=== PATIENT | male | born 1965 | race Caucasian/White ===

== ENCOUNTER 2018-11-14 08:55 | Day surgery (SDC) | payer BC ==
[~2018-11-14 08:55] MED LIST: BUPIVACAINE 0.5% PF 10 ML VIAL ONE
[2018-11-14] MEDS ORDERED: CEFAZOLIN/SWI 1gm 1 GM/10 ML SYR ONE (08:56)
[2018-11-14] MEDS ORDERED: Ringers Lactate 1,000 ML IV ONE (08:56)
[2018-11-14] MEDS ORDERED: PROPOFOL 200 MG/20 ML VIAL IV ONE (09:27)
[2018-11-14] MEDS ORDERED: MIDAZOLAM HCL 2 MG/2 ML INJ ONE (09:28)
[2018-11-14] MEDS ORDERED: LIDOCAINE 2% MPF 5 ML VIAL ONE (09:28)
[2018-11-14] MEDS ORDERED: ROCURONIUM 50 MG/5 ML VIAL IV ONE (09:28)
[2018-11-14] MEDS ORDERED: FENTANYL CITR 100 MCG/2 ML ONE (09:28)
[2018-11-14] MEDS ORDERED: ONDANSETRON 4 MG/2 ML VIAL ONE (09:29)
[2018-11-14] MEDS ORDERED: KETOROLAC 30 MG/ML INJ ONE (11:05)
[2018-11-14] MEDS: HYDROMORPHONE HCL 1 MG/ML INJ ONE ×4 (11:33→11:55)
[2018-11-14] MEDS ORDERED: HYDROCODONE/APAP 7.5/325 MG TAB PO ONE (12:50)
[2018-11-14] MEDS ORDERED: HYDROCODONE/APAP 7.5/325 MG TAB ONE (13:03)
--- NOTE | 2018-11-14 13:11 | OP ---
Date of Procedure: 11/14/2018 Surgeon: Marvin Tejeda MD Forensic Investigator: OLI Junior. Preoperative Diagnosis: Incarcerated umbilical hernia. Postoperative Diagnosis: Incarcerated umbilical hernia. Procedures: Laparoscopic repair of incarcerated umbilical hernia. Partial omentectomy. Estimated Blood Loss: Minimal. Specimen: Hernia sac and omentum. Findings: Above. Complications: None. Anesthesia: General. Disposition: The patient tolerated the procedure in stable condition, taken to Recovery in good gene ral condition. Procedure In Detail: The patient was brought to the OR and placed in supine position. General anest hesia was begun. The patient was prepped and draped in usual sterile fashion. Marcaine 0.5% was inf iltrated locally. A 15-blade was used to make a 1 cm left upper quadrant incision. Subcutaneous tis sues divided. The fascia was identified and divided. A #1 Vicryl stay suture was placed. Peritonea l cavity was entered with sharp and blunt dissection. A 12 mm trocar was placed into the peritoneal cavity under direct vision. Pneumoperitoneum was established. A 5 mm trocar placed in the left lowe r quadrant. Laparoscopy revealed a large incarcerated omental hernia in the umbilicus. The neck was small; however, the hernia itself was very big and protruding. LigaSure was used to divide the omen schuyler at the level of the peritoneal surface and then a 6 cm incision made over the incision where the patient had excess skin, which was excised as well and then the hernia sac and omental contents were identified. Partial omentectomy was done and specimen consisting of sac and omentum was sent to Path ology. Good fascial edges were obtained. Approximately 4 cm defect remained, and then #1 PDS runnin g suture used to close the fascial defect. Pneumoperitoneum was established and then a 10 x [address] Marlex mesh placed in the peritoneal cavity. Balloon system utilized in the standard way and then AbsorbaTack was used to secure the mesh to the peritoneal surface, complete coverage with good borde rs of at least [address] around the hernia defect was accomplished, and then there was no evid ence of bleeding or bowel injury appreciated. Subsequently, all trocars were removed under direct vi nish. Stay sutures were tied to each other to approximate the fascia. Subcutaneous wounds were irri gated. Bleeding controlled with cautery. A 3-0 chromic used to reapproximate subcutaneous tissue. Poornima used to closed skin. Sterile dressing was applied. The patient was awakened and taken to Re covery in good general condition. JORGITO/KACIE Voice ID: [id number] Report ID: [id number]
--- NOTE | 2018-11-14 13:11 | DS ---
The patient will go to Day Surgery and home when stable. Disposition: Home. Condition: Stable. Discharge Instructions: Resume home medications and diet. Activity as tolerated. No heavy lifting. Remove outer dressing in 2 days. Shower. Keep wound clean and dry. Keep abdominal binder as inst ructed. Tylenol No. 3 one table p.o. q.4 p.r.n. pain. Follow up in my office in 10 days. Call for a ppointment. JORGITO/KACIE Voice ID: [id number] Report ID: [id number]
== END 2018-11-14 13:55 | disposition home or self-care (01) ==
LOC: OR 08:55
PROVIDERS: ATTEND Surgery
PROC: 0WUF4JZ Supplement Abdominal Wall with Synthetic Substitute, Percutaneous Endoscopic Approach (ICD-10-PCS; principal; 2018-11-14 10:15)
DX: K42.0 Umbilical hernia with obstruction, without gangrene (principal); E11.9 Type 2 diabetes mellitus without complications; I10 Essential (primary) hypertension
CPT/HCPCS: 88302; J0690; J1170; J2250; J2405; J2704; J3010

== ENCOUNTER 2023-10-21 12:27 | Emergency (ER) | payer SELFPAY ==
--- OUTSIDE RECORDS SUMMARY | 2023-10-21 12:51 | XMS REPORT | Continuity of Care Document ---
Author Name Unknown Address [address] [facility] [address] [place] [address] [facility] Address [address] [facility] [address] [place] [address] Care Team Providers Care Side Hemmer Name Role Phone NONE, NONE Primary Care Physician Unavailab CARSON Olmedo Attending Clinician Unavai ULICES Antonio Attending Clinician Unavailable DAYNA ADRIAN Attending Clinician Unava ilable SYSTEM, PROVIDER NOT IN Attending Clinician Unav ailGERRY Zapata Attending Clinician Unavail able GERRY PATEL Attending Clinician Unavail able [facility]ending Clinician U Frandy Rodriguez MD Attending Clinician [phone] FRANDY UMANA Attending Clinician Unavailable 1, [facility] Attending Clinician Unavailable Carson Garcia MD Attending Clinician [phone] Pob, [facility] Main Attending Clinician Unavailabl e Doctor Unassigned, [place] Attending Clinician U Jim Ellis Attending Clinician [phone] Alfredo Jaffe DO Attending Clinician [phone] Carson Goddard MD Attending Clinician + [phone] Linda Mai LVN Attending Clinician [phone] Lea CHAPPELL, Pedro Becerra Attending Clinician Dennys CHAPPELL, Mohsen Attending Clinician [phone] ERUM MERAZ Attending Clinician Unavailable Nitza CHAPPELL, Libseth Attending Clinician LISBETH High Attending Clinician Unavailjael swain 6, [facility] Infusion Chair Attending Clinician Del Woodward MD, Shira Ramos Attending Clinician [phone] SHIRA WOODWARD RP Attending Clinician Unavailable [facility] Attending Clinician Unavailable Jamil SOTO, Gertrude Magdaleno Attending Clinician Unavail able 5, [facility] Infusion Chair Attending Clinician Del Adrian MD, Dayna Rand Attending Clinician [phone] ALIZE CARABALLO Attending Clinician Unavailable Ilya VELASCO, Alize Attending Clinician [phone] Only, [facility] Test Attending Clinician Unavailable Kaela CHAPPELL, Og Thompson Attending Clinician [phone] OG SHERWOOD Attending Clinician Unavailjosh Peace MD, Carson Barlow Attending Clinician [phone] Yaneli Diaz DO Attending Clinici an CARSON GARCIA Attending Clinician UnavailSalazar Brooks DO Attending Clinician [phone] Erum Thompson Attending Clinician [phone], [facility] Infusion Chair Attending Clinician Dayna Henriquez MD Attending Clinician [phone] Ki CHAPPELL, Manasa Patino Attending Clinician 2, [facility] Infusion Chair Attending Clinician Del talavera 3, [facility] Infusion Chair Attending Clinician Del Alvarez MD, Ulices Kenny Attending Clinician [phone] Robert De Leon MD Attending Clinician [phone] PHILLY DUMONT Attending Clinician Unavailable Philly Marshall Attending Clinician [phone] Michelle Abraham Attending Clinician Unavaila brynn Sheldon MD, Eliud Attending Clinician [phone] Roshan Madrid MD Attending Clinician [phone] Kenny CHAPPELL, Luis Attending Clinician + Sai Painter MD Attending Clinician [phone] Elham Wells MD Attending Clinician Unavailab Matt Key DO Attending Clinician [phone] Doni Coelho MD Attending Clinician [phone] DONI COELHO Attending Clinician Unavailable ALFREDO JAFFE Admitting Clinician Unavailable ULICES ALVAREZ Admitting Clinician Unavailable DAYNA ADRIAN Admitting Clinician Unava GERRY Conroy Admitting Clinician Unavail able Alfredo Jaffe DO Admitting Clinician [phone] PEDRO MANRIQUEZ Admitting Clinician Unavail able Pedro Manriquez MD Admitting Clinician LISBETH GODDARD Admitting Clinician Unavaila Lisbeth Vizcaino MD Admitting Clinician FRANDY UMANA Admitting Clinician Unavailable Dayna Adrian MD Admitting Clinician [phone] CARSNO GODDARD Admitting Clinician Carson Ribeiro MD Admitting Clinician + [phone] Ulices Alvarez MD Admitting Clinician [phone] Doni Coelho MD Admitting Clinician [phone] DONI COELHO Admitting Clinician Unavailable Payers Payer Name Policy Type Policy Number Effective Date Expirati on Date Source [facility] [id number] 2022 00:00:00 2022 00:00:00 [id number] 1959 00:00:00 Problems Condition Name Condition Details Condition Category Status Onset Date Resolution Date Last Treatment Date Treating Clinician Comments Source Wound cellulitis Wound cellulitis Disease Active 12-27 00:00: 00 [facility] Subacute frontal sinusitis Subacute frontal sinusitis Disease Active 2023-0 7-03 00:00: 00 [facility] Neutropeni c fever Neutropeni c fever Disease Active 0 6- 00:00: 00 [facility] Pancytopen ia due to antineopla stic chemothera py Pancytopen ia due to antineopla stic chemothera py Disease Active 0 6 00:00: 00 [facility] Immunocomp romised status associated with infection Immunocomp romised status associated with infection Disease Active 12-19 00:00: 00 [facility] Chronic hepatitis C Chronic hepatitis C Disease Active 0 6 00:00: 00 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 Burkitt's lymphoma of lymph nodes of multiple sites Burkitt's lymphoma of lymph nodes of multiple sites Disease Active 2021-06 1-23 00:00: 00 [facility] Burkitt's lymphoma Burkitt's lymphoma Disease Active 2021-06 0-25 00:00: 00 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 Burkitt lymphoma Burkitt lymphoma Disease Active 2021-06 0-13 00:00: 00 [facility] Neoplasm/c ancer Neoplasm/c ancer Disease Active 9-13 00:00: 00 [facility] Bilateral leg edema Bilateral leg edema Disease Active 9-13 00:00: 00 [facility] Hypophosph atemia Hypophosph atemia Disease Active - 00:00: 00 [facility] Hypercalce jacqueline Hypercalce jacqueline Disease Active 02-27 00:00: 00 [facility] Obesity (BMI 30-39.9) Obesity (BMI 30-39.9) Disease Active 02-27 00:00: 00 [facility] Cirrhosis of liver Cirrhosis of liver (Problem) Problem Active 2023-10-19 18:02:[address] [facility] (LUF/LI V/SA) Malignant lymphoma (clinical) Malignant lymphoma (clinical) (Problem) Problem Active 2023-10-19 18:02:[address] [facility] (LUF/LI V/SA) History of hepatitis C History of hepatitis C (Problem) Problem Active 2023-10-19 18:02:[address] [facility] (LUF/LI V/SA) Repair of ventral hernia Repair of ventral hernia (Problem) Problem Active 2023-10-19 18:29:[address] [facility] (LUF/LI V/SA) Allergies, Adverse Reactions, Alerts Allergy Name Allergy Type Status Severity Reaction(s) Onset Date Inactive Date Treating Clinician Comments Source NO KNOWN ALLERGIE S Drug Class Active [facility] No Known Drug Allergie s DA Active [facility] (LUF/LI V/SA) Social History Social Habit Start Date Stop Date Quantity Comments Source History of tobacco use Cigarette Smoker [facility] History SDOH Social Connections Get Together [facility] History SDOH Social Connections [facility] History SDOH Social Connections Membership [facility] History SDOH Social Connections Meetings [facility] Gender identity [facility] of Social function 2023-01-23 00:00:00 2023-01-23 00:00:00 [facility] History SDOH Food Worry 2022-12-28 00:00:00 2022-12-28 00:00:00 1 [facility] History SDOH Food Scarcity 2022-12-28 00:00:00 2022-12-28 00:00:00 1 [facility] History SDOH Transport Med 2022-12-28 00:00:00 2022-12-28 00:00:00 2 [facility] History SDOH Transport Non-Med 2022-12-28 00:00:00 2022-12-28 00:00:00 2 [facility] History SDOH Alcohol Frequency 2022-12-28 00:00:00 2022-12-28 00:00:00 1 [facility] History SDOH Social Connections Phone 2022-12-28 00:00:00 2022-12-28 00:00:00 5 [facility] History SDOH Social Connections Living 2022-12-28 00:00:00 2022-12-28 00:00:00 5 [facility] History SDOH Financial 2022-12-28 00:00:00 2022-12-28 00:00:00 4 [facility] History SDOH Physical Activity DPW 2022-12-28 00:00:00 2022-12-28 00:00:00 0 [facility] History SDOH Physical Activity MPS 2022-12-28 00:00:00 2022-12-28 00:00:00 0 [facility] History SDOH Housing Unable to Pay 2022-12-28 00:00:00 2022-12-28 00:00:00 2 [facility] History SDOH Housing Places Lived 2022-12-28 00:00:00 2022-12-28 00:00:00 1 [facility] History SDOH Housing Homeless Last Year 2022-12-28 00:00:00 2022-12-28 00:00:00 2 [facility] Tobacco Comment 2022-12-20 00:00:00 2022-12-20 00:00:00 Does not smoke anymore [facility] Exposure to SARS-CoV-2 (event) 2022-11-10 00:00:00 2022-11-20 10:14:00 Not sure [facility] History SDOH Alcohol Std Drinks 2022-07-17 00:00:00 2022-07-17 00:00:00 1 [facility] History SDOH Alcohol Binge 2022-07-17 00:00:00 2022-07-17 00:00:00 1 [facility] Education 2022-05-25 00:00:00 2022-05-25 00:00:00 12 [facility] Alcohol intake 2022-03-06 00:00:00 2022-03-06 00:00:00 Current drinker of alcohol (finding) [facility] Tobacco use and exposure 2022-02-27 00:00:00 2022-02-27 00:00:00 Smokeless tobacco non-user [facility] Sex Assigned At 1965 00:00:00 1965 00:00:00 [facility] Smoking Status Start Date Stop Date Source [facility]SA) Ex-smoker 2022-12-20 00:00:00 2022-12-20 [facility]00[facility] Medications Ordered Medication Name Filled Medication Name Start Date Stop Date Current Medication? Ordering Clinician Indication Dosage Frequency Signature (SIG) Comments Components Source furosemide 40 MG Oral Tablet furosemide 40 MG Oral Tablet 10-18 21:00: 15 No 40mg orally every morning [facility] (LUF/LI V/SA) spironolact one 100 MG Oral Tablet spironolact one 100 MG Oral Tablet 10-18 21:00: 14 No 100mg 1xD orally daily [facility] (LUF/LI V/SA) fludeoxyglu cose F-18 (FDG) injection 10 millicurie 02-26 15:25: 00 02-26 15:28 :00 No [id number] 10mCi 10 millicurie , Intravenou s, ONCE, 1 dose, On Sat02/26/23 at 1030, Routine [facility] levoFLOXaci n (LEVAQUIN) tablet 500 mg 12-28 14:00: 00 Yes 500mg 500 mg, Oral, Q24H ABX, First dose on Sat12/28/22 at 0900, Until Discontinu ed, JOSEFINA
Re ason for Anti-Infec tive: Empiric Therapy for Suspected Infection< br>Empiric Therapy Site: Blood
D uration of therapy: [address] [facility] sulfamethox azole-trime thoprim (BACTRIM DS) 800-160 mg per tablet 1 tablet 12-28 14:00: 00 Yes 1{tbl} 1 tablet, Oral, QM// SAT, First dose on Sat12/28/22 at 0900, Until Discontinu ed, JOSEFINA
Re ason for Anti-Infec tive: Empiric Therapy for Suspected Infection< br>Empiric Therapy Site: Blood
D uration of therapy: [address] [facility] omeprazole (PRILOSEC) capsule 20 mg 12-28 14:00: 00 Yes 20mg 20 mg, Oral, DAILY, First dose on Sat12/28/22 at 0900, Until Discontinu ed [facility] foLIC acid (FOLATE) tablet 1 mg 12-28 14:00: 00 Yes 1mg 1 mg, Oral, DAILY, First dose on Sat12/28/22 at 0900, Until Discontinu ed, Routine [facility] febuxostat (ULORIC) tablet 40 mg 12-28 14:00: 00 Yes 40mg 40 mg, Oral, DAILY, First dose on Sat12/28/22 at 0900, Until Discontinu ed, Routine [facility] cholecalcif andrzej (vitamin D3) tablet 1,000 Units 12-28 14:00: 00 Yes 1000U 1,000 Units, Oral, DAILY, First dose on Sat12/28/22 at 0900, Until Discontinu ed, Routine [facility] chlorhexidi ne (PERIDEX) 0.12 % mouthwash 15 mL 12-28 13:00: 00 Yes 15mL 15 mL, Oral (Swish And Spit Out), BID, First dose on Sat12/28/22 at 0800, Until Discontinu ed, Routine [facility] calcium carbonate (OSCAL-500) tablet 500 mg 12-28 13:00: 00 Yes 500mg 500 mg, Oral, BID MEALS, First dose on Sat12/28/22 at 0800, Until Discontinu ed, Routine [facility] acyclovir (ZOVIRAX) tablet 400 mg 12-28 13:00: 00 Yes 400mg 400 mg, Oral, BID, First dose on Sat12/28/22 at 0800, Until Discontinu ed, JOSEFINA [facility] KCL (KLOR-CON M20) tablet 40 mEq 12-28 11:30: 00 12-28 11:00 :00 No 40meq 40 mEq, Oral, ONCE, 1 dose, On Sat12/28/22 at 0630, Routine [facility] posaconazol e (NOXAFIL) tablet DR 300 mg 12-28 05:15: 00 Yes 300mg 300 mg, Oral, Q24H, First dose on Sat12/28/22 at 0015, Until Discontinu ed, Routine
Reason for Anti-Infec tive: Empiric Therapy for Suspected Infection< br>Empiric Therapy Site: Blood
D uration of therapy: 5 days
Re stricted use approved by: Heme/Onc faculty [facility] vancomycin (VANCOCIN) 1,500 mg in NaCl 0.9% (NS) 500 mL VIAL-MATE IV piggyback 12-28 04:15: 00 01-04 04:14 :00 No 15mg/kg 1,500 mg (rounded from 1,456.5 mg = 15 mg/kg ?97.1 kg), IV Piggyback, Q12H ABX, 14 doses, First dose on Sat12/27/22 at 2315, Last dose on Sat01/03/23 at 1115, Administer over 90 Minutes, 500 mL
R toña for Anti-Infec tive: Documented Infection< br>Documen elias Infection Site: Skin / Soft Tissue
Duration of Therapy: [address] [facility] acetaminoph en (TYLENOL) tablet 650 mg 12-28 04:10: 28 Yes 650mg 650 mg, Oral, Q6HPRN, Starting on Sat12/27/22 at 2310, Until Discontinu ed, Routine, Pain (scale 1-3) [facility] sulfamethox azole-trime thoprim 800-160 mg per tablet 12-28 00:00: 00 Yes [id number] 1{tbl} Take 1 tablet by mouth every Saturday, Saturday and Saturday. [facility] posaconazol e [address] 12-28 00:00: 00 Yes [id number] 300mg Take 3 tablets by mouth every 24 (twenty-fo ur) hours. [facility] amoxicillin 500 mg tablet 12-28 00:00: 00 01-08 04:59 :00 No [id number] 500mg Take 1 tablet by mouth in the morning and 1 tablet at noon and 1 tablet in the evening. Do all this for [address] [facility] doxycycline hyclate 100 mg capsule 12-28 00:00: 00 01-08 04:59 :00 No [id number] 100mg Take 1 capsule by mouth every 12 (twelve) hours for [address] [facility] posaconazol e [address] 12-27 00:00: 00 12-28 00:00 :00 No [id number] 300mg Take 3 tablets by mouth every 24 (twenty-fo ur) hours. [facility] KCL (KLOR-CON M20) tablet 20 mEq 12-26 13:00: 00 12-26 13:34 :00 No 20meq 20 mEq, Oral, ONCE, 1 dose, On Sat12/26/22 at 0800, Routine [facility] levoFLOXaci n 500 mg tablet 12-26 00:00: 00 Yes [id number] 500mg Take 1 tablet by mouth in the morning. Start on Day 8 and take [address] [facility] acyclovir 400 mg tablet 12-26 00:00: 00 Yes [id number] 400mg Take 1 tablet by mouth in the morning and 1 tablet in the evening. [facility] febuxostat 40 mg tablet 12-26 00:00: 00 Yes [id number] 40mg Take 1 tablet by mouth in the morning. [facility] ceFEPIme (MAXIPIME) 2,000 mg in NaCl 0.9% (NS) 100 mL MINI-BAG 12-25 09:45: 00 12-28 01:44 :00 No 2000mg 2,000 mg, IV Piggyback, Q8H ABX, 8 doses, First dose (after last modificati on) on Sat12/25/22 at 0445, Last dose on Sat12/27/22 at 1245, Administer over 4 Hours, 100 mL
Reas on for Anti-Infec tive: Empiric Non-Surgic al Prophylaxi s
Durat ion of therapy: 5 days [facility] ceFEPIme (MAXIPIME) 2,000 mg in NaCl 0.9% (NS) 100 mL MINI-BAG 12-22 22:45: 00 12-25 05:48 :52 No 2000mg 2,000 mg, IV Piggyback, Q8H ABX, 15 doses, First dose (after last modificati on) on Sat12/22/22 at 1745, Last dose on Sat12/27/22 at 0945, Administer over 4 Hours, 100 mL
Reas on for Anti-Infec tive: Empiric Non-Surgic al Prophylaxi s
Durat ion of therapy: [address] [facility] ceFEPIme (MAXIPIME) 1,000 mg in NaCl 0.9% (NS) 100 mL MINI-BAG 12-22 15:00: 00 12-22 15:07 :00 No 1000mg 1,000 mg, IV Piggyback, ONCE, 1 dose, On Sat12/22/22 at 1000, Administer over 30 Minutes, 100 mL
Reas on for Anti-Infec tive: Empiric Non-Surgic al Prophylaxi s
Durat ion of therapy: [address] [facility] filgrastim- sndz (ZARXIO) 480 mcg/0.8 mL injection syringe 480 mcg 12-22 14:00: 00 12-26 13:35 :00 No 480ug 480 mcg, Subcutaneo us, DAILY, 5 doses, First dose (after last modificati on) on Sat12/22/22 at 0900, Last dose on Sat12/26/22 at 0900, Routine
sales team member approving Restricted medication : [place] [facility] levoFLOXaci n (LEVAQUIN) tablet 750 mg 12-21 22:00: 00 12-22 14:13 :52 No 750mg 750 mg, Oral, QPM, 7 doses, First dose on Sat12/21/22 at 1700, Last dose on Sat12/27/22 at 1700, JOSEFINA
Re ason for Anti-Infec tive: Empiric Non-Surgic al Prophylaxi s
Durat ion of therapy: [address] [facility] filgrastim- sndz (ZARXIO) 480 mcg/0.8 mL injection syringe 480 mcg 12-19 14:00: 00 12-22 13:47 :08 No 480ug 480 mcg, Subcutaneo us, DAILY, 5 doses, First dose on Sat12/19/22 at 0900, Last dose on Sat12/23/22 at 0900, Routine
sales team member approving Restricted medication : [place] [facility] posaconazol e (NOXAFIL) tablet DR 300 mg 12-18 15:15: 00 Yes 300mg 300 mg, Oral, Q24H ABX, First dose on Sat12/18/22 at 1015, Until Discontinu ed, Routine
Reason for Anti-Infec tive: Empiric Non-Surgic al Prophylaxi s
Durat ion of therapy: 72 hours
R estricted use approved by: Heme/Onc faculty [facility] melatonin (MELATIN) tablet 6 mg 12-18 00:34: 07 Yes 6mg 6 mg, Oral, QHSPRN, Starting on Sat12/17/22 at 1934, Until Discontinu ed, Routine, Insomnia [facility] melatonin (MELATIN) tablet 6 mg 12-17 01:30: 00 12-17 01:06 :00 No 6mg 6 mg, Oral, ONCE, 1 dose, On 12/16/22 at 2030, Routine [facility] posaconazol e (NOXAFIL) 300 mg in NaCl 0.9% (NS) piggyback 12-16 21:45: 00 12-18 14:08 :47 No 300mg 300 mg, IV Piggyback, Q24H ABX, First dose on 12/16/22 at 1645, Until Discontinu ed, Administer over 90 Minutes, 150 mL
Reas on for Anti-Infec tive: Empiric Therapy for Suspected Infection& lt;br>Empi carmen Therapy Site: Blood
D uration of therapy: [address] [facility] fluconazole (DIFLUCAN) tablet 400 mg 12-16 14:00: 00 12-16 20:33 :38 No 400mg 400 mg, Oral, DAILY, 5 doses, First dose on 12/16/22 at 0900, Last dose on Aditi 12/20/22 at 0900, JOSEFINA
Re ason for Anti-Infec tive: Empiric Non-Surgic al Prophylaxi s
Durat ion of therapy: [address] [facility] KCL (KLOR-CON M20) tablet 40 mEq 12-16 13:00: 00 12-16 13:28 :00 No 40meq 40 mEq, Oral, Q2H, 1 dose, First dose on 12/16/22 at 0800, Routine [facility] iopamidol (ISOVUE 370-500 mL) injection 80 mL 12-16 05:46: 00 12-16 05:35 :00 No [id number] 80mL 80 mL, Intravenou s, ONCE, 1 dose, On 12/16/22 at 0100, Routine [facility] melatonin (MELATIN) tablet 6 mg 12-16 02:45: 00 12-16 04:41 :00 No 6mg 6 mg, Oral, ONCE, 1 dose, On 12/15/22 at 2145, Routine [facility] ceFEPIme (MAXIPIME) 2,000 mg in NaCl 0.9% (NS) 100 mL MINI-BAG 12-14 22:45: 00 12-21 00:23 :00 No 2000mg 2,000 mg, IV Piggyback, Q8H ABX, 18 doses, First dose (after last modificati on) on Sat12/14/22 at 1745, Last dose on Sat12/20/22 at 0945, Administer over 4 Hours, 100 mL
Reas on for Anti-Infec tive: Empiric Therapy for Suspected Infection< br>Empiric Therapy Site: Blood
D uration of therapy: [address] [facility] vancomycin (VANCOCIN) 2,000 mg in NaCl 0.9% (NS) 500 mL piggyback 12-13 14:30: 00 12-16 01:38 :45 No 2000mg 2,000 mg, IV Piggyback, Q12H ABX, 6 doses, First dose (after last modificati on) on Sat12/13/22 at 0930, Last dose on Sat12/15/22 at 2130, Administer over 120 Minutes, 500 mL
Reas on for Anti-Infec tive: Empiric Therapy for Suspected Infection< br>Empiric Therapy Site: Blood
D uration of therapy: [address] [facility] psyllium husk (METAMUCIL (SUGAR FREE)) 3.4 gram oral powder packet 1 Packet 12-13 14:00: 00 Yes 1{packe t} 1 Packet, Oral, DAILY, First dose on Sat12/13/22 at 0900, Until Discontinu ed, Routine [facility] filgrastim- sndz (ZARXIO) 480 mcg/0.8 mL injection syringe 480 mcg 12-12 17:00: 00 12-18 14:04 :00 No 480ug 480 mcg, Subcutaneo us, DAILY, 7 doses, First dose on Sat12/12/22 at 1200, Last dose on Sat12/18/22 at 0900, Routine
sales team member approving Restricted medication : SAMANTHA HURTADO [facility] iopamidol (ISOVUE 370-500 mL) injection 80 mL 12-12 14:29: 00 12-12 14:31 :00 No [id number] 80mL 80 mL, Intravenou s, ONCE, 1 dose, On Sat12/12/22 at 0945, Routine [facility] sulfamethox azole-trime thoprim (BACTRIM DS) 800-160 mg per tablet 1 tablet 12-12 14:00: 00 Yes 1{tbl} 1 tablet, Oral, QMON// SAT, First dose on Sat12/12/22 at 0900, Until Discontinu ed, JOSEFINA
Re ason for Anti-Infec tive: Empiric Non-Surgic al Prophylaxi s
Durat ion of therapy: 5 days [facility] ceFEPIme (MAXIPIME) 1,000 mg in NaCl 0.9% (NS) 100 mL MINI-BAG 12-11 22:45: 00 12-14 18:34 :22 No 1000mg 1,000 mg, IV Piggyback, Q8H ABX, 15 doses, First dose on Sat12/11/22 at 1745, Last dose on Sat12/16/22 at 0945, Administer over 4 Hours, 100 mL
Reas on for Anti-Infec tive: Empiric Therapy for Suspected Infection< br>Empiric Therapy Site: Blood
D uration of therapy: 5 days [facility] acetaminoph en (TYLENOL) tablet 650 mg 12-11 18:40: 55 Yes 650mg 650 mg, Oral, Q6HPRN, Starting on Sat12/11/22 at 1340, Until Discontinu ed, Routine, Pain (scale 1-3), Temp > 38 C [facility] ceFEPIme (MAXIPIME) 1,000 mg in NaCl 0.9% (NS) 100 mL MINI-BAG 12-11 15:00: 00 12-11 18:34 :00 No 1000mg 1,000 mg, IV Piggyback, ONCE, 1 dose, On Sat12/11/22 at 1000, Administer over 30 Minutes, 100 mL
Reas on for Anti-Infec tive: Empiric Therapy for Suspected Infection< br>Empiric Therapy Site: Blood
D uration of therapy: [address] [facility] vancomycin (VANCOCIN) 1,500 mg in NaCl 0.9% (NS) 500 mL VIAL-MATE IV piggyback 12-11 14:30: 00 12-13 11:19 :53 No 15mg/kg 1,500 mg (rounded from 1,597.5 mg = 15 mg/kg ?106.5 kg), IV Piggyback, Q12H ABX, 10 doses, First dose on Sat12/11/22 at 0930, Last dose on Sat12/15/22 at 2130, Administer over 90 Minutes, 500 mL
Reas on for Anti-Infec tive: Empiric Therapy for Suspected Infection< br>Empiric Therapy Site: Blood
D uration of therapy: [address] [facility] KCL (KLOR-CON M20) tablet 20 mEq 12-11 12:15: 00 12-11 13:27 :00 No 20meq 20 mEq, Oral, ONCE, 1 dose, On Sat12/11/22 at 0715, Routine [facility] acetaminoph en ADULT (OFIRMEV) injection 1,000 mg 12-11 08:15: 00 12-11 08:20 :00 No 1000mg 1,000 mg, IV Infusion, at 400 mL/hr Administer over 15 Minutes, ONCE, 1 dose, On Sat12/11/22 at 0315, Routine
Indicatio n: Non-periop erative Patient
Approved by: Per Policy (NPO Status) [facility] cytarabine (PF) 5,376 mg in NaCl 0.9% (NS) 500 mL infusion 12-11 01:00: 00 12-11 18:45 :00 No [id number] 2400mg/ m2 5,376 mg (2,400 mg/m2 ?2.24 m2 Treatment Plan BSA from Recorded weight), IV Infusion, Q12H CHEMO, Administer over 2 Hours, First dose on Sat12/10/22 at 2000, For 2 doses
D o not refrigerat e.
[facility] ondansetron (ZOFRAN (PF)) injection 8 mg 12-11 00:30: 00 12-11 15:14 :00 No [id number] 8mg 8 mg, Slow IV Push, Q12H CHEMO, First dose on Sat12/10/22 at 1930, For 2 doses
A dminister 30 minutes prior to each dose of cyclophosp hamide. Dose s of ondansetro n 16 mg and above need to be administer ed via IV piggyback. For Dose >=24mg ECG monitoring is advisable.
[facility] leucovorin 15 mg in D5W 50 mL infusion 12-10 22:00: 00 12-11 20:38 :28 No [id number] 15mg 15 mg, IV Piggyback, Q6H ABX, First dose on Sat12/10/22 at 1700, Until Discontinu ed, Administer over 15 Minutes, 50 mL [facility] cytarabine (PF) 5,376 mg in NaCl 0.9% (NS) 500 mL infusion 12-09 23:30: 00 12-10 15:28 :00 No [id number] 2400mg/ m2 5,376 mg (2,400 mg/m2 ?2.24 m2 Treatment Plan BSA from Recorded weight), IV Infusion, Q12H CHEMO, Administer over 2 Hours, First dose on Sat12/09/22 at 1830, For 2 doses
D o not refrigerat e.
[facility] ondansetron (ZOFRAN (PF)) injection 8 mg 12-09 23:00: 00 12-10 12:51 :00 No [id number] 8mg 8 mg, Slow IV Push, Q12H CHEMO, First dose on Sat12/09/22 at 1800, For 2 doses
A dminister 30 minutes prior to each dose of cyclophosp hamide. Dose s of ondansetro n 16 mg and above need to be administer ed via IV piggyback. For Dose >=24mg ECG monitoring is advisable.
[facility] methylPREDN ISolone sodium succinate (SOLU-MEDRO L) 50 mg in NaCl 0.9% (NS) piggyback 12-09 23:00: 00 12-10 13:09 :00 No [id number] 50mg 50 mg, IV Piggyback, Q12H, 2 doses, First dose on 12/09/22 at 1800, Last dose on 12/09/22 at 2000, Administer over 15 Minutes, [address] [facility] methotrexat e (PF) 1,433.6 mg in NaCl 0.9% (NS) 1,000 mL infusion 12-08 22:00: 00 12-09 22:30 :00 No [id number] 640mg/m 2 1,433.6 mg (640 mg/m2 ?2.24 m2 Treatment Plan BSA from Recorded weight), IV Infusion, ONCE, Administer over 22 Hours, On 12/08/22 at 1700, For [address] after the completion of methotrexa te bolus.
[facility] ondansetron (ZOFRAN (PF)) injection 8 mg 12-08 21:00: 00 12-09 20:59 :00 No [id number] 8mg 8 mg, Slow IV Push, Q12H CHEMO, First dose on 12/08/22 at 1600, For 2 doses
D oses of ondansetro n 16 mg and above need to be administer ed via IV piggyback. For Dose >=24mg ECG monitoring is advisable. Admi nister first dose 30 minutes prior to chemothera py.
[facility] methotrexat e (PF) 358.4 mg in NaCl 0.9% (NS) 500 mL infusion 12-08 20:00: 00 12-08 22:48 :00 No [id number] 160mg/m 2 358.4 mg (160 mg/m2 ?2.24 m2 Treatment Plan BSA from Recorded weight), IV Infusion, ONCE, Administer over 120 Minutes, On Sat12/08/22 at 1500, For [address] [facility] methylPREDN ISolone sodium succinate (SOLU-MEDRO L) 50 mg in NaCl 0.9% (NS) piggyback 12-08 19:00: 00 12-09 12:59 :00 No [id number] 50mg 50 mg, IV Piggyback, Q12H, 2 doses, First dose on Sat12/08/22 at 1400, Last dose on Sat12/08/22 at 2000, Administer over 15 Minutes, [address] [facility] prednisoLON E acetate (PRED-FORTE ) 1 % ophthalmic suspension drops 1 Drop 12-08 17:00: 00 12-15 16:59 :00 No [id number] 1[drp] 1 Drop, Both Eyes, QID, 28 doses, First dose on Sat12/08/22 at 1200, Last dose on Sat12/15/22 at 0800, Routine [facility] KCL (KLOR-CON M20) tablet 40 mEq 12-08 13:00: 00 12-08 13:10 :00 No 40meq 40 mEq, Oral, Q2H, 1 dose, First dose on Sat12/08/22 at 0800, Routine [facility] sodium bicarbonate 8.4 % (1 mEq/mL) injection 50 mEq 12-08 12:45: 00 12-08 13:10 :00 No 50meq 50 mEq, Slow IV Push, ONCE, 1 dose, On Sat12/08/22 at 0745, Routine [facility] sodium bicarbonate 8.4 % (1 mEq/mL) injection 50 mEq 12-07 19:15: 00 12-07 19:57 :00 No 50meq 50 mEq, Slow IV Push, ONCE, 1 dose, On Sat12/07/22 at 1415, Routine [facility] sodium bicarbonate 150 mEq in D5W 1,000 mL IV infusion 12-07 19:00: 00 12-11 20:38 :28 No 150meq IV Infusion, at 125 mL/hr, 150 mEq, CONTINUOUS , Starting on Sat12/07/22 at 1400, Until Sat12/11/22 at 1538, [facility]ine [facility] foLIC acid (FOLATE) tablet 1 mg 12-07 14:00: 00 Yes 1mg 1 mg, Oral, DAILY, First dose on Sat12/07/22 at 0900, Until Discontinu ed, Routine [facility] febuxostat (ULORIC) tablet 40 mg 12-07 14:00: 00 Yes 40mg 40 mg, Oral, DAILY, First dose on Sat12/07/22 at 0900, Until Discontinu ed, Routine [facility] cholecalcif andrzej (vitamin D3) tablet 1,000 Units 12-07 14:00: 00 Yes 1000U 1,000 Units, Oral, DAILY, First dose on Sat12/07/22 at 0900, Until Discontinu ed, Routine [facility] sodium bicarbonate 150 mEq in D5W 1,000 mL IV infusion 12-07 13:17: 00 12-07 18:46 :58 No 150meq IV Infusion, at 75 mL/hr, 150 mEq, CONTINUOUS , Starting on Sat12/07/22 at 0830, Until Sat12/07/22 at 1346, Routine [facility] sodium bicarbonate 150 mEq in D5W 1,000 mL IV infusion 12-07 02:30: 00 12-07 12:54 :00 No 150meq IV Infusion, at 75 mL/hr, 150 mEq, ONCE, 1 dose, On Sat12/06/22 at 2130, Routine [facility] chlorhexidi ne (PERIDEX) 0.12 % mouthwash 15 mL 12-07 01:00: 00 Yes 15mL 15 mL, Oral (Swish And Spit Out), BID, First dose on Sat12/06/22 at 2000, Until Discontinu ed, Routine [facility] acyclovir (ZOVIRAX) tablet 400 mg 12-07 01:00: 00 Yes 400mg 400 mg, Oral, BID, First dose on Sat12/06/22 at 2000, Until Discontinu ed, JOSEFINA [facility] sennosides (SENOKOT) tablet 8.6 mg 12-07 01:00: 00 12-12 14:18 :42 No 8.6mg 8.6 mg, Oral, BID, First dose (after last modificati on) on Sat12/06/22 at 1999, Until Discontinu ed, Routine [facility] polyethylen e glycol 3350 powder 17 g 12-07 01:00: 00 12-12 14:18 :42 No 17g 17 g, Oral, BID, First dose on Sat12/06/22 at 2000, Until Discontinu ed, Routine [facility] magnesium hydroxide (MILK OF MAGNESIA) 400 mg/5 mL suspension 30 mL 12-06 22:30: 00 12-15 20:11 :10 No 30mL 30 mL, Oral, BID, First dose on Sat12/06/22 at 1730, Until Discontinu ed, Routine [facility] simethicone (GAS RELIEF (SIMETHICON E)) chewable tablet 80 mg 12-06 22:00: 00 Yes 80mg 80 mg, Oral, PC+HS, First dose on Sat12/06/22 at 1700, Until Discontinu ed, Routine [facility] calcium carbonate (OSCAL-500) tablet 500 mg 12-06 22:00: 00 Yes 500mg 500 mg, Oral, BID MEALS, First dose on Sat12/06/22 at 1700, Until Discontinu ed, Routine [facility] enoxaparin (LOVENOX) injection 40 mg 12-06 22:00: 00 12-12 12:11 :23 No 40mg 40 mg, Subcutaneo us, DAILY, First dose on Sat12/06/22 at 1700, Until Discontinu ed, Routine [facility] riTUXimab (RITUXAN) 840 mg in NaCl 0.9% (NS) 840 mL infusion 12-06 22:00: 00 12-07 01:30 :00 No [id number] 375mg/m 2 840 mg (375 mg/m2 ?2.24 m2 Treatment Plan BSA from Recorded weight), IV Infusion, ONCE, Administer over 90 Minutes, On Aditi 12/06/22 at 1700, For 1 dose
In itial infusion: start rate at 50 mg/hr. If there is no reaction, increase rate by 50 mg/hr increments every 30 minutes to a maximum of 400 mg/hr.&nbs p;Subseque nt infusions: initiate rate at 100 mg/hr. If infusion is well-laura ated, rate may be escalated in 100 mg/hr increments at 30 minute intervals to a maximum of 400 mg/hr.&nbs p;For NHL, from Cycle 2 onward, may give over 90 minutes.&n bsp; Diluted solution may be refrigerat ed for 24 hours.&nbs p; Co mplete administra tion within 8 hours from removal from refrigerat ion. Infu nish-Relat ed Reactions (IRR):&nbs p;Rituxima b products can cause severe, including fatal, infusion-r elated reactions. Severe reactions typically occurred during the first infusion with time to onset of 30-120 minutes.&n bsp; Rituximab product-in duced infusion-r elated reactions and sequelae include urticaria, hypotensio n, angioedema , hypoxia, bronchospa sm, pulmonary infiltrate s, acute respirator y distress syndrome, myocardial infarction , ventricula r fibrillati on, cardiogeni c shock, anaphylact oid events, or .&nbs p; Pr emedicate patients with an antihistam ine and acetaminop hen prior to dosing. For patients with Granulomat osis with Polyangiit is (GPA) (Peter's Granulomat osis) and Microscopi c Polyangiit is (MPA), methylpred nisolone 100 mg intravenou sly or its equivalent is recommende d 30 minutes prior to each infusion. [place] medical management (e.g., glucocorti coids, epinephrin e, bronchodil ators, or oxygen) for infusion-r elated reactions as needed. Depending on the severity of the infusion-r elated reaction and the required interventi ons, temporaril y or permanentl y discontinu e RUXIENCE. Resume infusion at a minimum 50% reduction in rate after symptoms have resolved.& nbsp;Close ly monitor the following patients: those with preexistin g cardiac or pulmonary conditions , those who experience d prior cardiopulm onary adverse reactions, and those with high numbers of circulatin g malignant cells (greater than or equal to 25,000/mm3 ). &n bsp;BOXED WARNINGS:& nbsp;THIAGO NG: FATAL INFUSION-R ELATED REACTIONS, SEVERE MUCOCUTANE OUS REACTIONS, HEPATITIS B VIRUS REACTIVATI ON and PROGRESSIV E MULTIFOCAL LEUKOENCEP HALOPATHY& nbsp;Infus ion-relate d reactions: Rituximab administra tion can result in serious, including fatal infusion-r elated reactions. Deaths within 24 hours of Rituximab infusion have occurred. Approximat patricia 80% of fatal infusion-r elated reactions occurred in associatio n with the first infusion. Monitor patients closely. Discontinu e Rituximab infusion for severe reactions and provide medical treatment for Grade 3 or 4 infusion-r elated reactions. &nbs p;Severe Mucocutane ous Reactions: Severe, including fatal, mucocutane ous reactions can occur in patients receiving Rituximab. &nbs p;Hepatiti s B Virus (HBV) Reactivati on: HBV reactivati on can occur in patients treated with Rituximab, in some cases resulting in fulminant hepatitis, hepatic failure, and . Screen all patients for HBV infection before treatment initiation , and monitor patients during and after treatment with Rituximab. Discontinu e Rituximab and concomitan t medication s in the event of HBV reactivati on. & nbsp;Progr essive Multifocal Leukoencep halopathy (PML), including fatal PML, can occur in patients receiving Rituximab. &nbs p;
[facility] methylpredn isolone sod succ (SOLU-MEDRO L) 50 mg piggyback 12-06 21:00: 00 12-07 09:33 :00 No [id number] 50mg 50 mg, Intravenou s, Q12H, 2 doses, First dose on Aditi 12/06/22 at 1600, Last dose on Sat12/06/22 at 2000, Administer over 3 Minutes [facility] acetaminoph en (TYLENOL) tablet 650 mg 12-06 21:00: 00 12-06 20:57 :00 No [id number] 650mg 650 mg, Oral, ONCE, 1 dose, On Sat12/06/22 at 1600, Routine [facility] lactated ringers IV infusion 1,000 mL 12-06 19:00: 00 12-07 18:59 :00 No 1000mL at 100 mL/hr, 1,000 mL, IV Infusion, CONTINUOUS , Starting on Sat12/06/22 at 1400, Until Sat12/07/22 at 1359, Routine [facility] diphenhydrA MINE (BENADRYL) injection 25 mg 12-06 17:45: 00 12-06 20:57 :00 No [id number] 25mg 25 mg, Slow IV Push, ONCE, 1 dose, On Sat12/06/22 at 1245, Routine [facility] proCHLORper azine (COMPAZINE) tablet 10 mg 12-06 17:37: 14 Yes [id number] 10mg 10 mg, Oral, Q6HPRN, Starting on Sat12/06/22 at 1237, Until Discontinu ed, Routine, Nausea and Vomiting (N/V) [facility] heparin lock flush (HEPARIN LOCKFLUSH(P ORCINE)(PF) ) 100 unit/mL injection 500 Units 12-06 17:37: 14 Yes [id number] 500U 500 Units, IV Push, PRN, Starting on Sat12/06/22 at 1237, Until Discontinu ed, Routine [facility] acetaminoph en (TYLENOL) tablet 650 mg 12-06 14:48: 08 12-11 18:41 :11 No 650mg 650 mg, Oral, Q6HPRN, Starting on Sat12/06/22 at 0948, Until Sat12/11/22 at 1341, Routine, Pain (scale 1-3) [facility] riTUXimab (RITUXAN) 800 mg in NaCl 0.9% (NS) 800 mL infusion 11-26 18:00: 00 11-26 19:25 :00 No [id number] 375mg/m 2 800 mg (rounded from 813.75 mg = 375 mg/m2 ?2.17 m2 Treatment Plan BSA from Recorded weight), IV Infusion, ONCE, Administer over 90 Minutes, On Sat11/26/22 at 1300, For 1 dose
In itial infusion: start rate at 50 mg/hr. If there is no reaction, increase rate by 50 mg/hr increments every 30 minutes to a maximum of 400 mg/hr.&nbs p;Subseque nt infusions: initiate rate at 100 mg/hr. If infusion is well-laura ated, rate may be escalated in 100 mg/hr increments at 30 minute intervals to a maximum of 400 mg/hr.&nbs p;For NHL, from Cycle 2 onward, may give over 90 minutes.&n bsp;Dilute d solution may be refrigerat ed for 24 hours.&nbs p;Complete administra tion within 8 hours from removal from refrigerat ion.
[facility] vinCRIStine (ONCOVIN) 2 mg in NaCl 0.9% (NS) 50 mL infusion 11-26 17:45: 00 11-26 17:50 :00 No [id number] 2mg 2 mg, IV Infusion, ONCE, Administer over 15 Minutes, On Sat11/26/22 at 1245, For 1 dose
Av oid extravasat ion.
[facility] diphenhydrA MINE (BENADRYL) tablet 25 mg 11-26 17:15: 00 11-26 17:14 :00 No [id number] 25mg 25 mg, Oral, ONCE, 1 dose, On Sat11/26/22 at 1215, Routine [facility] acetaminoph en (TYLENOL) tablet 650 mg 11-26 17:15: 00 11-26 17:13 :00 No [id number] 650mg 650 mg, Oral, ONCE, 1 dose, On Sat11/26/22 at 1215, Routine [facility] heparin lock flush (HEPARIN LOCKFLUSH(P ORCINE)(PF) ) 100 unit/mL injection 500 Units 11-26 17:09: 34 11-27 17:08 :34 No [id number] 500U 500 Units, IV Push, PRN, Starting on Sat11/26/22 at 1209, Until Sat11/27/22 at 1208, Routine [facility] pegfilgrast im-bmez (ZIEXTENZO) syringe 6 mg 11-20 19:00: 00 11-20 18:49 :00 No [id number] 6mg 6 mg, Subcutaneo us, ONCE, 1 dose, On Sat11/20/22 at 1400, Routine
sales team member approving Restricted medication : SHIRA WOODWARD RP [facility] sulfamethox azole-trime thoprim 800-160 mg per tablet 11-19 00:00: 00 12-04 04:59 :00 No [id number] 1{tbl} Take 1 tablet by mouth every Saturday, Saturday and Saturday for [address] [facility] ondansetron 4 mg disintegrat ing tablet 11-18 00:00: 00 12-28 00:00 :00 No [id number] 4mg Take 1 tablet by mouth every 8 (eight) hours as needed for Nausea and Vomiting (N/V). [facility] dexAMETHaso ne 4 mg tablet 11-18 00:00: 00 12-26 00:00 :00 No [id number] 40mg Take 10 tablets by mouth in the morning. Take on Days -14. [facility] fluconazole 100 mg tablet 11-18 00:00: 00 12-26 00:00 :00 No [id number] 400mg Take 4 tablets by mouth in the morning. [facility] levoFLOXaci n 500 mg tablet 11-18 00:00: 00 12-26 00:00 :00 No [id number] 500mg Take 1 tablet by mouth in the morning. Start on Day 8 and take [address] [facility] DOXOrubicin (ADRIAMYCIN ) 65.1 mg in Total Volume 32.55 mL injection 11-17 17:45: 00 11-17 20:23 :00 No [id number] 30mg/m2 65.1 mg (30 mg/m2 ?2.17 m2 Treatment Plan BSA from Recorded weight), IV Piggyback, ONCE, Administer over 15 Minutes, On 11/17/22 at 1245, For [address] [facility] vinCRIStine (ONCOVIN) 2 mg in NaCl 0.9% (NS) 50 mL infusion 11-17 17:30: 00 11-17 19:33 :00 No [id number] 2mg 2 mg, IV Infusion, ONCE, Administer over 15 Minutes, On 11/17/22 at 1230, For 1 dose
Av oid extravasat ion.
[facility] ondansetron (ZOFRAN (PF)) injection 8 mg 11-17 17:00: 00 11-18 12:59 :00 No [id number] 8mg 8 mg, Slow IV Push, Q12H, First dose on 11/17/22 at 1200, For 2 doses
A dminister 30 minutes prior to each dose of cyclophosp hamide. Dose s of ondansetro n 16 mg and above need to be administer ed via IV piggyback. For Dose >=24mg ECG monitoring is advisable.
[facility] proCHLORper azine 10 mg tablet 11-17 00:00: 00 Yes [id number] 10mg Take 1 tablet by mouth every 6 (six) hours as needed for Nausea and Vomiting (N/V). [facility] acyclovir 400 mg tablet 11-17 00:00: 00 12-26 00:00 :00 No [id number] 400mg Take 1 tablet by mouth in the morning and 1 tablet in the evening. [facility] ondansetron 4 mg disintegrat ing tablet 11-17 00:00: 00 11-18 00:00 :00 No [id number] 4mg Take 1 tablet by mouth every 8 (eight) hours as needed for Nausea and Vomiting (N/V). [facility] levoFLOXaci n 500 mg tablet 11-17 00:00: 00 11-18 00:00 :00 No [id number] 500mg Take 1 tablet by mouth in the morning. Start on Day 8 and take [address] [facility] fluconazole 100 mg tablet 11-17 00:00: 00 11-18 00:00 :00 No [id number] 400mg Take 4 tablets by mouth in the morning. [facility] dexAMETHaso ne 4 mg tablet 11-17 00:00: 11-18 00:00 :00 No [id number] 40mg Take 10 tablets by mouth in the morning. Take on Days 11-14. [facility] cycloPHOSph amide 390 mg in NaCl 0.9% (NS) 100 mL IV infusion 11-16 19:45: 00 11-17 09:59 :00 No [id number] 180mg/m 2 390 mg (rounded from 390.6 mg = 180 mg/m2 ?2.17 m2 Treatment Plan BSA from Recorded weight), IV Infusion, Q12H CHEMO, Administer over 180 Minutes, First dose on Sat11/16/22 at 1445, For [address] [facility] mesna (MESNEX) 1,302 mg in NaCl 0.9% (NS) 1,000 mL infusion 11-16 19:15: 00 11-17 18:46 :00 No [id number] 600mg/m 2 1,302 mg (600 mg/m2 ?2.17 m2 Treatment Plan BSA from Recorded weight), IV Infusion, ONCE, Administer over 24 Hours, On Sat11/16/22 at 1415, For [address] [facility] with cyclophosp hamide[address]
[facility] ondansetron (ZOFRAN (PF)) injection 8 mg 11-16 18:45: 00 11-17 06:59 :00 No [id number] 8mg 8 mg, Slow IV Push, Q12H CHEMO, First dose on Sat11/16/22 at 1345, For 2 doses
A dminister 30 minutes prior to each dose of cyclophosp hamide. Dose s of ondansetro n 16 mg and above need to be administer ed via IV piggyback. For Dose >=24mg ECG monitoring is advisable.
[facility] dexamethaso ne (DECADRON) 40 mg in NaCl 0.9% (NS) 50 mL piggyback 11-16 18:45: 00 11-16 18:34 :00 No [id number] 40mg 40 mg, IV Piggyback, ONCE, 1 dose, On Sat11/16/22 at 1345, Administer over 20 Minutes, [address] [facility] traZODone (DESYREL) tablet 50 mg 11-16 02:00: 00 Yes 50mg 50 mg, Oral, QHS, First dose (after last reorder) on Sat11/15/22 at 2100, Until Discontinu ed, Routine [facility] cycloPHOSph amide 390 mg in NaCl 0.9% (NS) 100 mL IV infusion 11-15 20:00: 00 11-16 10:29 :00 No [id number] 180mg/m 2 390 mg (rounded from 390.6 mg = 180 mg/m2 ?2.17 m2 Treatment Plan BSA from Recorded weight), IV Infusion, Q12H CHEMO, Administer over 180 Minutes, First dose on Sat11/15/22 at 1500, For [address] [facility] mesna (MESNEX) 1,302 mg in NaCl 0.9% (NS) 1,000 mL infusion 11-15 19:30: 00 11-16 22:33 :00 No [id number] 600mg/m 2 1,302 mg (600 mg/m2 ?2.17 m2 Treatment Plan BSA from Recorded weight), IV Infusion, ONCE, Administer over 24 Hours, On Sat11/15/22 at 1430, For [address] [facility] with cyclophosp hamide[address]
[facility] ondansetron (ZOFRAN (PF)) injection 8 mg 11-15 19:00: 00 11-16 07:28 :00 No [id number] 8mg 8 mg, Slow IV Push, Q12H CHEMO, First dose on Sat11/15/22 at 1400, For 2 doses
A dminister 30 minutes prior to each dose of cyclophosp hamide. Dose s of ondansetro n 16 mg and above need to be administer ed via IV piggyback. For Dose >=24mg ECG monitoring is advisable.
[facility] dexamethaso ne (DECADRON) 40 mg in NaCl 0.9% (NS) 50 mL piggyback 11-15 19:00: 00 11-15 19:54 :00 No [id number] 40mg 40 mg, IV Piggyback, ONCE, 1 dose, On Sat11/15/22 at 1400, Administer over 20 Minutes, [address] [facility] traZODone (DESYREL) tablet 50 mg 11-15 04:26: 00 11-15 04:50 :00 No 50mg 50 mg, Oral, ONCE, 1 dose, On Sat11/14/22 at 2330, Routine [facility] ramelteon (ROZEREM) tablet 8 mg 11-15 03:06: 00 11-15 03:18 :00 No 8mg 8 mg, Oral, ONCE, 1 dose, On Sat11/14/22 at 2215, Routine [facility] melatonin (MELATIN) tablet 3 mg 11-15 02:00: 00 Yes 3mg 3 mg, Oral, QHS, First dose on Sat11/14/22 at 2100, Until Discontinu ed, Routine [facility] cycloPHOSph amide 390 mg in NaCl 0.9% (NS) 100 mL IV infusion 11-14 20:00: 00 11-15 10:34 :00 No [id number] 180mg/m 2 390 mg (rounded from 390.6 mg = 180 mg/m2 ?2.17 m2 Treatment Plan BSA from Recorded weight), IV Infusion, Q12H CHEMO, Administer over 180 Minutes, First dose on Sat11/14/22 at 1500, For [address] [facility] mesna (MESNEX) 1,302 mg in NaCl 0.9% (NS) 1,000 mL infusion 11-14 19:30: 00 11-15 22:32 :00 No [id number] 600mg/m 2 1,302 mg (600 mg/m2 ?2.17 m2 Treatment Plan BSA from Recorded weight), IV Infusion, ONCE, Administer over 24 Hours, On Sat11/14/22 at 1430, For [address] [facility] with cyclophosp hamide[address]
[facility] ondansetron (ZOFRAN (PF)) injection 8 mg 11-14 19:00: 00 11-15 07:32 :00 No [id number] 8mg 8 mg, Slow IV Push, Q12H CHEMO, First dose on Sat11/14/22 at 1400, For 2 doses
A dminister 30 minutes prior to each dose of cyclophosp hamide. Dose s of ondansetro n 16 mg and above need to be administer ed via IV piggyback. For Dose >=24mg ECG monitoring is advisable.
[facility] dexamethaso ne (DECADRON) 40 mg in NaCl 0.9% (NS) 50 mL piggyback 11-14 19:00: 00 11-14 18:51 :21 No [id number] 40mg 40 mg, IV Piggyback, ONCE, 1 dose, On Sat11/14/22 at 1400, Administer over 20 Minutes, [address] [facility] fosaprepita nt (EMEND (FOSAPREPIT ANT)) 150 mg in NaCl 0.9% (NS) 150 mL IV piggyback 11-14 19:00: 00 11-14 19:37 :00 No [id number] 150mg 150 mg, IV Piggyback, ONCE, 1 dose, On Sat11/14/22 at 1400, Administer over 30 Minutes, 150 mL
Use has been approved by a hematology /oncology service line provider: Yes
Res tricted use approved by: FRANDY UMANA, HEM/ONC FACULTY [facility] sulfamethox azole-trime thoprim (BACTRIM DS) 800-160 mg per tablet 1 tablet 11-14 14:00: 00 Yes 1{tbl} 1 tablet, Oral, QMON// SAT, First dose (after last modificati on) on Sat11/14/22 at 0900, Until Discontinu ed, JOSEFINA
Re ason for Anti-Infec tive: Empiric Non-Surgic al Prophylaxi s
Durat ion of therapy: [address] [facility] rituximab-p vvr (RUXIENCE) 800 mg in NaCl 0.9% (NS) 800 mL infusion 11-13 21:00: 00 11-14 00:30 :00 No [id number] 375mg/m 2 800 mg (rounded from 813.75 mg = 375 mg/m2 ?2.17 m2 Treatment Plan BSA from Recorded weight), IV Infusion, ONCE, Administer over 90 Minutes, On Sat11/13/22 at 1600, For 1 dose
In itial infusion: start rate at 50 mg/hr. If there is no reaction, increase rate by 50 mg/hr increments every 30 minutes to a maximum of 400 mg/hr.&nbs p;Subseque nt infusions: initiate rate at 100 mg/hr. If infusion is well-laura ated, rate may be escalated in 100 mg/hr increments at 30 minute intervals to a maximum of 400 mg/hr.&nbs p;For NHL, from Cycle 2 onward, may give over 90 minutes.&n bsp;Dilute d solution may be refrigerat ed for 24 hours.&nbs p;Complete administra tion within 8 hours from removal from refrigerat ion.
[facility] dexamethaso ne (DECADRON) 40 mg in NaCl 0.9% (NS) 50 mL piggyback 11-13 20:30: 00 11-13 19:24 :00 No [id number] 40mg 40 mg, IV Piggyback, ONCE, 1 dose, On Sat11/13/22 at 1530, Administer over 20 Minutes, [address] [facility] acetaminoph en (TYLENOL) tablet 650 mg 11-13 20:00: 00 11-13 18:59 :00 No [id number] 650mg 650 mg, Oral, ONCE, 1 dose, On Sat11/13/22 at 1500, Routine [facility] pantoprazol e (PROTONIX) EC tablet 20 mg 11-13 14:00: 00 Yes 20mg 20 mg, Oral, DAILY, First dose on Sat11/13/22 at 0900, Until Discontinu ed [facility] foLIC acid (FOLATE) tablet 1 mg 11-13 14:00: 00 Yes 1mg 1 mg, Oral, DAILY, First dose on Sat11/13/22 at 0900, Until Discontinu ed, Routine [facility] febuxostat (ULORIC) tablet 40 mg 11-13 14:00: 00 Yes 40mg 40 mg, Oral, DAILY, First dose on Sat11/13/22 at 0900, Until Discontinu ed, Routine [facility] fluconazole (DIFLUCAN) tablet 200 mg 11-13 14:00: 00 11-14 17:35 :57 No [id number] 200mg 200 mg, Oral, DAILY, 7 doses, First dose on Sat11/13/22 at 0900, Last dose on Sat11/19/22 at 0900, JOSEFINA
Re ason for Anti-Infec tive: Empiric Non-Surgic al Prophylaxi s
Durat ion of therapy: [address] [facility] levoFLOXaci n (LEVAQUIN) tablet 500 mg 11-13 14:00: 00 11-14 17:35 :57 No [id number] 500mg 500 mg, Oral, DAILY, 14 doses, First dose on Sat11/13/22 at 0900, Last dose on Sat11/26/22 at 0900, JOSEFINA
Re ason for Anti-Infec tive: Empiric Non-Surgic al Prophylaxi s
Durat ion of therapy: [address] [facility] acyclovir (ZOVIRAX) tablet 400 mg 11-13 13:00: 00 Yes [id number] 400mg 400 mg, Oral, BID, First dose on Sat11/13/22 at 0800, Until Discontinu ed, JOSEFINA [facility] atropine injection 0.25 mg 11-13 12:35: 38 Yes [id number] .25mg 0.25 mg, IV Push, PRN, Starting on Sat11/13/22 at 0735, Until Discontinu ed, Routine, Stomach cramping, acute flushing. [facility] albuterol (PROVENTIL) 2.5 mg /3 mL (0.083 %) nebulizer solution 2.5 mg 11-13 12:35: 38 Yes [id number] 2.5mg 2.5 mg, Inhalation , PRN - SEE INSTRUCTIO NS, Starting on Sat11/13/22 at 0735, Until Discontinu ed, Routine, Shortness of Breath, Wheezing, As needed for chemothera py reactions [facility] methylpredn isolone sod succ (SOLU-MEDRO L) injection 125 mg 11-13 12:35: 38 Yes [id number] 125mg 125 mg, Slow IV Push, Administer over 3 Minutes, PRN - SEE INSTRUCTIO NS, Starting on Sat11/13/22 at 0735, Until Discontinu ed, Routine, As needed for chemothera py reactions [facility] EPINEPHrine (EPIPEN AUTO-INJECT OR) 0.3 mg/0.3 mL injection 0.3 mg 11-13 12:35: 38 Yes [id number] .3mg 0.3 mg, Intramuscu lar, PRN - SEE INSTRUCTIO NS, Starting on Sat11/13/22 at 0735, Until Discontinu ed, Routine, As needed for chemothera py reactions [facility] diphenhydrA MINE (BENADRYL) injection 50 mg 11-13 12:35: 38 Yes [id number] 50mg 50 mg, Slow IV Push, Administer over 2 Minutes, PRN - SEE INSTRUCTIO NS, Starting on Sat11/13/22 at 0735, Until Discontinu ed, Routine, As needed for chemothera py reactions< br>INDICAT ION: ANAPHYLAXI S [facility] heparin lock flush (HEPARIN LOCKFLUSH(P ORCINE)(PF) ) 100 unit/mL injection 500 Units 11-13 12:35: 37 Yes [id number] 500U 500 Units, IV Push, PRN, Starting on Sat11/13/22 at 0735, Until Discontinu ed, Routine [facility] iopamidol (ISOVUE 370-500 mL) injection 80 mL 11-13 04:00: 00 11-13 04:00 :00 No [id number] 80mL 80 mL, Intravenou s, ONCE, 1 dose, On Sat11/12/22 at 2300, Routine [facility] chlorhexidi ne (PERIDEX) 0.12 % mouthwash 15 mL 11-13 01:00: 00 Yes 15mL 15 mL, Oral (Swish And Spit Out), BID, First dose on Sat11/12/22 at 1999, Until Discontinu ed, Routine [facility] sulfamethox azole-trime thoprim (BACTRIM DS) 800-160 mg per tablet 1 tablet 11-13 01:00: 00 11-14 11:54 :37 No 1{tbl} 1 tablet, Oral, BID, First dose on Sat11/12/22 at 1999, Until Discontinu ed, JOSEFINA
Re ason for Anti-Infec tive: Empiric Non-Surgic al Prophylaxi s
Durat ion of therapy: 72 hours [facility] acyclovir (ZOVIRAX) tablet 400 mg 11-13 01:00: 00 11-13 12:57 :30 No 400mg 400 mg, Oral, BID, First dose on Sat11/12/22 at 1999, Until Discontinu ed, JOSEFINA [facility] enoxaparin (LOVENOX) injection 40 mg 11-12 22:00: 00 Yes 40mg 40 mg, Subcutaneo us, DAILY, First dose on Sat11/12/22 at 2000, Until Discontinu ed, Routine [facility] calcium carbonate (OSCAL-500) tablet 500 mg 11-12 22:00: 00 11-13 14:34 :23 No 500mg 500 mg, Oral, BID MEALS, First dose on Sat11/12/22 at 1700, Until Discontinu ed, Routine [facility] ondansetron (ZOFRAN (PF)) injection 4 mg 11-12 21:25: 51 Yes 4mg 4 mg, Slow IV Push, Q6HPRN, Starting on Sat11/12/22 at 1625, Until Discontinu ed, Routine, Nausea and Vomiting (N/V) [facility] HYDROcodone -acetaminop hen (NORCO) 10-325 mg tablet 1 tablet 11-12 21:25: 41 Yes 1{tbl} 1 tablet, Oral, Q6HPRN, Starting on Sat11/12/22 at 1625, Until Discontinu ed, Routine, Pain (scale 7-10) [facility] proCHLORper azine (COMPAZINE) tablet 10 mg 11-12 21:21: 06 Yes 10mg 10 mg, Oral, Q6HPRN, Starting on Sat11/12/22 at 1621, Until Discontinu ed, Routine, N/V unresponsi ve to Ondansetro n [facility] erythromyci n (ILOTYCIN) 5 mg/gram (0.5 %) ophthalmic ointment 0.5 Inch 10-12 02:13: 00 10-12 02:19 :00 No .5[in_u s] 0.5 Inch, Right Eye, ONCE, 1 dose, On Sat10/11/22 at 2115, JOSEFINA [facility] clindamycin (CLEOCIN HCL) capsule 300 mg 10-12 02:12: 00 10-12 02:19 :00 No 300mg 300 mg, Oral, ONCE, 1 dose, On Sat10/11/22 at 2115, JOSEFINA
Re ason for Anti-Infec tive: Documented Infection< br>Documen elias Infection Site: HEENT
D uration of Therapy: Other (see Comments)< br>Restric elias use approved by: ED PROVIDER [facility] moxifloxaci n 0.5 % ophthalmic drops 10-11 00:00: 00 10-19 04:59 :00 No [id number] 9102 1[drp] Place 1 Drop in each eye in the morning and 1 Drop in the evening. Do all this for [address] [facility] erythromyci n 5 mg/gram (0.5 %) ophthalmic ointment 10-11 00:00: 00 10-19 04:59 :00 No [id number] 9102 .5[in_u s] Place 0.5 Inches in right eye 4 (four) times daily for 7 days. Continue until you follow up with eye doctor. [facility] clindamycin 300 mg capsule 10-11 00:00: 00 10-18 00:00 :00 No [id number] 9102 300mg Take 1 capsule by mouth in the morning and 1 capsule at noon and 1 capsule in the evening. Do all this for [address] [facility] febuxostat 40 mg tablet 08-02 00:00: 00 12-26 00:00 :00 No [id number] 40mg Take 1 tablet by mouth in the morning. [facility] cyclophosph amide 488 mg in NaCl 0.9% (NS) 100 mL IV infusion 07-17 22:00: 00 07-18 21:59 :00 No [id number] 225mg/m 2 488 mg (rounded from 488.25 mg = 225 mg/m2 ?2.17 m2 Treatment Plan BSA from Recorded weight), IV Infusion, Q12H CHEMO, Administer over 180 Minutes, First dose on Sat07/17/22 at 1600, For [address] [facility] ondansetron (ZOFRAN (PF)) injection 8 mg 07-17 21:00: 00 07-18 20:59 :00 No [id number] 8mg 8 mg, Slow IV Push, Q12H CHEMO, First dose on Sat07/17/22 at 1500, For 2 doses
A dminister 30 minutes prior to each dose of cyclophosp hamide. Dose s of ondansetro n 16 mg and above need to be administer ed via IV piggyback. For Dose >=24mg ECG monitoring is advisable.
[facility] methotrexat e (PF) 6 mg in NaCl 0.9% (NS) 5 mL injection 07-17 17:00: 00 07-17 17:30 :00 No [id number] 6mg 6 mg, Intratheca l, ONCE, On Sat07/17/22 at 1100, For 1 dose
To be given via [facility]. Preservati ve-free methotrexa te and preservati ve-free NS.
[facility] ondansetron (ZOFRAN) tablet 8 mg 07-17 15:33: 12 Yes [id number] 8mg 8 mg, Oral, Q6HPRN, 1 dose, Starting on Sat07/17/22 at 0933, Until Discontinu ed, Routine, Nausea and Vomiting (N/V) [facility] atropine injection 0.25 mg 07-17 15:33: 12 07-18 15:32 :12 No [id number] .25mg 0.25 mg, IV Push, PRN, Starting on Sat07/17/22 at 0933, Until Sat07/18/22 at 0932, Routine, Stomach cramping, acute flushing. [facility] albuterol (PROVENTIL) 2.5 mg /3 mL (0.083 %) nebulizer solution 2.5 mg 07-17 15:33: 12 07-18 15:32 :12 No [id number] 2.5mg 2.5 mg, Inhalation , PRN - SEE INSTRUCTIO NS, Starting on Sat07/17/22 at 0933, Until Sat07/18/22 at 0932, Routine, Shortness of Breath, Wheezing, As needed for chemothera py reactions [facility] methylpredn isolone sod succ (SOLU-MEDRO L) injection 125 mg 07-17 15:33: 12 07-18 15:32 :12 No [id number] 125mg 125 mg, Slow IV Push, Administer over 3 Minutes, PRN - SEE INSTRUCTIO NS, Starting on Sat07/17/22 at 0933, Until Sat07/18/22 at 0932, Routine, As needed for chemothera py reactions [facility] EPINEPHrine (EPIPEN AUTO-INJECT OR) 0.3 mg/0.3 mL injection 0.3 mg 07-17 15:33: 12 07-18 15:32 :12 No [id number] .3mg 0.3 mg, Intramuscu lar, PRN - SEE INSTRUCTIO NS, Starting on Sat07/17/22 at 0933, Until Sat07/18/22 at 0932, Routine, As needed for chemothera py reactions [facility] diphenhydrA MINE (BENADRYL) injection 50 mg 07-17 15:33: 12 07-18 15:32 :12 No [id number] 50mg 50 mg, Slow IV Push, Administer over 2 Minutes, PRN - SEE INSTRUCTIO NS, Starting on Sat07/17/22 at 0933, Until Sat07/18/22 at 0932, Routine, As needed for chemothera py reactions< br>INDICAT ION: ANAPHYLAXI S [facility] pantoprazol e (PROTONIX) EC tablet 20 mg 07-17 15:00: 00 Yes 20mg 20 mg, Oral, DAILY, First dose on Sat07/17/22 at 0900, Until Discontinu ed [facility] foLIC acid (FOLATE) tablet 1 mg 07-17 15:00: 00 Yes 1mg 1 mg, Oral, DAILY, First dose on Sat07/17/22 at 0900, Until Discontinu ed, Routine [facility] febuxostat (ULORIC) tablet 40 mg 07-17 15:00: 00 Yes 40mg 40 mg, Oral, DAILY, First dose on Sat07/17/22 at 0900, Until Discontinu ed, Routine [facility] cholecalcif andrzej (vitamin D3) tablet 1,000 Units 07-17 15:00: 00 Yes 1000U 1,000 Units, Oral, DAILY, First dose on Sat07/17/22 at 0900, Until Discontinu ed, Routine [facility] levoFLOXaci n (LEVAQUIN) tablet 500 mg 07-17 15:00: 00 07-31 14:59 :00 No [id number] 500mg 500 mg, Oral, DAILY, 14 doses, First dose on Sat07/17/22 at 0900, Last dose on Sat07/30/22 at 0900, JOSEFINA
Re ason for Anti-Infec tive: Empiric Non-Surgic al Prophylaxi s
Durat ion of therapy: [address] [facility] fluconazole (DIFLUCAN) tablet 200 mg 07-17 15:00: 00 07-24 14:59 :00 No [id number] 200mg 200 mg, Oral, DAILY, 7 doses, First dose (after last modificati on) on Sat07/17/22 at 0900, Last dose on Sat07/23/22 at 0900, JOSEFINA
Re ason for Anti-Infec tive: Empiric Non-Surgic al Prophylaxi s
Durat ion of therapy: [address] [facility] KCL (KLOR-CON M20) tablet 20 mEq 07-17 05:15: 00 07-17 08:24 :00 No 20meq 20 mEq, Oral, ONCE, 1 dose, On Sat07/16/22 at 2315, Routine [facility] chlorhexidi ne (PERIDEX) 0.12 % mouthwash 15 mL 07-17 02:00: 00 Yes 15mL 15 mL, Oral (Swish And Spit Out), BID, First dose on Sat07/16/22 at 2000, Until Discontinu ed, Routine [facility] acyclovir (ZOVIRAX) tablet 400 mg 07-17 02:00: 00 Yes 400mg 400 mg, Oral, BID, First dose on Sat07/16/22 at 2000, Until Discontinu ed, JOSEFINA [facility] ondansetron 8 mg tablet 07-17 00:00: 00 Yes [id number] 4mg Take 0.5 tablets by mouth every 6 (six) hours as needed for Nausea and Vomiting (N/V). [facility] sulfamethox azole-trime thoprim (BACTRIM DS) 800-160 mg per tablet 1 tablet 07-16 23:45: 00 Yes 1{tbl} 1 tablet, Oral, QMON// SAT, First dose on Sat07/16/22 at 1745, Until Discontinu ed, JOSEFINA
Re ason for Anti-Infec tive: Empiric Non-Surgic al Prophylaxi s
Durat ion of therapy: [address] [facility] riTUXimab (RITUXAN) 800 mg in NaCl 0.9% (NS) 800 mL infusion 07-16 23:30: 00 07-17 03:30 :00 No [id number] 375mg/m 2 800 mg (rounded from 813.75 mg = 375 mg/m2 ?2.17 m2 Treatment Plan BSA from Recorded weight), IV Infusion, ONCE, Administer over 90 Minutes, On Sat07/16/22 at 1730, For 1 dose
In itial infusion: start rate at 50 mg/hr. If there is no reaction, increase rate by 50 mg/hr increments every 30 minutes to a maximum of 400 mg/hr.&nbs p;Subseque nt infusions: initiate rate at 100 mg/hr. If infusion is well-laura ated, rate may be escalated in 100 mg/hr increments at 30 minute intervals to a maximum of 400 mg/hr.&nbs p;For NHL, from Cycle 2 onward, may give over 90 minutes.&n bsp;Dilute d solution may be refrigerat ed for 24 hours.&nbs p;Complete administra tion within 8 hours from removal from refrigerat ion.
[facility] calcium carbonate (OSCAL-500) tablet 500 mg 07-16 23:00: 00 Yes 500mg 500 mg, Oral, BID MEALS, First dose on Sat07/16/22 at 1700, Until Discontinu ed, Routine [facility] dexamethaso ne (DECADRON) 40 mg in NaCl 0.9% (NS) 50 mL piggyback 07-16 23:00: 00 07-17 00:14 :00 No [id number] 40mg 40 mg, IV Piggyback, ONCE, 1 dose, On Sat07/16/22 at 1700, Administer over 20 Minutes, [address] [facility] acetaminoph en (TYLENOL) tablet 650 mg 07-16 22:30: 00 07-16 23:44 :00 No [id number] 650mg 650 mg, Oral, ONCE, 1 dose, On Sat07/16/22 at 1630, Routine [facility] diphenhydrA MINE (BENADRYL) injection 25 mg 07-16 20:30: 00 07-16 23:44 :00 No [id number] 25mg 25 mg, Slow IV Push, ONCE, 1 dose, On Sat07/16/22 at 1430, Routine [facility] atropine injection 0.25 mg 07-16 20:26: 50 Yes [id number] .25mg 0.25 mg, IV Push, PRN, Starting on Sat07/16/22 at 1426, Until Discontinu ed, Routine, Stomach cramping, acute flushing. [facility] albuterol (PROVENTIL) 2.5 mg /3 mL (0.083 %) nebulizer solution 2.5 mg 07-16 20:26: 50 Yes [id number] 2.5mg 2.5 mg, Inhalation , PRN - SEE INSTRUCTIO NS, Starting on Sat07/16/22 at 1426, Until Discontinu ed, Routine, Shortness of Breath, Wheezing, As needed for chemothera py reactions [facility] EPINEPHrine (EPIPEN AUTO-INJECT OR) 0.3 mg/0.3 mL injection 0.3 mg 07-16 20:26: 50 Yes [id number] .3mg 0.3 mg, Intramuscu lar, PRN - SEE INSTRUCTIO NS, Starting on Sat07/16/22 at 1426, Until Discontinu ed, Routine, As needed for chemothera py reactions [facility] diphenhydrA MINE (BENADRYL) injection 50 mg 07-16 20:26: 50 Yes [id number] 50mg 50 mg, Slow IV Push, Administer over 2 Minutes, PRN - SEE INSTRUCTIO NS, Starting on Sat07/16/22 at 1426, Until Discontinu ed, Routine, As needed for chemothera py reactions< br>INDICAT ION: ANAPHYLAXI S [facility] proCHLORper azine (COMPAZINE) tablet 10 mg 07-16 20:26: 49 Yes [id number] 10mg 10 mg, Oral, Q6HPRN, Starting on Sat07/16/22 at 1426, Until Discontinu ed, Routine, Nausea and Vomiting (N/V) [facility] heparin lock flush (HEPARIN LOCKFLUSH(P ORCINE)(PF) ) 100 unit/mL injection 500 Units 07-16 20:26: 49 Yes [id number] 500U 500 Units, IV Push, PRN, Starting on Sat07/16/22 at 1426, Until Discontinu ed, Routine [facility] heparin (porcine) injection 5,000 Units 07-16 20:00: 00 Yes 5000U 5,000 Units, Subcutaneo us, Q8H, First dose on Sat07/16/22 at 1400, Until Discontinu ed, Routine [facility] acetaminoph en (TYLENOL) tablet 650 mg 07-16 17:07: 34 Yes 650mg 650 mg, Oral, Q6HPRN, Starting on Sat07/16/22 at 1107, Until Discontinu ed, Routine, Pain (scale 1-3) [facility] fluconazole 200 mg tablet 07-03 00:00: 00 07-14 05:59 :00 No [id number] 200mg Take 1 tablet by mouth in the morning for [address] [facility] levoFLOXaci n 500 mg tablet 07-03 00:00: 00 07-14 05:59 :00 No [id number] 500mg Take 1 tablet by mouth every 24 (twenty-fo ur) hours for [address] [facility] fluconazole (DIFLUCAN) tablet 200 mg 07-02 15:00: 00 07-10 14:59 :00 No 200mg 200 mg, Oral, DAILY, 8 doses, First dose (after last modificati on) on Sat07/02/22 at 0900, Last dose on Sat07/09/22 at 0900, JOSEFINA
Re ason for Anti-Infec tive: Empiric Non-Surgic al Prophylaxi s
Du ration of therapy: 5 days
Sp ecific indication : neutropeni a [facility] filgrastim- sndz (ZARXIO) 480 mcg/0.8 mL injection syringe 480 mcg 07-02 15:00: 00 07-02 16:22 :00 No 480ug 480 mcg, Subcutaneo us, DAILY, 1 dose, First dose (after last reorder) on Sat07/02/22 at 0900, Routine
sales team member approving Restricted medication : FRANDY UMANA [facility] guaiFENesin 100 mg/5 mL solution 200 mg 07-02 14:00: 00 07-03 13:59 :00 No 200mg 200 mg, Oral, Q4H, 6 doses, First dose on Sat07/02/22 at 0800, Last dose on Sat07/03/22 at 0400, Routine [facility] acyclovir 400 mg tablet 07-02 00:00: 00 08-20 00:00 :00 No [id number] 400mg Take 1 tablet by mouth in the morning and 1 tablet in the evening. [facility] sulfamethox azole-trime thoprim 800-160 mg per tablet 07-02 00:00: 00 07-15 05:59 :00 No [id number] 1{tbl} Take 1 tablet by mouth every Saturday, and Saturday in the evening for [address] [facility] levoFLOXaci n (LEVAQUIN) tablet 500 mg 07-01 16:45: 00 07-06 16:44 :00 No 500mg 500 mg, Oral, Q24H ABX, 5 doses, First dose on Sat07/01/22 at 1045, Last dose on Aditi 07/05/22 at 1045, JOSEFINA
Re ason for Anti-Infec tive: Empiric Non-Surgic al Prophylaxi s
Durat ion of therapy: 5 days [facility] magnesium sulfate in water 2 gram/50 mL (4 %) infusion 2 g 07-01 14:00: 00 07-01 17:35 :00 No 2g 2 g, IV Piggyback, Administer over 60 Minutes, ONCE, 1 dose, On Sat07/01/22 at 0800, Routine [facility] Mi's magic mouthwash ((UTMB COMPOUND)) suspension 15 mL 06-30 17:39: 30 Yes 15mL 15 mL, Oral, Q6HPRN, Starting on 06/30/22 at 1139, Until Discontinu ed, Routine, mouth sores [facility] magnesium sulfate in water 2 gram/50 mL (4 %) infusion 2 g 06-29 13:00: 00 06-30 00:03 :00 No 2g 2 g, IV Piggyback, Administer over 60 Minutes, ONCE, 1 dose, On Sat06/29/22 at 0700, Routine [facility] riTUXimab (RITUXAN) 800 mg in NaCl 0.9% (NS) 800 mL infusion 06-27 18:30: 00 06-27 22:13 :00 No [id number] 375mg/m 2 800 mg (rounded from 813.75 mg = 375 mg/m2 ?2.17 m2 Treatment Plan BSA from Recorded weight), IV Infusion, ONCE, Administer over 90 Minutes, On Sat06/27/22 at 1230, For 1 dose
In itial infusion: start rate at 50 mg/hr. If there is no reaction, increase rate by 50 mg/hr increments every 30 minutes to a maximum of 400 mg/hr.&nbs p;Subseque nt infusions: initiate rate at 100 mg/hr. If infusion is well-laura ated, rate may be escalated in 100 mg/hr increments at 30 minute intervals to a maximum of 400 mg/hr.&nbs p;For NHL, from Cycle 2 onward, may give over 90 minutes.&n bsp;Dilute d solution may be refrigerat ed for 24 hours.&nbs p;Complete administra tion within 8 hours from removal from refrigerat ion.
[facility] acetaminoph en (TYLENOL) tablet 650 mg 06-27 16:15: 00 06-27 19:13 :00 No [id number] 650mg 650 mg, Oral, ONCE, 1 dose, On Sat06/27/22 at 1015, Routine [facility] diphenhydrA MINE (BENADRYL) tablet 25 mg 06-27 16:15: 00 06-27 19:13 :00 No [id number] 25mg 25 mg, Oral, ONCE, 1 dose, On Sat06/27/22 at 1015, Routine [facility] filgrastim- sndz (ZARXIO) 480 mcg/0.8 mL injection syringe 480 mcg 06-27 15:00: 00 07-01 14:04 :00 No 480ug 480 mcg, Subcutaneo us, DAILY, 5 doses, First dose (after last reorder) on Sat06/27/22 at 0900, Last dose on Sat07/01/22 at 0900, Routine
sales team member approving Restricted medication : FRANDY UMANA [facility] ceFEPIme (MAXIPIME) 2,000 mg in NaCl 0.9% (NS) 50 mL MINI-BAG 06-26 19:00: 00 07-01 15:42 :36 No 2000mg 2,000 mg, IV Piggyback, Q8H ABX, 15 doses, First dose (after last reorder) on Sat06/26/22 at 1300, Last dose on Sat07/01/22 at 0500, Administer over 4 Hours, 50 mL
Reas on for Anti-Infec tive: Empiric Therapy for Suspected Infection< br>Empiric Therapy Site: Blood
D uration of therapy: [address] [facility] vancomycin (VANCOCIN) 1,500 mg in NaCl 0.9% (NS) 500 mL VIAL-MATE IV piggyback 06-26 19:00: 00 06-29 00:29 :48 No 1500mg 1,500 mg, IV Piggyback, Q8H ABX, 15 doses, First dose on Sat06/26/22 at 1300, Last dose on Sat07/01/22 at 0500, Administer over 90 Minutes, 500 mL
Reas on for Anti-Infec tive: Empiric Therapy for Suspected Infection< br>Empiric Therapy Site: Other
O ther site: febrile neutropeni a, unknown source
Duration of therapy: [address] [facility] fluconazole (DIFLUCAN) tablet 200 mg 06-26 15:00: 00 07-01 15:38 :55 No 200mg 200 mg, Oral, DAILY, 14 doses, First dose on Sat06/26/22 at 0900, Last dose on Sat07/09/22 at 0900, JOSEFINA
Re ason for Anti-Infec tive: Empiric Non-Surgic al Prophylaxi s
Durat ion of therapy: 5 days
Sp ecific indication : neutropeni a [facility] levoFLOXaci n (LEVAQUIN) tablet 500 mg 06-26 12:18: 00 06-26 17:56 :22 No 500mg 500 mg, Oral, Q24H ABX, 14 doses, First dose on Sat06/26/22 at 0630, Last dose on Sat07/09/22 at 0630, JOSEFINA
Re ason for Anti-Infec tive: Empiric Non-Surgic al Prophylaxi s
Durat ion of therapy: 72 hours
S pecific indication : neutropeni a [facility] KCL (KLOR-CON M20) tablet 40 mEq 06-25 14:15: 00 06-25 14:08 :00 No 40meq 40 mEq, Oral, ONCE, 1 dose, On Sat06/25/22 at 0815, Routine [facility] potassium chloride in water (KCL) 20 mEq/100 mL RTU IVPB 20 mEq 06-25 14:00: 00 06-26 02:30 :00 No 20meq 20 mEq, IV Piggyback, ONCE, 1 dose, On Sat06/25/22 at 0800, [address] [facility] vancomycin (VANCOCIN) 1,500 mg in NaCl 0.9% (NS) 500 mL VIAL-MATE IV piggyback 06-24 00:07: 00 06-24 22:30 :00 No 15mg/kg 1,500 mg (rounded from 1,584 mg = 15 mg/kg ?105.6 kg), IV Piggyback, Q8H ABX, 3 doses, First dose (after last modificati on) on 06/23/22 at 1815, Last dose on Sat06/24/22 at 1015, Administer over 90 Minutes, 500 mL
Reas on for Anti-Infec tive: Empiric Therapy for Suspected Infection< br>Empiric Therapy Site: Blood
D uration of therapy: [address] [facility] sulfamethox azole-trime thoprim (BACTRIM DS) 800-160 mg per tablet 1 tablet 2021-06 23:00: 00 Yes 1{tbl} 1 tablet, Oral, QMON// SAT AT 1700, First dose on Sat06/22/22 at 1700, Until Discontinu ed, JOSEFINA
Re ason for Anti-Infec tive: Empiric Non-Surgic al Prophylaxi s
Durat ion of therapy: 5 days
Sp ecific indication : neutropeni a, chemothera py [facility] filgrastim- sndz (ZARXIO) 480 mcg/0.8 mL injection syringe 480 mcg 2021-06 15:00: 00 06-26 14:01 :00 No 480ug 480 mcg, Subcutaneo us, DAILY, 5 doses, First dose on Sat06/22/22 at 0900, Last dose on Sat06/26/22 at 0900, Routine
sales team member approving Restricted medication : FRANDY UMANA [facility] levoFLOXaci n 500 mg tablet 2021-06 00:00: 00 07-02 00:00 :00 No [id number] 500mg Take 1 tablet by mouth every 24 (twenty-fo ur) hours for [address] [facility] fluconazole 200 mg tablet 2021-06 00:00: 00 07-02 00:00 :00 No [id number] 200mg Take 1 tablet by mouth in the morning for [address] [facility] filgrastim- sndz 480 mcg/0.8 mL injection syringe 2021-06 00:00: 00 06-22 00:00 :00 No [id number] 480ug inject 0.8 mL under the skin in the morning for [address] [facility] codeine tablet 30 mg 2021-06 07:15: 00 Yes 30mg 30 mg, Oral, Q4HPRN, Starting on Sat06/21/22 at 0115, Until Discontinu ed, Routine, Pain (scale 7-10) [facility] ceFEPIme (MAXIPIME) 2,000 mg in NaCl 0.9% (NS) 50 mL MINI-BAG 2021-06 07:15: 00 06-26 07:14 :00 No 2000mg 2,000 mg, IV Piggyback, Q8H ABX, 15 doses, First dose on Sat06/21/22 at 0115, Last dose on Sat06/25/22 at 1715, Administer over 4 Hours, 50 mL
Reas on for Anti-Infec tive: Empiric Therapy for Suspected Infection< br>Empiric Therapy Site: Blood
D uration of therapy: [address] [facility] vancomycin (VANCOCIN) 1,500 mg in NaCl 0.9% (NS) 500 mL VIAL-MATE IV piggyback 2021-06 22:45: 00 06-24 00:08 :16 No 15mg/kg 1,500 mg (rounded from 1,584 mg = 15 mg/kg ?105.6 kg), IV Piggyback, Q12H ABX, 10 doses, First dose on Sat06/20/22 at 1645, Last dose on Sat06/25/22 at 0445, Administer over 90 Minutes, 500 mL
R toña for Anti-Infec tive: Empiric Therapy for Suspected Infection< br>Empiric Therapy Site: Blood
D uration of therapy: [address] [facility] ceFEPIme (MAXIPIME) 2,000 mg in NaCl 0.9% (NS) 50 mL MINI-BAG 2021-06 22:43: 00 06-20 23:43 :00 No 2000mg 2,000 mg, IV Piggyback, ONCE, 1 dose, On Sat06/20/22 at 1645, Administer over 30 Minutes, 50 mL
Reas on for Anti-Infec tive: Empiric Therapy for Suspected Infection< br>Empiric Therapy Site: Blood
D uration of therapy: [address] [facility] codeine tablet 30 mg 2021-06 22:31: 50 06-21 07:15 :11 No 30mg 30 mg, Oral, Q6HPRN, Starting on Sat06/20/22 at 1631, Until Aditi 06/21/22 at 0115, Routine, Pain (scale 7-10) [facility] cytarabine (PF) 50 mg in NaCl 0.9% (NS) 5 mL injection 2021-06 18:00: 00 06-20 21:00 :00 No [id number] 50mg 50 mg, Intratheca l, ONCE, On Sat06/20/22 at 1200, For 1 dose
Fo r Intratheca l Administra tion Only.
[facility] ondansetron (ZOFRAN) tablet 8 mg 2021-06 17:04: 46 Yes [id number] 8mg 8 mg, Oral, Q6HPRN, 1 dose, Starting on Sat06/20/22 at 1104, Until Discontinu ed, Routine, Nausea and Vomiting (N/V) [facility] KCL (KLOR-CON M20) tablet 40 mEq 2021-06 14:45: 00 06-20 14:56 :00 No 40meq 40 mEq, Oral, ONCE, 1 dose, On Sat06/20/22 at 0845, Routine [facility] cytarabine (PF) 5,208 mg in NaCl 0.9% (NS) 500 mL infusion 2021-06 23:30: 00 06-20 13:40 :00 No [id number] 2400mg/ m2 5,208 mg (2,400 mg/m2 ?2.17 m2 Treatment Plan BSA from Recorded weight), IV Infusion, Q12H CHEMO, Administer over 2 Hours, First dose on Sat06/19/22 at 1730, For 2 doses
D o not refrigerat e.
[facility] ondansetron (ZOFRAN (PF)) injection 8 mg 2021-06 23:00: 00 06-20 10:48 :00 No [id number] 8mg 8 mg, Slow IV Push, Q12H CHEMO, First dose on Sat06/19/22 at 1700, For 2 doses
A dminister 30 minutes prior to each dose of cyclophosp hamide. Dose s of ondansetro n 16 mg and above need to be administer ed via IV piggyback. For Dose >=24mg ECG monitoring is advisable.
[facility] methotrexat e (PF) 6 mg in NaCl 0.9% (NS) 5 mL injection 2021-06 20:00: 00 06-19 23:04 :00 No [id number] 6mg 6 mg, Intratheca l, ONCE, On Sat06/19/22 at 1400, For 1 dose
To be given via Ommaya Royal. Preservati ve-free methotrexa te and preservati ve-free NS.
[facility] ondansetron (ZOFRAN) tablet 8 mg 2021-06 19:41: 37 Yes [id number] 8mg 8 mg, Oral, Q6HPRN, 1 dose, Starting on Sat06/19/22 at 1341, Until Discontinu ed, Routine, Nausea and Vomiting (N/V) [facility] benzocaine- menthoL (CEPACOL SORE THROAT (DANIEL-MEN)) lozenge 1 Lozenge 2021-06 14:25: 16 Yes 1{lozen ge} 1 Lozenge, Oral, Q4HPRN, Starting on Sat06/19/22 at 0825, Until Discontinu ed, Routine, Sore throat [facility] sodium bicarbonate 150 mEq in D5W 0.45% NaCl (1/2NS) 1,000 mL IV infusion 2021-06 19:00: 00 06-21 05:19 :10 No 150meq IV Infusion, at 150 mL/hr, 150 mEq, CONTINUOUS , Starting on Sat06/18/22 at 1300, Until Sat06/20/22 at 2319, Routine [facility] cytarabine (PF) 5,208 mg in NaCl 0.9% (NS) 500 mL infusion 2021-06 16:30: 00 06-19 16:16 :00 No [id number] 2400mg/ m2 5,208 mg (2,400 mg/m2 ?2.17 m2 Treatment Plan BSA from Recorded weight), IV Infusion, Q12H CHEMO, Administer over 2 Hours, First dose on Sat06/18/22 at 1030, For 2 doses
D o not refrigerat e.
[facility] leucovorin 15 mg in D5W 50 mL infusion 2021-06 16:00: 00 06-21 05:19 :10 No [id number] 15mg 15 mg, IV Piggyback, Q6H, First dose on Sat06/18/22 at 1000, Until Discontinu ed, Administer over 15 Minutes, [address] [facility] methylPREDN ISolone sodium succinate (SOLU-MEDRO L) 50 mg in NaCl 0.9% (NS) piggyback 2021-06 16:00: 00 06-19 12:46 :00 No [id number] 50mg 50 mg, IV Piggyback, Q12H, 2 doses, First dose on Sat06/18/22 at 1000, Last dose on Sat06/18/22 at 1999, Administer over 15 Minutes, [address] [facility] ondansetron (ZOFRAN (PF)) injection 8 mg 2021-06 16:00: 00 06-19 12:27 :00 No [id number] 8mg 8 mg, Slow IV Push, Q12H CHEMO, First dose on Sat06/18/22 at 1000, For 2 doses
A dminister 30 minutes prior to each dose of cyclophosp hamide. Dose s of ondansetro n 16 mg and above need to be administer ed via IV piggyback. For Dose >=24mg ECG monitoring is advisable.
[facility] famotidine (PEPCID AC) tablet 20 mg 2021-06 02:00: 00 Yes 20mg 20 mg, Oral, BID, First dose on Sat06/17/22 at 2000, Until Discontinu ed, Routine [facility] methotrexat e (PF) 1,736 mg in NaCl 0.9% (NS) 1,000 mL infusion 2021-06 00:00: 00 06-18 01:00 :00 No [id number] 800mg/m 2 1,736 mg (800 mg/m2 ?2.17 m2 Treatment Plan BSA from Recorded weight), IV Infusion, ONCE, Administer over 22 Hours, On 06/16/22 at 1800, For [address] after the completion of methotrexa te bolus.
[facility] ondansetron (ZOFRAN (PF)) injection 8 mg 2021-06 23:00: 00 06-17 08:28 :00 No [id number] 8mg 8 mg, Slow IV Push, Q12H CHEMO, First dose on 06/16/22 at 1700, For 2 doses
D oses of ondansetro n 16 mg and above need to be administer ed via IV piggyback. For Dose >=24mg ECG monitoring is advisable. Admi nister first dose 30 minutes prior to chemothera py.
[facility] prednisoLON E acetate (PRED-FORTE ) 1 % ophthalmic suspension drops 1 Drop 2021-06 22:00: 00 06-23 21:59 :00 No [id number] 1[drp] 1 Drop, Both Eyes, QID, 28 doses, First dose on 06/16/22 at 1600, Last dose on 06/23/22 at 1200, Routine [facility] methotrexat e (PF) 434 mg in NaCl 0.9% (NS) 500 mL infusion 2021-06 22:00: 00 06-17 02:45 :00 No [id number] 200mg/m 2 434 mg (200 mg/m2 ?2.17 m2 Treatment Plan BSA from Recorded weight), IV Infusion, ONCE, Administer over 120 Minutes, On 06/16/22 at 1600, For [address] [facility] methylPREDN ISolone sodium succinate (SOLU-MEDRO L) 50 mg in NaCl 0.9% (NS) piggyback 2021-06 21:00: 00 06-17 08:43 :00 No [id number] 50mg 50 mg, IV Piggyback, Q12H, 2 doses, First dose on 06/16/22 at 1500, Last dose on 06/16/22 at 2000, Administer over 15 Minutes, [address] [facility] sodium bicarbonate 100 mEq in D5W 1,000 mL IV Solution 2021-06 19:30: 00 06-18 18:46 :18 No [id number] IV Infusion, CONTINUOUS , Starting on 06/16/22 at 1330, Until 06/18/22 at 1246, 1,000 mL, at 75 mL/hr [facility] sodium bicarbonate 8.4 % (1 mEq/mL) injection 50 mEq 2021-06 19:23: 06 06-21 12:53 :26 No [id number] 50meq 50 mEq, Slow IV Push, Q4HPRN, Starting on 06/16/22 at 1323, Until Aditi 06/21/22 at 0653, Routine, urine pH less than 7 [facility] iopamidol (ISOVUE 370-500 mL) injection 80 mL 2021-06 19:01: 00 06-16 18:55 :00 No [id number] 80mL 80 mL, Intravenou s, ONCE, 1 dose, On 06/16/22 at 1315, Routine [facility] foLIC acid (FOLATE) tablet 1 mg 2021-06 15:00: 00 Yes 1mg 1 mg, Oral, DAILY, First dose on 06/16/22 at 0900, Until Discontinu ed, Routine [facility] cholecalcif andrzej (vitamin D3) tablet 1,000 Units 2021-06 15:00: 00 Yes 1000U 1,000 Units, Oral, DAILY, First dose on 06/16/22 at 0900, Until Discontinu ed, Routine [facility] fluconazole (DIFLUCAN) tablet 100 mg 2021-06 15:00: 00 06-22 16:07 :00 No [id number] 100mg 100 mg, Oral, DAILY, 7 doses, First dose on Sat06/16/22 at 0900, Last dose on Sat06/22/22 at 0900, JOSEFINA
Re ason for Anti-Infec tive: Empiric Non-Surgic al Prophylaxi s
Durat ion of therapy: [address] [facility] levoFLOXaci n (LEVAQUIN) tablet 500 mg 2021-06 15:00: 00 06-20 22:53 :20 No [id number] 500mg 500 mg, Oral, DAILY, 14 doses, First dose on Sat06/16/22 at 0900, Last dose on Sat06/29/22 at 0900, JOSEFINA
Re ason for Anti-Infec tive: Empiric Non-Surgic al Prophylaxi s
Durat ion of therapy: [address] [facility] acyclovir (ZOVIRAX) tablet 400 mg 2021-06 14:00: 00 Yes 400mg 400 mg, Oral, BID, First dose on 06/16/22 at 0800, Until Discontinu ed, Routine [facility] acyclovir (ZOVIRAX) tablet 400 mg 2021-06 02:00: 00 06-16 19:04 :39 No [id number] 400mg 400 mg, Oral, BID, First dose on Sat06/15/22 at 2000, Until Discontinu ed, JOSEFINA [facility] sodium bicarbonate 100 mEq in D5W 0.45% NaCl (1/2NS) 1,000 mL IV infusion 2021-06 01:45: 00 06-18 18:46 :18 No 100meq IV Infusion, at 75 mL/hr, 100 mEq, CONTINUOUS , Starting on Sat06/15/22 at 1945, Until Sat06/18/22 at 1246, Routine [facility] calcium carbonate (OSCAL-500) tablet 500 mg 2021-06 23:00: 00 Yes 500mg 500 mg, Oral, BID MEALS, First dose on Sat06/15/22 at 1700, Until Discontinu ed, Routine [facility] enoxaparin (LOVENOX) injection 40 mg 2021-06 23:00: 00 06-26 17:19 :20 No 40mg 40 mg, Subcutaneo us, DAILY, First dose on Sat06/15/22 at 1700, Until Discontinu ed, Routine [facility] rituximab-p vvr (RUXIENCE) 800 mg in NaCl 0.9% (NS) 800 mL infusion 2021-06 21:00: 00 06-15 23:44 :00 No [id number] 375mg/m 2 800 mg (rounded from 813.75 mg = 375 mg/m2 ?2.17 m2 Treatment Plan BSA from Recorded weight), IV Infusion, ONCE, Administer over 90 Minutes, On Sat06/15/22 at 1500, For 1 dose
In itial infusion: start rate at 50 mg/hr. If there is no reaction, increase rate by 50 mg/hr increments every 30 minutes to a maximum of 400 mg/hr.&nbs p;Subseque nt infusions: initiate rate at 100 mg/hr. If infusion is well-laura ated, rate may be escalated in 100 mg/hr increments at 30 minute intervals to a maximum of 400 mg/hr.&nbs p;For NHL, from Cycle 2 onward, may give over 90 minutes.&n bsp;Dilute d solution may be refrigerat ed for 24 hours.&nbs p;Complete administra tion within 8 hours from removal from refrigerat ion.
[facility] methylPREDN ISolone sodium succinate (SOLU-MEDRO L) 50 mg in NaCl 0.9% (NS) piggyback 2021-06 19:45: 00 06-16 10:24 :00 No [id number] 50mg 50 mg, IV Piggyback, Q12H, 2 doses, First dose on Sat06/15/22 at 1345, Last dose on Sat06/15/22 at 2000, Administer over 15 Minutes, [address] [facility] acetaminoph en (TYLENOL) tablet 650 mg 2021-06 19:45: 00 06-15 21:44 :00 No [id number] 650mg 650 mg, Oral, ONCE, 1 dose, On Sat06/15/22 at 1345, Routine [facility] diphenhydrA MINE (BENADRYL) injection 25 mg 2021-06 19:45: 00 06-15 21:43 :00 No [id number] 25mg 25 mg, Slow IV Push, ONCE, 1 dose, On Sat06/15/22 at 1345, Routine [facility] methylpredn isolone sod succ (SOLU-MEDRO L) injection 125 mg 2021-06 19:37: 45 Yes [id number] 125mg 125 mg, Slow IV Push, Administer over 3 Minutes, PRN - SEE INSTRUCTIO NS, Starting on Sat06/15/22 at 1337, Until Discontinu ed, Routine, As needed for chemothera py reactions [facility] EPINEPHrine (EPIPEN AUTO-INJECT OR) 0.3 mg/0.3 mL injection 0.3 mg 2021-06 19:37: 45 Yes [id number] .3mg 0.3 mg, Intramuscu lar, PRN - SEE INSTRUCTIO NS, Starting on Sat06/15/22 at 1337, Until Discontinu ed, Routine, As needed for chemothera py reactions [facility] diphenhydrA MINE (BENADRYL) injection 50 mg 2021-06 19:37: 45 Yes [id number] 50mg 50 mg, Slow IV Push, Administer over 2 Minutes, PRN - SEE INSTRUCTIO NS, Starting on Sat06/15/22 at 1337, Until Discontinu ed, Routine, As needed for chemothera py reactions< br>INDICAT ION: ANAPHYLAXI S [facility] proCHLORper azine (COMPAZINE) tablet 10 mg 2021-06 19:37: 45 Yes [id number] 10mg 10 mg, Oral, Q6HPRN, Starting on Sat06/15/22 at 1337, Until Discontinu ed, Routine, Nausea and Vomiting (N/V) [facility] heparin lock flush (HEPARIN LOCKFLUSH(P ORCINE)(PF) ) 100 unit/mL injection 500 Units 2021-06 19:37: 45 Yes [id number] 500U 500 Units, IV Push, PRN, Starting on Sat06/15/22 at 1337, Until Discontinu ed, Routine [facility] pantoprazol e (PROTONIX) EC tablet 20 mg 2021-06 15:45: 00 06-16 19:04 :39 No 20mg 20 mg, Oral, DAILY, First dose on Sat06/15/22 at 0945, Until Discontinu ed [facility] acetaminoph en (TYLENOL) tablet 650 mg 2021-06 15:36: 12 06-20 17:57 :04 No 650mg 650 mg, Oral, Q6HPRN, Starting on Sat06/15/22 at 0936, Until Sat06/20/22 at 1157, Routine, Pain (scale 1-3) [facility] omeprazole (PRILOSEC OTC) 20 mg tablet 2021-06 00:00: 00 Yes [id number] 20mg Take 1 tablet by mouth in the morning. [facility] riTUXimab (RITUXAN) 800 mg in NaCl 0.9% (NS) 800 mL infusion 2021-06 16:00: 00 06-05 17:45 :00 No [id number] 375mg/m 2 800 mg (rounded from 813.75 mg = 375 mg/m2 ?2.17 m2 Treatment Plan BSA from Recorded weight), IV Infusion, ONCE, Administer over 90 Minutes, On Sat06/05/22 at 1000, For 1 dose
In itial infusion: start rate at 50 mg/hr. If there is no reaction, increase rate by 50 mg/hr increments every 30 minutes to a maximum of 400 mg/hr.&nbs p;Subseque nt infusions: initiate rate at 100 mg/hr. If infusion is well-laura ated, rate may be escalated in 100 mg/hr increments at 30 minute intervals to a maximum of 400 mg/hr.&nbs p;For NHL, from Cycle 2 onward, may give over 90 minutes.&n bsp;Dilute d solution may be refrigerat ed for 24 hours.&nbs p;Complete administra tion within 8 hours from removal from refrigerat ion.
[facility] vinCRIStine (ONCOVIN) 2 mg in NaCl 0.9% (NS) 50 mL infusion 2021-06 15:30: 00 06-05 16:02 :00 No [id number] 2mg 2 mg, IV Infusion, ONCE, Administer over 15 Minutes, On Sat06/05/22 at 0930, For 1 dose
Av oid extravasat ion.
[facility] diphenhydrA MINE (BENADRYL) tablet 25 mg 2021-06 15:30: 00 06-05 15:45 :00 No [id number] 25mg 25 mg, Oral, ONCE, 1 dose, On Sat06/05/22 at 0930, Routine [facility] acetaminoph en (TYLENOL) tablet 650 mg 2021-06 15:30: 00 06-05 15:45 :00 No [id number] 650mg 650 mg, Oral, ONCE, 1 dose, On Sat06/05/22 at 0930, Routine [facility] heparin lock flush (HEPARIN LOCKFLUSH(P ORCINE)(PF) ) 100 unit/mL injection 500 Units 2021-06 15:27: 29 06-06 15:26 :29 No [id number] 500U 500 Units, IV Push, PRN, Starting on Sat06/05/22 at 0927, Until Sat06/06/22 at 0926, Routine [facility] dexAMETHaso ne 4 mg tablet 2021-06 00:00: 00 06-09 05:59 :00 No [id number] 40mg Take 10 tablets by mouth in the morning for [address] [facility] dexAMETHaso ne 20 mg Tab 2021-06 00:00: 00 05-31 00:00 :00 No [id number] 40mg Take 40 mg by mouth daily for [address] [facility] pegfilgrast im-bmez (ZIEXTENZO) syringe 6 mg 2021-06 21:45: 00 05-30 21:31 :00 No [id number] 6mg 6 mg, Subcutaneo us, ONCE, 1 dose, On Sat05/30/22 at 1545, Routine
sales team member approving Restricted medication : SHIRA WOODWARD RP [facility] levoFLOXaci n 500 mg tablet 2021-06 00:00: 00 06-14 05:59 :00 No [id number] 500mg Take 1 tablet by mouth in the morning for [address] [facility] sulfamethox azole-trime thoprim 800-160 mg per tablet 2021-06 00:00: 00 06-14 05:59 :00 No [id number] 1{tbl} Take 1 tablet by mouth every Saturday, Saturday and Saturday for [address] [facility] dexamethaso ne (DECADRON) 40 mg in NaCl 0.9% (NS) 50 mL piggyback 2021-06 19:15: 00 05-29 19:07 :00 No 40mg 40 mg, Intravenou s, ONCE, 1 dose, On Sat05/29/22 at 1315, Administer over 20 Minutes, [address] [facility] DOXOrubicin (ADRIAMYCIN ) 108.5 mg in Total Volume 54.25 mL injection 2021-06 17:30: 00 05-29 20:13 :00 No [id number] 50mg/m2 108.5 mg (50 mg/m2 ?2.17 m2 Treatment Plan BSA from Recorded weight), IV Piggyback, ONCE, Administer over 15 Minutes, On Sat05/29/22 at 1130, For [address] [facility] ondansetron (ZOFRAN (PF)) injection 8 mg 2021-06 17:00: 00 05-30 16:59 :00 No [id number] 8mg 8 mg, Slow IV Push, Q12H CHEMO, First dose on Sat05/29/22 at 1100, For 2 doses
A dminister 30 minutes prior to each dose of cyclophosp hamide. Dose s of ondansetro n 16 mg and above need to be administer ed via IV piggyback. For Dose >=24mg ECG monitoring is advisable.
[facility] vinCRIStine (ONCOVIN) 2 mg in NaCl 0.9% (NS) 50 mL infusion 2021-06 17:00: 00 05-29 19:54 :00 No [id number] 2mg 2 mg, IV Infusion, ONCE, Administer over 15 Minutes, On Sat05/29/22 at 1100, For 1 dose
Av oid extravasat ion.
[facility] ondansetron (ZOFRAN) tablet 8 mg 2021-06 13:30: 28 Yes [id number] 8mg 8 mg, Oral, Q6HPRN, 1 dose, Starting on Sat05/29/22 at 0730, Until Discontinu ed, Routine, Nausea and Vomiting (N/V) [facility] atropine injection 0.25 mg 2021-06 13:30: 28 05-30 13:29 :28 No [id number] .25mg 0.25 mg, IV Push, PRN, Starting on Sat05/29/22 at 0730, Until Sat05/30/22 at 0729, Routine, Stomach cramping, acute flushing. [facility] albuterol (PROVENTIL) 2.5 mg /3 mL (0.083 %) nebulizer solution 2.5 mg 2021-06 13:30: 28 05-30 13:29 :28 No [id number] 2.5mg 2.5 mg, Inhalation , PRN - SEE INSTRUCTIO NS, Starting on Sat05/29/22 at 0730, Until Sat05/30/22 at 07, Routine, Shortness of Breath, Wheezing, As needed for chemothera py reactions [facility] methylpredn isolone sod succ (SOLU-MEDRO L) injection 125 mg 2021-06 13:30: 28 05-30 13:29 :28 No [id number] 125mg 125 mg, Slow IV Push, Administer over 3 Minutes, PRN - SEE INSTRUCTIO NS, Starting on Sat05/29/22 at 0730, Until Sat05/30/22 at 07, Routine, As needed for chemothera py reactions [facility] EPINEPHrine (EPIPEN AUTO-INJECT OR) 0.3 mg/0.3 mL injection 0.3 mg 2021-06 13:30: 28 05-30 13:29 :28 No [id number] .3mg 0.3 mg, Intramuscu lar, PRN - SEE INSTRUCTIO NS, Starting on Sat05/29/22 at 0730, Until Sat05/30/22 at 0729, Routine, As needed for chemothera py reactions [facility] diphenhydrA MINE (BENADRYL) injection 50 mg 2021-06 13:30: 28 05-30 13:29 :28 No [id number] 50mg 50 mg, Slow IV Push, Administer over 2 Minutes, PRN - SEE INSTRUCTIO NS, Starting on Sat05/29/22 at 0730, Until Sat05/30/22 at 0729, Routine, As needed for chemothera py reactions< br>INDICAT ION: ANAPHYLAXI S [facility] calcium carbonate 500 mg calcium (1,250 mg) tablet 2021-06 00:00: 00 Yes [id number] 500mg Take 1 tablet by mouth in the morning and 1 tablet in the evening. Take with meals. [facility] cholecalcif andrzej, vitamin D3, 25 mcg (1,000 unit) tablet 2021-06 00:00: 00 Yes [id number] 1000U Take 1 tablet by mouth in the morning. [facility] foLIC acid 1 mg tablet 2021-06 00:00: 00 Yes [id number] 1mg Take 1 tablet by mouth in the morning. [facility] proCHLORper azine (COMPAZINE) 10 mg tablet 2021-06 00:00: 00 12-26 00:00 :00 No [id number] 10mg Take 1 tablet by mouth every 6 (six) hours as needed for N/V unresponsi ve to Ondansetro n. [facility] ondansetron 8 mg tablet 2021-06 00:00: 00 07-17 00:00 :00 No [id number] 8mg Take 1 tablet by mouth every 6 (six) hours as needed for Nausea and Vomiting (N/V). [facility] acyclovir 400 mg tablet 2021-06 00:00: 00 07-02 00:00 :00 No [id number] 400mg Take 1 tablet by mouth in the morning and 1 tablet in the evening. [facility] fluconazole 100 mg tablet 2021-06 00:00: 00 06-13 05:59 :00 No [id number] 100mg Take 1 tablet by mouth in the morning for [address] [facility] cyclophosph amide 652 mg in NaCl 0.9% (NS) 100 mL IV infusion 2021-06 21:00: 00 05-29 11:25 :00 No [id number] 300mg/m 2 652 mg (rounded from 651 mg = 300 mg/m2 ?2.17 m2 Treatment Plan BSA from Recorded weight), IV Infusion, Q12H CHEMO, Administer over 180 Minutes, First dose on Sat05/28/22 at 1500, For [address] [facility] mesna (MESNEX) 1,302 mg in NaCl 0.9% (NS) 1,000 mL infusion 2021-06 20:30: 00 05-29 19:53 :00 No [id number] 600mg/m 2 1,302 mg (600 mg/m2 ?2.17 m2 Treatment Plan BSA from Recorded weight), IV Infusion, ONCE, Administer over 24 Hours, On Sat05/28/22 at 1430, For [address] [facility] with cyclophosp hamide.
[facility] ondansetron (ZOFRAN (PF)) injection 8 mg 2021-06 20:00: 00 05-29 07:59 :00 No [id number] 8mg 8 mg, Slow IV Push, Q12H CHEMO, First dose on Sat05/28/22 at 1400, For 2 doses
A dminister 30 minutes prior to each dose of cyclophosp hamide. Dose s of ondansetro n 16 mg and above need to be administer ed via IV piggyback. For Dose >=24mg ECG monitoring is advisable.
[facility] dexamethaso ne (DECADRON) 40 mg in NaCl 0.9% (NS) 50 mL piggyback 2021-06 20:00: 00 05-28 21:15 :00 No [id number] 40mg 40 mg, IV Piggyback, ONCE, 1 dose, On Sat05/28/22 at 1400, Administer over 20 Minutes, 50 mL [facility] methotrexat e (PF) 6 mg in NaCl 0.9% (NS) 5 mL injection 2021-06 19:30: 00 05-28 19:30 :00 No [id number] 6mg 6 mg, Intratheca l, ONCE, On Sat05/28/22 at 1330, For 1 dose
To be given via Ommaya Royal. Preservati ve-free methotrexa te and preservati ve-free NS.
[facility] ondansetron (ZOFRAN) tablet 8 mg 2021-06 18:28: 37 Yes [id number] 8mg 8 mg, Oral, Q6HPRN, 1 dose, Starting on Sat05/28/22 at 1228, Until Discontinu ed, Routine, Nausea and Vomiting (N/V) [facility] sulfamethox azole-trime thoprim (BACTRIM DS) 800-160 mg per tablet 1 tablet 2021-06 15:00: 00 Yes 1{tbl} 1 tablet, Oral, QMON// SAT, First dose on Sat05/28/22 at 0900, Until Discontinu ed, JOSEFINA
Re ason for Anti-Infec tive: Empiric Therapy for Suspected Infection< br>Empiric Therapy Site: Blood
D uration of therapy: [address] [facility] cyclophosph amide 652 mg in NaCl 0.9% (NS) 100 mL IV infusion 2021-06 21:00: 00 05-28 11:31 :00 No [id number] 300mg/m 2 652 mg (rounded from 651 mg = 300 mg/m2 ?2.17 m2 Treatment Plan BSA from Recorded weight), IV Infusion, Q12H CHEMO, Administer over 180 Minutes, First dose on Sat05/27/22 at 1500, For [address] [facility] mesna (MESNEX) 1,302 mg in NaCl 0.9% (NS) 1,000 mL infusion 2021-06 20:30: 00 05-28 20:51 :00 No [id number] 600mg/m 2 1,302 mg (600 mg/m2 ?2.17 m2 Treatment Plan BSA from Recorded weight), IV Infusion, ONCE, Administer over 24 Hours, On 05/27/22 at 1430, For [address] [facility] with cyclophosp hamide[address]
[facility] ondansetron (ZOFRAN (PF)) injection 8 mg 2021-06 20:00: 00 05-28 08:00 :00 No [id number] 8mg 8 mg, Slow IV Push, Q12H CHEMO, First dose on Sat05/27/22 at 1400, For 2 doses
A dminister 30 minutes prior to each dose of cyclophosp hamide. Dose s of ondansetro n 16 mg and above need to be administer ed via IV piggyback. For Dose >=24mg ECG monitoring is advisable.
[facility] dexamethaso ne (DECADRON) 40 mg in NaCl 0.9% (NS) 50 mL piggyback 2021-06 20:00: 00 05-27 21:12 :00 No [id number] 40mg 40 mg, IV Piggyback, ONCE, 1 dose, On 05/27/22 at 1400, Administer over 20 Minutes, [address] [facility] phosphorus (K PHOS NEUTRAL) tablet 1 tablet 2021-06 19:15: 00 05-27 18:50 :00 No 250mg 1 tablet (250 mg), Oral, ONCE NOW, 1 dose, On Sat05/27/22 at 1315, Routine [facility] Sliding Scale Insulin - Lispro (HumaLOG) + Fsbg Testing 2021-06 18:00: 00 Yes Subcutaneo us, TID MEALS+HS, First dose on 05/27/22 at 1200, Until Discontinu ed, Routine [facility] dextrose 10% (D10W) bolus infusion 250 mL 2021-06 14:37: 25 Yes 250mL 250 mL, IV Infusion, PRN - SEE INSTRUCTIO NS, Administer over 60 Minutes, Other, If blood glucose is < or = 70 mg/dL and patient is unable to swallow or has mental status changes, Starting on 05/27/22 at 0837
If blood glucose is < or = 70 mg/dL and patient is unable to swallow or has mental status changes (Give glucagon order if patient needs fluid restrictio n): IF IV access available: Dextrose 10%. 1. 125 mL (? bag) of D10W IV infusion - equivalent to 12.5 g dextrose 2. Blood glucose - draw blood glucose 15 minutes after D10W Administra tion. 3. If blood glucose is < 80 mg/dL, repeat.
[facility] glucagon (GLUCAGEN DIAGNOSTIC KIT) injection 1 mg 2021-06 14:37: 21 Yes 1mg 1 mg, Intramuscu lar, PRN, Starting on 05/27/22 at 0837, Until Discontinu ed, JOSEFINA, Blood Glucose < or = 70 mg/dL and patient is unable to swallow or has mental changes. [facility] cyclophosph amide 652 mg in NaCl 0.9% (NS) 100 mL IV infusion 2021-06 18:00: 00 05-27 12:31 :00 No [id number] 300mg/m 2 652 mg (rounded from 651 mg = 300 mg/m2 ?2.17 m2 Treatment Plan BSA from Recorded weight), IV Infusion, Q12H CHEMO, Administer over 180 Minutes, First dose on 05/26/22 at 1200, For [address] [facility] mesna (MESNEX) 1,302 mg in NaCl 0.9% (NS) 1,000 mL infusion 2021-06 17:30: 00 05-27 20:50 :00 No [id number] 600mg/m 2 1,302 mg (600 mg/m2 ?2.17 m2 Treatment Plan BSA from Recorded weight), IV Infusion, ONCE, Administer over 24 Hours, On 05/26/22 at 1130, For [address] with cyclophosp hamide[address]
[facility] ondansetron (ZOFRAN (PF)) injection 8 mg 2021-06 17:00: 00 05-27 09:01 :00 No [id number] 8mg 8 mg, Slow IV Push, Q12H CHEMO, First dose on 05/26/22 at 1100, For 2 doses
A dminister 30 minutes prior to each dose of cyclophosp hamide. Dose s of ondansetro n 16 mg and above need to be administer ed via IV piggyback. For Dose >=24mg ECG monitoring is advisable.
[facility] dexamethaso ne (DECADRON) 40 mg in NaCl 0.9% (NS) 50 mL piggyback 2021-06 17:00: 00 05-26 22:13 :00 No [id number] 40mg 40 mg, IV Piggyback, ONCE, 1 dose, On Sat05/26/22 at 1100, Administer over 20 Minutes, [address] [facility] foLIC acid (FOLATE) tablet 1 mg 2021-06 15:00: 00 Yes 1mg 1 mg, Oral, DAILY, First dose on Sat05/26/22 at 0900, Until Discontinu ed, Routine [facility] cholecalcif andrzej (vitamin D3) tablet 1,000 Units 2021-06 15:00: 00 Yes 1000U 1,000 Units, Oral, DAILY, First dose on Sat05/26/22 at 0900, Until Discontinu ed, Routine [facility] levoFLOXaci n (LEVAQUIN) tablet 500 mg 2021-06 15:00: 00 06-09 14:59 :00 No [id number] 500mg 500 mg, Oral, DAILY, 14 doses, First dose on Sat05/26/22 at 0900, Last dose on Sat06/08/22 at 0900, JOSEFINA
Re ason for Anti-Infec tive: Empiric Non-Surgic al Prophylaxi s
Durat ion of therapy: [address] [facility] fluconazole (DIFLUCAN) tablet 100 mg 2021-06 15:00: 00 06-02 14:59 :00 No [id number] 100mg 100 mg, Oral, DAILY, 7 doses, First dose on Sat05/26/22 at 0900, Last dose on Sat06/01/22 at 0900, JOSEFINA
Re ason for Anti-Infec tive: Empiric Non-Surgic al Prophylaxi s
Durat ion of therapy: [address] [facility] melatonin (MELATIN) tablet 3 mg 2021-06 03:00: 00 Yes 3mg 3 mg, Oral, QHS, First dose on Sat05/25/22 at 2100, Until Discontinu ed, Routine [facility] acyclovir (ZOVIRAX) tablet 400 mg 2021-06 02:00: 00 Yes [id number] 400mg 400 mg, Oral, BID, First dose on Sat05/25/22 at 2000, Until Discontinu ed, JOSEFINA [facility] calcium carbonate (OSCAL-500) tablet 500 mg 2021-06 23:00: 00 Yes 500mg 500 mg, Oral, BID MEALS, First dose on Sat05/25/22 at 1700, Until Discontinu ed, Routine [facility] riTUXimab (RITUXAN) 800 mg in NaCl 0.9% (NS) 800 mL infusion 2021-06 23:00: 00 05-26 05:00 :00 No [id number] 375mg/m 2 800 mg (rounded from 813.75 mg = 375 mg/m2 ?2.17 m2 Treatment Plan BSA from Recorded weight), IV Infusion, ONCE, Administer over 90 Minutes, On Sat05/25/22 at 1700, For 1 dose
In itial infusion: start rate at 50 mg/hr. If there is no reaction, increase rate by 50 mg/hr increments every 30 minutes to a maximum of 400 mg/hr.&nbs p;Subseque nt infusions: initiate rate at 100 mg/hr. If infusion is well-laura ated, rate may be escalated in 100 mg/hr increments at 30 minute intervals to a maximum of 400 mg/hr.&nbs p;For NHL, from Cycle 2 onward, may give over 90 minutes.&n bsp;Dilute d solution may be refrigerat ed for 24 hours.&nbs p;Complete administra tion within 8 hours from removal from refrigerat ion.
[facility] dexamethaso ne (DECADRON) 40 mg in NaCl 0.9% (NS) 50 mL piggyback 2021-06 22:30: 00 05-26 01:32 :00 No [id number] 40mg 40 mg, IV Piggyback, ONCE, 1 dose, On Sat05/25/22 at 1630, Administer over 20 Minutes, [address] [facility] acetaminoph en (TYLENOL) tablet 650 mg 2021-06 22:00: 00 05-26 00:51 :00 No [id number] 650mg 650 mg, Oral, ONCE, 1 dose, On Sat05/25/22 at 1600, Routine [facility] diphenhydrA MINE (BENADRYL) injection 25 mg 2021-06 20:15: 00 05-26 00:51 :00 No [id number] 25mg 25 mg, Slow IV Push, ONCE, 1 dose, On Sat05/25/22 at 1415, Routine [facility] atropine injection 0.25 mg 2021-06 20:10: 39 Yes [id number] .25mg 0.25 mg, IV Push, PRN, Starting on Sat05/25/22 at 1410, Until Discontinu ed, Routine, Stomach cramping, acute flushing. [facility] albuterol (PROVENTIL) 2.5 mg /3 mL (0.083 %) nebulizer solution 2.5 mg 2021-06 20:10: 39 Yes [id number] 2.5mg 2.5 mg, Inhalation , PRN - SEE INSTRUCTIO NS, Starting on Sat05/25/22 at 1410, Until Discontinu ed, Routine, Shortness of Breath, Wheezing, As needed for chemothera py reactions [facility] methylpredn isolone sod succ (SOLU-MEDRO L) injection 125 mg 2021-06 20:10: 39 Yes [id number] 125mg 125 mg, Slow IV Push, Administer over 3 Minutes, PRN - SEE INSTRUCTIO NS, Starting on Sat05/25/22 at 1410, Until Discontinu ed, Routine, As needed for chemothera py reactions [facility] EPINEPHrine (EPIPEN AUTO-INJECT OR) 0.3 mg/0.3 mL injection 0.3 mg 2021-06 20:10: 39 Yes [id number] .3mg 0.3 mg, Intramuscu lar, PRN - SEE INSTRUCTIO NS, Starting on Sat05/25/22 at 1410, Until Discontinu ed, Routine, As needed for chemothera py reactions [facility] diphenhydrA MINE (BENADRYL) injection 50 mg 2021-06 20:10: 39 Yes [id number] 50mg 50 mg, Slow IV Push, Administer over 2 Minutes, PRN - SEE INSTRUCTIO NS, Starting on Sat05/25/22 at 1410, Until Discontinu ed, Routine, As needed for chemothera py reactions< br>INDICAT ION: ANAPHYLAXI S [facility] heparin lock flush (HEPARIN LOCKFLUSH(P ORCINE)(PF) ) 100 unit/mL injection 500 Units 2021-06 20:10: 38 Yes [id number] 500U 500 Units, IV Push, PRN, Starting on Sat05/25/22 at 1410, Until Discontinu ed, Routine [facility] proCHLORper azine (COMPAZINE) tablet 10 mg 2021-06 17:13: 18 Yes 10mg 10 mg, Oral, Q6HPRN, Starting on Sat05/25/22 at 1113, Until Discontinu ed, Routine, N/V unresponsi ve to Ondansetro n [facility] acetaminoph en (TYLENOL) tablet 650 mg 2021-06 16:40: 16 Yes 650mg 650 mg, Oral, Q6HPRN, Starting on Sat05/25/22 at 1040, Until Discontinu ed, Routine, Pain (scale 1-3) [facility] rituximab-p vvr (RUXIENCE) 800 mg in NaCl 0.9% (NS) 800 mL infusion 2021-06 17:15: 00 05-11 19:25 :00 No [id number] 375mg/m 2 800 mg (rounded from 813.75 mg = 375 mg/m2 ?2.17 m2 Treatment Plan BSA from Recorded weight), IV Infusion, ONCE, Administer over 90 Minutes, On Sat05/11/22 at 1115, For 1 dose
In itial infusion: start rate at 50 mg/hr. If there is no reaction, increase rate by 50 mg/hr increments every 30 minutes to a maximum of 400 mg/hr.&nbs p;Subseque nt infusions: initiate rate at 100 mg/hr. If infusion is well-laura ated, rate may be escalated in 100 mg/hr increments at 30 minute intervals to a maximum of 400 mg/hr.&nbs p;For NHL, from Cycle 2 onward, may give over 90 minutes.&n bsp;Dilute d solution may be refrigerat ed for 24 hours.&nbs p;Complete administra tion within 8 hours from removal from refrigerat ion.
[facility] diphenhydrA MINE (BENADRYL) tablet 25 mg 2021-06 16:45: 00 05-11 16:37 :00 No [id number] 25mg 25 mg, Oral, ONCE, 1 dose, On Sat05/11/22 at 1045, Routine [facility] acetaminoph en (TYLENOL) tablet 650 mg 2021-06 16:45: 00 05-11 16:37 :00 No [id number] 650mg 650 mg, Oral, ONCE, 1 dose, On Sat05/11/22 at 1045, Routine [facility] atropine injection 0.25 mg 2021-06 16:34: 06 05-12 16:33 :06 No [id number] .25mg 0.25 mg, IV Push, PRN, Starting on Sat05/11/22 at 1034, Until 05/12/22 at 1033, Routine, Stomach cramping, acute flushing. [facility] albuterol (PROVENTIL) 2.5 mg /3 mL (0.083 %) nebulizer solution 2.5 mg 2021-06 16:34: 06 05-12 16:33 :06 No [id number] 2.5mg 2.5 mg, Inhalation , PRN - SEE INSTRUCTIO NS, Starting on Sat05/11/22 at 1034, Until 05/12/22 at 1033, Routine, Shortness of Breath, Wheezing, As needed for chemothera py reactions [facility] methylpredn isolone sod succ (SOLU-MEDRO L) injection 125 mg 2021-06 16:34: 06 05-12 16:33 :06 No [id number] 125mg 125 mg, Slow IV Push, Administer over 3 Minutes, PRN - SEE INSTRUCTIO NS, Starting on Sat05/11/22 at 1034, Until 05/12/22 at 1033, Routine, As needed for chemothera py reactions [facility] EPINEPHrine (EPIPEN AUTO-INJECT OR) 0.3 mg/0.3 mL injection 0.3 mg 2021-06 16:34: 06 05-12 16:33 :06 No [id number] .3mg 0.3 mg, Intramuscu lar, PRN - SEE INSTRUCTIO NS, Starting on Sat05/11/22 at 1034, Until 05/12/22 at 1033, Routine, As needed for chemothera py reactions [facility] diphenhydrA MINE (BENADRYL) injection 50 mg 2021-06 16:34: 06 05-12 16:33 :06 No [id number] 50mg 50 mg, Slow IV Push, Administer over 2 Minutes, PRN - SEE INSTRUCTIO NS, Starting on Sat05/11/22 at 1034, Until 05/12/22 at 1033, Routine, As needed for chemothera py reactions< br>INDICAT ION: ANAPHYLAXI S [facility] heparin lock flush (HEPARIN LOCKFLUSH(P ORCINE)(PF) ) 100 unit/mL injection 500 Units 2021-06 16:34: 06 05-12 00:09 :21 No [id number] 500U 500 Units, IV Push, PRN, Starting on Sat05/11/22 at 1034, Until Sat05/11/22 at 1809, Routine [facility] pegfilgrast im-bmez (ZIEXTENZO) syringe 6 mg 2021-06 22:00: 00 05-09 21:14 :00 No [id number] 6mg 6 mg, Subcutaneo us, ONCE, 1 dose, On Sat05/09/22 at 1600, Routine
sales team member approving Restricted medication : MANASA EMERSON [facility] foLIC acid 1 mg tablet 2021-06 00:00: 00 05-29 00:00 :00 No [id number] 1mg Take 1 tablet by mouth in the morning for [address] [facility] cholecalcif andrzej, vitamin D3, 25 mcg (1,000 unit) tablet 2021-06 00:00: 00 05-29 00:00 :00 No [id number] 1000U Take 1 tablet by mouth in the morning for [address] [facility] sulfamethox azole-trime thoprim 800-160 mg per tablet 2021-06 00:00: 00 05-24 05:59 :00 No [id number] 1{tbl} Take 1 tablet by mouth every Saturday, and Saturday in the evening for [address] [facility] ondansetron (ZOFRAN) tablet 8 mg 2021-06 14:57: 12 Yes [id number] 8mg 8 mg, Oral, Q6HPRN, 1 dose, Starting on Sat05/08/22 at 0857, Until Discontinu ed, Routine, Nausea and Vomiting (N/V) [facility] atropine injection 0.25 mg 2021-06 14:57: 12 05-09 14:56 :12 No [id number] .25mg 0.25 mg, IV Push, PRN, Starting on Sat05/08/22 at 0857, Until Sat05/09/22 at 0856, Routine, Stomach cramping, acute flushing. [facility] albuterol (PROVENTIL) 2.5 mg /3 mL (0.083 %) nebulizer solution 2.5 mg 2021-06 14:57: 12 05-09 14:56 :12 No [id number] 2.5mg 2.5 mg, Inhalation , PRN - SEE INSTRUCTIO NS, Starting on Sat05/08/22 at 0857, Until Sat05/09/22 at 0856, Routine, Shortness of Breath, Wheezing, As needed for chemothera py reactions [facility] methylpredn isolone sod succ (SOLU-MEDRO L) injection 125 mg 2021-06 14:57: 12 05-09 14:56 :12 No [id number] 125mg 125 mg, Slow IV Push, Administer over 3 Minutes, PRN - SEE INSTRUCTIO NS, Starting on Sat05/08/22 at 0857, Until Sat05/09/22 at 0856, Routine, As needed for chemothera py reactions [facility] EPINEPHrine (EPIPEN AUTO-INJECT OR) 0.3 mg/0.3 mL injection 0.3 mg 2021-06 14:57: 12 05-09 14:56 :12 No [id number] .3mg 0.3 mg, Intramuscu lar, PRN - SEE INSTRUCTIO NS, Starting on Sat05/08/22 at 0857, Until Sat05/09/22 at 0856, Routine, As needed for chemothera py reactions [facility] diphenhydrA MINE (BENADRYL) injection 50 mg 2021-06 14:57: 12 05-09 14:56 :12 No [id number] 50mg 50 mg, Slow IV Push, Administer over 2 Minutes, PRN - SEE INSTRUCTIO NS, Starting on Sat05/08/22 at 0857, Until Sat05/09/22 at 0856, Routine, As needed for chemothera py reactions< br>INDICAT ION: ANAPHYLAXI S [facility] acyclovir 400 mg tablet 2021-06 00:00: 00 05-29 00:00 :00 No [id number] 400mg Take 1 tablet by mouth in the morning and 1 tablet in the evening. [facility] calcium carbonate 500 mg calcium (1,250 mg) tablet 2021-06 00:00: 00 05-29 00:00 :00 No [id number] 500mg Take 1 tablet by mouth in the morning and 1 tablet in the evening. Take with meals. Do all this for [address] [facility] levoFLOXaci n 500 mg tablet 2021-06 00:00: 00 05-29 00:00 :00 No [id number] 500mg Take 1 tablet by mouth every 24 (twenty-fo ur) hours. [facility] fluconazole 200 mg tablet 2021-06 00:00: 00 05-29 00:00 :00 No [id number] 200mg Take 1 tablet by mouth in the morning. [facility] prednisoLON E acetate 1 % ophthalmic suspension drops 2021-06 00:00: 00 05-23 05:59 :00 No [id number] 1[drp] Place 1 Drop in both eyes 4 (four) times daily for [address] [facility] sulfamethox azole-trime thoprim (BACTRIM DS) 800-160 mg per tablet 1 tablet 2021-06 23:00: 00 Yes 1{tbl} 1 tablet, Oral, QMON// SAT AT 1700, First dose on Sat05/07/22 at 1700, Until Discontinu ed, JOSEFINA
Re ason for Anti-Infec tive: Empiric Non-Surgic al Prophylaxi s
Durat ion of therapy: 5 days
Sp ecific indication : chemothera py [facility] sodium bicarbonate 50 mEq in D5W 1,000 mL IV Solution 2021-06 20:45: 00 05-09 20:44 :00 No IV Infusion, CONTINUOUS , Starting on Sat05/07/22 at 1445, Until Sat05/09/22 at 1444, 1,000 mL, at 150 mL/hr [facility] KCL 20 mEq/15 mL solution 40 mEq 2021-06 15:15: 00 05-07 16:23 :00 No 40meq 40 mEq, Oral, ONCE, 1 dose, On Sat05/07/22 at 0915, Routine [facility] calcium carbonate (OSCAL-500) tablet 500 mg 2021-06 23:00: 00 Yes 500mg 500 mg, Oral, BID MEALS, First dose (after last modificati on) on Sat05/06/22 at 1700, Until Discontinu ed, Routine [facility] leucovorin 15 mg in D5W 50 mL infusion 2021-06 21:45: 00 Yes [id number] 15mg 15 mg, IV Piggyback, Q6H ABX, First dose (after last modificati on) on Sat05/06/22 at 1545, Until Discontinu ed, Administer over 15 Minutes, [address] [facility] cytarabine (PF) 5,208 mg in NaCl 0.9% (NS) 500 mL infusion 2021-06 21:30: 00 05-07 10:22 :00 No [id number] 2400mg/ m2 5,208 mg (2,400 mg/m2 ?2.17 m2 Treatment Plan BSA from Recorded weight), IV Infusion, Q12H CHEMO, Administer over 2 Hours, First dose on Sat05/06/22 at 1530, For 2 doses
D o not refrigerat e.
[facility] ondansetron (ZOFRAN (PF)) injection 8 mg 2021-06 21:00: 00 05-07 08:07 :00 No [id number] 8mg 8 mg, Slow IV Push, Q12H CHEMO, First dose on 05/06/22 at 1500, For 2 doses
A dminister 30 minutes prior to each dose of cyclophosp hamide. Dose s of ondansetro n 16 mg and above need to be administer ed via IV piggyback. For Dose >=24mg ECG monitoring is advisable.
[facility] calcium gluconate 2 g in NaCl 100 mL (ISO-OSM) RTU IV infusion 2 g 2021-06 20:30: 00 05-07 01:56 :00 No 2g 2 g, IV Infusion, at 200 mL/hr Administer over 30 Minutes, ONCE, 1 dose, On Sat05/06/22 at 1430, Routine [facility] potassium, sodium phosphates (PHOS-NAK) 280-160-250 mg packet 1 Packet 2021-06 20:00: 00 05-07 13:51 :00 No 1{packe t} 1 Packet, Oral, TID, 3 doses, First dose on 05/06/22 at 1400, Last dose on Sat05/07/22 at 0800, Routine [facility] cholecalcif andrzej (vitamin D3) tablet 1,000 Units 2021-06 15:00: 00 Yes 1000U 1,000 Units, Oral, DAILY, First dose on 05/06/22 at 0900, Until Discontinu ed, Routine [facility] calcium carbonate (OSCAL-500) tablet 500 mg 2021-06 15:00: 00 05-06 18:52 :22 No 500mg 500 mg, Oral, DAILY, First dose on 05/06/22 at 0900, Until Discontinu ed, Routine [facility] cytarabine (PF) 5,208 mg in NaCl 0.9% (NS) 500 mL infusion 2021-06 22:30: 00 05-06 11:43 :00 No [id number] 2400mg/ m2 5,208 mg (2,400 mg/m2 ?2.17 m2 Treatment Plan BSA from Recorded weight), IV Infusion, Q12H CHEMO, Administer over 2 Hours, First dose on 05/05/22 at 1630, For 2 doses
D o not refrigerat e.
[facility] methylPREDN ISolone sodium succinate (SOLU-MEDRO L) 50 mg in NaCl 0.9% (NS) piggyback 2021-06 22:00: 00 05-06 09:30 :00 No [id number] 50mg 50 mg, IV Piggyback, Q12H, 2 doses, First dose on 05/05/22 at 1600, Last dose on 05/05/22 at 2000, Administer over 15 Minutes, [address] [facility] ondansetron (ZOFRAN (PF)) injection 8 mg 2021-06 22:00: 00 05-06 09:16 :00 No [id number] 8mg 8 mg, Slow IV Push, Q12H CHEMO, First dose on 05/05/22 at 1600, For 2 doses
A dminister 30 minutes prior to each dose of cyclophosp hamide. Dose s of ondansetro n 16 mg and above need to be administer ed via IV piggyback. For Dose >=24mg ECG monitoring is advisable.
[facility] methotrexat e (PF) 1,736 mg in NaCl 0.9% (NS) 1,000 mL infusion 2021-06 00:30: 00 05-05 21:42 :00 No [id number] 800mg/m 2 1,736 mg (800 mg/m2 ?2.17 m2 Treatment Plan BSA from Recorded weight), IV Infusion, ONCE, Administer over 22 Hours, On Sat05/04/22 at 1830, For [address] after the completion of methotrexa te bolus.
[facility] ondansetron (ZOFRAN (PF)) injection 8 mg 2021-06 23:30: 00 05-05 09:21 :00 No [id number] 8mg 8 mg, Slow IV Push, Q12H CHEMO, First dose on Sat05/04/22 at 1730, For 2 doses
D oses of ondansetro n 16 mg and above need to be administer ed via IV piggyback. For Dose >=24mg ECG monitoring is advisable. Admi nister first dose 30 minutes prior to chemothera py.
[facility] methotrexat e (PF) 434 mg in NaCl 0.9% (NS) 500 mL infusion 2021-06 22:30: 00 05-04 23:35 :00 No [id number] 200mg/m 2 434 mg (200 mg/m2 ?2.17 m2 Treatment Plan BSA from Recorded weight), IV Infusion, ONCE, Administer over 120 Minutes, On Sat05/04/22 at 1630, For [address] [facility] prednisoLON E acetate (PRED-FORTE ) 1 % ophthalmic suspension drops 1 Drop 2021-06 22:00: 00 05-11 21:59 :00 No [id number] 1[drp] 1 Drop, Both Eyes, QID, 28 doses, First dose on Sat05/04/22 at 1600, Last dose on Sat05/11/22 at 1200, Routine [facility] methylPREDN ISolone sodium succinate (SOLU-MEDRO L) 50 mg in NaCl 0.9% (NS) piggyback 2021-06 21:30: 00 05-05 02:33 :00 No [id number] 50mg 50 mg, IV Piggyback, Q12H, 2 doses, First dose on Sat05/04/22 at 1530, Last dose on Sat05/04/22 at 2000, Administer over 15 Minutes, [address] [facility] sodium bicarbonate 150 mEq in D5W 1,000 mL IV Solution 2021-06 19:30: 00 05-07 19:36 :32 No [id number] IV Infusion, CONTINUOUS , Starting on Sat05/04/22 at 1330, Until Sat05/07/22 at 1336, 1,000 mL, at 150 mL/hr [facility] sodium bicarbonate 8.4 % (1 mEq/mL) injection 50 mEq 2021-06 19:25: 48 Yes [id number] 50meq 50 mEq, Slow IV Push, Q4HPRN, Starting on Sat05/04/22 at 1325, Until Discontinu ed, Routine, urine pH less than 7 [facility] sodium bicarbonate 150 mEq in D5W 1,000 mL IV Solution 2021-06 15:30: 00 05-07 19:36 :32 No [id number] IV Infusion, CONTINUOUS , Starting on Sat05/04/22 at 0930, Until Sat05/07/22 at 1336, 1,000 mL, at 150 mL/hr [facility] sodium bicarbonate 150 mEq in D5W 1,000 mL IV Solution 2021-06 18:30: 00 05-04 15:15 :42 No [id number] IV Infusion, CONTINUOUS , Starting on Sat05/03/22 at 1230, Until Sat05/04/22 at 0915, 1,000 mL, at 100 mL/hr [facility] prednisoLON E acetate (PRED-FORTE ) 1 % ophthalmic suspension drops 1 Drop 2021-06 18:00: 00 05-10 17:59 :00 No [id number] 1[drp] 1 Drop, Both Eyes, QID, 28 doses, First dose on Sat05/03/22 at 1200, Last dose on Sat05/10/22 at 0800, Routine [facility] methotrexat e (PF) 6 mg in NaCl 0.9% (NS) 5 mL injection 2021-06 16:30: 00 05-03 18:00 :00 No [id number] 6mg 6 mg, Intratheca l, ONCE, On Sat05/03/22 at 1030, For 1 dose
To be given via [facility]. Preservati ve-free methotrexa te and preservati ve-free NS.
[facility] sodium bicarbonate 8.4 % (1 mEq/mL) injection 50 mEq 2021-06 14:52: 38 Yes [id number] 50meq 50 mEq, Slow IV Push, Q4HPRN, Starting on Sat05/03/22 at 0852, Until Discontinu ed, Routine, urine pH less than 7 [facility] sodium bicarbonate 100 mEq in D5W 1,000 mL IV Solution 2021-06 14:00: 00 05-03 18:25 :10 No [id number] IV Infusion, CONTINUOUS , Starting on Sat05/03/22 at 0800, Until Sat05/03/22 at 1225, 1,000 mL, at 75 mL/hr [facility] rituximab-p vvr (RUXIENCE) 800 mg in NaCl 0.9% (NS) 800 mL infusion 2021-06 19:00: 00 05-02 20:59 :00 No [id number] 375mg/m 2 800 mg (rounded from 813.75 mg = 375 mg/m2 ?2.17 m2 Treatment Plan BSA from Recorded weight), IV Infusion, ONCE, Administer over 90 Minutes, On Sat05/02/22 at 1300, For 1 dose
In itial infusion: start rate at 50 mg/hr. If there is no reaction, increase rate by 50 mg/hr increments every 30 minutes to a maximum of 400 mg/hr.&nbs p;Subseque nt infusions: initiate rate at 100 mg/hr. If infusion is well-laura ated, rate may be escalated in 100 mg/hr increments at 30 minute intervals to a maximum of 400 mg/hr.&nbs p;For NHL, from Cycle 2 onward, may give over 90 minutes.&n bsp;Dilute d solution may be refrigerat ed for 24 hours.&nbs p;Complete administra tion within 8 hours from removal from refrigerat ion.
[facility] methylPREDN ISolone sodium succinate (SOLU-MEDRO L) 50 mg in NaCl 0.9% (NS) piggyback 2021-06 18:00: 00 05-03 06:01 :00 No [id number] 50mg 50 mg, IV Piggyback, Q12H, 2 doses, First dose on Sat05/02/22 at 1200, Last dose on Sat05/02/22 at 2000, Administer over 15 Minutes, [address] [facility] acetaminoph en (TYLENOL) tablet 650 mg 2021-06 18:00: 00 05-02 18:41 :00 No [id number] 650mg 650 mg, Oral, ONCE, 1 dose, On Sat05/02/22 at 1200, Routine [facility] fluconazole (DIFLUCAN) tablet 100 mg 2021-06 15:00: 00 05-02 15:29 :16 No [id number] 100mg 100 mg, Oral, DAILY, 7 doses, First dose on Sat05/02/22 at 0900, Last dose on Sat05/08/22 at 0900, JOSEFINA
Re ason for Anti-Infec tive: Empiric Non-Surgic al Prophylaxi s
Durat ion of therapy: [address] [facility] acyclovir (ZOVIRAX) tablet 400 mg 2021-06 14:00: 00 Yes [id number] 400mg 400 mg, Oral, BID, First dose on Sat05/02/22 at 0800, Until Discontinu ed, JOSEFINA [facility] diphenhydrA MINE (BENADRYL) injection 25 mg 2021-06 13:30: 00 05-02 18:51 :00 No [id number] 25mg 25 mg, Slow IV Push, ONCE, 1 dose, On Sat05/02/22 at 0730, Routine [facility] proCHLORper azine (COMPAZINE) tablet 10 mg 2021-06 13:16: 18 Yes [id number] 10mg 10 mg, Oral, Q6HPRN, Starting on Sat05/02/22 at 0716, Until Discontinu ed, Routine, Nausea and Vomiting (N/V) [facility] heparin lock flush (HEPARIN LOCKFLUSH(P ORCINE)(PF) ) 100 unit/mL injection 500 Units 2021-06 13:16: 18 Yes [id number] 500U 500 Units, IV Push, PRN, Starting on Sat05/02/22 at 0716, Until Discontinu ed, Routine [facility] foLIC acid (FOLATE) tablet 1 mg 2021-06 15:00: 00 Yes 1mg 1 mg, Oral, DAILY, First dose on Sat05/01/22 at 0900, Until Discontinu ed, Routine [facility] iopamidol (ISOVUE 370-500 mL) injection 70 mL 2021-06 03:59: 00 05-01 04:15 :00 No [id number] 70mL 70 mL, Intravenou s, ONCE, 1 dose, On Sat04/30/22 at 2215, Routine [facility] sulfamethox azole-trime thoprim (BACTRIM DS) 800-160 mg per tablet 1 tablet 2021-06 23:00: 00 05-03 18:25 :30 No 1{tbl} 1 tablet, Oral, QMON/SATS/ SAT AT 1700, First dose on Sat04/30/22 at 1700, Until Discontinu ed, JOSEFINA
Re ason for Anti-Infec tive: Empiric Non-Surgic al Prophylaxi s
Durat ion of therapy: 5 days [facility] ampicillin- sulbactam (UNASYN) 3 g in NaCl 0.9% (NS) 100 mL MINI-BAG 2021-06 19:30: 00 05-01 20:05 :49 No 3g 3 g, IV Piggyback, Q6H ABX, 32 doses, First dose on Sat04/30/22 at 1330, Last dose on Sat05/08/22 at 0730, Administer over 30 Minutes, 100 mL
Reas on for Anti-Infec tive: Documented Infection& lt;br>Docu mented Infection Site: HEENT
D uration of Therapy: [address] [facility] lactated ringers IV infusion 1,000 mL 2021-06 17:45: 00 04-30 17:04 :29 No 1000mL at 50 mL/hr, 1,000 mL, IV Infusion, ONCE, 1 dose, On Sat04/30/22 at 1145, Routine [facility] levoFLOXaci n (LEVAQUIN) tablet 500 mg 2021-06 16:00: 00 Yes 500mg 500 mg, Oral, Q24H, First dose on Sat04/30/22 at 1000, Until Discontinu ed, JOSEFINA
Re ason for Anti-Infec tive: Empiric Non-Surgic al Prophylaxi s
Durat ion of therapy: [address] [facility] febuxostat (ULORIC) tablet 40 mg 2021-06 15:00: 00 Yes 40mg 40 mg, Oral, DAILY, First dose on Sat04/30/22 at 0900, Until Discontinu ed, Routine [facility] fluconazole (DIFLUCAN) tablet 200 mg 2021-06 15:00: 00 Yes 200mg 200 mg, Oral, DAILY, First dose on Sat04/30/22 at 0900, Until Discontinu ed, JOSEFINA
Re ason for Anti-Infec tive: Empiric Non-Surgic al Prophylaxi s
Durat ion of therapy: [address] [facility] heparin (porcine) injection 5,000 Units 2021-06 14:00: 00 Yes 5000U 5,000 Units, Subcutaneo us, Q12H, First dose on Sat04/30/22 at 0800, Until Discontinu ed, Routine [facility] chlorhexidi ne (PERIDEX) 0.12 % mouthwash 15 mL 2021-06 14:00: 00 Yes 15mL 15 mL, Oral (Swish And Spit Out), BID, First dose on Sat04/30/22 at 0800, Until Discontinu ed, Routine [facility] acyclovir (ZOVIRAX) tablet 400 mg 2021-06 14:00: 00 05-02 15:27 :54 No 400mg 400 mg, Oral, BID, First dose on 04/30/22 at 0800, Until Discontinu ed, JOSEFINA [facility] melatonin (MELATIN) tablet 3 mg 2021-06 03:00: 00 Yes 3mg 3 mg, Oral, QHS, First dose on 04/29/22 at 2100, Until Discontinu ed, Routine [facility] diphenhydrA MINE (BENADRYL) tablet 25 mg 2021-06 02:13: 17 Yes 25mg 25 mg, Oral, BIDPRN, Starting on 04/29/22 at 2013, Until Discontinu ed, Routine, Sleep, Itching, Mild Rash [facility] ondansetron (ZOFRAN (PF)) injection 4 mg 2021-06 02:06: 41 Yes 4mg 4 mg, Slow IV Push, Q6HPRN, Nausea and Vomiting (N/V), Starting on 04/29/22 at 2005
Do ses of ondansetro n 16 mg and above need to be administer ed via IV piggyback. For Dose >=24mg ECG monitoring is advisable.
[facility] acetaminoph en (TYLENOL) tablet 650 mg 2021-06 02:05: 35 Yes 650mg 650 mg, Oral, Q6HPRN, Starting on 04/29/22 at 2004, Until Discontinu ed, Routine, Pain (scale 1-3) [facility] chlorhexidi ne 0.12 % mouthwash 2021-06 00:00: 00 Yes [id number] 15mL Swish and spit out 15 mL in the morning and 15 mL in the evening. [facility] clindamycin 150 mg capsule 2021-06 00:00: 00 05-09 05:59 :00 No [id number] 450mg Take 3 capsules by mouth in the morning and 3 capsules at noon and 3 capsules in the evening. Do all this for [address] [facility] NaCl 0.9% (NS) bolus infusion 1,000 mL 2021-06 20:30: 00 04-20 20:40 :00 No [id number] 1000mL at 999 mL/hr, 1,000 mL, IV Piggyback, ONCE, 1 dose, On Sat04/20/22 at 1530, STAT [facility] vinCRIStine (ONCOVIN) 2 mg in NaCl 0.9% (NS) 50 mL infusion 2021-06 18:15: 00 04-20 19:00 :00 No [id number] 2mg 2 mg, IV Infusion, ONCE, Administer over 15 Minutes, On Sat04/20/22 at 1315, For 1 dose
Av oid extravasat ion.
[facility] diphenhydrA MINE (BENADRYL) tablet 25 mg 2021-06 18:15: 00 04-20 18:16 :00 No [id number] 25mg 25 mg, Oral, ONCE, 1 dose, On Sat04/20/22 at 1315, Routine [facility] acetaminoph en (TYLENOL) tablet 650 mg 2021-06 18:15: 00 04-20 18:16 :00 No [id number] 650mg 650 mg, Oral, ONCE, 1 dose, On Sat04/20/22 at 1315, Routine [facility] atropine injection 0.25 mg 2021-06 18:11: 44 04-21 18:10 :44 No [id number] .25mg 0.25 mg, IV Push, PRN, Starting on Sat04/20/22 at 1311, Until 04/21/22 at 1310, Routine, Stomach cramping, acute flushing. [facility] albuterol (PROVENTIL) 2.5 mg /3 mL (0.083 %) nebulizer solution 2.5 mg 2021-06 18:11: 44 04-21 18:10 :44 No [id number] 2.5mg 2.5 mg, Inhalation , PRN - SEE INSTRUCTIO NS, Starting on Sat04/20/22 at 1311, Until 04/21/22 at 1310, Routine, Shortness of Breath, Wheezing, As needed for chemothera py reactions [facility] methylpredn isolone sod succ (SOLU-MEDRO L) injection 125 mg 2021-06 18:11: 44 04-21 18:10 :44 No [id number] 125mg 125 mg, Slow IV Push, Administer over 3 Minutes, PRN - SEE INSTRUCTIO NS, Starting on Sat04/20/22 at 1311, Until 04/21/22 at 1310, Routine, As needed for chemothera py reactions [facility] EPINEPHrine (EPIPEN AUTO-INJECT OR) 0.3 mg/0.3 mL injection 0.3 mg 2021-06 18:11: 44 04-21 18:10 :44 No [id number] .3mg 0.3 mg, Intramuscu lar, PRN - SEE INSTRUCTIO NS, Starting on Sat04/20/22 at 1311, Until 04/21/22 at 1310, Routine, As needed for chemothera py reactions [facility] diphenhydrA MINE (BENADRYL) injection 50 mg 2021-06 18:11: 44 04-21 18:10 :44 No [id number] 50mg 50 mg, Slow IV Push, Administer over 2 Minutes, PRN - SEE INSTRUCTIO NS, Starting on Sat04/20/22 at 1311, Until 04/21/22 at 1310, Routine, As needed for chemothera py reactions< br>INDICAT ION: ANAPHYLAXI S [facility] heparin lock flush (HEPARIN LOCKFLUSH(P ORCINE)(PF) ) 100 unit/mL injection 500 Units 2021-06 18:02: 21 04-21 18:01 :21 No [id number] 500U 500 Units, IV Push, PRN, Starting on Sat04/20/22 at 1302, Until 04/21/22 at 1301, Routine [facility] ondansetron 8 mg disintegrat ing tablet 2021-06 00:00: 00 Yes [id number] 8mg Take 1 tablet by mouth every 8 (eight) hours as needed for Nausea and Vomiting (N/V). [facility] febuxostat 40 mg tablet 2021-06 00:00: 00 08-02 00:00 :00 No [id number] 40mg Take 1 tablet by mouth in the morning. [facility] proCHLORper azine (COMPAZINE) 10 mg tablet 2021-06 00:00: 00 05-29 00:00 :00 No [id number] 10mg Take 1 tablet by mouth every 6 (six) hours as needed for N/V unresponsi ve to Ondansetro n. [facility] sulfamethox azole-trime thoprim 800-160 mg per tablet 2021-06 00:00: 00 05-08 00:00 :00 No [id number] 1{tbl} Take 1 tablet by mouth every Saturday, and Saturday in the evening for [address] [facility] proMETHazin e (PHENERGAN) tablet 12.5 mg 2021-06 18:30: 00 04-15 17:43 :00 No 12.5mg 12.5 mg, Oral, ONCE, 1 dose, On 04/15/22 at 1330, JOSEFINA [facility] furosemide (LASIX) injection 20 mg 2021-06 17:30: 00 04-15 17:21 :00 No 20mg 20 mg, Slow IV Push, ONCE, 1 dose, On 04/15/22 at 1230, Routine [facility] magnesium sulfate in water 4 gram/50 mL (8 %) IV Piggyback 4 g 2021-06 12:30: 00 04-15 15:27 :00 No 4g 4 g, Intravenou s, at 25 mL/hr Administer over 120 Minutes, ONCE, 1 dose, On 04/15/22 at 0730, Routine [facility] melatonin 3 mg tablet 2021-06 00:00: 00 05-29 00:00 :00 No [id number] 3mg Take 1 tablet by mouth at bedtime. [facility] diphenhydrA MINE 25 mg tablet 2021-06 00:00: 00 05-29 00:00 :00 No [id number] 25mg Take 1 tablet by mouth as needed for Allergies. [facility] acyclovir 400 mg tablet 2021-06 00:00: 00 05-08 00:00 :00 No [id number] 400mg Take 1 tablet by mouth in the morning and 1 tablet in the evening. Do all this for [address] [facility] levoFLOXaci n 500 mg tablet 2021-06 00:00: 00 05-08 00:00 :00 No [id number] 500mg Take 1 tablet by mouth every 24 (twenty-fo ur) hours. [facility] fluconazole 200 mg tablet 2021-06 00:00: 00 05-08 00:00 :00 No [id number] 200mg Take 1 tablet by mouth in the morning. [facility] furosemide 20 mg tablet 2021-06 00:00: 00 04-16 04:59 :00 No [id number] 20mg Take 1 tablet by mouth once now for [address] [facility] filgrastim- sndz (ZARXIO) 480 mcg/0.8 mL injection syringe 480 mcg 2021-06 14:00: 00 04-19 13:59 :00 No 480ug 480 mcg, Subcutaneo us, DAILY, 5 doses, First dose on 04/14/22 at 0900, Last dose on Sat04/18/22 at 0900, Routine
sales team member approving Restricted medication : FRANDY UMANA [facility] cytarabine (PF) 50 mg in NaCl 0.9% (NS) 5 mL injection 2021-06 14:00: 00 04-14 18:19 :00 No [id number] 50mg 50 mg, Intratheca l, ONCE, On 04/14/22 at 0900, For 1 dose
Fo r Intratheca l Administra tion Only.
[facility] ondansetron (ZOFRAN) tablet 8 mg 2021-06 13:32: 24 Yes [id number] 8mg 8 mg, Oral, Q6HPRN, 1 dose, Starting on 04/14/22 at 0832, Until Discontinu ed, Routine, Nausea and Vomiting (N/V) [facility] methotrexat e (PF) 6 mg in NaCl 0.9% (NS) 5 mL injection 2021-06 17:15: 00 04-13 17:48 :00 No [id number] 6mg 6 mg, Intratheca l, ONCE, On Sat04/13/22 at 1215, For 1 dose
To be given via Omm[facility] Royal. Preservati ve-free methotrexa te and preservati ve-free NS.
[facility] ondansetron (ZOFRAN) tablet 8 mg 2021-06 17:03: 02 Yes [id number] 8mg 8 mg, Oral, Q6HPRN, 1 dose, Starting on Sat04/13/22 at 1203, Until Discontinu ed, Routine, Nausea and Vomiting (N/V) [facility] atropine injection 0.25 mg 2021-06 17:03: 02 04-14 17:02 :02 No [id number] .25mg 0.25 mg, IV Push, PRN, Starting on Sat04/13/22 at 1203, Until 04/14/22 at 1202, Routine, Stomach cramping, acute flushing. [facility] albuterol (PROVENTIL) 2.5 mg /3 mL (0.083 %) nebulizer solution 2.5 mg 2021-06 17:03: 02 04-14 17:02 :02 No [id number] 2.5mg 2.5 mg, Inhalation , PRN - SEE INSTRUCTIO NS, Starting on Sat04/13/22 at 1203, Until 04/14/22 at 1202, Routine, Shortness of Breath, Wheezing, As needed for chemothera py reactions [facility] methylpredn isolone sod succ (SOLU-MEDRO L) injection 125 mg 2021-06 17:03: 02 04-14 17:02 :02 No [id number] 125mg 125 mg, Slow IV Push, Administer over 3 Minutes, PRN - SEE INSTRUCTIO NS, Starting on Sat04/13/22 at 1203, Until 04/14/22 at 1202, Routine, As needed for chemothera py reactions [facility] EPINEPHrine (EPIPEN AUTO-INJECT OR) 0.3 mg/0.3 mL injection 0.3 mg 2021-06 17:03: 02 04-14 17:02 :02 No [id number] .3mg 0.3 mg, Intramuscu lar, PRN - SEE INSTRUCTIO NS, Starting on Sat04/13/22 at 1203, Until 04/14/22 at 1202, Routine, As needed for chemothera py reactions [facility] diphenhydrA MINE (BENADRYL) injection 50 mg 2021-06 17:03: 02 04-14 17:02 :02 No [id number] 50mg 50 mg, Slow IV Push, Administer over 2 Minutes, PRN - SEE INSTRUCTIO NS, Starting on Sat04/13/22 at 1203, Until 04/14/22 at 1202, Routine, As needed for chemothera py reactions< br>INDICAT ION: ANAPHYLAXI S [facility] benzocaine- menthoL (CEPACOL SORE THROAT (DANIEL-MEN)) lozenge 1 Lozenge 2021-06 03:39: 45 Yes 1{lozen ge} 1 Lozenge, Oral, Q4HPRN, Starting on Sat04/12/22 at 2239, Until Discontinu ed, Routine, Sore throat [facility] HYDROcodone -acetaminop hen (NORCO 5) 5-325 mg tablet 1 tablet 2021-06 23:56: 15 Yes 1{tbl} 1 tablet, Oral, Q4HPRN, Starting on Sat04/12/22 at 1856, Until Discontinu ed, Routine, Pain (scale 7-10) [facility] ceFAZolin (ANCEF) injection 1,000 mg 2021-06 23:30: 00 04-13 22:40 :00 No 1000mg 1,000 mg, Intravenou s, Q8H ABX, 3 doses, First dose (after last modificati on) on Sat04/12/22 at 1830, Last dose on Sat04/13/22 at 1030
Re ason for Anti-Infec tive: Surgical Prophylaxi s
Herrera rgical Prophylaxi s: Neurosurge ry
Dura tion of therapy: within [address] [facility] HYDROmorpho ne (DILAUDID) injection 0.2 mg 2021-06 22:43: 51 Yes .2mg 0.2 mg, Slow IV Push, Q5MIN PRN, 10 doses, Starting on Sat04/12/22 at 1743, Until Discontinu ed, Routine, Pain (scale 7-10), PACU
Us e approved by (Faculty): PACU USE -ANESTHESI A SERVICE-HY DROMORPHON E INJECTIONS [facility] FENTanyl PF (SUBLIMAZE (PF)) injection 25 mcg 2021-06 22:43: 51 Yes 25ug 25 mcg, Slow IV Push, Q5MIN PRN, 4 doses, Starting on Sat04/12/22 at 1743, Until Discontinu ed, Routine, Pain (scale 4-6), PACU [facility] ondansetron (ZOFRAN (PF)) injection 4 mg 2021-06 22:43: 51 Yes 4mg 4 mg, Slow IV Push, PRN, 1 dose, Starting on Sat04/12/22 at 1743, Until Discontinu ed, Routine, Nausea and Vomiting (N/V), PACU [facility] febuxostat (ULORIC) tablet 40 mg 2021-06 22:00: 00 Yes 40mg 40 mg, Oral, QTUE/THURS /SAT/SUN AT 1700, First dose (after last modificati on) on Sat04/12/22 at 1700, Until Discontinu ed, Routine [facility] DOXOrubicin (ADRIAMYCIN ) 108.5 mg in Total Volume 54.25 mL injection 2021-06 21:30: 00 04-13 02:27 :00 No [id number] 50mg/m2 108.5 mg (50 mg/m2 ?2.17 m2 Treatment Plan BSA from Recorded weight), IV Piggyback, ONCE, Administer over 15 Minutes, On Aditi 04/12/22 at 1630, For [address] [facility] lidocaine-e pinephrine (XYLOCAINE WITH EPINEPHRINE ) 2 %-1:100,000 injection 2021-06 21:18: 00 04-12 22:40 :15 No PRN, Starting on Aditi 04/12/22 at 1618, Until Aditi 04/12/22 at 1740, Routine, Intra-op [facility] ondansetron (ZOFRAN (PF)) injection 8 mg 2021-06 21:00: 00 04-13 13:48 :00 No [id number] 8mg 8 mg, Slow IV Push, Q12H CHEMO, First dose on Aditi 04/12/22 at 1600, For 2 doses
A dminister 30 minutes prior to each dose of cyclophosp hamide. Dose s of ondansetro n 16 mg and above need to be administer ed via IV piggyback. For Dose >=24mg ECG monitoring is advisable.
[facility] vinCRIStine (ONCOVIN) 2 mg in NaCl 0.9% (NS) 50 mL infusion 2021-06 21:00: 00 04-13 02:04 :00 No [id number] 2mg 2 mg, IV Infusion, ONCE, Administer over 15 Minutes, On Aditi 04/12/22 at 1600, For 1 dose
Av oid extravasat ion.
[facility] vancomycin (VANCOCIN) 1,000 mg in NaCl 0.9% (NS) 1,000 mL OR irrigation 2021-06 20:58: 00 04-12 22:40 :15 No PRN, Starting on Aditi 04/12/22 at 1558, Intra-op [facility] thrombin topical solution 2021-06 20:57: 00 04-12 22:40 :15 No PRN, Starting on Sat04/12/22 at 1557, Until Sat04/12/22 at 1740, Routine, Intra-op [facility] metoprolol tartrate (LOPRESSOR) tablet 25 mg 2021-06 13:00: 00 04-14 17:12 :19 No 25mg 25 mg, Oral, BID, First dose on Sat04/12/22 at 0800, Until Discontinu ed, Routine [facility] filgrastim- aafi (NIVESTYM) 480 mcg/1.6 mL injection 2021-06 00:00: 00 05-08 00:00 :00 No [id number] 480ug inject 1.6 mL under the skin in the morning. [facility] cyclophosph amide 652 mg in NaCl 0.9% (NS) 100 mL IV infusion 2021-06 22:00: 00 04-12 14:15 :00 No [id number] 300mg/m 2 652 mg (rounded from 651 mg = 300 mg/m2 ?2.17 m2 Treatment Plan BSA from Recorded weight), IV Infusion, Q12H CHEMO, Administer over 180 Minutes, First dose on Sat04/11/22 at 1700, For [address] [facility] mesna (MESNEX) 1,302 mg in NaCl 0.9% (NS) 1,000 mL infusion 2021-06 21:30: 00 04-13 01:51 :00 No [id number] 600mg/m 2 1,302 mg (600 mg/m2 ?2.17 m2 Treatment Plan BSA from Recorded weight), IV Infusion, ONCE, Administer over 24 Hours, On Sat04/11/22 at 1630, For [address] with cyclophosp hamide[address]
[facility] ondansetron (ZOFRAN (PF)) injection 8 mg 2021-06 21:00: 00 04-12 10:26 :00 No [id number] 8mg 8 mg, Slow IV Push, Q12H CHEMO, First dose on Sat04/11/22 at 1600, For 2 doses
A dminister 30 minutes prior to each dose of cyclophosp hamide. Dose s of ondansetro n 16 mg and above need to be administer ed via IV piggyback. For Dose >=24mg ECG monitoring is advisable.
[facility] dexamethaso ne (DECADRON) 40 mg in NaCl 0.9% (NS) 50 mL piggyback 2021-06 21:00: 00 04-11 22:40 :00 No [id number] 40mg 40 mg, IV Piggyback, ONCE, 1 dose, On Sat04/11/22 at 1600, Administer over 20 Minutes, [address] [facility] FENTanyl PF (SUBLIMAZE (PF)) injection 2021-06 20:59: 00 04-11 20:59 :00 No Slow IV Push, PRN, Starting on Sat04/11/22 at 1559, Until Sat04/11/22 at 1559, Routine [facility] midazolam (VERSED) injection 2021-06 20:59: 00 04-11 20:59 :00 No IV Push, PRN, Starting on Sat04/11/22 at 1559, Until Sat04/11/22 at 1559, Routine [facility] ceFAZolin (ANCEF) injection 2021-06 20:50: 00 04-11 20:50 :00 No Slow IV Push, PRN, Starting on Sat04/11/22 at 1550, Until Sat04/11/22 at 1550, JOSEFINA [facility] cyclophosph amide 652 mg in NaCl 0.9% (NS) 100 mL IV infusion 2021-06 21:00: 00 04-11 13:49 :00 No [id number] 300mg/m 2 652 mg (rounded from 651 mg = 300 mg/m2 ?2.17 m2 Treatment Plan BSA from Recorded weight), IV Infusion, Q12H CHEMO, Administer over 180 Minutes, First dose on Sat04/10/22 at 1600, For [address] [facility] mesna (MESNEX) 1,302 mg in NaCl 0.9% (NS) 1,000 mL infusion 2021-06 20:30: 00 04-12 00:30 :00 No [id number] 600mg/m 2 1,302 mg (600 mg/m2 ?2.17 m2 Treatment Plan BSA from Recorded weight), IV Infusion, ONCE, Administer over 24 Hours, On Sat04/10/22 at 1530, For [address] [facility] with cyclophosp hamide.
[facility] ondansetron (ZOFRAN (PF)) injection 8 mg 2021-06 20:00: 00 04-11 10:35 :00 No [id number] 8mg 8 mg, Slow IV Push, Q12H CHEMO, First dose on Sat04/10/22 at 1500, For 2 doses
A dminister 30 minutes prior to each dose of cyclophosp hamide. Dose s of ondansetro n 16 mg and above need to be administer ed via IV piggyback. For Dose >=24mg ECG monitoring is advisable.
[facility] dexamethaso ne (DECADRON) 40 mg in NaCl 0.9% (NS) 50 mL piggyback 2021-06 20:00: 00 04-10 21:32 :00 No [id number] 40mg 40 mg, IV Piggyback, ONCE, 1 dose, On Sat04/10/22 at 1500, Administer over 20 Minutes, [address] [facility] magnesium sulfate in water 4 gram/50 mL (8 %) IV Piggyback 4 g 2021-06 12:45: 00 04-10 15:27 :00 No 4g 4 g, IV Piggyback, at 25 mL/hr Administer over 120 Minutes, ONCE, 1 dose, On Sat04/10/22 at 0745, Routine [facility] methylPREDN ISolone sodium succinate (SOLU-MEDRO L) 1,000 mg in D5W 250 mL VIAL-MATE IV piggyback 2021-06 22:09: 40 Yes 1000mg 1,000 mg, Intravenou s, PRN, Starting on Sat04/09/22 at 1709, Until Discontinu ed, Administer over 60 Minutes, [address] [facility] sulfamethox azole-trime thoprim (BACTRIM DS) 800-160 mg per tablet 1 tablet 2021-06 22:00: 00 Yes 1{tbl} 1 tablet, Oral, QMON/SATS/ FRI AT 1700, First dose on Sat04/09/22 at 1700, Until Discontinu ed, JOSEFINA
Re ason for Anti-Infec tive: Empiric Non-Surgic al Prophylaxi s
Durat ion of therapy: [address] [facility] EPINEPHrine (EPIPEN AUTO-INJECT OR) 0.3 mg/0.3 mL injection 0.3 mg 2021-06 21:52: 39 Yes 1{syrin ge} 0.3 mg (1 Syringe), Intramuscu lar, PRN, Starting on Sat04/09/22 at 1652, Until Discontinu ed, Routine, chemo [facility] diphenhydrA MINE (BENADRYL) injection 25 mg 2021-06 21:50: 14 Yes 25mg 25 mg, Intravenou s, Q6HPRN, Starting on Sat04/09/22 at 1650, Until Discontinu ed, Routine, chemo [facility] cyclophosph amide 652 mg in NaCl 0.9% (NS) 100 mL IV infusion 2021-06 21:00: 00 04-10 13:50 :00 No [id number] 300mg/m 2 652 mg (rounded from 651 mg = 300 mg/m2 ?2.17 m2 Treatment Plan BSA from Recorded weight), IV Infusion, Q12H CHEMO, Administer over 180 Minutes, First dose on Sat04/09/22 at 1600, For [address] [facility] mesna (MESNEX) 1,302 mg in NaCl 0.9% (NS) 1,000 mL infusion 2021-06 20:30: 00 04-10 23:05 :00 No [id number] 600mg/m 2 1,302 mg (600 mg/m2 ?2.17 m2 Treatment Plan BSA from Recorded weight), IV Infusion, ONCE, Administer over 24 Hours, On Sat04/09/22 at 1530, For [address] [facility] with cyclophosp hamide.
[facility] ondansetron (ZOFRAN (PF)) injection 8 mg 2021-06 20:00: 00 04-10 10:46 :00 No [id number] 8mg 8 mg, Slow IV Push, Q12H CHEMO, First dose on Sat04/09/22 at 1500, For 2 doses
A dminister 30 minutes prior to each dose of cyclophosp hamide. Dose s of ondansetro n 16 mg and above need to be administer ed via IV piggyback. For Dose >=24mg ECG monitoring is advisable.
[facility] dexamethaso ne (DECADRON) 40 mg in NaCl 0.9% (NS) 50 mL piggyback 2021-06 20:00: 00 04-09 22:42 :00 No [id number] 40mg 40 mg, IV Piggyback, ONCE, 1 dose, On Sat04/09/22 at 1500, Administer over 20 Minutes, [address] [facility] FENTanyl PF (SUBLIMAZE (PF)) injection 12.5 mcg 2021-06 14:14: 09 Yes 12.5ug 12.5 mcg, Slow IV Push, Q6HPRN, Starting on Sat04/09/22 at 0914, Until Discontinu ed, Routine, Pain (scale 7-10) [facility] magnesium sulfate in water 4 gram/50 mL (8 %) IV Piggyback 4 g 2021-06 12:30: 00 04-09 15:31 :00 No 4g 4 g, IV Piggyback, at 25 mL/hr Administer over 120 Minutes, ONCE, 1 dose, On Sat04/09/22 at 0730, Routine [facility] traMADoL (ULTRAM) tablet 50 mg 2021-06 08:07: 00 04-09 09:58 :00 No 50mg 50 mg, Oral, ONCE, 1 dose, On 04/09/22 at 0315, Routine [facility] acyclovir (ZOVIRAX) tablet 400 mg 2021-06 0-17 01:00: 00 Yes 400mg 400 mg, Oral, BID, First dose on 04/08/22 at 2000, Until Discontinu ed, JOSEFINA [facility] fluconazole (DIFLUCAN) Piggyback 200 mg 2021-06 17:30: 00 04-14 16:56 :37 No 200mg at 100 mL/hr, IV Piggyback, Q24H ABX, 7 doses, First dose on 04/08/22 at 1230, Last dose on 04/14/22 at 1230, JOSEFINA
Do Not Refrigerat e.
[facility] levoFLOXaci n (LEVAQUIN) tablet 500 mg 2021-06-16 17:30: 00 04-14 16:57 :00 No 500mg 500 mg, Oral, Q24H ABX, 7 doses, First dose on 04/08/22 at 1230, Last dose on 04/14/22 at 1230, JOSEFINA
Re ason for Anti-Infec tive: Empiric Non-Surgic al Prophylaxi s
Durat ion of therapy: 5 days [facility] magnesium sulfate in water 4 gram/50 mL (8 %) IV Piggyback 4 g 2021-06 0-16 12:30: 00 04-08 14:05 :00 No 4g 4 g, IV Piggyback, at 25 mL/hr Administer over 120 Minutes, ONCE, 1 dose, On 04/08/22 at 0730, Routine [facility] sennosides- docusate sodium (SENOKOT-S) 8.6-50 mg per tablet 2 tablet 2021-06 015 15:30: 00 Yes 2{tbl} 2 tablet, Oral, DAILY, First dose on 04/07/22 at 1030, Until Discontinu ed, Routine [facility] calcitONIN (salmon) (CALCIMAR) injection 400 Units 2021-06 0-14 23:00: 00 04-07 13:41 :00 No 4U/kg 400 Units (rounded from 399.2 Units = 4 Units/kg ?99.8 kg), Intramuscu lar, Q12H ABX, 2 doses, First dose on Sat04/06/22 at 1800, Last dose on Sat04/07/22 at 0600, Routine [facility] rasburicase (ELITEK) 6 mg in NaCl 0.9% (NS) infusion 2021-06 21:00: 00 04-06 23:31 :00 No 6mg 6 mg, IV Piggyback, 50 mL [facility] lidocaine 1% (PF) (XYLOCAINE) injection 5 mL 2021-06 19:00: 00 04-06 21:30 :00 No 5mL 5 mL, Subcutaneo us, ONCE, 1 dose, On Sat04/06/22 at 1400, Routine [facility] NaCl 0.9% (NS) injection 10 mL 2021-06 18:47: 40 Yes 10mL 10 mL, Slow IV Push, PRN, Starting on Sat04/06/22 at 1347, Until Discontinu ed, Routine, line maintenanc e [facility] HYDROcodone -acetaminop hen (NORCO 5) 5-325 mg tablet 1 tablet 2021-06 17:00: 00 Yes 1{tbl} 1 tablet, Oral, Q6H, First dose on Sat04/06/22 at 1200, Until Discontinu ed, Routine [facility] pamidronate (AREDIA) 60 mg in NaCl 0.9% (NS) infusion 2021-06 15:00: 00 04-06 21:34 :00 No 60mg 60 mg, IV Piggyback, ONCE, 1 dose, On Sat04/06/22 at 1000, Administer over 2 Hours, 250 mL [facility] polyethylen e glycol 3350 powder 17 g 2021-06 14:00: 00 Yes 17g 17 g, Oral, DAILY, First dose on Sat04/06/22 at 0900, Until Discontinu ed, Routine [facility] magnesium sulfate in water 4 gram/50 mL (8 %) IV Piggyback 4 g 2021-06 13:00: 00 04-06 20:18 :00 No 4g 4 g, IV Piggyback, at 25 mL/hr Administer over 120 Minutes, ONCE, 1 dose, On Sat04/06/22 at 0800, Routine [facility] calcitONIN (salmon) (CALCIMAR) injection 400 Units 2021-06 11:00: 00 04-06 11:07 :00 No 4U/kg 400 Units (rounded from 399.2 Units = 4 Units/kg ?99.8 kg), Subcutaneo us, ONCE, 1 dose, On Sat04/06/22 at 0600, Routine [facility] gadobenate dimeglumine (MULTIHANCE -20 mL) injection 19.96 mL 2021-06 09:30: 00 04-06 09:00 :00 No [id number] .2mL/kg 19.96 mL (0.2 mL/kg ?99.8 kg), Intravenou s, ONCE, 1 dose, On Sat04/06/22 at 0430, Routine [facility] ondansetron (ZOFRAN (PF)) injection 4 mg 2021-06 02:03: 50 Yes 4mg 4 mg, Slow IV Push, Q6HPRN, Nausea and Vomiting (N/V), Starting on Sat04/05/22 at 2103
Do ses of ondansetro n 16 mg and above need to be administer ed via IV piggyback. For Dose >=24mg ECG monitoring is advisable.
[facility] melatonin (MELATIN) tablet 3 mg 2021-06 02:00: 00 Yes 3mg 3 mg, Oral, QHS, First dose on Sat04/05/22 at 2100, Until Discontinu ed, Routine [facility] heparin (porcine) injection 5,000 Units 2021-06 01:00: 00 Yes 5000U 5,000 Units, Subcutaneo us, Q12H, First dose on Aditi 10/13/22 at 2000, Until Discontinu ed, Routine [facility] NaCl 0.9% (NS) IV infusion 1,000 mL 2021-06 23:45: 00 04-14 18:07 :14 No 1000mL at 125 mL/hr, IV Infusion, CONTINUOUS , Starting on Aditi 04/05/22 at 1845, Until 04/14/22 at 1307, Routine [facility] furosemide (LASIX) injection 40 mg 2021-06 23:45: 00 04-05 23:58 :00 No 40mg 40 mg, Slow IV Push, ONCE, 1 dose, On Aditi 04/05/22 at 1845, Routine [facility] febuxostat (ULORIC) tablet 40 mg 2021-06 23:30: 00 04-11 12:11 :15 No 40mg 40 mg, Oral, DAILY, First dose on Aditi 04/05/22 at 1830, Until Discontinu ed, Routine [facility] calcitONIN (salmon) (CALCIMAR) injection 400 Units 2021-06 23:30: 00 04-06 00:41 :00 No 4U/kg 400 Units (rounded from 399.2 Units = 4 Units/kg ?99.8 kg), Subcutaneo us, ONCE, 1 dose, On Aditi 04/05/22 at 1830, Routine [facility] carvediloL (COREG) tablet 6.25 mg 2021-06 22:00: 00 04-12 02:31 :05 No 6.25mg 6.25 mg, Oral, BID MEALS, First dose on Aditi 04/05/22 at 1700, Until Discontinu ed, Routine [facility] traMADoL (ULTRAM) tablet 50 mg 2021-06 21:42: 28 04-07 21:41 :28 No 50mg 50 mg, Oral, Q8HPRN, Starting on Aditi 04/05/22 at 1642, Until 04/07/22 at 1641, Routine, Pain (scale 4-6) [facility] acetaminoph en (TYLENOL) tablet 500 mg 2021-06 21:42: 15 04-11 20:40 :25 No 500mg 500 mg, Oral, BIDPRN, Starting on Sat04/05/22 at 1642, Until Sat04/11/22 at 1540, Routine, Pain (scale 1-3) [facility] carvediloL 6.25 mg tablet 2021-06 00:00: 00 04-15 00:00 :00 No [id number] 6.25mg Take 1 tablet by mouth in the morning and 1 tablet in the evening. Take with meals. [facility] amLODIPine 10 mg tablet 2021-06 00:00: 00 04-05 00:00 :00 No [id number] 10mg Take 1 tablet by mouth in the morning. [facility] amLODIPine 10 mg tablet 03-03 00:00: 00 03-30 00:00 :00 No [id number] 10mg Take 1 tablet by mouth in the morning. [facility] furosemide 20 mg tablet 03-02 00:00: 00 04-05 00:00 :00 No [id number] 20mg Take 1 tablet by mouth every morning and evening. [facility] KCL 20 mEq tablet 03-02 00:00: 00 04-05 00:00 :00 No [id number] 20meq Take 1 tablet by mouth in the morning. [facility] lactulose 10 gram/15 mL solution 03-02 00:00: 00 04-05 00:00 :00 No [id number] 15mL Take 15 mL by mouth 3 (three) times daily as needed for Constipati on. [facility] benzonatate 100 mg capsule 03-02 00:00: 00 04-05 00:00 :00 No [id number] 100mg Take 1 capsule by mouth every 8 (eight) hours as needed for Cough. [facility] carvediloL 6.25 mg tablet 03-02 00:00: 00 03-30 00:00 :00 No [id number] 6.25mg Take 1 tablet by mouth in the morning and 1 tablet in the evening. Take with meals. [facility] TAKE 1 -2 TABLET BY MOUTH 1 -2 HOURS BEFORE AT BEDTIME NEEDED IF IT DOES NOT EFFECT YOU MAY INCREASE TO 2 TABLET 02-15 00:00: 00 No 75 cyclobenzap rine 7.5 mg tablet 03-03 00:00: 00 No 12mg indomethaci n 50 mg capsule 03-03 00:00: 00 No 1mg hydrochloro thiazide 12.5 mg capsule 10-06 00:00: 00 No 1mg ProAir HFA 90 mcg/actuati on aerosol inhaler 09-30 00:00: 00 No 12mcg/a ctuatio n benazepril 10 mg tablet 09-30 00:00: 00 No 1mg amoxicillin 875 mg-potassiu m clavulanate 125 mg tablet 09-30 00:00: 00 No 1mg Vital Signs Vital Name Observation Time Observation Value Comments S ource Height 2023-10-19 17:30:00 172.72 CM Weight 2023-10-19 17:30:00 118.63 KG Systolic blood pressure 2023-03-06 19:14:00 140 mm[Hg] [facility] Diastolic blood pressure 2023-03-06 19:14:00 84 mm[Hg] [facility] Heart rate 2023-03-06 19:14:00 77 /min [facility] Body temperature 2023-03-06 19:14:00 36.67 Belinda [facility] Respiratory rate 2023-03-06 19:14:00 16 /min [facility] Body height 2023-03-06 19:14:00 170.2 cm [facility] Body weight 2023-03-06 19:14:00 105.597 kg [facility] BMI 2023-03-06 19:14:00 36.46 kg/m2 [facility] Oxygen saturation in Arterial blood by Pulse oximetry 2023-03-06 19:14:00 100 /min [facility] Systolic blood pressure 2023-01-23 20:55:00 133 mm[Hg] [facility] Diastolic blood pressure 2023-01-23 20:55:00 80 mm[Hg] [facility] Heart rate 2023-01-23 20:55:00 64 /min [facility] Body temperature 2023-01-23 20:55:00 35.67 Belinda [facility] Respiratory rate 2023-01-23 20:55:00 16 /min [facility] Body height 2023-01-23 20:55:00 170.2 cm [facility] Body weight 2023-01-23 20:55:00 100.699 kg [facility] BMI 2023-01-23 20:55:00 34.77 kg/m2 [facility] Oxygen saturation in Arterial blood by Pulse oximetry 2023-01-23 20:55:00 100 /min [facility] Systolic blood pressure 2022-12-28 16:50:00 117 mm[Hg] [facility] Diastolic blood pressure 2022-12-28 16:50:00 66 mm[Hg] [facility] Heart rate 2022-12-28 16:50:00 60 /min [facility] Body temperature 2022-12-28 16:50:00 36.89 Belinda [facility] Respiratory rate 2022-12-28 16:50:00 20 /min [facility] Oxygen saturation in Arterial blood by Pulse oximetry 2022-12-28 16:50:00 97 /min [facility] Body height 2022-12-28 03:08:00 170.2 cm [facility] Body weight 2022-12-28 03:08:00 97.07 kg [facility] BMI 2022-12-28 03:08:00 33.52 kg/m2 [facility] Systolic blood pressure 2022-12-26 16:38:00 122 mm[Hg] [facility] Diastolic blood pressure 2022-12-26 16:38:00 63 mm[Hg] [facility] Heart rate 2022-12-26 16:38:00 65 /min [facility] Body temperature 2022-12-26 16:38:00 37.11 Belinda [facility] Respiratory rate 2022-12-26 16:38:00 20 /min [facility] Oxygen saturation in Arterial blood by Pulse oximetry 2022-12-26 16:38:00 97 /min [facility] Body weight 2022-12-20 20:00:00 96.48 kg [facility] BMI 2022-12-20 20:00:00 33.31 kg/m2 [facility] Body height 2022-12-06 14:54:00 170.2 cm [facility] Systolic blood pressure 2022-11-26 17:09:00 128 mm[Hg] [facility] Diastolic blood pressure 2022-11-26 17:09:00 74 mm[Hg] [facility] Heart rate 2022-11-26 17:09:00 71 /min [facility] Body temperature 2022-11-26 17:09:00 36.78 Belinda [facility] Respiratory rate 2022-11-26 17:09:00 18 /min [facility] Body weight 2022-11-26 17:09:00 102.513 kg [facility] BMI 2022-11-26 17:09:00 35.40 kg/m2 [facility] Oxygen saturation in Arterial blood by Pulse oximetry 2022-11-26 17:09:00 96 /min [facility] Systolic blood pressure 2022-11-22 20:47:00 114 mm[Hg] [facility] Diastolic blood pressure 2022-11-22 20:47:00 68 mm[Hg] [facility] Heart rate 2022-11-22 20:47:00 68 /min [facility] Body temperature 2022-11-22 20:47:00 36.17 Belinda [facility] Respiratory rate 2022-11-22 20:47:00 16 /min [facility] Body height 2022-11-22 20:47:00 170.2 cm [facility] Body weight 2022-11-22 20:47:00 98.975 kg [facility] BMI 2022-11-22 20:47:00 34.17 kg/m2 [facility] Oxygen saturation in Arterial blood by Pulse oximetry 2022-11-22 20:47:00 98 /min [facility] Systolic blood pressure 2022-11-20 18:39:00 137 mm[Hg] [facility] Diastolic blood pressure 2022-11-20 18:39:00 85 mm[Hg] [facility] Heart rate 2022-11-20 18:39:00 84 /min [facility] Body temperature 2022-11-20 18:39:00 36.94 Belinda [facility] Respiratory rate 2022-11-20 18:39:00 18 /min [facility] Body weight 2022-11-20 18:39:00 102 kg [facility] BMI 2022-11-20 18:39:00 35.22 kg/m2 [facility] Oxygen saturation in Arterial blood by Pulse oximetry 2022-11-20 18:39:00 98 /min [facility] Systolic blood pressure 2022-11-18 21:00:00 137 mm[Hg] [facility] Diastolic blood pressure 2022-11-18 21:00:00 73 mm[Hg] [facility] Heart rate 2022-11-18 21:00:00 71 /min [facility] Body temperature 2022-11-18 21:00:00 37.11 Belinda [facility] Respiratory rate 2022-11-18 21:00:00 20 /min [facility] Oxygen saturation in Arterial blood by Pulse oximetry 2022-11-18 21:00:00 95 /min [facility] Body weight 2022-11-18 15:00:00 106.9 kg [facility] BMI 2022-11-18 15:00:00 36.91 kg/m2 [facility] Body height 2022-11-13 00:21:00 170.2 cm [facility] Systolic blood pressure 2022-10-18 19:50:00 98 mm[Hg] [facility] Diastolic blood pressure 2022-10-18 19:50:00 61 mm[Hg] [facility] Heart rate 2022-10-18 19:50:00 77 /min [facility] Body temperature 2022-10-18 19:50:00 36.17 Belinda [facility] Respiratory rate 2022-10-18 19:50:00 17 /min [facility] Body height 2022-10-18 19:50:00 170.2 cm [facility] Body weight 2022-10-18 19:50:00 100.472 kg [facility] BMI 2022-10-18 19:50:00 34.69 kg/m2 [facility] Oxygen saturation in Arterial blood by Pulse oximetry 2022-10-18 19:50:00 97 /min [facility] Systolic blood pressure 2022-10-12 01:15:00 135 mm[Hg] [facility] Diastolic blood pressure 2022-10-12 01:15:00 95 mm[Hg] [facility] Heart rate 2022-10-12 01:15:00 89 /min [facility] Body temperature 2022-10-12 01:15:00 37.22 Belinda [facility] Respiratory rate 2022-10-12 01:15:00 16 /min [facility] Body height 2022-10-12 01:15:00 170.2 cm [facility] Body weight 2022-10-12 01:15:00 98.884 kg [facility] BMI 2022-10-12 01:15:00 34.14 kg/m2 [facility] Oxygen saturation in Arterial blood by Pulse oximetry 2022-10-12 01:15:00 98 /min [facility] Systolic blood pressure 2022-09-12 14:27:00 126 mm[Hg] [facility] Diastolic blood pressure 2022-09-12 14:27:00 74 mm[Hg] [facility] Heart rate 2022-09-12 14:27:00 64 /min [facility] Body temperature 2022-09-12 14:27:00 36.28 Belinda [facility] Respiratory rate 2022-09-12 14:27:00 16 /min [facility] Body height 2022-09-12 14:27:00 170.2 cm [facility] Body weight 2022-09-12 14:27:00 99.565 kg [facility] BMI 2022-09-12 14:27:00 34.38 kg/m2 [facility] Oxygen saturation in Arterial blood by Pulse oximetry 2022-09-12 14:27:00 99 /min [facility] Systolic blood pressure 2022-08-20 21:47:00 137 mm[Hg] [facility] Diastolic blood pressure 2022-08-20 21:47:00 77 mm[Hg] [facility] Heart rate 2022-08-20 21:46:00 73 /min [facility] Body temperature 2022-08-20 21:46:00 37 Belinda [facility] Respiratory rate 2022-08-20 21:46:00 17 /min [facility] Body height 2022-08-20 21:46:00 170.2 cm [facility] Body weight 2022-08-20 21:46:00 104.237 kg [facility] BMI 2022-08-20 21:46:00 35.99 kg/m2 [facility] Systolic blood pressure 2022-07-17 22:17:00 146 mm[Hg] [facility] Diastolic blood pressure 2022-07-17 22:17:00 92 mm[Hg] [facility] Heart rate 2022-07-17 22:17:00 97 /min [facility] Body temperature 2022-07-17 22:17:00 36.33 Belinda [facility] Respiratory rate 2022-07-17 22:17:00 16 /min [facility] Oxygen saturation in Arterial blood by Pulse oximetry 2022-07-17 22:17:00 97 /min [facility] Body weight 2022-07-17 11:00:00 98.431 kg [facility] BMI 2022-07-17 11:00:00 33.99 kg/m2 [facility] Body height 2022-07-16 16:38:00 170.2 cm [facility] Systolic blood pressure 2022-07-12 20:06:00 126 mm[Hg] [facility] Diastolic blood pressure 2022-07-12 20:06:00 87 mm[Hg] [facility] Heart rate 2022-07-12 20:06:00 72 /min [facility] Body temperature 2022-07-12 20:06:00 36.17 Belinda [facility] Respiratory rate 2022-07-12 20:06:00 16 /min [facility] Body height 2022-07-12 20:06:00 170.2 cm [facility] Body weight 2022-07-12 20:06:00 98.431 kg [facility] BMI 2022-07-12 20:06:00 33.99 kg/m2 [facility] Oxygen saturation in Arterial blood by Pulse oximetry 2022-07-12 20:06:00 99 /min [facility] Systolic blood pressure 2022-07-02 18:26:00 126 mm[Hg] [facility] Diastolic blood pressure 2022-07-02 18:26:00 74 mm[Hg] [facility] Heart rate 2022-07-02 18:26:00 67 /min [facility] Body temperature 2022-07-02 18:26:00 36.56 Belinda [facility] Respiratory rate 2022-07-02 18:26:00 15 /min [facility] Oxygen saturation in Arterial blood by Pulse oximetry 2022-07-02 18:26:00 96 /min [facility] Body height 2022-07-02 11:00:00 170.2 cm [facility] Body weight 2022-07-02 11:00:00 95.936 kg [facility] BMI 2022-07-02 11:00:00 33.13 kg/m2 [facility] Systolic blood pressure 2022-06-12 16:25:00 133 mm[Hg] [facility] Diastolic blood pressure 2022-06-12 16:25:00 70 mm[Hg] [facility] Heart rate 2022-06-12 16:25:00 79 /min [facility] Body height 2022-06-12 16:25:00 170.2 cm [facility] Body weight 2022-06-12 16:25:00 101.334 kg [facility] BMI 2022-06-12 16:25:00 34.99 kg/m2 [facility] Oxygen saturation in Arterial blood by Pulse oximetry 2022-06-12 16:25:00 98 /min [facility] Systolic blood pressure 2022-06-06 16:55:00 115 mm[Hg] [facility] Diastolic blood pressure 2022-06-06 16:55:00 61 mm[Hg] [facility] Heart rate 2022-06-06 16:55:00 69 /min [facility] Body temperature 2022-06-06 16:55:00 36.56 Belinda [facility] Respiratory rate 2022-06-06 16:55:00 17 /min [facility] Body height 2022-06-06 16:55:00 170.2 cm [facility] Body weight 2022-06-06 16:55:00 101.969 kg [facility] BMI 2022-06-06 16:55:00 35.21 kg/m2 [facility] Oxygen saturation in Arterial blood by Pulse oximetry 2022-06-06 16:55:00 100 /min [facility] Systolic blood pressure 2022-06-05 15:16:00 118 mm[Hg] [facility] Diastolic blood pressure 2022-06-05 15:16:00 72 mm[Hg] [facility] Heart rate 2022-06-05 15:16:00 86 /min [facility] Body temperature 2022-06-05 15:16:00 36.22 Belinda [facility] Respiratory rate 2022-06-05 15:16:00 20 /min [facility] Body weight 2022-06-05 15:16:00 101.6 kg [facility] BMI 2022-06-05 15:16:00 35.08 kg/m2 [facility] Oxygen saturation in Arterial blood by Pulse oximetry 2022-06-05 15:16:00 98 /min [facility] Systolic blood pressure 2022-05-30 21:34:00 131 mm[Hg] [facility] Diastolic blood pressure 2022-05-30 21:34:00 78 mm[Hg] [facility] Heart rate 2022-05-30 21:34:00 99 /min [facility] Body temperature 2022-05-30 21:34:00 36.44 Belinda [facility] Respiratory rate 2022-05-30 21:34:00 18 /min [facility] Body weight 2022-05-30 21:34:00 99.7 kg [facility] BMI 2022-05-30 21:34:00 34.43 kg/m2 [facility] Oxygen saturation in Arterial blood by Pulse oximetry 2022-05-30 21:34:00 98 /min [facility] Systolic blood pressure 2022-05-29 19:20:00 124 mm[Hg] [facility] Diastolic blood pressure 2022-05-29 19:20:00 70 mm[Hg] [facility] Heart rate 2022-05-29 19:20:00 65 /min [facility] Body temperature 2022-05-29 19:20:00 36.44 Belinda [facility] Respiratory rate 2022-05-29 19:20:00 18 /min [facility] Oxygen saturation in Arterial blood by Pulse oximetry 2022-05-29 19:20:00 97 /min [facility] Body weight 2022-05-29 10:42:00 99.746 kg [facility] BMI 2022-05-29 10:42:00 34.44 kg/m2 [facility] Body height 2022-05-25 16:30:00 170.2 cm [facility] Systolic blood pressure 2022-05-14 20:25:00 118 mm[Hg] [facility] Diastolic blood pressure 2022-05-14 20:25:00 69 mm[Hg] [facility] Heart rate 2022-05-14 20:25:00 81 /min [facility] Body temperature 2022-05-14 20:25:00 36.5 Belinda [facility] Respiratory rate 2022-05-14 20:25:00 18 /min [facility] Body weight 2022-05-14 20:25:00 98.93 kg [facility] BMI 2022-05-14 20:25:00 34.16 kg/m2 [facility] Oxygen saturation in Arterial blood by Pulse oximetry 2022-05-14 20:25:00 94 /min [facility] Systolic blood pressure 2022-05-11 16:20:00 125 mm[Hg] [facility] Diastolic blood pressure 2022-05-11 16:20:00 79 mm[Hg] [facility] Heart rate 2022-05-11 16:20:00 63 /min [facility] Body temperature 2022-05-11 16:20:00 36.17 Belinda [facility] Respiratory rate 2022-05-11 16:20:00 18 /min [facility] Body weight 2022-05-11 16:20:00 96 kg [facility] BMI 2022-05-11 16:20:00 33.15 kg/m2 [facility] Oxygen saturation in Arterial blood by Pulse oximetry 2022-05-11 16:20:00 98 /min [facility] Systolic blood pressure 2022-05-09 21:04:00 141 mm[Hg] [facility] Diastolic blood pressure 2022-05-09 21:04:00 83 mm[Hg] [facility] Heart rate 2022-05-09 21:04:00 72 /min [facility] Body temperature 2022-05-09 21:04:00 36.5 Belinda [facility] Respiratory rate 2022-05-09 21:04:00 18 /min [facility] Body weight 2022-05-09 21:04:00 99.1 kg [facility] BMI 2022-05-09 21:04:00 34.22 kg/m2 [facility] Oxygen saturation in Arterial blood by Pulse oximetry 2022-05-09 21:04:00 98 /min [facility] Systolic blood pressure 2022-05-08 17:31:00 119 mm[Hg] [facility] Diastolic blood pressure 2022-05-08 17:31:00 76 mm[Hg] [facility] Heart rate 2022-05-08 17:31:00 74 /min [facility] Body temperature 2022-05-08 17:31:00 36.5 Belinda [facility] Respiratory rate 2022-05-08 17:31:00 19 /min [facility] Oxygen saturation in Arterial blood by Pulse oximetry 2022-05-08 17:31:00 99 /min [facility] Body weight 2022-05-05 12:00:00 101.696 kg [facility] BMI 2022-05-05 12:00:00 35.11 kg/m2 [facility] Body height 2022-04-30 02:04:00 170.2 cm [facility] Systolic blood pressure 2022-04-28 13:32:50 141 mm[Hg] [facility] Diastolic blood pressure 2022-04-28 13:32:50 75 mm[Hg] [facility] Heart rate 2022-04-28 13:32:50 89 /min [facility] Body temperature 2022-04-28 13:32:50 36.89 Belinda [facility] Respiratory rate 2022-04-28 13:32:50 16 /min [facility] Oxygen saturation in Arterial blood by Pulse oximetry 2022-04-28 13:30:00 98 /min [facility] Body height 2022-04-28 13:28:00 172.7 cm [facility] Body weight 2022-04-28 13:28:00 95.255 kg [facility] BMI 2022-04-28 13:28:00 31.93 kg/m2 [facility] Systolic blood pressure 2022-04-25 15:50:00 120 mm[Hg] [facility] Diastolic blood pressure 2022-04-25 15:50:00 71 mm[Hg] [facility] Heart rate 2022-04-25 15:50:00 72 /min [facility] Body temperature 2022-04-25 15:50:00 36.06 Belinda [facility] Respiratory rate 2022-04-25 15:50:00 16 /min [facility] Body height 2022-04-25 15:50:00 171.5 cm [facility] Body weight 2022-04-25 15:50:00 95.845 kg [facility] BMI 2022-04-25 15:50:00 32.61 kg/m2 [facility] Oxygen saturation in Arterial blood by Pulse oximetry 2022-04-25 15:50:00 99 /min [facility] Systolic blood pressure 2022-04-20 16:41:00 126 mm[Hg] [facility] Diastolic blood pressure 2022-04-20 16:41:00 64 mm[Hg] [facility] Heart rate 2022-04-20 16:41:00 87 /min [facility] Body temperature 2022-04-20 16:41:00 37.06 Belinda [facility] Respiratory rate 2022-04-20 16:41:00 18 /min [facility] Body weight 2022-04-20 16:41:00 93.2 kg [facility] BMI 2022-04-20 16:41:00 32.18 kg/m2 [facility] Oxygen saturation in Arterial blood by Pulse oximetry 2022-04-20 16:41:00 98 /min [facility] Systolic blood pressure 2022-04-15 20:30:00 107 mm[Hg] [facility] Diastolic blood pressure 2022-04-15 20:30:00 67 mm[Hg] [facility] Heart rate 2022-04-15 20:30:00 86 /min [facility] Body temperature 2022-04-15 20:30:00 36.89 Belinda [facility] Respiratory rate 2022-04-15 20:30:00 18 /min [facility] Oxygen saturation in Arterial blood by Pulse oximetry 2022-04-15 20:30:00 96 /min [facility] Body weight 2022-04-15 01:08:00 101.651 kg [facility] BMI 2022-04-15 01:08:00 35.10 kg/m2 [facility] Body height 2022-04-11 19:54:00 170.2 cm [facility] Systolic blood pressure 2022-04-12 22:30:00 122 mm[Hg] [facility] Diastolic blood pressure 2022-04-12 22:30:00 84 mm[Hg] [facility] Heart rate 2022-04-12 22:30:00 83 /min [facility] Body temperature 2022-04-12 22:30:00 36.22 Belinda [facility] Respiratory rate 2022-04-12 22:30:00 14 /min [facility] Oxygen saturation in Arterial blood by Pulse oximetry 2022-04-12 22:30:00 98 /min [facility] Body weight 2022-04-12 14:00:00 101 kg [facility] BMI 2022-04-12 14:00:00 35.22 kg/m2 [facility] Body height 2022-04-11 19:54:00 170.2 cm [facility] Systolic blood pressure 2022-04-05 18:01:00 120 mm[Hg] [facility] Diastolic blood pressure 2022-04-05 18:01:00 68 mm[Hg] [facility] Heart rate 2022-04-05 18:01:00 72 /min [facility] Body temperature 2022-04-05 18:01:00 36.11 Belinda [facility] Respiratory rate 2022-04-05 18:01:00 16 /min [facility] Body height 2022-04-05 18:01:00 171.2 cm [facility] Body weight 2022-04-05 18:01:00 99.927 kg Ht & wt verified by Emmett RN & LAURA Yoon [facility] BMI 2022-04-05 18:01:00 34.09 kg/m2 [facility] Oxygen saturation in Arterial blood by Pulse oximetry 2022-04-05 18:01:00 97 /min [facility] Systolic blood pressure 2022-03-30 16:21:00 124 mm[Hg] [facility] Diastolic blood pressure 2022-03-30 16:21:00 71 mm[Hg] [facility] Heart rate 2022-03-30 16:21:00 70 /min [facility] Body height 2022-03-30 16:21:00 170.2 cm [facility] Body weight 2022-03-30 16:21:00 100.562 kg [facility] BMI 2022-03-30 16:21:00 34.72 kg/m2 [facility] Oxygen saturation in Arterial blood by Pulse oximetry 2022-03-30 16:21:00 97 /min [facility] Systolic blood pressure 2022-03-06 15:04:00 127 mm[Hg] [facility] Diastolic blood pressure 2022-03-06 15:04:00 76 mm[Hg] [facility] Heart rate 2022-03-06 15:04:00 68 /min [facility] Body height 2022-03-06 15:04:00 170.2 cm [facility] Body weight 2022-03-06 15:04:00 101.878 kg [facility] BMI 2022-03-06 15:04:00 35.18 kg/m2 [facility] Oxygen saturation in Arterial blood by Pulse oximetry 2022-03-06 15:04:00 98 /min [facility] Heart Rate 2023-10-19 21:01:00 96 /min [facility] ([facility]) Respiratory Rate 2023-10-19 21:01:00 16 /min [facility] ([facility]) BP Systolic 2023-10-19 21:01:00 147 mm[Hg] [facility] ([facility]) BP Diastolic 2023-10-19 21:01:00 103 mm[Hg] [facility] ([facility]) Pulse Rate 2023-10-19 20:02:00 101 /min [facility] ([facility]) O2% BldC Oximetry 2023-10-19 20:02:00 97 % [facility] ([facility]) Body Temperature 2023-10-19 17:30:00 98.5 [degF] [facility] ([facility]) Height 2023-10-19 17:30:00 68 [in_i] [facility] ([facility]) Weight 2023-10-19 17:30:00 118.63 kg [facility] ([facility]) BMI (Body Mass Index) 2023-10-19 17:30:00 40 kg/m2 [facility] ([facility]) Systolic blood pressure 2022-04-13 13:42:00 137 mm[Hg] [facility] Diastolic blood pressure 2022-04-13 13:42:00 72 mm[Hg] [facility] Heart rate 2022-04-13 13:42:00 76 /min [facility] Body temperature 2022-04-13 13:42:00 36.72 Belinda [facility] Respiratory rate 2022-04-13 13:42:00 16 /min [facility] Oxygen saturation in Arterial blood by Pulse oximetry 2022-04-13 13:42:00 98 /min [facility] Body weight 2022-04-13 00:40:00 102.014 kg [facility] BMI 2022-04-13 00:40:00 35.22 kg/m2 [facility] Body height 2022-04-11 19:54:00 170.2 cm [facility] Systolic blood pressure 2022-04-08 16:57:00 122 mm[Hg] [facility] Diastolic blood pressure 2022-04-08 16:57:00 72 mm[Hg] [facility] Heart rate 2022-04-08 16:57:00 72 /min [facility] Body temperature 2022-04-08 16:57:00 37 Belinda [facility] Respiratory rate 2022-04-08 16:57:00 16 /min [facility] Oxygen saturation in Arterial blood by Pulse oximetry 2022-04-08 16:57:00 98 /min [facility] Body weight 2022-04-08 00:51:00 99.247 kg [facility] BMI 2022-04-08 00:51:00 33.86 kg/m2 [facility] Body height 2022-04-05 23:01:00 171.2 cm [facility] BP Systolic 2022-02-15 17:15:00 162 mm[Hg] BP Diastolic 2022-02-15 17:15:00 90 mm[Hg] Weight Measured 2022-02-15 17:15:00 241.80 pounds Height Measured 2022-02-15 17:15:00 67.00 inches Body Temperature 2022-02-15 17:15:00 98.20 degrees Heart Rate 2022-02-15 17:15:00 88.00 /min Respiratory Rate 2022-02-15 17:15:00 16.00 /min BP Systolic 2022-02-15 16:38:00 162 mm[Hg] BP Diastolic 2022-02-15 16:38:00 90 mm[Hg] Weight Measured 2022-02-15 16:38:00 241.80 pounds Height Measured 2022-02-15 16:38:00 67.00 inches Body Temperature 2022-02-15 16:38:00 98.20 degrees Heart Rate 2022-02-15 16:38:00 88.00 /min Respiratory Rate 2022-02-15 16:38:00 16.00 /min BP Systolic 2021-05-29 13:20:00 BP Diastolic 2021-05-29 13:20:00 Weight Measured 2021-05-29 13:20:00 235.00 pounds Height Measured 2021-05-29 13:20:00 67.00 inches Body Temperature 2021-05-29 13:20:00 Heart Rate 2021-05-29 13:20:00 Respiratory Rate 2021-05-29 13:20:00 BP Systolic 2021-03-10 14:18:00 115 mm[Hg] BP Diastolic 2021-03-10 14:18:00 68 mm[Hg] Weight Measured 2021-03-10 14:18:00 236.60 pounds Height Measured 2021-03-10 14:18:00 67.00 inches Body Temperature 2021-03-10 14:18:00 98.60 degrees Heart Rate 2021-03-10 14:18:00 68.00 /min Respiratory Rate 2021-03-10 14:18:00 BP Systolic 2021-03-03 15:45:00 138 mm[Hg] BP Diastolic 2021-03-03 15:45:00 77 mm[Hg] Weight Measured 2021-03-03 15:45:00 234.80 pounds Height Measured 2021-03-03 15:45:00 67.00 inches Body Temperature 2021-03-03 15:45:00 99.40 degrees Heart Rate 2021-03-03 15:45:00 Respiratory Rate 2021-03-03 15:45:00 BP Systolic 2020-10-06 17:37:00 154 mm[Hg] BP Diastolic 2020-10-06 17:37:00 96 mm[Hg] Weight Measured 2020-10-06 17:37:00 231.20 pounds Height Measured 2020-10-06 17:37:00 67.00 inches Body Temperature 2020-10-06 17:37:00 99.10 degrees Heart Rate 2020-10-06 17:37:00 99.00 /min Respiratory Rate 2020-10-06 17:37:00 17.00 /min BP Diastolic 2020-09-30 15:47:00 88 mm[Hg] Weight Measured 2020-09-30 15:47:00 234.40 pounds Height Measured 2020-09-30 15:47:00 67.00 inches Body Temperature 2020-09-30 15:47:00 98.90 degrees Heart Rate 2020-09-30 15:47:00 90.00 /min Respiratory Rate 2020-09-30 15:47:00 16.00 /min BP Systolic 2020-09-30 15:47:00 151 mm[Hg] Procedures Procedure Date / Time Performed Performing Clinician Source POCT GLUCOSE (AUTOMATED) 2023-02-26 15:05:00 Frandy Umana [facility] COMP. METABOLIC PANEL ([id number]) 2023-01-24 15:14[facility] 2023-01-24 15:14:00 Dennys [facility] LACTATE DEHYDROGENASE 2022-12-28 05:32:00 Tye [facility] URIC ACID 2022-12-28 05:32:00 Tye [facility] MAGNESIUM 2022-12-28 05:32:00 Tye [facility] HEPATIC FUNCTION PANEL ([id number]) (ALB,T.PRO,BILI T,BU/BC,ALT,AST,ALK PHOS) 2022-12-28 05:32:00 Tye [facility] BASIC METABOLIC PANEL (NA, K , CL, CO2, GLUCOSE, BUN, CREATININE, CA) 2022-12-28 05:32:00 Tye [facility] CBC WITH DIFF 2022-12-28 05:32:00 Tye [facility] MRSA / MSSA SCREEN BY KIESHA VALENCIA 2022-12-28 05:32:00 Tye [facility] BLOOD CULTURE SCREEN 2022-12-28 00:52:00 Jim Sawyer [facility] ASSIGNMENT OF BENEFITS 2022-12-27 23:15:36 Doctor Unassigned, [place] [facility] CONSENT/REFUSAL FOR DIAGNOSI S AND TREATMENT 2022-12-27 23:15:08 Doctor Unassigned, [place] [facility] COMP. METABOLIC PANEL ([id number]) 2022-12-27 22:36:00 Jim Sawyer [facility] CBC WITH DIFF 2022-12-27 22:36:00 Jim Sawyer [facility] CONSENT/REFUSAL FOR DIAGNOSI S AND TREATMENT 2022-12-27 20:54:14 Doctor Unassigned, [place] [facility] PHOSPHORUS 2022-12-26 11:10:00 Long, Dasha [facility] URIC ACID 2022-12-26 11:10:00 Long, Dasha [facility] MAGNESIUM 2022-12-26 11:10:00 Long, Dasha [facility] COMP. METABOLIC PANEL ([id number]) 2022-12-26 11:10:00 Long, Dasha [facility] CBC WITH DIFF 2022-12-26 11:07:00 Long, Dasha [facility] PREPARE PLATELETS 2022-12-25 16:58:24 Long, Dasha [facility] PREPARE PACKED RBC 2022-12-25 13:44:51 Long, Dasha [facility] PHOSPHORUS 2022-12-25 09:47:00 Long, Dasha [facility] LACTATE DEHYDROGENASE 2022-12-25 09:47:00 Long, Dasha [facility] URIC ACID 2022-12-25 09:47:00 Long, Dasha [facility] MAGNESIUM 2022-12-25 09:47:00 Long, Dasha [facility] COMP. METABOLIC PANEL ([id number]) 2022-12-25 09:47:00 Long, Dasha [facility] CBC WITH DIFF 2022-12-25 09:47:00 Long, Dasha [facility] CBC WITH DIFF 2022-12-24 16:53:00 Long, Dasha [facility] HB HLA CLASS I AB HIGH DEFIN QUAL 2022-12-24 16:53:00 Long, Dasha [facility] PREPARE PLATELETS 2022-12-24 14:54:39 Long, Dasha [facility] PHOSPHORUS 2022-12-24 10:55:00 Long, [facility] LACTATE DEHYDROGENASE 2022-12-24 10:55:00 [facility]22-12-24 10:55:00 [facility] 2022-12-24 10:55:00 [facility] COMP. METABOLIC PANEL ([id number]) 2022-12-24 10:55:00 Long, [facility] CBC WITH DIFF 2022-12-24 10:55:00 Long, [facility] CBC WITH DIFF 2022-12-23 21:56[facility]00 [facility] 2022-12-23 20:39:55 Raquel Cadetarsha [facility] PHOSPHORUS 2022-12-23 11:21:00 [facility]GE[facility]SE 2022-12-23 11:21:00 Long, [facility] URIC ACID 2022-12-23 11:21:00 Long, Dasha [facility] MAGNESIUM 2022-12-23 11:21:00 Long, Dasha [facility] COMP. METABOLIC PANEL ([id number]) 2022-12-23 11:21:00 Long, [facility] CBC WITH DIFF 2022-12-23 11:21:00 Marek, [facility] TRANSFUSE PACKED RBC 2022-12-23 05:08:00 Tye [facility] PREPARE PACKED RBC 2022-12-23 04:55:42 Tye [facility] TRANSFUSE PLATELETS 2022-12-23 03:20:00 [facility] 2022-12-23 03:08:50 Cookie Gamble [facility] CBC WITH DIFF 2022-12-23 00:15:00 Dasha Jara [facility] TRANSFUSE PLATELETS 2022-12-22 22:47:00 LongDasha [facility] PREPARE PLATELETS 2022-12-22 22:35:34 [facility] 2022-12-22 20:20:00 Evon Brennan [facility] CT SINUS WO CONTRAST 2022-12-22 19:29:47 Dasha Jara [facility] TRANSFUSE PLATELETS 2022-12-22 17:35:00 Marek [facility] BLOOD CULTURE SCREEN 2022-12-22 17:01:00 [facility] 2022-12-22 16:54:00 LongDasha [facility] HB ABO GROUPING 2022-12-22 14:18:00 [facility]ACT[facility] DEHYDROGENASE 2022-12-22 11:21:00 Raquel Cade [facility] URIC ACID 2022-12-22 11:21[facility]-12-22 11:21[facility]00 [facility] COMP. METABOLIC PANEL ([id number]) 2022-12-22 11:21:00 [facility] CBC WITH DIFF 2022-12-22 11:21:00 [facility] TRANSFUSE PLATELETS 2022-12-21 15:10:00 Evon Brennan [facility] PREPARE PLATELETS 2022-12-21 14:54:05 Evon Brennan [facility] PHOSPHORUS 2022-12-21 10:55:00 [facility] LACTATE DEHYDROGENASE 2022-12-21 10:55:00 Long, Dasha [facility] URIC ACID 2022-12-21 10:55:00 Long, [facility] MAGNESIUM 2022-12-21 10:55:00 Long, Dasha [facility] COMP. METABOLIC PANEL ([id number]) 2022-12-21 10:55:00 Long, Dasha [facility] CBC WITH DIFF 2022-12-21 10:55:00 Long, Dasha [facility] TRANSFUSE PLATELETS 2022-12-20 17:32:00 Long, Dasha [facility] PREPARE PLATELETS 2022-12-20 17:00:39 Long, Dasha [facility] PHOSPHORUS 2022-12-20 11:29:00 Long, Dasha [facility] LACTATE DEHYDROGENASE 2022-12-20 11:29:00 Long, Dasha [facility] URIC ACID 2022-12-20 11:29:00 Long, Dasha [facility] MAGNESIUM 2022-12-20 11:29:00 Long, Dasha [facility] COMP. METABOLIC PANEL ([id number]) 2022-12-20 11:29:00 Long, Dasha [facility] CBC WITH DIFF 2022-12-20 11:29:00 Long, Dasha [facility] TRANSFUSE PLATELETS 2022-12-19 18:35:00 Long, Dasha [facility] PREPARE PLATELETS 2022-12-19 18:23:40 Long, Dasha [facility] PHOSPHORUS 2022-12-19 11:21:00 Long, Dasha [facility] LACTATE DEHYDROGENASE 2022-12-19 11:21:00 Long, Dasha [facility] URIC ACID 2022-12-19 11:21:00 Long, Dasha [facility] MAGNESIUM 2022-12-19 11:21:00 Long, Dasha [facility] COMP. METABOLIC PANEL ([id number]) 2022-12-19 11:21:00 MarekDasha Nicolest. m[facility] hospitaljuan pablo [facility] CBC WITH DIFF 2022-12-19 11:21:00 [facility]arekDasha [facility] TRANSFUSE PLATELETS 2022-12-18 19:06:00 Dasha Jara [facility] PREPARE PLATELETS 2022-12-18 18:47:50 Marek [facility] MAGNESIUM 2022-12-18 11:02:00 Rubén Bonner [facility] BASIC METABOLIC PANEL (NA, K , CL, CO2, GLUCOSE, BUN, CREATININE, CA) 2022-12-18 11:02:00 Rubén Bonner [facility] CBC WITH DIFF 2022-12-18 11:02:00 Rubén Bonner [facility] PREPARE PLATELETS 2022-12-17 15:21:50 Rubén Bonner [facility] PHOSPHORUS 2022-12-17 10:54:00 Rubén Bonner [facility] LACTATE DEHYDROGENASE 2022-12-17 10:54:00 Rubén Bonner [facility] URIC ACID 2022-12-17 10:54:00 Rubén Bonner [facility] MAGNESIUM 2022-12-17 10:54:00 Rubén Bonner [facility] COMP. METABOLIC PANEL ([id number]) 2022-12-17 10:54:00 Rubén Bonner [facility] CBC WITH DIFF 2022-12-17 10:54:00 Rubén Bonner [facility] HSV 1&2, VZV NAAT 2022-12-16 16:19:00 ObRubén victor. [facility] CBC WITHOUT DIFF 2022-12-16 16:16:00 Rubén Bonner [facility] TRANSFUSE PLATELETS 2022-12-16 15:00:00 Rubén Bonner [facility] PREPARE PLATELETS 2022-12-16 14:35:53 Rubén Bonner [facility] HB ECG ROUTINE & RHYTHM STRIP 2022-12-16 13:21:47 Rubén Bonner [facility] FUNGUS (BLOOD) CULTURE 2022-12-16 11:42:00 [facility] CMV BY QUANTITATIVE NAAT 2022-12-16 11:42:00 Torie Martinez [facility] MAGNESIUM 2022-12-16 09:26:00 [facility] HEPATIC FUNCTION PANEL ([id number]) (ALB,T.PRO,BILI T,BU/BC,ALT,AST,ALK PHOS) 2022-12-16 09:26:00 [facility] BASIC METABOLIC PANEL (NA, K , CL, CO2, GLUCOSE, BUN, CREATININE, CA) 2022-12-16 09:26:00 [facility] CBC WITH DIFF 2022-12-16 09:26:[address] [facility] [address] THORAX W CONTRAST 2022-12-16 05:46:03 [facility] CBC WITHOUT DIFF 2022-12-15 23:24:00 Gurinder Brennan [facility] TRANSFUSE PLATELETS 2022-12-15 18:35:00 [facility] PREPARE PLATELETS 2022-12-15 18:22:32 [facility] CBC WITH DIFF 2022-12-15 11:25:00 [facility] QUANTIFERON-TB ASSAY 2022-12-15 11:25:00 Gurinder Brennan [facility] QFT TB2 MINUS NIL 2022-12-15 11:25:00 Gurinder Brennan [facility] MAGNESIUM 2022-12-15 11:24:00 [facility] BASIC METABOLIC PANEL (NA, K , CL, CO2, GLUCOSE, BUN, CREATININE, CA) 2022-12-15 11:24:00 [facility] BLOOD CULTURE SCREEN 2022-12-14 21:50:00 Gurinder Brennan [facility] BLOOD CULTURE SCREEN 2022-12-14 21:41:00 Gurinder Brennan [facility] MISCELLANEOUS SEND OUT TEST 2022-12-14 21:41:00 Gurinder Brennan [facility] TRANSFUSE PLATELETS 2022-12-14 20:37:00 Rubén Bonner [facility] PREPARE PLATELETS 2022-12-14 20:16:47 [facility] HB ABO GROUPING 2022-12-14 17:47:00 [facility] PHOSPHORUS 2022-12-14 11:15:00 [facility] LACTATE DEHYDROGENASE 2022-12-14 11:15:00 [facility] URIC ACID 2022-12-14 11:15:00 [facility] MAGNESIUM 2022-12-14 11:15:00 Rubén Bonner [facility] BASIC METABOLIC PANEL (NA, K , CL, CO2, GLUCOSE, BUN, CREATININE, CA) 2022-12-14 11:15:00 Rubén Bonner [facility] CBC WITH DIFF 2022-12-14 11:15:00 Rubén Bonner [facility] CLOSTRIDIUM DIFFICILE TOXIN 2022-12-13 19:27:00 Rubén Bonner [facility] HAPTOGLOBIN, SERUM 2022-12-13 19:20:00 Rubén Bonner [facility] PHOSPHORUS 2022-12-13 10:47:00 Rubén Bonner [facility] LACTATE DEHYDROGENASE 2022-12-13 10:47:00 Rubén Bonner [facility] URIC ACID 2022-12-13 10:47:00 Rubén Bonner [facility] MAGNESIUM 2022-12-13 10:47:00 Rubén Bonner [facility] HEPATIC FUNCTION PANEL ([id number]) (ALB,T.PRO,BILI T,BU/BC,ALT,AST,ALK PHOS) 2022-12-13 10:47:00 Rubén Bonner [facility] BASIC METABOLIC PANEL (NA, K , CL, CO2, GLUCOSE, BUN, CREATININE, CA) 2022-12-13 10:47:00 Rubén Bonner [facility] CBC WITH DIFF 2022-12-13 10:47:00 Rubén Bonner [facility] VANCOMYCIN TROUGH 2022-12-13 00:53:00 Rubén Bonner [facility] GALV ONLY - INFLUENZA A B RS V PCR 2022-12-12 20:20:00 Rubén Bonner [facility] COVID-19 (ID NOW RAPID TESTING) 2022-12-12 20:20:00 Rubén Bonner [facility] LAB ONLY COVID INTERPRETATION 2022-12-12 20:20:00 Rubén Bonner [facility] CT ABDOMEN PELVIS W CONTRAST 2022-12-12 14:34:18 Rubén Bonner [facility] PHOSPHORUS 2022-12-12 11:24:00 Rubén Bonner [facility] LACTATE DEHYDROGENASE 2022-12-12 11:24:00 Rubén Bonner [facility] URIC ACID 2022-12-12 11:24:00 Rubén Bonner [facility] MAGNESIUM 2022-12-12 11:24:00 Rubén Bonner [facility] C-REACTIVE PROTEIN 2022-12-12 11:24:00 Rubén Bonner [facility] HEPATIC FUNCTION PANEL ([id number]) (ALB,T.PRO,BILI T,BU/BC,ALT,AST,ALK PHOS) 2022-12-12 11:24:00 Rubén Bonner [facility] COMP. METABOLIC PANEL ([id number]) 2022-12-12 11:24:00 Rubén Bonner [facility] SEDIMENTATION RATE 2022-12-12 11:24:00 Rubén Bonner [facility] CBC WITH DIFF 2022-12-12 11:24:00 Rubén Bonner [facility] URINALYSIS 2022-12-11 16:08:00 [facility] BLOOD CULTURE SCREEN 2022-12-11 15:59:00 Rubén Bonner [facility] METHOTREXATE 2022-12-11 15:59:00 Frandy Umana [facility] URINE CULTURE 2022-12-11 15:59:00 Rubén Bonner [facility] PHOSPHORUS 2022-12-11 10:10:00 [facility] LACTATE DEHYDROGENASE 2022-12-11 10:10:00 [facility] URIC ACID 2022-12-11 10:10:00 [facility] MAGNESIUM 2022-12-11 10:10:00 [facility] BASIC METABOLIC PANEL (NA, K , CL, CO2, GLUCOSE, BUN, CREATININE, CA) 2022-12-11 10:10:00 [facility] CBC WITH DIFF 2022-12-11 10:10:00 [facility] XR CHEST 1 VW 2022-12-11 02:18:00 [facility] BLOOD CULTURE SCREEN 2022-12-11 02:16:00 Torie Martinez [facility] URINALYSIS 2022-12-11 02:16:00 [facility] METHOTREXATE 2022-12-10 21:48:00 Frandy Umana [facility] PHOSPHORUS 2022-12-10 10:50:00 Kj [facility] LACTATE DEHYDROGENASE 2022-12-10 10:50:00 [facility] URIC ACID 2022-12-10 10:50:00 [facility] MAGNESIUM 2022-12-10 10:50:00 [facility] BASIC METABOLIC PANEL (NA, K , CL, CO2, GLUCOSE, BUN, CREATININE, CA) 2022-12-10 10:50:00 [facility] CBC WITH DIFF 2022-12-10 10:50:00 [facility] URINALYSIS 2022-12-10 00:37:00 Rubén Bonner [facility] PHOSPHORUS 2022-12-09 10:10:00 [facility] LACTATE DEHYDROGENASE 2022-12-09 10:10:00 [facility] URIC ACID 2022-12-09 10:10:00 Kj [facility] MAGNESIUM 2022-12-09 10:10:00 [facility] HEPATIC FUNCTION PANEL ([id number]) (ALB,T.PRO,BILI T,BU/BC,ALT,AST,ALK PHOS) 2022-12-09 10:10:00 [facility] BASIC METABOLIC PANEL (NA, K , CL, CO2, GLUCOSE, BUN, CREATININE, CA) 2022-12-09 10:10:00 Kj [facility] CBC WITH DIFF 2022-12-09 10:10:00 Kj [facility] PROTHROMBIN TIME / INR 2022-12-09 10:10:00 [facility] URINALYSIS 2022-12-09 10:00:00 Frandy Umana [facility] PH URINE 2022-12-08 15:55:00 [facility] URINALYSIS 2022-12-08 15:55:00 [facility] URINALYSIS 2022-12-08 09:13:00 Rubén Bonner [facility] PHOSPHORUS 2022-12-08 09:09:00 Rubén Bonner [facility] LACTATE DEHYDROGENASE 2022-12-08 09:09:00 Rubén Bonner [facility] URIC ACID 2022-12-08 09:09:00 Rubén Bonner [facility] MAGNESIUM 2022-12-08 09:09:00 Rubén Bonner [facility] COMP. METABOLIC PANEL ([id number]) 2022-12-08 09:09:00 Rubén Bonner [facility] CBC WITH DIFF 2022-12-08 09:09:00 Rubén Bonner [facility] PH URINE 2022-12-08 00:36:00 Manasa Emerson [facility] URINALYSIS 2022-12-07 16:52:00 Rubén Bonner [facility] HB ECG ROUTINE & RHYTHM STRIP 2022-12-07 13:22:06 Rubén Bonner [facility] PH URINE 2022-12-07 11:10:00 Martinez Vogt [facility] URINALYSIS 2022-12-07 11:10:00 Rubén Bonner [facility] PHOSPHORUS 2022-12-07 09:32:00 [facility] LACTATE DEHYDROGENASE 2022-12-07 09:32:00 [facility] 2022-12-07 09:32:00 [facility] MAGNESIUM 2022-12-07 09:32:00 [facility] BASIC METABOLIC PANEL (NA, K , CL, CO2, GLUCOSE, BUN, CREATININE, CA) 2022-12-07 09:32:00 [facility] CBC WITH DIFF 2022-12-07 09:32:00 [facility] XR KUB 2022-12-07 01:21:00 [facility] MAGNESIUM 2022-12-06 16:43:00 [facility] HEPATIC FUNCTION PANEL ([id number]) (ALB,T.PRO,BILI T,BU/BC,ALT,AST,ALK PHOS) 2022-12-06 16:43:00 [facility] BASIC METABOLIC PANEL (NA, K , CL, CO2, GLUCOSE, BUN, CREATININE, CA) 2022-12-06 16:43:00 [facility] CBC WITH DIFF 2022-12-06 16:43:00 [facility] MRSA / MSSA SCREEN BY PCRKIESHA 2022-12-06 16:43:00 [facility] PHOSPHORUS 2022-11-18 10:19:00 Kwaku isak [facility] LACTATE DEHYDROGENASE 2022-11-18 10:19:00 Kwaku isak [facility] URIC ACID 2022-11-18 10:19:00 Shanae Ames [facility] MAGNESIUM 2022-11-18 10:19:00 Shanae Ames [facility] BASIC METABOLIC PANEL (NA, K , CL, CO2, GLUCOSE, BUN, CREATININE, CA) 2022-11-18 10:19:00 Kwaku isak [facility] CBC WITH DIFF 2022-11-18 10:19:00 Kwaku isak [facility] PHOSPHORUS 2022-11-17 10:24:00 Kwaku [facility] LACTATE DEHYDROGENASE 2022-11-17 10:24:00 Butt, [facility] URIC ACID 2022-11-17 10:24:00 Butt, [facility] MAGNESIUM 2022-11-17 10:24:00 Butt, [facility] BASIC METABOLIC PANEL (NA, K , CL, CO2, GLUCOSE, BUN, CREATININE, CA) 2022-11-17 10:24:00 Butt, [facility] CBC WITH DIFF 2022-11-17 10:24:00 Butt, [facility] PHOSPHORUS 2022-11-16 10:37:00 Butt, [facility] LACTATE DEHYDROGENASE 2022-11-16 10:37:00 Butt, [facility] URIC ACID 2022-11-16 10:37:00 Butt, [facility] MAGNESIUM 2022-11-16 10:37:00 [facility], [facility] BASIC METABOLIC PANEL (NA, K , CL, CO2, GLUCOSE, BUN, CREATININE, CA) 2022-11-16 10:37:00 Butt, [facility] CBC WITH DIFF 2022-11-16 10:37:00 Butt, [facility] PHOSPHORUS 2022-11-15 10:50:00 Butt, [facility] LACTATE DEHYDROGENASE 2022-11-15 10:50:00 Butt, [facility] URIC ACID 2022-11-15 10:50:00 Butt, [facility] MAGNESIUM 2022-11-15 10:50:00 Butt, [facility] BASIC METABOLIC PANEL (NA, K , CL, CO2, GLUCOSE, BUN, CREATININE, CA) 2022-11-15 10:50:00 Butt, [facility] CBC WITH DIFF 2022-11-15 10:50:00 [facility], [facility] TRANSTHORACIC ECHO (TTE) COMPLETE 2022-11-14 15:51:00 Kwaku, [facility] PHOSPHORUS 2022-11-14 09:41:00 Butt, [facility] LACTATE DEHYDROGENASE 2022-11-14 09:41:00 Butt, [facility] URIC ACID 2022-11-14 09:41:00 [facility], [facility] MAGNESIUM 2022-11-14 09:41:00 [facility], [facility] BASIC METABOLIC PANEL (NA, K , CL, CO2, GLUCOSE, BUN, CREATININE, CA) 2022-11-14 09:41:00 [facility], [facility] CBC WITH DIFF 2022-11-14 09:41:00 [facility], [facility] PHOSPHORUS 2022-11-13 09:38:00 [facility], [facility] LACTATE DEHYDROGENASE 2022-11-13 09:38:00 [facility], [facility] URIC ACID 2022-11-13 09:38:00 [facility], [facility] MAGNESIUM 2022-11-13 09:38:00 [facility], [facility] BASIC METABOLIC PANEL (NA, K , CL, CO2, GLUCOSE, BUN, CREATININE, CA) 2022-11-13 09:38:00 [facility], [facility] CBC WITH DIFF 2022-11-13 09:38:00 [facility], [facility] CT ABDOMEN PELVIS W CONTRAST 2022-11-13 03:13:16 [facility], [facility] CT THORAX W CONTRAST 2022-11-13 03:13:16 [facility], [facility] PHOSPHORUS 2022-11-12 22:44:00 [facility], [facility] LACTATE DEHYDROGENASE 2022-11-12 22:44:00 [facility], [facility] URIC ACID 2022-11-12 22:44:00 [facility], [facility] HEPATIC FUNCTION PANEL ([id number]) (ALB,T.PRO,BILI T,BU/BC,ALT,AST,ALK PHOS) 2022-11-12 22:44:00 [facility], [facility] BASIC METABOLIC PANEL (NA, K , CL, CO2, GLUCOSE, BUN, CREATININE, CA) 2022-11-12 22:44:00 Shanae Ames [facility] CBC WITH DIFF 2022-11-12 22:44:00 Shanae Ames [facility] PROTHROMBIN TIME / INR 2022-11-12 22:44:00 Shanae Ames [facility] ACTIVATED PARTIAL THRMPLAS ROSALIND 2022-11-12 22:44:00 Shanae Ames [facility] MRSA / MSSA SCREEN BY KIESHA VALENCIA 2022-11-12 22:44:00 Shanae Ames [facility] HB ECG ROUTINE & RHYTHM STRIP 2022-11-12 22:41:24 Shanae Ames [facility] NOTICE OF PRIVACY PRACTICES 2022-10-12 01:11:30 Doctor Unassigned, [place] [facility] ASSIGNMENT OF BENEFITS 2022-10-10 14:46:44 Doctor Unassigned, [place] [facility] CONSENT/REFUSAL FOR DIAGNOSI S AND TREATMENT 2022-09-28 13:51:25 Doctor Unassigned, [place] [facility] ASSIGNMENT OF BENEFITS 2022-09-19 15:10:35 Doctor Unassigned, [place] [facility] US ABDOMEN LIMITED 2022-08-24 20:16:59 Frandy Umana [facility] ASSIGNMENT OF BENEFITS 2022-07-24 15:31:41 Doctor Unassigned, [place] [facility] PHOSPHORUS 2022-07-17 11:51:00 Tayo Grossman [facility] LACTATE DEHYDROGENASE 2022-07-17 11:51:00 Rayo [facility] URIC ACID 2022-07-17 11:51:00 Chintan Cade [facility] MAGNESIUM 2022-07-17 11:51:00 Tayo Grossman [facility] HEPATIC FUNCTION PANEL ([id number]) (ALB,T.PRO,BILI T,BU/BC,ALT,AST,ALK PHOS) 2022-07-17 11:51:00 Rayo [facility] BASIC METABOLIC PANEL (NA, K , CL, CO2, GLUCOSE, BUN, CREATININE, CA) 2022-07-17 11:51:00 Tayo Grossman [facility] IRON PANEL 2022-07-17 11:51:00 Chintan Cade [facility] CBC WITH DIFF 2022-07-17 11:51:00 Tayo Grossman [facility] PHOSPHORUS 2022-07-16 18:19:00 MikaEvon Adrian [facility] LACTATE DEHYDROGENASE 2022-07-16 18:19:00 MikaEvon Adrian [facility] URIC ACID 2022-07-16 18:19:00 MikaEvon [facility] MAGNESIUM 2022-07-16 18:19:00 MikaEvon [facility] FERRITIN SERUM 2022-07-16 18:19:00 [facility] 2022-07-16 18:19:00 Rayo [facility] FOLATE 2022-07-16 18:19:00 Rayo [facility] HEPATIC FUNCTION PANEL ([id number]) (ALB,T.PRO,BILI T,BU/BC,ALT,AST,ALK PHOS) 2022-07-16 18:19:00 Mika Evon [facility] BASIC METABOLIC PANEL (NA, K , CL, CO2, GLUCOSE, BUN, CREATININE, CA) 2022-07-16 18:19:00 Mika Evon [facility] CBC WITH DIFF 2022-07-16 18:19:00 Mika Evon [facility] PROTHROMBIN TIME / INR 2022-07-16 18:19:00 Mika Evon [facility] ACTIVATED PARTIAL THRMPLAS ROSALIND 2022-07-16 18:19:00 Mika Evon [facility] MRSA / MSSA SCREEN BY PCR, KIESHA 2022-07-16 18:19:00 Mika Evon [facility] PHOSPHORUS 2022-07-12 21:07:00 Frandy Umana [facility] GAMMA GLUTAMYLTRANSFERASE 2022-07-12 21:07:00 Frandy Umana [facility] LACTATE DEHYDROGENASE 2022-07-12 21:07:00 Frandy Umana [facility] URIC ACID 2022-07-12 21:07:00 Frandy Umana [facility] MAGNESIUM 2022-07-12 21:07:00 Frandy Umana [facility] HEPATIC FUNCTION PANEL ([id number]) (ALB,T.PRO,BILI T,BU/BC,ALT,AST,ALK PHOS) 2022-07-12 21:07:00 Frandy Umana [facility] BASIC METABOLIC PANEL (NA, K , CL, CO2, GLUCOSE, BUN, CREATININE, CA) 2022-07-12 21:07:00 Frandy Umana [facility] CBC WITH DIFF 2022-07-12 21:07:00 Frandy Umana [facility] CONSENT/REFUSAL FOR DIAGNOSI S AND TREATMENT 2022-07-05 15:43:29 Doctor Unassigned, [place] [facility] LACTATE DEHYDROGENASE 2022-07-02 10:33:00 [facility] URIC ACID 2022-07-02 10:33:00 Ros[facility] MAGNESIUM 2022-07-02 10:33:00 [facility] COMP. METABOLIC PANEL ([id number]) 2022-07-02 10:33:00 [facility] CBC WITH DIFF 2022-07-02 10:33:00 [facility] HB ABO GROUPING 2022-07-01 22:00:00 [facility] TRANSFUSE PLATELETS 2022-07-01 16:00:00 [facility] PREPARE PLATELETS 2022-07-01 15:49:14 [facility] PHOSPHORUS 2022-07-01 11:38:00 [facility] LACTATE DEHYDROGENASE 2022-07-01 11:38:00 [facility] URIC ACID 2022-07-01 11:38:00 [facility] MAGNESIUM 2022-07-01 11:38:00 [facility] COMP. METABOLIC PANEL ([id number]) 2022-07-01 11:38:00 [facility] CBC WITH DIFF 2022-07-01 11:38:00 [facility] TRANSFUSE PLATELETS 2022-06-30 16:42:00 [facility] PREPARE PLATELETS 2022-06-30 16:22:00 [facility] LACTATE DEHYDROGENASE 2022-06-30 11:15:00 [facility] URIC ACID 2022-06-30 11:15:00 [facility] MAGNESIUM 2022-06-30 11:15:00 [facility] COMP. METABOLIC PANEL ([id number]) 2022-06-30 11:15:00 [facility] CBC WITH DIFF 2022-06-30 11:15:00 [facility] TRANSFUSE PACKED RBC 2022-06-29 16:05:00 [facility] PREPARE PACKED RBC 2022-06-29 15:49:44 [facility] TRANSFUSE PLATELETS 2022-06-29 15:07:00 [facility] PREPARE PLATELETS 2022-06-29 14:27:59 [facility] LACTATE DEHYDROGENASE 2022-06-29 11:09:00 [facility] URIC ACID 2022-06-29 11:09:00 [facility] MAGNESIUM 2022-06-29 11:09:00 [facility] COMP. METABOLIC PANEL ([id number]) 2022-06-29 11:09:00 [facility] CBC WITH DIFF 2022-06-29 11:09:00 [facility] TRANSFUSE PLATELETS 2022-06-28 16:50:00 [facility] PREPARE PLATELETS 2022-06-28 16:29:10 [facility] LACTATE DEHYDROGENASE 2022-06-28 10:04:00 [facility] URIC ACID 2022-06-28 10:04:00 [facility] MAGNESIUM 2022-06-28 10:04:00 [facility] COMP. METABOLIC PANEL ([id number]) 2022-06-28 10:04:00 [facility] CBC WITH DIFF 2022-06-28 10:04:00 [facility] TRANSFUSE PACKED RBC 2022-06-27 16:57:00 [facility] PREPARE PACKED RBC 2022-06-27 16:39:54 [facility] TRANSFUSE PLATELETS 2022-06-27 15:30:00 [facility] PREPARE PLATELETS 2022-06-27 15:14:12 [facility] HB ABO GROUPING 2022-06-27 13:10:00 [facility] LACTATE DEHYDROGENASE 2022-06-27 10:54:00 [facility] URIC ACID 2022-06-27 10:54:00 [facility] MAGNESIUM 2022-06-27 10:54:00 [facility] COMP. METABOLIC PANEL ([id number]) 2022-06-27 10:54:00 [facility] CBC WITH DIFF 2022-06-27 10:54:00 [facility] URINALYSIS 2022-06-26 19:29:00 Be Malhotra [facility] URINE CULTURE 2022-06-26 19:29:00 Be Malhotra [facility] XR CHEST 1 VW 2022-06-26 18:15:00 Be Malhotra [facility] BLOOD CULTURE SCREEN 2022-06-26 17:52:00 [facility] URIC ACID 2022-06-26 11:49:00 Tayo Grossman [facility] MAGNESIUM 2022-06-26 11:49:00 Tayo Grossman [facility] BASIC METABOLIC PANEL (NA, K , CL, CO2, GLUCOSE, BUN, CREATININE, CA) 2022-06-26 11:49:00 Tayo Grossman [facility] CBC WITH DIFF 2022-06-26 11:49:00 Tayo Grossman [facility] HB ECG ROUTINE & RHYTHM STRIP 2022-06-26 03:01:46 Yrn Morrow [facility] TRANSFUSE PLATELETS 2022-06-25 21:45:00 Tayo Grossman [facility] PREPARE PLATELETS 2022-06-25 21:18:47 Tayo Grossman [facility] TRANSFUSE PACKED RBC 2022-06-25 16:00:00 Tayo Grossman [facility] PREPARE PACKED RBC 2022-06-25 15:34:46 Tayo Grossman [facility] LACTATE DEHYDROGENASE 2022-06-25 11:54:00 [facility]ID 2022-06-25 11:54:00 [facility] MAGNESIUM 2022-06-25 11:54:00 Roscoe [facility] COMP. METABOLIC PANEL ([id number]) 2022-06-25 11:54:00 Roscoe [facility] CBC WITH DIFF 2022-06-25 11:54:00 Roscoe [facility] URIC ACID 2022-06-24 12:16:00 Zern, [facility] COMP. METABOLIC PANEL ([id number]) 2022-06-24 12:16:00 Zern, [facility] CBC WITH DIFF 2022-06-24 12:14:00 Zern, [facility] VANCOMYCIN TROUGH 2022-06-23 22:38:00 Zern, [facility] CBC WITHOUT DIFF 2022-06-23 22:38:00 Zern, [facility] TRANSFUSE PACKED RBC 2022-06-23 16:42:00 Zern, [facility] PREPARE PACKED RBC 2022-06-23 16:14:44 Zern, [facility] HB ABO GROUPING 2022-06-23 14:45:00 Zern, [facility] PHOSPHORUS 2022-06-23 11:57:00 Zern, [facility] URIC ACID 2022-06-23 11:57:00 Be Malhotra [facility] COMP. METABOLIC PANEL ([id number]) 2022-06-23 11:57:00 Be Malhotra [facility] CBC WITH DIFF 2022-06-23 11:57:00 Roscoe [facility] LACTATE DEHYDROGENASE 2022-06-22 10:53:00 Juann [facility] URIC ACID 2022-06-22 10:53:00 Lane, [facility] COMP. METABOLIC PANEL ([id number]) 2022-06-22 10:53:00 Zern, [facility] CBC WITH DIFF 2022-06-22 10:53:00 Lane [facility] URINALYSIS 2022-06-21 18:04:00 Lionel Norton [facility] METHOTREXATE 2022-06-21 17:35:00 Lionel Norton [facility] THROAT CULTURE 2022-06-21 17:31:00 Lane [facility] RAPID STREP SCREEN FOR GROUP A 2022-06-21 17:31:00 Lane [facility] URIC ACID 2022-06-21 11:55:00 Lane [facility] COMP. METABOLIC PANEL ([id number]) 2022-06-21 11:55:00 Lane [facility] CBC WITH DIFF 2022-06-21 11:55:00 Donna Terrazas [facility] METHOTREXATE 2022-06-21 02:25:00 Lionel Norton [facility] CYTO SPINAL FLUID 2022-06-20 21:21:00 Donna Terrazas [facility] THROAT CULTURE 2022-06-20 19:34:00 Lane [facility] GALV ONLY - INFLUENZA A B RS V PCR 2022-06-20 19:34:00 Lane [facility] URINE CULTURE 2022-06-20 17:31:00 Lane [facility] COVID-19 (ID NOW RAPID TESTING) 2022-06-20 17:31:00 Lane [facility] LAB ONLY COVID INTERPRETATION 2022-06-20 17:31:00 Lane [facility] BLOOD CULTURE SCREEN 2022-06-20 17:08:00 Lane [facility] XR CHEST 1 VW 2022-06-20 15:36:00 Lane [facility] URINALYSIS 2022-06-20 14:48:00 Lionel Norton [facility] PHOSPHORUS 2022-06-20 10:54:00 Flomot [facility] LACTATE DEHYDROGENASE 2022-06-20 10:54:00 [facility] URIC ACID 2022-06-20 10:54:00 [facility] MAGNESIUM 2022-06-20 10:54:00 [facility] COMP. METABOLIC PANEL ([id number]) 2022-06-20 10:54:00 [facility] CBC WITH DIFF 2022-06-20 10:54:00 [facility] METHOTREXATE 2022-06-20 03:04:00 Lionel Norton [facility] URINALYSIS 2022-06-20 01:34:00 Lionel Norton [facility] CYTO SPINAL FLUID 2022-06-19 21:07:00 Donna Terrazas [facility] URINALYSIS 2022-06-19 12:33:00 [facility] PHOSPHORUS 2022-06-19 10:17:00 [facility] LACTATE DEHYDROGENASE 2022-06-19 10:17:00 [facility] URIC ACID 2022-06-19 10:17:00 [facility] MAGNESIUM 2022-06-19 10:17:00 [facility] COMP. METABOLIC PANEL ([id number]) 2022-06-19 10:17:00 [facility] CBC WITH DIFF 2022-06-19 10:17:00 [facility] HEPATITIS C VIRUS GENOTYPE 2022-06-19 10:17:00 Aaorn [facility] URINALYSIS 2022-06-19 01:50:00 [facility] METHOTREXATE 2022-06-19 01:26:00 Cierra [facility] MISCELLANEOUS SEND OUT TEST 2022-06-18 23:26:00 [facility] URINALYSIS 2022-06-18 16:23:00 Lionel Norton [facility] URINALYSIS 2022-06-18 10:14:00 [facility] PHOSPHORUS 2022-06-18 10:13:00 [facility] LACTATE DEHYDROGENASE 2022-06-18 10:13:00 [facility] URIC ACID 2022-06-18 10:13:00 [facility] MAGNESIUM 2022-06-18 10:13:00 [facility] COMP. METABOLIC PANEL (33302) 2022-06-18 10:13:00 [facility] CBC WITH DIFF 2022-06-18 10:13:00 [facility] [facility] HEPATITIS B CORE ANTIBODY IGM 2022-06-18 10:13:00 [facility] URINALYSIS 2022-06-18 05:22:00 [facility] METHOTREXATE 2022-06-18 02:15:00 Og Sherwood [facility] ALPHA FETOPROTEIN 2022-06-18 01:17:00 [facility] EXTRA TUBE RED 2022-06-18 01:17:00 Og Sherwood [facility] URINALYSIS 2022-06-17 23:47:00 [facility] URINALYSIS 2022-06-17 14:57:00 Cierra Lionel [facility] LACTATE DEHYDROGENASE 2022-06-17 10:39:00 [facility] URIC ACID 2022-06-17 10:39:00 [facility] COMP. METABOLIC PANEL ([id number]) 2022-06-17 10:39:00 [facility] CBC WITH DIFF 2022-06-17 10:39:00 [facility] URINALYSIS 2022-06-17 04:06:00 Lionel Norton [facility] CBC WITHOUT DIFF 2022-06-17 04:05:00 [facility] TRANSFUSE PACKED RBC 2022-06-16 23:20:00 [facility] PREPARE PACKED RBC 2022-06-16 22:59:44 [facility] HB ABO GROUPING 2022-06-16 20:32:00 [facility] CT ABDOMEN PELVIS W CONTRAST 2022-06-16 19:00:37 [facility] CT THORAX W CONTRAST 2022-06-16 19:00:37 [facility] URINALYSIS 2022-06-16 16:42:00 Carson Maurer [facility] PHOSPHORUS 2022-06-16 10:09:00 [facility] URIC ACID 2022-06-16 10:09:00 [facility] MAGNESIUM 2022-06-16 10:09:00 [facility] COMP. METABOLIC PANEL ([id number]) 2022-06-16 10:09:00 [facility] CBC WITH DIFF 2022-06-16 10:09:00 [facility] URINALYSIS 2022-06-16 10:09:00 Erasto [facility] HEPATITIS C VIRUS (HCV) BY QUANTITATIVE NAAT 2022-06-16 10:09:00 Lionel Norton [facility] HB ECG ROUTINE & RHYTHM STRIP 2022-06-15 20:17:37 [facility] PHOSPHORUS 2022-06-15 16:50:00 [facility] LACTATE DEHYDROGENASE 2022-06-15 16:50:00 [facility] URIC ACID 2022-06-15 16:50:00 [facility] MAGNESIUM 2022-06-15 16:50[facility] ([id number]) (ALB,T.PRO,BILI T,BU/BC,ALT,AST,ALK PHOS) 2022-06-15 16:50:00 [facility] BASIC METABOLIC PANEL (NA, K , CL, CO2, GLUCOSE, BUN, CREATININE, CA) 2022-06-15 16:50:00 [facility] CBC WITH DIFF 2022-06-15 [facility] S[facility] BY KIESHA VALENCIA 2022-06-15 16:50:00 [facility] BODY FLUID DIRECT COUNT 2022-05-29 21:30:00 Manasa Emerson [facility] POCT GLUCOSE (AUTOMATED) 2022-05-29 14:03:00 Carson Goddard [facility] PHOSPHORUS 2022-05-29 10:24:00 Hortencia [facility] LACTATE DEHYDROGENASE 2022-05-29 10:24:00 Hortencia [facility] URIC ACID 2022-05-29 10:24:00 Hortencia [facility] MAGNESIUM 2022-05-29 10:24:00 Hortencia [facility] COMP. METABOLIC PANEL ([id number]) 2022-05-29 10:24:00 Hortencia [facility] CBC WITH DIFF 2022-05-29 10:24:00 Hortencia [facility] POCT GLUCOSE (AUTOMATED) 2022-05-29 01:35:00 [facility] 2022-05-28 22:08:00 [facility] FL[facility] DIRECT COUNT 2022-05-28 19:15:00 Manasa Emerson [facility] CYTO SPINAL FLUID 2022-05-28 19:15:00 Manasa Emerson [facility] POCT GLUCOSE (AUTOMATED) 2022-05-28 18:14:00 [facility]SE (AUTOMATED) 2022-05-28 14:24:00 Carson Goddard [facility] PHOSPHORUS 2022-05-28 10:39:00 Sushma Mota [facility] LACTATE DEHYDROGENASE 2022-05-28 10:39:00 Hortencia [facility] URIC ACID 2022-05-28 10:39:00 Hortencia [facility] COMP. METABOLIC PANEL ([id number]) 2022-05-28 10:39:00 Hortencia [facility] CBC WITH DIFF 2022-05-28 10:39:00 Hortencia [facility] POCT GLUCOSE (AUTOMATED) 2022-05-28 02:18:00 [facility]UCOSE (AUTOMATED) 2022-05-27 23:22:00 NitzaCarson [facility] POCT GLUCOSE (AUTOMATED) 2022-05-27 18:33:00 Carson Goddard [facility] PHOSPHORUS 2022-05-27 09:44:00 [facility] 2022-05-27 09:44:00 Hortencia [facility] URIC ACID 2022-05-27 09:44:00 Hortencia [facility] COMP. METABOLIC PANEL ([id number]) 2022-05-27 09:44:00 Hortencia [facility] CBC WITH DIFF 2022-05-27 09:44:00 Hortencia [facility] PHOSPHORUS 2022-05-26 11:09:00 Mota, [facility] LACTATE DEHYDROGENASE 2022-05-26 11:09:00 Mota, [facility] URIC ACID 2022-05-26 11:09:00 Mota, [facility] MAGNESIUM 2022-05-26 11:09:00 Mota, [facility] HEPATIC FUNCTION PANEL ([id number]) (ALB,T.PRO,BILI T,BU/BC,ALT,AST,ALK PHOS) 2022-05-26 11:09:00 Mota, [facility] BASIC METABOLIC PANEL (NA, K , CL, CO2, GLUCOSE, BUN, CREATININE, CA) 2022-05-26 11:09:00 Mota, [facility] CBC WITH DIFF 2022-05-26 11:09:00 Mota, [facility] HB ABO GROUPING 2022-05-25 19:05:00 Mota, [facility] PHOSPHORUS 2022-05-25 18:02:00 Mota, [facility] LACTATE DEHYDROGENASE 2022-05-25 18:02:00 Mota, [facility] URIC ACID 2022-05-25 18:02:00 Mota, [facility] MAGNESIUM 2022-05-25 18:02:00 Mota, [facility] HEPATIC FUNCTION PANEL ([id number]) (ALB,T.PRO,BILI T,BU/BC,ALT,AST,ALK PHOS) 2022-05-25 18:02:00 [facility], [facility] BASIC METABOLIC PANEL (NA, K , CL, CO2, GLUCOSE, BUN, CREATININE, CA) 2022-05-25 18:02:00 [facility], [facility] CBC WITH DIFF 2022-05-25 18:02:00 [facility], [facility] MRSA / MSSA SCREEN BY PCR, KIESHA 2022-05-25 18:02:00 [facility], [facility] HOSPITAL ADMISSION 2022-05-25 06:01:00 Doctor Unassigned, Aquadale [facility] URINALYSIS 2022-05-08 11:33:00 Frandy Umana [facility] PHOSPHORUS 2022-05-08 11:28:00 Rocio Liang [facility] LACTATE DEHYDROGENASE 2022-05-08 11:28:00 [facility] 2022-05-08 11:28:00 Rocio Liang [facility] MAGNESIUM 2022-05-08 11:28:00 [facility] COMP. METABOLIC PANEL ([id number]) 2022-05-08 11:28:00 Rocio Liang [facility] METHOTREXATE 2022-05-08 11:28:00 Frandy Umana [facility] CBC WITH DIFF 2022-05-08 11:28:00 Rocio Liang [facility] URINALYSIS 2022-05-07 13:51:00 Frandy Umana [facility] METHOTREXATE 2022-05-07 13:37:00 Frandy Umana [facility] EXTRA TUBE RED 2022-05-07 13:37:00 Og Sherwood [facility] PHOSPHORUS 2022-05-07 10:58:00 Rocio Liang [facility] LACTATE DEHYDROGENASE 2022-05-07 10:58:00 Gorman-Shahid, [facility] 2022-05-07 10:58:00 [facility] MAGN[facility]UM 2022-05-07 10:58:00 Garth [facility] COMP. METABOLIC PANEL ([id number]) 2022-05-07 10:58:00 [facility] CBC WITH DIFF 2022-05-07 10:58:00 [facility] URIN[facility]IS 2022-05-06 14:38:00 Frandy Umana [facility] METHOTREXATE 2022-05-06 14:37:00 Frandy Umana [facility] BLOOD UREA NITROGEN 2022-05-06 12:15:00 Bran Hill [facility] CREATININE 2022-05-06 12:15:00 Bran [facility] POTASSIUM SERUM 2022-05-06 12:15:00 Bran Hill [facility] CALCIUM 2022-05-06 12:15:00 Bran Hill [facility] PHOSPHORUS 2022-05-06 12:15:00 Bran [facility] LACTATE DEHYDROGENASE 2022-05-06 12:15:00 [facility] URIC ACID 2022-05-06 12:15:00 [facility] CBC WITH DIFF 2022-05-06 12:15:00 Bran Hill [facility] HEPATIC FUNCTION PANEL ([id number]) (ALB,T.PRO,BILI T,BU/BC,ALT,AST,ALK PHOS) 2022-05-05 14:40:00 Donna Terrazas [facility] URINALYSIS 2022-05-05 14:40:00 Frandy Umana [facility] BLOOD UREA NITROGEN 2022-05-05 09:15:00 Hill Sotomayor [facility] CREATININE 2022-05-05 09:15:00 [facility] POTASSIUM SERUM 2022-05-05 09:15:00 Hill Sotomayor [facility] CALCIUM 2022-05-05 09:15:00 Hill Sotomayor [facility] PHOSPHORUS 2022-05-05 09:15:00 Hill Sotomayor [facility] LACTATE DEHYDROGENASE 2022-05-05 09:15:00 Bran Hill [facility] URIC ACID 2022-05-05 09:15:00 Bran Hill [facility] CBC WITH DIFF 2022-05-05 09:15:00 Bran Hill [facility] URINE 2022-05-05 09:08:00 Mota [facility] URINE 2022-05-05 04:15:00 Svetlana [facility] POCT GLUCOSE (AUTOMATED) 2022-05-05 01:43:00 Ulices Alvarez [facility] URINE 2022-05-05 00:15:00 Mota, [facility] URINALYSIS 2022-05-04 17:38:00 Frandy Umana [facility] VITAMIN D, 25-OH 2022-05-04 17:38:00 Bran Hill [facility] URINE 2022-05-04 10:53:00 Svetlana [facility] BLOOD UREA NITROGEN 2022-05-04 10:52:00 [facility] CREATININE 2022-05-04 10:52:00 [facility] POTASSIUM SERUM 2022-05-04 10:52:00 [facility] CALCIUM 2022-05-04 10:52:00 [facility] PHOSPHORUS 2022-05-04 10:52:00 [facility] LACTATE DEHYDROGENASE 2022-05-04 10:52:00 [facility] URIC ACID 2022-05-04 10:52:00 [facility] CBC WITH DIFF 2022-05-04 10:52:00 [facility] PH URINE 2022-05-04 04:17:00 [facility] PH URINE 2022-05-03 20:12:00 [facility] CYTO SPINAL FLUID 2022-05-03 18:58:00 [facility] URINALYSIS 2022-05-03 15:08:00 Frandy Umana [facility] BLOOD UREA NITROGEN 2022-05-03 11:12:00 Hill Sotomayor [facility] CREATININE 2022-05-03 11:12:00 [facility] POTASSIUM SERUM 2022-05-03 11:12:00 Bran Hill [facility] CALCIUM 2022-05-03 11:12:00 Bran Hill [facility] PHOSPHORUS 2022-05-03 11:12:00 [facility] LACTATE DEHYDROGENASE 2022-05-03 11:12:00 [facility] URIC ACID 2022-05-03 11:12:00 Bran Hill [facility] CBC WITH DIFF 2022-05-03 11:12:00 [facility] PHOSPHORUS 2022-05-02 11:01:00 Rocio Liang [facility] MAGNESIUM 2022-05-02 11:01:00 [facility] HEPATIC FUNCTION PANEL ([id number]) (ALB,T.PRO,BILI T,BU/BC,ALT,AST,ALK PHOS) 2022-05-02 11:01:00 Hill Sotomayor [facility] BASIC METABOLIC PANEL (NA, K , CL, CO2, GLUCOSE, BUN, CREATININE, CA) 2022-05-02 11:01:00 Rocio Liang [facility] CBC WITH DIFF 2022-05-02 11:01:00 Rocio Liang [facility] HB ECG ROUTINE & RHYTHM STRIP 2022-05-01 13:37:43 [facility] 2022-05-01 10:55:00 Dasha Jara [facility] MAGNESIUM 2022-05-01 10:55:00 [facility] COMP. METABOLIC PANEL ([id number]) 2022-05-01 10:55:00 [facility] CBC WITH DIFF 2022-05-01 10:55:[facility]ACIAL/MANDIBLE W CONTRAST 2022-05-01 04:04:06 [facility] WITHOUT DIFF 2022-04-30 19:43:00 [facility] CLOSTRIDIUM DIFFICILE TOXIN 2022-04-30 14:57:00 [facility] FECAL PATHOGENS BY PCR 2022-04-30 14:57:00 [facility] BLOOD CULTURE SCREEN 2022-04-30 14:55:00 [facility] PHOSPHORUS 2022-04-30 11:44:00 [facility] LACTATE DEHYDROGENASE 2022-04-30 11:44:00 [facility] URIC ACID 2022-04-30 11:44:00 [facility] MAGNESIUM 2022-04-30 11:44:00 [facility] COMP. METABOLIC PANEL ([id number]) 2022-04-30 11:44:00 [facility] DIFF CONSULT INTERPRETATION 2022-04-30 11:44:00 [facility] WITH DIFF 2022-04-30 11:44:00 [facility] HEPATIC FUNCTION PANEL ([id number]) (ALB,T.PRO,BILI T,BU/BC,ALT,AST,ALK PHOS) 2022-04-30 03:48:00 [facility] BASIC METABOLIC PANEL (NA, K , CL, CO2, GLUCOSE, BUN, CREATININE, CA) 2022-04-30 03:48:00 [facility] CBC WITH DIFF 2022-04-30 03:48:00 [facility] PROTHROMBIN TIME / INR 2022-04-30 03:48:00 [facility] ACTIVATED PARTIAL THRMPLAS ROSALIND 2022-04-30 03:48:00 [facility] HB ECG ROUTINE & RHYTHM STRIP 2022-04-30 03:04:18 [facility] MRSA / MSSA SCREEN BY PCR, NARES 2022-04-30 02:57:00 Torsten Walker [facility] COVID-19 (ID NOW RAPID TESTING) 2022-04-30 02:57:00 Torsten Walker [facility] LAB ONLY COVID INTERPRETATION 2022-04-30 02:57:00 Torsten Walker [facility] HOSPITAL ADMISSION 2022-04-29 05:01:00 Doctor Unassigned, Aquadale [facility] CONSENT/REFUSAL FOR DIAGNOSI S AND TREATMENT 2022-04-28 13:24:14 Doctor Unassigned, [place] [facility] PHOSPHORUS 2022-04-25 17:00:00 Frandy Umana [facility] GAMMA GLUTAMYLTRANSFERASE 2022-04-25 17:00:00 Frandy Umana [facility] LACTATE DEHYDROGENASE 2022-04-25 17:00:00 Farndy Umana [facility] URIC ACID 2022-04-25 17:00:00 Frandy Umana [facility] MAGNESIUM 2022-04-25 17:00:00 Frandy Umana [facility] HEPATIC FUNCTION PANEL ([id number]) (ALB,T.PRO,BILI T,BU/BC,ALT,AST,ALK PHOS) 2022-04-25 17:00:00 Frandy Umana [facility] BASIC METABOLIC PANEL (NA, K , CL, CO2, GLUCOSE, BUN, CREATININE, CA) 2022-04-25 17:00:00 Frandy Umana [facility] CBC WITH DIFF 2022-04-25 17:00:00 Frandy Umana [facility] LACTATE DEHYDROGENASE 2022-04-20 17:38:00 Salazar Alvarez [facility] URIC ACID 2022-04-20 17:38:00 [facility] COMP. METABOLIC PANEL ([id number]) 2022-04-20 17:38:00 [facility]FF 2022-04-20 17:38:00 [facility] PHOSPHORUS 2022-04-15 10:51:00 Hill Sotomayor [facility] LACTATE DEHYDROGENASE 2022-04-15 10:51:00 Hill Sotomayor [facility] URIC ACID 2022-04-15 10:51:00 [facility] MAGNESIUM 2022-04-15 10:51:00 [facility] IONIZED CALCIUM 2022-04-15 10:51:00 [facility] BASIC METABOLIC PANEL (NA, K , CL, CO2, GLUCOSE, BUN, CREATININE, CA) 2022-04-15 10:51:00 [facility] CBC WITH DIFF 2022-04-15 10:51:00 [facility] DUPLEX VENOUS LEG RIGHT - BY VASCULAR LAB 2022-04-14 20:06:43 Rocio Liang [facility] LACTATE DEHYDROGENASE 2022-04-14 09:44:00 Felix [facility] URIC ACID 2022-04-14 09:44:00 Felix [facility] IONIZED CALCIUM 2022-04-14 09:44:00 Felix [facility] BASIC METABOLIC PANEL (NA, K , CL, CO2, GLUCOSE, BUN, CREATININE, CA) 2022-04-14 09:44:00 Felix [facility] CBC WITHOUT DIFF 2022-04-14 09:44:00 Felix [facility] CBC WITH DIFF 2022-04-14 09:44:00 Monalisa [facility] CYTO SPINAL FLUID 2022-04-13 17:30:00 Monalisa [facility] PROTHROMBIN TIME / INR 2022-04-13 15:57:00 Felix [facility] PROTHROMBIN TIME / INR 2022-04-13 15:57:00 Felix [facility] PROTHROMBIN TIME / INR 2022-04-13 15:57:00 Felix [facility] PHOSPHORUS 2022-04-13 10:42:00 Noy Isaac [facility] LACTATE DEHYDROGENASE 2022-04-13 10:42:00 Samai, [facility] URIC ACID 2022-04-13 10:42:00 Noy Isaac [facility] MAGNESIUM 2022-04-13 10:42:00 [facility] IONIZED CALCIUM 2022-04-13 10:42:00 Marlin karissa [facility] HEPATIC FUNCTION PANEL ([id number]) (ALB,T.PRO,BILI T,BU/BC,ALT,AST,ALK PHOS) 2022-04-13 10:42:00 Noy Isaac [facility] BASIC METABOLIC PANEL (NA, K , CL, CO2, GLUCOSE, BUN, CREATININE, CA) 2022-04-13 10:42:00 Marlin [facility] CBC WITH DIFF 2022-04-13 10:42:00 Marlin [facility] MAGNESIUM 2022-04-13 10:42:00 Marlin karissa [facility] BASIC METABOLIC PANEL (NA, K , CL, CO2, GLUCOSE, BUN, CREATININE, CA) 2022-04-13 10:42:00 [facility] WITH DIFF 2022-04-13 10:42:00 Marlin [facility] PHOSPHORUS 2022-04-13 10:42:00 Marlin [facility] IONIZED CALCIUM 2022-04-13 10:42:00 Marlin [facility] LACTATE DEHYDROGENASE 2022-04-13 10:42:00 [facility] URIC ACID 2022-04-13 10:42:00 Marlin [facility] HEPATIC FUNCTION PANEL ([id number]) (ALB,T.PRO,BILI T,BU/BC,ALT,AST,ALK PHOS) 2022-04-13 10:42:00 Marlin [facility] PHOSPHORUS 2022-04-13 10:42:00 Marlin [facility] LACTATE DEHYDROGENASE 2022-04-13 10:42:00 Noy Isaac [facility] URIC ACID 2022-04-13 10:42:00 Noy Isaac [facility] MAGNESIUM 2022-04-13 10:42:00 Noy Isaac [facility] IONIZED CALCIUM 2022-04-13 10:42:00 Marlin karissa [facility] HEPATIC FUNCTION PANEL ([id number]) (ALB,T.PRO,BILI T,BU/BC,ALT,AST,ALK PHOS) 2022-04-13 10:42:00 Noy Isaac [facility] BASIC METABOLIC PANEL (NA, K , CL, CO2, GLUCOSE, BUN, CREATININE, CA) 2022-04-13 10:42:00 Noy Isaac [facility] CBC WITH DIFF 2022-04-13 10:42:00 [facility] HEAD WO CONTRAST 2022-04-12 23:47:00 Alfredo Christian [facility] CT HEAD WO CONTRAST 2022-04-12 23:47:00 Alfredo Christian [facility] CT HEAD WO CONTRAST 2022-04-12 23:47:00 Alfredo Christian [facility] INTUBATION 2022-04-12 21:13:00 Clinton Valle [facility] OMAYA RESEVOIR INSERTION/PLACEMENT 2022-04-12 20:06:00 Roshan Madrid [facility] OMAYA RESEVOIR INSERTION/PLACEMENT 2022-04-12 20:06:00 Roshan Madrid [facility] OMAYA RESEVOIR INSERTION/PLACEMENT 2022-04-12 20:06:00 Roshan Madrid [facility] ABORH CONFIRMATION (LAB ONLY) 2022-04-12 10:55:00 Micheal [facility] ABORH CONFIRMATION (LAB ONLY) 2022-04-12 10:55:00 Micheal Luc [facility] ABORH CONFIRMATION (LAB ONLY) 2022-04-12 10:55:00 Luc Burton [facility] LACTATE DEHYDROGENASE 2022-04-12 10:36:00 Noy Isaac [facility] URIC ACID 2022-04-12 10:36:00 Noy Isaac [facility] MAGNESIUM 2022-04-12 10:36:00 Marlin karissa [facility] HEPATIC FUNCTION PANEL ([id number]) (ALB,T.PRO,BILI T,BU/BC,ALT,AST,ALK PHOS) 2022-04-12 10:36:00 Noy Isaac [facility] BASIC METABOLIC PANEL (NA, K , CL, CO2, GLUCOSE, BUN, CREATININE, CA) 2022-04-12 10:36:00 GloryOmar [facility] CBC WITH DIFF 2022-04-12 10:36:00 GloryOmar [facility] PROTHROMBIN TIME / INR 2022-04-12 10:36:00 GloryOmar [facility] ACTIVATED PARTIAL THRMPLAS ROSALIND 2022-04-12 10:36:00 GloryOmar [facility] CBC WITH DIFF 2022-04-12 10:36:00 GloryOmar [facility] BASIC METABOLIC PANEL (NA, K , CL, CO2, GLUCOSE, BUN, CREATININE, CA) 2022-04-12 10:36:00 GloryOmar [facility] PROTHROMBIN TIME / INR 2022-04-12 10:36:00 GloryOmar [facility] ACTIVATED PARTIAL THRMPLAS ROSALIND 2022-04-12 10:36:00 Micheal [facility] MAGNESIUM 2022-04-12 10:36:00 Noy Isaac [facility] HEPATIC FUNCTION PANEL ([id number]) (ALB,T.PRO,BILI T,BU/BC,ALT,AST,ALK PHOS) 2022-04-12 10:36:00 Marlin karissa [facility] LACTATE DEHYDROGENASE 2022-04-12 10:36:00 Noy Isaac [facility] URIC ACID 2022-04-12 10:36:00 Marlin karissa [facility] LACTATE DEHYDROGENASE 2022-04-12 10:36:00 Noy Isaac [facility] URIC ACID 2022-04-12 10:36:00 Noy Isaac [facility] MAGNESIUM 2022-04-12 10:36:00 [facility] HEPATIC FUNCTION PANEL ([id number]) (ALB,T.PRO,BILI T,BU/BC,ALT,AST,ALK PHOS) 2022-04-12 10:36:00 Noy Isaac [facility] BASIC METABOLIC PANEL (NA, K , CL, CO2, GLUCOSE, BUN, CREATININE, CA) 2022-04-12 10:36:00 Micheal [facility] CBC WITH DIFF 2022-04-12 10:36:00 Micheal [facility] PROTHROMBIN TIME / INR 2022-04-12 10:36:00 Micheal [facility] ACTIVATED PARTIAL THRMPLAS ROSALIND 2022-04-12 10:36:00 Micheal [facility] HB ABO GROUPING 2022-04-12 10:30:00 Micheal [facility] HB ABO GROUPING 2022-04-12 10:30:00 Micheal [facility] HB ABO GROUPING 2022-04-12 10:30:00 Micheal [facility] HB ECG ROUTINE & RHYTHM STRIP 2022-04-11 15:56:56 Micheal [facility] XR CHEST 1 VW 2022-04-11 14:09:00 Micheal [facility] XR CHEST 1 2022-04-11 14:09:00 Micheal [facility] XR CHEST 1 2022-04-11 14:09:00 Micheal [facility] LACTATE DEHYDROGENASE 2022-04-11 10:44:00 Tye [facility] URIC ACID 2022-04-11 10:44:00 Tye [facility] MAGNESIUM 2022-04-11 10:44:00 Tye [facility] HEPATIC FUNCTION PANEL ([id number]) (ALB,T.PRO,BILI T,BU/BC,ALT,AST,ALK PHOS) 2022-04-11 10:44:00 Tye [facility] BASIC METABOLIC PANEL (NA, K , CL, CO2, GLUCOSE, BUN, CREATININE, CA) 2022-04-11 10:44:00 Tye [facility] CBC WITH DIFF 2022-04-11 10:44:00 Tye [facility] CBC WITH DIFF 2022-04-11 10:44:00 Tye [facility] BASIC METABOLIC PANEL (NA, K , CL, CO2, GLUCOSE, BUN, CREATININE, CA) 2022-04-11 10:44:00 Tye [facility] MAGNESIUM 2022-04-11 10:44:00 Tye [facility] URIC ACID 2022-04-11 10:44:00 Tye [facility] LACTATE DEHYDROGENASE 2022-04-11 10:44:00 Tye [facility] HEPATIC FUNCTION PANEL ([id number]) (ALB,T.PRO,BILI T,BU/BC,ALT,AST,ALK PHOS) 2022-04-11 10:44:00 Tye [facility] LACTATE DEHYDROGENASE 2022-04-11 10:44:00 Tye [facility] URIC ACID 2022-04-11 10:44:00 Tye [facility] MAGNESIUM 2022-04-11 10:44:00 Tye [facility] HEPATIC FUNCTION PANEL ([id number]) (ALB,T.PRO,BILI T,BU/BC,ALT,AST,ALK PHOS) 2022-04-11 10:44:00 Tye [facility] BASIC METABOLIC PANEL (NA, K , CL, CO2, GLUCOSE, BUN, CREATININE, CA) 2022-04-11 10:44:00 Tye [facility] CBC WITH DIFF 2022-04-11 10:44:00 Tye, [facility] PROTHROMBIN TIME / INR 2022-04-10 22:23:00 Tye, [facility] PROTHROMBIN TIME / INR 2022-04-10 22:23:00 Tye, [facility] PROTHROMBIN TIME / INR 2022-04-10 22:23:00 Tye, [facility] LACTATE DEHYDROGENASE 2022-04-10 10:39:00 Tye, [facility] URIC ACID 2022-04-10 10:39:00 Tye, [facility] MAGNESIUM 2022-04-10 10:39:00 Tye, [facility] HEPATIC FUNCTION PANEL ([id number]) (ALB,T.PRO,BILI T,BU/BC,ALT,AST,ALK PHOS) 2022-04-10 10:39:00 Tye, [facility] BASIC METABOLIC PANEL (NA, K , CL, CO2, GLUCOSE, BUN, CREATININE, CA) 2022-04-10 10:39:00 Tye, [facility] CBC WITH DIFF 2022-04-10 10:39:00 Tye, [facility] LACTATE DEHYDROGENASE 2022-04-10 10:39:00 Tye, [facility] CBC WITH DIFF 2022-04-10 10:39:00 Tye, [facility] BASIC METABOLIC PANEL (NA, K , CL, CO2, GLUCOSE, BUN, CREATININE, CA) 2022-04-10 10:39:00 Tye, [facility] MAGNESIUM 2022-04-10 10:39:00 Tye, [facility] HEPATIC FUNCTION PANEL ([id number]) (ALB,T.PRO,BILI T,BU/BC,ALT,AST,ALK PHOS) 2022-04-10 10:39:00 Tye, [facility] URIC ACID 2022-04-10 10:39:00 Tye, [facility] LACTATE DEHYDROGENASE 2022-04-10 10:39:00 Tye, [facility] URIC ACID 2022-04-10 10:39:00 Tye [facility] MAGNESIUM 2022-04-10 10:39:00 Tye [facility] HEPATIC FUNCTION PANEL ([id number]) (ALB,T.PRO,BILI T,BU/BC,ALT,AST,ALK PHOS) 2022-04-10 10:39:00 Tye [facility] BASIC METABOLIC PANEL (NA, K , CL, CO2, GLUCOSE, BUN, CREATININE, CA) 2022-04-10 10:39:00 Tye [facility] CBC WITH DIFF 2022-04-10 10:39:00 Tye [facility] PHOSPHORUS 2022-04-09 10:27:00 Hill Sotomayor [facility] LACTATE DEHYDROGENASE 2022-04-09 10:27:00 Tye [facility] URIC ACID 2022-04-09 10:27:00 Carson Peace [facility] MAGNESIUM 2022-04-09 10:27:00 Carson Peace [facility] IONIZED CALCIUM 2022-04-09 10:27:00 Carson Peace [facility] HEPATIC FUNCTION PANEL ([id number]) (ALB,T.PRO,BILI T,BU/BC,ALT,AST,ALK PHOS) 2022-04-09 10:27:00 Carson Peace [facility] BASIC METABOLIC PANEL (NA, K , CL, CO2, GLUCOSE, BUN, CREATININE, CA) 2022-04-09 10:27:00 Carson Peace [facility] CBC WITH DIFF 2022-04-09 10:27:00 Carson Peace [facility] EXTRA TUBE LT. GREEN 2022-04-09 10:27:00 Ulices Alvarez [facility] LACTATE DEHYDROGENASE 2022-04-09 10:27:00 Tye [facility] CBC WITH DIFF 2022-04-09 10:27:00 Carson Peace [facility] BASIC METABOLIC PANEL (NA, K , CL, CO2, GLUCOSE, BUN, CREATININE, CA) 2022-04-09 10:27:00 Carson Peace [facility] MAGNESIUM 2022-04-09 10:27:00 Carson Peace [facility] HEPATIC FUNCTION PANEL ([id number]) (ALB,T.PRO,BILI T,BU/BC,ALT,AST,ALK PHOS) 2022-04-09 10:27:00 Carson Peace [facility] IONIZED CALCIUM 2022-04-09 10:27:00 Carson Peace [facility] URIC ACID 2022-04-09 10:27:00 Carson Peace [facility] PHOSPHORUS 2022-04-09 10:27:00 Hill Sotomayor [facility] EXTRA TUBE LT. GREEN 2022-04-09 10:27:00 Ulices Alvarez [facility] PHOSPHORUS 2022-04-09 10:27:00 Hill Sotomayor [facility] LACTATE DEHYDROGENASE 2022-04-09 10:27:00 Cookie Gamble [facility] URIC ACID 2022-04-09 10:27:00 Carson Peace [facility] MAGNESIUM 2022-04-09 10:27:00 Carson Peace [facility] IONIZED CALCIUM 2022-04-09 10:27:00 Carson Peace [facility] HEPATIC FUNCTION PANEL ([id number]) (ALB,T.PRO,BILI T,BU/BC,ALT,AST,ALK PHOS) 2022-04-09 10:27:00 Carson Peace [facility] BASIC METABOLIC PANEL (NA, K , CL, CO2, GLUCOSE, BUN, CREATININE, CA) 2022-04-09 10:27:00 Carson Peace [facility] CBC WITH DIFF 2022-04-09 10:27:00 Carson Peace [facility] EXTRA TUBE LT. GREEN 2022-04-09 10:27:00 Ulices Alvarez [facility] HB ECG ROUTINE & RHYTHM STRIP 2022-04-08 19:26:33 Carson Peace [facility] HB ECG ROUTINE & RHYTHM STRIP 2022-04-08 19:26:33 Carson Peace [facility] HB ECG ROUTINE & RHYTHM STRIP 2022-04-08 19:26:33 Carson Peace [facility] LACTATE DEHYDROGENASE 2022-04-08 09:49:00 Tye [facility] URIC ACID 2022-04-08 09:49:00 Tye [facility] MAGNESIUM 2022-04-08 09:49:00 Tye [facility] BASIC METABOLIC PANEL (NA, K , CL, CO2, GLUCOSE, BUN, CREATININE, CA) 2022-04-08 09:49:00 Tye [facility] CBC WITH DIFF 2022-04-08 09:49:00 Tye [facility] CBC WITH DIFF 2022-04-08 09:49:00 Tye [facility] BASIC METABOLIC PANEL (NA, K , CL, CO2, GLUCOSE, BUN, CREATININE, CA) 2022-04-08 09:49:00 Tye [facility] MAGNESIUM 2022-04-08 09:49:00 Tye [facility] LACTATE DEHYDROGENASE 2022-04-08 09:49:00 Tye [facility] URIC ACID 2022-04-08 09:49:00 Tye [facility] LACTATE DEHYDROGENASE 2022-04-08 09:49:00 Tye [facility] URIC ACID 2022-04-08 09:49:00 Tye [facility] MAGNESIUM 2022-04-08 09:49:00 Tye [facility] BASIC METABOLIC PANEL (NA, K , CL, CO2, GLUCOSE, BUN, CREATININE, CA) 2022-04-08 09:49:00 Tye [facility] CBC WITH DIFF 2022-04-08 09:49:00 Tye [facility] LACTATE DEHYDROGENASE 2022-04-07 09:30:00 Tye [facility] URIC ACID 2022-04-07 09:30:00 Tye [facility] MAGNESIUM 2022-04-07 09:30:00 Tye, [facility] IONIZED CALCIUM 2022-04-07 09:30:00 Tye, [facility] HEPATIC FUNCTION PANEL ([id number]) (ALB,T.PRO,BILI T,BU/BC,ALT,AST,ALK PHOS) 2022-04-07 09:30:00 Tye [facility] BASIC METABOLIC PANEL (NA, K , CL, CO2, GLUCOSE, BUN, CREATININE, CA) 2022-04-07 09:30:00 Tye [facility] CBC WITH DIFF 2022-04-07 09:30:00 Tye [facility] HAV ANTIBODY (IGG AND IGM) 2022-04-07 09:30:00 Billy [facility] CBC WITH DIFF 2022-04-07 09:30:00 Tye [facility] BASIC METABOLIC PANEL (NA, K , CL, CO2, GLUCOSE, BUN, CREATININE, CA) 2022-04-07 09:30:00 Tye [facility] MAGNESIUM 2022-04-07 09:30:00 Tye [facility] URIC ACID 2022-04-07 09:30:00 Tye [facility] LACTATE DEHYDROGENASE 2022-04-07 09:30:00 Tye [facility] HEPATIC FUNCTION PANEL ([id number]) (ALB,T.PRO,BILI T,BU/BC,ALT,AST,ALK PHOS) 2022-04-07 09:30:00 Tye [facility] IONIZED CALCIUM 2022-04-07 09:30:00 Tye [facility] HAV ANTIBODY (IGG AND IGM) 2022-04-07 09:30:00 Billy [facility] LACTATE DEHYDROGENASE 2022-04-07 09:30:00 Tye [facility] URIC ACID 2022-04-07 09:30:00 Tye, [facility] MAGNESIUM 2022-04-07 09:30:00 Tye [facility] IONIZED CALCIUM 2022-04-07 09:30:00 Tye [facility] HEPATIC FUNCTION PANEL ([id number]) (ALB,T.PRO,BILI T,BU/BC,ALT,AST,ALK PHOS) 2022-04-07 09:30:00 Tye [facility] BASIC METABOLIC PANEL (NA, K , CL, CO2, GLUCOSE, BUN, CREATININE, CA) 2022-04-07 09:30:00 Tye [facility] CBC WITH DIFF 2022-04-07 09:30:00 Tye [facility] HAV ANTIBODY (IGG AND IGM) 2022-04-07 09:30:00 Alfredo Jaffe [facility] RETROPERITONEAL LIMITED 2022-04-07 09:16:23 Tye [facility] RETROPERITONEAL LIMITED 2022-04-07 09:16:23 Tye [facility] RETROPERITONEAL LIMITED 2022-04-07 09:16:23 Tye [facility] URIC ACID 2022-04-07 01:57:00 Tye [facility] IONIZED CALCIUM 2022-04-07 01:57:00 Tye [facility] BASIC METABOLIC PANEL (NA, K , CL, CO2, GLUCOSE, BUN, CREATININE, CA) 2022-04-07 01:57:00 Tye [facility] URIC ACID 2022-04-07 01:57:00 Tye [facility] IONIZED CALCIUM 2022-04-07 01:57:00 Tye [facility] BASIC METABOLIC PANEL (NA, K , CL, CO2, GLUCOSE, BUN, CREATININE, CA) 2022-04-07 01:57:00 Tye [facility] URIC ACID 2022-04-07 01:57:00 Tye [facility] IONIZED CALCIUM 2022-04-07 01:57:00 Tye [facility] BASIC METABOLIC PANEL (NA, K , CL, CO2, GLUCOSE, BUN, CREATININE, CA) 2022-04-07 01:57:00 Tye [facility] URIC ACID 2022-04-07 01:46:00 Tye [facility] BASIC METABOLIC PANEL (NA, K , CL, CO2, GLUCOSE, BUN, CREATININE, CA) 2022-04-07 01:46:00 Tye [facility] BASIC METABOLIC PANEL (NA, K , CL, CO2, GLUCOSE, BUN, CREATININE, CA) 2022-04-07 01:46:00 Tye [facility] URIC ACID 2022-04-07 01:46:00 Tye [facility] URIC ACID 2022-04-07 01:46:00 Tye [facility] BASIC METABOLIC PANEL (NA, K , CL, CO2, GLUCOSE, BUN, CREATININE, CA) 2022-04-07 01:46:00 Tye [facility] XR CHEST 1 VW 2022-04-06 21:40:57 Carson Peace [facility] XR CHEST 1 VW 2022-04-06 21:40:57 Carson Peace [facility] XR CHEST 1 VW 2022-04-06 21:40:57 Carson Peace [facility] URIC ACID 2022-04-06 19:31:00 Tye [facility] IONIZED CALCIUM 2022-04-06 19:31:00 Tye [facility] BASIC METABOLIC PANEL (NA, K , CL, CO2, GLUCOSE, BUN, CREATININE, CA) 2022-04-06 19:31:00 Tye [facility] HEPATITIS C VIRUS (HCV) BY QUANTITATIVE NAAT 2022-04-06 19:31:00 Tye [facility] BASIC METABOLIC PANEL (NA, K , CL, CO2, GLUCOSE, BUN, CREATININE, CA) 2022-04-06 19:31:00 Tye [facility] URIC ACID 2022-04-06 19:31:00 Tye, [facility] IONIZED CALCIUM 2022-04-06 19:31:00 Tye [facility] HEPATITIS C VIRUS (HCV) BY QUANTITATIVE NAAT 2022-04-06 19:31:00 Tye [facility] URIC ACID 2022-04-06 19:31:00 Tye [facility] IONIZED CALCIUM 2022-04-06 19:31:00 Tye [facility] BASIC METABOLIC PANEL (NA, K , CL, CO2, GLUCOSE, BUN, CREATININE, CA) 2022-04-06 19:31:00 Tye [facility] HEPATITIS C VIRUS (HCV) BY QUANTITATIVE NAAT 2022-04-06 19:31:00 Tye [facility] TRANSTHORACIC ECHO (TTE) COMPLETE 2022-04-06 14:56:40 Yuridia [facility] TRANSTHORACIC ECHO (TTE) COMPLETE 2022-04-06 14:56:40 Yuridia [facility] TRANSTHORACIC ECHO (TTE) COMPLETE 2022-04-06 14:56:40 Yuridia [facility] CT HEAD WO CONTRAST 2022-04-06 14:11:33 Octavio Peng [facility] CT HEAD WO CONTRAST 2022-04-06 14:11:33 Octavio Peng [facility] CT HEAD WO CONTRAST 2022-04-06 14:11:33 Octavio Peng [facility] LACTATE DEHYDROGENASE 2022-04-06 11:07:00 Yuridia [facility] URIC ACID 2022-04-06 11:07:00 Yuridia [facility] MAGNESIUM 2022-04-06 11:07:00 Yuridia [facility] IONIZED CALCIUM 2022-04-06 11:07:00 Tye [facility] HEPATIC FUNCTION PANEL ([id number]) (ALB,T.PRO,BILI T,BU/BC,ALT,AST,ALK PHOS) 2022-04-06 11:07:00 Tye [facility] BASIC METABOLIC PANEL (NA, K , CL, CO2, GLUCOSE, BUN, CREATININE, CA) 2022-04-06 11:07:00 Yuridia, [facility] CBC WITH DIFF 2022-04-06 11:07:00 Stackmakenna, [facility] CBC WITH DIFF 2022-04-06 11:07:00 Yuridia, [facility] BASIC METABOLIC PANEL (NA, K , CL, CO2, GLUCOSE, BUN, CREATININE, CA) 2022-04-06 11:07:00 Yuridia, [facility] MAGNESIUM 2022-04-06 11:07:00 Stackmakenna, [facility] URIC ACID 2022-04-06 11:07:00 Yuridia, [facility] LACTATE DEHYDROGENASE 2022-04-06 11:07:00 Yuridia, [facility] HEPATIC FUNCTION PANEL ([id number]) (ALB,T.PRO,BILI T,BU/BC,ALT,AST,ALK PHOS) 2022-04-06 11:07:00 Tye [facility] IONIZED CALCIUM 2022-04-06 11:07:00 Tye [facility] LACTATE DEHYDROGENASE 2022-04-06 11:07:00 Yuridai [facility] URIC ACID 2022-04-06 11:07:00 Yuridia, [facility] MAGNESIUM 2022-04-06 11:07:00 Yuridia, [facility] IONIZED CALCIUM 2022-04-06 11:07:00 Tye [facility] HEPATIC FUNCTION PANEL ([id number]) (ALB,T.PRO,BILI T,BU/BC,ALT,AST,ALK PHOS) 2022-04-06 11:07:00 Tye [facility] BASIC METABOLIC PANEL (NA, K , CL, CO2, GLUCOSE, BUN, CREATININE, CA) 2022-04-06 11:07:00 Yuridia [facility] CBC WITH DIFF 2022-04-06 11:07:00 Yuridia [facility] MR ABDOMEN W WO CONTRAST 2022-04-06 09:10:00 Tye [facility] MR ABDOMEN W WO CONTRAST 2022-04-06 09:10:00 Tye, [facility] MR ABDOMEN W WO CONTRAST 2022-04-06 09:10:00 Tye [facility] BASIC METABOLIC PANEL (NA, K , CL, CO2, GLUCOSE, BUN, CREATININE, CA) 2022-04-06 04:55:00 Tye [facility] BASIC METABOLIC PANEL (NA, K , CL, CO2, GLUCOSE, BUN, CREATININE, CA) 2022-04-06 04:55:00 Tye [facility] BASIC METABOLIC PANEL (NA, K , CL, CO2, GLUCOSE, BUN, CREATININE, CA) 2022-04-06 04:55:00 Tye [facility] URINALYSIS 2022-04-05 23:28:00 Yuridia [facility] URINE CULTURE 2022-04-05 23:28:00 Tye [facility] URINALYSIS 2022-04-05 23:28:00 Yuridia [facility] URINE CULTURE 2022-04-05 23:28:00 Tye [facility] URINALYSIS 2022-04-05 23:28:00 Yuridia [facility] URINE CULTURE 2022-04-05 23:28:00 Tye [facility] BLOOD CULTURE SCREEN 2022-04-05 23:18:00 Tye [facility] BLOOD CULTURE SCREEN 2022-04-05 23:18:00 Tye [facility] BLOOD CULTURE SCREEN 2022-04-05 23:18:00 Tye [facility] BLOOD CULTURE SCREEN 2022-04-05 23:07:00 Tye [facility] G6PD SCREENING TEST 2022-04-05 23:07:00 Donna Terrazas [facility] PROTHROMBIN TIME / INR 2022-04-05 23:07:00 Tye [facility] MRSA / MSSA SCREEN BY PCR, [facility] 2022-04-05 23:07:00 Yuridia [facility] MRSA / MSSA SCREEN BY PCR [facility] 2022-04-05 23:07:00 Yuridia [facility] G6PD SCREENING TEST 2022-04-05 23:07:00 Donna Terrazas [facility] BLOOD CULTURE SCREEN 2022-04-05 23:07:00 Tye [facility] PROTHROMBIN TIME / INR 2022-04-05 23:07:00 Tye [facility] BLOOD CULTURE SCREEN 2022-04-05 23:07:00 Tye [facility] G6PD SCREENING TEST 2022-04-05 23:07:00 Donna Terrazas [facility] PROTHROMBIN TIME / INR 2022-04-05 23:07:00 Tye [facility] MRSA / MSSA SCREEN BY PCR [facility] 2022-04-05 23:07:00 Yuridia [facility] HB ECG ROUTINE & RHYTHM STRIP 2022-04-05 22:42:23 Yuridia [facility] HB ECG ROUTINE & RHYTHM STRIP 2022-04-05 22:42:23 Yuridia [facility] HB ECG ROUTINE & RHYTHM STRIP 2022-04-05 22:42:23 Yuridia [facility] ALPHA FETOPROTEIN 2022-04-05 19:46:00 [facility] 2022-04-05 19:46:00 Frandy Umana [facility] GAMMA GLUTAMYLTRANSFERASE 2022-04-05 19:46:00 Frandy Umana [facility] URIC ACID 2022-04-05 19:46:00 Frandy Umana [facility] MAGNESIUM 2022-04-05 19:46:00 Frandy Umana [facility] HEPATIC FUNCTION PANEL ([id number]) (ALB,T.PRO,BILI T,BU/BC,ALT,AST,ALK PHOS) 2022-04-05 19:46:00 Frandy Umana [facility] BASIC METABOLIC PANEL (NA, K , CL, CO2, GLUCOSE, BUN, CREATININE, CA) 2022-04-05 19:46:00 Frandy Umana [facility] CBC WITH DIFF 2022-04-05 19:46:00 Frandy Umana [facility] BASIC METABOLIC PANEL (NA, K , CL, CO2, GLUCOSE, BUN, CREATININE, CA) 2022-04-05 19:46:00 Frandy Umana [facility] CBC WITH DIFF 2022-04-05 19:46:00 Frandy Umana [facility] GAMMA GLUTAMYLTRANSFERASE 2022-04-05 19:46:00 Frandy Umana [facility] HEPATIC FUNCTION PANEL ([id number]) (ALB,T.PRO,BILI T,BU/BC,ALT,AST,ALK PHOS) 2022-04-05 19:46:00 Frandy Umana [facility] URIC ACID 2022-04-05 19:46:00 Frandy Umana [facility] PHOSPHORUS 2022-04-05 19:46:00 Frandy Umana [facility] MAGNESIUM 2022-04-05 19:46:00 Frandy Umana [facility] LACTATE DEHYDROGENASE 2022-04-05 19:46:00 Frandy Umana [facility] HIV 1/2 AG-AB WITH REFLEX 2022-04-05 19:46:00 Frandy Umana [facility] ALPHA FETOPROTEIN 2022-04-05 19:46:00 Cookie Gamble [facility] [id number], SERUM 2022-04-05 19:46:00 Frandy Umana [facility] ALPHA FETOPROTEIN 2022-04-05 19:46:00 Cookie Gamble [facility] ASSIGNMENT OF BENEFITS 2022-03-30 16:16:44 Doctor Unassigned, [place] [facility] CONSENT/REFUSAL FOR DIAGNOSI S AND TREATMENT 2022-03-30 16:16:12 Doctor Unassigned, [place] [facility] CONSENT/REFUSAL FOR DIAGNOSI S AND TREATMENT 2022-03-30 16:16:12 Doctor Unassigned, [place] [facility] AUTHORIZATION FOR RELEASE OF PHI 2022-03-20 05:01:00 Doctor Unassigned, [place] [facility] PATIENT FINANCIAL POLICY 2022-03-06 14:13:56 Doctor Unassigned, [place] [facility] CONSENT/REFUSAL FOR DIAGNOSI S AND TREATMENT 2022-03-06 14:12:32 Doctor Unassigned, [place] [facility] N-TERMINAL PRO-BNP 2022-03-02 09:47:00 Daren Collazo [facility] CBC WITH DIFF 2022-03-02 09:47:00 Daren Collazo [facility] COMP. METABOLIC PANEL (59970) 2022-03-02 09:47:00 Daren Collazo [facility] MAGNESIUM 2022-03-02 09:47:00 Daren Collazo [facility] PHOSPHORUS 2022-03-02 09:47:00 Daren Collazo [facility] IR BIOPSY MUSCLE PERCUTANEOU S WITH ULTRASOUND 2022-03-01 22:01:11 Daren Collazo [facility] PROTHROMBIN TIME / INR 2022-03-01 21:45:00 Daren Collazo [facility] ACTIVATED PARTIAL THRMPLAS ROSALIND 2022-03-01 21:45:00 Daren Collazo [facility] SURGICAL PATHOLOGY EXAM 2022-03-01 21:14:00 Mike Smith [facility] MISCELLANEOUS SEND OUT TEST 2022-03-01 21:14:00 Elham Wells [facility] PROTEIN CREAT RATIO URINE RANDOM 2022-03-01 12:18:00 Barron Bales [facility] ANCA SCREEN 2022-03-01 09:36:00 Barron Bales [facility] ANTI-DOUBLE STRANDED DNA 2022-03-01 09:36:00 Barron Bales [facility] ANTI-NEUTROPHIL ANTIBODY 2022-03-01 09:36:00 Barron Bales [facility] ANTI-NUCLEAR ANTIBODY SCREEN 2022-03-01 09:36:00 Barron Bales [facility] RHEUMATOID FACTOR 2022-03-01 09:36:00 Barron Bales [facility] ANTI-NUCLEAR ANTIBODY TITER 2022-03-01 09:36:00 Barron Bales [facility] ANTI-NUCLEAR ANTIBODY-PATHOLOGIST INTERPRETATION 2022-03-01 09:36:00 Barron Bales [facility] COMP. METABOLIC PANEL (55465) 2022-03-01 09:35:00 [facility]-03-01 09:35:00 Laquita [facility] PHOSPHORUS 2022-03-01 09:35:00 Laquita [facility] CREATINE KINASE 2022-03-01 09:35:00 Daren Collazo [facility] BASIC METABOLIC PANEL (NA, K , CL, CO2, GLUCOSE, BUN, CREATININE, CA) 2022-03-01 01:09:00 Laquita [facility] BLOOD CULTURE SCREEN 2022-02-28 08:53:00 Minal Damon [facility] CBC WITH DIFF 2022-02-28 08:15:00 Laquita [facility] BASIC METABOLIC PANEL (NA, K , CL, CO2, GLUCOSE, BUN, CREATININE, CA) 2022-02-28 08:15:00 Laquita [facility] PHOSPHORUS 2022-02-28 08:15:00 Laquita [facility] HEPATIC FUNCTION PANEL (44036) (ALB,T.PRO,BILI T,BU/BC,ALT,AST,ALK PHOS) 2022-02-28 08:15:00 Laquita [facility] BASIC METABOLIC PANEL (NA, K , CL, CO2, GLUCOSE, BUN, CREATININE, CA) 2022-02-28 01:06:00 Laquita [facility] ALPHA FETOPROTEIN 2022-02-27 19:24:00 Laquita [facility] HEPATITIS B SURFACE ANTIGEN 2022-02-27 19:24:00 Laquita [facility] HEPATITIS B SURFACE ANTIBODY 2022-02-27 19:24:00 Laquita [facility] HCV ANTIBODY 2022-02-27 19:24:00 Laquita [facility] HBC ANTIBODY (IGM & IGG) 2022-02-27 19:24:00 Laquita [facility] HEPATITIS C VIRUS (HCV) BY QUANTITATIVE NAAT 2022-02-27 19:24:00 Laquita [facility] ELECTROPHORESIS, SERUM 2022-02-27 19:13:00 Laquita [facility] KAPPA-LAMBDA QUANT. FLC WITH RATIO 2022-02-27 19:13:00 Laquita [facility] IMMUNOFIXATION, SERUM 2022-02-27 19:13:00 Laquita [facility] URINALYSIS 2022-02-27 19:13:00 Laquita [facility] VITAMIN D, 25-OH 2022-02-27 19:13:00 Laquita [facility] INTACT PTH CALCIUM GROUP 2022-02-27 19:13:00 Laquita [facility] PARATHYROID HORMONE-RELATED PEPTIDE 2022-02-27 19:13:00 Laquita [facility] IMMUNOFIXATION, URINE FOR PANEL 2022-02-27 19:13:[address] Laqu[address] [facility] CT THORAX W CONTRAST 2022-02-27 14:55:[address] [facility] [address] ABDOMEN PELVIS W CONTRAST 2022-02-27 14:55:34 [facility] COVID-19 (ID NOW RAPID TESTING) 2022-02-27 13:59:00 [facility] LAB ONLY COVID INTERPRETATION 2022-02-27 13:59:00 [facility] CBC WITH DIFF 2022-02-27 13:17:00 [facility] COMP. METABOLIC PANEL (06397) 2022-02-27 13:17:00 [facility] GLYCOSYLATED HEMOGLOBIN (A1C) 2022-02-27 13:17:00 [facility] PHOSPHORUS 2022-02-27 13:17:00 Doni Coelho [facility] NOTICE OF PRIVACY PRACTICES 2022-02-27 12:57:52 Doctor Unassigned, [place] [facility] CONSENT/REFUSAL FOR DIAGNOSI S AND TREATMENT 2022-02-27 12:54:01 Doctor Unassigned, [place] [facility] HOSPITAL ADMISSION 2022-02-27 05:01:00 Doctor Unassigned, [place] [facility] Plan of Care Planned Activity Planned Date Details Comments Source Goal Plan of Care Note [code = 48462-8] Goal Plan of Care Note [code = 28422-1] Goal Plan of Care Note [code = 49785-0] Goal Plan of Care Note [code = 15265-6] Goal Plan of Care Note [code = 71682-3] Goal Plan of Care Note [code = 33728-8] Goal Plan of Care Note [code = 67850-9] Goal Plan of Care Note [code = 40489-8] Goal Plan of Care Note [code = 36089-3] Goal Plan of Care Note [code = 74465-2] Goal Plan of Care Note [code = 19146-1] Encounters Start Date/Time End Date/Time Encounter Type Admission Type Attending Clinicians Care Facility Care Department Encounter ID Source 2022-12-27 19:26:10 In[facility] [id number] [facility] 2022-11-23 14:17:01 Inpatient R [facility] [id number] [facility] 2022-10-23 08:28:08 Inpatient R [facility] [id number] [facility] 2022-07-12 17:24:44 Inpatient R DAYNA [facility] [id number] [facility] 2022-05-16 11:55:02 Inpatient R [facility] [id number] [facility] 2022-03-20 12:04:39 Outpatient SYSTEM, PROVIDER CHRISTAL SIEGEL [id number] MD Ming sher 2023-10-19 17:06:00 2023-10-19 21:17:00 Inpatient 1 GERRY PATEL TIMOTHY [facility] N, [address] [place] [address] [address], [facility] [place] [address] [facility] [id number] [facility] (LUF/LI V/SA) 2023-10-19 00:00:00 2023-10-19 00:00:00 Inpatient [facility] FOSTER Sher, [facility] [address] [place] [place] [address] [facility] [id number] [facility] (LUF/LI V/SA) 2023-03-07 00:00:00 2023-03-07 00:00:00 Patient Outreach Lizzeth Maloney [facility] 1..840.114 350.1.13.10 4.2.7.2.[id number] [facility] 2023-03-06 14:00:00 2023-03-06 14:20:00 Office Visit Frandy Umana [facility] 1..840.114 350.1.13.10 4.2.7.2.[id number] [facility] 2023-03-06 14:00:00 2023-03-06 14:00:00 Outpatient FRANDY GUTIERREZ [facility] [id number] [facility] 2023-03-01 10:00:00 2023-03-01 10:15:00 Customer Engagement Representative Visit 1, Adc Lab Carson Garcia Avi B [facility] 1..840.114 350.1.13.10 4.2.7.2.[id number] [facility] 2023-03-01 10:00:00 2023-03-01 10:00:00 Outpatient FRANDY GUTIERREZ [facility] [id number] [facility] 2023-02-26 09:39:15 2023-02-26 23:59:00 Hospital Encounter Frandy Umana [facility] 1.840.114 350.1.13.10 4.2.7.2.[id number] [facility] 2023-02-26 09:38:54 2023-02-26 09:38:54 Outpatient R FRANDY UMANA [facility] [id number] [facility] 2023-02-26 09:38:54 2023-02-26 09:38:54 Hospital Encounter Frandy Umana [facility] 1.840.114 350.1.13.10 4.2.7.2.[id number] [facility] 2023-01-24 10:00:00 2023-01-24 10:15:00 Customer Engagement Representative Visit Pob, Adc Lab Main Carson Garcia Avi B [facility] 1.0.114 350.1.13.10 4.2.7.2.[id number] [facility] 2023-01-24 10:00:00 2023-01-24 10:00:00 Outpatient R FRANDY UMANA [facility] [id number] [facility] 2023-01-23 15:40:00 2023-01-23 17:02:37 Outpatient R FRANDY UMANA [facility] [id number] [facility] 2023-01-23 15:40:00 2023-01-23 17:02:37 Office Visit Frandy Umana [facility] 1.0.114 350.1.13.10 4.2.7.2.[id number] [facility] 2023-01-21 00:00:00 2023-01-21 00:00:00 Patient Secure Msg Doctor Unassigned, [place] [facility] 1.2840.114 350.1.13.10 4.2.7.2.[id number] [facility] 2023-01-18 00:00:00 2023-01-18 00:00:00 Patient Secure Msg Doctor Unassigned, [place] [facility] 1.2840.114 350.1.13.10 4.2.7.2.[id number] [facility] 2022-12-27 16:15:00 2022-12-28 14:05:00 Inpatient X NITZA [facility] [id number] [facility] 2022-12-27 16:15:00 2022-12-28 14:05:00 Hospital Encounter Jim Sawyer Joseph Nguyen, [facility] 1.0.114 350.1.13.10 4.2.7.2.[id number] [facility] 2022-12-27 00:00:00 2022-12-27 00:00:00 Transition of Care Linda Mai [facility] 1.0.114 350.1.13.10 4.2.7.2.[id number] [facility] 2022-12-06 09:36:00 2022-12-26 15:10:00 Inpatient R CARSON GODDARD [facility] [id number] [facility] 2022-12-06 09:36:00 2022-12-26 15:10:00 Hospital Encounter Pedro Manriquez [facility] 1.0.114 350.1.13.10 4.2.7.2.[id number] [facility] 2022-12-26 00:00:00 2022-12-26 00:00:00 Case Management Mohsen Noyola [facility] 1.840.114 350.1.13.10 4.2.7.2.[id number] [facility] 2022-12-19 10:30:00 2022-12-19 10:30:00 Outpatient FRANDY GUTIERREZ [facility] [id number] [facility] 2022-12-17 10:30:00 2022-12-17 10:30:00 Outpatient R ERUM MERAZ [facility] [id number] [facility] 2022-12-14 08:00:00 2022-12-14 08:00:00 Outpatient FRANDY GUTIERREZ [facility] [id number] [facility] 2022-12-06 00:00:00 2022-12-06 00:00:00 Case Management Frandy Umana [facility] 1.2.840.114 350.1.13.10 4.2.7.2.[id number] [facility] 2022-12-05 08:00:00 2022-12-05 08:15:00 Customer Engagement Representative Visit Pob, Adc Lab Main Lisbeth Goddard [facility] 1..840.114 350.1.13.10 4.2.7.2.[id number] [facility] 2022-12-05 08:00:00 2022-12-05 08:00:00 Outpatient Sussy LISBETH GODDARD [facility] [id number] [facility] 2022-11-26 11:00:00 2022-11-27 08:04:40 Nurse Visit 6, [facility] Infusion Chair Shira Woodward [facility] 1..840.114 350.1.13.10 4.2.7.2.[id number] [facility] 2022-11-26 11:00:00 2022-11-26 11:00:00 Outpatient SHIRA STANFORD [facility] [id number] [facility] 2022-11-26 08:45:00 2022-11-26 09:00:00 Customer Engagement Representative Visit [facility]-Lab Frandy Umana [facility] 1.2.840.114 350.1.13.10 4.2.7.2.[id number] [facility] 2022-11-22 16:00:00 2022-11-22 16:58:01 Outpatient R FRANDY UMANA [facility] [id number] [facility] 2022-11-22 16:00:00 2022-11-22 16:58:01 [facility] [address] [facility] 1.2840.114 350.1.13.10 4.2.7.2.[id number] [facility] 2022-11-22 16:00:00 2022-11-22 16:00:00 Outpatient FRANDY GUTIERREZ [facility] [id number] [facility] 2022-11-22 00:00:00 2022-11-22 00:00:00 Transition of Care Gertrude Negron [facility] 1.2840.114 350.1.13.10 4.2.7.2.[id number] [facility] 2022-11-20 14:30:00 2022-11-20 14:30:00 Outpatient FRANDY GUTIERREZ [facility] [id number] [facility] 2022-11-20 14:30:00 2022-11-20 14:30:00 Nurse Visit 5, [facility] Infusion Chair Frandy Umana [facility] 1.2840.114 350.1.13.10 4.2.7.2.[id number] [facility] 2022-11-20 11:00:00 2022-11-20 11:15:00 Customer Engagement Representative Visit [facility] Frandy Umana [facility] 1.2.840.114 350.1.13.10 4.2.7.2.[id number] [facility] 2022-11-20 11:00:00 2022-11-20 11:00:00 Outpatient FRANDY GUTIERREZ [facility] [id number] [facility] 2022-11-12 16:00:00 2022-11-18 17:05:00 Inpatient R DAYNA ADRIAN [facility] [id number] [facility] 2022-11-12 16:00:00 2022-11-18 17:05:00 Hospital Encounter GoddardLisbeth [facility] 1.2.840.114 350.1.13.10 4.2.7.2.[id number] [facility] 2022-11-07 00:00:00 2022-11-07 00:00:00 Telephone Fradny Umana [facility] 1.2.840.114 350.1.13.10 4.2.7.2.[id number] [facility] 2022-11-06 00:00:00 2022-11-06 00:00:00 Telephone Frandy Umana [facility] 1.2.840.114 350.1.13.10 4.2.7.2.[id number] [facility] 2022-11-06 00:00:00 2022-11-06 00:00:00 Telephone Frandy Umana [facility] 1.2.840.114 350.1.13.10 4.2.7.2.[id number] [facility] 2022-11-01 00:00:00 2022-11-01 00:00:00 Telephone Frandy Umana [facility] 1.2.840.114 350.1.13.10 4.2.7.2.[id number] [facility] 2022-10-25 00:00:00 2022-10-25 00:00:00 Telephone TazFrandy riggs RICK Vera [facility] 1.2.840.114 350.1.13.10 4.2.7.2.[id number] [facility] 2022-10-22 00:00:00 2022-10-22 00:00:00 Telephone Frandy Umana RICK Vera [facility] 1.2.840.114 350.1.13.10 4.2.7.2.[id number] [facility] 2022-10-19 00:00:00 2022-10-19 00:00:00 Case Management Frandy Umana RICK Vera [facility] 1.2.840.114 350.1.13.10 4.2.7.2.[id number] [facility] 2022-10-18 15:00:00 2022-10-18 15:22:46 Outpatient R FRANDY UMANA [facility] [id number] [facility] 2022-10-18 15:00:00 2022-10-18 15:22:46 Office Visit Frandy UmanaAYAH Vera [facility] 1.2.840.114 350.1.13.10 4.2.7.2.[id number] [facility] 2022-10-16 10:00:00 2022-10-16 10:15:00 Customer Engagement Representative Visit 1, Adc Lab Frandy Umana [facility] 1.2.840.114 350.1.13.10 4.2.7.2.[id number] [facility] 2022-10-16 10:00:00 2022-10-16 10:00:00 Outpatient R FRANDY UMANA [facility] [id number] [facility] 2022-10-11 20:19:00 2022-10-11 21:34:00 Emergency X ALIZE CARABALLO [facility] [id number] [facility] 2022-10-11 20:19:00 2022-10-11 21:34:00 [facility] 1.2.840.114 350.1.13.10 4.2.7.2.[id number] [facility] 2022-10-10 10:00:00 2022-10-10 10:15:00 Customer Engagement Representative Visit 1, [facility] Frandy Powell [facility] 1.2.840.114 350.1.13.10 4.2.7.2.[id number] [facility] 2022-10-10 10:00:00 2022-10-10 10:00:00 Outpatient FRANDY GUTIERREZ [facility] [id number] [facility] 2022-10-10 00:00:00 2022-10-10 00:00:00 Orders Only Doctor Unassigned, [place] [facility] 1.2.840.114 350.1.13.10 4.2.7.2.[id number] [facility] 2022-10-03 10:15:00 2022-10-03 10:15:00 Outpatient FRANDY GUTIERREZ [facility] [id number] [facility] 2022-09-28 09:00:00 2022-09-28 09:15:00 Customer Engagement Representative Visit 1, [facility] Lab Frandy Umana [facility] 1.2.840.114 350.1.13.10 4.2.7.2.[id number] [facility] 2022-09-28 09:00:00 2022-09-28 09:00:00 Outpatient FRANDY GUTIERREZ [facility] [id number] [facility] 2022-09-28 00:00:00 2022-09-28 00:00:00 Orders Only Doctor Unassigned, [place] [facility] 1.2840.114 350.1.13.10 4.2.7.2.[id number] [facility] 2022-09-27 13:30:00 2022-09-27 13:30:00 Outpatient Sussy ERUM MERAZ [facility] [id number] [facility] 2022-09-19 10:00:00 2022-09-19 10:15:00 Customer Engagement Representative Visit Pob, Adc Lab Main Frandy Umana [facility] 1.840.114 350.1.13.10 4.2.7.2.[id number] [facility] 2022-09-19 10:00:00 2022-09-19 10:00:00 Outpatient FRANDY GUTIERREZ [facility] [id number] [facility] 2022-09-19 00:00:00 2022-09-19 00:00:00 Orders Only Doctor Unassigned, [place] [facility] 1.840.114 350.1.13.10 4.2.7.2.[id number] [facility] 2022-09-12 11:00:00 2022-09-12 11:15:00 Customer Engagement Representative Visit Only, [facility] Test Frandy Umana [facility] 1..114 350.1.13.10 4.2.7.2.[id number] [facility] 2022-09-12 11:00:00 2022-09-12 11:00:00 Outpatient FRANDY GUTIERREZ [facility] [id number] [facility] 2022-09-12 09:30:00 2022-09-12 10:00:00 Office Visit Frandy Umana [facility] 1.840.114 350.1.13.10 4.2.7.2.[id number] [facility] 2022-09-10 10:15:00 2022-09-10 10:30:00 Customer Engagement Representative Visit 1, Adc Lab Frandy Umana [facility] 1.2.840.114 350.1.13.10 4.2.7.2.[id number] [facility] 2022-09-10 10:15:00 2022-09-10 10:15:00 Outpatient R FRANDY UMANA [facility] [id number] [facility] 2022-08-29 00:00:00 2022-08-29 00:00:00 Patient Secure Msg Frandy Umana [facility] 1.2.840.114 350.1.13.10 4.2.7.2.[id number] [facility] 2022-08-24 13:45:14 2022-08-24 23:59:00 Outpatient R FRANDY UMANA [facility] [id number] [facility] 2022-08-24 13:45:14 2022-08-24 23:59:00 Hospital Encounter Frandy Umana [facility] 1.2.840.114 350.1.13.10 4.2.7.2.[id number] [facility] 2022-08-20 15:30:00 2022-08-20 16:46:18 Outpatient R FRANDY UMANA [facility] [id number] [facility] 2022-08-20 15:30:00 2022-08-20 16:46:18 Office Visit Frandy Umana [facility] 1.2.840.114 350.1.13.10 4.2.7.2.[id number] [facility] 2022-08-17 00:00:00 2022-08-17 00:00:00 Telephone Frandy Umana [facility] 1.2.840.114 350.1.13.10 4.2.7.2.[id number] [facility] 2022-08-16 10:00:00 2022-08-16 10:15:00 Customer Engagement Representative Visit [facility] Og Sherwood [facility] 1.2.840.114 350.1.13.10 4.2.7.2.[id number] [facility] 2022-08-16 10:00:00 2022-08-16 10:00:00 Outpatient OG SAUCEDO [facility] [id number] [facility] 2022-08-07 00:00:00 2022-08-07 00:00:00 Carson [facility]oz [facility] 1.2.840.114 350.1.13.10 4.2.7.2.[id number] [facility] 2022-08-01 00:00:00 2022-08-01 00:00:00 Frandy Robins [facility] 1.2.840.114 350.1.13.10 4.2.7.2.[id number] [facility] 2022-07-26 00:00:00 2022-07-26 00:00:00 Case Management Frandy Umana [facility] 1.2.840.114 350.1.13.10 4.2.7.2.[id number] [facility] 2022-07-24 09:30:00 2022-07-24 09:45:00 Customer Engagement Representative Visit 1, [facility] Frandy Powell [facility] 1.2.840.114 350.1.13.10 4.2.7.2.[id number] [facility] 2022-07-24 09:30:00 2022-07-24 09:30:00 Outpatient FRANDY GUTIERREZ [facility] [id number] [facility] 2022-07-24 00:00:00 2022-07-24 00:00:00 Orders Only Doctor Unassigned, [place] [facility] 1.2.840.114 350.1.13.10 4.2.7.2.[id number] [facility] 2022-07-18 00:00:00 2022-07-18 00:00:00 Transition of Care Mai Linda FEREddie [facility]OR[facility]MA ANDREWS 1.2.840.114 350.1.13.10 4.2.7.2.[id number] [facility] 2022-07-16 10:56:00 2022-07-17 18:16:00 Outpatient R NGUYỄN [facility] [id number] [facility] 2022-07-16 10:56:00 2022-07-17 18:16:00 Hospital Encounter Adrian Dayna [facility] 1.2.840.114 350.1.13.10 4.2.7.2.[id number] [facility] 2022-07-17 00:00:00 2022-07-17 00:00:00 Case Management Frandy Umana [facility] 1.2.840.114 350.1.13.10 4.2.7.2.[id number] [facility] 2022-07-17 00:00:00 2022-07-17 00:00:00 Case Management Yaneli James [facility] 1.2.840.114 350.1.13.10 4.2.7.2.[id number] [facility] 2022-07-13 00:00:00 2022-07-13 00:00:00 Case Management Frandy Umana [facility] 1.2.840.114 350.1.13.10 4.2.7.2.[id number] [facility] 2022-07-12 15:15:00 2022-07-12 15:30:00 Customer Engagement Representative Visit [facility] Frandy Umana [facility] 1.2.840.114 350.1.13.10 4.2.7.2.[id number] [facility] 2022-07-12 14:00:00 2022-07-12 14:52:22 Outpatient R FRANDY UMANA [facility] [id number] [facility] 2022-07-12 14:00:00 2022-07-12 14:52:22 Office Visit Frandy Umana [facility] 1.2.840.114 350.1.13.10 4.2.7.2.[id number] [facility] 2022-07-05 09:45:00 2022-07-05 10:00:00 Customer Engagement Representative Visit 1, [facility] Carson Garcia [facility] 1.2.840.114 350.1.13.10 4.2.7.2.[id number] [facility] 2022-07-05 09:45:00 2022-07-05 09:45:00 Outpatient R CARSON GARCIA [facility] [id number] [facility] 2022-07-05 00:00:00 2022-07-05 00:00:00 Orders Only Doctor Unassigned, [place] [facility] 1.2.840.114 350.1.13.10 4.2.7.2.[id number] [facility] 2022-07-04 00:00:00 2022-07-04 00:00:00 Patient Secure Msg Doctor Unassigned, [place] [facility] 1.2.840.114 350.1.13.10 4.2.7.2.[id number] [facility] 2022-07-03 00:00:00 2022-07-03 00:00:00 Transition of Care Linda Mai 1.2.840.114 350.1.13.10 4.2.7.2.[id number] [facility] 2022-06-15 09:20:00 2022-07-02 14:16:00 Inpatient R CARSON [facility] [id number] [facility] 2022-06-15 09:20:00 2022-07-02 14:16:00 Hospital Encounter Carson Goddard [facility] Og [facility] 1.2.840.114 350.1.13.10 4.2.7.2.[id number] [facility] 2022-06-29 00:00:00 2022-06-29 00:00:00 [facility] 1.2.840.114 350.1.13.10 4.2.7.2.[id number] [facility] 2022-06-28 00:00:00 2022-06-28 00:00:00 Telephone Frandy Umana [facility] 1.2.840.114 350.1.13.10 4.2.7.2.[id number] [facility] 2022-06-26 00:00:00 2022-06-26 00:00:00 Case Management Frandy Umana [facility] 1.2.840.114 350.1.13.10 4.2.7.2.[id number] [facility] 2022-06-19 00:00:00 2022-06-19 00:00:00 Case Management Frandy Umana [facility] 1..114 350.1.13.10 4.2.7.2.[id number] [facility] 2022-06-12 10:30:00 2022-06-12 12:52:49 [id number] 2022-06-12 10:30:00 2022-06-12 12:52:49 [facility] 1.84.114 350.1.13.10 4.2.7.2.[id number] [facility] 2022-06-12 10:30:00 2022-06-12 10:30:00 [id number] 2022-06-06 10:30:00 2022-06-06 11:28:38 Outpatient R FRANDY UMANA [facility] [id number] [facility] 2022-06-06 10:30:00 2022-06-06 11:28:38 Office Visit Frandy Umana [facility] 1.84.114 350.1.13.10 4.2.7.2.[id number] [facility] 2022-06-05 09:00:00 2022-06-05 11:51:39 Outpatient R SHIRA WOODWARD [facility] [id number] [facility] 2022-06-05 09:00:00 2022-06-05 11:51:39 Nurse Visit 8, [facility] Infusion Chair Shira Woodward [facility] 1..114 350.1.13.10 4.2.7.2.[id number] [facility] 2022-05-30 15:00:00 2022-05-30 15:30:00 Nurse Visit 6, [facility] Infusion Chair Taz, Frandy [facility] 1.84.114 350.1.13.10 4.2.7.2.[id number] [facility] 2022-05-30 15:00:00 2022-05-30 15:00:00 Outpatient FRANDY GUTIERREZ [facility] [id number] [facility] 2022-05-30 00:00:00 2022-05-30 00:00:00 Transition of Care Mai Linda ANDREWS 1.840.114 350.1.13.10 4.2.7.2.[id number] [facility] 2022-05-30 00:00:00 2022-05-30 00:00:[address] [facility] 1.84.114 350.1.13.10 4.2.7.2.[id number] [facility] 2022-05-25 10:24:00 2022-05-29 16:15:00 Inpatient R CARSON GODDARD [facility] [id number] [facility] 2022-05-25 10:24:00 2022-05-29 16:15:00 Hospital Encounter Carson Goddard [facility] 1.84.114 350.1.13.10 4.2.7.2.[id number] [facility] 2022-05-29 09:30:00 2022-05-29 09:30:00 [id number] 2022-05-28 10:00:00 2022-05-28 10:00:00 Outpatient SHIRA STANFORD [facility] [id number] [facility] 2022-05-28 00:00:00 2022-05-28 00:00:00 Case Management Manasa Emerson [facility] 1..114 350.1.13.10 4.2.7.2.[id number] [facility] 2022-05-28 00:00:00 2022-05-28 00:00:00 Case Management Shira Woodward [facility] 1..114 350.1.13.10 4.2.7.2.[id number] [facility] 2022-05-25 00:00:00 2022-05-25 00:00:00 Orders Only Doctor Unassigned, [place] [facility] 1..114 350.1.13.10 4.2.7.2.[id number] [facility] 2022-05-14 14:30:00 2022-05-14 15:36:08 Outpatient R FRANDY UMANA [facility] [id number] [facility] 2022-05-14 14:30:00 2022-05-14 15:36:08 Office Visit Frandy Umana [facility] 1..114 350.1.13.10 4.2.7.2.[id number] [facility] 2022-05-11 10:00:00 2022-05-11 13:39:44 Outpatient SHIRA STANFORD [facility] [id number] [facility] 2022-05-11 10:00:00 2022-05-11 13:39:44 Nurse Visit 2, [facility] Infusion Chair Shira Woodward [facility] 1..114 350.1.13.10 4.2.7.2.[id number] [facility] 2022-05-10 09:00:00 2022-05-10 09:15:00 Customer Engagement Representative Visit 1, [facility] Shira Woodward [facility] 1.2.840.114 350.1.13.10 4.2.7.2.[id number] [facility] 2022-05-10 09:00:00 2022-05-10 09:00:00 Outpatient Sussy SHIRA WOODWARD [facility] [id number] [facility] 2022-05-09 14:30:00 2022-05-09 15:00:00 Nurse Visit 3, [facility] Infusion Chair Frandy Umana [facility] 1.0.114 350.1.13.10 4.2.7.2.[id number] [facility] 2022-05-09 14:30:00 2022-05-09 14:30:00 Outpatient FRANDY GUTIERREZ [facility] [id number] [facility] 2022-05-09 00:00:00 2022-05-09 00:00:00 Transition of Care Linda Mai [facility] 1.0.114 350.1.13.10 4.2.7.2.[id number] [facility] 2022-05-09 00:00:00 2022-05-09 00:00:00 Case Management Manasa Emerson [facility] 1.0.114 350.1.13.10 4.2.7.2.[id number] [facility] 2022-04-29 19:17:00 2022-05-08 17:30:00 [facility] [id number] [facility] 2022-04-29 19:17:00 2022-05-08 17:30:00 Hospital Encounter Ulices Alvarez [place], Paul [facility] 1.840.114 350.1.13.10 4.2.7.2.[id number] [facility] 2022-05-04 00:00:00 2022-05-04 00:00:00 Outpatient FRANDY GUTIERREZ [facility] [id number] [facility] 2022-05-03 00:00:00 2022-05-03 00:00:00 Case Management Frandy Umana [facility] 1.2.840.114 350.1.13.10 4.2.7.2.[id number] [facility] 2022-05-03 00:00:00 2022-05-03 00:00:00 Case Management Taz [facility] 1.2.840.114 350.1.13.10 4.2.7.2.[id number] [facility] 2022-04-29 00:00:00 2022-04-29 00:00:00 Orders Only Doctor Unassigned, [place] [facility] 1.2.840.114 350.1.13.10 4.2.7.2.[id number] [facility] 2022-04-28 08:35:00 2022-04-28 09:07:00 Emergency X [facility] [id number] [facility] 2022-04-28 08:35:00 2022-04-28 09:07:00 Emergency Philly Dumont [facility] 1.2.840.114 350.1.13.10 4.2.7.2.[id number] [facility] 2022-04-25 12:15:00 2022-04-25 12:30:00 Customer Engagement Representative Visit [facility] Frandy Umana [facility] 1.2840.114 350.1.13.10 4.2.7.2.[id number] [facility] 2022-04-25 11:00:00 2022-04-25 11:39:28 Outpatient FRANDY GUTIERREZ [facility] [id number] [facility] 2022-04-25 11:00:00 2022-04-25 11:39:28 Office Visit Frandy Umana [facility] 1.20.114 350.1.13.10 4.2.7.2.[id number] [facility] 2022-04-25 00:00:00 2022-04-25 00:00:00 Telephone Michelle Abraham 1.20.114 350.1.13.10 4.2.7.2.[id number] [facility] 2022-04-20 11:00:00 2022-04-20 13:17:39 Outpatient R SHIRA WOODWARD [facility] [id number] [facility] 2022-04-20 11:00:00 2022-04-20 13:17:39 Nurse Visit 5, [facility] Infusion Chair BushraShira elder [facility] 1..114 350.1.13.10 4.2.7.2.[id number] [facility] 2022-04-20 00:00:00 2022-04-20 00:00:00 Case Management Salazar Alvarez [facility] 1..114 350.1.13.10 4.2.7.2.[id number] [facility] 2022-04-17 00:00:00 2022-04-17 00:00:00 Transition of Care Linda Mai 1.2840.114 350.1.13.10 4.2.7.2.[id number] [facility] 2022-04-17 00:00:00 2022-04-17 00:00:00 Case Management Eliud Sheldon [facility] 1.2.840.114 350.1.13.10 4.2.7.2.[id number] [facility] 2022-04-17 00:00:00 2022-04-17 00:00:00 Telephone Taz Frandy Zambrano RICK [facility] 1.2.840.114 350.1.13.10 4.2.7.2.[id number] [facility] 2022-04-05 16:24:00 2022-04-15 17:43:00 Inpatient U ULICES ALVAREZ [facility] [id number] [facility] 2022-04-05 16:24:00 2022-04-15 17:43:00 [facility] 1.2.840.114 350.1.13.10 4.2.7.2.[id number] [facility] 2022-04-12 15:25:00 2022-04-12 17:39:00 Surgery Roshan Madrid [facility] 1.2.840.114 350.1.13.10 4.2.7.2.[id number] [facility] 2022-04-12 15:27:00 2022-04-12 17:33:00 Anesthesia Event Dk-Luis Polk Lorenzo 1.2.840.1 02882.1.1 3.104.2.7 .3.085425 .[id number] [facility] 2022-04-12 00:00:00 2022-04-12 00:00:00 Case Management Salazar Alvarez 1.2.840.1 53675.1.1 3.104.2.7 .3.591037 .[id number] [facility] 2022-04-11 00:00:00 2022-04-11 00:00:00 Case Management Frandy Umana 1.2.840.1 44730.1.1 3.104.2.7 .3.759703 .[id number] [facility] 2022-04-05 13:00:00 2022-04-05 15:41:04 Office Visit Frandy Umana 1.2.840.1 89534.1.1 3.104.2.7 .3.789673 .[id number] [facility] 2022-04-05 15:00:00 2022-04-05 15:15:00 Customer Engagement Representative Visit Frandy Umana [facility] 1.2.840.1 66337.1.1 3.104.2.7 .3.744112 .[id number] [facility] 2022-04-05 00:00:00 2022-04-05 00:00:00 Travel 1.2.840.1 22933.1.1 3.104.2.7 .3.381444 .8 1.2.840.114 350.1.13.10 4.2.7.3[id number] [facility] 2022-04-02 00:00:00 2022-04-02 00:00:00 Case Management Michelle Abraham 1.2.840.1 44989.1.1 3.104.2.7 .3.668489 .[id number] [facility] 2022-03-30 11:30:00 2022-03-30 12:22:20 Outpatient R ERUM MERAZ [facility] [id number] [facility] 2022-03-30 11:30:00 2022-03-30 12:22:20 Office Visit Erum Meraz 1.2.840.1 09601.1.1 3.104.2.7 .3.022702 .[id number] [facility] 2022-03-30 00:00:00 2022-03-30 00:00:00 Orders Only Doctor Unassigned, [place] 1.2.840.1 88612.1.1 3.104.2.7 .3.825828 .[id number] [facility] 2022-03-30 00:00:00 2022-03-30 00:00:00 Travel 1.2.840.1 10129.1.1 3.104.2.7 .3.441627 .8 1.2.840.114 350.1.13.10 [id number] [facility] 2022-03-29 00:00:00 2022-03-29 00:00:00 Telephone Erum Meraz 1.2.840.1 77271.1.1 3.104.2.7 .3.163801 .[id number] [facility] 2022-03-26 00:00:00 2022-03-26 00:00:00 Telephone Erum Meraz 1.2.840.1 71041.1.1 3.104.2.7 .3.935236 .[id number] [facility] 2022-03-21 00:00:00 2022-03-21 00:00:00 Telephone Erum Meraz 1.2.840.1 63186.1.1 3.104.2.7 .3.574549 .[id number] [facility] 2022-03-20 00:00:00 2022-03-20 00:00:00 Orders Only Doctor Unassigned, [place] 1.2.840.1 87349.1.1 3.104.2.7 .3.685439 .[id number] [facility] 2022-03-15 00:00:00 2022-03-15 00:00:00 Patient Secure Msg Doctor Unassigned, [place] [facility] 1.2.840.114 350.1.13.10 4.2.7.2.[id number] [facility] 2022-03-09 00:00:00 2022-03-09 00:00:00 Lab Judittanner Elham Prado 1.2.840.1 34539.1.1 3.104.2.7 .3.475316 .[id number] [facility] 2022-03-06 10:00:00 2022-03-06 11:08:19 Outpatient R ERUM MERAZ [facility] [id number] [facility] 2022-03-06 10:00:00 2022-03-06 11:08:19 Office Visit Erum Meraz 1.2.840.1 42574.1.1 3.104.2.7 .3.098796 .[id number] [facility] 2022-03-06 00:00:00 2022-03-06 00:00:00 Travel 1.2.840.1 61723.1.1 3.104.2.7 .3.962065 .8 1.2.840.114 350.1.13.10 [id number] [facility] 2022-03-05 00:00:00 2022-03-05 00:00:00 Transition of Care Linda Mai 1.2.840.1 48655.1.1 3.104.2.7 .3.666943 .[id number] [facility] 2022-03-05 00:00:00 2022-03-05 00:00:00 Travel 1.2.840.1 90926.1.1 3.104.2.7 .3.035087 .8 1.2.840.114 350.1.13.10 [address].2[address]7.3[id number] [facility] 2022-02-27 08:03:00 2022-03-02 13:16:00 Hospital Encounter Matt Carlson Jelani 1.2.840.1 71280.1.1 3.104.2.7 .3.023721 .[id number] [facility] 2022-02-27 08:03:00 2022-03-02 13:16:00 Inpatient X DONI COELHO [facility] [id number] [facility] 2022-02-27 08:03:00 2022-03-02 13:16:00 Inpatient X DONI COELHO [facility] [id number] [facility] 2022-02-27 00:00:00 2022-02-27 00:00:00 Travel 1.2.840.1 69875.1.1 3.104.2.7 .3.411990 .8 1.2.840.114 350.1.13.10 [address]7.3[id number] [facility] 2022-02-15 00:00:00 2022-02-15 00:00:00 Outpatient Visit [id number] Results Test Description Test Time Test Comments Results Resul t Comments Source CT ABDOMEN/PELVIS W/CONTRAST 2023-09-24 7 19:13:47 [facility])Name: PIYUSH MENA : 1965 Sex: M Procedures: CT ABDOMEN/PELVIS W/CONTRASTExam Date: 10/19/2023 5:33 PMOrdering Physician: GERRY CARDOSOlinical Indication: [id number]: Lower abdominal painComparison: None available.TECHNIQUE: Spiral multislice scanning was obtained from the lung bases throughthe bony pelvis with intravenous contrast only. 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 No intrahepatic masses or lesions.Gallbladder: Limited evaluation is without gross abnormality.Pancreas: Normal.Spleen: Splenomegaly. Splenic calcifications are present.Adrenals: Normal.URINARY:Kidneys: Normal symmetric cortical enhancement. No hydronephrosis ornephrolithiasis.Ureters: The ureters are of normal course and caliber.Urinary bladder: No significant abnormality of the urinary bladder.REPRODUCTIVE:Organs : No significant abnormality of the prostate.Free fluid: Diffuse ascites.Incidental pelvic phleboliths are noted.GASTROINTESTINAL:Larg e bowel: No significant abnormality.Appendix: The appendix is within normal limits.Small bowel: Normal.Stomach: No significant abnormalities of the stomach.Mesentery: Normal.RETROPERITONEUM:Aort a: Limited evaluation is without gross abnormality.Lymphadenopathy : Subcentimeter retroperitoneal lymph nodes, likely reactive.Masses: None.OSSEOUS: Degenerative changes of the spine; otherwise, no significant osseouslesions.OTHER: Bilateral fat-containing inguinal hernia. Abdominal wall varicositiesare noted. No significant abnormality of the remaining soft tissues.IMPRESSION:1. No significant CT abnormalities are demonstrated to explain the patient'bijal complaint.2. Cirrhotic morphology of liver with splenomegaly, sequelae of portal venoushypertension, ascites, and abdominal wall varices.3. Chronic findings, as above.This final report was electronically signed by Dr Mahi Garduno MD10/19/2023 7:08 PMDictated By: MAHI LEDate: 10/19/2023 19:08 STLML STLMLCBC WITH AUTO [id number] 18:24:00* Test Item Value Reference Range Interpretation Comme nts WBC (test code = WBC) 3.89 10\\S\\3/ul 4.80-10.80 L RBC (test code = RBC) 3.59 10\\S\\6/ul 4.70-6.10 L Hemoglobin (test code = HGB) 12.4 gm/dl 14.0-18.0 L Hematocrit (test code = HCT) 36.6 % 42.0-50.0 L MCV (test code = MCV) 101.9 fL 80.0-94.0 H MCH (test code = MCH) 34.5 pg 27.0-31.0 H MCHC (test code = MCHC) 33.9 gm/dl 33.0-37.0 RDW (test code = RDWVC) 15.9 % 11.5-14.5 H Platelet (test code = PLT) 51 10\\S\\3/ul 130-400 L MPV (test code = MPV) 11.2 fL 7.4-10.4 A "NOT MEASURED" RESULTS ARE DISPLAYED WHEN THE INSTRUMENT HAS A SUPPRESSED OR UNREPORTABLE RESULT. THIS WILL MOST OFTEN HAPPEN WITH THE MPV WHEN THERE IS AN ABNORMAL PLATELET DISTRIBUTION DUE TO A CRITICAL LOW VALUE OR PLATELET CLUMPING. THE RDW MAY BE SUPPRESSED IF THERE ARE MULTIPLE PEAKS PRESENT ON THE RBC HISTOGRAM. IN THIS CASE, A MANUAL REVIEW OF THE SLIDE WILL BE PERFORMED, AND RBC MORPHOLOGY WILL BE NOTED ON THE REPORT. NE% (test code = NE) 62.5 % 42.0-75.0 LY% (test code = LY) 23.1 % 13.0-42.0 MO% (test code = MO) 10.8 % 4.0-14.0 EO% (test code = EO) 2.3 % 1.0-5.0 BA% (test code = BA) 0.8 % 0.0-3.0 IG% (test code = IG%) 0.5 % 0.0-0.4 H [id number] 18:20:00* Test Item Value Reference Range Interpretation Comme nts Glucose (test code = GLU) 105 mg/dl 74-106 BUN (test code = BUN) 12.0 mg/dl 7.0-18.0 Creatinine (test code = CREA) 0.8 mg/dl 0.5-1.3 Sodium (test code = NA) 144 mmol/l 137-145 Anion Gap (test code = GAP) 5 mmol/l 5-15 Potassium (test code = K) 3.6 mmol/l 3.5-5.1 Chloride (test code = CL) 110 mmol/l 98-107 H CO2 (test code = CO2) 29 mmol/l 21-32 Calcium (test code = CALC) 8.1 mg/dl 8.5-10.1 L T Protein (test code = TP) 6.4 gm/dl 6.4-8.2 Albumin (test code = ALB) 2.7 gm/dl 3.4-5.0 L A/G Ratio (test code = AGRAT) 0.7 % 1.1-2.2 L AST (SGOT) (test code = AST) 236 U/L 15-37 H ALT (SGPT) (test code = ALT) 149 U/L 13-61 H Alkaline Phos (test code = ALKP) 199 U/L 45-117 H Bilirubin, Total (test code = TBIL) 4.7 mg/dl 0.2-1.0 H Globulin (test code = GLOBU) 3.7 gm/dl 2.3-3.5 H Calcium, Corrected (test code = CALCCORR) 9.1 mg/dl 8.4-10.2 Various formulas exist for corrected serum calcium results, each yielding different values. This corrected result was based on the formula: Corrected Calcium = SerumCalcium + [0.8 * ( 4 - SerumAlbumin)] Estimated Glomerular Filtration Rate (eGFR) (test code = EGFR) >60 As of 08/29/2022, reported eGFR is based on the CKD-EPI 2020 equation that does not use a race coefficient. STLMLHIGH SENSITIVITY [id number] 18:16:00* Test Item Value Reference Range Interpretation Comme nts HIGH SENSITIVITY TROPONIN (test code = TNIH) 13.6 ng/L 0.0-53.0 CHANGE IN TEST M ETHOD A change in the test method for Troponin has gone into effect. We now test for High Sensitivity Troponin. The new units of measure are ng/L, and the new 99th percentile cutoff of 34 ng/L for FEMALE and 53 ng/L for MALE. New critical values will be called for any troponin greater than or equal to 500 ng/L. STLMLPRO-BNP(B-Type Natriuretic Peptide)2023-10-19 18:16:00* Test Item Value Reference Range Interpretation Comme nts Pro-BNP(B-Peptide) (test cod e = PROBNP) 53 pg/ml 0-125 STLMLPOCT GLUCOSE (AUTOMATED)2023-02-26 15:06:28* Test Item Value Reference Range Interpretation Comme nts POCT GLU (test code = 0414949955) 97 mg/dL 70-110 Lab Interpretation (test cod e = 76425-4) Normal [facility] WITH [id number] 17:01:38* Test Item Value Reference Range Interpretation Comme nts WBC (test code = 6690-2) 2.55 See_Comment L [Automated messa ge] The system which generated this result transmitted reference range: 4.20 - 10.70 10*3/?L. The reference range was not used to interpret this result as normal/abnormal. RBC (test code = 789-8) 3.62 See_Comment L [Automated messa ge] The system which generated this result transmitted reference range: 4.26 - 5.52 10*6/?L. The reference range was not used to interpret this result as normal/abnormal. HGB (test code = 718-7) 12.3 g/dL 12.2-16.4 HCT (test code = 4544-3) 35.7 % 38.4-49.3 L MCV (test code = 787-2) 98.6 fL 81.7-95.6 H MCH (test code = 785-6) 34.0 pg 26.1-32.7 H MCHC (test code = 786-4) 34.5 g/dL 31.2-35.0 RDW-SD (test code = 85742-2) 65.8 fL 38.5-51.6 H RDW-CV (test code = 788-0) 18.5 % 12.1-15.4 H PLT (test code = 777-3) 53 See_Comment L [Automated messa ge] The system which generated this result transmitted reference range: 150 - 328 10*3/?L. The reference range was not used to interpret this result as normal/abnormal. MPV (test code = 36871-6) 12.1 fL 9.8-13.0 IPF % (test code = 3111710171) 3.8 % 1.2-10.7 Platelet count measured by fluorescence method. NRBC/100 WBC (test code = 0054542292) 0.0 See_Comment [Automated ASP64 ssage] The system which generated this result transmitted reference range: 0.0 - 10.0 /100 WBCs. The reference range was not used to interpret this result as normal/abnormal. NRBC x10^3 (test code = 7165901243) See_Comment [Automated DineGasma ge] The system which generated this result transmitted reference range: 10*3/?L. The reference range was not used to interpret this result as normal/abnormal. GRAN MAT (NEUT) % (test code = 770-8) 66.2 % IMM GRAN % (test code = 2878096036) 0.80 % LYMPH % (test code = 736-9) 15.3 % MONO % (test code = 5905-5) 11.4 % EOS % (test code = 713-8) 5.1 % BASO % (test code = 706-2) 1.2 % GRAN MAT x10^3(ANC) (test code = 0849598783) 1.69 10*3/uL 1.99-6.95 L IMM GRAN x10^3 (test code = 7262922250) 0.00-0.06 LYMPH x10^3 (test code = 731-0) 0.39 10*3/uL 1.09-3.23 L MONO x10^3 (test code = 742-7) 0.29 10*3/uL 0.36-1.02 L EOS x10^3 (test code = 711-2) 0.13 10*3/uL 0.06-0.53 BASO x10^3 (test code = 704-7) 0.03 10*3/uL 0.01-0.09 ELLIPTO/OVAL (test code = 81950-2) 2+ See_Comment A [Automated DineGasma ge] The system which generated this result transmitted reference range: (none). The reference range was not used to interpret this result as normal/abnormal. SCHISTOCYTES (test code = 800-3) 1+ A TEARDROP CELLS (test code = 7791-7) 2+ See_Comment A [Automated DineGasma ge] The system which generated this result transmitted reference range: (none). The reference range was not used to interpret this result as normal/abnormal. LG GRAN LYMPHS (test code = 0464802870) Rare Rare GIANT PLATELETS (test code = 5908-9) Present See_Comment A [Automated DineGasma ge] The system which generated this result transmitted reference range: (none). The reference range was not used to interpret this result as normal/abnormal. Lab Interpretation (test code = 31159-1) Abnormal [facility]. METABOLIC PANEL (23182)2023-01-24 16:16:19* Test Item Value Reference Range Interpretation Comme nts NA (test code = 8111167464) 143 mmol/L 135-145 K (test code = 9826890186) 3.9 mmol/L 3.5-5.0 CL (test code = 2012049785) 108 mmol/L 98-108 CO2 TOTAL (test code = 3808123370) 30 mmol/L 23-31 AGAP (test code = 0894521713) 5 2-16 BUN (test code = 3557367827) 12 mg/dL 7-23 GLUCOSE (test code = 6993639939) 114 mg/dL 70-110 H CREATININE (test code = 0680052708) 0.69 mg/dL 0.60-1.25 TOTAL BILI (test code = 7956672555) 1.4 mg/dL 0.1-1.1 H CALCIUM (test code = 6684488819) 8.8 mg/dL 8.6-10.6 T PROTEIN (test code = 8162372398) 6.5 g/dL 6.3-8.2 ALBUMIN (test code = 4790777231) 3.7 g/dL 3.5-5.0 ALK PHOS (test code = 0860833404) 119 U/L 34-122 ALTv (test code = 1742-6) 182 U/L 5-50 H AST(SGOT) (test code = 6912481783) 306 U/L 13-40 H eGFR (test code = 9850600534) 118.6 mL/min/1.73m2 MONTSERRAT (test code = MONTSERRAT) Association of Glomerular Filtration Rate (GFR) and Staging of Kidney Disease* + --+ --+ ------+| GFR (mL/min/1.73 m2) ?| With Kidney Damage ?| ?Without Kidney Damage+ --------+ --------+ +| ?>90 ?| ?Stage one ?| ? Normal ?+ ---+ ---+ -------+| ?60-89 ?| ?Stage two ?| ? Decreased GFR ? + --+ --+ ------+| ?30-59 ?| ?Stage three ?| ? Stage three ? + --+ --+ ------+| ?15-29 ?| ?Stage four ? | ? Stage four ?+ ---+ ---+ -------+| ?<15 (or dialysis) ? ?| ?Stage five ? | ? Stage five ?+ ---+ ---+ -------+ *Each stage assumes the associated GFR level has been in effect for at least three months. ?Stages 1 to 5, with or without kidney disease, indicate chronic kidney disease. Notes: Determination of stages one and two (with eGFR >59mL/min/1.73 m2) requires estimation of kidney damage for at least three months as defined by structural or functional abnormalities of the kidney, manifested by either:Pathological abnormalities or Markers of kidney damage (including abnormalities in the composition of the blood or urine or abnormalities in imaging tests). Lab Interpretation (test code = 30288-3) Abnormal [facility] WITH [id number] 06:41:46* Test Item Value Reference Range Interpretation Comme nts WBC (test code = 6690-2) 3.22 See_Comment L [Automated [employer]] The system which generated this result transmitted reference range: 4.20 - 10.70 10*3/?L. The reference range was not used to interpret this result as normal/abnormal. RBC (test code = 789-8) 2.99 See_Comment L [Automated [employer]] The system which generated this result transmitted reference range: 4.26 - 5.52 10*6/?L. The reference range was not used to interpret this result as normal/abnormal. HGB (test code = 718-7) 9.3 g/dL 12.2-16.4 L HCT (test code = 4544-3) 26.3 % 38.4-49.3 L MCV (test code = 787-2) 88.0 fL 81.7-95.6 MCH (test code = 785-6) 31.1 pg 26.1-32.7 MCHC (test code = 786-4) 35.4 g/dL 31.2-35.0 H RDW-SD (test code = 95918-5) 52.6 fL 38.5-51.6 H RDW-CV (test code = 788-0) 16.4 % 12.1-15.4 H PLT (test code = 777-3) 13 See_Comment LL [Automated [employer]] The system which generated this result transmitted reference range: 150 - 328 10*3/?L. The reference range was not used to interpret this result as normal/abnormal. MPV (test code = 30118-6) Not Measured IPF % (test code = 1869229338) 6.9 % 1.2-10.7 Platelet count measured by fluorescence method. NRBC/100 WBC (test code = 2167397203) 0.0 See_Comment [Automated ASP64 ssage] The system which generated this result transmitted reference range: 0.0 - 10.0 /100 WBCs. The reference range was not used to interpret this result as normal/abnormal. NRBC x10^3 (test code = 8327280276) See_Comment [Automated [employer] ge] The system which generated this result transmitted reference range: 10*3/?L. The reference range was not used to interpret this result as normal/abnormal. GRAN MAT (NEUT) % (test code = 770-8) 59.0 % IMM GRAN % (test code = 3369650284) 9.60 % LYMPH % (test code = 736-9) 4.7 % MONO % (test code = 5905-5) 26.4 % EOS % (test code = 713-8) 0.0 % BASO % (test code = 706-2) 0.3 % GRAN MAT x10^3(ANC) (test code = 9125252491) 1.90 10*3/uL 1.99-6.95 L IMM GRAN x10^3 (test code = 7449169327) 0.31 10*3/uL 0.00-0.06 H LYMPH x10^3 (test code = 731-0) 0.15 10*3/uL 1.09-3.23 L MONO x10^3 (test code = 742-7) 0.85 10*3/uL 0.36-1.02 EOS x10^3 (test code = 711-2) 0.06-0.53 L BASO x10^3 (test code = 704-7) 0.01-0.09 DOHLE BODIES (test code = 7792-5) Present A TOXIC CHANGES (test code = 803-7) Present A Lab Interpretation (test code = 66599-1) [facility] [id number] 06:18:55* Test Item Value Reference Range Interpretation Comme nts LDH (test code = 8384365351) 308 U/L 120-246 H Lab Interpretation (test cod e = 00507-8) Abnormal [facility] METABOLIC PANEL (NA, K, CL, CO2, GLUCOSE, BUN, CREATININE, CA)2022-12-28 06:06:36* Test Item Value Reference Range Interpretation Comme nts NA (test code = 5486950001) 141 mmol/L 135-145 K (test code = 6759982772) 3.4 mmol/L 3.5-5.0 L CL (test code = 6432753241) 103 mmol/L 98-108 CO2 TOTAL (test code = 9716806336) 31 mmol/L 23-31 AGAP (test code = 7108826697) 7 2-16 BUN (test code = 3772649957) 14 mg/dL 7-23 GLUCOSE (test code = 9991001834) 119 mg/dL 70-110 H CREATININE (test code = 1664825885) 0.59 mg/dL 0.60-1.25 L CALCIUM (test code = 7498618524) 8.4 mg/dL 8.6-10.6 L eGFR (test code = 3840939520) 142.6 mL/min/1.73m2 MONTSERRAT (test code = MONTSERRAT) Association of Glomerular Filtration Rate (GFR) and Staging of Kidney Disease* + --+ --+ ------+| GFR (mL/min/1.73 m2) ?| With Kidney Damage ?| ?Without Kidney Damage+ --------+ --------+ +| ?>90 ?| ?Stage one ?| ? Normal ?+ ---+ ---+ -------+| ?60-89 ?| ?Stage two ?| ? Decreased GFR ? + --+ --+ ------+| ?30-59 ?| ?Stage three ?| ? Stage three ? + --+ --+ ------+| ?15-29 ?| ?Stage four ? | ? Stage four ?+ ---+ ---+ -------+| ?<15 (or dialysis) ? ?| ?Stage five ? | ? Stage five ?+ ---+ ---+ -------+ *Each stage assumes the associated GFR level has been in effect for at least three months. ?Stages 1 to 5, with or without kidney disease, indicate chronic kidney disease. Notes: Determination of stages one and two (with eGFR >59mL/min/1.73 m2) requires estimation of kidney damage for at least three months as defined by structural or functional abnormalities of the kidney, manifested by either:Pathological abnormalities or Markers of kidney damage (including abnormalities in the composition of the blood or urine or abnormalities in imaging tests). Lab Interpretation (test code = 94690-1) [facility] 06:06:36* Test Item Value Reference Range Interpretation Comme nts MAGNESIUM (test code = 6181038371) 1.8 mg/dL 1.7-2.4 Lab Interpretation (test cod e = 20222-5) Normal [facility] (29288) (ALB,T.PRO,BILI T,BU/BC,ALT,AST,ALK PHOS)2022-12-28 06:06:36* Test Item Value Reference Range Interpretation Comme nts TOTAL BILI (test code = 5140874855) 0.9 mg/dL 0.1-1.1 BILI UNCON (test code = 0184458149) 0.5 mg/dL 0.1-1.1 BILI CONJ (test code = 4962940957) 0.0 mg/dL 0.0-0.3 T PROTEIN (test code = 4033240786) 5.5 g/dL 6.3-8.2 L ALBUMIN (test code = 3744851252) 2.9 g/dL 3.5-5.0 L ALK PHOS (test code = 0590079742) 174 U/L 34-122 H ALTv (test code = 1742-6) 119 U/L 5-50 H AST(SGOT) (test code = 2056787386) 177 U/L 13-40 H Lab Interpretation (test cod e = 67035-9) [facility] [id number] 06:06:36* Test Item Value Reference Range Interpretation Comme nts URIC ACID (test code = 3165884993) 3.1 mg/dL 3.6-8.0 L Lab Interpretation (test cod e = 99036-7) [facility]normal [facility] WITH [id number] 23:54:11* Test Item Value Reference Range Interpretation Comme nts WBC (test code = 6690-2) 6.15 See_Comment [Automated messa ge] The system which generated this result transmitted reference range: 4.20 - 10.70 10*3/?L. The reference range was not used to interpret this result as normal/abnormal. RBC (test code = 789-8) 2.70 See_Comment L [Automated messa ge] The system which generated this result transmitted reference range: 4.26 - 5.52 10*6/?L. The reference range was not used to interpret this result as normal/abnormal. HGB (test code = 718-7) 8.5 g/dL 12.2-16.4 L HCT (test code = 4544-3) 24.8 % 38.4-49.3 L MCV (test code = 787-2) 91.9 fL 81.7-95.6 MCH (test code = 785-6) 31.5 pg 26.1-32.7 MCHC (test code = 786-4) 34.3 g/dL 31.2-35.0 RDW-SD (test code = 91511-4) 54.8 fL 38.5-51.6 H RDW-CV (test code = 788-0) 16.4 % 12.1-15.4 H PLT (test code = 777-3) 19 See_Comment LL [Automated [employer] ge] The system which generated this result transmitted reference range: 150 - 328 10*3/?L. The reference range was not used to interpret this result as normal/abnormal. MPV (test code = 06681-6) Not Measured IPF % (test code = 2596162482) 7.7 % 1.2-10.7 Platelet count measured by fluorescence method. NRBC/100 WBC (test code = 5859679232) 0.3 See_Comment [Automated ASP64 ssage] The system which generated this result transmitted reference range: 0.0 - 10.0 /100 WBCs. The reference range was not used to interpret this result as normal/abnormal. NRBC x10^3 (test code = 0199770186) 0.02 See_Comment [Automated [employer] ge] The system which generated this result transmitted reference range: 10*3/?L. The reference range was not used to interpret this result as normal/abnormal. GRAN MAT (NEUT) % (test code = 770-8) 59.1 % IMM GRAN % (test code = 1733144700) 10.60 % LYMPH % (test code = 736-9) 3.6 % MONO % (test code = 5905-5) 26.2 % EOS % (test code = 713-8) 0.0 % BASO % (test code = 706-2) 0.5 % GRAN MAT x10^3(ANC) (test code = 6094066049) 3.64 10*3/uL 1.99-6.95 IMM GRAN x10^3 (test code = 6229933076) 0.65 10*3/uL 0.00-0.06 H LYMPH x10^3 (test code = 731-0) 0.22 10*3/uL 1.09-3.23 L MONO x10^3 (test code = 742-7) 1.61 10*3/uL 0.36-1.02 H EOS x10^3 (test code = 711-2) 0.06-0.53 L BASO x10^3 (test code = 704-7) 0.03 10*3/uL 0.01-0.09 BANDS (test code = 4299068678) Increased A DOHLE BODIES (test code = 7792-5) Present A TOXIC CHANGES (test code = 803-7) Present A Lab Interpretation (test code = 85254-3) Abnormal [facility]. METABOLIC PANEL (89261)2022-12-27 23:39:51* Test Item Value Reference Range Interpretation Comme nts NA (test code = 7497200214) 141 mmol/L 135-145 K (test code = 1901780363) 4.1 mmol/L 3.5-5.0 CL (test code = 0206008166) 103 mmol/L 98-108 CO2 TOTAL (test code = 9181651627) 28 mmol/L 23-31 AGAP (test code = 3048087613) 10 2-16 BUN (test code = 1402037482) 12 mg/dL 7-23 GLUCOSE (test code = 3307393150) 110 mg/dL 70-110 CREATININE (test code = 8000694655) 0.62 mg/dL 0.60-1.25 TOTAL BILI (test code = 7668363621) 1.0 mg/dL 0.1-1.1 CALCIUM (test code = 2608041171) 8.6 mg/dL 8.6-10.6 T PROTEIN (test code = 5556599225) 6.2 g/dL 6.3-8.2 L ALBUMIN (test code = 3958794495) 3.4 g/dL 3.5-5.0 L ALK PHOS (test code = 1364660746) 224 U/L 34-122 H ALTv (test code = 1742-6) 134 U/L 5-50 H AST(SGOT) (test code = 7848674785) 187 U/L 13-40 H eGFR (test code = 4098456909) 134.7 mL/min/1.73m2 MONTSERRAT (test code = MONTSERRAT) Association of Glomerular Filtration Rate (GFR) and Staging of Kidney Disease* + --+ --+ ------+| GFR (mL/min/1.73 m2) ?| With Kidney Damage ?| ?Without Kidney Damage+ --------+ --------+ +| ?>90 ?| ?Stage one ?| ? Normal ?+ ---+ ---+ -------+| ?60-89 ?| ?Stage two ?| ? Decreased GFR ? + --+ --+ ------+| ?30-59 ?| ?Stage three ?| ? Stage three ? + --+ --+ ------+| ?15-29 ?| ?Stage four ? | ? Stage four ?+ ---+ ---+ -------+| ?<15 (or dialysis) ? ?| ?Stage five ? | ? Stage five ?+ ---+ ---+ -------+ *Each stage assumes the associated GFR level has been in effect for at least three months. ?Stages 1 to 5, with or without kidney disease, indicate chronic kidney disease. Notes: Determination of stages one and two (with eGFR >59mL/min/1.73 m2) requires estimation of kidney damage for at least three months as defined by structural or functional abnormalities of the kidney, manifested by either:Pathological abnormalities or Markers of kidney damage (including abnormalities in the composition of the blood or urine or abnormalities in imaging tests). Lab Interpretation (test code = 80836-1) [facility]normal [facility] [id number] 12:33:57* Test Item Value Reference Range Interpretation Comme nts URIC ACID (test code = 0861520346) 2.0 mg/dL 3.6-8.0 L Lab Interpretation (test cod e = 64081-2) Abnormal [facility] WITH [id number] 12:07:58* Test Item Value Reference Range Interpretation Comme nts WBC (test code = 6690-2) 2.75 See_Comment L [Automated [employer]] The system which generated this result transmitted reference range: 4.20 - 10.70 10*3/?L. The reference range was not used to interpret this result as normal/abnormal. RBC (test code = 789-8) 2.41 See_Comment L [Automated [employer]] The system which generated this result transmitted reference range: 4.26 - 5.52 10*6/?L. The reference range was not used to interpret this result as normal/abnormal. HGB (test code = 718-7) 7.6 g/dL 12.2-16.4 L HCT (test code = 4544-3) 21.9 % 38.4-49.3 L MCV (test code = 787-2) 90.9 fL 81.7-95.6 MCH (test code = 785-6) 31.5 pg 26.1-32.7 MCHC (test code = 786-4) 34.7 g/dL 31.2-35.0 RDW-SD (test code = 70418-5) 55.0 fL 38.5-51.6 H RDW-CV (test code = 788-0) 16.2 % 12.1-15.4 H PLT (test code = 777-3) 19 See_Comment LL [Automated [employer] ge] The system which generated this result transmitted reference range: 150 - 328 10*3/?L. The reference range was not used to interpret this result as normal/abnormal. MPV (test code = 76651-9) 11.9 fL 9.8-13.0 IPF % (test code = 9395862986) 3.7 % 1.2-10.7 Platelet count measured by fluorescence method. NRBC/100 WBC (test code = 9138568220) 0.0 See_Comment [Automated ASP64 ssage] The system which generated this result transmitted reference range: 0.0 - 10.0 /100 WBCs. The reference range was not used to interpret this result as normal/abnormal. NRBC x10^3 (test code = 4184388177) See_Comment [Automated [employer] EyeSpot] The system which generated this result transmitted reference range: 10*3/?L. The reference range was not used to interpret this result as normal/abnormal. GRAN MAT (NEUT) % (test code = 770-8) 50.9 % IMM GRAN % (test code = 2309731301) 12.70 % LYMPH % (test code = 736-9) 6.9 % MONO % (test code = 5905-5) 29.1 % EOS % (test code = 713-8) 0.0 % BASO % (test code = 706-2) 0.4 % GRAN MAT x10^3(ANC) (test code = 7957817897) 1.40 10*3/uL 1.99-6.95 L IMM GRAN x10^3 (test code = 5167510338) 0.35 10*3/uL 0.00-0.06 H LYMPH x10^3 (test code = 731-0) 0.19 10*3/uL 1.09-3.23 L MONO x10^3 (test code = 742-7) 0.80 10*3/uL 0.36-1.02 EOS x10^3 (test code = 711-2) 0.06-0.53 L BASO x10^3 (test code = 704-7) 0.01-0.09 DOHLE BODIES (test code = 7792-5) Present A Lab Interpretation (test code = 64805-1) Abnormal [facility]. METABOLIC PANEL (55336)2022-12-26 12:00:59* Test Item Value Reference Range Interpretation Comme nts NA (test code = 6950579039) 140 mmol/L 135-145 K (test code = 1073021940) 3.4 mmol/L 3.5-5.0 L CL (test code = 2636775100) 104 mmol/L 98-108 CO2 TOTAL (test code = 3628795178) 28 mmol/L 23-31 AGAP (test code = 1264062069) 8 2-16 BUN (test code = 8127430520) 8 mg/dL 7-23 GLUCOSE (test code = 9596898370) 107 mg/dL 70-110 CREATININE (test code = 1787670240) 0.56 mg/dL 0.60-1.25 L TOTAL BILI (test code = 5904907712) 1.0 mg/dL 0.1-1.1 CALCIUM (test code = 4566512899) 8.4 mg/dL 8.6-10.6 L T PROTEIN (test code = 1917411757) 5.6 g/dL 6.3-8.2 L ALBUMIN (test code = 7916977313) 2.8 g/dL 3.5-5.0 L ALK PHOS (test code = 5842815225) 156 U/L 34-122 H ALTv (test code = 1742-6) 106 U/L 5-50 H AST(SGOT) (test code = 5391851248) 121 U/L 13-40 H eGFR (test code = 6449677876) 151.5 mL/min/1.73m2 MONTSERRAT (test code = MONTSERRAT) Association of Glomerular Filtration Rate (GFR) and Staging of Kidney Disease* + --+ --+ ------+| GFR (mL/min/1.73 m2) ?| With Kidney Damage ?| ?Without Kidney Damage+ --------+ --------+ +| ?>90 ?| ?Stage one ?| ? Normal ?+ ---+ ---+ -------+| ?60-89 ?| ?Stage two ?| ? Decreased GFR ? + --+ --+ ------+| ?30-59 ?| ?Stage three ?| ? Stage three ? + --+ --+ ------+| ?15-29 ?| ?Stage four ? | ? Stage four ?+ ---+ ---+ -------+| ?<15 (or dialysis) ? ?| ?Stage five ? | ? Stage five ?+ ---+ ---+ -------+ *Each stage assumes the associated GFR level has been in effect for at least three months. ?Stages 1 to 5, with or without kidney disease, indicate chronic kidney disease. Notes: Determination of stages one and two (with eGFR >59mL/min/1.73 m2) requires estimation of kidney damage for at least three months as defined by structural or functional abnormalities of the kidney, manifested by either:Pathological abnormalities or Markers of kidney damage (including abnormalities in the composition of the blood or urine or abnormalities in imaging tests). Lab Interpretation (test code = 81992-6) [facility] 12:00:59* Test Item Value Reference Range Interpretation Comme nts PHOSPHORUS (test code = 6400233819) 4.1 mg/dL 2.5-5.0 Lab Interpretation (test cod e = 90425-1) Normal [facility] 12:00:59* Test Item Value Reference Range Interpretation Comme nts MAGNESIUM (test code = 9434432988) 1.7 mg/dL 1.7-2.4 Lab Interpretation (test cod e = 35789-3) [facility] Irving[facility] Platelets (in units): 1 Units~Indication: 1) Platelets < 10,000 for bleeding prophylaxis; Special Requirements: Otnbrofbwsxk0586-49-94 16:58:24* Test Item Value Reference Range Interpretation Comme nts Unit Blood Type (test code = 4410) O Pos ISBT Blood Type Code (test code = 161603) 5100 Unit Number (test code = 4411) [id number] Blood Expiration Date & Time (test code = 618866) 680439855631 Status Information (test code = 4412) Issued Product Identification (test code = 4413) Platelets Product Code (test code = 4414) [id number] Performed at [address] Free: [phone] No. [id number] [facility] Packed RBC (in units), 1 Units 2022-12-25 13:44:51* Test Item Value Reference Range Interpretation Comme [facility] Cross Match Result (test code = 4409) Compatible ISBT Blood Type Code (test code = 656050) 5100 Unit Blood Type (test code = 4410) O Pos Unit Number (test code = 4411) [id number] Blood Expiration Date & Time (test code = 641794) 997178542058 Status Information (test code = 4412) Issued Product Identification (test code = 4413) Red Blood Cells Product Code (test code = 4414) [id number] Performed at [address] Free: [phone] No. [id number] [facility] Platelets (in units): 1 Units~Indication: 1) Platelets < 10,000 for bleeding prophylaxis; Special Requirements: Kbrrxwavzjjl0449-15-87 14:54:39* Test Item Value Reference Range Interpretation Comme nts Unit Blood Type (test code = 4410) O Pos ISBT Blood Type Code (test code = 424409) 5100 Unit Number (test code = 4411) [id number] Blood Expiration Date & Time (test code = 135845) 285823934993 Status Information (test code = 4412) Issued Product Identification (test code = 4413) Platelets Product Code (test code = 4414) [id number] Performed at [place] [address]oll Free: [phone] No. [id number] [facility] WITH [id number] 12:11:03* Test Item Value Reference Range Interpretation Comme nts WBC (test code = 6690-2) 0.49 See_Comment LL [Automated messa ge] The system which generated this result transmitted reference range: 4.20 - 10.70 10*3/?L. The reference range was not used to interpret this result as normal/abnormal. RBC (test code = 789-8) 2.17 See_Comment L [Automated messa ge] The system which generated this result transmitted reference range: 4.26 - 5.52 10*6/?L. The reference range was not used to interpret this result as normal/abnormal. HGB (test code = 718-7) 7.0 g/dL 12.2-16.4 L HCT (test code = 4544-3) 20.5 % 38.4-49.3 L MCV (test code = 787-2) 94.5 fL 81.7-95.6 MCH (test code = 785-6) 32.3 pg 26.1-32.7 MCHC (test code = 786-4) 34.1 g/dL 31.2-35.0 RDW-SD (test code = 73100-6) 53.5 fL 38.5-51.6 H RDW-CV (test code = 788-0) 15.5 % 12.1-15.4 H PLT (test code = 777-3) 10 See_Comment LL [Automated messa ge] The system which generated this result transmitted reference range: 150 - 328 10*3/?L. The reference range was not used to interpret this result as normal/abnormal. MPV (test code = 69663-5) 10.9 fL 9.8-13.0 IPF % (test code = 7373452711) 2.2 % 1.2-10.7 Platelet count measured by fluorescence method. NRBC/100 WBC (test code = 5733216679) 0.0 See_Comment [Automated ASP64 ssage] The system which generated this result transmitted reference range: 0.0 - 10.0 /100 WBCs. The reference range was not used to interpret this result as normal/abnormal. NRBC x10^3 (test code = 4724023764) See_Comment [Automated messa ge] The system which generated this result transmitted reference range: 10*3/?L. The reference range was not used to interpret this result as normal/abnormal. SEG % (test code = 71666-8) 30 % 33-76 L BAND % (test code = 65780-9) 8 % 0-1 H LYMPH % (test code = 18428-8) 23 % 14-54 REACT LYMPH % (test code = 9727359833) 1 % MONO % (test code = 23542-3) 38 % 0-4 H ANC (test code = 753-4) 0.19 10*3/uL 1.99-6.95 L DOHLE BODIES (test code = 7792-5) Present A Lab Interpretation (test code = 47596-8) [facility]normal [facility] [id number] 11:46:34* Test Item Value Reference Range Interpretation Comme nts URIC ACID (test code = 7301331405) 1.9 mg/dL 3.6-8.0 L Lab Interpretation (test cod e = 54076-0) [facility]normal [facility] OJQDCSAECAMSQ6784-23-97 11:46:34* Test Item Value Reference Range Interpretation Comme nts LDH (test code = 2266057625) 176 U/L 120-246 Lab Interpretation (test cod e = 42157-5) [facility]23[facility] 11:46:34* Test Item Value Reference Range Interpretation Comme nts PHOSPHORUS (test code = 8170569875) 3.7 mg/dL 2.5-5.0 Lab Interpretation (test cod e = 32965-8) Normal [facility] 11:46:34* Test Item Value Reference Range Interpretation Comme nts MAGNESIUM (test code = 0009328666) 1.7 mg/dL 1.7-2.4 Lab Interpretation (test cod e = 21640-3) [facility] METABOLIC PANEL (38860)2022-12-24 11:46:33* Test Item Value Reference Range Interpretation Comme nts NA (test code = 5851190581) 141 mmol/L 135-145 K (test code = 9104174776) 3.6 mmol/L 3.5-5.0 CL (test code = 9930088194) 105 mmol/L 98-108 CO2 TOTAL (test code = 8627502615) 28 mmol/L 23-31 AGAP (test code = 7634168202) 8 2-16 BUN (test code = 6849941288) 11 mg/dL 7-23 GLUCOSE (test code = 9986880293) 105 mg/dL 70-110 CREATININE (test code = 5487035567) 0.57 mg/dL 0.60-1.25 L TOTAL BILI (test code = 2847053774) 1.1 mg/dL 0.1-1.1 CALCIUM (test code = 9539025284) 8.3 mg/dL 8.6-10.6 L T PROTEIN (test code = 8365084866) 5.5 g/dL 6.3-8.2 L ALBUMIN (test code = 3163547536) 2.9 g/dL 3.5-5.0 L ALK PHOS (test code = 2626046251) 109 U/L 34-122 ALTv (test code = 1742-6) 103 U/L 5-50 H AST(SGOT) (test code = 0135798111) 158 U/L 13-40 H eGFR (test code = 5812910806) 148.4 mL/min/1.73m2 MONTSERRAT (test code = MONTSERRAT) Association of Glomerular Filtration Rate (GFR) and Staging of Kidney Disease* + --+ --+ ------+| GFR (mL/min/1.73 m2) ?| With Kidney Damage ?| ?Without Kidney Damage+ --------+ --------+ +| ?>90 ?| ?Stage one ?| ? Normal ?+ ---+ ---+ -------+| ?60-89 ?| ?Stage two ?| ? Decreased GFR ? + --+ --+ ------+| ?30-59 ?| ?Stage three ?| ? Stage three ? + --+ --+ ------+| ?15-29 ?| ?Stage four ? | ? Stage four ?+ ---+ ---+ -------+| ?<15 (or dialysis) ? ?| ?Stage five ? | ? Stage five ?+ ---+ ---+ -------+ *Each stage assumes the associated GFR level has been in effect for at least three months. ?Stages 1 to 5, with or without kidney disease, indicate chronic kidney disease. Notes: Determination of stages one and two (with eGFR >59mL/min/1.73 m2) requires estimation of kidney damage for at least three months as defined by structural or functional abnormalities of the kidney, manifested by either:Pathological abnormalities or Markers of kidney damage (including abnormalities in the composition of the blood or urine or abnormalities in imaging tests). Lab Interpretation (test code = 03873-4) Abnormal [facility] WITH [id number] 22:55:09* Test Item Value Reference Range Interpretation Comme nts WBC (test code = 6690-2) 0.35 See_Comment LL [Automated [employer]] The system which generated this result transmitted reference range: 4.20 - 10.70 10*3/?L. The reference range was not used to interpret this result as normal/abnormal. RBC (test code = 789-8) 2.15 See_Comment L [Automated [employer]a [employer]] The system which generated this result transmitted reference range: 4.26 - 5.52 10*6/?L. The reference range was not used to interpret this result as normal/abnormal. HGB (test code = 718-7) 7.1 g/dL 12.2-16.4 L HCT (test code = 4544-3) 20.1 % 38.4-49.3 L MCV (test code = 787-2) 93.5 fL 81.7-95.6 MCH (test code = 785-6) 33.0 pg 26.1-32.7 H MCHC (test code = 786-4) 35.3 g/dL 31.2-35.0 H RDW-SD (test code = 82880-2) 54.0 fL 38.5-51.6 H RDW-CV (test code = 788-0) 15.7 % 12.1-15.4 H PLT (test code = 777-3) 14 See_Comment LL [Automated [employer]] The system which generated this result transmitted reference range: 150 - 328 10*3/?L. The reference range was not used to interpret this result as normal/abnormal. MPV (test code = 67044-6) 9.5 fL 9.8-13.0 L IPF % (test code = 7095453825) 2.0 % 1.2-10.7 Platelet count measured by fluorescence method. NRBC/100 WBC (test code = 1363826152) 0.0 See_Comment [Automated me ssage] The system which generated this result transmitted reference range: 0.0 - 10.0 /100 WBCs. The reference range was not used to interpret this result as normal/abnormal. NRBC x10^3 (test code = 0496648622) See_Comment [Automated messa ge] The system which generated this result transmitted reference range: 10*3/?L. The reference range was not used to interpret this result as normal/abnormal. SEG % (test code = 30061-1) 19 % 33-76 L BAND % (test code = 70430-8) 13 % 0-1 H LYMPH % (test code = 73996-0) 65 % 14-54 H MONO % (test code = 25506-1) 3 % 0-4 ANC (test code = 753-4) 0.12 10*3/uL 1.99-6.95 L Lab Interpretation (test code = 94328-6) Abnormal [facility] Platelets (in units): 1 Units~Indication: 1) Platelets < 10,000 for bleeding prophylaxis; Special Requirements: [id number] 20:39:55* Test Item Value Reference Range Interpretation Comme nts Unit Blood Type (test code = 4410) A Pos ISBT Blood Type Code (test code = 384260 6202 Unit Number (test code = 4411) [id number] Blood Expiration Date & Time (test code = 867887) [id number] Status Information (test code = 4412) Issued Product Identification (test code = 4413) Platelets Product Code (test code = 4414) [id number] Performed at [facility] B Laboratory Services - [facility] Blood [id number] [place] [id number] Free: [phone] No. [id number] [facility] Packed RBC (in units), 1 Units 2022-12-23 04:55:42* Test Item Value Reference Range Interpretation Comme [facility] Cross Match Result (test code = 4409) Compatible ISBT Blood Type Code (test code = 599936) 5100 Unit Blood Type (test code = 4410) O Pos Unit Number (test code = 4411) [id number] Blood Expiration Date & Time (test code = 515276) 823075030207 Status Information (test code = 4412) Issued Product Identification (test code = 4413) Red Blood Cells Product Code (test code = 4414) [id number] Performed at [address] [address]Njgt Free: [phone] No. [id number] [facility] Platelets (in units): 1 Units~Indication: 1) Platelets < 10,000 for bleeding pephigfnyxu1777-70-37 03:08:50* Test Item Value Reference Range Interpretation Comme [facility] Unit Blood Type (test code = 4410) O Pos ISBT Blood Type Code (test code = 253150) 5100 Unit Number (test code = 4411) [id number] Blood Expiration Date & Time (test code = 589280) 329896445941 Status Information (test code = 4412) Issued Product Identification (test code = 4413) Platelets Product Code (test code = 4414) [id number] Performed at [address] [address]Fgut Free: [phone] No. [id number] [facility] Platelets (in units): 2 Units~Indication: 1) Platelets < 10,000 for bleeding prophylaxis; Special Requirements: Yhuehsioxgpa3251-27-23 22:35:34* Test Item Value Reference Range Interpretation Comme [facility] Unit Blood Type (test code = 4410) B Pos ISBT Blood Type Code (test code = 271099) 7300 Unit Number (test code = 4411) [id number] Blood Expiration Date & Time (test code = 959665) 644729769166 Status Information (test code = 4412) Issued Product Identification (test code = 4413) Platelets Product Code (test code = 4414) [id number] Performed at [facility] Laboratory Services - [facility] Blood [address] [address]Mych Free: [phone] No. [id number] [facility] WITH PUUP9831-15-61 12:16:10* Test Item Value Reference Range Interpretation Comme nts WBC (test code = 6690-2) 0.10 See_Comment LL [Automated messa ge] The system which generated this result transmitted reference range: 4.20 - 10.70 10*3/?L. The reference range was not used to interpret this result as normal/abnormal. RBC (test code = 789-8) 2.18 See_Comment L [Automated messa ge] The system which generated this result transmitted reference range: 4.26 - 5.52 10*6/?L. The reference range was not used to interpret this result as normal/abnormal. HGB (test code = 718-7) 7.3 g/dL 12.2-16.4 L HCT (test code = 4544-3) 20.8 % 38.4-49.3 L MCV (test code = 787-2) 95.4 fL 81.7-95.6 MCH (test code = 785-6) 33.5 pg 26.1-32.7 H MCHC (test code = 786-4) 35.1 g/dL 31.2-35.0 H RDW-SD (test code = 85458-5) 54.4 fL 38.5-51.6 H RDW-CV (test code = 788-0) 15.5 % 12.1-15.4 H PLT (test code = 777-3) 3 See_Comment LL [Automated messa ge] The system which generated this result transmitted reference range: 150 - 328 10*3/?L. The reference range was not used to interpret this result as normal/abnormal. MPV (test code = 67094-6) Not Measured IPF % (test code = 8654712010) 0.9 % 1.2-10.7 L The IPF value ma y not be reliable when the patient's platelet count is less than 10 x 10*3/uL due to the higher imprecision of the IPF at low counts. Platelet count measured by fluorescence method. NRBC/100 WBC (test code = 9710612325) 0.0 See_Comment [Automated me ssage] The system which generated this result transmitted reference range: 0.0 - 10.0 /100 WBCs. The reference range was not used to interpret this result as normal/abnormal. NRBC x10^3 (test code = 3471578758) See_Comment [Automated messa ge] The system which generated this result transmitted reference range: 10*3/?L. The reference range was not used to interpret this result as normal/abnormal. GRAN MAT (NEUT) % (test code = 770-8) 10.0 % IMM GRAN % (test code = 3195441029) 0.00 % LYMPH % (test code = 736-9) 70.0 % MONO % (test code = 5905-5) 20.0 % EOS % (test code = 713-8) 0.0 % BASO % (test code = 706-2) 0.0 % GRAN MAT x10^3(ANC) (test code = 9581137867) 1.99-6.95 L IMM GRAN x10^3 (test code = 2147126641) 0.00-0.06 LYMPH x10^3 (test code = 731-0) 0.07 10*3/uL 1.09-3.23 L MONO x10^3 (test code = 742-7) 0.36-1.02 L EOS x10^3 (test code = 711-2) 0.06-0.53 L BASO x10^3 (test code = 704-7) 0.01-0.09 Lab Interpretation (test code = 00570-4) [facility] 12:06:20* Test Item Value Reference Range Interpretation Comme nts MAGNESIUM (test code = 4387131357) 1.7 mg/dL 1.7-2.4 Lab Interpretation (test cod e = 24733-3) Normal [facility] EVWDHAJGEANSR2515-38-82 12:06:20* Test Item Value Reference Range Interpretation Comme nts LDH (test code = 2960258507) 135 U/L 120-246 Lab Interpretation (test cod e = 23265-9) Normal [facility] (72981)2022-12-22 12:06:20* Test Item Value Reference Range Interpretation Comme nts NA (test code = 1052044612) 137 mmol/L 135-145 K (test code = 2860534320) 3.6 mmol/L 3.5-5.0 CL (test code = 5125022285) 101 mmol/L 98-108 CO2 TOTAL (test code = 7855285071) 28 mmol/L 23-31 AGAP (test code = 3546580287) 8 2-16 BUN (test code = 6879528141) 12 mg/dL 7-23 GLUCOSE (test code = 5493891454) 120 mg/dL 70-110 H CREATININE (test code = 9208020120) 0.58 mg/dL 0.60-1.25 L TOTAL BILI (test code = 4648301740) 1.6 mg/dL 0.1-1.1 H CALCIUM (test code = 5306810004) 8.1 mg/dL 8.6-10.6 L T PROTEIN (test code = 8817293432) 5.9 g/dL 6.3-8.2 L ALBUMIN (test code = 5882927715) 3.1 g/dL 3.5-5.0 L ALK PHOS (test code = 0802816025) 105 U/L 34-122 ALTv (test code = 1742-6) 107 U/L 5-50 H AST(SGOT) (test code = 5545468998) 93 U/L 13-40 H eGFR (test code = 0153133994) 145.5 mL/min/1.73m2 MONTSERRAT (test code = MONTSERRAT) Association of Glomerular Filtration Rate (GFR) and Staging of Kidney Disease* + --+ --+ ------+| GFR (mL/min/1.73 m2) ?| With Kidney Damage ?| ?Without Kidney Damage+ --------+ --------+ +| ?>90 ?| ?Stage one ?| ? Normal ?+ ---+ ---+ -------+| ?60-89 ?| ?Stage two ?| ? Decreased GFR ? + --+ --+ ------+| ?30-59 ?| ?Stage three ?| ? Stage three ? + --+ --+ ------+| ?15-29 ?| ?Stage four ? | ? Stage four ?+ ---+ ---+ -------+| ?<15 (or dialysis) ? ?| ?Stage five ? | ? Stage five ?+ ---+ ---+ -------+ *Each stage assumes the associated GFR level has been in effect for at least three months. ?Stages 1 to 5, with or without kidney disease, indicate chronic kidney disease. Notes: Determination of stages one and two (with eGFR >59mL/min/1.73 m2) requires estimation of kidney damage for at least three months as defined by structural or functional abnormalities of the kidney, manifested by either:Pathological abnormalities or Markers of kidney damage (including abnormalities in the composition of the blood or urine or abnormalities in imaging tests). Lab Interpretation (test code = 35452-8) [facility]normal [facility] ETQG6180-34-94 12:06:20* Test Item Value Reference Range Interpretation Comme nts URIC ACID (test code = 3361499172) 1.5 mg/dL 3.6-8.0 L Lab Interpretation (test cod e = 41088-0) [facility]normal [facility] Plate[facility] (in units): 1 Units~Indication: 1) Platelets < 10,000 for bleeding ipgvivujnla3997-05-78 14:54:05* Test Item Value Reference Range Interpretation Comme nts Unit Blood Type (test code = 4410) O Pos ISBT Blood Type Code (test code = 749731) 5100 Unit Number (test code = 4411) [id number] Blood Expiration Date & Time (test code = 190344) 114805685135 Status Information (test code = 4412) Issued Product Identification (test code = 4413) Platelets Product Code (test code = 4414) [id number] Performed at [facility] B Laboratory Services - [facility] Blood [address] [place] [address]Aqos Free: [phone] No. [id number] [facility] WITH [id number] 12:19:20* Test Item Value Reference Range Interpretation Comme nts WBC (test code = 6690-2) 0.06 See_Comment LL [Automated messa ge] The system which generated this result transmitted reference range: 4.20 - 10.70 10*3/?L. The reference range was not used to interpret this result as normal/abnormal. RBC (test code = 789-8) 2.27 See_Comment L [Automated DineGasma ge] The system which generated this result transmitted reference range: 4.26 - 5.52 10*6/?L. The reference range was not used to interpret this result as normal/abnormal. HGB (test code = 718-7) 7.5 g/dL 12.2-16.4 L HCT (test code = 4544-3) 21.3 % 38.4-49.3 L MCV (test code = 787-2) 93.8 fL 81.7-95.6 MCH (test code = 785-6) 33.0 pg 26.1-32.7 H MCHC (test code = 786-4) 35.2 g/dL 31.2-35.0 H RDW-SD (test code = 54217-7) 54.0 fL 38.5-51.6 H RDW-CV (test code = 788-0) 15.7 % 12.1-15.4 H PLT (test code = 777-3) 4 See_Comment LL [Automated DineGasma ge] The system which generated this result transmitted reference range: 150 - 328 10*3/?L. The reference range was not used to interpret this result as normal/abnormal. MPV (test code = 71917-7) Not Measured IPF % (test code = 7212490017) 1.3 % 1.2-10.7 The IPF value ma y not be reliable when the patient's platelet count is less than 10 x 10*3/uL due to the higher imprecision of the IPF at low counts. Platelet count measured by fluorescence method. NRBC/100 WBC (test code = 2494735205) 0.0 See_Comment [Automated ASP64 ssage] The system which generated this result transmitted reference range: 0.0 - 10.0 /100 WBCs. The reference range was not used to interpret this result as normal/abnormal. NRBC x10^3 (test code = 1819599804) See_Comment [Automated DineGasma ge] The system which generated this result transmitted reference range: 10*3/?L. The reference range was not used to interpret this result as normal/abnormal. GRAN MAT (NEUT) % (test code = 770-8) 0.0 % IMM GRAN % (test code = 8058368973) 0.00 % LYMPH % (test code = 736-9) 100.0 % MONO % (test code = 5905-5) 0.0 % EOS % (test code = 713-8) 0.0 % BASO % (test code = 706-2) 0.0 % GRAN MAT x10^3(ANC) (test code = 6687452676) 1.99-6.95 L IMM GRAN x10^3 (test code = 1989017936) 0.00-0.06 LYMPH x10^3 (test code = 731-0) 0.06 10*3/uL 1.09-3.23 L MONO x10^3 (test code = 742-7) 0.36-1.02 L EOS x10^3 (test code = 711-2) 0.06-0.53 L BASO x10^3 (test code = 704-7) 0.01-0.09 Lab Interpretation (test code = 45081-5) Abnormal [facility] [id number] 11:48:04* Test Item Value Reference Range Interpretation Comme nts URIC ACID (test code = 1014598858) 1.8 mg/dL 3.6-8.0 L Lab Interpretation (test cod e = 21519-1) Abnormal [facility] AMQCRPMEVHFCF0018-62-95 11:48:04* Test Item Value Reference Range Interpretation Comme nts LDH (test code = 2158319216) 165 U/L 120-246 Lab Interpretation (test cod e = 77056-9) Normal [facility] MET[facility]OLIC PANEL (38892)2022-12-21 11:48:04* Test Item Value Reference Range Interpretation Comme nts NA (test code = 0081391126) 136 mmol/L 135-145 K (test code = 1204581399) 3.5 mmol/L 3.5-5.0 CL (test code = 8047575562) 103 mmol/L 98-108 CO2 TOTAL (test code = 5051206257) 28 mmol/L 23-31 AGAP (test code = 3091491369) 5 2-16 BUN (test code = 4922913002) 12 mg/dL 7-23 GLUCOSE (test code = 6703365821) 128 mg/dL 70-110 H CREATININE (test code = 3490298219) 0.50 mg/dL 0.60-1.25 L TOTAL BILI (test code = 3187106655) 2.0 mg/dL 0.1-1.1 H CALCIUM (test code = 8671902766) 8.2 mg/dL 8.6-10.6 L T PROTEIN (test code = 3138570718) 5.8 g/dL 6.3-8.2 L ALBUMIN (test code = 6535496946) 3.0 g/dL 3.5-5.0 L ALK PHOS (test code = 8390886158) 102 U/L 34-122 ALTv (test code = 1742-6) 127 U/L 5-50 H AST(SGOT) (test code = 2178943107) 146 U/L 13-40 H eGFR (test code = 7755395425) 172.6 mL/min/1.73m2 MONTSERRAT (test code = MONTSERRAT) Association of Glomerular Filtration Rate (GFR) and Staging of Kidney Disease* + --+ --+ ------+| GFR (mL/min/1.73 m2) ?| With Kidney Damage ?| ?Without Kidney Damage+ --------+ --------+ +| ?>90 ?| ?Stage one ?| ? Normal ?+ ---+ ---+ -------+| ?60-89 ?| ?Stage two ?| ? Decreased GFR ? + --+ --+ ------+| ?30-59 ?| ?Stage three ?| ? Stage three ? + --+ --+ ------+| ?15-29 ?| ?Stage four ? | ? Stage four ?+ ---+ ---+ -------+| ?<15 (or dialysis) ? ?| ?Stage five ? | ? Stage five ?+ ---+ ---+ -------+ *Each stage assumes the associated GFR level has been in effect for at least three months. ?Stages 1 to 5, with or without kidney disease, indicate chronic kidney disease. Notes: Determination of stages one and two (with eGFR >59mL/min/1.73 m2) requires estimation of kidney damage for at least three months as defined by structural or functional abnormalities of the kidney, manifested by either:Pathological abnormalities or Markers of kidney damage (including abnormalities in the composition of the blood or urine or abnormalities in imaging tests). Lab Interpretation (test code = 92680-4) [facility]normal [facility]2023-06-30 11:48:04* Test Item Value Reference Range Interpretation Comme nts PHOSPHORUS (test code = 1056830169) 2.9 mg/dL 2.5-5.0 Lab Interpretation (test cod e = 38378-8) Normal [facility]2023-06-30 11:48:04* Test Item Value Reference Range Interpretation Comme nts MAGNESIUM (test code = 4546349400) 1.7 mg/dL 1.7-2.4 Lab Interpretation (test cod e = 25807-9) [facility] Platelets (in units): 1 Units~Indication: 1) Platelets < 10,000 for bleeding prophylaxis; Special Requirements: Mzcmfmzwwmmu1146-53-34 17:00:39* Test Item Value Reference Range Interpretation Comme nts Unit Blood Type (test code = 4410) B Pos ISBT Blood Type Code (test code = 798442) 7300 Unit Number (test code = 4411) [id number] Blood Expiration Date & Time (test code = 273085) [id number] Status Information (test code = 4412) Issued Product Identification (test code = 4413) Platelets Product Code (test code = 4414) [id number] Performed at [facility] B Laboratory Services - [facility] Blood [address] [place] [address]Mdxn Free: [phone] No. [id number] [facility] Irving[facility] WITH UQPW3757-06-76 12:27:26* Test Item Value Reference Range Interpretation Comme nts WBC (test code = 6690-2) 0.06 See_Comment LL [Automated messa ge] The system which generated this result transmitted reference range: 4.20 - 10.70 10*3/?L. The reference range was not used to interpret this result as normal/abnormal. RBC (test code = 789-8) 2.31 See_Comment L [Automated DineGasma ge] The system which generated this result transmitted reference range: 4.26 - 5.52 10*6/?L. The reference range was not used to interpret this result as normal/abnormal. HGB (test code = 718-7) 7.6 g/dL 12.2-16.4 L HCT (test code = 4544-3) 21.9 % 38.4-49.3 L MCV (test code = 787-2) 94.8 fL 81.7-95.6 MCH (test code = 785-6) 32.9 pg 26.1-32.7 H MCHC (test code = 786-4) 34.7 g/dL 31.2-35.0 RDW-SD (test code = 28994-7) 54.8 fL 38.5-51.6 H RDW-CV (test code = 788-0) 15.9 % 12.1-15.4 H PLT (test code = 777-3) 5 See_Comment LL [Automated DineGasma ge] The system which generated this result transmitted reference range: 150 - 328 10*3/?L. The reference range was not used to interpret this result as normal/abnormal. MPV (test code = 02456-5) 9.4 fL 9.8-13.0 L IPF % (test code = 7076343079) 1.3 % 1.2-10.7 The IPF value ma y not be reliable when the patient's platelet count is less than 10 x 10*3/uL due to the higher imprecision of the IPF at low counts. Platelet count measured by fluorescence method. NRBC/100 WBC (test code = 5756559395) 0.0 See_Comment [Automated ASP64 ssage] The system which generated this result transmitted reference range: 0.0 - 10.0 /100 WBCs. The reference range was not used to interpret this result as normal/abnormal. NRBC x10^3 (test code = 0208586157) See_Comment [Automated DineGasma ge] The system which generated this result transmitted reference range: 10*3/?L. The reference range was not used to interpret this result as normal/abnormal. GRAN MAT (NEUT) % (test code = 770-8) 16.7 % IMM GRAN % (test code = 6138173107) 0.00 % LYMPH % (test code = 736-9) 83.3 % MONO % (test code = 5905-5) 0.0 % EOS % (test code = 713-8) 0.0 % BASO % (test code = 706-2) 0.0 % GRAN MAT x10^3(ANC) (test code = 3324064534) 1.99-6.95 L IMM GRAN x10^3 (test code = 7934162309) 0.00-0.06 LYMPH x10^3 (test code = 731-0) 0.05 10*3/uL 1.09-3.23 L MONO x10^3 (test code = 742-7) 0.36-1.02 L EOS x10^3 (test code = 711-2) 0.06-0.53 L BASO x10^3 (test code = 704-7) 0.01-0.09 Lab Interpretation (test code = 22440-6) Abnormal [facility] MBAX2107-74-46 12:06:04* Test Item Value Reference Range Interpretation Comme nts URIC ACID (test code = 1176774873) 1.7 mg/dL 3.6-8.0 L Lab Interpretation (test cod e = 63431-7) Abnormal [facility] IDPAFVCDKYWXZ3368-03-60 12:06:04* Test Item Value Reference Range Interpretation Comme nts LDH (test code = 0170488108) 158 U/L 120-246 Lab Interpretation (test cod e = 87534-5) Normal [facility]2023-06-29 12:06:04* Test Item Value Reference Range Interpretation Comme nts PHOSPHORUS (test code = 3088500980) 3.1 mg/dL 2.5-5.0 Lab Interpretation (test cod e = 22571-9) Normal [facility]2023-06-29 12:06:04* Test Item Value Reference Range Interpretation Comme nts MAGNESIUM (test code = 0493704873) 1.8 mg/dL 1.7-2.4 Lab Interpretation (test cod e = 32510-9) Normal [facility] METABOLIC PANEL (67794)2022-12-20 12:06:03* Test Item Value Reference Range Interpretation Comme nts NA (test code = 3124344866) 138 mmol/L 135-145 K (test code = 1509591605) 4.0 mmol/L 3.5-5.0 CL (test code = 0257368545) 105 mmol/L 98-108 CO2 TOTAL (test code = 2393164763) 27 mmol/L 23-31 AGAP (test code = 2076584081) 6 2-16 BUN (test code = 4474638445) 12 mg/dL 7-23 GLUCOSE (test code = 3550815900) 98 mg/dL 70-110 CREATININE (test code = 5577897295) 0.52 mg/dL 0.60-1.25 L TOTAL BILI (test code = 6927090916) 1.7 mg/dL 0.1-1.1 H CALCIUM (test code = 4567694394) 8.1 mg/dL 8.6-10.6 L T PROTEIN (test code = 4027553666) 5.9 g/dL 6.3-8.2 L ALBUMIN (test code = 9193289252) 3.0 g/dL 3.5-5.0 L ALK PHOS (test code = 8939918324) 110 U/L 34-122 ALTv (test code = 1742-6) 123 U/L 5-50 H AST(SGOT) (test code = 1699103360) 105 U/L 13-40 H eGFR (test code = 9923360275) 165.0 mL/min/1.73m2 MONTSERRAT (test code = MONTSERRAT) Association of Glomerular Filtration Rate (GFR) and Staging of Kidney Disease* + --+ --+ ------+| GFR (mL/min/1.73 m2) ?| With Kidney Damage ?| ?Without Kidney Damage+ --------+ --------+ +| ?>90 ?| ?Stage one ?| ? Normal ?+ ---+ ---+ -------+| ?60-89 ?| ?Stage two ?| ? Decreased GFR ? + --+ --+ ------+| ?30-59 ?| ?Stage three ?| ? Stage three ? + --+ --+ ------+| ?15-29 ?| ?Stage four ? | ? Stage four ?+ ---+ ---+ -------+| ?<15 (or dialysis) ? ?| ?Stage five ? | ? Stage five ?+ ---+ ---+ -------+ *Each stage assumes the associated GFR level has been in effect for at least three months. ?Stages 1 to 5, with or without kidney disease, indicate chronic kidney disease. Notes: Determination of stages one and two (with eGFR >59mL/min/1.73 m2) requires estimation of kidney damage for at least three months as defined by structural or functional abnormalities of the kidney, manifested by either:Pathological abnormalities or Markers of kidney damage (including abnormalities in the composition of the blood or urine or abnormalities in imaging tests). Lab Interpretation (test code = 46498-8) [facility]normal [facility] Platelets (in units): 1 Units~Indication: 1) Platelets < 10,000 for bleeding prophylaxis; Special Requirements: Alyuztjpislt0246-30-00 18:23:40* Test Item Value Reference Range Interpretation Comme nts Unit Blood Type (test code = 4410) A Pos ISBT Blood Type Code (test code = 790269) 6200 Unit Number (test code = 4411) [id number] Blood Expiration Date & Time (test code = 502622) [id number] Status Information (test code = 4412) Issued Product Identification (test code = 4413) Platelets Product Code (test code = 4414) [id number] Performed at [facility] Laboratory Services [facility] Blood [address] [address]Fmgu Free: [phone] No. [id number] [facility] WITH LWXM2380-02-44 13:11:40* Test Item Value Reference Range Interpretation Comme nts WBC (test code = 6690-2) 0.05 See_Comment LL [Automated messa ge] The system which generated this result transmitted reference range: 4.20 - 10.70 10*3/?L. The reference range was not used to interpret this result as normal/abnormal. RBC (test code = 789-8) 2.44 See_Comment L [Automated messa ge] The system which generated this result transmitted reference range: 4.26 - 5.52 10*6/?L. The reference range was not used to interpret this result as normal/abnormal. HGB (test code = 718-7) 8.1 g/dL 12.2-16.4 L HCT (test code = 4544-3) 23.0 % 38.4-49.3 L MCV (test code = 787-2) 94.3 fL 81.7-95.6 MCH (test code = 785-6) 33.2 pg 26.1-32.7 H MCHC (test code = 786-4) 35.2 g/dL 31.2-35.0 H RDW-SD (test code = 15101-3) 56.0 fL 38.5-51.6 H RDW-CV (test code = 788-0) 16.3 % 12.1-15.4 H PLT (test code = 777-3) 9 See_Comment LL [Automated DineGasma ge] The system which generated this result transmitted reference range: 150 - 328 10*3/?L. The reference range was not used to interpret this result as normal/abnormal. MPV (test code = 65868-0) 10.6 fL 9.8-13.0 IPF % (test code = 3579697343) 1.8 % 1.2-10.7 The IPF value ma y not be reliable when the patient's platelet count is less than 10 x 10*3/uL due to the higher imprecision of the IPF at low counts. Platelet count measured by fluorescence method. NRBC/100 WBC (test code = 0627282051) 0.0 See_Comment [Automated ASP64 ssage] The system which generated this result transmitted reference range: 0.0 - 10.0 /100 WBCs. The reference range was not used to interpret this result as normal/abnormal. NRBC x10^3 (test code = 4180457825) See_Comment [Automated DineGasma ge] The system which generated this result transmitted reference range: 10*3/?L. The reference range was not used to interpret this result as normal/abnormal. GRAN MAT (NEUT) % (test code = 770-8) 0.0 % IMM GRAN % (test code = 5980553312) 0.00 % LYMPH % (test code = 736-9) 80.0 % MONO % (test code = 5905-5) 20.0 % EOS % (test code = 713-8) 0.0 % BASO % (test code = 706-2) 0.0 % GRAN MAT x10^3(ANC) (test code = 9442586255) 1.99-6.95 L IMM GRAN x10^3 (test code = 9245730401) 0.00-0.06 LYMPH x10^3 (test code = 731-0) 0.04 10*3/uL 1.09-3.23 L MONO x10^3 (test code = 742-7) 0.36-1.02 L EOS x10^3 (test code = 711-2) 0.06-0.53 L BASO x10^3 (test code = 704-7) 0.01-0.09 Lab Interpretation (test code = 56723-4) [facility] OEQQ6172-39-51 12:02:21* Test Item Value Reference Range Interpretation Comme nts URIC ACID (test code = 7062509378) 1.7 mg/dL 3.6-8.0 L Lab Interpretation (test cod e = 64136-5) Abnormal [facility] ICGQNYDABLKUT2551-52-59 12:02:21* Test Item Value Reference Range Interpretation Comme nts LDH (test code = 6843427395) 183 U/L 120-246 Lab Interpretation (test cod e = 59700-7) [facility] METABOLIC PANEL ([id number])2022-12-19 12:02:21* Test Item Value Reference Range Interpretation Comme nts NA (test code = 4542893857) 138 mmol/L 135-145 K (test code = 4407194196) 3.9 mmol/L 3.5-5.0 CL (test code = 1125029722) 102 mmol/L 98-108 CO2 TOTAL (test code = 9147898098) 29 mmol/L 23-31 AGAP (test code = 6266346269) 7 2-16 BUN (test code = 6931745855) 13 mg/dL 7-23 GLUCOSE (test code = 9333384051) 100 mg/dL 70-110 CREATININE (test code = 3905796388) 0.51 mg/dL 0.60-1.25 L TOTAL BILI (test code = 5687343156) 2.0 mg/dL 0.1-1.1 H CALCIUM (test code = 2808553990) 8.0 mg/dL 8.6-10.6 L T PROTEIN (test code = 5070775842) 5.9 g/dL 6.3-8.2 L ALBUMIN (test code = 5659115147) 3.1 g/dL 3.5-5.0 L ALK PHOS (test code = 8422701055) 106 U/L 34-122 ALTv (test code = 1742-6) 145 U/L 5-50 H AST(SGOT) (test code = 5832174830) 131 U/L 13-40 H eGFR (test code = 9539510191) 168.7 mL/min/1.73m2 MONTSERRAT (test code = MONTSERRAT) Association of Glomerular Filtration Rate (GFR) and Staging of Kidney Disease* + --+ --+ ------+| GFR (mL/min/1.73 m2) ?| With Kidney Damage ?| ?Without Kidney Damage+ --------+ --------+ +| ?>90 ?| ?Stage one ?| ? Normal ?+ ---+ ---+ -------+| ?60-89 ?| ?Stage two ?| ? Decreased GFR ? + --+ --+ ------+| ?30-59 ?| ?Stage three ?| ? Stage three ? + --+ --+ ------+| ?15-29 ?| ?Stage four ? | ? Stage four ?+ ---+ ---+ -------+| ?<15 (or dialysis) ? ?| ?Stage five ? | ? Stage five ?+ ---+ ---+ -------+ *Each stage assumes the associated GFR level has been in effect for at least three months. ?Stages 1 to 5, with or without kidney disease, indicate chronic kidney disease. Notes: Determination of stages one and two (with eGFR >59mL/min/1.73 m2) requires estimation of kidney damage for at least three months as defined by structural or functional abnormalities of the kidney, manifested by either:Pathological abnormalities or Markers of kidney damage (including abnormalities in the composition of the blood or urine or abnormalities in imaging tests). Lab Interpretation (test code = 28466-4) [facility] 12:02:21* Test Item Value Reference Range Interpretation Comme nts PHOSPHORUS (test code = 7755965901) 3.5 mg/dL 2.5-5.0 Lab Interpretation (test cod e = 19594-0) [facility] 12:02:21* Test Item Value Reference Range Interpretation Comme nts MAGNESIUM (test code = 2077320023) 1.7 mg/dL 1.7-2.4 Lab Interpretation (test cod e = 41508-6) [facility] TB ASSAY FIPAAZTJZAEPQG1885-24-07 21:26:53* Test Item Value Reference Range Interpretation Comme nts QFT Gold Plus Result (test code = 38250-6) Negative Negative MONTSERRAT (test code = MONTSERRAT) The QuantiFERON? T B Gold Plus (in Tube) assay is intended for use as an aid in diagnosis of TB infection. A qualitative result (i.e., Negative, Positive, or Indeterminate) is based on interpretation of the four values, Nil, TB1 minus Nil, TB2 minus Nil, and Mitogen minus Nil. ?The Nil value represents nonspecific reactivity produced by the patient specimen. ?The TB1 minus Nil value indicates the interferon-gamma response of CD4+ T lymphocytes, specifically stimulated by the TB1 antigens. ?The TB2 minus Nil value indicates interferon-gamma response of both CD4+ and CD8+ T lymphocytes, stimulated by TB2 antigens. ?The Mitogen minus Nil value serves as the positive control, demonstrating the successful responsiveness of the T lymphocytes in patient specimen. A negative result suggests that M. tuberculosis infection is unlikely. ?However, in patients with high suspicion of exposure, a negative test should be repeated on a new sample. A positive result indicates an interferon-gamma response to M. tuberculosis antigens, suggesting infection with M. tuberculosis. Positive results in patients at low-risk for tuberculosis should be interpreted with caution and repeat testing on a new sample is advised. ?If repeat testing is positive, treatment may be indicated. ?Consult Infectious Disease Services for further recommendations. False positive results may occur in patients with prior infection with M. marinum, M. szulgai, or M. kansasii. For an indeterminate result, the likelihood of determining infection with M. tuberculosis cannot be determined. ?If clinically indicated, repeat testing on a new sample is advised. For further information, refer to http://www.cdc.gov/mmw r/pdf/rr/gk9248.pdf and https://doi.org/10.109 3/kush/yix306. Lab Interpretation (test code = 02636-5) [facility] Platelets (in units): 1 Units~Indication: 1) Platelets < 10,000 for bleeding prophylaxis; Special Requirements: Upyczxingoaf9318-58-86 18:47:50* Test Item Value Reference Range Interpretation Comme nts Unit Blood Type (test code = 4410) O Pos ISBT Blood Type Code (test code = 221347) 5100 Unit Number (test code = 4411) [id number] Blood Expiration Date & Time (test code = 668748) [id number] Status Information (test code = 4412) Issued Product Identification (test code = 4413) Platelets Product Code (test code = 4414) [id number] Performed at [facility] Laboratory Services [facility] Blood [address] [address]Lolh Free: [phone] No. [id number] [facility] WITH [id number] 12:07:35* Test Item Value Reference Range Interpretation Comme nts WBC (test code = 6690-2) 0.04 See_Comment LL [Automated messa ge] The system which generated this result transmitted reference range: 4.20 - 10.70 10*3/?L. The reference range was not used to interpret this result as normal/abnormal. RBC (test code = 789-8) 2.35 See_Comment L [Automated messa ge] The system which generated this result transmitted reference range: 4.26 - 5.52 10*6/?L. The reference range was not used to interpret this result as normal/abnormal. HGB (test code = 718-7) 7.6 g/dL 12.2-16.4 L HCT (test code = 4544-3) 22.6 % 38.4-49.3 L MCV (test code = 787-2) 96.2 fL 81.7-95.6 H MCH (test code = 785-6) 32.3 pg 26.1-32.7 MCHC (test code = 786-4) 33.6 g/dL 31.2-35.0 RDW-SD (test code = 77295-4) 58.2 fL 38.5-51.6 H RDW-CV (test code = 788-0) 16.6 % 12.1-15.4 H PLT (test code = 777-3) 8 See_Comment LL [Automated DineGasma ge] The system which generated this result transmitted reference range: 150 - 328 10*3/?L. The reference range was not used to interpret this result as normal/abnormal. MPV (test code = 88361-8) 9.7 fL 9.8-13.0 L IPF % (test code = 7532727080) 1.4 % 1.2-10.7 The IPF value ma y not be reliable when the patient's platelet count is less than 10 x 10*3/uL due to the higher imprecision of the IPF at low counts. Platelet count measured by fluorescence method. NRBC/100 WBC (test code = 5437986295) 0.0 See_Comment [Automated ASP64 ssage] The system which generated this result transmitted reference range: 0.0 - 10.0 /100 WBCs. The reference range was not used to interpret this result as normal/abnormal. NRBC x10^3 (test code = 3250298117) See_Comment [Automated DineGasma ge] The system which generated this result transmitted reference range: 10*3/?L. The reference range was not used to interpret this result as normal/abnormal. LYMPH % (test code = 41992-8) 100 % 14-54 H ANC (test code = 753-4) 0.00 10*3/uL 1.99-6.95 L Lab Interpretation (test code = 99810-1) [facility] 12:00:41* Test Item Value Reference Range Interpretation Comme nts MAGNESIUM (test code = 9965912743) 1.8 mg/dL 1.7-2.4 Lab Interpretation (test cod e = 52493-0) Normal [facility] METABOLIC PANEL (NA, K, CL, CO2, GLUCOSE, BUN, CREATININE, CA)2022-12-18 11:46:39* Test Item Value Reference Range Interpretation Comme nts NA (test code = 4643909561) 134 mmol/L 135-145 L K (test code = 2428971176) 3.5 mmol/L 3.5-5.0 CL (test code = 0036643349) 104 mmol/L 98-108 CO2 TOTAL (test code = 7897671999) 26 mmol/L 23-31 AGAP (test code = 8693077003) 4 2-16 BUN (test code = 4350893948) 12 mg/dL 7-23 GLUCOSE (test code = 8295988088) 102 mg/dL 70-110 CREATININE (test code = 1338908440) 0.57 mg/dL 0.60-1.25 L CALCIUM (test code = 0179881687) 8.2 mg/dL 8.6-10.6 L eGFR (test code = 5318704699) 148.4 mL/min/1.73m2 MONTSERRAT (test code = MONTSERRAT) Association of Glomerular Filtration Rate (GFR) and Staging of Kidney Disease* + --+ --+ ------+| GFR (mL/min/1.73 m2) ?| With Kidney Damage ?| ?Without Kidney Damage+ --------+ --------+ +| ?>90 ?| ?Stage one ?| ? Normal ?+ ---+ ---+ -------+| ?60-89 ?| ?Stage two ?| ? Decreased GFR ? + --+ --+ ------+| ?30-59 ?| ?Stage three ?| ? Stage three ? + --+ --+ ------+| ?15-29 ?| ?Stage four ? | ? Stage four ?+ ---+ ---+ -------+| ?<15 (or dialysis) ? ?| ?Stage five ? | ? Stage five ?+ ---+ ---+ -------+ *Each stage assumes the associated GFR level has been in effect for at least three months. ?Stages 1 to 5, with or without kidney disease, indicate chronic kidney disease. Notes: Determination of stages one and two (with eGFR >59mL/min/1.73 m2) requires estimation of kidney damage for at least three months as defined by structural or functional abnormalities of the kidney, manifested by either:Pathological abnormalities or Markers of kidney damage (including abnormalities in the composition of the blood or urine or abnormalities in imaging tests). Lab Interpretation (test code = 33506-2) [facility] Platelets (in units): 1 Units~Indication: 1) Platelets < 10,000 for bleeding xevzczvdgvz3681-84-16 15:21:50* Test Item Value Reference Range Interpretation Comme nts Unit Blood Type (test code = 4410) O Pos ISBT Blood Type Code (test code = 514564) 5100 Unit Number (test code = 4411) [id number] Blood Expiration Date & Time (test code = 590264) [id number] Status Information (test code = 4412) Issued Product Identification (test code = 4413) Platelets Product Code (test code = 4414) [id number] Performed at [facility] Laboratory Services [facility] Blood [address] [address]Dcld Free: [phone] No. [id number] [facility] WITH [id number] 11:57:54* Test Item Value Reference Range Interpretation Comme nts WBC (test code = 6690-2) 0.03 See_Comment LL [Automated DineGasma ge] The system which generated this result transmitted reference range: 4.20 - 10.70 10*3/?L. The reference range was not used to interpret this result as normal/abnormal. RBC (test code = 789-8) 2.22 See_Comment L [Automated DineGasma ge] The system which generated this result transmitted reference range: 4.26 - 5.52 10*6/?L. The reference range was not used to interpret this result as normal/abnormal. HGB (test code = 718-7) 7.3 g/dL 12.2-16.4 L HCT (test code = 4544-3) 21.3 % 38.4-49.3 L MCV (test code = 787-2) 95.9 fL 81.7-95.6 H MCH (test code = 785-6) 32.9 pg 26.1-32.7 H MCHC (test code = 786-4) 34.3 g/dL 31.2-35.0 RDW-SD (test code = 91299-5) 60.5 fL 38.5-51.6 H RDW-CV (test code = 788-0) 17.2 % 12.1-15.4 H PLT (test code = 777-3) 6 See_Comment LL [Automated DineGasma ge] The system which generated this result transmitted reference range: 150 - 328 10*3/?L. The reference range was not used to interpret this result as normal/abnormal. MPV (test code = 13037-9) Not Measured IPF % (test code = 3528306583) 0.6 % 1.2-10.7 L The IPF value ma y not be reliable when the patient's platelet count is less than 10 x 10*3/uL due to the higher imprecision of the IPF at low counts. Platelet count measured by fluorescence method. NRBC/100 WBC (test code = 2788297446) 0.0 See_Comment [Automated ASP64 ssage] The system which generated this result transmitted reference range: 0.0 - 10.0 /100 WBCs. The reference range was not used to interpret this result as normal/abnormal. NRBC x10^3 (test code = 8116488875) See_Comment [Automated DineGasma ge] The system which generated this result transmitted reference range: 10*3/?L. The reference range was not used to interpret this result as normal/abnormal. GRAN MAT (NEUT) % (test code = 770-8) 0.0 % IMM GRAN % (test code = 7945798045) 0.00 % LYMPH % (test code = 736-9) 100.0 % MONO % (test code = 5905-5) 0.0 % EOS % (test code = 713-8) 0.0 % BASO % (test code = 706-2) 0.0 % GRAN MAT x10^3(ANC) (test code = 1390063073) 1.99-6.95 L IMM GRAN x10^3 (test code = 7121139740) 0.00-0.06 LYMPH x10^3 (test code = 731-0) 0.03 10*3/uL 1.09-3.23 L MONO x10^3 (test code = 742-7) 0.36-1.02 L EOS x10^3 (test code = 711-2) 0.06-0.53 L BASO x10^3 (test code = 704-7) 0.01-0.09 Lab Interpretation (test code = 70616-1) [facility] [id number] 11:34:51* Test Item Value Reference Range Interpretation Comme nts URIC ACID (test code = 9168616562) 1.8 mg/dL 3.6-8.0 L Lab Interpretation (test cod e = 81353-6) [facility]normal [facility] IrvingLACTATE GCEKBNEHBKOVO8090-33-15 11:34:51* Test Item Value Reference Range Interpretation Comme nts LDH (test code = 7260337245) 221 U/L 120-246 Lab Interpretation (test cod e = 81096-1) [facility] Irving[facility] METABOLIC PANEL (39875)2022-12-17 11:34:51* Test Item Value Reference Range Interpretation Comme nts NA (test code = 9005991472) 138 mmol/L 135-145 K (test code = 3235733325) 3.6 mmol/L 3.5-5.0 CL (test code = 3991570888) 108 mmol/L 98-108 CO2 TOTAL (test code = 8353690062) 24 mmol/L 23-31 AGAP (test code = 9690778852) 6 2-16 BUN (test code = 4200115290) 14 mg/dL 7-23 GLUCOSE (test code = 2904359265) 108 mg/dL 70-110 CREATININE (test code = 8447273305) 0.56 mg/dL 0.60-1.25 L TOTAL BILI (test code = 4993130601) 1.6 mg/dL 0.1-1.1 H CALCIUM (test code = 9419958975) 7.3 mg/dL 8.6-10.6 L T PROTEIN (test code = 2446355661) 5.1 g/dL 6.3-8.2 L ALBUMIN (test code = 7476106706) 2.6 g/dL 3.5-5.0 L ALK PHOS (test code = 7928695153) 100 U/L 34-122 ALTv (test code = 1742-6) 132 U/L 5-50 H AST(SGOT) (test code = 2605952643) 152 U/L 13-40 H eGFR (test code = 2814185554) 151.5 mL/min/1.73m2 MONTSERRAT (test code = MONTSERRAT) Association of Glomerular Filtration Rate (GFR) and Staging of Kidney Disease* + --+ --+ ------+| GFR (mL/min/1.73 m2) ?| With Kidney Damage ?| ?Without Kidney Damage+ --------+ --------+ +| ?>90 ?| ?Stage one ?| ? Normal ?+ ---+ ---+ -------+| ?60-89 ?| ?Stage two ?| ? Decreased GFR ? + --+ --+ ------+| ?30-59 ?| ?Stage three ?| ? Stage three ? + --+ --+ ------+| ?15-29 ?| ?Stage four ? | ? Stage four ?+ ---+ ---+ -------+| ?<15 (or dialysis) ? ?| ?Stage five ? | ? Stage five ?+ ---+ ---+ -------+ *Each stage assumes the associated GFR level has been in effect for at least three months. ?Stages 1 to 5, with or without kidney disease, indicate chronic kidney disease. Notes: Determination of stages one and two (with eGFR >59mL/min/1.73 m2) requires estimation of kidney damage for at least three months as defined by structural or functional abnormalities of the kidney, manifested by either:Pathological abnormalities or Markers of kidney damage (including abnormalities in the composition of the blood or urine or abnormalities in imaging tests). Lab Interpretation (test code = 12345-4) [facility] 11:34:51* Test Item Value Reference Range Interpretation Comme nts PHOSPHORUS (test code = 1613320429) 3.1 mg/dL 2.5-5.0 Lab Interpretation (test cod e = 48745-8) Normal [facility]26 11:34:51* Test Item Value Reference Range Interpretation Comme nts MAGNESIUM (test code = 2840779225) 1.8 mg/dL 1.7-2.4 Lab Interpretation (test cod e = 28344-0) Normal [facility] C[facility] [id number] 17:01:49* Test Item Value Reference Range Interpretation Comme nts Blood Culture-Aerobic (test code = 91735-4) No organisms isolated No growth Previous preliminary verified result was Culture In Progress on 12/11/2022 at 1501 CDTPrevious preliminary verified result was No growth at 24 hours on 12/12/2022 at 1201 CDTPrevious preliminary verified result was No growth at 48 hours on 12/13/2022 at 1201 CDTPrevious preliminary verified result was No growth at 72 hours on 12/14/2022 at 1201 CDT Blood Culture-Anaerobic (test code = 99447-7) No organisms isolated No growth Previous preliminary verified result was Culture In Progress on 12/11/2022 at 1501 CDTPrevious preliminary verified result was No growth at 24 hours on 12/12/2022 at 1201 CDTPrevious preliminary verified result was No growth at 48 hours on 12/13/2022 at 1201 CDTPrevious preliminary verified result was No growth at 72 hours on 12/14/2022 at 1201 CDT Lab Interpretation (test code = 83134-2) [facility] / Hemogram - 30 minutes after transfusion of each dose of tlpphsnb7402-25-87 16:45:02* Test Item Value Reference Range Interpretation Comme nts WBC (test code = 6690-2) 0.03 See_Comment LL [Automated messa ge] The system which generated this result transmitted reference range: 4.20 - 10.70 10*3/?L. The reference range was not used to interpret this result as normal/abnormal. RBC (test code = 789-8) 2.53 See_Comment L [Automated message] The system which generated this result transmitted reference range: 4.26 - 5.52 10*6/?L. The reference range was not used to interpret this result as normal/abnormal. HGB (test code = 718-7) 8.2 g/dL 12.2-16.4 L HCT (test code = 4544-3) 24.3 % 38.4-49.3 L MCH (test code = 785-6) 32.4 pg 26.1-32.7 MCV (test code = 787-2) 96.0 fL 81.7-95.6 H MCHC (test code = 786-4) 33.7 g/dL 31.2-35.0 PLT (test code = 777-3) 12 See_Comment LL [Automated message] The system which generated this result transmitted reference range: 150 - 328 10*3/?L. The reference range was not used to interpret this result as normal/abnormal. MPV (test code = 36757-3) 11.1 fL 9.8-13.0 RDW-CV (test code = 788-0) 17.3 % 12.1-15.4 H RDW-SD (test code = 31819-2) 62.0 fL 38.5-51.6 H NRBC x10^3 (test code = 3439228549) See_Comment [Automated messa ge] The system which generated this result transmitted reference range: 10*3/?L. The reference range was not used to interpret this result as normal/abnormal. NRBC/100 WBC (test code = 7689901019) 0.0 See_Comment [Automated DineGasma ge] The system which generated this result transmitted reference range: 0.0 - 10.0 /100 WBCs. The reference range was not used to interpret this result as normal/abnormal. IPF % (test code = 2929520826) 3.1 % 1.2-10.7 Platelet count measured by fluorescence method. Lab Interpretation (test code = 52007-0) Abnormal [facility] Platelets (in units): 1 Units~Indication: 1) Platelets < 10,000 for bleeding prophylaxis; Special Requirements: Leukoreduced, Peibtsgath9332-49-95 14:35:53* Test Item Value Reference Range Interpretation Comme nts Unit Blood Type (test code = 4410) A Pos ISBT Blood Type Code (test code = 455888) 6209 Unit Number (test code = 4411) [id number] Blood Expiration Date & Time (test code = 429813) [id number] Status Information (test code = 4412) Issued Product Identification (test code = 4413) Platelets Product Code (test code = 4414) [id number] Performed at [facility] Laboratory Services - [facility] Blood [address] [place], [place] [address]Toll Free: [phone] No. [id number] [facility] CULTURE ZJTUVN9513-60-51 05:01:48* Test Item Value Reference Range Interpretation Comme nts Blood Culture-Aerobic (test code = 25332-1) No organisms isolated No growth Previous preliminary verified result was Culture In Progress on 12/11/2022 at 0301 CDTPrevious preliminary verified result was No growth at 24 hours on 12/12/2022 at 0001 CDTPrevious preliminary verified result was No growth at 48 hours on 12/13/2022 at 0001 CDTPrevious preliminary verified result was No growth at 72 hours on 12/14/2022 at 0001 CDT Blood Culture-Anaerobic (test code = 60693-7) No organisms isolated No growth Previous preliminary verified result was Culture In Progress on 12/11/2022 at 0301 CDTPrevious preliminary verified result was No growth at 24 hours on 12/12/2022 at 0001 CDTPrevious preliminary verified result was No growth at 48 hours on 12/13/2022 at 0001 CDTPrevious preliminary verified result was No growth at 72 hours on 12/14/2022 at 0001 CDT Lab Interpretation (test code = 25932-1) Normal [facility] CULTURE [id number] 05:01:48* Test Item Value Reference Range Interpretation Comme nts Blood Culture-Aerobic (test code = 62861-5) No organisms isolated No growth Previous preliminary verified result was Culture In Progress on 12/11/2022 at 0301 CDTPrevious preliminary verified result was No growth at 24 hours on 12/12/2022 at 0001 CDTPrevious preliminary verified result was No growth at 48 hours on 12/13/2022 at 0001 CDTPrevious preliminary verified result was No growth at 72 hours on 12/14/2022 at 0001 CDT Blood Culture-Anaerobic (test code = 09238-6) No organisms isolated No growth Previous preliminary verified result was Culture In Progress on 12/11/2022 at 0301 CDTPrevious preliminary verified result was No growth at 24 hours on 12/12/2022 at 0001 CDTPrevious preliminary verified result was No growth at 48 hours on 12/13/2022 at 0001 CDTPrevious preliminary verified result was No growth at 72 hours on 12/14/2022 at 0001 CDT Lab Interpretation (test code = 37971-4) [facility] Irving[facility] Platelets (in units): 1 Units~Indication: 1) Platelets < 10,000 for bleeding dhmuaaxstum9608-36-31 18:22:32* Test Item Value Reference Range Interpretation Comme nts Unit Blood Type (test code = 4410) O Pos ISBT Blood Type Code (test code = 844068) 5100 Unit Number (test code = 4411) [id number] Blood Expiration Date & Time (test code = 839064) 043406655281 Status Information (test code = 4412) Issued Product Identification (test code = 4413) Platelets Product Code (test code = 4414) [id number] Performed at [facility] Laboratory Services [facility] Blood [address] [address]Tzhm Free: [phone] No. [id number] [facility] IrvingQUANTIFERON-TB TBWVY4288-58-73 14:17:15* Test Item Value Reference Range Interpretation Comme nts Extra Tube (test code = 6561122678) Received in Lab [facility] Irving[facility] WITH [id number] 12:18:22* Test Item Value Reference Range Interpretation Comme nts WBC (test code = 6690-2) 0.12 See_Comment LL [Automated messa ge] The system which generated this result transmitted reference range: 4.20 - 10.70 10*3/?L. The reference range was not used to interpret this result as normal/abnormal. RBC (test code = 789-8) 2.45 See_Comment L [Automated messa ge] The system which generated this result transmitted reference range: 4.26 - 5.52 10*6/?L. The reference range was not used to interpret this result as normal/abnormal. HGB (test code = 718-7) 8.1 g/dL 12.2-16.4 L HCT (test code = 4544-3) 23.2 % 38.4-49.3 L MCV (test code = 787-2) 94.7 fL 81.7-95.6 MCH (test code = 785-6) 33.1 pg 26.1-32.7 H MCHC (test code = 786-4) 34.9 g/dL 31.2-35.0 RDW-SD (test code = 15547-0) 60.4 fL 38.5-51.6 H RDW-CV (test code = 788-0) 17.9 % 12.1-15.4 H PLT (test code = 777-3) 7 See_Comment LL [Automated DineGasma EyeSpot] The system which generated this result transmitted reference range: 150 - 328 10*3/?L. The reference range was not used to interpret this result as normal/abnormal. MPV (test code = 16210-3) Not Measured IPF % (test code = 9583368561) 2.9 % 1.2-10.7 The IPF value ma y not be reliable when the patient's platelet count is less than 10 x 10*3/uL due to the higher imprecision of the IPF at low counts. Platelet count measured by fluorescence method. NRBC/100 WBC (test code = 3081325957) 0.0 See_Comment [Automated ASP64 ssage] The system which generated this result transmitted reference range: 0.0 - 10.0 /100 WBCs. The reference range was not used to interpret this result as normal/abnormal. NRBC x10^3 (test code = 2591337117) See_Comment [Automated DineGasma EyeSpot] The system which generated this result transmitted reference range: 10*3/?L. The reference range was not used to interpret this result as normal/abnormal. GRAN MAT (NEUT) % (test code = 770-8) 75.0 % IMM GRAN % (test code = 1592138039) 8.30 % LYMPH % (test code = 736-9) 16.7 % MONO % (test code = 5905-5) 0.0 % EOS % (test code = 713-8) 0.0 % BASO % (test code = 706-2) 0.0 % GRAN MAT x10^3(ANC) (test code = 9942669997) 0.09 10*3/uL 1.99-6.95 L IMM GRAN x10^3 (test code = 0103052851) 0.00-0.06 LYMPH x10^3 (test code = 731-0) 1.09-3.23 L MONO x10^3 (test code = 742-7) 0.36-1.02 L EOS x10^3 (test code = 711-2) 0.06-0.53 L BASO x10^3 (test code = 704-7) 0.01-0.09 Lab Interpretation (test code = 70189-9) Abnormal [facility] METABOLIC PANEL (NA, K, CL, CO2, GLUCOSE, BUN, CREATININE, CA)2022-12-15 11:54:05* Test Item Value Reference Range Interpretation Comme nts NA (test code = 9653153860) 134 mmol/L 135-145 L K (test code = 1936996095) 3.3 mmol/L 3.5-5.0 L CL (test code = 1896547324) 107 mmol/L 98-108 CO2 TOTAL (test code = 7393081576) 24 mmol/L 23-31 AGAP (test code = 9871443657) 3 2-16 BUN (test code = 7450169993) 13 mg/dL 7-23 GLUCOSE (test code = 0369455196) 98 mg/dL 70-110 CREATININE (test code = 9161196874) 0.47 mg/dL 0.60-1.25 L CALCIUM (test code = 6819166520) 7.2 mg/dL 8.6-10.6 L eGFR (test code = 7335382395) 185.4 mL/min/1.73m2 MONTSERRAT (test code = MONTSERRAT) Association of Glomerular Filtration Rate (GFR) and Staging of Kidney Disease* + --+ --+ ------+| GFR (mL/min/1.73 m2) ?| With Kidney Damage ?| ?Without Kidney Damage+ --------+ --------+ +| ?>90 ?| ?Stage one ?| ? Normal ?+ ---+ ---+ -------+| ?60-89 ?| ?Stage two ?| ? Decreased GFR ? + --+ --+ ------+| ?30-59 ?| ?Stage three ?| ? Stage three ? + --+ --+ ------+| ?15-29 ?| ?Stage four ? | ? Stage four ?+ ---+ ---+ -------+| ?<15 (or dialysis) ? ?| ?Stage five ? | ? Stage five ?+ ---+ ---+ -------+ *Each stage assumes the associated GFR level has been in effect for at least three months. ?Stages 1 to 5, with or without kidney disease, indicate chronic kidney disease. Notes: Determination of stages one and two (with eGFR >59mL/min/1.73 m2) requires estimation of kidney damage for at least three months as defined by structural or functional abnormalities of the kidney, manifested by either:Pathological abnormalities or Markers of kidney damage (including abnormalities in the composition of the blood or urine or abnormalities in imaging tests). Lab Interpretation (test code = 72712-6) [facility] 11:54:05* Test Item Value Reference Range Interpretation Comme nts MAGNESIUM (test code = 2008952560) 1.9 mg/dL 1.7-2.4 Lab Interpretation (test cod e = 07845-2) Normal [facility] IrvingPrepare Platelets (in units): 1 Units~Indication: 1) Platelets < 10,000 for bleeding sksvhwisnya4648-06-50 20:16:47* Test Item Value Reference Range Interpretation Comme nts Unit Blood Type (test code = 4410) B Pos ISBT Blood Type Code (test code = 495672) 7300 Unit Number (test code = 4411) [id number] Blood Expiration Date & Time (test code = 006691) [id number] Status Information (test code = 4412) Issued Product Identification (test code = 4413) Platelets Product Code (test code = 4414) [id number] Performed at [facility] B Laboratory Services - [facility] Blood [address] [place] [address] 47877Ndex Free: [phone] No. [id number] [facility] IrvingHAPTOGLOBIN, [id number] 15:00:12* Test Item Value Reference Range Interpretation Comme nts HAPTOGLOB (test code = 5921412135) 100 mg/dL 16-200 Lab Interpretation (test cod e = 50285-5) Normal [facility] IrvingCBC WITH [id number] 12:11:10* Test Item Value Reference Range Interpretation Comme nts WBC (test code = 6690-2) 0.87 See_Comment LL [Automated DineGasma ge] The system which generated this result transmitted reference range: 4.20 - 10.70 10*3/?L. The reference range was not used to interpret this result as normal/abnormal. RBC (test code = 789-8) 2.75 See_Comment L [Automated messa ge] The system which generated this result transmitted reference range: 4.26 - 5.52 10*6/?L. The reference range was not used to interpret this result as normal/abnormal. HGB (test code = 718-7) 9.1 g/dL 12.2-16.4 L HCT (test code = 4544-3) 26.3 % 38.4-49.3 L MCV (test code = 787-2) 95.6 fL 81.7-95.6 MCH (test code = 785-6) 33.1 pg 26.1-32.7 H MCHC (test code = 786-4) 34.6 g/dL 31.2-35.0 RDW-SD (test code = 08184-4) 62.2 fL 38.5-51.6 H RDW-CV (test code = 788-0) 18.2 % 12.1-15.4 H PLT (test code = 777-3) 9 See_Comment LL [Automated DineGasma ge] The system which generated this result transmitted reference range: 150 - 328 10*3/?L. The reference range was not used to interpret this result as normal/abnormal. MPV (test code = 22753-9) 14.1 fL 9.8-13.0 H IPF % (test code = 1527609329) 4.1 % 1.2-10.7 The IPF value ma y not be reliable when the patient's platelet count is less than 10 x 10*3/uL due to the higher imprecision of the IPF at low counts. Platelet count measured by fluorescence method. NRBC/100 WBC (test code = 1461316287) 0.0 See_Comment [Automated ASP64 ssage] The system which generated this result transmitted reference range: 0.0 - 10.0 /100 WBCs. The reference range was not used to interpret this result as normal/abnormal. NRBC x10^3 (test code = 8247145361) See_Comment [Automated DineGasma ge] The system which generated this result transmitted reference range: 10*3/?L. The reference range was not used to interpret this result as normal/abnormal. GRAN MAT (NEUT) % (test code = 770-8) 78.3 % IMM GRAN % (test code = 2983982670) 17.20 % LYMPH % (test code = 736-9) 2.3 % MONO % (test code = 5905-5) 0.0 % EOS % (test code = 713-8) 1.1 % BASO % (test code = 706-2) 1.1 % GRAN MAT x10^3(ANC) (test code = 6085122163) 0.68 10*3/uL 1.99-6.95 L IMM GRAN x10^3 (test code = 7624968750) 0.15 10*3/uL 0.00-0.06 H LYMPH x10^3 (test code = 731-0) 1.09-3.23 L MONO x10^3 (test code = 742-7) 0.36-1.02 L EOS x10^3 (test code = 711-2) 0.06-0.53 L BASO x10^3 (test code = 704-7) 0.01-0.09 HYPERSEG NEUTS (test code = 765-8) Present See_Comment A [Automated DineGasma ge] The system which generated this result transmitted reference range: (none). The reference range was not used to interpret this result as normal/abnormal. Lab Interpretation (test code = 68708-6) Abnormal [facility] METABOLIC PANEL (NA, K, CL, CO2, GLUCOSE, BUN, CREATININE, CA)2022-12-14 11:54:50* Test Item Value Reference Range Interpretation Comme nts NA (test code = 7912855652) 135 mmol/L 135-145 K (test code = 2046973562) 3.6 mmol/L 3.5-5.0 CL (test code = 1856391184) 106 mmol/L 98-108 CO2 TOTAL (test code = 3132443983) 24 mmol/L 23-31 AGAP (test code = 4296234569) 5 2-16 BUN (test code = 1534114167) 14 mg/dL 7-23 GLUCOSE (test code = 1016084492) 91 mg/dL 70-110 CREATININE (test code = 6784112178) 0.48 mg/dL 0.60-1.25 L CALCIUM (test code = 7909263098) 7.2 mg/dL 8.6-10.6 L eGFR (test code = 9263232080) 181.0 mL/min/1.73m2 MONTSERRAT (test code = MONTSERRAT) Association of Glomerular Filtration Rate (GFR) and Staging of Kidney Disease* + --+ --+ ------+| GFR (mL/min/1.73 m2) ?| With Kidney Damage ?| ?Without Kidney Damage+ --------+ --------+ +| ?>90 ?| ?Stage one ?| ? Normal ?+ ---+ ---+ -------+| ?60-89 ?| ?Stage two ?| ? Decreased GFR ? + --+ --+ ------+| ?30-59 ?| ?Stage three ?| ? Stage three ? + --+ --+ ------+| ?15-29 ?| ?Stage four ? | ? Stage four ?+ ---+ ---+ -------+| ?<15 (or dialysis) ? ?| ?Stage five ? | ? Stage five ?+ ---+ ---+ -------+ *Each stage assumes the associated GFR level has been in effect for at least three months. ?Stages 1 to 5, with or without kidney disease, indicate chronic kidney disease. Notes: Determination of stages one and two (with eGFR >59mL/min/1.73 m2) requires estimation of kidney damage for at least three months as defined by structural or functional abnormalities of the kidney, manifested by either:Pathological abnormalities or Markers of kidney damage (including abnormalities in the composition of the blood or urine or abnormalities in imaging tests). Lab Interpretation (test code = 87038-4) [facility]normal [facility]2023-06-23 11:54:50* Test Item Value Reference Range Interpretation Comme nts MAGNESIUM (test code = 9987200500) 1.9 mg/dL 1.7-2.4 Lab Interpretation (test cod e = 94438-5) Normal [facility] IrvingLACTATE [id number] 11:54:50* Test Item Value Reference Range Interpretation Comme nts LDH (test code = 6165573539) 287 U/L 120-246 H Lab Interpretation (test cod e = 47246-2) Abnormal [facility]2023-06-23 11:54:50* Test Item Value Reference Range Interpretation Comme nts PHOSPHORUS (test code = 1171973688) 2.3 mg/dL 2.5-5.0 L Lab Interpretation (test cod e = 42813-3) Abnormal [facility] IrvingURIC [id number] 11:54:50* Test Item Value Reference Range Interpretation Comme nts URIC ACID (test code = 4733882116) 1.7 mg/dL 3.6-8.0 L Lab Interpretation (test cod e = 95542-8) Abnormal [facility] Irving[facility] WITH [id number] 11:37:10* Test Item Value Reference Range Interpretation Comme nts WBC (test code = 6690-2) 2.29 See_Comment L [Automated messa ge] The system which generated this result transmitted reference range: 4.20 - 10.70 10*3/?L. The reference range was not used to interpret this result as normal/abnormal. RBC (test code = 789-8) 2.92 See_Comment L [Automated messa ge] The system which generated this result transmitted reference range: 4.26 - 5.52 10*6/?L. The reference range was not used to interpret this result as normal/abnormal. HGB (test code = 718-7) 9.4 g/dL 12.2-16.4 L HCT (test code = 4544-3) 28.3 % 38.4-49.3 L MCV (test code = 787-2) 96.9 fL 81.7-95.6 H MCH (test code = 785-6) 32.2 pg 26.1-32.7 MCHC (test code = 786-4) 33.2 g/dL 31.2-35.0 RDW-SD (test code = 43503-7) 63.7 fL 38.5-51.6 H RDW-CV (test code = 788-0) 18.3 % 12.1-15.4 H PLT (test code = 777-3) 11 See_Comment LL [Automated messa ge] The system which generated this result transmitted reference range: 150 - 328 10*3/?L. The reference range was not used to interpret this result as normal/abnormal. MPV (test code = 99759-9) 13.0 fL 9.8-13.0 IPF % (test code = 3301368570) 3.6 % 1.2-10.7 Platelet count measured by fluorescence method. NRBC/100 WBC (test code = 6688634483) 0.0 See_Comment [Automated ASP64 ssage] The system which generated this result transmitted reference range: 0.0 - 10.0 /100 WBCs. The reference range was not used to interpret this result as normal/abnormal. NRBC x10^3 (test code = 6308965353) See_Comment [Automated DineGasma ge] The system which generated this result transmitted reference range: 10*3/?L. The reference range was not used to interpret this result as normal/abnormal. GRAN MAT (NEUT) % (test code = 770-8) 78.3 % IMM GRAN % (test code = 9244298213) 20.50 % LYMPH % (test code = 736-9) 0.4 % MONO % (test code = 5905-5) 0.0 % EOS % (test code = 713-8) 0.4 % BASO % (test code = 706-2) 0.4 % GRAN MAT x10^3(ANC) (test code = 1620584932) 1.79 10*3/uL 1.99-6.95 L IMM GRAN x10^3 (test code = 6346171203) 0.47 10*3/uL 0.00-0.06 H LYMPH x10^3 (test code = 731-0) 1.09-3.23 L MONO x10^3 (test code = 742-7) 0.36-1.02 L EOS x10^3 (test code = 711-2) 0.06-0.53 L BASO x10^3 (test code = 704-7) 0.01-0.09 Lab Interpretation (test code = 17607-6) [facility]normal [facility] [id number] 11:31:02* Test Item Value Reference Range Interpretation Comme nts URIC ACID (test code = 2263946490) 2.0 mg/dL 3.6-8.0 L Lab Interpretation (test cod e = 83684-2) Abnormal [facility] IrvingLACTATE [id number] 11:31:02* Test Item Value Reference Range Interpretation Comme nts LDH (test code = 9612164195) 328 U/L 120-246 H Lab Interpretation (test cod e = 07532-2) [facility]normal [facility]2023-06-22 11:31:02* Test Item Value Reference Range Interpretation Comme nts PHOSPHORUS (test code = 0334563210) 2.4 mg/dL 2.5-5.0 L Lab Interpretation (test cod e = 76379-7) Abnormal [facility]2023-[facility]-22 11:31:02* Test Item Value Reference Range Interpretation Comme nts MAGNESIUM (test code = 3403171076) 2.0 mg/dL 1.7-2.4 Lab Interpretation (test cod e = 83417-9) [facility] (NA, K, CL, CO2, GLUCOSE, BUN, CREATININE, CA)2022-12-13 11:31:02* Test Item Value Reference Range Interpretation Comme nts NA (test code = 0785781272) 135 mmol/L 135-145 K (test code = 2618977941) 3.6 mmol/L 3.5-5.0 CL (test code = 0439786448) 107 mmol/L 98-108 CO2 TOTAL (test code = 8743398644) 24 mmol/L 23-31 AGAP (test code = 8114278520) 4 2-16 BUN (test code = 4409159700) 14 mg/dL 7-23 GLUCOSE (test code = 4229983250) 102 mg/dL 70-110 CREATININE (test code = 2398774964) 0.51 mg/dL 0.60-1.25 L CALCIUM (test code = 6404028766) 7.2 mg/dL 8.6-10.6 L eGFR (test code = 8497742240) 168.7 mL/min/1.73m2 MONTSERRAT (test code = MONTSERRAT) Association of Glomerular Filtration Rate (GFR) and Staging of Kidney Disease* + --+ --+ ------+| GFR (mL/min/1.73 m2) ?| With Kidney Damage ?| ?Without Kidney Damage+ --------+ --------+ +| ?>90 ?| ?Stage one ?| ? Normal ?+ ---+ ---+ -------+| ?60-89 ?| ?Stage two ?| ? Decreased GFR ? + --+ --+ ------+| ?30-59 ?| ?Stage three ?| ? Stage three ? + --+ --+ ------+| ?15-29 ?| ?Stage four ? | ? Stage four ?+ ---+ ---+ -------+| ?<15 (or dialysis) ? ?| ?Stage five ? | ? Stage five ?+ ---+ ---+ -------+ *Each stage assumes the associated GFR level has been in effect for at least three months. ?Stages 1 to 5, with or without kidney disease, indicate chronic kidney disease. Notes: Determination of stages one and two (with eGFR >59mL/min/1.73 m2) requires estimation of kidney damage for at least three months as defined by structural or functional abnormalities of the kidney, manifested by either:Pathological abnormalities or Markers of kidney damage (including abnormalities in the composition of the blood or urine or abnormalities in imaging tests). Lab Interpretation (test code = 63299-2) Abnormal [facility] IrvingHEPATIC FUNCTION PANEL (77422) (ALB,T.PRO,BILI T,BU/BC,ALT,AST,ALK PHOS)2022-12-13 11:31:02* Test Item Value Reference Range Interpretation Comme nts TOTAL BILI (test code = 7941648155) 3.5 mg/dL 0.1-1.1 H BILI UNCON (test code = 5864629348) 1.7 mg/dL 0.1-1.1 H BILI CONJ (test code = 5265794796) 0.7 mg/dL 0.0-0.3 H T PROTEIN (test code = 2523901646) 5.2 g/dL 6.3-8.2 L ALBUMIN (test code = 0721552096) 2.6 g/dL 3.5-5.0 L ALK PHOS (test code = 5195904038) 83 U/L 34-122 ALTv (test code = 1742-6) 230 U/L 5-50 H AST(SGOT) (test code = 9486085419) 220 U/L 13-40 H Lab Interpretation (test cod e = 75462-8) Abnormal [facility] IrvingVancomycin Trough Level - Draw within 30 minutes prior to 3RD dose.2022-12-13 01:50:36* Test Item Value Reference Range Interpretation Comme nts VANCO TROUGH (test code = 7281078107) 6.2 ug/mL 10.0-20.0 L MONTSERRAT (test code = MONTSERRAT) Toxic Range: ?>20 ug/mL 15-20 ug/mL is recommended for severe infection or when Vancomycin ASHER is greater than or equal to 2. Lab Interpretation (test code = 69029-2) Abnormal [facility] [id number] 16:51:27* Test Item Value Reference Range Interpretation Comme nts CRP (test code = 8305753619) 10.1 mg/dL <=0.8 H Lab Interpretation (test cod e = 61262-1) Abnormal [facility] IrvingSEDIMENTATION [id number] 12:21:21* Test Item Value Reference Range Interpretation Comme nts ESR (test code = 85108-8) 15 See_Comment [Automated message] The system which generated this result transmitted reference range: 2 - 30 mm/HR. The reference range was not used to interpret this result as normal/abnormal. Lab Interpretation (test code = 84765-8) Normal [facility] WITH [id number] 12:14:37* Test Item Value Reference Range Interpretation Comme nts WBC (test code = 6690-2) 1.86 See_Comment LL [Automated DineGasma ge] The system which generated this result transmitted reference range: 4.20 - 10.70 10*3/?L. The reference range was not used to interpret this result as normal/abnormal. RBC (test code = 789-8) 2.94 See_Comment L [Automated messa ge] The system which generated this result transmitted reference range: 4.26 - 5.52 10*6/?L. The reference range was not used to interpret this result as normal/abnormal. HGB (test code = 718-7) 9.5 g/dL 12.2-16.4 L HCT (test code = 4544-3) 28.3 % 38.4-49.3 L MCV (test code = 787-2) 96.3 fL 81.7-95.6 H MCH (test code = 785-6) 32.3 pg 26.1-32.7 MCHC (test code = 786-4) 33.6 g/dL 31.2-35.0 RDW-SD (test code = 82600-2) 63.6 fL 38.5-51.6 H RDW-CV (test code = 788-0) 18.2 % 12.1-15.4 H PLT (test code = 777-3) 14 See_Comment LL [Automated DineGasma ge] The system which generated this result transmitted reference range: 150 - 328 10*3/?L. The reference range was not used to interpret this result as normal/abnormal. MPV (test code = 52124-7) 11.9 fL 9.8-13.0 IPF % (test code = 2890862309) 4.4 % 1.2-10.7 Platelet count measured by fluorescence method. NRBC/100 WBC (test code = 3080496555) 0.0 See_Comment [Automated ASP64 ssage] The system which generated this result transmitted reference range: 0.0 - 10.0 /100 WBCs. The reference range was not used to interpret this result as normal/abnormal. NRBC x10^3 (test code = 7051121140) See_Comment [Automated DineGasma ge] The system which generated this result transmitted reference range: 10*3/?L. The reference range was not used to interpret this result as normal/abnormal. GRAN MAT (NEUT) % (test code = 770-8) 93.0 % IMM GRAN % (test code = 9784586580) 5.40 % LYMPH % (test code = 736-9) 1.1 % MONO % (test code = 5905-5) 0.0 % EOS % (test code = 713-8) 0.5 % BASO % (test code = 706-2) 0.0 % GRAN MAT x10^3(ANC) (test code = 8006692709) 1.73 10*3/uL 1.99-6.95 L IMM GRAN x10^3 (test code = 4691159707) 0.10 10*3/uL 0.00-0.06 H LYMPH x10^3 (test code = 731-0) 1.09-3.23 L MONO x10^3 (test code = 742-7) 0.36-1.02 L EOS x10^3 (test code = 711-2) 0.06-0.53 L BASO x10^3 (test code = 704-7) 0.01-0.09 Lab Interpretation (test code = 61046-1) [facility]normal [facility] Irving[facility] [id number] 12:08:05* Test Item Value Reference Range Interpretation Comme nts URIC ACID (test code = 4958517557) 2.5 mg/dL 3.6-8.0 L Lab Interpretation (test cod e = 75684-5) Abnormal [facility] IrvingLACTATE [id number] 12:08:05* Test Item Value Reference Range Interpretation Comme nts LDH (test code = 3486618985) 359 U/L 120-246 H Lab Interpretation (test cod e = 31867-9) Abnormal [facility] IrvingCOMP. METABOLIC PANEL (35918)2022-12-12 12:08:04* Test Item Value Reference Range Interpretation Comme nts NA (test code = 0613165657) 137 mmol/L 135-145 K (test code = 5604918042) 3.7 mmol/L 3.5-5.0 CL (test code = 8943494325) 107 mmol/L 98-108 CO2 TOTAL (test code = 6941509275) 27 mmol/L 23-31 AGAP (test code = 3192142504) 3 2-16 BUN (test code = 0345882564) 14 mg/dL 7-23 GLUCOSE (test code = 1970177820) 107 mg/dL 70-110 CREATININE (test code = 4637005324) 0.56 mg/dL 0.60-1.25 L TOTAL BILI (test code = 5153455436) 4.6 mg/dL 0.1-1.1 H CALCIUM (test code = 1435710957) 7.2 mg/dL 8.6-10.6 L T PROTEIN (test code = 0268509089) 5.0 g/dL 6.3-8.2 L ALBUMIN (test code = 4335274871) 2.5 g/dL 3.5-5.0 L ALK PHOS (test code = 6591346147) 82 U/L 34-122 ALTv (test code = 1742-6) 260 U/L 5-50 H AST(SGOT) (test code = 0811129647) 283 U/L 13-40 H eGFR (test code = 1703303072) 151.5 mL/min/1.73m2 MONTSERRAT (test code = MONTSERRAT) Association of Glomerular Filtration Rate (GFR) and Staging of Kidney Disease* + --+ --+ ------+| GFR (mL/min/1.73 m2) ?| With Kidney Damage ?| ?Without Kidney Damage+ --------+ --------+ +| ?>90 ?| ?Stage one ?| ? Normal ?+ ---+ ---+ -------+| ?60-89 ?| ?Stage two ?| ? Decreased GFR ? + --+ --+ ------+| ?30-59 ?| ?Stage three ?| ? Stage three ? + --+ --+ ------+| ?15-29 ?| ?Stage four ? | ? Stage four ?+ ---+ ---+ -------+| ?<15 (or dialysis) ? ?| ?Stage five ? | ? Stage five ?+ ---+ ---+ -------+ *Each stage assumes the associated GFR level has been in effect for at least three months. ?Stages 1 to 5, with or without kidney disease, indicate chronic kidney disease. Notes: Determination of stages one and two (with eGFR >59mL/min/1.73 m2) requires estimation of kidney damage for at least three months as defined by structural or functional abnormalities of the kidney, manifested by either:Pathological abnormalities or Markers of kidney damage (including abnormalities in the composition of the blood or urine or abnormalities in imaging tests). Lab Interpretation (test code = 08378-5) [facility]normal [facility]2023-06-21 12:08:04* Test Item Value Reference Range Interpretation Comme nts PHOSPHORUS (test code = 1679924271) 2.2 mg/dL 2.5-5.0 L Lab Interpretation (test cod e = 96634-5) Abnormal [facility]2023-06-21 12:08:04* Test Item Value Reference Range Interpretation Comme nts MAGNESIUM (test code = 8494465271) 2.0 mg/dL 1.7-2.4 Lab Interpretation (test cod e = 05163-9) Normal [facility] IrvingHEPATIC FUNCTION PANEL (29877) (ALB,T.PRO,BILI T,BU/BC,ALT,AST,ALK PHOS)2022-12-12 12:08:04* Test Item Value Reference Range Interpretation Comme nts TOTAL BILI (test code = 7512540709) 4.6 mg/dL 0.1-1.1 H BILI UNCON (test code = 0759622505) 2.3 mg/dL 0.1-1.1 H BILI CONJ (test code = 5439800811) 1.2 mg/dL 0.0-0.3 H T PROTEIN (test code = 3751551987) 5.0 g/dL 6.3-8.2 L ALBUMIN (test code = 0937169709) 2.5 g/dL 3.5-5.0 L ALK PHOS (test code = 8146987618) 82 U/L 34-122 ALTv (test code = 1742-6) 260 U/L 5-50 H AST(SGOT) (test code = 1702373470) 283 U/L 13-40 H Lab Interpretation (test cod e = 80085-6) Abnormal [facility] IrvingMETHOTREXATE2023-06-20 17:32:06 METHOTREX<0.050umol/L12/11/2022 12:32 PM [facility]TSH[facility] LABORATORY SERVICESTHERAPEUTIC RANGE = VARIABLE(DEPENDS ON TREATMENT PROTOCOL)TOXIC RANGE = GREATER THAN 10.00 UMOL/L @ 24 HRS ?GREATER THAN ?1.00 UMOL/L @ 48 HRS ?GREATER THAN ?0.10 UMOL/L @ 72 HRS Test developed and characteristics determined by [facility] IrvingCBC WITH [id number] 11:29:33* Test Item Value Reference Range Interpretation Comme nts WBC (test code = 6690-2) 3.20 See_Comment L [Automated messa ge] The system which generated this result transmitted reference range: 4.20 - 10.70 10*3/?L. The reference range was not used to interpret this result as normal/abnormal. RBC (test code = 789-8) 3.22 See_Comment L [Automated DineGasma ge] The system which generated this result transmitted reference range: 4.26 - 5.52 10*6/?L. The reference range was not used to interpret this result as normal/abnormal. HGB (test code = 718-7) 10.4 g/dL 12.2-16.4 L HCT (test code = 4544-3) 30.1 % 38.4-49.3 L MCV (test code = 787-2) 93.5 fL 81.7-95.6 MCH (test code = 785-6) 32.3 pg 26.1-32.7 MCHC (test code = 786-4) 34.6 g/dL 31.2-35.0 RDW-SD (test code = 15369-9) 58.8 fL 38.5-51.6 H RDW-CV (test code = 788-0) 17.5 % 12.1-15.4 H PLT (test code = 777-3) 27 See_Comment LL [Automated DineGasma ge] The system which generated this result transmitted reference range: 150 - 328 10*3/?L. The reference range was not used to interpret this result as normal/abnormal. MPV (test code = 10413-0) 11.4 fL 9.8-13.0 IPF % (test code = 2675522843) 3.8 % 1.2-10.7 Platelet count measured by fluorescence method. NRBC/100 WBC (test code = 1843301291) 0.0 See_Comment [Automated ASP64 ssage] The system which generated this result transmitted reference range: 0.0 - 10.0 /100 WBCs. The reference range was not used to interpret this result as normal/abnormal. NRBC x10^3 (test code = [id number]) See_Comment [Automated [employer] ge] The system which generated this result transmitted reference range: 10*3/?L. The reference range was not used to interpret this result as normal/abnormal. GRAN MAT (NEUT) % (test code = 770-8) 98.2 % IMM GRAN % (test code = 5656573678) 0.30 % LYMPH % (test code = 736-9) 0.9 % MONO % (test code = 5905-5) 0.3 % EOS % (test code = 713-8) 0.3 % BASO % (test code = 706-2) 0.0 % GRAN MAT x10^3(ANC) (test code = 3961437639) 3.14 10*3/uL 1.99-6.95 IMM GRAN x10^3 (test code = [id number]) 0.00-0.06 LYMPH x10^3 (test code = 731-0) 0.03 10*3/uL 1.09-3.23 L MONO x10^3 (test code = 742-7) 0.36-1.02 L EOS x10^3 (test code = 711-2) 0.06-0.53 L BASO x10^3 (test code = 704-7) 0.01-0.09 BANDS (test code = 9216671064) Increased A Lab Interpretation (test code = 61268-5) [facility] [id number] 10:46:31* Test Item Value Reference Range Interpretation Comme nts LDH (test code = 1920627922) 497 U/L 120-246 H Lab Interpretation (test cod e = 48288-0) [facility] [id number] 10:46:31* Test Item Value Reference Range Interpretation Comme nts URIC ACID (test code = 2828444494) 3.1 mg/dL 3.6-8.0 L Lab Interpretation (test cod e = 42371-3) [facility]23-[facility]-20 10:46:30* Test Item Value Reference Range Interpretation Comme nts PHOSPHORUS (test code = 7203197780) 2.4 mg/dL 2.5-5.0 L Lab Interpretation (test cod e = 20332-9) [facility]OL[facility] PAN[facility] (NA, K, CL, CO2, GLUCOSE, BUN, CREATININE, CA)2022-12-11 10:46:30* Test Item Value Reference Range Interpretation Comme nts NA (test code = 8798728791) 134 mmol/L 135-145 L K (test code = 8772711607) 3.3 mmol/L 3.5-5.0 L CL (test code = 5960995034) 99 mmol/L 98-108 CO2 TOTAL (test code = 5488678752) 32 mmol/L 23-31 H AGAP (test code = 0171645643) 3 2-16 BUN (test code = 7268326113) 15 mg/dL 7-23 GLUCOSE (test code = 8880351757) 103 mg/dL 70-110 CREATININE (test code = 1484505060) 0.62 mg/dL 0.60-1.25 CALCIUM (test code = 5410168839) 7.3 mg/dL 8.6-10.6 L eGFR (test code = 7229791310) 134.7 mL/min/1.73m2 MONTSERRAT (test code = MONTSERRAT) Association of Glomerular Filtration Rate (GFR) and Staging of Kidney Disease* + --+ --+ ------+| GFR (mL/min/1.73 m2) ?| With Kidney Damage ?| ?Without Kidney Damage+ --------+ --------+ +| ?>90 ?| ?Stage one ?| ? Normal ?+ ---+ ---+ -------+| ?60-89 ?| ?Stage two ?| ? Decreased GFR ? + --+ --+ ------+| ?30-59 ?| ?Stage three ?| ? Stage three ? + --+ --+ ------+| ?15-29 ?| ?Stage four ? | ? Stage four ?+ ---+ ---+ -------+| ?<15 (or dialysis) ? ?| ?Stage five ? | ? Stage five ?+ ---+ ---+ -------+ *Each stage assumes the associated GFR level has been in effect for at least three months. ?Stages 1 to 5, with or without kidney disease, indicate chronic kidney disease. Notes: Determination of stages one and two (with eGFR >59mL/min/1.73 m2) requires estimation of kidney damage for at least three months as defined by structural or functional abnormalities of the kidney, manifested by either:Pathological abnormalities or Markers of kidney damage (including abnormalities in the composition of the blood or urine or abnormalities in imaging tests). Lab Interpretation (test code = 13538-8) [facility]-20 10:46:30* Test Item Value Reference Range Interpretation Comme nts MAGNESIUM (test code = 5905206763) 1.8 mg/dL 1.7-2.4 Lab Interpretation (test cod e = 27055-7) Normal [facility]METHOTREXATE2023-06-19 23:28:42* Test Item Value Reference Range Interpretation Comme nts METHOTREX (test code = 8138056370) 0.050 umol/L MONTSERRAT (test code = MONTSERRAT) THERAPEUTIC RANGE = VARIABLE (DEPENDS ON TREATMENT PROTOCOL)TOXIC RANGE = GREATER THAN 10.00 UMOL/L @ 24 HRS ?GREATER THAN ?1.00 UMOL/L @ 48 HRS ?GREATER THAN ?0.10 UMOL/L @ 72 HRS Test developed and characteristics determined by [facility]. [facility] IrvingCB WITH [id number] 11:45:34* Test Item Value Reference Range Interpretation Comme nts WBC (test code = 6690-2) 2.54 See_Comment L [Automated messa ge] The system which generated this result transmitted reference range: 4.20 - 10.70 10*3/?L. The reference range was not used to interpret this result as normal/abnormal. RBC (test code = 789-8) 3.52 See_Comment L [Automated messa ge] The system which generated this result transmitted reference range: 4.26 - 5.52 10*6/?L. The reference range was not used to interpret this result as normal/abnormal. HGB (test code = 718-7) 11.4 g/dL 12.2-16.4 L HCT (test code = 4544-3) 33.3 % 38.4-49.3 L MCV (test code = 787-2) 94.6 fL 81.7-95.6 MCH (test code = 785-6) 32.4 pg 26.1-32.7 MCHC (test code = 786-4) 34.2 g/dL 31.2-35.0 RDW-SD (test code = 48652-8) 57.8 fL 38.5-51.6 H RDW-CV (test code = 788-0) 17.4 % 12.1-15.4 H PLT (test code = 777-3) 37 See_Comment LL [Automated DineGasma ge] The system which generated this result transmitted reference range: 150 - 328 10*3/?L. The reference range was not used to interpret this result as normal/abnormal. MPV (test code = 16632-7) 11.5 fL 9.8-13.0 IPF % (test code = 3627962600) 5.3 % 1.2-10.7 Platelet count measured by fluorescence method. NRBC/100 WBC (test code = 6863146280) 0.0 See_Comment [Automated ASP64 ssage] The system which generated this result transmitted reference range: 0.0 - 10.0 /100 WBCs. The reference range was not used to interpret this result as normal/abnormal. NRBC x10^3 (test code = 7220229784) See_Comment [Automated DineGasma ge] The system which generated this result transmitted reference range: 10*3/?L. The reference range was not used to interpret this result as normal/abnormal. GRAN MAT (NEUT) % (test code = 770-8) 91.7 % IMM GRAN % (test code = 2067952914) 0.80 % LYMPH % (test code = 736-9) 2.4 % MONO % (test code = 5905-5) 5.1 % EOS % (test code = 713-8) 0.0 % BASO % (test code = 706-2) 0.0 % GRAN MAT x10^3(ANC) (test code = 2090569725) 2.33 10*3/uL 1.99-6.95 IMM GRAN x10^3 (test code = 7461440965) 0.00-0.06 LYMPH x10^3 (test code = 731-0) 0.06 10*3/uL 1.09-3.23 L MONO x10^3 (test code = 742-7) 0.13 10*3/uL 0.36-1.02 L EOS x10^3 (test code = 711-2) 0.06-0.53 L BASO x10^3 (test code = 704-7) 0.01-0.09 Lab Interpretation (test code = 77336-1) [facility] [id number] 11:20:08* Test Item Value Reference Range Interpretation Comme nts LDH (test code = 5083967025) 384 U/L 120-246 H Lab Interpretation (test cod e = 93326-3) [facility]normal [facility]2023-[facility]-19 11:20:08* Test Item Value Reference Range Interpretation Comme nts PHOSPHORUS (test code = 5404071865) 2.9 mg/dL 2.5-5.0 Lab Interpretation (test cod e = 23801-0) Normal [facility] [id number] 11:20:08* Test Item Value Reference Range Interpretation Comme nts URIC ACID (test code = 6818855308) 4.0 mg/dL 3.6-8.0 Lab Interpretation (test cod e = 72198-8) [facility]OL[facility] PAN[facility] (NA, K, CL, CO2, GLUCOSE, BUN, CREATININE, CA)2022-12-10 11:20:08* Test Item Value Reference Range Interpretation Comme nts NA (test code = 1537164956) 135 mmol/L 135-145 K (test code = 1685307817) 3.5 mmol/L 3.5-5.0 CL (test code = 1541512552) 104 mmol/L 98-108 CO2 TOTAL (test code = 7971627405) 27 mmol/L 23-31 AGAP (test code = 5872243164) 4 2-16 BUN (test code = 9114224963) 13 mg/dL 7-23 GLUCOSE (test code = 7946455865) 119 mg/dL 70-110 H CREATININE (test code = 7679052972) 0.44 mg/dL 0.60-1.25 L CALCIUM (test code = 6047808783) 6.5 mg/dL 8.6-10.6 L eGFR (test code = 5126271158) 200.1 mL/min/1.73m2 MONTSERRAT (test code = MONTSERRAT) Association of Glomerular Filtration Rate (GFR) and Staging of Kidney Disease* + --+ --+ ------+| GFR (mL/min/1.73 m2) ?| With Kidney Damage ?| ?Without Kidney Damage+ --------+ --------+ +| ?>90 ?| ?Stage one ?| ? Normal ?+ ---+ ---+ -------+| ?60-89 ?| ?Stage two ?| ? Decreased GFR ? + --+ --+ ------+| ?30-59 ?| ?Stage three ?| ? Stage three ? + --+ --+ ------+| ?15-29 ?| ?Stage four ? | ? Stage four ?+ ---+ ---+ -------+| ?<15 (or dialysis) ? ?| ?Stage five ? | ? Stage five ?+ ---+ ---+ -------+ *Each stage assumes the associated GFR level has been in effect for at least three months. ?Stages 1 to 5, with or without kidney disease, indicate chronic kidney disease. Notes: Determination of stages one and two (with eGFR >59mL/min/1.73 m2) requires estimation of kidney damage for at least three months as defined by structural or functional abnormalities of the kidney, manifested by either:Pathological abnormalities or Markers of kidney damage (including abnormalities in the composition of the blood or urine or abnormalities in imaging tests). Lab Interpretation (test code = 00364-0) [facility]-19 11:20:08* Test Item Value Reference Range Interpretation Comme nts MAGNESIUM (test code = 5108777144) 1.8 mg/dL 1.7-2.4 Lab Interpretation (test cod e = 54461-2) Normal [facility] [id number] 11:09:04* Test Item Value Reference Range Interpretation Comme nts LDH (test code = 6600311956) 403 U/L 120-246 H Lab Interpretation (test cod e = 05898-9) [facility]normal [facility]23-[facility]-18 11:09:04* Test Item Value Reference Range Interpretation Comme nts PHOSPHORUS (test code = 4025305271) 3.4 mg/dL 2.5-5.0 Lab Interpretation (test cod e = 70559-4) Normal [facility] [id number] 11:09:04* Test Item Value Reference Range Interpretation Comme nts URIC ACID (test code = 5391691270) 3.5 mg/dL 3.6-8.0 L Lab Interpretation (test cod e = 83351-9) [facility] (NA, K, CL, CO2, GLUCOSE, BUN, CREATININE, CA)2022-12-09 11:09:04* Test Item Value Reference Range Interpretation Comme nts NA (test code = 9404387460) 138 mmol/L 135-145 K (test code = 2475127264) 4.0 mmol/L 3.5-5.0 CL (test code = 5323418520) 105 mmol/L 98-108 CO2 TOTAL (test code = 8199512492) 29 mmol/L 23-31 AGAP (test code = 5038496658) 4 2-16 BUN (test code = 8540595470) 13 mg/dL 7-23 GLUCOSE (test code = 4660736994) 109 mg/dL 70-110 CREATININE (test code = 7411714895) 0.52 mg/dL 0.60-1.25 L CALCIUM (test code = 6036521389) 7.3 mg/dL 8.6-10.6 L eGFR (test code = 2112550824) 165.0 mL/min/1.73m2 MONTSERRAT (test code = MONTSERRAT) Association of Glomerular Filtration Rate (GFR) and Staging of Kidney Disease* + --+ --+ ------+| GFR (mL/min/1.73 m2) ?| With Kidney Damage ?| ?Without Kidney Damage+ --------+ --------+ +| ?>90 ?| ?Stage one ?| ? Normal ?+ ---+ ---+ -------+| ?60-89 ?| ?Stage two ?| ? Decreased GFR ? + --+ --+ ------+| ?30-59 ?| ?Stage three ?| ? Stage three ? + --+ --+ ------+| ?15-29 ?| ?Stage four ? | ? Stage four ?+ ---+ ---+ -------+| ?<15 (or dialysis) ? ?| ?Stage five ? | ? Stage five ?+ ---+ ---+ -------+ *Each stage assumes the associated GFR level has been in effect for at least three months. ?Stages 1 to 5, with or without kidney disease, indicate chronic kidney disease. Notes: Determination of stages one and two (with eGFR >59mL/min/1.73 m2) requires estimation of kidney damage for at least three months as defined by structural or functional abnormalities of the kidney, manifested by either:Pathological abnormalities or Markers of kidney damage (including abnormalities in the composition of the blood or urine or abnormalities in imaging tests). Lab Interpretation (test code = 61455-9) [facility]-18 11:09:04* Test Item Value Reference Range Interpretation Comme nts MAGNESIUM (test code = 1392337217) 2.1 mg/dL 1.7-2.4 Lab Interpretation (test cod e = 82061-2) Normal [facility] IrvingHEPAT[facility] FUNCTION PANEL (37484) (ALB,T.PRO,BILI T,BU/BC,ALT,AST,ALK PHOS)2022-12-09 11:09:04* Test Item Value Reference Range Interpretation Comme nts TOTAL BILI (test code = 5682709986) 1.8 mg/dL 0.1-1.1 H BILI UNCON (test code = 8169677064) 1.5 mg/dL 0.1-1.1 H BILI CONJ (test code = 1395695860) 0.0 mg/dL 0.0-0.3 T PROTEIN (test code = 3176003958) 5.4 g/dL 6.3-8.2 L ALBUMIN (test code = 3007004606) 2.9 g/dL 3.5-5.0 L ALK PHOS (test code = 3062933647) 128 U/L 34-122 H ALTv (test code = 1742-6) 229 U/L 5-50 H AST(SGOT) (test code = 9892386806) 198 U/L 13-40 H Lab Interpretation (test cod e = 95850-8) [facility]normal [facility]CBC WITH [id number] 10:58:26* Test Item Value Reference Range Interpretation Comme nts WBC (test code = 6690-2) 3.41 See_Comment L [Automated messa ge] The system which generated this result transmitted reference range: 4.20 - 10.70 10*3/?L. The reference range was not used to interpret this result as normal/abnormal. RBC (test code = 789-8) 3.77 See_Comment L [Automated messa ge] The system which generated this result transmitted reference range: 4.26 - 5.52 10*6/?L. The reference range was not used to interpret this result as normal/abnormal. HGB (test code = 718-7) 11.9 g/dL 12.2-16.4 L HCT (test code = 4544-3) 35.9 % 38.4-49.3 L MCV (test code = 787-2) 95.2 fL 81.7-95.6 MCH (test code = 785-6) 31.6 pg 26.1-32.7 MCHC (test code = 786-4) 33.1 g/dL 31.2-35.0 RDW-SD (test code = 48951-7) 58.4 fL 38.5-51.6 H RDW-CV (test code = 788-0) 17.6 % 12.1-15.4 H PLT (test code = 777-3) 49 See_Comment LL [Automated DineGasma ge] The system which generated this result transmitted reference range: 150 - 328 10*3/?L. The reference range was not used to interpret this result as normal/abnormal. MPV (test code = 07259-1) 11.3 fL 9.8-13.0 IPF % (test code = 5918907009) 3.0 % 1.2-10.7 Platelet count measured by fluorescence method. NRBC/100 WBC (test code = 6311676546) 0.0 See_Comment [Automated ASP64 ssage] The system which generated this result transmitted reference range: 0.0 - 10.0 /100 WBCs. The reference range was not used to interpret this result as normal/abnormal. NRBC x10^3 (test code = 1172795644) See_Comment [Automated DineGasma ge] The system which generated this result transmitted reference range: 10*3/?L. The reference range was not used to interpret this result as normal/abnormal. GRAN MAT (NEUT) % (test code = 770-8) 85.0 % IMM GRAN % (test code = 5987334060) 1.20 % LYMPH % (test code = 736-9) 2.9 % MONO % (test code = 5905-5) 10.6 % EOS % (test code = 713-8) 0.3 % BASO % (test code = 706-2) 0.0 % GRAN MAT x10^3(ANC) (test code = 7773833988) 2.90 10*3/uL 1.99-6.95 IMM GRAN x10^3 (test code = 9065602998) 0.04 10*3/uL 0.00-0.06 LYMPH x10^3 (test code = 731-0) 0.10 10*3/uL 1.09-3.23 L MONO x10^3 (test code = 742-7) 0.36 10*3/uL 0.36-1.02 EOS x10^3 (test code = 711-2) 0.06-0.53 L BASO x10^3 (test code = 704-7) 0.01-0.09 Lab Interpretation (test code = 63322-4) [facility] 10:53:08* Test Item Value Reference Range Interpretation Comme nts APPEARANCE (test code = 8795637463) Clear Clear COLOR (test code = 7267074348) Yellow Yellow PH (test code = 7156043634) 9.0 4.8-8.0 A SP GRAVITY (test code = 8578021691) 1.011 1.003-1.030 GLU U QUAL (test code = 8110648987) Normal Normal BLOOD (test code = 7952098179) Negative Negative KETONES (test code = 2703050285) Negative Negative PROTEIN (test code = 2887-8) Negative Negative UROBILIN (test code = 1763654863) Normal Normal BILIRUBIN (test code = 2217879978) Negative Negative NITRITE (test code = 5028055659) Negative Negative LEUK STEVEN (test code = 8309960552) Negative Negative RBC/HPF (test code = 1488324315) 3 See_Comment [Automated DineGasma ge] The system which generated this result transmitted reference range: 0 - 3 HPF. The reference range was not used to interpret this result as normal/abnormal. WBC/HPF (test code = 1141077959) 1 See_Comment [Automated DineGasma ge] The system which generated this result transmitted reference range: 0 - 5 HPF. The reference range was not used to interpret this result as normal/abnormal. BACTERIA (test code = 3315117887) Moderate Negative A MUCOUS (test code = 7039262115) Slight Negative LPF A AMORPHOUS (test code = 0886955611) Rare Rare HPF Lab Interpretation (test code = 44118-4) [facility]normal [facility] IrvingProthrombin Time / [id number] 10:46:40* Test Item Value Reference Range Interpretation Comme nts PROTIME PATIENT (test code = 5964-2) 12.9 See_Comment H [Automated messa ge] The system which generated this result transmitted reference range: 10.1 - 12.6 Seconds. The reference range was not used to interpret this result as normal/abnormal. INR (test code = 6301-6) 1.1 Normal INR <1.1; Warfarin Therapeutic range 2.0 to 3.0 or 2.5 to 3.5, depending upon the indications. Lab Interpretation (test code = 10747-1) [facility]normal [facility] IrvingCBC WITH [id number] 09:59:50* Test Item Value Reference Range Interpretation Comme nts WBC (test code = 6690-2) 2.27 See_Comment L [Automated messa ge] The system which generated this result transmitted reference range: 4.20 - 10.70 10*3/?L. The reference range was not used to interpret this result as normal/abnormal. RBC (test code = 789-8) 3.57 See_Comment L [Automated messa ge] The system which generated this result transmitted reference range: 4.26 - 5.52 10*6/?L. The reference range was not used to interpret this result as normal/abnormal. HGB (test code = 718-7) 11.7 g/dL 12.2-16.4 L HCT (test code = 4544-3) 33.1 % 38.4-49.3 L MCV (test code = 787-2) 92.7 fL 81.7-95.6 MCH (test code = 785-6) 32.8 pg 26.1-32.7 H MCHC (test code = 786-4) 35.3 g/dL 31.2-35.0 H RDW-SD (test code = 78186-7) 54.4 fL 38.5-51.6 H RDW-CV (test code = 788-0) 17.6 % 12.1-15.4 H PLT (test code = 777-3) 56 See_Comment L [Automated DineGasma ge] The system which generated this result transmitted reference range: 150 - 328 10*3/?L. The reference range was not used to interpret this result as normal/abnormal. MPV (test code = 16263-0) 10.8 fL 9.8-13.0 IPF % (test code = 8140292944) 4.9 % 1.2-10.7 Platelet count measured by fluorescence method. NRBC/100 WBC (test code = 0520692273) 0.0 See_Comment [Automated ASP64 ssage] The system which generated this result transmitted reference range: 0.0 - 10.0 /100 WBCs. The reference range was not used to interpret this result as normal/abnormal. NRBC x10^3 (test code = 9608600269) See_Comment [Automated DineGasma ge] The system which generated this result transmitted reference range: 10*3/?L. The reference range was not used to interpret this result as normal/abnormal. GRAN MAT (NEUT) % (test code = 770-8) 80.6 % IMM GRAN % (test code = 2908900224) 1.30 % LYMPH % (test code = 736-9) 6.6 % MONO % (test code = 5905-5) 10.6 % EOS % (test code = 713-8) 0.9 % BASO % (test code = 706-2) 0.0 % GRAN MAT x10^3(ANC) (test code = 2073084485) 1.83 10*3/uL 1.99-6.95 L IMM GRAN x10^3 (test code = 1327548531) 0.03 10*3/uL 0.00-0.06 LYMPH x10^3 (test code = 731-0) 0.15 10*3/uL 1.09-3.23 L MONO x10^3 (test code = 742-7) 0.24 10*3/uL 0.36-1.02 L EOS x10^3 (test code = 711-2) 0.06-0.53 L BASO x10^3 (test code = 704-7) 0.01-0.09 Lab Interpretation (test code = 64224-9) [facility] [id number] 09:50:23* Test Item Value Reference Range Interpretation Comme [facility] URIC ACID (test code = 0178410461) 3.5 mg/dL 3.6-8.0 L Lab Interpretation (test cod e = 93604-0) [facility]normal [facility] IrvingLACT[facility] [id number] 09:50:23* Test Item Value Reference Range Interpretation Comme nts LDH (test code = 9460700864) 338 U/L 120-246 H Lab Interpretation (test cod e = 47756-1) [facility]normal [facility] IrvingCOMP. METABOLIC PANEL (93838)2022-12-08 09:50:23* Test Item Value Reference Range Interpretation Comme nts NA (test code = 3986073165) 136 mmol/L 135-145 K (test code = 2608553431) 3.4 mmol/L 3.5-5.0 L CL (test code = 0532329901) 102 mmol/L 98-108 CO2 TOTAL (test code = 3959429139) 31 mmol/L 23-31 AGAP (test code = 6976461117) 3 2-16 BUN (test code = 1924669867) 18 mg/dL 7-23 GLUCOSE (test code = 7502858532) 112 mg/dL 70-110 H CREATININE (test code = 1491138957) 0.62 mg/dL 0.60-1.25 TOTAL BILI (test code = 3549590588) 1.6 mg/dL 0.1-1.1 H CALCIUM (test code = 7410099997) 7.3 mg/dL 8.6-10.6 L T PROTEIN (test code = 9664810112) 5.3 g/dL 6.3-8.2 L ALBUMIN (test code = 0220279227) 2.8 g/dL 3.5-5.0 L ALK PHOS (test code = 6309126606) 152 U/L 34-122 H ALTv (test code = 1742-6) 185 U/L 5-50 H AST(SGOT) (test code = 3463948872) 152 U/L 13-40 H eGFR (test code = 6919669018) 134.7 mL/min/1.73m2 MONTSERRAT (test code = MONTSERRAT) Association of Glomerular Filtration Rate (GFR) and Staging of Kidney Disease* + --+ --+ ------+| GFR (mL/min/1.73 m2) ?| With Kidney Damage ?| ?Without Kidney Damage+ --------+ --------+ +| ?>90 ?| ?Stage one ?| ? Normal ?+ ---+ ---+ -------+| ?60-89 ?| ?Stage two ?| ? Decreased GFR ? + --+ --+ ------+| ?30-59 ?| ?Stage three ?| ? Stage three ? + --+ --+ ------+| ?15-29 ?| ?Stage four ? | ? Stage four ?+ ---+ ---+ -------+| ?<15 (or dialysis) ? ?| ?Stage five ? | ? Stage five ?+ ---+ ---+ -------+ *Each stage assumes the associated GFR level has been in effect for at least three months. ?Stages 1 to 5, with or without kidney disease, indicate chronic kidney disease. Notes: Determination of stages one and two (with eGFR >59mL/min/1.73 m2) requires estimation of kidney damage for at least three months as defined by structural or functional abnormalities of the kidney, manifested by either:Pathological abnormalities or Markers of kidney damage (including abnormalities in the composition of the blood or urine or abnormalities in imaging tests). Lab Interpretation (test code = 65515-6) [facility]2023-[facility]-17 09:50:23* Test Item Value Reference Range Interpretation Comme nts PHOSPHORUS (test code = 9946435188) 3.0 mg/dL 2.5-5.0 Lab Interpretation (test cod e = 30305-8) [facility]23-[facility]-17 09:50:23* Test Item Value Reference Range Interpretation Comme nts MAGNESIUM (test code = 3863261995) 2.1 mg/dL 1.7-2.4 Lab Interpretation (test cod e = 03030-2) Normal [facility] WITH [id number] 10:37:26* Test Item Value Reference Range Interpretation Comme nts WBC (test code = 6690-2) 2.86 See_Comment L [Automated messa ge] The system which generated this result transmitted reference range: 4.20 - 10.70 10*3/?L. The reference range was not used to interpret this result as normal/abnormal. RBC (test code = 789-8) 3.49 See_Comment L [Automated messa ge] The system which generated this result transmitted reference range: 4.26 - 5.52 10*6/?L. The reference range was not used to interpret this result as normal/abnormal. HGB (test code = 718-7) 11.1 g/dL 12.2-16.4 L HCT (test code = 4544-3) 32.5 % 38.4-49.3 L MCV (test code = 787-2) 93.1 fL 81.7-95.6 MCH (test code = 785-6) 31.8 pg 26.1-32.7 MCHC (test code = 786-4) 34.2 g/dL 31.2-35.0 RDW-SD (test code = 62356-5) 53.9 fL 38.5-51.6 H RDW-CV (test code = 788-0) 17.2 % 12.1-15.4 H PLT (test code = 777-3) 52 See_Comment L [Automated messa ge] The system which generated this result transmitted reference range: 150 - 328 10*3/?L. The reference range was not used to interpret this result as normal/abnormal. MPV (test code = 67153-3) 11.1 fL 9.8-13.0 IPF % (test code = 7184318319) 4.3 % 1.2-10.7 Platelet count measured by fluorescence method. NRBC/100 WBC (test code = 9848959738) 0.0 See_Comment [Automated ASP64 ssage] The system which generated this result transmitted reference range: 0.0 - 10.0 /100 WBCs. The reference range was not used to interpret this result as normal/abnormal. NRBC x10^3 (test code = 8810022221) See_Comment [Automated messa ge] The system which generated this result transmitted reference range: 10*3/?L. The reference range was not used to interpret this result as normal/abnormal. GRAN MAT (NEUT) % (test code = 770-8) 85.4 % IMM GRAN % (test code = [id number]) 1.00 % LYMPH % (test code = 736-9) 3.8 % MONO % (test code = 5905-5) 9.8 % EOS % (test code = 713-8) 0.0 % BASO % (test code = 706-2) 0.0 % GRAN MAT x10^3(ANC) (test code = [id number]) 2.44 10*3/uL 1.99-6.95 IMM GRAN x10^3 (test code = [id number]) 0.03 10*3/uL 0.00-0.06 LYMPH x10^3 (test code = 731-0) 0.11 10*3/uL 1.09-3.23 L MONO x10^3 (test code = 742-7) 0.28 10*3/uL 0.36-1.02 L EOS x10^3 (test code = 711-2) 0.06-0.53 L BASO x10^3 (test code = 704-7) 0.01-0.09 Lab Interpretation (test code = 91943-8) [facility] [id number] 10:19:02* Test Item Value Reference Range Interpretation Comme nts LDH (test code = 5918199812) 366 U/L 120-246 H Lab Interpretation (test cod e = 11431-0) [facility] 10:19:02* Test Item Value Reference Range Interpretation Comme nts PHOSPHORUS (test code = 9756674890) 2.8 mg/dL 2.5-5.0 Lab Interpretation (test cod e = 06036-2) [facility] [id number] 10:19:02* Test Item Value Reference Range Interpretation Comme nts URIC ACID (test code = 6154339669) 4.0 mg/dL 3.6-8.0 Lab Interpretation (test cod e = 24914-4) [facility] (NA, K, CL, CO2, GLUCOSE, BUN, CREATININE, CA)2022-12-07 10:19:02* Test Item Value Reference Range Interpretation Comme nts NA (test code = 7648660819) 135 mmol/L 135-145 K (test code = 7258488993) 3.9 mmol/L 3.5-5.0 CL (test code = 7030020431) 107 mmol/L 98-108 CO2 TOTAL (test code = 1987429433) 23 mmol/L 23-31 AGAP (test code = 4324821712) 5 2-16 BUN (test code = 5420811958) 20 mg/dL 7-23 GLUCOSE (test code = 9948082980) 135 mg/dL 70-110 H CREATININE (test code = 3383702681) 0.52 mg/dL 0.60-1.25 L CALCIUM (test code = 4407899744) 7.3 mg/dL 8.6-10.6 L eGFR (test code = 6919875186) 165.0 mL/min/1.73m2 MONTSERRAT (test code = MONTSERRAT) Association of Glomerular Filtration Rate (GFR) and Staging of Kidney Disease* + --+ --+ ------+| GFR (mL/min/1.73 m2) ?| With Kidney Damage ?| ?Without Kidney Damage+ --------+ --------+ +| ?>90 ?| ?Stage one ?| ? Normal ?+ ---+ ---+ -------+| ?60-89 ?| ?Stage two ?| ? Decreased GFR ? + --+ --+ ------+| ?30-59 ?| ?Stage three ?| ? Stage three ? + --+ --+ ------+| ?15-29 ?| ?Stage four ? | ? Stage four ?+ ---+ ---+ -------+| ?<15 (or dialysis) ? ?| ?Stage five ? | ? Stage five ?+ ---+ ---+ -------+ *Each stage assumes the associated GFR level has been in effect for at least three months. ?Stages 1 to 5, with or without kidney disease, indicate chronic kidney disease. Notes: Determination of stages one and two (with eGFR >59mL/min/1.73 m2) requires estimation of kidney damage for at least three months as defined by structural or functional abnormalities of the kidney, manifested by either:Pathological abnormalities or Markers of kidney damage (including abnormalities in the composition of the blood or urine or abnormalities in imaging tests). Lab Interpretation (test code = 71235-3) [facility] 10:19:02* Test Item Value Reference Range Interpretation Comme nts MAGNESIUM (test code = 8063916651) 2.0 mg/dL 1.7-2.4 Lab Interpretation (test cod e = 03734-3) Normal [facility] WITH [id number] 17:29:24* Test Item Value Reference Range Interpretation Comme nts WBC (test code = 6690-2) 3.91 See_Comment L [Automated messa ge] The system which generated this result transmitted reference range: 4.20 - 10.70 10*3/?L. The reference range was not used to interpret this result as normal/abnormal. RBC (test code = 789-8) 3.37 See_Comment L [Automated messa ge] The system which generated this result transmitted reference range: 4.26 - 5.52 10*6/?L. The reference range was not used to interpret this result as normal/abnormal. HGB (test code = 718-7) 10.8 g/dL 12.2-16.4 L HCT (test code = 4544-3) 30.9 % 38.4-49.3 L MCV (test code = 787-2) 91.7 fL 81.7-95.6 MCH (test code = 785-6) 32.0 pg 26.1-32.7 MCHC (test code = 786-4) 35.0 g/dL 31.2-35.0 RDW-SD (test code = 25774-0) 51.2 fL 38.5-51.6 RDW-CV (test code = 788-0) 16.8 % 12.1-15.4 H PLT (test code = 777-3) 51 See_Comment L [Automated messa ge] The system which generated this result transmitted reference range: 150 - 328 10*3/?L. The reference range was not used to interpret this result as normal/abnormal. MPV (test code = 05190-0) 10.6 fL 9.8-13.0 IPF % (test code = 4686137917) 4.1 % 1.2-10.7 Platelet count measured by fluorescence method. NRBC/100 WBC (test code = 6881488239) 0.0 See_Comment [Automated me ssage] The system which generated this result transmitted reference range: 0.0 - 10.0 /100 WBCs. The reference range was not used to interpret this result as normal/abnormal. NRBC x10^3 (test code = 3145222578) See_Comment [Automated messa ge] The system which generated this result transmitted reference range: 10*3/?L. The reference range was not used to interpret this result as normal/abnormal. GRAN MAT (NEUT) % (test code = 770-8) 86.7 % IMM GRAN % (test code = 1090231538) 1.00 % LYMPH % (test code = 736-9) 2.8 % MONO % (test code = 5905-5) 9.5 % EOS % (test code = 713-8) 0.0 % BASO % (test code = 706-2) 0.0 % GRAN MAT x10^3(ANC) (test code = 8536656368) 3.39 10*3/uL 1.99-6.95 IMM GRAN x10^3 (test code = 2504885875) 0.04 10*3/uL 0.00-0.06 LYMPH x10^3 (test code = 731-0) 0.11 10*3/uL 1.09-3.23 L MONO x10^3 (test code = 742-7) 0.37 10*3/uL 0.36-1.02 EOS x10^3 (test code = 711-2) 0.06-0.53 L BASO x10^3 (test code = 704-7) 0.01-0.09 Lab Interpretation (test code = 64595-8) [facility] 17:08:40* Test Item Value Reference Range Interpretation Comme nts MAGNESIUM (test code = 0010894771) 2.0 mg/dL 1.7-2.4 Lab Interpretation (test cod e = 39930-0) [facility] (NA, K, CL, CO2, GLUCOSE, BUN, CREATININE, CA)2022-12-06 17:08:40* Test Item Value Reference Range Interpretation Comme nts NA (test code = 3820326334) 136 mmol/L 135-145 K (test code = 7447817712) 3.5 mmol/L 3.5-5.0 CL (test code = 0107532804) 110 mmol/L 98-108 H CO2 TOTAL (test code = 3721110327) 24 mmol/L 23-31 AGAP (test code = 2987348152) 2 2-16 BUN (test code = 9048030621) 23 mg/dL 7-23 GLUCOSE (test code = 1800479949) 115 mg/dL 70-110 H CREATININE (test code = 4505992048) 0.62 mg/dL 0.60-1.25 CALCIUM (test code = 9777783825) 7.6 mg/dL 8.6-10.6 L eGFR (test code = 9921311521) 134.7 mL/min/1.73m2 MONTSERRAT (test code = MONTSERRAT) Association of Glomerular Filtration Rate (GFR) and Staging of Kidney Disease* + --+ --+ ------+| GFR (mL/min/1.73 m2) ?| With Kidney Damage ?| ?Without Kidney Damage+ --------+ --------+ +| ?>90 ?| ?Stage one ?| ? Normal ?+ ---+ ---+ -------+| ?60-89 ?| ?Stage two ?| ? Decreased GFR ? + --+ --+ ------+| ?30-59 ?| ?Stage three ?| ? Stage three ? + --+ --+ ------+| ?15-29 ?| ?Stage four ? | ? Stage four ?+ ---+ ---+ -------+| ?<15 (or dialysis) ? ?| ?Stage five ? | ? Stage five ?+ ---+ ---+ -------+ *Each stage assumes the associated GFR level has been in effect for at least three months. ?Stages 1 to 5, with or without kidney disease, indicate chronic kidney disease. Notes: Determination of stages one and two (with eGFR >59mL/min/1.73 m2) requires estimation of kidney damage for at least three months as defined by structural or functional abnormalities of the kidney, manifested by either:Pathological abnormalities or Markers of kidney damage (including abnormalities in the composition of the blood or urine or abnormalities in imaging tests). Lab Interpretation (test code = 32097-2) [facility]08664[facility] (ALB,T.PRO,BILI T,BU/BC,ALT,AST,ALK PHOS)2022-12-06 17:08:40* Test Item Value Reference Range Interpretation Comme nts TOTAL BILI (test code = 2426653299) 1.4 mg/dL 0.1-1.1 H BILI UNCON (test code = 6297684740) 1.3 mg/dL 0.1-1.1 H BILI CONJ (test code = 9521991522) 0.0 mg/dL 0.0-0.3 T PROTEIN (test code = 2712770565) 5.4 g/dL 6.3-8.2 L ALBUMIN (test code = 6335893978) 2.9 g/dL 3.5-5.0 L ALK PHOS (test code = 5525166118) 166 U/L 34-122 H ALTv (test code = 1742-6) 181 U/L 5-50 H AST(SGOT) (test code = 3971193899) 136 U/L 13-40 H Lab Interpretation (test cod e = 68939-1) [facility] WITH [id number] 11:39:49* Test Item Value Reference Range Interpretation Comme nts WBC (test code = 6690-2) 1.31 See_Comment LL [Automated DineGasma ge] The system which generated this result transmitted reference range: 4.20 - 10.70 10*3/?L. The reference range was not used to interpret this result as normal/abnormal. RBC (test code = 789-8) 3.71 See_Comment L [Automated messa ge] The system which generated this result transmitted reference range: 4.26 - 5.52 10*6/?L. The reference range was not used to interpret this result as normal/abnormal. HGB (test code = 718-7) 11.8 g/dL 12.2-16.4 L HCT (test code = 4544-3) 33.8 % 38.4-49.3 L MCV (test code = 787-2) 91.1 fL 81.7-95.6 MCH (test code = 785-6) 31.8 pg 26.1-32.7 MCHC (test code = 786-4) 34.9 g/dL 31.2-35.0 RDW-SD (test code = 92444-2) 46.6 fL 38.5-51.6 RDW-CV (test code = 788-0) 13.9 % 12.1-15.4 PLT (test code = 777-3) 50 See_Comment LL [Automated DineGasma ge] The system which generated this result transmitted reference range: 150 - 328 10*3/?L. The reference range was not used to interpret this result as normal/abnormal. MPV (test code = 77194-6) 11.7 fL 9.8-13.0 IPF % (test code = 6146765238) 4.3 % 1.2-10.7 Platelet count measured by fluorescence method. NRBC/100 WBC (test code = 8412042987) 0.0 See_Comment [Automated ASP64 ssage] The system which generated this result transmitted reference range: 0.0 - 10.0 /100 WBCs. The reference range was not used to interpret this result as normal/abnormal. NRBC x10^3 (test code = 9395451814) See_Comment [Automated DineGasma ge] The system which generated this result transmitted reference range: 10*3/?L. The reference range was not used to interpret this result as normal/abnormal. GRAN MAT (NEUT) % (test code = 770-8) 63.3 % IMM GRAN % (test code = 2522716151) 4.60 % LYMPH % (test code = 736-9) 12.2 % MONO % (test code = 5905-5) 19.1 % EOS % (test code = 713-8) 0.8 % BASO % (test code = 706-2) 0.0 % GRAN MAT x10^3(ANC) (test code = 9399916386) 0.83 10*3/uL 1.99-6.95 L IMM GRAN x10^3 (test code = 2150465076) 0.06 10*3/uL 0.00-0.06 LYMPH x10^3 (test code = 731-0) 0.16 10*3/uL 1.09-3.23 L MONO x10^3 (test code = 742-7) 0.25 10*3/uL 0.36-1.02 L EOS x10^3 (test code = 711-2) 0.06-0.53 L BASO x10^3 (test code = 704-7) 0.01-0.09 Lab Interpretation (test code = 56983-4) Abnormal [facility] METABOLIC PANEL (NA, K, CL, CO2, GLUCOSE, BUN, CREATININE, CA)2022-11-18 11:32:27* Test Item Value Reference Range Interpretation Comme nts NA (test code = 4588791846) 138 mmol/L 135-145 K (test code = 4474033897) 3.6 mmol/L 3.5-5.0 CL (test code = 4113438432) 110 mmol/L 98-108 H CO2 TOTAL (test code = 7455581353) 24 mmol/L 23-31 AGAP (test code = 2834163866) 4 2-16 BUN (test code = 0608902220) 16 mg/dL 7-23 GLUCOSE (test code = 8631424100) 84 mg/dL 70-110 CREATININE (test code = 0015670462) 0.51 mg/dL 0.60-1.25 L CALCIUM (test code = 9987288653) 6.8 mg/dL 8.6-10.6 L eGFR (test code = 1983071540) 168.7 mL/min/1.73m2 MONTSERRAT (test code = MONTSERRAT) Association of Glomerular Filtration Rate (GFR) and Staging of Kidney Disease* + --+ --+ ------+| GFR (mL/min/1.73 m2) ?| With Kidney Damage ?| ?Without Kidney Damage+ --------+ --------+ +| ?>90 ?| ?Stage one ?| ? Normal ?+ ---+ ---+ -------+| ?60-89 ?| ?Stage two ?| ? Decreased GFR ? + --+ --+ ------+| ?30-59 ?| ?Stage three ?| ? Stage three ? + --+ --+ ------+| ?15-29 ?| ?Stage four ? | ? Stage four ?+ ---+ ---+ -------+| ?<15 (or dialysis) ? ?| ?Stage five ? | ? Stage five ?+ ---+ ---+ -------+ *Each stage assumes the associated GFR level has been in effect for at least three months. ?Stages 1 to 5, with or without kidney disease, indicate chronic kidney disease. Notes: Determination of stages one and two (with eGFR >59mL/min/1.73 m2) requires estimation of kidney damage for at least three months as defined by structural or functional abnormalities of the kidney, manifested by either:Pathological abnormalities or Markers of kidney damage (including abnormalities in the composition of the blood or urine or abnormalities in imaging tests). Lab Interpretation (test code = 27376-0) [facility] 11:32:27* Test Item Value Reference Range Interpretation Comme nts MAGNESIUM (test code = 0352220248) 2.1 mg/dL 1.7-2.4 Lab Interpretation (test cod e = 43664-1) [facility] [id number] 11:32:27* Test Item Value Reference Range Interpretation Comme nts LDH (test code = 8151055671) 153 U/L 120-246 Lab Interpretation (test cod e = 24976-6) [facility] [id number] 11:32:27* Test Item Value Reference Range Interpretation Comme nts URIC ACID (test code = 9419180587) 2.4 mg/dL 3.6-8.0 L Lab Interpretation (test cod e = 40154-2) [facility]23-[facility]-28 11:32:27* Test Item Value Reference Range Interpretation Comme nts PHOSPHORUS (test code = 6762214991) 2.5 mg/dL 2.5-5.0 Lab Interpretation (test cod e = 26145-4) [facility] WITH [id number] 11:35:52* Test Item Value Reference Range Interpretation Comme nts WBC (test code = 6690-2) 2.27 See_Comment L [Automated DineGasma [employer]] The system which generated this result transmitted reference range: 4.20 - 10.70 10*3/?L. The reference range was not used to interpret this result as normal/abnormal. RBC (test code = 789-8) 3.72 See_Comment L [Automated DineGasma ge] The system which generated this result transmitted reference range: 4.26 - 5.52 10*6/?L. The reference range was not used to interpret this result as normal/abnormal. HGB (test code = 718-7) 11.8 g/dL 12.2-16.4 L HCT (test code = 4544-3) 34.0 % 38.4-49.3 L MCV (test code = 787-2) 91.4 fL 81.7-95.6 MCH (test code = 785-6) 31.7 pg 26.1-32.7 MCHC (test code = 786-4) 34.7 g/dL 31.2-35.0 RDW-SD (test code = 95735-0) 46.9 fL 38.5-51.6 RDW-CV (test code = 788-0) 14.0 % 12.1-15.4 PLT (test code = 777-3) 57 See_Comment L [Automated DineGasma ge] The system which generated this result transmitted reference range: 150 - 328 10*3/?L. The reference range was not used to interpret this result as normal/abnormal. MPV (test code = 10036-4) 10.2 fL 9.8-13.0 IPF % (test code = 2582960713) 4.2 % 1.2-10.7 Platelet count measured by fluorescence method. NRBC/100 WBC (test code = 1505553486) 0.0 See_Comment [Automated ASP64 ssage] The system which generated this result transmitted reference range: 0.0 - 10.0 /100 WBCs. The reference range was not used to interpret this result as normal/abnormal. NRBC x10^3 (test code = 3312154264) See_Comment [Automated DineGasma ge] The system which generated this result transmitted reference range: 10*3/?L. The reference range was not used to interpret this result as normal/abnormal. GRAN MAT (NEUT) % (test code = 770-8) 86.8 % IMM GRAN % (test code = 8476065757) 3.50 % LYMPH % (test code = 736-9) 5.3 % MONO % (test code = 5905-5) 4.4 % EOS % (test code = 713-8) 0.0 % BASO % (test code = 706-2) 0.0 % GRAN MAT x10^3(ANC) (test code = 6150989832) 1.97 10*3/uL 1.99-6.95 L IMM GRAN x10^3 (test code = 2913157620) 0.08 10*3/uL 0.00-0.06 H LYMPH x10^3 (test code = 731-0) 0.12 10*3/uL 1.09-3.23 L MONO x10^3 (test code = 742-7) 0.10 10*3/uL 0.36-1.02 L EOS x10^3 (test code = 711-2) 0.06-0.53 L BASO x10^3 (test code = 704-7) 0.01-0.09 Lab Interpretation (test code = 12489-6) Abnormal [facility] METABOLIC PANEL (NA, K, CL, CO2, GLUCOSE, BUN, CREATININE, CA)2022-11-17 11:31:48* Test Item Value Reference Range Interpretation Comme nts NA (test code = 2106880285) 138 mmol/L 135-145 K (test code = 5342301255) 3.8 mmol/L 3.5-5.0 CL (test code = 6218354732) 110 mmol/L 98-108 H CO2 TOTAL (test code = 9041994640) 22 mmol/L 23-31 L AGAP (test code = 6594833790) 6 2-16 BUN (test code = 9708148754) 18 mg/dL 7-23 GLUCOSE (test code = 4077228913) 115 mg/dL 70-110 H CREATININE (test code = 8676216519) 0.52 mg/dL 0.60-1.25 L CALCIUM (test code = 7689438794) 6.8 mg/dL 8.6-10.6 L eGFR (test code = 3726407868) 165.0 mL/min/1.73m2 MONTSERRAT (test code = MONTSERRAT) Association of Glomerular Filtration Rate (GFR) and Staging of Kidney Disease* + --+ --+ ------+| GFR (mL/min/1.73 m2) ?| With Kidney Damage ?| ?Without Kidney Damage+ --------+ --------+ +| ?>90 ?| ?Stage one ?| ? Normal ?+ ---+ ---+ -------+| ?60-89 ?| ?Stage two ?| ? Decreased GFR ? + --+ --+ ------+| ?30-59 ?| ?Stage three ?| ? Stage three ? + --+ --+ ------+| ?15-29 ?| ?Stage four ? | ? Stage four ?+ ---+ ---+ -------+| ?<15 (or dialysis) ? ?| ?Stage five ? | ? Stage five ?+ ---+ ---+ -------+ *Each stage assumes the associated GFR level has been in effect for at least three months. ?Stages 1 to 5, with or without kidney disease, indicate chronic kidney disease. Notes: Determination of stages one and two (with eGFR >59mL/min/1.73 m2) requires estimation of kidney damage for at least three months as defined by structural or functional abnormalities of the kidney, manifested by either:Pathological abnormalities or Markers of kidney damage (including abnormalities in the composition of the blood or urine or abnormalities in imaging tests). Lab Interpretation (test code = 48139-2) [facility] 11:31:48* Test Item Value Reference Range Interpretation Comme nts MAGNESIUM (test code = 0341281331) 2.2 mg/dL 1.7-2.4 Lab Interpretation (test cod e = 33052-9) [facility] [id number] 11:31:48* Test Item Value Reference Range Interpretation Comme nts URIC ACID (test code = 1461786446) 2.1 mg/dL 3.6-8.0 L Lab Interpretation (test cod e = 00410-7) [facility] [id number] 11:31:48* Test Item Value Reference Range Interpretation Comme nts LDH (test code = 7509859037) 162 U/L 120-246 Lab Interpretation (test cod e = 97552-8) [facility]2023-[facility]-27 11:31:48* Test Item Value Reference Range Interpretation Comme nts PHOSPHORUS (test code = 8557255487) 3.0 mg/dL 2.5-5.0 Lab Interpretation (test cod e = 83209-0) [facility] WITH [id number] 12:16:49* Test Item Value Reference Range Interpretation Comme nts WBC (test code = 6690-2) 4.39 See_Comment [Automated messa ge] The system which generated this result transmitted reference range: 4.20 - 10.70 10*3/?L. The reference range was not used to interpret this result as normal/abnormal. RBC (test code = 789-8) 4.11 See_Comment L [Automated messa ge] The system which generated this result transmitted reference range: 4.26 - 5.52 10*6/?L. The reference range was not used to interpret this result as normal/abnormal. HGB (test code = 718-7) 12.8 g/dL 12.2-16.4 HCT (test code = 4544-3) 37.5 % 38.4-49.3 L MCV (test code = 787-2) 91.2 fL 81.7-95.6 MCH (test code = 785-6) 31.1 pg 26.1-32.7 MCHC (test code = 786-4) 34.1 g/dL 31.2-35.0 RDW-SD (test code = 05950-1) 46.3 fL 38.5-51.6 RDW-CV (test code = 788-0) 13.9 % 12.1-15.4 PLT (test code = 777-3) 68 See_Comment L [Automated messa ge] The system which generated this result transmitted reference range: 150 - 328 10*3/?L. The reference range was not used to interpret this result as normal/abnormal. MPV (test code = 23795-8) 10.9 fL 9.8-13.0 IPF % (test code = 3564042845) 4.3 % 1.2-10.7 Platelet count measured by fluorescence method. NRBC/100 WBC (test code = 8322846846) 0.0 See_Comment [Automated me ssage] The system which generated this result transmitted reference range: 0.0 - 10.0 /100 WBCs. The reference range was not used to interpret this result as normal/abnormal. NRBC x10^3 (test code = 6557045450) See_Comment [Automated messa ge] The system which generated this result transmitted reference range: 10*3/?L. The reference range was not used to interpret this result as normal/abnormal. GRAN MAT (NEUT) % (test code = 770-8) 87.9 % IMM GRAN % (test code = 2534656245) 5.90 % LYMPH % (test code = 736-9) 2.3 % MONO % (test code = 5905-5) 3.9 % EOS % (test code = 713-8) 0.0 % BASO % (test code = 706-2) 0.0 % GRAN MAT x10^3(ANC) (test code = 8644484831) 3.86 10*3/uL 1.99-6.95 IMM GRAN x10^3 (test code = 1292945548) 0.26 10*3/uL 0.00-0.06 H LYMPH x10^3 (test code = 731-0) 0.10 10*3/uL 1.09-3.23 L MONO x10^3 (test code = 742-7) 0.17 10*3/uL 0.36-1.02 L EOS x10^3 (test code = 711-2) 0.06-0.53 L BASO x10^3 (test code = 704-7) 0.01-0.09 Lab Interpretation (test code = 25562-9) Abnormal [facility] METABOLIC PANEL (NA, K, CL, CO2, GLUCOSE, BUN, CREATININE, CA)2022-11-16 11:53:30* Test Item Value Reference Range Interpretation Comme nts NA (test code = 0949085387) 140 mmol/L 135-145 K (test code = 0798716160) 3.7 mmol/L 3.5-5.0 CL (test code = 4697400155) 112 mmol/L 98-108 H CO2 TOTAL (test code = 9501494027) 19 mmol/L 23-31 L AGAP (test code = 7946263654) 9 2-16 BUN (test code = 3494881497) 20 mg/dL 7-23 GLUCOSE (test code = 1452329342) 132 mg/dL 70-110 H CREATININE (test code = 7872261033) 0.52 mg/dL 0.60-1.25 L CALCIUM (test code = 4711651614) 7.1 mg/dL 8.6-10.6 L eGFR (test code = 5130702961) 165.0 mL/min/1.73m2 MONTSERRAT (test code = MONTSERRAT) Association of Glomerular Filtration Rate (GFR) and Staging of Kidney Disease* + --+ --+ ------+| GFR (mL/min/1.73 m2) ?| With Kidney Damage ?| ?Without Kidney Damage+ --------+ --------+ +| ?>90 ?| ?Stage one ?| ? Normal ?+ ---+ ---+ -------+| ?60-89 ?| ?Stage two ?| ? Decreased GFR ? + --+ --+ ------+| ?30-59 ?| ?Stage three ?| ? Stage three ? + --+ --+ ------+| ?15-29 ?| ?Stage four ? | ? Stage four ?+ ---+ ---+ -------+| ?<15 (or dialysis) ? ?| ?Stage five ? | ? Stage five ?+ ---+ ---+ -------+ *Each stage assumes the associated GFR level has been in effect for at least three months. ?Stages 1 to 5, with or without kidney disease, indicate chronic kidney disease. Notes: Determination of stages one and two (with eGFR >59mL/min/1.73 m2) requires estimation of kidney damage for at least three months as defined by structural or functional abnormalities of the kidney, manifested by either:Pathological abnormalities or Markers of kidney damage (including abnormalities in the composition of the blood or urine or abnormalities in imaging tests). Lab Interpretation (test code = 38666-9) [facility] 11:53:30* Test Item Value Reference Range Interpretation Comme nts MAGNESIUM (test code = 1343166313) 2.1 mg/dL 1.7-2.4 Lab Interpretation (test cod e = 48563-9) [facility] [id number] 11:53:30* Test Item Value Reference Range Interpretation Comme nts URIC ACID (test code = 0052155843) 2.2 mg/dL 3.6-8.0 L Lab Interpretation (test cod e = 61507-8) [facility] [id number] 11:53:30* Test Item Value Reference Range Interpretation Comme nts LDH (test code = 4342519964) 195 U/L 120-246 Lab Interpretation (test cod e = 19268-8) [facility]23-[facility]-26 11:53:30* Test Item Value Reference Range Interpretation Comme nts PHOSPHORUS (test code = 0800475042) 2.4 mg/dL 2.5-5.0 L Lab Interpretation (test cod e = 09039-4) [facility]normal [facility] [id number] 11:41:53* Test Item Value Reference Range Interpretation Comme nts WBC (test code = 6690-2) 4.71 See_Comment [Automated messa ge] The system which generated this result transmitted reference range: 4.20 - 10.70 10*3/?L. The reference range was not used to interpret this result as normal/abnormal. RBC (test code = 789-8) 3.87 See_Comment L [Automated messa ge] The system which generated this result transmitted reference range: 4.26 - 5.52 10*6/?L. The reference range was not used to interpret this result as normal/abnormal. HGB (test code = 718-7) 12.3 g/dL 12.2-16.4 HCT (test code = 4544-3) 35.4 % 38.4-49.3 L MCV (test code = 787-2) 91.5 fL 81.7-95.6 MCH (test code = 785-6) 31.8 pg 26.1-32.7 MCHC (test code = 786-4) 34.7 g/dL 31.2-35.0 RDW-SD (test code = 88396-5) 45.1 fL 38.5-51.6 RDW-CV (test code = 788-0) 13.7 % 12.1-15.4 PLT (test code = 777-3) 58 See_Comment L [Automated DineGasma ge] The system which generated this result transmitted reference range: 150 - 328 10*3/?L. The reference range was not used to interpret this result as normal/abnormal. MPV (test code = 22963-5) 9.8 fL 9.8-13.0 IPF % (test code = 3683718257) 5.0 % 1.2-10.7 Platelet count measured by fluorescence method. NRBC/100 WBC (test code = 9863939916) 0.0 See_Comment [Automated ASP64 ssage] The system which generated this result transmitted reference range: 0.0 - 10.0 /100 WBCs. The reference range was not used to interpret this result as normal/abnormal. NRBC x10^3 (test code = 9969737631) See_Comment [Automated DineGasma ge] The system which generated this result transmitted reference range: 10*3/?L. The reference range was not used to interpret this result as normal/abnormal. GRAN MAT (NEUT) % (test code = 770-8) 88.9 % IMM GRAN % (test code = 5694239746) 5.30 % LYMPH % (test code = 736-9) 3.0 % MONO % (test code = 5905-5) 2.8 % EOS % (test code = 713-8) 0.0 % BASO % (test code = 706-2) 0.0 % GRAN MAT x10^3(ANC) (test code = 9566669710) 4.19 10*3/uL 1.99-6.95 IMM GRAN x10^3 (test code = 7425485585) 0.25 10*3/uL 0.00-0.06 H LYMPH x10^3 (test code = 731-0) 0.14 10*3/uL 1.09-3.23 L MONO x10^3 (test code = 742-7) 0.13 10*3/uL 0.36-1.02 L EOS x10^3 (test code = 711-2) 0.06-0.53 L BASO x10^3 (test code = 704-7) 0.01-0.09 Lab Interpretation (test code = 60554-6) [facility] (NA, K, CL, CO2, GLUCOSE, BUN, CREATININE, CA)2022-11-15 11:32:14* Test Item Value Reference Range Interpretation Comme nts NA (test code = 0608588999) 141 mmol/L 135-145 K (test code = 1058286109) 3.9 mmol/L 3.5-5.0 CL (test code = 4144868638) 109 mmol/L 98-108 H CO2 TOTAL (test code = 1795594366) 23 mmol/L 23-31 AGAP (test code = 9948535814) 9 2-16 BUN (test code = 0473748778) 20 mg/dL 7-23 GLUCOSE (test code = 5301826247) 154 mg/dL 70-110 H CREATININE (test code = 8331188095) 0.54 mg/dL 0.60-1.25 L CALCIUM (test code = 7310340295) 7.8 mg/dL 8.6-10.6 L eGFR (test code = 6761130872) 158.0 mL/min/1.73m2 MONTSERRAT (test code = MONTSERRAT) Association of Glomerular Filtration Rate (GFR) and Staging of Kidney Disease* + --+ --+ ------+| GFR (mL/min/1.73 m2) ?| With Kidney Damage ?| ?Without Kidney Damage+ --------+ --------+ +| ?>90 ?| ?Stage one ?| ? Normal ?+ ---+ ---+ -------+| ?60-89 ?| ?Stage two ?| ? Decreased GFR ? + --+ --+ ------+| ?30-59 ?| ?Stage three ?| ? Stage three ? + --+ --+ ------+| ?15-29 ?| ?Stage four ? | ? Stage four ?+ ---+ ---+ -------+| ?<15 (or dialysis) ? ?| ?Stage five ? | ? Stage five ?+ ---+ ---+ -------+ *Each stage assumes the associated GFR level has been in effect for at least three months. ?Stages 1 to 5, with or without kidney disease, indicate chronic kidney disease. Notes: Determination of stages one and two (with eGFR >59mL/min/1.73 m2) requires estimation of kidney damage for at least three months as defined by structural or functional abnormalities of the kidney, manifested by either:Pathological abnormalities or Markers of kidney damage (including abnormalities in the composition of the blood or urine or abnormalities in imaging tests). Lab Interpretation (test code = 22683-5) [facility] 11:32:14* Test Item Value Reference Range Interpretation Comme nts MAGNESIUM (test code = 8079917174) 2.1 mg/dL 1.7-2.4 Lab Interpretation (test cod e = 17277-0) [facility] [id number] 11:32:14* Test Item Value Reference Range Interpretation Comme nts URIC ACID (test code = 6159885742) 2.6 mg/dL 3.6-8.0 L Lab Interpretation (test cod e = 08142-4) [facility] 11:32:14* Test Item Value Reference Range Interpretation Comme nts PHOSPHORUS (test code = 5101290294) 3.0 mg/dL 2.5-5.0 Lab Interpretation (test cod e = 39856-5) [facility] [id number] 11:32:14* Test Item Value Reference Range Interpretation Comme nts LDH (test code = 9124669928) 177 U/L 120-246 Lab Interpretation (test cod e = 73091-6) [facility] WITH [id number] 11:01:22* Test Item Value Reference Range Interpretation Comme nts WBC (test code = 6690-2) 3.16 See_Comment L [Automated messa ge] The system which generated this result transmitted reference range: 4.20 - 10.70 10*3/?L. The reference range was not used to interpret this result as normal/abnormal. RBC (test code = 789-8) 4.16 See_Comment L [Automated messa ge] The system which generated this result transmitted reference range: 4.26 - 5.52 10*6/?L. The reference range was not used to interpret this result as normal/abnormal. HGB (test code = 718-7) 12.9 g/dL 12.2-16.4 HCT (test code = 4544-3) 37.9 % 38.4-49.3 L MCV (test code = 787-2) 91.1 fL 81.7-95.6 MCH (test code = 785-6) 31.0 pg 26.1-32.7 MCHC (test code = 786-4) 34.0 g/dL 31.2-35.0 RDW-SD (test code = 45531-7) 43.5 fL 38.5-51.6 RDW-CV (test code = 788-0) 13.2 % 12.1-15.4 PLT (test code = 777-3) 59 See_Comment L [Automated DineGasma ge] The system which generated this result transmitted reference range: 150 - 328 10*3/?L. The reference range was not used to interpret this result as normal/abnormal. MPV (test code = 39696-6) 10.7 fL 9.8-13.0 IPF % (test code = 6717986550) 4.6 % 1.2-10.7 Platelet count measured by fluorescence method. NRBC/100 WBC (test code = 4198873947) 0.0 See_Comment [Automated ASP64 ssage] The system which generated this result transmitted reference range: 0.0 - 10.0 /100 WBCs. The reference range was not used to interpret this result as normal/abnormal. NRBC x10^3 (test code = 1821718937) See_Comment [Automated DineGasma ge] The system which generated this result transmitted reference range: 10*3/?L. The reference range was not used to interpret this result as normal/abnormal. GRAN MAT (NEUT) % (test code = 770-8) 89.5 % IMM GRAN % (test code = 7667658930) 3.80 % LYMPH % (test code = 736-9) 5.1 % MONO % (test code = 5905-5) 1.6 % EOS % (test code = 713-8) 0.0 % BASO % (test code = 706-2) 0.0 % GRAN MAT x10^3(ANC) (test code = 0039818809) 2.83 10*3/uL 1.99-6.95 IMM GRAN x10^3 (test code = 7254661804) 0.12 10*3/uL 0.00-0.06 H LYMPH x10^3 (test code = 731-0) 0.16 10*3/uL 1.09-3.23 L MONO x10^3 (test code = 742-7) 0.05 10*3/uL 0.36-1.02 L EOS x10^3 (test code = 711-2) 0.06-0.53 L BASO x10^3 (test code = 704-7) 0.01-0.09 Lab Interpretation (test code = 68859-1) Abnormal [facility] METABOLIC PANEL (NA, K, CL, CO2, GLUCOSE, BUN, CREATININE, CA)2022-11-14 10:52:58* Test Item Value Reference Range Interpretation Comme nts NA (test code = 3654062085) 137 mmol/L 135-145 K (test code = 1457336611) 3.9 mmol/L 3.5-5.0 CL (test code = 9051373250) 109 mmol/L 98-108 H CO2 TOTAL (test code = 5593953298) 18 mmol/L 23-31 L AGAP (test code = 3378949510) 10 2-16 BUN (test code = 5981660327) 18 mg/dL 7-23 GLUCOSE (test code = 2495653938) 181 mg/dL 70-110 H CREATININE (test code = 0942925236) 0.61 mg/dL 0.60-1.25 CALCIUM (test code = 4408885413) 8.5 mg/dL 8.6-10.6 L eGFR (test code = 5806114394) 137.2 mL/min/1.73m2 MONTSERRAT (test code = MONTSERRAT) Association of Glomerular Filtration Rate (GFR) and Staging of Kidney Disease* + --+ --+ ------+| GFR (mL/min/1.73 m2) ?| With Kidney Damage ?| ?Without Kidney Damage+ --------+ --------+ +| ?>90 ?| ?Stage one ?| ? Normal ?+ ---+ ---+ -------+| ?60-89 ?| ?Stage two ?| ? Decreased GFR ? + --+ --+ ------+| ?30-59 ?| ?Stage three ?| ? Stage three ? + --+ --+ ------+| ?15-29 ?| ?Stage four ? | ? Stage four ?+ ---+ ---+ -------+| ?<15 (or dialysis) ? ?| ?Stage five ? | ? Stage five ?+ ---+ ---+ -------+ *Each stage assumes the associated GFR level has been in effect for at least three months. ?Stages 1 to 5, with or without kidney disease, indicate chronic kidney disease. Notes: Determination of stages one and two (with eGFR >59mL/min/1.73 m2) requires estimation of kidney damage for at least three months as defined by structural or functional abnormalities of the kidney, manifested by either:Pathological abnormalities or Markers of kidney damage (including abnormalities in the composition of the blood or urine or abnormalities in imaging tests). Lab Interpretation (test code = 61653-5) [facility] 10:52:58* Test Item Value Reference Range Interpretation Comme nts MAGNESIUM (test code = 1869238842) 1.7 mg/dL 1.7-2.4 Lab Interpretation (test cod e = 63276-7) Normal [facility] [id number] 10:52:58* Test Item Value Reference Range Interpretation Comme nts URIC ACID (test code = 8080487841) 3.5 mg/dL 3.6-8.0 L Lab Interpretation (test cod e = 83212-3) [facility]normal [facility] MCQJRKNDLEBNG3860-63-09 10:52:58* Test Item Value Reference Range Interpretation Comme nts LDH (test code = 2467286234) 199 U/L 120-246 Lab Interpretation (test cod e = 48549-4) [facility]23-[facility]-24 10:52:58* Test Item Value Reference Range Interpretation Comme nts PHOSPHORUS (test code = 0390613492) 2.1 mg/dL 2.5-5.0 L Lab Interpretation (test cod e = 77413-1) [facility]normal [facility] with Flwzwlisftqh5117-81-61 10:35:43* Test Item Value Reference Range Interpretation Comme nts WBC (test code = 6690-2) 2.24 See_Comment L [Automated messa ge] The system which generated this result transmitted reference range: 4.20 - 10.70 10*3/?L. The reference range was not used to interpret this result as normal/abnormal. RBC (test code = 789-8) 4.18 See_Comment L [Automated messa ge] The system which generated this result transmitted reference range: 4.26 - 5.52 10*6/?L. The reference range was not used to interpret this result as normal/abnormal. HGB (test code = 718-7) 13.2 g/dL 12.2-16.4 HCT (test code = 4544-3) 37.6 % 38.4-49.3 L MCV (test code = 787-2) 90.0 fL 81.7-95.6 MCH (test code = 785-6) 31.6 pg 26.1-32.7 MCHC (test code = 786-4) 35.1 g/dL 31.2-35.0 H RDW-SD (test code = 14572-8) 43.8 fL 38.5-51.6 RDW-CV (test code = 788-0) 13.3 % 12.1-15.4 PLT (test code = 777-3) 65 See_Comment L [Automated messa ge] The system which generated this result transmitted reference range: 150 - 328 10*3/?L. The reference range was not used to interpret this result as normal/abnormal. MPV (test code = 76125-2) 10.8 fL 9.8-13.0 IPF % (test code = 7476514833) 4.0 % 1.2-10.7 Platelet count measured by fluorescence method. NRBC/100 WBC (test code = 4713034461) 0.0 See_Comment [Automated ASP64 ssage] The system which generated this result transmitted reference range: 0.0 - 10.0 /100 WBCs. The reference range was not used to interpret this result as normal/abnormal. NRBC x10^3 (test code = 7049038413) See_Comment [Automated messa ge] The system which generated this result transmitted reference range: 10*3/?L. The reference range was not used to interpret this result as normal/abnormal. GRAN MAT (NEUT) % (test code = 770-8) 64.7 % IMM GRAN % (test code = 5433228856) 0.90 % LYMPH % (test code = 736-9) 18.8 % MONO % (test code = 5905-5) 10.3 % EOS % (test code = 713-8) 4.9 % BASO % (test code = 706-2) 0.4 % GRAN MAT x10^3(ANC) (test code = 3748840515) 1.45 10*3/uL 1.99-6.95 L IMM GRAN x10^3 (test code = 7891471942) 0.00-0.06 LYMPH x10^3 (test code = 731-0) 0.42 10*3/uL 1.09-3.23 L MONO x10^3 (test code = 742-7) 0.23 10*3/uL 0.36-1.02 L EOS x10^3 (test code = 711-2) 0.11 10*3/uL 0.06-0.53 BASO x10^3 (test code = 704-7) 0.01-0.09 Lab Interpretation (test code = 29907-2) [facility]normal [facility] IrvingMagnesium Mdrbv5026-12-29 10:28:00* Test Item Value Reference Range Interpretation Comme nts MAGNESIUM (test code = 4456008561) 1.9 mg/dL 1.7-2.4 Lab Interpretation (test cod e = 57989-9) [facility] [id number] 10:28:00* Test Item Value Reference Range Interpretation Comme nts URIC ACID (test code = 9440808042) 5.0 mg/dL 3.6-8.0 Lab Interpretation (test cod e = 25095-3) [facility]2023-[facility]-23 10:28:00* Test Item Value Reference Range Interpretation Comme nts PHOSPHORUS (test code = 0309836019) 4.2 mg/dL 2.5-5.0 Lab Interpretation (test cod e = 27601-6) [facility] [id number] 10:28:00* Test Item Value Reference Range Interpretation Comme nts LDH (test code = 8723351633) 226 U/L 120-246 Lab Interpretation (test cod e = 96105-5) Normal [facility] Metabolic Panel (NA, K, CL, CO2, GLUCOSE, BUN, CREATININE, CA)2022-11-13 10:27:59* Test Item Value Reference Range Interpretation Comme nts NA (test code = 4133537965) 137 mmol/L 135-145 K (test code = 2720460958) 3.8 mmol/L 3.5-5.0 CL (test code = 9852405795) 105 mmol/L 98-108 CO2 TOTAL (test code = 1829726844) 25 mmol/L 23-31 AGAP (test code = 0127304149) 7 2-16 BUN (test code = 3767434439) 16 mg/dL 7-23 GLUCOSE (test code = 2677577391) 89 mg/dL 70-110 CREATININE (test code = 2780464436) 0.63 mg/dL 0.60-1.25 CALCIUM (test code = 3670272432) 8.7 mg/dL 8.6-10.6 eGFR (test code = 6681259472) 132.2 mL/min/1.73m2 MONTSERRAT (test code = MONTSERRAT) Association of Glomerular Filtration Rate (GFR) and Staging of Kidney Disease* + + +- +| GFR (mL/min/1.73 m2) ?| With Kidney Damage ?| ?Without Kidney Damage+ ------+ ----+ ------+| ?>90 ?| ?Stage one ?| ? Normal ?+ -+ + -+| ?60-89 ?| ?Stage two ?| ? Decreased GFR ? + + +- +| ?30-59 ?| ?Stage three ?| ? Stage three ? + + +- +| ?15-29 ?| ?Stage four ? | ? Stage four ?+ -+ + -+| ?<15 (or dialysis) ? ?| ?Stage five ? | ? Stage five ?+ -+ + -+ *Each stage assumes the associated GFR level has been in effect for at least three months. ?Stages 1 to 5, with or without kidney disease, indicate chronic kidney disease. Notes: Determination of stages one and two (with eGFR >59mL/min/1.73 m2) requires estimation of kidney damage for at least three months as defined by structural or functional abnormalities of the kidney, manifested by either:Pathological abnormalities or Markers of kidney damage (including abnormalities in the composition of the blood or urine or abnormalities in imaging tests). [facility] WITH [id number] 19:17:12* Test Item Value Reference Range Interpretation Comme nts WBC (test code = 6690-2) See_Comment L [Automated DineGasma EyeSpot] The system which generated this result transmitted reference range: 4.20 - 10.70 10*3/?L. The reference range was not used to interpret this result as normal/abnormal. RBC (test code = 789-8) See_Comment L [Automated DineGasma EyeSpot] The system which generated this result transmitted reference range: 4.26 - 5.52 10*6/?L. The reference range was not used to interpret this result as normal/abnormal. HGB (test code = 718-7) 10.1 g/dL 12.2-16.4 L HCT (test code = 4544-3) 30.7 % 38.4-49.3 L MCV (test code = 787-2) 96.8 fL 81.7-95.6 H MCH (test code = 785-6) 31.9 pg 26.1-32.7 MCHC (test code = 786-4) 32.9 g/dL 31.2-35.0 RDW-SD (test code = 86241-2) 80.3 fL 38.5-51.6 H RDW-CV (test code = 788-0) 23.3 % 12.1-15.4 H PLT (test code = 777-3) See_Comment L [Automated DineGasma EyeSpot] The system which generated this result transmitted reference range: 150 - 328 10*3/?L. The reference range was not used to interpret this result as normal/abnormal. MPV (test code = 80621-1) 11.1 fL 9.8-13.0 IPF % (test code = 7689234970) 3.5 % 1.2-10.7 Platelet count measured by fluorescence method. NRBC/100 WBC (test code = 0854901291) See_Comment [Automated me ssage] The system which generated this result transmitted reference range: 0.0 - 10.0 /100 WBCs. The reference range was not used to interpret this result as normal/abnormal. NRBC x10^3 (test code = 2993253157) See_Comment [Automated messa ge] The system which generated this result transmitted reference range: 10*3/?L. The reference range was not used to interpret this result as normal/abnormal. GRAN MAT (NEUT) % (test code = 770-8) 68.3 % IMM GRAN % (test code = 6966406901) 0.40 % LYMPH % (test code = 736-9) 13.0 % MONO % (test code = 5905-5) 17.0 % EOS % (test code = 713-8) 0.0 % BASO % (test code = 706-2) 1.3 % GRAN MAT x10^3(ANC) (test code = 9758701228) 1.57 10*3/uL 1.99-6.95 L IMM GRAN x10^3 (test code = 0172178446) 0.00-0.06 LYMPH x10^3 (test code = 731-0) 0.30 10*3/uL 1.09-3.23 L MONO x10^3 (test code = 742-7) 0.39 10*3/uL 0.36-1.02 EOS x10^3 (test code = 711-2) 0.06-0.53 L BASO x10^3 (test code = 704-7) 0.03 10*3/uL 0.01-0.09 TEARDROP CELLS (test code = 7791-7) 2+ See_Comment A [Automated messa ge] The system which generated this result transmitted reference range: (none). The reference range was not used to interpret this result as normal/abnormal. Lab Interpretation (test code = 54823-9) [facility] IrvingType and Screen - ONCE Inmfokc8439-27-84 22:38:58* Test Item Value Reference Range Interpretation Comme nts ABO & RH (test code = 20) O POSITIVE Performed at [facility] B Laboratory Services - [facility] Blood [address] [place] [address]Krzv Free: [phone] No. [id number] IAT (test code = 1185) Negative Performed at [facility] Laboratory [address] Free: [phone] No. [id number] [facility] IrvingPrepare Platelets (in units): 1 Units~Indication: 1) Platelets < 10,000 for bleeding prophylaxis; Special Requirements: Leukoreduced, Gwqoqbpkww3155-31-95 15:49:14* Test Item Value Reference Range Interpretation Comme nts Unit Blood Type (test code = 4410) O Pos ISBT Blood Type Code (test code = 889252) Unit Number (test code = 4411) [id number] Blood Expiration Date & Time (test code = 685673) Status Information (test code = 4412) Issued Product Identification (test code = 4413) Platelets Product Code (test code = 4414) [id number] Performed at [facility] Laboratory [address] Free: [phone] No. [id number] [facility] IrvingCBC WITH [id number] 12:54:53* Test Item Value Reference Range Interpretation Comme nts WBC (test code = 6690-2) See_Comment LL [Automated messa ge] The system which generated this result transmitted reference range: 4.20 - 10.70 10*3/?L. The reference range was not used to interpret this result as normal/abnormal. RBC (test code = 789-8) See_Comment L [Automated messa ge] The system which generated this result transmitted reference range: 4.26 - 5.52 10*6/?L. The reference range was not used to interpret this result as normal/abnormal. HGB (test code = 718-7) 7.8 g/dL 12.2-16.4 L HCT (test code = 4544-3) 22.7 % 38.4-49.3 L MCV (test code = 787-2) 86.3 fL 81.7-95.6 MCH (test code = 785-6) 29.7 pg 26.1-32.7 MCHC (test code = 786-4) 34.4 g/dL 31.2-35.0 RDW-SD (test code = 14046-0) 49.5 fL 38.5-51.6 RDW-CV (test code = 788-0) 15.8 % 12.1-15.4 H PLT (test code = 777-3) See_Comment LL [Automated DineGasma ge] The system which generated this result transmitted reference range: 150 - 328 10*3/?L. The reference range was not used to interpret this result as normal/abnormal. MPV (test code = 58205-8) Not Measured IPF % (test code = 2789192805) 1.3 % 1.2-10.7 The IPF value ma y not be reliable when the patient's platelet count is less than 10 x 10*3/uL due to the higher imprecision of the IPF at low counts. Platelet count measured by fluorescence method. NRBC/100 WBC (test code = 8191627454) See_Comment [Automated ASP64 ssage] The system which generated this result transmitted reference range: 0.0 - 10.0 /100 WBCs. The reference range was not used to interpret this result as normal/abnormal. NRBC x10^3 (test code = 3763336446) See_Comment [Automated DineGasma ge] The system which generated this result transmitted reference range: 10*3/?L. The reference range was not used to interpret this result as normal/abnormal. GRAN MAT (NEUT) % (test code = 770-8) 22.4 % IMM GRAN % (test code = 0538919235) 2.60 % LYMPH % (test code = 736-9) 40.8 % MONO % (test code = 5905-5) 32.9 % EOS % (test code = 713-8) 1.3 % BASO % (test code = 706-2) 0.0 % GRAN MAT x10^3(ANC) (test code = 4334335813) 0.17 10*3/uL 1.99-6.95 L IMM GRAN x10^3 (test code = 6799495272) 0.00-0.06 LYMPH x10^3 (test code = 731-0) 0.31 10*3/uL 1.09-3.23 L MONO x10^3 (test code = 742-7) 0.25 10*3/uL 0.36-1.02 L EOS x10^3 (test code = 711-2) 0.06-0.53 L BASO x10^3 (test code = 704-7) 0.01-0.09 Lab Interpretation (test code = 26211-1) [facility] IrvingCOMP. METABOLIC PANEL (88788)2022-07-01 12:27:00* Test Item Value Reference Range Interpretation Comme nts NA (test code = 1826716844) 140 mmol/L 135-145 K (test code = 6214610975) 3.6 mmol/L 3.5-5.0 CL (test code = 3466566894) 103 mmol/L 98-108 CO2 TOTAL (test code = 4960313294) 29 mmol/L 23-31 AGAP (test code = 9844970961) 2-16 BUN (test code = 3265116326) 10 mg/dL 7-23 GLUCOSE (test code = 6730386808) 102 mg/dL 70-110 CREATININE (test code = 9711520046) 0.52 mg/dL 0.60-1.25 L TOTAL BILI (test code = 0204613098) 1.0 mg/dL 0.1-1.1 CALCIUM (test code = 5340402822) 8.4 mg/dL 8.6-10.6 L T PROTEIN (test code = 2774423567) 6.4 g/dL 6.3-8.2 ALBUMIN (test code = 9424319579) 3.4 g/dL 3.5-5.0 L ALK PHOS (test code = 9629608926) 100 U/L 34-122 ALTv (test code = 1742-6) 114 U/L 5-50 H AST(SGOT) (test code = 1664148562) 88 U/L 13-40 H eGFR (test code = 4763473695) mL/min/1.73m2 MONTSERRAT (test code = MONTSERRAT) Association of Glomerular Filtration Rate (GFR) and Staging of Kidney Disease* + --+ --+ ------+| GFR (mL/min/1.73 m2) ?| With Kidney Damage ?| ?Without Kidney Damage+ --------+ --------+ +| ?>90 ?| ?Stage one ?| ? Normal ?+ ---+ ---+ -------+| ?60-89 ?| ?Stage two ?| ? Decreased GFR ? + --+ --+ ------+| ?30-59 ?| ?Stage three ?| ? Stage three ? + --+ --+ ------+| ?15-29 ?| ?Stage four ? | ? Stage four ?+ ---+ ---+ -------+| ?<15 (or dialysis) ? ?| ?Stage five ? | ? Stage five ?+ ---+ ---+ -------+ *Each stage assumes the associated GFR level has been in effect for at least three months. ?Stages 1 to 5, with or without kidney disease, indicate chronic kidney disease. Notes: Determination of stages one and two (with eGFR >59mL/min/1.73 m2) requires estimation of kidney damage for at least three months as defined by structural or functional abnormalities of the kidney, manifested by either:Pathological abnormalities or Markers of kidney damage (including abnormalities in the composition of the blood or urine or abnormalities in imaging tests). Lab Interpretation (test code = 79787-8) [facility] Irving[facility] [id number] 12:27:00* Test Item Value Reference Range Interpretation Comme nts URIC ACID (test code = 3912875447) 3.8 mg/dL 3.6-8.0 Lab Interpretation (test cod e = 99729-9) [facility] IrvingLACT[facility] QQUFLKAPXHJOG7239-12-31 12:27:00* Test Item Value Reference Range Interpretation Comme nts LDH (test code = 4803206606) 183 U/L 120-246 Lab Interpretation (test cod e = 28948-0) [facility] 12:27:00* Test Item Value Reference Range Interpretation Comme nts MAGNESIUM (test code = 5160130214) 1.6 mg/dL 1.7-2.4 L Lab Interpretation (test cod e = 64578-6) [facility]normal [facility] 12:27:00* Test Item Value Reference Range Interpretation Comme nts PHOSPHORUS (test code = 3241244828) 3.4 mg/dL 2.5-5.0 Lab Interpretation (test cod e = 25659-5) [facility] Plate[facility] (in units): 1 Units~Indication: 1) Platelets < 10,000 for bleeding prophylaxis; Special Requirements: Leukoreduced, Aqfxjpknig5111-46-03 16:22:00* Test Item Value Reference Range Interpretation Comme nts Unit Blood Type (test code = 4410) O Pos ISBT Blood Type Code (test code = 524406) Unit Number (test code = 4411) [id number] Blood Expiration Date & Time (test code = 301296) Status Information (test code = 4412) Issued Product Identification (test code = 4413) Platelets Product Code (test code = 4414) [id number] Performed at [facility] Laboratory Services [facility] Blood [place] [id number] Free: [phone] No. [id number] [facility] WITH [id number] 13:03:17* Test Item Value Reference Range Interpretation Comme nts WBC (test code = 6690-2) See_Comment LL [Automated messa ge] The system which generated this result transmitted reference range: 4.20 - 10.70 10*3/?L. The reference range was not used to interpret this result as normal/abnormal. RBC (test code = 789-8) See_Comment L [Automated messa ge] The system which generated this result transmitted reference range: 4.26 - 5.52 10*6/?L. The reference range was not used to interpret this result as normal/abnormal. HGB (test code = 718-7) 7.4 g/dL 12.2-16.4 L HCT (test code = 4544-3) 21.6 % 38.4-49.3 L MCV (test code = 787-2) 85.7 fL 81.7-95.6 MCH (test code = 785-6) 29.4 pg 26.1-32.7 MCHC (test code = 786-4) 34.3 g/dL 31.2-35.0 RDW-SD (test code = 81862-6) 50.2 fL 38.5-51.6 RDW-CV (test code = 788-0) 16.0 % 12.1-15.4 H PLT (test code = 777-3) See_Comment LL [Automated DineGasma ge] The system which generated this result transmitted reference range: 150 - 328 10*3/?L. The reference range was not used to interpret this result as normal/abnormal. MPV (test code = 95107-2) Not Measured IPF % (test code = 0436643678) 1.5 % 1.2-10.7 The IPF value ma y not be reliable when the patient's platelet count is less than 10 x 10*3/uL due to the higher imprecision of the IPF at low counts. Platelet count measured by fluorescence method. NRBC/100 WBC (test code = 5313004472) See_Comment [Automated ASP64 ssage] The system which generated this result transmitted reference range: 0.0 - 10.0 /100 WBCs. The reference range was not used to interpret this result as normal/abnormal. NRBC x10^3 (test code = 7638307500) See_Comment [Automated DineGasma ge] The system which generated this result transmitted reference range: 10*3/?L. The reference range was not used to interpret this result as normal/abnormal. GRAN MAT (NEUT) % (test code = 770-8) 6.2 % IMM GRAN % (test code = 5123408502) 0.00 % LYMPH % (test code = 736-9) 71.9 % MONO % (test code = 5905-5) 18.8 % EOS % (test code = 713-8) 3.1 % BASO % (test code = 706-2) 0.0 % GRAN MAT x10^3(ANC) (test code = 8933822109) 1.99-6.95 L IMM GRAN x10^3 (test code = 7689271563) 0.00-0.06 LYMPH x10^3 (test code = 731-0) 0.23 10*3/uL 1.09-3.23 L MONO x10^3 (test code = 742-7) 0.06 10*3/uL 0.36-1.02 L EOS x10^3 (test code = 711-2) 0.06-0.53 L BASO x10^3 (test code = 704-7) 0.01-0.09 Lab Interpretation (test code = 05178-3) [facility] EGKHEKHBBZQFX2391-66-89 12:35:32* Test Item Value Reference Range Interpretation Comme [facility] LDH (test code = 2386376888) 176 U/L 120-246 Lab Interpretation (test cod e = 51602-1) Normal [facility] [id number] 12:35:32* Test Item Value Reference Range Interpretation Comme nts URIC ACID (test code = 7230953795) 3.3 mg/dL 3.6-8.0 L Lab Interpretation (test cod e = 80854-5) [facility]normal [facility] MET[facility]OLIC PAN[facility] (73150)2022-06-30 12:35:32* Test Item Value Reference Range Interpretation Comme [facility] NA (test code = 0203617484) 138 mmol/L 135-145 K (test code = 4760317716) 3.6 mmol/L 3.5-5.0 CL (test code = 8726471447) 103 mmol/L 98-108 CO2 TOTAL (test code = 1010510885) 27 mmol/L 23-31 AGAP (test code = 9259454350) 2-16 BUN (test code = 0192973225) 12 mg/dL 7-23 GLUCOSE (test code = 6861373788) 98 mg/dL 70-110 CREATININE (test code = 5872752059) 0.52 mg/dL 0.60-1.25 L TOTAL BILI (test code = 3004045341) 1.0 mg/dL 0.1-1.1 CALCIUM (test code = 1195595999) 8.1 mg/dL 8.6-10.6 L T PROTEIN (test code = 4690039552) 6.1 g/dL 6.3-8.2 L ALBUMIN (test code = 0364500765) 3.4 g/dL 3.5-5.0 L ALK PHOS (test code = 0225252065) 106 U/L 34-122 ALTv (test code = 1742-6) 106 U/L 5-50 H AST(SGOT) (test code = 5359003947) 76 U/L 13-40 H eGFR (test code = 8953712228) mL/min/1.73m2 MONTSERRAT (test code = MONTSERRAT) Association of Glomerular Filtration Rate (GFR) and Staging of Kidney Disease* + --+ --+ ------+| GFR (mL/min/1.73 m2) ?| With Kidney Damage ?| ?Without Kidney Damage+ --------+ --------+ +| ?>90 ?| ?Stage one ?| ? Normal ?+ ---+ ---+ -------+| ?60-89 ?| ?Stage two ?| ? Decreased GFR ? + --+ --+ ------+| ?30-59 ?| ?Stage three ?| ? Stage three ? + --+ --+ ------+| ?15-29 ?| ?Stage four ? | ? Stage four ?+ ---+ ---+ -------+| ?<15 (or dialysis) ? ?| ?Stage five ? | ? Stage five ?+ ---+ ---+ -------+ *Each stage assumes the associated GFR level has been in effect for at least three months. ?Stages 1 to 5, with or without kidney disease, indicate chronic kidney disease. Notes: Determination of stages one and two (with eGFR >59mL/min/1.73 m2) requires estimation of kidney damage for at least three months as defined by structural or functional abnormalities of the kidney, manifested by either:Pathological abnormalities or Markers of kidney damage (including abnormalities in the composition of the blood or urine or abnormalities in imaging tests). Lab Interpretation (test code = 82782-5) [facility]normal [facility] 12:35:32* Test Item Value Reference Range Interpretation Comme nts MAGNESIUM (test code = 4950192287) 1.8 mg/dL 1.7-2.4 Lab Interpretation (test cod e = 83176-2) Normal [facility] Packed RBC (in units), 1 Units 2022-06-29 15:49:44* Test Item Value Reference Range Interpretation Comme nts Cross Match Result (test code = 4409) Compatible ISBT Blood Type Code (test code = 882886) Unit Blood Type (test code = 4410) O Pos Unit Number (test code = 4411) [id number] Blood Expiration Date & Time (test code = 145099) Status Information (test code = 4412) Issued Product Identification (test code = 4413) Red Blood Cells Product Code (test code = 4414) [id number] Performed at [address] Free: [phone] No. [id number] [facility] Platelets (in units): 1 Units~Indication: 1) Platelets < 10,000 for bleeding prophylaxis; Special Requirements: Irradiated, Totkmvnxqyuk7008-40-94 14:27:59* Test Item Value Reference Range Interpretation Comme nts Unit Blood Type (test code = 4410) O Pos ISBT Blood Type Code (test code = 983589) Unit Number (test code = 4411) [id number] Blood Expiration Date & Time (test code = 285999) Status Information (test code = 4412) Issued Product Identification (test code = 4413) Platelets Product Code (test code = 4414) [id number] Performed at [address] Free: [phone] No. [id number] [facility] Platelets (in units): 1 Units~Indication: 1) Platelets < 10,000 for bleeding prophylaxis; Special Requirements: Leukoreduced, Uzizmigcmj3814-34-45 16:29:10* Test Item Value Reference Range Interpretation Comme nts Unit Blood Type (test code = 4410) O Pos ISBT Blood Type Code (test code = 761937) Unit Number (test code = 4411) [id number] Blood Expiration Date & Time (test code = 287301) Status Information (test code = 4412) Issued Product Identification (test code = 4413) Platelets Product Code (test code = 4414) [id number] Performed at [address] Free: [phone] No. [id number] [facility] IrvingHEPATIT[facility] C VIRUS JIWCQEPO9300-34-41 13:33:33 * Test Item Value Reference Range Interpretation Comme nts HCV GENOTYPING (test code = 25839-1) Type 3A MONTSERRAT (test code = MONTSERRAT) TEST INFORMATION:Isolates of hepatitis C virus are grouped into six genotypes: types 1, 2, 3, 4, 5, and 6. Reports suggest that patient prognosis and disease course may be genotype dependent. For example, hepatitis C virus type 1 and type 4 infections may be associated with more severe disease and decreased responsiveness to therapy, and types 2 and 3 may be treated with shorter durations of therapy. The test uses Line Probe Assay (LiPA 2.0), an Analyte Specific Reagent (ASR)from [employer]. Patient RNA is assayed using reverse audio visual engineer polymerase chain reaction (RT-PCR) to amplify a specific portion of the 5' untranslated region (5'UTR) and the core region of the hepatitis C virus. The amplified nucleic acid is detected by line probe hybridization for 6 HCV genotypes. This test was developed and its performance characteristic determined by [facility]. It has not been cleared or approved by the U.S. Food and Drug Administration (FDA). The FDA has determined that such clearance or approval is not necessary. This test is used for clinical purposes. It should not be regarded as investigational or for research. This laboratory is certified under the Clinical Laboratory Improvement amendmentsof 1988 (CLIA-88) as qualified to perform high complexity clinicallaboratory testing. [facility] Packed RBC (in units), 1 Units 2022-06-27 16:39:54* Test Item Value Reference Range Interpretation Comme nts Cross Match Result (test code = 4409) Compatible ISBT Blood Type Code (test code = 809518) Unit Blood Type (test code = 4410) O Pos Unit Number (test code = 4411) [id number] Blood Expiration Date & Time (test code = 652600) Status Information (test code = 4412) Issued Product Identification (test code = 4413) Red Blood Cells Product Code (test code = 4414) [id number] Performed at [facility] B Laboratory Services - [facility] Blood [address] [place] [address]Quwe Free: [phone] No. [id number] [facility] Platelets (in units): 1 Units~Indication: 1) Platelets < 10,000 for bleeding wqfqidszgoh0056-10-47 15:14:12* Test Item Value Reference Range Interpretation Comme nts Unit Blood Type (test code = 4410) A Pos ISBT Blood Type Code (test code = 675474) Unit Number (test code = 4411) [id number] Blood Expiration Date & Time (test code = 594125) Status Information (test code = 4412) Issued Product Identification (test code = 4413) Platelets Product Code (test code = 4414) [id number] Performed at [facility] Laboratory Services - [facility] Blood [address] Free: [phone] No. [id number] [facility] Irving[facility] and Screen - ONCE Fpklkon0050-38-49 14:08:40* Test Item Value Reference Range Interpretation Comme nts ABO & RH (test code = 20) O POSITIVE Performed at [facility] Laboratory Services - [address] Free: [phone] No. [id number] IAT (test code = 1185) Negative Performed at [facility] Laboratory Services - [address] Free: [phone] No. [id number] [facility] WITH [id number] 13:03:52* Test Item Value Reference Range Interpretation Comme nts WBC (test code = 6690-2) See_Comment LL [Automated messa ge] The system which generated this result transmitted reference range: 4.20 - 10.70 10*3/?L. The reference range was not used to interpret this result as normal/abnormal. RBC (test code = 789-8) See_Comment L [Automated messa ge] The system which generated this result transmitted reference range: 4.26 - 5.52 10*6/?L. The reference range was not used to interpret this result as normal/abnormal. HGB (test code = 718-7) 7.3 g/dL 12.2-16.4 L HCT (test code = 4544-3) 21.7 % 38.4-49.3 L MCV (test code = 787-2) 89.7 fL 81.7-95.6 MCH (test code = 785-6) 30.2 pg 26.1-32.7 MCHC (test code = 786-4) 33.6 g/dL 31.2-35.0 RDW-SD (test code = 11206-5) 52.5 fL 38.5-51.6 H RDW-CV (test code = 788-0) 16.0 % 12.1-15.4 H PLT (test code = 777-3) See_Comment LL [Automated DineGasma ge] The system which generated this result transmitted reference range: 150 - 328 10*3/?L. The reference range was not used to interpret this result as normal/abnormal. MPV (test code = 56888-5) Not Measured IPF % (test code = 1390883792) 0.5 % 1.2-10.7 L Platelet count measured by fluorescence method. NRBC/100 WBC (test code = 2173684494) See_Comment [Automated ASP64 ssage] The system which generated this result transmitted reference range: 0.0 - 10.0 /100 WBCs. The reference range was not used to interpret this result as normal/abnormal. NRBC x10^3 (test code = 7428555391) See_Comment [Automated DineGasma ge] The system which generated this result transmitted reference range: 10*3/?L. The reference range was not used to interpret this result as normal/abnormal. GRAN MAT (NEUT) % (test code = 770-8) 16.6 % IMM GRAN % (test code = 2738157670) 0.00 % LYMPH % (test code = 736-9) 66.7 % MONO % (test code = 5905-5) 16.7 % EOS % (test code = 713-8) 0.0 % BASO % (test code = 706-2) 0.0 % GRAN MAT x10^3(ANC) (test code = 6250714752) 1.99-6.95 L IMM GRAN x10^3 (test code = 7506915081) 0.00-0.06 LYMPH x10^3 (test code = 731-0) 0.04 10*3/uL 1.09-3.23 L MONO x10^3 (test code = 742-7) 0.36-1.02 L EOS x10^3 (test code = 711-2) 0.06-0.53 L BASO x10^3 (test code = 704-7) 0.01-0.09 Lab Interpretation (test code = 70710-9) Abnormal [facility] METABOLIC PANEL (NA, K, CL, CO2, GLUCOSE, BUN, CREATININE, CA)2022-06-26 12:39:28* Test Item Value Reference Range Interpretation Comme nts NA (test code = 9013710519) 135 mmol/L 135-145 K (test code = 2630329797) 3.8 mmol/L 3.5-5.0 CL (test code = 3005100312) 104 mmol/L 98-108 CO2 TOTAL (test code = 4604517812) 26 mmol/L 23-31 AGAP (test code = 0274116101) 2-16 BUN (test code = 2975340662) 10 mg/dL 7-23 GLUCOSE (test code = 1529230050) 109 mg/dL 70-110 CREATININE (test code = 3947768184) 0.49 mg/dL 0.60-1.25 L CALCIUM (test code = 2207921156) 7.9 mg/dL 8.6-10.6 L eGFR (test code = 1748736586) mL/min/1.73m2 MONTSERRAT (test code = MONTSERRAT) Association of Glomerular Filtration Rate (GFR) and Staging of Kidney Disease* + --+ --+ ------+| GFR (mL/min/1.73 m2) ?| With Kidney Damage ?| ?Without Kidney Damage+ --------+ --------+ +| ?>90 ?| ?Stage one ?| ? Normal ?+ ---+ ---+ -------+| ?60-89 ?| ?Stage two ?| ? Decreased GFR ? + --+ --+ ------+| ?30-59 ?| ?Stage three ?| ? Stage three ? + --+ --+ ------+| ?15-29 ?| ?Stage four ? | ? Stage four ?+ ---+ ---+ -------+| ?<15 (or dialysis) ? ?| ?Stage five ? | ? Stage five ?+ ---+ ---+ -------+ *Each stage assumes the associated GFR level has been in effect for at least three months. ?Stages 1 to 5, with or without kidney disease, indicate chronic kidney disease. Notes: Determination of stages one and two (with eGFR >59mL/min/1.73 m2) requires estimation of kidney damage for at least three months as defined by structural or functional abnormalities of the kidney, manifested by either:Pathological abnormalities or Markers of kidney damage (including abnormalities in the composition of the blood or urine or abnormalities in imaging tests). Lab Interpretation (test code = 45871-4) [facility]normal [facility] 12:39:28* Test Item Value Reference Range Interpretation Comme nts MAGNESIUM (test code = 1377273381) 1.7 mg/dL 1.7-2.4 Lab Interpretation (test cod e = 54617-2) Normal [facility] GCUO2523-60-89 12:39:28* Test Item Value Reference Range Interpretation Comme nts URIC ACID (test code = 5885366953) 2.8 mg/dL 3.6-8.0 L Lab Interpretation (test cod e = 91392-3) Abnormal [facility] Platelets (in units): 1 Units~Indication: 1) Platelets < 10,000 for bleeding prophylaxis; Special Requirements: Leukoreduced, Kfebvmwlim6620-17-05 21:18:47* Test Item Value Reference Range Interpretation Comme nts Unit Blood Type (test code = 4410) O Pos ISBT Blood Type Code (test code = 416416) Unit Number (test code = 4411) [id number] Blood Expiration Date & Time (test code = 771728) Status Information (test code = 4412) Issued Product Identification (test code = 4413) Platelets Product Code (test code = 4414) [id number] Performed at [facility] B Laboratory Services - [facility] Blood [address] [place] [address]Kodr Free: [phone] No. [id number] [facility] Packed RBC (in units), 1 Units 2022-06-25 15:34:46* Test Item Value Reference Range Interpretation Comme nts Cross Match Result (test code = 4409) Compatible ISBT Blood Type Code (test code = 389865) Unit Blood Type (test code = 4410) O Pos Unit Number (test code = 4411) [id number] Blood Expiration Date & Time (test code = 849548) Status Information (test code = 4412) Issued Product Identification (test code = 4413) Red Blood Cells Product Code (test code = 4414) [id number] Performed at [facility] Laboratory Services [facility] Blood [address] [address] Free: [phone] No. [id number] [facility] WITH [id number] 12:52:42* Test Item Value Reference Range Interpretation Comme nts WBC (test code = 6690-2) See_Comment LL [Automated messa ge] The system which generated this result transmitted reference range: 4.20 - 10.70 10*3/?L. The reference range was not used to interpret this result as normal/abnormal. RBC (test code = 789-8) See_Comment L [Automated messa ge] The system which generated this result transmitted reference range: 4.26 - 5.52 10*6/?L. The reference range was not used to interpret this result as normal/abnormal. HGB (test code = 718-7) 6.6 g/dL 12.2-16.4 L HCT (test code = 4544-3) 19.7 % 38.4-49.3 L MCV (test code = 787-2) 90.4 fL 81.7-95.6 MCH (test code = 785-6) 30.3 pg 26.1-32.7 MCHC (test code = 786-4) 33.5 g/dL 31.2-35.0 RDW-SD (test code = 45053-3) 53.7 fL 38.5-51.6 H RDW-CV (test code = 788-0) 16.6 % 12.1-15.4 H PLT (test code = 777-3) See_Comment LL [Automated messa ge] The system which generated this result transmitted reference range: 150 - 328 10*3/?L. The reference range was not used to interpret this result as normal/abnormal. MPV (test code = 69955-3) Not Measured IPF % (test code = 3555864010) 1.0 % 1.2-10.7 L Platelet count measured by fluorescence method. NRBC/100 WBC (test code = 1028046586) See_Comment [Automated me ssage] The system which generated this result transmitted reference range: 0.0 - 10.0 /100 WBCs. The reference range was not used to interpret this result as normal/abnormal. NRBC x10^3 (test code = 4317597752) See_Comment [Automated messa ge] The system which generated this result transmitted reference range: 10*3/?L. The reference range was not used to interpret this result as normal/abnormal. GRAN MAT (NEUT) % (test code = 770-8) 50.0 % IMM GRAN % (test code = 9353945350) 16.70 % LYMPH % (test code = 736-9) 33.3 % MONO % (test code = 5905-5) 0.0 % EOS % (test code = 713-8) 0.0 % BASO % (test code = 706-2) 0.0 % GRAN MAT x10^3(ANC) (test code = 6373659534) 0.03 10*3/uL 1.99-6.95 L IMM GRAN x10^3 (test code = 2210178348) 0.00-0.06 LYMPH x10^3 (test code = 731-0) 1.09-3.23 L MONO x10^3 (test code = 742-7) 0.36-1.02 L EOS x10^3 (test code = 711-2) 0.06-0.53 L BASO x10^3 (test code = 704-7) 0.01-0.09 Lab Interpretation (test code = 39205-2) Abnormal [facility] 12:44:29* Test Item Value Reference Range Interpretation Comme nts MAGNESIUM (test code = 2664998399) 1.7 mg/dL 1.7-2.4 Lab Interpretation (test cod e = 07112-5) Normal [facility] METABOLIC PANEL (74457)2022-06-25 12:44:29* Test Item Value Reference Range Interpretation Comme nts NA (test code = 8161331783) 140 mmol/L 135-145 K (test code = 2695379406) 3.3 mmol/L 3.5-5.0 L CL (test code = 2179186075) 108 mmol/L 98-108 CO2 TOTAL (test code = 0659777642) 26 mmol/L 23-31 AGAP (test code = 9078833630) 2-16 BUN (test code = 8105898114) 11 mg/dL 7-23 GLUCOSE (test code = 4622792485) 117 mg/dL 70-110 H CREATININE (test code = 4368517451) 0.47 mg/dL 0.60-1.25 L TOTAL BILI (test code = 4275601253) 1.1 mg/dL 0.1-1.1 CALCIUM (test code = 3438364336) 7.5 mg/dL 8.6-10.6 L T PROTEIN (test code = 8237035979) 5.7 g/dL 6.3-8.2 L ALBUMIN (test code = 9716721895) 3.1 g/dL 3.5-5.0 L ALK PHOS (test code = 1626333995) 102 U/L 34-122 ALTv (test code = 1742-6) 148 U/L 5-50 H AST(SGOT) (test code = 9801057928) 86 U/L 13-40 H eGFR (test code = 0940121888) mL/min/1.73m2 MONTSERRAT (test code = MONTSERRAT) Association of Glomerular Filtration Rate (GFR) and Staging of Kidney Disease* + --+ --+ ------+| GFR (mL/min/1.73 m2) ?| With Kidney Damage ?| ?Without Kidney Damage+ --------+ --------+ +| ?>90 ?| ?Stage one ?| ? Normal ?+ ---+ ---+ -------+| ?60-89 ?| ?Stage two ?| ? Decreased GFR ? + --+ --+ ------+| ?30-59 ?| ?Stage three ?| ? Stage three ? + --+ --+ ------+| ?15-29 ?| ?Stage four ? | ? Stage four ?+ ---+ ---+ -------+| ?<15 (or dialysis) ? ?| ?Stage five ? | ? Stage five ?+ ---+ ---+ -------+ *Each stage assumes the associated GFR level has been in effect for at least three months. ?Stages 1 to 5, with or without kidney disease, indicate chronic kidney disease. Notes: Determination of stages one and two (with eGFR >59mL/min/1.73 m2) requires estimation of kidney damage for at least three months as defined by structural or functional abnormalities of the kidney, manifested by either:Pathological abnormalities or Markers of kidney damage (including abnormalities in the composition of the blood or urine or abnormalities in imaging tests). Lab Interpretation (test code = 00451-8) [facility]normal [facility] JCZK1198-46-76 12:44:29* Test Item Value Reference Range Interpretation Comme [facility] URIC ACID (test code = 8805736372) 3.3 mg/dL 3.6-8.0 L Lab Interpretation (test cod e = 51960-8) Abnormal [facility] TOOILZBNVWNXC9766-01-60 12:44:29* Test Item Value Reference Range Interpretation Comme nts LDH (test code = 8992548880) 199 U/L 120-246 Lab Interpretation (test cod e = 09354-8) Normal [facility] WITH ZBTT7091-05-75 13:21:15* Test Item Value Reference Range Interpretation Comme nts WBC (test code = 6690-2) See_Comment LL [Automated [employer]asma [employer]] The system which generated this result transmitted reference range: 4.20 - 10.70 10*3/?L. The reference range was not used to interpret this result as normal/abnormal. RBC (test code = 789-8) See_Comment L [Automated [employer]] The system which generated this result transmitted reference range: 4.26 - 5.52 10*6/?L. The reference range was not used to interpret this result as normal/abnormal. HGB (test code = 718-7) 7.0 g/dL 12.2-16.4 L HCT (test code = 4544-3) 21.1 % 38.4-49.3 L MCV (test code = 787-2) 91.3 fL 81.7-95.6 MCH (test code = 785-6) 30.3 pg 26.1-32.7 MCHC (test code = 786-4) 33.2 g/dL 31.2-35.0 RDW-SD (test code = 92136-0) 55.7 fL 38.5-51.6 H RDW-CV (test code = 788-0) 16.9 % 12.1-15.4 H PLT (test code = 777-3) See_Comment LL [Automated DineGasma ge] The system which generated this result transmitted reference range: 150 - 328 10*3/?L. The reference range was not used to interpret this result as normal/abnormal. MPV (test code = 21938-2) 12.0 fL 9.8-13.0 IPF % (test code = 9167512809) 1.1 % 1.2-10.7 L Platelet count measured by fluorescence method. NRBC/100 WBC (test code = 5058412235) See_Comment [Automated ASP64 ssage] The system which generated this result transmitted reference range: 0.0 - 10.0 /100 WBCs. The reference range was not used to interpret this result as normal/abnormal. NRBC x10^3 (test code = 0306000979) See_Comment [Automated DineGasma ge] The system which generated this result transmitted reference range: 10*3/?L. The reference range was not used to interpret this result as normal/abnormal. GRAN MAT (NEUT) % (test code = 770-8) 85.7 % IMM GRAN % (test code = 2417260110) 11.10 % LYMPH % (test code = 736-9) 3.2 % MONO % (test code = 5905-5) 0.0 % EOS % (test code = 713-8) 0.0 % BASO % (test code = 706-2) 0.0 % GRAN MAT x10^3(ANC) (test code = 9403414959) 0.54 10*3/uL 1.99-6.95 L IMM GRAN x10^3 (test code = 1688853419) 0.07 10*3/uL 0.00-0.06 H LYMPH x10^3 (test code = 731-0) 1.09-3.23 L MONO x10^3 (test code = 742-7) 0.36-1.02 L EOS x10^3 (test code = 711-2) 0.06-0.53 L BASO x10^3 (test code = 704-7) 0.01-0.09 HYPERSEG NEUTS (test code = 765-8) Present See_Comment A [Automated messa ge] The system which generated this result transmitted reference range: (none). The reference range was not used to interpret this result as normal/abnormal. Lab Interpretation (test code = 60678-8) [facility] [id number] 13:10:13* Test Item Value Reference Range Interpretation Comme nts URIC ACID (test code = 2713166433) 3.5 mg/dL 3.6-8.0 L Lab Interpretation (test cod e = 53405-2) Abnormal [facility]. METABOLIC PANEL (52087)2022-06-24 13:10:13* Test Item Value Reference Range Interpretation Comme nts NA (test code = 4464112752) 139 mmol/L 135-145 K (test code = 8177257852) 3.5 mmol/L 3.5-5.0 CL (test code = 1156527225) 110 mmol/L 98-108 H CO2 TOTAL (test code = 4468839812) 26 mmol/L 23-31 AGAP (test code = 2309345523) 2-16 BUN (test code = 3581702234) 11 mg/dL 7-23 GLUCOSE (test code = 4746954791) 118 mg/dL 70-110 H CREATININE (test code = 4081427739) 0.49 mg/dL 0.60-1.25 L TOTAL BILI (test code = 7938695872) 1.7 mg/dL 0.1-1.1 H CALCIUM (test code = 7783997062) 8.0 mg/dL 8.6-10.6 L T PROTEIN (test code = 4454312461) 5.8 g/dL 6.3-8.2 L ALBUMIN (test code = 2431113347) 3.1 g/dL 3.5-5.0 L ALK PHOS (test code = 8482605606) 87 U/L 34-122 ALTv (test code = 1742-6) 201 U/L 5-50 H AST(SGOT) (test code = 5872880520) 169 U/L 13-40 H eGFR (test code = 4987992219) mL/min/1.73m2 MONTSERRAT (test code = MONTSERRAT) Association of Glomerular Filtration Rate (GFR) and Staging of Kidney Disease* + --+ --+ ------+| GFR (mL/min/1.73 m2) ?| With Kidney Damage ?| ?Without Kidney Damage+ --------+ --------+ +| ?>90 ?| ?Stage one ?| ? Normal ?+ ---+ ---+ -------+| ?60-89 ?| ?Stage two ?| ? Decreased GFR ? + --+ --+ ------+| ?30-59 ?| ?Stage three ?| ? Stage three ? + --+ --+ ------+| ?15-29 ?| ?Stage four ? | ? Stage four ?+ ---+ ---+ -------+| ?<15 (or dialysis) ? ?| ?Stage five ? | ? Stage five ?+ ---+ ---+ -------+ *Each stage assumes the associated GFR level has been in effect for at least three months. ?Stages 1 to 5, with or without kidney disease, indicate chronic kidney disease. Notes: Determination of stages one and two (with eGFR >59mL/min/1.73 m2) requires estimation of kidney damage for at least three months as defined by structural or functional abnormalities of the kidney, manifested by either:Pathological abnormalities or Markers of kidney damage (including abnormalities in the composition of the blood or urine or abnormalities in imaging tests). Lab Interpretation (test code = 87248-1) [facility] 00:53:49* Test Item Value Reference Range Interpretation Comme nts PHOSPHORUS (test code = 6489844038) 3.5 mg/dL 2.5-5.0 Lab Interpretation (test cod e = 32162-7) Normal [facility] IrvingVancomycin Trough Level - Draw within 30 minutes prior to next dose (06/23/22 PM)2022-06-24 00:05:28* Test Item Value Reference Range Interpretation Comme nts VANCO TROUGH (test code = 2853825812) 9.2 ug/mL 10.0-20.0 L MONTSERRAT (test code = MONTSERRAT) Toxic Range: ?>20 ug/mL 15-20 ug/mL is recommended for severe infection or when Vancomycin ASHER is greater than or equal to 2. Lab Interpretation (test code = 50006-7) [facility] / HEMO[facility] - 30 minutes after transfusion of each [id number] 23:00:55* Test Item Value Reference Range Interpretation Comme nts WBC (test code = 6690-2) See_Comment LL [Automated DineGasma ge] The system which generated this result transmitted reference range: 4.20 - 10.70 10*3/?L. The reference range was not used to interpret this result as normal/abnormal. RBC (test code = 789-8) See_Comment L [Automated message] The system which generated this result transmitted reference range: 4.26 - 5.52 10*6/?L. The reference range was not used to interpret this result as normal/abnormal. HGB (test code = 718-7) 7.6 g/dL 12.2-16.4 L HCT (test code = 4544-3) 23.5 % 38.4-49.3 L MCH (test code = 785-6) 29.9 pg 26.1-32.7 MCV (test code = 787-2) 92.5 fL 81.7-95.6 MCHC (test code = 786-4) 32.3 g/dL 31.2-35.0 PLT (test code = 777-3) See_Comment LL [Automated message] The system which generated this result transmitted reference range: 150 - 328 10*3/?L. The reference range was not used to interpret this result as normal/abnormal. MPV (test code = 55181-8) 12.4 fL 9.8-13.0 RDW-CV (test code = 788-0) 16.6 % 12.1-15.4 H RDW-SD (test code = 34945-9) 53.7 fL 38.5-51.6 H NRBC x10^3 (test code = 1718615142) See_Comment [Automated messa ge] The system which generated this result transmitted reference range: 10*3/?L. The reference range was not used to interpret this result as normal/abnormal. NRBC/100 WBC (test code = 8225602994) See_Comment [Automated messa ge] The system which generated this result transmitted reference range: 0.0 - 10.0 /100 WBCs. The reference range was not used to interpret this result as normal/abnormal. IPF % (test code = 3949173792) 0.9 % 1.2-10.7 L Platelet count measured by fluorescence method. Lab Interpretation (test code = 66441-7) Abnormal [facility] IrvingPrepare Packed RBC (in units), 1 Units 2022-06-23 16:14:44* Test Item Value Reference Range Interpretation Comme nts Cross Match Result (test code = 4409) Compatible ISBT Blood Type Code (test code = 108278) Unit Blood Type (test code = 4410) O Pos Unit Number (test code = 4411) [id number] Blood Expiration Date & Time (test code = 888378) Status Information (test code = 4412) Issued Product Identification (test code = 4413) Red Blood Cells Product Code (test code = 4414) [id number] Performed at [facility] Laboratory Services - [facility] Blood [address] Free: [phone] No. [id number] [facility] IrvingType and Screen - ONCE [id number] 15:36:31 * Test Item Value Reference Range Interpretation Comme nts ABO & RH (test code = 20) O POSITIVE Performed at [facility] Laboratory Services - [facility] Blood [address] Free: [phone] No. [id number] IAT (test code = 1185) Negative Performed at [facility] Laboratory Services - [facility] Blood [address] Free: [phone] No. [id number] [facility] IrvingCBC WITH [id number] 13:14:48* Test Item Value Reference Range Interpretation Comme nts WBC (test code = 6690-2) See_Comment LL [Automated messa ge] The system which generated this result transmitted reference range: 4.20 - 10.70 10*3/?L. The reference range was not used to interpret this result as normal/abnormal. RBC (test code = 789-8) See_Comment L [Automated DineGasma ge] The system which generated this result transmitted reference range: 4.26 - 5.52 10*6/?L. The reference range was not used to interpret this result as normal/abnormal. HGB (test code = 718-7) 6.7 g/dL 12.2-16.4 L HCT (test code = 4544-3) 20.8 % 38.4-49.3 L MCV (test code = 787-2) 92.9 fL 81.7-95.6 MCH (test code = 785-6) 29.9 pg 26.1-32.7 MCHC (test code = 786-4) 32.2 g/dL 31.2-35.0 RDW-SD (test code = 52138-0) 58.0 fL 38.5-51.6 H RDW-CV (test code = 788-0) 17.6 % 12.1-15.4 H PLT (test code = 777-3) See_Comment LL [Automated DineGasma ge] The system which generated this result transmitted reference range: 150 - 328 10*3/?L. The reference range was not used to interpret this result as normal/abnormal. MPV (test code = 04578-2) 12.1 fL 9.8-13.0 IPF % (test code = 7658266122) 1.1 % 1.2-10.7 L Platelet count measured by fluorescence method. NRBC/100 WBC (test code = 6427955748) See_Comment [Automated ASP64 ssage] The system which generated this result transmitted reference range: 0.0 - 10.0 /100 WBCs. The reference range was not used to interpret this result as normal/abnormal. NRBC x10^3 (test code = 9940907703) See_Comment [Automated DineGasma ge] The system which generated this result transmitted reference range: 10*3/?L. The reference range was not used to interpret this result as normal/abnormal. GRAN MAT (NEUT) % (test code = 770-8) 84.3 % IMM GRAN % (test code = 5221893354) 13.30 % LYMPH % (test code = 736-9) 1.8 % MONO % (test code = 5905-5) 0.0 % EOS % (test code = 713-8) 0.6 % BASO % (test code = 706-2) 0.0 % GRAN MAT x10^3(ANC) (test code = 9791451952) 1.39 10*3/uL 1.99-6.95 L IMM GRAN x10^3 (test code = 6193542426) 0.22 10*3/uL 0.00-0.06 H LYMPH x10^3 (test code = 731-0) 0.03 10*3/uL 1.09-3.23 L MONO x10^3 (test code = 742-7) 0.36-1.02 L EOS x10^3 (test code = 711-2) 0.06-0.53 L BASO x10^3 (test code = 704-7) 0.01-0.09 Lab Interpretation (test code = 95257-6) Abnormal [facility] IrvingCOMP. METABOLIC PANEL (82262)2022-06-23 12:55:55* Test Item Value Reference Range Interpretation Comme nts NA (test code = 0092285904) 139 mmol/L 135-145 K (test code = 3403331156) 3.6 mmol/L 3.5-5.0 CL (test code = 0433188867) 109 mmol/L 98-108 H CO2 TOTAL (test code = 0047627279) 24 mmol/L 23-31 AGAP (test code = 5760993471) 2-16 BUN (test code = 8727768387) 12 mg/dL 7-23 GLUCOSE (test code = 2202855825) 103 mg/dL 70-110 CREATININE (test code = 9644145715) 0.52 mg/dL 0.60-1.25 L TOTAL BILI (test code = 8535881226) 1.2 mg/dL 0.1-1.1 H CALCIUM (test code = 7635222986) 8.0 mg/dL 8.6-10.6 L T PROTEIN (test code = 9714145066) 5.8 g/dL 6.3-8.2 L ALBUMIN (test code = 2324969456) 3.2 g/dL 3.5-5.0 L ALK PHOS (test code = 6713666170) 89 U/L 34-122 ALTv (test code = 1742-6) 194 U/L 5-50 H AST(SGOT) (test code = 4352717236) 199 U/L 13-40 H eGFR (test code = 1778449921) mL/min/1.73m2 MONTSERRAT (test code = MONTSERRAT) Association of Glomerular Filtration Rate (GFR) and Staging of Kidney Disease* + --+ --+ ------+| GFR (mL/min/1.73 m2) ?| With Kidney Damage ?| ?Without Kidney Damage+ --------+ --------+ +| ?>90 ?| ?Stage one ?| ? Normal ?+ ---+ ---+ -------+| ?60-89 ?| ?Stage two ?| ? Decreased GFR ? + --+ --+ ------+| ?30-59 ?| ?Stage three ?| ? Stage three ? + --+ --+ ------+| ?15-29 ?| ?Stage four ? | ? Stage four ?+ ---+ ---+ -------+| ?<15 (or dialysis) ? ?| ?Stage five ? | ? Stage five ?+ ---+ ---+ -------+ *Each stage assumes the associated GFR level has been in effect for at least three months. ?Stages 1 to 5, with or without kidney disease, indicate chronic kidney disease. Notes: Determination of stages one and two (with eGFR >59mL/min/1.73 m2) requires estimation of kidney damage for at least three months as defined by structural or functional abnormalities of the kidney, manifested by either:Pathological abnormalities or Markers of kidney damage (including abnormalities in the composition of the blood or urine or abnormalities in imaging tests). Lab Interpretation (test code = 53544-3) Abnormal [facility] [id number] 12:55:55* Test Item Value Reference Range Interpretation Comme nts URIC ACID (test code = 6431850195) 3.9 mg/dL 3.6-8.0 Lab Interpretation (test cod e = 45440-0) Normal [facility] IrvingMisc. Sendout- [id number] 14:12:07* Test Item Value Reference Range Interpretation Comme nts Miscellaneous Test (test code = 1614423812) See scanned report Performing Lab (test code = 7220636241) [facility] This is a corrected result. Previous result was Med fusion on 06/18/2022 at 2338 DIRECTOR OF INFECTION PREVENTION [facility] WITH [id number] 13:00:20* Test Item Value Reference Range Interpretation Comme nts WBC (test code = 6690-2) See_Comment LL [Automated messa ge] The system which generated this result transmitted reference range: 4.20 - 10.70 10*3/?L. The reference range was not used to interpret this result as normal/abnormal. RBC (test code = 789-8) See_Comment L [Automated messa ge] The system which generated this result transmitted reference range: 4.26 - 5.52 10*6/?L. The reference range was not used to interpret this result as normal/abnormal. HGB (test code = 718-7) 7.5 g/dL 12.2-16.4 L HCT (test code = 4544-3) 22.7 % 38.4-49.3 L MCV (test code = 787-2) 92.3 fL 81.7-95.6 MCH (test code = 785-6) 30.5 pg 26.1-32.7 MCHC (test code = 786-4) 33.0 g/dL 31.2-35.0 RDW-SD (test code = 18115-9) 57.7 fL 38.5-51.6 H RDW-CV (test code = 788-0) 17.5 % 12.1-15.4 H PLT (test code = 777-3) See_Comment L [Automated messa ge] The system which generated this result transmitted reference range: 150 - 328 10*3/?L. The reference range was not used to interpret this result as normal/abnormal. MPV (test code = 54040-5) 10.5 fL 9.8-13.0 IPF % (test code = 5192507757) 0.9 % 1.2-10.7 L Platelet count measured by fluorescence method. NRBC/100 WBC (test code = 9595329800) See_Comment [Automated me ssage] The system which generated this result transmitted reference range: 0.0 - 10.0 /100 WBCs. The reference range was not used to interpret this result as normal/abnormal. NRBC x10^3 (test code = 2751524434) See_Comment [Automated messa ge] The system which generated this result transmitted reference range: 10*3/?L. The reference range was not used to interpret this result as normal/abnormal. GRAN MAT (NEUT) % (test code = 770-8) 91.0 % IMM GRAN % (test code = 0653714673) 1.30 % LYMPH % (test code = 736-9) 3.8 % MONO % (test code = 5905-5) 0.0 % EOS % (test code = 713-8) 2.6 % BASO % (test code = 706-2) 1.3 % GRAN MAT x10^3(ANC) (test code = 5839119813) 0.71 10*3/uL 1.99-6.95 L IMM GRAN x10^3 (test code = 1229228742) 0.00-0.06 LYMPH x10^3 (test code = 731-0) 0.03 10*3/uL 1.09-3.23 L MONO x10^3 (test code = 742-7) 0.36-1.02 L EOS x10^3 (test code = 711-2) 0.06-0.53 L BASO x10^3 (test code = 704-7) 0.01-0.09 Lab Interpretation (test code = 92790-5) Abnormal [facility]. METABOLIC PANEL (87132)2022-06-22 12:44:53* Test Item Value Reference Range Interpretation Comme nts NA (test code = 9447499274) 139 mmol/L 135-145 K (test code = 7639397351) 4.1 mmol/L 3.5-5.0 CL (test code = 3869918343) 108 mmol/L 98-108 CO2 TOTAL (test code = 3907125482) 25 mmol/L 23-31 AGAP (test code = 5803650492) 2-16 BUN (test code = 3654153825) 11 mg/dL 7-23 GLUCOSE (test code = 6516905279) 92 mg/dL 70-110 CREATININE (test code = 7661468697) 0.60 mg/dL 0.60-1.25 TOTAL BILI (test code = 0797554140) 1.2 mg/dL 0.1-1.1 H CALCIUM (test code = 8270570095) 7.8 mg/dL 8.6-10.6 L T PROTEIN (test code = 2043282569) 6.4 g/dL 6.3-8.2 ALBUMIN (test code = 3975040591) 3.4 g/dL 3.5-5.0 L ALK PHOS (test code = 7376775443) 83 U/L 34-122 ALTv (test code = 1742-6) 170 U/L 5-50 H AST(SGOT) (test code = 0093156065) 156 U/L 13-40 H eGFR (test code = 2555523965) mL/min/1.73m2 MONTSERRAT (test code = MONTSERRAT) Association of Glomerular Filtration Rate (GFR) and Staging of Kidney Disease* + --+ --+ ------+| GFR (mL/min/1.73 m2) ?| With Kidney Damage ?| ?Without Kidney Damage+ --------+ --------+ +| ?>90 ?| ?Stage one ?| ? Normal ?+ ---+ ---+ -------+| ?60-89 ?| ?Stage two ?| ? Decreased GFR ? + --+ --+ ------+| ?30-59 ?| ?Stage three ?| ? Stage three ? + --+ --+ ------+| ?15-29 ?| ?Stage four ? | ? Stage four ?+ ---+ ---+ -------+| ?<15 (or dialysis) ? ?| ?Stage five ? | ? Stage five ?+ ---+ ---+ -------+ *Each stage assumes the associated GFR level has been in effect for at least three months. ?Stages 1 to 5, with or without kidney disease, indicate chronic kidney disease. Notes: Determination of stages one and two (with eGFR >59mL/min/1.73 m2) requires estimation of kidney damage for at least three months as defined by structural or functional abnormalities of the kidney, manifested by either:Pathological abnormalities or Markers of kidney damage (including abnormalities in the composition of the blood or urine or abnormalities in imaging tests). Lab Interpretation (test code = 09118-8) Abnormal [facility] IrvingLACTATE [id number] 12:44:53* Test Item Value Reference Range Interpretation Comme nts LDH (test code = 3815159069) 402 U/L 120-246 H Lab Interpretation (test cod e = 55174-0) Abnormal [facility] [id number] 12:44:53* Test Item Value Reference Range Interpretation Comme nts URIC ACID (test code = 0024087640) 4.4 mg/dL 3.6-8.0 Lab Interpretation (test cod e = 93168-5) Normal [facility] IrvingURINE [id number] 14:01:09* Test Item Value Reference Range Interpretation Comme nts URINE CULTURE (test code = 630-4) No aerobic growth (< 1000 CFU/mL) [facility] IrvingCB WITH [id number] 13:23:33* Test Item Value Reference Range Interpretation Comme nts WBC (test code = 6690-2) See_Comment LL [Automated DineGasma ge] The system which generated this result transmitted reference range: 4.20 - 10.70 10*3/?L. The reference range was not used to interpret this result as normal/abnormal. RBC (test code = 789-8) See_Comment L [Automated DineGasma ge] The system which generated this result transmitted reference range: 4.26 - 5.52 10*6/?L. The reference range was not used to interpret this result as normal/abnormal. HGB (test code = 718-7) 7.2 g/dL 12.2-16.4 L HCT (test code = 4544-3) 21.8 % 38.4-49.3 L MCV (test code = 787-2) 91.6 fL 81.7-95.6 MCH (test code = 785-6) 30.3 pg 26.1-32.7 MCHC (test code = 786-4) 33.0 g/dL 31.2-35.0 RDW-SD (test code = 48647-2) 58.6 fL 38.5-51.6 H RDW-CV (test code = 788-0) 18.1 % 12.1-15.4 H PLT (test code = 777-3) See_Comment L [Automated DineGasma ge] The system which generated this result transmitted reference range: 150 - 328 10*3/?L. The reference range was not used to interpret this result as normal/abnormal. MPV (test code = 91207-2) 10.7 fL 9.8-13.0 IPF % (test code = 8056581806) 1.2 % 1.2-10.7 Platelet count measured by fluorescence method. NRBC/100 WBC (test code = 3764978898) See_Comment [Automated ASP64 ssage] The system which generated this result transmitted reference range: 0.0 - 10.0 /100 WBCs. The reference range was not used to interpret this result as normal/abnormal. NRBC x10^3 (test code = 6457418489) See_Comment [Automated DineGasma ge] The system which generated this result transmitted reference range: 10*3/?L. The reference range was not used to interpret this result as normal/abnormal. GRAN MAT (NEUT) % (test code = 770-8) 95.2 % IMM GRAN % (test code = 5462167993) 1.60 % LYMPH % (test code = 736-9) 1.6 % MONO % (test code = 5905-5) 0.0 % EOS % (test code = 713-8) 0.8 % BASO % (test code = 706-2) 0.8 % GRAN MAT x10^3(ANC) (test code = 3254477415) 1.16 10*3/uL 1.99-6.95 L IMM GRAN x10^3 (test code = 5082137195) 0.00-0.06 LYMPH x10^3 (test code = 731-0) 1.09-3.23 L MONO x10^3 (test code = 742-7) 0.36-1.02 L EOS x10^3 (test code = 711-2) 0.06-0.53 L BASO x10^3 (test code = 704-7) 0.01-0.09 Lab Interpretation (test code = 92499-2) Abnormal [facility]. METABOLIC PANEL (50669)2022-06-21 12:42:13* Test Item Value Reference Range Interpretation Comme nts NA (test code = 1701687520) 134 mmol/L 135-145 L K (test code = 5475663562) 3.7 mmol/L 3.5-5.0 CL (test code = 8491568309) 105 mmol/L 98-108 CO2 TOTAL (test code = 1882649455) 24 mmol/L 23-31 AGAP (test code = 6883926298) 2-16 BUN (test code = 9752703451) 10 mg/dL 7-23 GLUCOSE (test code = 1839263058) 99 mg/dL 70-110 CREATININE (test code = 2521226273) 0.58 mg/dL 0.60-1.25 L TOTAL BILI (test code = 6041444130) 1.9 mg/dL 0.1-1.1 H CALCIUM (test code = 4426210037) 7.3 mg/dL 8.6-10.6 L T PROTEIN (test code = 6231961467) 5.8 g/dL 6.3-8.2 L ALBUMIN (test code = 7926362562) 3.0 g/dL 3.5-5.0 L ALK PHOS (test code = 8253832610) 67 U/L 34-122 ALTv (test code = 1742-6) 160 U/L 5-50 H AST(SGOT) (test code = 1870559199) 131 U/L 13-40 H eGFR (test code = 1850590100) mL/min/1.73m2 MONTSERRAT (test code = MONTSERRAT) Association of Glomerular Filtration Rate (GFR) and Staging of Kidney Disease* + --+ --+ ------+| GFR (mL/min/1.73 m2) ?| With Kidney Damage ?| ?Without Kidney Damage+ --------+ --------+ +| ?>90 ?| ?Stage one ?| ? Normal ?+ ---+ ---+ -------+| ?60-89 ?| ?Stage two ?| ? Decreased GFR ? + --+ --+ ------+| ?30-59 ?| ?Stage three ?| ? Stage three ? + --+ --+ ------+| ?15-29 ?| ?Stage four ? | ? Stage four ?+ ---+ ---+ -------+| ?<15 (or dialysis) ? ?| ?Stage five ? | ? Stage five ?+ ---+ ---+ -------+ *Each stage assumes the associated GFR level has been in effect for at least three months. ?Stages 1 to 5, with or without kidney disease, indicate chronic kidney disease. Notes: Determination of stages one and two (with eGFR >59mL/min/1.73 m2) requires estimation of kidney damage for at least three months as defined by structural or functional abnormalities of the kidney, manifested by either:Pathological abnormalities or Markers of kidney damage (including abnormalities in the composition of the blood or urine or abnormalities in imaging tests). Lab Interpretation (test code = 91944-7) [facility] Irving[facility] [id number] 12:42:13* Test Item Value Reference Range Interpretation Comme [facility] URIC ACID (test code = 1752221171) 4.3 mg/dL 3.6-8.0 Lab Interpretation (test cod e = 85391-1) Normal [facility] IrvingMETHOTREXATE2022-12-29 04:10:54 METHOTREX<0.050umol/L108/21/2021 10:10 PM [facility] LABORATORY SERVICESTHERAPEUTIC RANGE = VARIABLE(DEPENDS ON TREATMENT PROTOCOL)TOXIC RANGE = GREATER THAN 10.00 UMOL/L @ 24 HRS ?GREATER THAN ?1.00 UMOL/L @ 48 HRS ?GREATER THAN ?0.10 UMOL/L @ 72 HRS Test developed and characteristics determined by [facility] IrvingCYTO SPINAL [id number] 17:35:04* Test Item Value Reference Range Interpretation Comme [facility] Case Report (test code = 1504902764) Non-Gynecologic Cytology ?Case: [id number] ?Authorizing Provider: ?Frandy Umana MD ? ? ? Collected: ? 06/19/2022 1507 ?Ordering Location: ? ? Transplant/Gynecology /Onco Received: ?06/20/2022 0825 ? logy (JAKY 9D) ?Pathologist: ? Sosa, Cindy Peters, MD ? Specimen: ? ?CEREBRAL SPINAL FLUID ? Final Diagnosis (test code = 5427918173) d9irtEOiSLSru7pjFDNof GFuZzEwMzNcZnRuYmpcdW MxIHtccnRmMVxlcGljMTA hUKMyWD9rxDixaTg3hUlw OQAqavR3tFPmMEcjh0ebO DJ0n0juubdgNDJfZMrzAc 9udHRibHtcZjAgQXJpYWw 4iH46WACgpU4jbDYfHQw3 XHBhcGVydzEyMjQwXHBhc JClmLS0IMRpWF7mnlblQE czCPyjDBDitfG6SQEjwOO oD3MpFBWtPN7ekfliXLG1 GMewDXYhHLU0UhNjBCLpl 8Hasit9LsYqgKPgRFcafR FpblxmczIwXHBhclxiXGZ cMhVoQQ8nT5FFANWQU9BW RM1BFNFMZOXSJMdtuLVgD YUcGxVdHL9OI0YTDJSIWR IFQnYVLZbDZ48QMlJvM2E ZJTLdLsSdHEcNNBFmX31Z TRTBZGqqkSSzYJFhrd26J LD2JgOgd8A0OPMqUbIbPZ XtHA2ofZzaDKCjUV7cUBR iF1oppK8qytc9IrMzKNTv SnF3OFVwoqJ8Ngn6KYFzO Rxyy0sqn3DrL1MjeWCceT f2w6zyIYAeOjQ4dEQcKHo oE3ebcdBscJYdNGEiOCt1 jMewDuXwNGIqo1yvjpEzH mNoYXJzZXQwIENhbGlicm i1mP81NPZkrH2nlFHzAVk gjvEvYxU5IZonVAAiXnG0 YYTiwYYdRTVpL4ibPPWzZ PntPJBgFGcefKKqCCU7uE dsv7H6pHTeaLCtuLfoTpO gZuNgXXTZi3NtXIw5xNne X1IaPVTpXpN8tMZwGBCkZ NomFXGfGHBhaaN0kE52JK rktwO0nDOwy0Lqz62lf13 0lS4wtYWcJRC2IAGeVKYg aFOlTRFlYFS0LFKkdNFqB 6fpQSQtJK4knajhLSrrKP zlFWCowUK7FWBhxCFuM4K mWTKzNZptWLIqbzi3TqEr La8nqVKrmSggOQhfj6yhe 1mpjOOmExx4VDPiWkZbVu kgGUczw1Guh1rrSDQdrr9 fCUS3pPXfxPzqv3B4mUXp DWSlkXCygeNuXRMnDzV7S OexIH2xmn78YRSeXJM2ta 5ybGNccGdicmRyaGVhZFx gF4TpPWNnd196QZJxH4Kq KYEue9B3xuMpBxDxDLDzx QA7daK8IQRiNQo2vGIbuy T7rySbjGMvU5shfR7tRMS sZC6gzzegj1uzVNeoSLrn TFVqbKR5hkW4FHLsxOJpP 8LtdW4uJWBaJXhoGMIrmh s6PbSrPs8yhHRdtItzWCh zYmtwYWdlXHBnbmNvbnRc cGduZGVjXHBsYWluXHBsY WluXGYwXGZzMjRccWxccG dlsD3iFcIrXkTtWIctCX9 cZWZnL4thnSEeKQXlKXTm B8meMiRtrX3tvDsoYPhwH jJcZnMyMFxwYXIgSSBoYX ZlIHBlcnNvbmFsbHkgcmV 3jYZ0POKrRIbmHQEcZFZp gMLdpd5adLczEDUlCF3hH GFncmVlIHdpdGggYWxsIH C2RGCueHHntGGfyZPdLZN ieSByZXNpZGVudHMsIGZl bAxqn8Wxr7XupXB8iV5vl 6otk2XvYTGbvUU4ZM85mz L0nZ2iUKYxVV7aDOBjQZ3 inVJbkOToCNFve57xnCpp cyByZXBvcnQuXHBsYWluX GYyXGZzMjhcbGFuZzEwMz NcaGljaFxmMlxkYmNoXGY lQOalB2pgFwOtWkInGEzr YXJ9fQ== Final Diagnosis Comment (test code = 2227912859) l4gpuRLwYHEarPGxAQBsH ImthbGvUFHqgIXgU8Kyqc viWJrgNR5pZP8lmYxykBW tyNOdEXIzElWhi3tzj616 mAPqg1isPVAKebgwpZh4l OdeK45ay6K3WsooL26vmV JvKSM5OSEqYYDhfVNhGSZ jTQH5EJIhzRQuU5vpQOMy OM6belwsYAwlWDzdDBSie OR9RYZeqMXrI7SvOEFjYZ luKUFquuz0VzCnXq2enDG yeTcyMFxwYXJkXHBsYWlu ZIPcIlCdV32sERUaCSXjy 4zcSQVnNO4qaxO3BXHaM7 YxtYKbp29lnD1eHo1nfYX ajRroOO54FXNbsKygHYtr SC91nJYbDAEaVJshXNB8 Clinical Information (test code = 0459950611) Burkitt's lymphoma Gross Description (test code = 8512792604) v4braIIcAFDlhTSmOETaH CmcxdMnIEVhaWHcX4Uibt buAOryEU3oTR6lgYrzqED lxAOvIYHgPtOtt2biq080 yXKxy8tfJCQBklgynUw5i JllD21zy7B1DwcbF75hlD KhKCE9RKOoZAXqiTUmOMT aDEL2GVIdmDPwD5igTTLa EP6zgipoROvkOLtsCRWei XO3OVJoyEXsW0OhPYHqUG tfXDBprov1CgGwQe9wkBA csCujPCthEtsjfVnyn9Rn dCBcXGlkIDUxMDAwIFxcb wfrYAq4WIYpTIgxfTJaGR 0lxDaxAwvvhJwtc9VnwGQ cXGlkIDUxMDAyIFxcZGIg T0THDTUdLXT4LYK0PjViJ Wr7CLayK1VXDXOpYQRsOL KmFFV6FgJ5PWv3EEGTWk8 zRYgtXKJ4TuE4FBL3BJK6 MCBcXHQgMiBcXGZsIFxcZ iBBcmlhbCBcXGZzIDEwIF swamQ4CLRanqPomSnseI2 cZnMyMFxwYXJcZnMyMlxw YXIgQTEuICBDRVJFQlJPU 1BJTkFMIEZMVUlEXHBhci BSZWNlaXZlZCBmcmVzaCB cuzG6HALmD0Ocl7CpD7ij JZWbZaa2aQGvwjGmNJl7R WRccGFyIFByZXBhcmVkID Xgz7bbVWRsVZgLkHBwr7M pbiBwcmVwYXJhdGlvbnM6 GSRvTa0rQH5ac2IgiNAxw qFtWXTIQHSuwvgej9npv8 Adq8NgaU0rAQncnGMdv1u nuYded0XinNMzVM98ELVf zMYjCQD7HZ6alHfvTBS6 Disclaimer (test code = 6167168235) f0ecwMMbCFIep2wkWHPqc GFuZzEwMzNcZnRuYmpcdW HzXAgiphIxXUinu9ImE5Y yMjAwMFxhbnNpXGRlZmxh yhlwXMYxITD4anHaPYAwL JvbPAPbTTrqEq8faIEtjX ggDoAgXIWlc8gtstWGOAd lCwMdH575NOYdCRcoc2hq l6VdITYazFCeg8K6UIEDc zofsMm9qPxrT32no7T1Ue oqI1jrXJCjRWIzE5VbCS9 qSEXvUqq6REM4RVA7HXYg GLYoM8AgIO2uEJFlbJGwM Tg9k3elgHadHKLrHMB7w1 ihWRkvafDmGO4apg4qpIo 9d2woakOjOTFiQHNdyTUI SAQaO7OddKdlUj8kgVv6k QvrZdseLVI1Lpl0VO1aqy 12eag8vYfnTEEyjoauDrR 7YOmoVQXgkjltSZk8FFgv EGVtpKJ5SAAmxJDsR8MxL HDyYE8ipdt1FPG7KVimNO ZvQtH3ANTvyQWnTBObeGm pXErgd369TPR1XhAfNT2u E1Czb0G4zA7vxWFlGVKsn RIoEoFhHCMflq4nhNBkGN gmh2JhHFM4vwB8xPTzvQH iHMXbHF91Imprc1QwUihn k0BaE59ydPA6BKacf6rdC U2hXlM7tsNqWLzgd1psuR 8aXuX6YAuiWM6lFA4sJMO siM7bnjudDWArIuZdhfnb XGFtzOykioSmJj9lkMgjQ PX7TIphC5ygtK8wEwP5LD riZ8ulqU4qRMu4RSmkpGC 3FEKptJ2vYV2cmvxkw3ps VDkaWUspNGGcczG0kzJ9T SMznIClQ8CrwO7lXBIfSM 5mtwvft1rwAUO7ETerBQP dDDF3JpIxXSOlm5Qeasi9 GoCyq7AsnXLoOAgkE39tm 439DMHpllEdD4tcvRYpag rivJYcnjhhWLqinuO0HOD kdmRax0SyINChCNL0QFop THcqtTPxOWJqzNpdt6brB 3RscGFyXHBsYWluXGYxXG ZzMjBcbGFuZzEwMzNcaGl jaFxmMVxkYmNoXGYxXGxv M0yqUaNxK0JdLODjWcMbh GXlB2hlWYjswbAzTWTjua ZupDI0CCnnC4d5JJZlzqT jaIb0vtNjEqVoTPWnOPL7 MPnwvNAbPNUjo2Wsryqby QRaKu6luDXsDRPvvM7uIR LsPPZzNArpVY4dxPa6HXG JlVUjaEVsWiFWIMNmFJ15 ulPqBHIPomsfg1M9FTsfO OFrd3CvzPTnP0qcj4GvKY Itx69hJV1jw9X7i5bdQZW 1HY2iq3TgJFIbvKXxwQTn NKWry0Wxcsgkx7BgBABva gHgb1OyGKDhwmSdmQWeTI LzglNxvy3xbzJqHSYoRDT mU5TbkcqawRaibwQzYCSk lz8geeSsTPL6SGLGUSSmC QLja5AmfK6zkAOFLZV6aK Ryfq5obgDPtHXtFNWuvb1 7VDPcOT7oD8krFJUcRDRv wuDofIIsi7HzCRDvgZT4x KPtHG3VWcKMq61pSMNtIR OQbpMcSFKvcEhtwBS9mbV 6uF8qGTjFANLuLiw+IFRo JPRMSFRyIH7hlnXyx6Yux bCioAgnTPYtlVDwn4ZqiM Nxv0EraSasx8UyxGLgiMP eWX5qUIQppwzqUDLxTIKG UrFLMZKtfsF0t9OfULEeE OScFUP6lVpdjzs4EADctH 1pHZScK0erifnaLYjeXOW oz1JktQ8lwRIJrZMhd1Kg mFMypIKLlENkGB0fxdToE PfOIGvBTRZ6vhBdBPLtp6 HgPYkhW0teN00rkGjvbUr 7hGS9PEC2cS9uOfx+IFxw YXJccGFyIEFwcHJvcHJpY YMdcNtalkNoK5MkwjAigG 1zaSQlodBjVF3rHT5jW2Q 5qENcJYCvvwEqa1rzQYav dmUgYmVlbiByZXZpZXdlZ JMxh4OfOKfdMVG0IZxwdl BpbmNsdWRpbmcgSCZFLCB TpQOugDEcVOZ5NHztepFd hqRlJU7srG7xvDlhlL2dc GHedBO0qkylOEZoUXBywB goCIShQO1bpMMgVONbapH YkChkdGGsiF7aF9VcMKBe QUXjwk8mBLPkjY3wXOppo 2VydmljZXMgYXJlIHBlcm Lneh5jHOHneDQXNS2CTHj lmCHmn1RdqsKwA8aRBDZ2 NUQwNjYwMjgxKSBleGNlc VHfANDecn70FHLvoE5wdX nzVYWyfM1tpS2ynTnvmC6 iXnNqNfUiOMxfVS9sNWPw D7uycUKxPUIcUVZcG4xgD iBgsL4giVhhCZweOaEtJk PoNLdfPOK9sZ== Embedded Images (test code = 9929604099) [facility] WITH [id number] 12:02:06* Test Item Value Reference Range Interpretation Comme nts WBC (test code = 6690-2) See_Comment L [Automated messa ge] The system which generated this result transmitted reference range: 4.20 - 10.70 10*3/?L. The reference range was not used to interpret this result as normal/abnormal. RBC (test code = 789-8) See_Comment L [Automated messa ge] The system which generated this result transmitted reference range: 4.26 - 5.52 10*6/?L. The reference range was not used to interpret this result as normal/abnormal. HGB (test code = 718-7) 7.5 g/dL 12.2-16.4 L HCT (test code = 4544-3) 22.6 % 38.4-49.3 L MCV (test code = 787-2) 90.4 fL 81.7-95.6 MCH (test code = 785-6) 30.0 pg 26.1-32.7 MCHC (test code = 786-4) 33.2 g/dL 31.2-35.0 RDW-SD (test code = 00121-9) 56.8 fL 38.5-51.6 H RDW-CV (test code = 788-0) 17.9 % 12.1-15.4 H PLT (test code = 777-3) See_Comment L [Automated messa ge] The system which generated this result transmitted reference range: 150 - 328 10*3/?L. The reference range was not used to interpret this result as normal/abnormal. MPV (test code = 50832-0) 11.0 fL 9.8-13.0 IPF % (test code = 7173848529) 1.3 % 1.2-10.7 Platelet count measured by fluorescence method. NRBC/100 WBC (test code = 5372704827) See_Comment [Automated ASP64 ssage] The system which generated this result transmitted reference range: 0.0 - 10.0 /100 WBCs. The reference range was not used to interpret this result as normal/abnormal. NRBC x10^3 (test code = 3426014955) See_Comment [Automated messa ge] The system which generated this result transmitted reference range: 10*3/?L. The reference range was not used to interpret this result as normal/abnormal. GRAN MAT (NEUT) % (test code = 770-8) 97.1 % IMM GRAN % (test code = 3309925777) 0.50 % LYMPH % (test code = 736-9) 1.9 % MONO % (test code = 5905-5) 0.5 % EOS % (test code = 713-8) 0.0 % BASO % (test code = 706-2) 0.0 % GRAN MAT x10^3(ANC) (test code = 4221814531) 2.01 10*3/uL 1.99-6.95 IMM GRAN x10^3 (test code = 3806562011) 0.00-0.06 LYMPH x10^3 (test code = 731-0) 0.04 10*3/uL 1.09-3.23 L MONO x10^3 (test code = 742-7) 0.36-1.02 L EOS x10^3 (test code = 711-2) 0.06-0.53 L BASO x10^3 (test code = 704-7) 0.01-0.09 Lab Interpretation (test code = 16872-2) [facility] ([id number])2022-06-20 11:50:05* Test Item Value Reference Range Interpretation Comme nts NA (test code = 3270026386) 138 mmol/L 135-145 K (test code = 4383288859) 3.4 mmol/L 3.5-5.0 L CL (test code = 5865541483) 107 mmol/L 98-108 CO2 TOTAL (test code = 8461858453) 29 mmol/L 23-31 AGAP (test code = 0361698740) 2-16 BUN (test code = 5670175489) 13 mg/dL 7-23 GLUCOSE (test code = 3523933082) 104 mg/dL 70-110 CREATININE (test code = 9513202120) 0.53 mg/dL 0.60-1.25 L TOTAL BILI (test code = 2076241424) 1.2 mg/dL 0.1-1.1 H CALCIUM (test code = 1558360479) 7.2 mg/dL 8.6-10.6 L T PROTEIN (test code = 4332266219) 5.4 g/dL 6.3-8.2 L ALBUMIN (test code = 8942841560) 2.9 g/dL 3.5-5.0 L ALK PHOS (test code = 0066955320) 83 U/L 34-122 ALTv (test code = 1742-6) 189 U/L 5-50 H AST(SGOT) (test code = 7935236855) 166 U/L 13-40 H eGFR (test code = 6353106253) mL/min/1.73m2 MONTSERRAT (test code = MONTSERRAT) Association of Glomerular Filtration Rate (GFR) and Staging of Kidney Disease* + --+ --+ ------+| GFR (mL/min/1.73 m2) ?| With Kidney Damage ?| ?Without Kidney Damage+ --------+ --------+ +| ?>90 ?| ?Stage one ?| ? Normal ?+ ---+ ---+ -------+| ?60-89 ?| ?Stage two ?| ? Decreased GFR ? + --+ --+ ------+| ?30-59 ?| ?Stage three ?| ? Stage three ? + --+ --+ ------+| ?15-29 ?| ?Stage four ? | ? Stage four ?+ ---+ ---+ -------+| ?<15 (or dialysis) ? ?| ?Stage five ? | ? Stage five ?+ ---+ ---+ -------+ *Each stage assumes the associated GFR level has been in effect for at least three months. ?Stages 1 to 5, with or without kidney disease, indicate chronic kidney disease. Notes: Determination of stages one and two (with eGFR >59mL/min/1.73 m2) requires estimation of kidney damage for at least three months as defined by structural or functional abnormalities of the kidney, manifested by either:Pathological abnormalities or Markers of kidney damage (including abnormalities in the composition of the blood or urine or abnormalities in imaging tests). Lab Interpretation (test code = 13295-8) [facility] [id number] 11:50:05* Test Item Value Reference Range Interpretation Comme nts URIC ACID (test code = 3722554198) 4.4 mg/dL 3.6-8.0 Lab Interpretation (test cod e = 65623-6) [facility] TDYETXGIEGRXW0891-00-84 11:50:05* Test Item Value Reference Range Interpretation Comme nts LDH (test code = 2379861054) 315 U/L 120-246 H Lab Interpretation (test cod e = 01684-5) [facility]2022-12-28 11:50:05* Test Item Value Reference Range Interpretation Comme nts MAGNESIUM (test code = 9577300034) 1.9 mg/dL 1.7-2.4 Lab Interpretation (test cod e = 07714-2) [facility]2022-12-28 11:50:05* Test Item Value Reference Range Interpretation Comme nts PHOSPHORUS (test code = 8662171162) 2.2 mg/dL 2.5-5.0 L Lab Interpretation (test cod e = 37729-7) [facility]normal [facility]ATE2022-12-28 04:42:22* Test Item Value Reference Range Interpretation Comme nts METHOTREX (test code = 5184222635) 0.070 umol/L MONTSERRAT (test code = MONTSERRAT) THERAPEUTIC RANGE = VARIABLE (DEPENDS ON TREATMENT PROTOCOL)TOXIC RANGE = GREATER THAN 10.00 UMOL/L @ 24 HRS ?GREATER THAN ?1.00 UMOL/L @ 48 HRS ?GREATER THAN ?0.10 UMOL/L @ 72 HRS Test developed and characteristics determined [facility]. [facility] ([id number])2022-06-19 11:08:47* Test Item Value Reference Range Interpretation Comme nts NA (test code = 2200280298) 137 mmol/L 135-145 K (test code = 2633129305) 3.8 mmol/L 3.5-5.0 CL (test code = 7731468543) 107 mmol/L 98-108 CO2 TOTAL (test code = 8065026829) 27 mmol/L 23-31 AGAP (test code = 9401428787) 2-16 BUN (test code = 8384437990) 14 mg/dL 7-23 GLUCOSE (test code = 6054316130) 121 mg/dL 70-110 H CREATININE (test code = 8436497067) 0.56 mg/dL 0.60-1.25 L TOTAL BILI (test code = 0268115196) 1.1 mg/dL 0.1-1.1 CALCIUM (test code = 4404902752) 7.1 mg/dL 8.6-10.6 L T PROTEIN (test code = 6626614792) 5.7 g/dL 6.3-8.2 L ALBUMIN (test code = 8008988183) 3.1 g/dL 3.5-5.0 L ALK PHOS (test code = 5183229884) 99 U/L 34-122 ALTv (test code = 1742-6) 256 U/L 5-50 H AST(SGOT) (test code = 5642265392) 295 U/L 13-40 H eGFR (test code = 2151452768) mL/min/1.73m2 MONTSERRAT (test code = MONTSERRAT) Association of Glomerular Filtration Rate (GFR) and Staging of Kidney Disease* + --+ --+ ------+| GFR (mL/min/1.73 m2) ?| With Kidney Damage ?| ?Without Kidney Damage+ --------+ --------+ +| ?>90 ?| ?Stage one ?| ? Normal ?+ ---+ ---+ -------+| ?60-89 ?| ?Stage two ?| ? Decreased GFR ? + --+ --+ ------+| ?30-59 ?| ?Stage three ?| ? Stage three ? + --+ --+ ------+| ?15-29 ?| ?Stage four ? | ? Stage four ?+ ---+ ---+ -------+| ?<15 (or dialysis) ? ?| ?Stage five ? | ? Stage five ?+ ---+ ---+ -------+ *Each stage assumes the associated GFR level has been in effect for at least three months. ?Stages 1 to 5, with or without kidney disease, indicate chronic kidney disease. Notes: Determination of stages one and two (with eGFR >59mL/min/1.73 m2) requires estimation of kidney damage for at least three months as defined by structural or functional abnormalities of the kidney, manifested by either:Pathological abnormalities or Markers of kidney damage (including abnormalities in the composition of the blood or urine or abnormalities in imaging tests). Lab Interpretation (test code = 30287-1) [facility] [id number] 11:08:47* Test Item Value Reference Range Interpretation Comme nts URIC ACID (test code = 3221949292) 5.4 mg/dL 3.6-8.0 Lab Interpretation (test cod e = 44475-3) [facility] BGARIJGCWCAIQ1457-92-40 11:08:47* Test Item Value Reference Range Interpretation Comme nts LDH (test code = 4604781072) 379 U/L 120-246 H Lab Interpretation (test cod e = 99020-3) [facility]normal [facility]2022-[facility]-27 11:08:47* Test Item Value Reference Range Interpretation Comme nts MAGNESIUM (test code = 3898758585) 2.0 mg/dL 1.7-2.4 Lab Interpretation (test cod e = 70377-4) [facility]2022-[facility]-27 11:08:47* Test Item Value Reference Range Interpretation Comme nts PHOSPHORUS (test code = 8864032183) 2.6 mg/dL 2.5-5.0 Lab Interpretation (test cod e = 25772-4) [facility] WITH [id number] 11:05:55* Test Item Value Reference Range Interpretation Comme nts WBC (test code = 6690-2) See_Comment L [Automated messa ge] The system which generated this result transmitted reference range: 4.20 - 10.70 10*3/?L. The reference range was not used to interpret this result as normal/abnormal. RBC (test code = 789-8) See_Comment L [Automated messa ge] The system which generated this result transmitted reference range: 4.26 - 5.52 10*6/?L. The reference range was not used to interpret this result as normal/abnormal. HGB (test code = 718-7) 8.2 g/dL 12.2-16.4 L HCT (test code = 4544-3) 24.6 % 38.4-49.3 L MCV (test code = 787-2) 92.1 fL 81.7-95.6 MCH (test code = 785-6) 30.7 pg 26.1-32.7 MCHC (test code = 786-4) 33.3 g/dL 31.2-35.0 RDW-SD (test code = 97174-4) 57.9 fL 38.5-51.6 H RDW-CV (test code = 788-0) 18.0 % 12.1-15.4 H PLT (test code = 777-3) See_Comment L [Automated messa ge] The system which generated this result transmitted reference range: 150 - 328 10*3/?L. The reference range was not used to interpret this result as normal/abnormal. MPV (test code = 51395-4) 10.6 fL 9.8-13.0 NRBC/100 WBC (test code = 4075487494) See_Comment [Automated ASP64 ssage] The system which generated this result transmitted reference range: 0.0 - 10.0 /100 WBCs. The reference range was not used to interpret this result as normal/abnormal. NRBC x10^3 (test code = 3468256805) See_Comment [Automated messa ge] The system which generated this result transmitted reference range: 10*3/?L. The reference range was not used to interpret this result as normal/abnormal. GRAN MAT (NEUT) % (test code = 770-8) 93.9 % IMM GRAN % (test code = 3610162677) 0.50 % LYMPH % (test code = 736-9) 3.3 % MONO % (test code = 5905-5) 2.3 % EOS % (test code = 713-8) 0.0 % BASO % (test code = 706-2) 0.0 % GRAN MAT x10^3(ANC) (test code = 7168354824) 2.01 10*3/uL 1.99-6.95 IMM GRAN x10^3 (test code = 0580398010) 0.00-0.06 LYMPH x10^3 (test code = 731-0) 0.07 10*3/uL 1.09-3.23 L MONO x10^3 (test code = 742-7) 0.05 10*3/uL 0.36-1.02 L EOS x10^3 (test code = 711-2) 0.06-0.53 L BASO x10^3 (test code = 704-7) 0.01-0.09 Lab Interpretation (test code = 26746-7) [facility]normal [facility]2022-[facility]-27 03:30:54* Test Item Value Reference Range Interpretation Comme nts METHOTREX (test code = 5217093730) 0.070 umol/L MONTSERRAT (test code = MONTSERRAT) THERAPEUTIC RANGE = VARIABLE (DEPENDS ON TREATMENT PROTOCOL)TOXIC RANGE = GREATER THAN 10.00 UMOL/L @ 24 HRS ?GREATER THAN ?1.00 UMOL/L @ 48 HRS ?GREATER THAN ?0.10 UMOL/L @ 72 HRS Test developed and characteristics determined by [facility]. [facility] IrvingALPHA UFRWOEYEDGE5806-01-82 16:06:16* Test Item Value Reference Range Interpretation Comme [facility] AFP (test code = 7504150995) 2.9 ng/mL See_Comment [Automated message] The system which generated this result transmitted reference range: <=7.5. The reference range was not used to interpret this result as normal/abnormal. MONTSERRAT (test code = MONTSERRAT) Biotin has been reported to cause a negative bias, interpret results relative to patient's use of biotin. Lab Interpretation (test code = 15584-8) Normal [facility]2022-12-26 05:09:06* Test Item Value Reference Range Interpretation Comme nts METHOTREX (test code = 6325565334) 5.810 umol/L MONTSERRAT (test code = MONTSERRAT) THERAPEUTIC RANGE = VARIABLE (DEPENDS ON TREATMENT PROTOCOL)TOXIC RANGE = GREATER THAN 10.00 UMOL/L @ 24 HRS ?GREATER THAN ?1.00 UMOL/L @ 48 HRS ?GREATER THAN ?0.10 UMOL/L @ 72 HRS Test developed and characteristics determined by [facility]. [facility] IrvingPrepare Packed RBC (in units), 1 Units 2022-06-16 22:59:44* Test Item Value Reference Range Interpretation Comme nts Cross Match Result (test code = 4409) Compatible ISBT Blood Type Code (test code = 020817) Unit Blood Type (test code = 4410) O Pos Unit Number (test code = 4411) [id number] Blood Expiration Date & Time (test code = 180566) Status Information (test code = 4412) Issued Product Identification (test code = 4413) Red Blood Cells Product Code (test code = 4414) [id number] Performed at [facility] Laboratory Services - [address] Free: [phone] No. [id number] [facility] IrvingType and Screen - ONCE [id number] 21:30:27 * Test Item Value Reference Range Interpretation Comme nts ABO & RH (test code = 20) O POSITIVE Performed at [facility] Laboratory Services - [address] Free: [phone] No. [id number] IAT (test code = 1185) Negative Performed at [facility] Laboratory Services - [address] Free: [phone] No. [id number] [facility] IrvingHEPATITIS C VIRUS (HCV) BY QUANTITATIVE NAAT 2022-06-16 16:56:50* Test Item Value Reference Range Interpretation Comme nts HCV Quantitative NAAT - log IU/mL (test code = 83966-1) Not Detected log IU/mL HCV Quantitative NAAT - IU/mL (test code = 34043-8) Not Detected IU/mL HCV Quantitative Interpretation (test code = 7907659185) Detected Not Detected A MONTSERRAT (test code = MONTSERRAT) The Aptima HCV Deondre nt Dx assay is an FDA-approved real-time audio visual engineer-mediate d amplification (TMA) test used for both detection and quantitation of hepatitis C virus (HCV) RNA in human serum and plasma from HCV-infected individuals. ?It is intended for use as an aid in the diagnosis of active HCV infection and the management of HCV-infected patients undergoing HCV antiviral drug therapy. ?It is not approved for use as a screening test for the presence of HCV RNA in blood or blood products. The quantitative range of this assay is 1.00 - 8.00 log IU/mL or 10 - 100,000,000 IU/mL. An interpretation of "Not Detected" does not rule out the presence of inhibitors in the patient specimen or HCV RNA concentration below the level of detection of the test. ?Care should be taken when interpreting any single viral load determination. Detected, not Quantifiable: HCV RNA detected, but at a level below 10 IU/mL (1.0 log IU/mL). ?HCV RNA concentration is below the lower limit of quantitation of the assay. Indeterminate: Error indicated in the generation of the result. ?Please submit a new specimen for repeat testing if clinically indicated. Lab Interpretation (test code = 66112-7) Abnormal [facility]. METABOLIC PANEL ([id number])2022-06-16 11:33:54* Test Item Value Reference Range Interpretation Comme nts NA (test code = 1839240795) 138 mmol/L 135-145 K (test code = 5168359830) 3.9 mmol/L 3.5-5.0 CL (test code = 5672396687) 109 mmol/L 98-108 H CO2 TOTAL (test code = 5237388390) 24 mmol/L 23-31 AGAP (test code = 4278315883) 2-16 BUN (test code = 4450169144) 12 mg/dL 7-23 GLUCOSE (test code = 0587027826) 129 mg/dL 70-110 H CREATININE (test code = 3510129462) 0.70 mg/dL 0.60-1.25 TOTAL BILI (test code = 9921662015) 1.0 mg/dL 0.1-1.1 CALCIUM (test code = 1435387661) 8.2 mg/dL 8.6-10.6 L T PROTEIN (test code = 3434219449) 6.0 g/dL 6.3-8.2 L ALBUMIN (test code = 1418533939) 3.4 g/dL 3.5-5.0 L ALK PHOS (test code = 9666857858) 130 U/L 34-122 H ALTv (test code = 1742-6) 105 U/L 5-50 H AST(SGOT) (test code = 8359907454) 106 U/L 13-40 H eGFR (test code = 2409254248) mL/min/1.73m2 MONTSERRAT (test code = MONTSERRAT) Association of Glomerular Filtration Rate (GFR) and Staging of Kidney Disease* + --+ --+ ------+| GFR (mL/min/1.73 m2) ?| With Kidney Damage ?| ?Without Kidney Damage+ --------+ --------+ +| ?>90 ?| ?Stage one ?| ? Normal ?+ ---+ ---+ -------+| ?60-89 ?| ?Stage two ?| ? Decreased GFR ? + --+ --+ ------+| ?30-59 ?| ?Stage three ?| ? Stage three ? + --+ --+ ------+| ?15-29 ?| ?Stage four ? | ? Stage four ?+ ---+ ---+ -------+| ?<15 (or dialysis) ? ?| ?Stage five ? | ? Stage five ?+ ---+ ---+ -------+ *Each stage assumes the associated GFR level has been in effect for at least three months. ?Stages 1 to 5, with or without kidney disease, indicate chronic kidney disease. Notes: Determination of stages one and two (with eGFR >59mL/min/1.73 m2) requires estimation of kidney damage for at least three months as defined by structural or functional abnormalities of the kidney, manifested by either:Pathological abnormalities or Markers of kidney damage (including abnormalities in the composition of the blood or urine or abnormalities in imaging tests). Lab Interpretation (test code = 78445-4) [id number] 11:33:54* Test Item Value Reference Range Interpretation Comme nts URIC ACID (test code = 3994953074) 4.6 mg/dL 3.6-8.0 Lab Interpretation (test cod e = 63121-7) [facility] 11:33:54* Test Item Value Reference Range Interpretation Comme nts MAGNESIUM (test code = 9245394091) 1.8 mg/dL 1.7-2.4 Lab Interpretation (test cod e = 15038-2) [facility] 11:33:54* Test Item Value Reference Range Interpretation Comme nts PHOSPHORUS (test code = 5917526668) 2.1 mg/dL 2.5-5.0 L Lab Interpretation (test cod e = 35696-2) Abnormal [facility] WITH [id number] 11:03:32* Test Item Value Reference Range Interpretation Comme nts WBC (test code = 6690-2) See_Comment L [Automated messa ge] The system which generated this result transmitted reference range: 4.20 - 10.70 10*3/?L. The reference range was not used to interpret this result as normal/abnormal. RBC (test code = 789-8) See_Comment L [Automated messa ge] The system which generated this result transmitted reference range: 4.26 - 5.52 10*6/?L. The reference range was not used to interpret this result as normal/abnormal. HGB (test code = 718-7) 7.5 g/dL 12.2-16.4 L HCT (test code = 4544-3) 22.7 % 38.4-49.3 L MCV (test code = 787-2) 92.7 fL 81.7-95.6 MCH (test code = 785-6) 30.6 pg 26.1-32.7 MCHC (test code = 786-4) 33.0 g/dL 31.2-35.0 RDW-SD (test code = 98583-0) 57.4 fL 38.5-51.6 H RDW-CV (test code = 788-0) 17.8 % 12.1-15.4 H PLT (test code = 777-3) See_Comment L [Automated messa ge] The system which generated this result transmitted reference range: 150 - 328 10*3/?L. The reference range was not used to interpret this result as normal/abnormal. MPV (test code = 35865-4) 11.3 fL 9.8-13.0 NRBC/100 WBC (test code = 5652548461) See_Comment [Automated me ssage] The system which generated this result transmitted reference range: 0.0 - 10.0 /100 WBCs. The reference range was not used to interpret this result as normal/abnormal. NRBC x10^3 (test code = 2465039411) See_Comment [Automated messa ge] The system which generated this result transmitted reference range: 10*3/?L. The reference range was not used to interpret this result as normal/abnormal. GRAN MAT (NEUT) % (test code = 770-8) 75.6 % IMM GRAN % (test code = 4325798017) 1.50 % LYMPH % (test code = 736-9) 7.4 % MONO % (test code = 5905-5) 15.5 % EOS % (test code = 713-8) 0.0 % BASO % (test code = 706-2) 0.0 % GRAN MAT x10^3(ANC) (test code = 9601250956) 2.44 10*3/uL 1.99-6.95 IMM GRAN x10^3 (test code = 8118272300) 0.05 10*3/uL 0.00-0.06 LYMPH x10^3 (test code = 731-0) 0.24 10*3/uL 1.09-3.23 L MONO x10^3 (test code = 742-7) 0.50 10*3/uL 0.36-1.02 EOS x10^3 (test code = 711-2) 0.06-0.53 L BASO x10^3 (test code = 704-7) 0.01-0.09 Lab Interpretation (test code = 71510-9) Abnormal [facility] FLUID MANUAL [id number] 22:27:47* Test Item Value Reference Range Interpretation Comme nts BF #CELLS CNTD (test code = 8851926471) cells/uL MONTSERRAT (test code = MONTSERRAT) No cells observed. [facility] FLUID DIRECT [id number] 22:27:46* Test Item Value Reference Range Interpretation Comme nts BF COLOR (test code = 3017668483) Clear BF WBC Count (test code = 2536417958) See_Comment [Automated me ssage] The system which generated this result transmitted reference range: 0 - 5 /?L. The reference range was not used to interpret this result as normal/abnormal. BF RBC Count (test code = 7559313032) See_Comment [Automated me ssage] The system which generated this result transmitted reference range: /?L. The reference range was not used to interpret this result as normal/abnormal. [facility] SPIN[facility] [id number] 15:48:23* Test Item Value Reference Range Interpretation Comme nts Case Report (test code = 2626560355) Non-Gynecologic Cytology ?Case: [id number] ?Authorizing Provider: ?Shira Woodward Rp, MD ?Collected: ? 05/28/2022 1315 ?Ordering Location: ? ? Transplant/Gynecology /Onco Received: ?05/28/2022 1352 ? logy (JAKY 9D) ?Specimen: ? ?CEREBRAL SPINAL FLUID ? Final Diagnosis (test code = 0305701778) u1ztxJXuETCgz6etJMOwb GFuZzEwMzNcZnRuYmpcdW MxIHtccnRmMVxlcGljMTA aTNQuOF8slViywXl9eCzi JSCfrdR0bUPbBQutb1ouN IB9p1jamtgiGMLjYCviNi 9udHRibHtcZjAgQXJpYWw 6qD08EYZezS3fvYWrFKm5 XHBhcGVydzEyMjQwXHBhc KMkzSJ5POKbFU0kyjjhAH upYBsrQTHeogD6NRJnmNR dO8BpDOEuPG1snpxxLAX6 KOuxNLLwWPC1KkLhVQEmu 6Bfuov1MrNmhNDqHZrgvN FpblxmczIwXHBhclxiXGZ vZmZhXI3qA8PELAOSF4SW AM3GZKKCZAAETWjuoSMdA GLdQoViOS2SM7VCGGUTXH TZXhEBYFuSO78LUkHaY6E GCOXoGEXQEEJNO27VPR3M KVxwYXJcYjBccGFyfXtcc yUoQKdwr9DoB6ZwBzXxYF xhbnNpXGRlZmxhbmcxMDM bJBB1utWnULVcGUegERJn PHajHw6kjWWalEcaWsHxE UMnj6wazpZWABjpYyGvH0 11IEVyNYxnu8duc1HrGQK fiMSro8L4TTBQwizgjDd5 t8qcGsUnTbY7eMZxSFemO 4bbznOkkHLoB7BtvYTbvV j7nYbbK77hx9B8HddgP6h yMWZxWGWpJ1ZjHP7fPAPx His4CBK2JVJ8UNEqHYIcX 6NuJM5tVTPdnENwNYd5d9 mieUnsPXQhADR5t2sgORr brqQ5KT6uiy9caRo5t0um czEgRGVmYXVsdCBQYXJhZ 6VqnYadYi6cfIs3mTtfBm ytTQJ1Slr2JC4gjm66zxf 5iIalIFYkoyizReF3EUph BASoxdcjZDk1VScsDKPry UK6LBArfKItC9OaHJUcYA 0jpoy0MEV1UYkqCPSeUnT 0NDBcaGVhZGVyeTcyMFxm v458XEX5KwXzZR6sW4Nrm 1X9hJ5hjRIlSZRhaURyFm HsSQSgwn3jnBReWZnmo9U aTZW0xrT0zDCliPFuDYOl PA33Yzqyq3NvVmbyQIF2W HSwhiHzv5Rsv3cuGcCqkz MiR1eeJ9JuESYkNNPjPTI gWkTntgAlw3Lea7ElbAEo wZu2y2suUWKsRICpyJvsm 8odFQG8IQPgB6C5gSAps1 evTFlxAQObaST3hwN5GGV cbYViS3HsjQ7vEYIhTO4e rcx1s3zfAAJ2SGvhFOFfU wM5puD9MUDuwDVvOFBqeP sqDUyoe321FXH8LoUdKHZ wm1ZuL7DziSxeC79peVrz M21yXWIuuOdkkH6hdHzav T5oWeLrVcYjSQropMoiaA FpblxmMVxmczIwXGxhbmc tCOFgMErcN5chXnErWHPo dSuhSAufx4KcTKZsDLOtR lxmczIwXHBhciBJIGhhdm LuiLOme13xDDctoGTbWMA xKZduEJHdhBmnf5AmY0do HH9pY0PumSIltfIioaByT NvpOIPlg7t0oLMkgFhma1 HtzILnDG80kvJsOUQxRRH 8JMLsi2aqAT99cyssQiYm qV65sjEszcMbJCPqh9rtG 8wqrVMbd1Aie1AucpMjMQ kqr8YwKO3ygZRusintrTI 5ZMDgtRLkctTdctR6fYsg VVAfuI7eoA1ifUjagP5kE qHqTtNuIHeyXE7bKPFeQ4 tfhZTaSMQlFRTaB7hmShV tgV8vbAugSdcgurG9ULZa cn19 Final Diagnosis Comment (test code = 1986572236) i5aqwSXuCVUgeZWkMVZbO UfzxwFdAXHigQNuQ0Ijpm yzVOqqCD3jHE5enUjwwOX yhJZsMBGxDqUnz2yae515 eTRnb7njRGAFifocwVv4p GeyV35ip1G5OvolJ31szD IrFRW4NMGvQTSriUOnHSE eZBO6KRSffKYkG9fbLLWc ES7octxsUUxlQHuuCXNen IP5IUDizNQqU1NcYQVdWB wkSNDhufu8XpQwWn8brXR yeTcyMFxwYXJkXHBsYWlu EGJvPkBjA63zHYFfNFWah 6ifuuBuGQPrd47uA8v6EL EqNV5lQJDumhvrgpIteGE qHYCkbbdbaCalqJcmI3c7 ELHvIB0cDN6kySihlxPhz CBjZWxscyBpZGVudGlmaW VkLiBccGFyfQ== Clinical Information (test code = 2302723196) hx burkitts lymphoma Gross Description (test code = 1821986653) r1oedGDmIHWyqMGJKUDiR FHyTQ5vhVwkhNw9wFntRB KaseV7fWPzYQlzy9rrQWB 2l0skkbEDHpanPIWxJOgd ESPqtakpDeW1ZByvKFUcb fjoWWk2ZXunLAWtiXD7EU VdyHGpC9CjDCHrGF7pqht 1CJJ6SWjqIGTdEwZ6QMFq IeGhVuxxIMl0YCBqcnO0P kv5GVUvDHYgnWClt6V1IT hkxwnrANIhrVHdU332QEq dx4BeoIPcARrasJIlRGFW VjruZckhrInch7RykTJcQ GlkIDUxMDAwIFxcbmggXF n7AIXyXAmueNVvXE1zvQe cUixzfUfqs8KueNHcEWdt BWCfPXFyIOmhDVJyAX1AV yIoOGX2HGXgDNhrUVz8GC v5PR0AFoQuXCDjYAkjXPM 8ImTkVMk5OEvdXS0OMDD5 ODgxMjAwNTkgNTUwODMgX Wg5JSThUQmzLFDnkGWfUP xcZnMgMTAgXFxmbCBcXG5 jfVxwbGFpblxmczIwXHBh ciANClxwbGFpblxlcGljT mVzdERvYzEgDQpcbHRycG FyXGxpbjBccmluMCANClx sdHJjaFxmczIyXHBhciAN EpEgKnRmC4PVKIIUT4IBJ E3UDHKNODEVNOnpBMBwJT pSZWNlaXZlZCBmcmVzaCB ksaYiVOUtE8Yef9WtY8zr MFBrRzu5nQYgibYtOUy8K VDedMBdVW7ERJHtxWBsCF DsIoGhkVvcVAHqIUI8iR8 caZhsITQeBFTtauF9eY9d lkrfBWGDy58fle03a5l5Q GFuZCAxIFBhcGFuaWNvbG XbzECulBBzlqEoVX1QWOL usZDNRRA6VM5mVQs3HRua EGXmK6JdV9DozmFiqWGpQ SBdavXnf8amKJI7LDJaxI VagSGpFgUoQrmxGJJ2BKB cVQkjGQ4TDORaAEW4XXdf lF05xWEdKT9KLAUuCNooK QUvDPIermI5YUBwcZMuTH F6XY0jjRhzmBKyizhctcH 0HA0DfS== Disclaimer (test code = 9309490607) p0ohkGOgPGZhi2ynAYYws GFuZzEwMzNcZnRuYmpcdW GmPAtdtvRzOEqoa8IdA8W yMjAwMFxhbnNpXGRlZmxh xuejFOOdWOE2cqKeKVDfT TibOGXaOSspYn0enDFyoI rzGdIjATFoe2slckYEHGx yCnMzA221BIEuTQagp9kz l0TqBJUvnONij1K4UVQCw ksfrGv7tMqgL50aw2G4Vc gaH7dsGOYzCPCeP4GlXI8 dZDTjSqi1CPX4KSH1ZAOn TODhZ3LpCC3lJCGecJLhM Wf5x9ortErgYGKwDUW7n2 loCCikdrRsNO8ajv0xkId 7x3gfnjBjUWYqUWCjjCLB PMSqE5UnuJavLj3tdBd8r PdwOtmaGHJ5Bph5NB0lhm 37eht1wHjkMINxhqrtXnG 8XTcrZODhrtqfUVr1ZYre PHChnSM9CNFobDIdB3JvM ZOgLU0rrif2ZKX4RVgbLT BqCdK6TWZocVIaDJTrwQo fFZgom242ANP1NnGvTI1u X6Gys3X3pF3uyALeQWRti FKwVoReARAech7sfHEkKT zdg4YgRXW8lxY9oQBnpXF zVUYcFR72Otohx5FyDznu h0TkI42wwLU3RPbnz8ffG E7wJgA2zmZzABgim5pchX 6oWkZ4UAcnRV2xRV7kOKE rpP4nubkpMWJaKfFjnlvv CXVdfFupyeWjBp6uyIcsB FZ6YZxkC5lrcQ3dWwM6IL erS9bshI8eZDw4OCobvKU 5NVAovL4gBW3grosay0mb SBdnXEesLKVgwkC3yaW8W CYqzGRnB1YvzF9gFBVmCD 8xymznq7vdPXI3ZRtcPEC lITH3GoMvDDJqq2Mzmgu4 FrYrr9WjkPOqTGmmG32ig 395VAKyafPqJ5lxfHJwct gruPCpudufBEluyjK5FMI fkvXkq9WcIWZmALB6NHah KMlcdHQzAFUvdKwzf7xtU 3RscGFyXHBsYWluXGYxXG ZzMjBcbGFuZzEwMzNcaGl jaFxmMVxkYmNoXGYxXGxv E3iaVaFuH7JgUIAsAdMkx KBlO1swGHtgppDeJNUtrf BzyTZ2DMzdD9j4SMMveiE wsCa3hjPgOpAwBVUpMCO5 FEtioKHiNVKst4Nbylpqf IKrEe9pfJTsNTInfD1dUL AyZXNcFCyhNZ3ufDc0LMA RnDBxqCGlWqHLYQMcUF21 vmNwHHHFxaynu8F5IBitP SQbw0XtdENuX9opa3GzZC Afo79eZQ1av1H4d8qsMYI 3JG1pc0ZjIKLdfSOjrXEn BMPpm9Nqbmfnv5WoLIXpe nAxo9RvDBLwlmSaaZChBS DxyeBfhr7onoFyIIYdUDF bC5UwopbdmPuaopPhEROp jy7ixbDtPYO2LLTKHLGtT BPgl9NljL5jdXSKILY3pG Nvpd9iszYMkHSxWKFbmd6 9CDVhJY5lM4dsLGAzSZZh rqWxaVBxr8VwTPAnmVO1p GMcIV2UZsDQq03lZSHyCH LIwhUeEOZmrVzowQJ8idH 7lX0nLEnVTJJzLjh+IFRo PWOHLMWsUE4tdjIzu0Lgg bCbxReoQAGfrSWqk4ImqD Vqw9MknLtrl1QvbLEmjFW jHH2qEPAxcoaxXXBwYLCJ DvHYLUXcciN8c0RkCGYeP BCiMXW0iOhtizq9EYYtfN 5lGCQpU0wdsiehCLcbFQY lh0ZogV1acDNViCTrz1Gk qLEvmILVsJKhKJ3fceNeL TsTEHkJTLZ4koDjENNle8 ZcFJuuE0wnY21gnPvexXv 1sEC4WEV1dN5vOry+IFxw YXJccGFyIEFwcHJvcHJpY TJbeNurwnFnK1DcftWusY 9fyTFolcUbLU7dPQ0tX0U 0uJAlDUKfzrEzr4bcBQnq dmUgYmVlbiByZXZpZXdlZ AAvn2GoCQiqBEJ4MFcgpx BpbmNsdWRpbmcgSCZFLCB RwDZdiZTwNXX5ZFrmudQx atSsMO4nhB8ucYbtsY2fb TLosXV8tgqgJBEjFMUuxS fzMEInVT5ebMDoCFCaaoG VzZgtxWUyeD0vW7YfVAEq ADEcns9nIMXbbO1mBAmed 2VydmljZXMgYXJlIHBlcm Kmwc8sCEYkaOHRGC2BSRi yzQTpk2XqdsFcB2pHJTD3 NUQwNjYwMjgxKSBleGNlc PHcXGIhva32QTUioL4pyH jqUKAmdK7ecO8taMqgvG2 kFdGvMmPgHWsxEH5nBEJo O8gsvJEfBEGpGNDrV3xbO bVfwB8neJmlPOnrZfDuGl QpJZyhYJJ0tE== Embedded Images (test code = 6637615166) [facility] GLUCOSE (AUTOMATED)2022-05-29 14:06:08* Test Item Value Reference Range Interpretation Comme nts POCT GLU (test code = 7168593757) 91 mg/dL 70-110 Lab Interpretation (test cod e = 05287-3) Normal [facility] GLUCOSE (AUTOMATED)2022-05-29 01:37:07* Test Item Value Reference Range Interpretation Comme nts POCT GLU (test code = 6048262411) 165 mg/dL 70-110 H Lab Interpretation (test cod e = 46109-6) Abnormal [facility] GLUCOSE (AUTOMATED)2022-05-28 22:09:27* Test Item Value Reference Range Interpretation Comme nts POCT GLU (test code = 4576187528) 121 mg/dL 70-110 H Lab Interpretation (test cod e = 00972-4) Abnormal [facility] GLUCOSE (AUTOMATED)2022-05-28 18:16:07* Test Item Value Reference Range Interpretation Comme nts POCT GLU (test code = 6782851780) 111 mg/dL 70-110 H Lab Interpretation (test cod e = 56576-1) Abnormal [facility] GLUCOSE (AUTOMATED)2022-05-28 14:26:10* Test Item Value Reference Range Interpretation Comme nts POCT GLU (test code = 0767032158) 137 mg/dL 70-110 H Lab Interpretation (test cod e = 73526-0) Abnormal [facility] GLUCOSE (AUTOMATED)2022-05-28 02:19:10* Test Item Value Reference Range Interpretation Comme nts POCT GLU (test code = 4398951077) 199 mg/dL 70-110 H Lab Interpretation (test cod e = 14395-2) Abnormal [facility] GLUCOSE (AUTOMATED)2022-05-27 23:22:52* Test Item Value Reference Range Interpretation Comme nts POCT GLU (test code = 8813343925) 181 mg/dL 70-110 H Lab Interpretation (test cod e = 00225-4) Abnormal [facility] GLUCOSE (AUTOMATED)2022-05-27 18:35:02* Test Item Value Reference Range Interpretation Comme nts POCT GLU (test code = 4724319162) 144 mg/dL 70-110 H Lab Interpretation (test cod e = 26987-2) [facility]normal [facility] Screen - ONCE [id number] 19:45:53* Test Item Value Reference Range Interpretation Comme nts ABO & RH (test code = 20) O POSITIVE Performed at [facility] Laboratory Services - [facility] Blood [address] [address]Gtey Free: [phone] No. [id number] IAT (test code = 1185) Negative Performed at [facility] Laboratory Services - [facility] Blood [address] [address]Lmcl Free: [phone] No. [id number] [facility] Irving[facility] WITH [id number] 10:16:51* Test Item Value Reference Range Interpretation Comme nts WBC (test code = 6690-2) See_Comment LL [Automated messa ge] The system which generated this result transmitted reference range: 4.20 - 10.70 10*3/?L. The reference range was not used to interpret this result as normal/abnormal. RBC (test code = 789-8) See_Comment L [Automated messa ge] The system which generated this result transmitted reference range: 4.26 - 5.52 10*6/?L. The reference range was not used to interpret this result as normal/abnormal. HGB (test code = 718-7) 8.5 g/dL 12.2-16.4 L HCT (test code = 4544-3) 25.4 % 38.4-49.3 L MCV (test code = 787-2) 89.4 fL 81.7-95.6 MCH (test code = 785-6) 29.9 pg 26.1-32.7 MCHC (test code = 786-4) 33.5 g/dL 31.2-35.0 RDW-SD (test code = 99281-8) 46.4 fL 38.5-51.6 RDW-CV (test code = 788-0) 14.3 % 12.1-15.4 PLT (test code = 777-3) See_Comment [Automated messa ge] The system which generated this result transmitted reference range: 150 - 328 10*3/?L. The reference range was not used to interpret this result as normal/abnormal. MPV (test code = 52654-6) 9.7 fL 9.8-13.0 L NRBC/100 WBC (test code = 9957925642) See_Comment [Automated ASP64 ssage] The system which generated this result transmitted reference range: 0.0 - 10.0 /100 WBCs. The reference range was not used to interpret this result as normal/abnormal. NRBC x10^3 (test code = 3685862988) See_Comment [Automated messa ge] The system which generated this result transmitted reference range: 10*3/?L. The reference range was not used to interpret this result as normal/abnormal. GRAN MAT (NEUT) % (test code = 770-8) 80.3 % IMM GRAN % (test code = 2564413954) 2.70 % LYMPH % (test code = 736-9) 10.9 % MONO % (test code = 5905-5) 5.4 % EOS % (test code = 713-8) 0.0 % BASO % (test code = 706-2) 0.7 % GRAN MAT x10^3(ANC) (test code = 6242316546) 1.18 10*3/uL 1.99-6.95 L IMM GRAN x10^3 (test code = 7875116004) 0.04 10*3/uL 0.00-0.06 LYMPH x10^3 (test code = 731-0) 0.16 10*3/uL 1.09-3.23 L MONO x10^3 (test code = 742-7) 0.08 10*3/uL 0.36-1.02 L EOS x10^3 (test code = 711-2) 0.06-0.53 L BASO x10^3 (test code = 704-7) 0.01-0.09 REACT LYMPHS (test code = 5194641578) Rare Lab Interpretation (test code = 64499-1) [facility]normal [facility] IrvingBL[facility] UREA [id number] 09:35:43* Test Item Value Reference Range Interpretation Comme nts BUN (test code = 1642888343) 11 mg/dL 7-23 Lab Interpretation (test cod e = 16133-3) Normal [facility] IrvingCREATININE2022-11-12 09:35:43* Test Item Value Reference Range Interpretation Comme nts CREATININE (test code = 3643811302) 0.67 mg/dL 0.60-1.25 eGFR (test code = 5280362952) mL/min/1.73m2 MONTSERRAT (test code = MONTSERRAT) Association of Glomerular Filtration Rate (GFR) and Staging of Kidney Disease* + + +- +| GFR (mL/min/1.73 m2) ?| With Kidney Damage ?| ?Without Kidney Damage+ ------+ ----+ ------+| ?>90 ?| ?Stage one ?| ? Normal ?+ -+ + -+| ?60-89 ?| ?Stage two ?| ? Decreased GFR ? + + +- +| ?30-59 ?| ?Stage three ?| ? Stage three ? + + +- +| ?15-29 ?| ?Stage four ? | ? Stage four ?+ -+ + -+| ?<15 (or dialysis) ? ?| ?Stage five ? | ? Stage five ?+ -+ + -+ *Each stage assumes the associated GFR level has been in effect for at least three months. ?Stages 1 to 5, with or without kidney disease, indicate chronic kidney disease. Notes: Determination of stages one and two (with eGFR >59mL/min/1.73 m2) requires estimation of kidney damage for at least three months as defined by structural or functional abnormalities of the kidney, manifested by either:Pathological abnormalities or Markers of kidney damage (including abnormalities in the composition of the blood or urine or abnormalities in imaging tests). [facility] IrvingLACTATE [id number] 09:35:43* Test Item Value Reference Range Interpretation Comme nts LDH (test code = 8756716991) 195 U/L 120-246 Lab Interpretation (test cod e = 35806-1) Normal [facility] IrvingPOTASSIUM [id number] 09:35:43* Test Item Value Reference Range Interpretation Comme nts K (test code = 4898588518) 3.8 mmol/L 3.5-5.0 Lab Interpretation (test cod e = 97339-9) Normal [facility] IrvingCALCIUM2022-11-12 09:35:43* Test Item Value Reference Range Interpretation Comme nts CALCIUM (test code = 7596364774) 7.6 mg/dL 8.6-10.6 L Lab Interpretation (test cod e = 73654-4) [facility]normal [facility] IrvingPHOSPHORUS2022-11-12 09:35:43* Test Item Value Reference Range Interpretation Comme nts PHOSPHORUS (test code = 0199303425) 1.8 mg/dL 2.5-5.0 L Lab Interpretation (test cod e = 64769-3) Abnormal [facility] IrvingURIC [id number] 09:35:43* Test Item Value Reference Range Interpretation Comme nts URIC ACID (test code = 3217542148) 2.9 mg/dL 3.6-8.0 L Lab Interpretation (test cod e = 59519-6) [facility]normal [facility] Irving[facility] GL[facility]AUTOMATED)2022-05-05 01:44:37* Test Item Value Reference Range Interpretation Comme [facility] POCT GLU (test code = 3997846842) 162 mg/dL 70-110 H Lab Interpretation (test cod e = 13612-5) Abnormal [facility] WITH [id number] 11:51:15* Test Item Value Reference Range Interpretation Comme [facility] WBC (test code = 6690-2) See_Comment LL [Automated DineGasma ge] The system which generated this result transmitted reference range: 4.20 - 10.70 10*3/?L. The reference range was not used to interpret this result as normal/abnormal. RBC (test code = 789-8) See_Comment L [Automated messa ge] The system which generated this result transmitted reference range: 4.26 - 5.52 10*6/?L. The reference range was not used to interpret this result as normal/abnormal. HGB (test code = 718-7) 7.3 g/dL 12.2-16.4 L HCT (test code = 4544-3) 20.8 % 38.4-49.3 L MCV (test code = 787-2) 88.1 fL 81.7-95.6 MCH (test code = 785-6) 30.9 pg 26.1-32.7 MCHC (test code = 786-4) 35.1 g/dL 31.2-35.0 H RDW-SD (test code = 57412-6) 46.3 fL 38.5-51.6 RDW-CV (test code = 788-0) 14.6 % 12.1-15.4 PLT (test code = 777-3) See_Comment [Automated messa ge] The system which generated this result transmitted reference range: 150 - 328 10*3/?L. The reference range was not used to interpret this result as normal/abnormal. MPV (test code = 86491-3) 9.9 fL 9.8-13.0 NRBC/100 WBC (test code = 8019209342) See_Comment [Automated me ssage] The system which generated this result transmitted reference range: 0.0 - 10.0 /100 WBCs. The reference range was not used to interpret this result as normal/abnormal. NRBC x10^3 (test code = 7207000677) See_Comment [Automated messa ge] The system which generated this result transmitted reference range: 10*3/?L. The reference range was not used to interpret this result as normal/abnormal. GRAN MAT (NEUT) % (test code = 770-8) 47.2 % IMM GRAN % (test code = 8782996744) 0.00 % LYMPH % (test code = 736-9) 25.5 % MONO % (test code = 5905-5) 24.5 % EOS % (test code = 713-8) 0.0 % BASO % (test code = 706-2) 2.8 % GRAN MAT x10^3(ANC) (test code = 2917498176) 0.50 10*3/uL 1.99-6.95 L IMM GRAN x10^3 (test code = 4501581347) 0.00-0.06 LYMPH x10^3 (test code = 731-0) 0.27 10*3/uL 1.09-3.23 L MONO x10^3 (test code = 742-7) 0.26 10*3/uL 0.36-1.02 L EOS x10^3 (test code = 711-2) 0.06-0.53 L BASO x10^3 (test code = 704-7) 0.03 10*3/uL 0.01-0.09 Lab Interpretation (test code = 59186-7) [facility]normal [facility] IrvingMAGNESIUM2022-11-08 11:41:29* Test Item Value Reference Range Interpretation Comme nts MAGNESIUM (test code = 9567098685) 1.9 mg/dL 1.7-2.4 Lab Interpretation (test cod e = 96354-2) [facility]2022-11-08 11:41:29* Test Item Value Reference Range Interpretation Comme nts PHOSPHORUS (test code = 6659461157) 3.5 mg/dL 2.5-5.0 Lab Interpretation (test cod e = 16306-9) Normal [facility]. METABOLIC PANEL (56329)2022-05-01 11:41:29* Test Item Value Reference Range Interpretation Comme nts NA (test code = 9149224802) 140 mmol/L 135-145 K (test code = 3458854904) 3.6 mmol/L 3.5-5.0 CL (test code = 4414710140) 109 mmol/L 98-108 H CO2 TOTAL (test code = 8504087821) 25 mmol/L 23-31 AGAP (test code = 7631991225) 2-16 BUN (test code = 1041805966) 10 mg/dL 7-23 GLUCOSE (test code = 5928910721) 105 mg/dL 70-110 CREATININE (test code = 5272225544) 0.77 mg/dL 0.60-1.25 TOTAL BILI (test code = 4431442198) 0.3 mg/dL 0.1-1.1 CALCIUM (test code = 8499352812) 8.4 mg/dL 8.6-10.6 L T PROTEIN (test code = 7289409551) 6.7 g/dL 6.3-8.2 ALBUMIN (test code = 6834773107) 3.5 g/dL 3.5-5.0 ALK PHOS (test code = 6807471633) 92 U/L 34-122 ALTv (test code = 1742-6) 62 U/L 5-50 H AST(SGOT) (test code = 3387670474) 69 U/L 13-40 H eGFR (test code = 2571540684) mL/min/1.73m2 MONTSERRAT (test code = MONTSERRAT) Association of Glomerular Filtration Rate (GFR) and Staging of Kidney Disease* + --+ --+ ------+| GFR (mL/min/1.73 m2) ?| With Kidney Damage ?| ?Without Kidney Damage+ --------+ --------+ +| ?>90 ?| ?Stage one ?| ? Normal ?+ ---+ ---+ -------+| ?60-89 ?| ?Stage two ?| ? Decreased GFR ? + --+ --+ ------+| ?30-59 ?| ?Stage three ?| ? Stage three ? + --+ --+ ------+| ?15-29 ?| ?Stage four ? | ? Stage four ?+ ---+ ---+ -------+| ?<15 (or dialysis) ? ?| ?Stage five ? | ? Stage five ?+ ---+ ---+ -------+ *Each stage assumes the associated GFR level has been in effect for at least three months. ?Stages 1 to 5, with or without kidney disease, indicate chronic kidney disease. Notes: Determination of stages one and two (with eGFR >59mL/min/1.73 m2) requires estimation of kidney damage for at least three months as defined by structural or functional abnormalities of the kidney, manifested by either:Pathological abnormalities or Markers of kidney damage (including abnormalities in the composition of the blood or urine or abnormalities in imaging tests). Lab Interpretation (test code = 98302-4) [facility] [id number] 21:10:23 LEUKOPENIA WITH ABSOLUTE NEUTROPENIA, LYMPHOPENIA, AND MONOCYTOPENIA. SEVERE NORMOCYTIC, NORMOCHROMIC ANEMIA. PLATELETS ARE UNREMARKABLE. THE ABOVE FINDINGS ARE CONSISTENT WITH TREATMENT FOR THE PATIENT'S KNOWN HISTORY OF BURKITT'S LYMPHOMA.[facility] with [id number] 12:47:19* Test Item Value Reference Range Interpretation Comme nts WBC (test code = 6690-2) See_Comment LL [[employer]] The system which generated this result transmitted reference range: 4.20 - 10.70 10*3/?L. The reference range was not used to interpret this result as normal/abnormal. RBC (test code = 789-8) See_Comment L [[employer]] The system which generated this result transmitted reference range: 4.26 - 5.52 10*6/?L. The reference range was not used to interpret this result as normal/abnormal. HGB (test code = 718-7) 7.0 g/dL 12.2-16.4 L HCT (test code = 4544-3) 20.4 % 38.4-49.3 L MCV (test code = 787-2) 91.1 fL 81.7-95.6 MCH (test code = 785-6) 31.3 pg 26.1-32.7 MCHC (test code = 786-4) 34.3 g/dL 31.2-35.0 RDW-SD (test code = 71299-1) 47.8 fL 38.5-51.6 RDW-CV (test code = 788-0) 14.7 % 12.1-15.4 PLT (test code = 777-3) See_Comment [Automated [employer] ge] The system which generated this result transmitted reference range: 150 - 328 10*3/?L. The reference range was not used to interpret this result as normal/abnormal. MPV (test code = 00147-5) 10.0 fL 9.8-13.0 NRBC/100 WBC (test code = 8167004566) See_Comment [Automated [employer]] The system which generated this result transmitted reference range: 0.0 - 10.0 /100 WBCs. The reference range was not used to interpret this result as normal/abnormal. NRBC x10^3 (test code = 1675211726) See_Comment [Automated messa ge] The system which generated this result transmitted reference range: 10*3/?L. The reference range was not used to interpret this result as normal/abnormal. SEG % (test code = 26840-2) 54 % 33-76 BAND % (test code = 65271-6) 2 % 0-1 H LYMPH % (test code = 69643-3) 32 % 14-54 MONO % (test code = 84157-4) 12 % 0-4 H ANC (test code = 753-4) 0.54 10*3/uL 1.99-6.95 L Lab Interpretation (test code = 05147-3) Abnormal [facility]. METABOLIC PANEL ([id number])2022-04-30 12:33:14* Test Item Value Reference Range Interpretation Comme nts NA (test code = 4128338870) 141 mmol/L 135-145 K (test code = 1873266423) 3.6 mmol/L 3.5-5.0 CL (test code = 7855753393) 110 mmol/L 98-108 H CO2 TOTAL (test code = 8293532790) 25 mmol/L 23-31 AGAP (test code = 0473772676) 2-16 BUN (test code = 8787984882) 9 mg/dL 7-23 GLUCOSE (test code = 4230432829) 93 mg/dL 70-110 CREATININE (test code = 2301587462) 0.72 mg/dL 0.60-1.25 TOTAL BILI (test code = 9781312408) 0.4 mg/dL 0.1-1.1 CALCIUM (test code = 5123328622) 8.6 mg/dL 8.6-10.6 T PROTEIN (test code = 5938553276) 6.7 g/dL 6.3-8.2 ALBUMIN (test code = 0049346935) 3.5 g/dL 3.5-5.0 ALK PHOS (test code = 8820099333) 90 U/L 34-122 ALTv (test code = 1742-6) 63 U/L 5-50 H AST(SGOT) (test code = 8755179055) 67 U/L 13-40 H eGFR (test code = 2524225116) mL/min/1.73m2 MONTSERRAT (test code = MONTSERRAT) Association of Glomerular Filtration Rate (GFR) and Staging of Kidney Disease* + --+ --+ ------+| GFR (mL/min/1.73 m2) ?| With Kidney Damage ?| ?Without Kidney Damage+ --------+ --------+ +| ?>90 ?| ?Stage one ?| ? Normal ?+ ---+ ---+ -------+| ?60-89 ?| ?Stage two ?| ? Decreased GFR ? + --+ --+ ------+| ?30-59 ?| ?Stage three ?| ? Stage three ? + --+ --+ ------+| ?15-29 ?| ?Stage four ? | ? Stage four ?+ ---+ ---+ -------+| ?<15 (or dialysis) ? ?| ?Stage five ? | ? Stage five ?+ ---+ ---+ -------+ *Each stage assumes the associated GFR level has been in effect for at least three months. ?Stages 1 to 5, with or without kidney disease, indicate chronic kidney disease. Notes: Determination of stages one and two (with eGFR >59mL/min/1.73 m2) requires estimation of kidney damage for at least three months as defined by structural or functional abnormalities of the kidney, manifested by either:Pathological abnormalities or Markers of kidney damage (including abnormalities in the composition of the blood or urine or abnormalities in imaging tests). Lab Interpretation (test code = 43822-0) [facility] [id number] 12:31:13* Test Item Value Reference Range Interpretation Comme nts MAGNESIUM (test code = 0904817054) 1.8 mg/dL 1.7-2.4 Lab Interpretation (test cod e = 33151-5) [facility] [id number] 12:31:13* Test Item Value Reference Range Interpretation Comme nts URIC ACID (test code = 3949305877) 5.0 mg/dL 3.6-8.0 Lab Interpretation (test cod e = 07932-5) [facility]2022-[facility]-07 12:31:13* Test Item Value Reference Range Interpretation Comme nts PHOSPHORUS (test code = 9849267458) 4.1 mg/dL 2.5-5.0 Lab Interpretation (test cod e = 90017-8) [facility] [id number] 12:22:35* Test Item Value Reference Range Interpretation Comme nts LDH (test code = 6609209024) 183 U/L 120-246 Lab Interpretation (test cod e = 27082-8) Normal [facility] WITH [id number] 04:39:31* Test Item Value Reference Range Interpretation Comme nts WBC (test code = 6690-2) See_Comment LL [Automated [employer]] The system which generated this result transmitted reference range: 4.20 - 10.70 10*3/?L. The reference range was not used to interpret this result as normal/abnormal. RBC (test code = 789-8) See_Comment L [Automated messa ge] The system which generated this result transmitted reference range: 4.26 - 5.52 10*6/?L. The reference range was not used to interpret this result as normal/abnormal. HGB (test code = 718-7) 7.1 g/dL 12.2-16.4 L HCT (test code = 4544-3) 20.7 % 38.4-49.3 L MCV (test code = 787-2) 90.8 fL 81.7-95.6 MCH (test code = 785-6) 31.1 pg 26.1-32.7 MCHC (test code = 786-4) 34.3 g/dL 31.2-35.0 RDW-SD (test code = 22485-1) 46.5 fL 38.5-51.6 RDW-CV (test code = 788-0) 14.6 % 12.1-15.4 PLT (test code = 777-3) See_Comment [Automated messa ge] The system which generated this result transmitted reference range: 150 - 328 10*3/?L. The reference range was not used to interpret this result as normal/abnormal. MPV (test code = 21072-2) 10.0 fL 9.8-13.0 NRBC/100 WBC (test code = 7690772511) See_Comment [Automated ASP64 ssage] The system which generated this result transmitted reference range: 0.0 - 10.0 /100 WBCs. The reference range was not used to interpret this result as normal/abnormal. NRBC x10^3 (test code = 4200769182) See_Comment [Automated messa ge] The system which generated this result transmitted reference range: 10*3/?L. The reference range was not used to interpret this result as normal/abnormal. GRAN MAT (NEUT) % (test code = 770-8) 55.7 % IMM GRAN % (test code = 9054435894) 0.00 % LYMPH % (test code = 736-9) 21.8 % MONO % (test code = 5905-5) 20.4 % EOS % (test code = 713-8) 0.0 % BASO % (test code = 706-2) 2.1 % GRAN MAT x10^3(ANC) (test code = 1370119718) 0.79 10*3/uL 1.99-6.95 L IMM GRAN x10^3 (test code = 0003008281) 0.00-0.06 LYMPH x10^3 (test code = 731-0) 0.31 10*3/uL 1.09-3.23 L MONO x10^3 (test code = 742-7) 0.29 10*3/uL 0.36-1.02 L EOS x10^3 (test code = 711-2) 0.06-0.53 L BASO x10^3 (test code = 704-7) 0.03 10*3/uL 0.01-0.09 Lab Interpretation (test code = 07043-2) Abnormal [facility] METABOLIC PANEL (NA, K, CL, CO2, GLUCOSE, BUN, CREATININE, CA)2022-04-30 04:30:29* Test Item Value Reference Range Interpretation Comme nts NA (test code = 7055098307) 141 mmol/L 135-145 K (test code = 1294685371) 3.5 mmol/L 3.5-5.0 CL (test code = 3190326505) 109 mmol/L 98-108 H CO2 TOTAL (test code = 6912345198) 24 mmol/L 23-31 AGAP (test code = 6882368192) 2-16 BUN (test code = 2696083310) 11 mg/dL 7-23 GLUCOSE (test code = 7699352345) 99 mg/dL 70-110 CREATININE (test code = 4100672954) 0.77 mg/dL 0.60-1.25 CALCIUM (test code = 0009584954) 8.8 mg/dL 8.6-10.6 eGFR (test code = 0091840519) mL/min/1.73m2 MONTSERRAT (test code = MONTSERRAT) Association of Glomerular Filtration Rate (GFR) and Staging of Kidney Disease* + --+ --+ ------+| GFR (mL/min/1.73 m2) ?| With Kidney Damage ?| ?Without Kidney Damage+ --------+ --------+ +| ?>90 ?| ?Stage one ?| ? Normal ?+ ---+ ---+ -------+| ?60-89 ?| ?Stage two ?| ? Decreased GFR ? + --+ --+ ------+| ?30-59 ?| ?Stage three ?| ? Stage three ? + --+ --+ ------+| ?15-29 ?| ?Stage four ? | ? Stage four ?+ ---+ ---+ -------+| ?<15 (or dialysis) ? ?| ?Stage five ? | ? Stage five ?+ ---+ ---+ -------+ *Each stage assumes the associated GFR level has been in effect for at least three months. ?Stages 1 to 5, with or without kidney disease, indicate chronic kidney disease. Notes: Determination of stages one and two (with eGFR >59mL/min/1.73 m2) requires estimation of kidney damage for at least three months as defined by structural or functional abnormalities of the kidney, manifested by either:Pathological abnormalities or Markers of kidney damage (including abnormalities in the composition of the blood or urine or abnormalities in imaging tests). Lab Interpretation (test code = 37778-7) [facility]91075[facility] (ALB,T.PRO,BILI T,BU/BC,ALT,AST,ALK PHOS)2022-04-30 04:30:29* Test Item Value Reference Range Interpretation Comme nts TOTAL BILI (test code = 4456612909) 0.4 mg/dL 0.1-1.1 BILI UNCON (test code = 9555806215) 0.1 mg/dL 0.1-1.1 BILI CONJ (test code = 4775863522) 0.0 mg/dL 0.0-0.3 T PROTEIN (test code = 1725500863) 6.6 g/dL 6.3-8.2 ALBUMIN (test code = 7613513494) 3.6 g/dL 3.5-5.0 ALK PHOS (test code = 1024812947) 109 U/L 34-122 ALTv (test code = 1742-6) 64 U/L 5-50 H AST(SGOT) (test code = 9423001058) 70 U/L 13-40 H Lab Interpretation (test cod e = 99787-0) [facility]normal [facility] IrvingProthrombin Time / [id number] 04:24:28* Test Item Value Reference Range Interpretation Comme nts PROTIME PATIENT (test code = 5964-2) See_Comment [Automated [employer]] The system which generated this result transmitted reference range: 10.1 - 12.6 Seconds. The reference range was not used to interpret this result as normal/abnormal. INR (test code = 6301-6) Normal INR <1.1; Warfarin Therapeutic range 2.0 to 3.0 or 2.5 to 3.5, depending upon the indications. Lab Interpretation (test code = 81586-2) [facility] IrvingaPTT2022-[facility]-07 04:24:28* Test Item Value Reference Range Interpretation Comme nts APTT Patient (test code = 3173-2) See_Comment H [Automated messa ge] The system which generated this result transmitted reference range: 26 - 36 Seconds. The reference range was not used to interpret this result as normal/abnormal. Lab Interpretation (test code = 30442-2) [facility]normal [facility] IrvingGAMMA [id number] 19:02:35* Test Item Value Reference Range Interpretation Comme nts GGT (test code = 8667980457) 164 U/L 13-58 H Lab Interpretation (test cod e = 02495-4) [facility]2022-11-02 19:02:35* Test Item Value Reference Range Interpretation Comme nts MAGNESIUM (test code = 5412343755) 1.7 mg/dL 1.7-2.4 Lab Interpretation (test cod e = 23152-6) [facility]2022-11-02 19:02:35* Test Item Value Reference Range Interpretation Comme nts PHOSPHORUS (test code = 0510499001) 3.7 mg/dL 2.5-5.0 Lab Interpretation (test cod e = 13872-2) [facility] [id number] 19:02:35* Test Item Value Reference Range Interpretation Comme nts URIC ACID (test code = 5604417963) 5.3 mg/dL 3.6-8.0 Lab Interpretation (test cod e = 21987-7) [facility] (59710) (ALB,T.PRO,BILI T,BU/BC,ALT,AST,ALK PHOS)2022-04-25 19:02:35* Test Item Value Reference Range Interpretation Comme nts TOTAL BILI (test code = 6618879143) 0.5 mg/dL 0.1-1.1 BILI UNCON (test code = 5966578349) 0.3 mg/dL 0.1-1.1 BILI CONJ (test code = 7887787314) 0.0 mg/dL 0.0-0.3 T PROTEIN (test code = 7541003174) 7.7 g/dL 6.3-8.2 ALBUMIN (test code = 7317972824) 4.3 g/dL 3.5-5.0 ALK PHOS (test code = 7955022074) 120 U/L 34-122 ALTv (test code = 1742-6) 86 U/L 5-50 H AST(SGOT) (test code = 8457324542) 73 U/L 13-40 H Lab Interpretation (test cod e = 44781-1) [facility]normal [facility] IrvingGAMMA [id number] 19:02:35* Test Item Value Reference Range Interpretation Comme nts GGT (test code = 4842925236) 164 U/L 13-58 H Lab Interpretation (test cod e = 59127-7) [facility]2022-11-02 19:02:35* Test Item Value Reference Range Interpretation Comme nts MAGNESIUM (test code = 4852245779) 1.7 mg/dL 1.7-2.4 Lab Interpretation (test cod e = 27644-6) [facility]2022-11-02 19:02:35* Test Item Value Reference Range Interpretation Comme nts PHOSPHORUS (test code = 2787051914) 3.7 mg/dL 2.5-5.0 Lab Interpretation (test cod e = 87114-2) [facility] [id number] 19:02:35* Test Item Value Reference Range Interpretation Comme nts URIC ACID (test code = 3120687697) 5.3 mg/dL 3.6-8.0 Lab Interpretation (test cod e = 63948-1) [facility] (03648) (ALB,T.PRO,BILI T,BU/BC,ALT,AST,ALK PHOS)2022-04-25 19:02:35* Test Item Value Reference Range Interpretation Comme nts TOTAL BILI (test code = 7797706240) 0.5 mg/dL 0.1-1.1 BILI UNCON (test code = 2729453321) 0.3 mg/dL 0.1-1.1 BILI CONJ (test code = 8029137919) 0.0 mg/dL 0.0-0.3 T PROTEIN (test code = 8395307001) 7.7 g/dL 6.3-8.2 ALBUMIN (test code = 4208889328) 4.3 g/dL 3.5-5.0 ALK PHOS (test code = 8595530012) 120 U/L 34-122 ALTv (test code = 1742-6) 86 U/L 5-50 H AST(SGOT) (test code = 4855967323) 73 U/L 13-40 H Lab Interpretation (test cod e = 46384-8) Abnormal [facility] METABOLIC PANEL (NA, K, CL, CO2, GLUCOSE, BUN, CREATININE, CA)2022-04-25 19:02:34* Test Item Value Reference Range Interpretation Comme nts NA (test code = 1438768248) 145 mmol/L 135-145 K (test code = 5538930691) 4.2 mmol/L 3.5-5.0 CL (test code = 7024235363) 105 mmol/L 98-108 CO2 TOTAL (test code = 8611559583) 25 mmol/L 23-31 AGAP (test code = 0834485550) 2-16 BUN (test code = 0908037552) 12 mg/dL 7-23 GLUCOSE (test code = 6879206960) 103 mg/dL 70-110 CREATININE (test code = 0540169034) 0.95 mg/dL 0.60-1.25 CALCIUM (test code = 7227657211) 9.9 mg/dL 8.6-10.6 eGFR (test code = 6639868723) mL/min/1.73m2 MONTSERRAT (test code = MONTSERRAT) Association of Glomerular Filtration Rate (GFR) and Staging of Kidney Disease* + + +- +| GFR (mL/min/1.73 m2) ?| With Kidney Damage ?| ?Without Kidney Damage+ ------+ ----+ ------+| ?>90 ?| ?Stage one ?| ? Normal ?+ -+ + -+| ?60-89 ?| ?Stage two ?| ? Decreased GFR ? + + +- +| ?30-59 ?| ?Stage three ?| ? Stage three ? + + +- +| ?15-29 ?| ?Stage four ? | ? Stage four ?+ -+ + -+| ?<15 (or dialysis) ? ?| ?Stage five ? | ? Stage five ?+ -+ + -+ *Each stage assumes the associated GFR level has been in effect for at least three months. ?Stages 1 to 5, with or without kidney disease, indicate chronic kidney disease. Notes: Determination of stages one and two (with eGFR >59mL/min/1.73 m2) requires estimation of kidney damage for at least three months as defined by structural or functional abnormalities of the kidney, manifested by either:Pathological abnormalities or Markers of kidney damage (including abnormalities in the composition of the blood or urine or abnormalities in imaging tests). [facility] METABOLIC PANEL (NA, K, CL, CO2, GLUCOSE, BUN, CREATININE, CA)2022-04-25 19:02:34* Test Item Value Reference Range Interpretation Comme nts NA (test code = 6788026883) 145 mmol/L 135-145 K (test code = 3840114255) 4.2 mmol/L 3.5-5.0 CL (test code = 4966043411) 105 mmol/L 98-108 CO2 TOTAL (test code = 3268535086) 25 mmol/L 23-31 AGAP (test code = 8162651062) 2-16 BUN (test code = 4023235545) 12 mg/dL 7-23 GLUCOSE (test code = 0528376850) 103 mg/dL 70-110 CREATININE (test code = 0890942165) 0.95 mg/dL 0.60-1.25 CALCIUM (test code = 4383076183) 9.9 mg/dL 8.6-10.6 eGFR (test code = 5082264775) mL/min/1.73m2 MONTSERRAT (test code = MONTSERRAT) Association of Glomerular Filtration Rate (GFR) and Staging of Kidney Disease* + + +- +| GFR (mL/min/1.73 m2) ?| With Kidney Damage ?| ?Without Kidney Damage+ ------+ ----+ ------+| ?>90 ?| ?Stage one ?| ? Normal ?+ -+ + -+| ?60-89 ?| ?Stage two ?| ? Decreased GFR ? + + +- +| ?30-59 ?| ?Stage three ?| ? Stage three ? + + +- +| ?15-29 ?| ?Stage four ? | ? Stage four ?+ -+ + -+| ?<15 (or dialysis) ? ?| ?Stage five ? | ? Stage five ?+ -+ + -+ *Each stage assumes the associated GFR level has been in effect for at least three months. ?Stages 1 to 5, with or without kidney disease, indicate chronic kidney disease. Notes: Determination of stages one and two (with eGFR >59mL/min/1.73 m2) requires estimation of kidney damage for at least three months as defined by structural or functional abnormalities of the kidney, manifested by either:Pathological abnormalities or Markers of kidney damage (including abnormalities in the composition of the blood or urine or abnormalities in imaging tests). [facility] [id number] 19:00:29* Test Item Value Reference Range Interpretation Comme nts LDH (test code = 7865534549) 215 U/L 120-246 Lab Interpretation (test cod e = 33059-0) Normal [facility] [id number] 19:00:29* Test Item Value Reference Range Interpretation Comme nts LDH (test code = 4654233406) 215 U/L 120-246 Lab Interpretation (test cod e = 25862-5) Normal [facility] WITH [id number] 18:39:44* Test Item Value Reference Range Interpretation Comme nts WBC (test code = 6690-2) See_Comment LL [Automated [employer]] The system which generated this result transmitted reference range: 4.20 - 10.70 10*3/?L. The reference range was not used to interpret this result as normal/abnormal. RBC (test code = 789-8) See_Comment L [Automated [employer]] The system which generated this result transmitted reference range: 4.26 - 5.52 10*6/?L. The reference range was not used to interpret this result as normal/abnormal. HGB (test code = 718-7) 8.3 g/dL 12.2-16.4 L HCT (test code = 4544-3) 24.7 % 38.4-49.3 L MCV (test code = 787-2) 91.1 fL 81.7-95.6 MCH (test code = 785-6) 30.6 pg 26.1-32.7 MCHC (test code = 786-4) 33.6 g/dL 31.2-35.0 RDW-SD (test code = 37965-4) 45.9 fL 38.5-51.6 RDW-CV (test code = 788-0) 13.8 % 12.1-15.4 PLT (test code = 777-3) See_Comment L [Automated messa ge] The system which generated this result transmitted reference range: 150 - 328 10*3/?L. The reference range was not used to interpret this result as normal/abnormal. MPV (test code = 70752-7) 10.6 fL 9.8-13.0 NRBC/100 WBC (test code = 5324871412) See_Comment [Automated [employer] ssage] The system which generated this result transmitted reference range: 0.0 - 10.0 /100 WBCs. The reference range was not used to interpret this result as normal/abnormal. NRBC x10^3 (test code = 3731723891) See_Comment [Automated messa ge] The system which generated this result transmitted reference range: 10*3/?L. The reference range was not used to interpret this result as normal/abnormal. GRAN MAT (NEUT) % (test code = 770-8) 61.8 % IMM GRAN % (test code = 6298736083) 0.60 % LYMPH % (test code = 736-9) 21.2 % MONO % (test code = 5905-5) 15.2 % EOS % (test code = 713-8) 0.6 % BASO % (test code = 706-2) 0.6 % GRAN MAT x10^3(ANC) (test code = 2538956758) 1.02 10*3/uL 1.99-6.95 L IMM GRAN x10^3 (test code = 0280749590) 0.00-0.06 LYMPH x10^3 (test code = 731-0) 0.35 10*3/uL 1.09-3.23 L MONO x10^3 (test code = 742-7) 0.25 10*3/uL 0.36-1.02 L EOS x10^3 (test code = 711-2) 0.06-0.53 L BASO x10^3 (test code = 704-7) 0.01-0.09 Lab Interpretation (test code = 45673-7) Abnormal [facility] WITH [id number] 18:39:44* Test Item Value Reference Range Interpretation Comme nts WBC (test code = 6690-2) See_Comment LL [Automated messa ge] The system which generated this result transmitted reference range: 4.20 - 10.70 10*3/?L. The reference range was not used to interpret this result as normal/abnormal. RBC (test code = 789-8) See_Comment L [Automated messa ge] The system which generated this result transmitted reference range: 4.26 - 5.52 10*6/?L. The reference range was not used to interpret this result as normal/abnormal. HGB (test code = 718-7) 8.3 g/dL 12.2-16.4 L HCT (test code = 4544-3) 24.7 % 38.4-49.3 L MCV (test code = 787-2) 91.1 fL 81.7-95.6 MCH (test code = 785-6) 30.6 pg 26.1-32.7 MCHC (test code = 786-4) 33.6 g/dL 31.2-35.0 RDW-SD (test code = 15584-6) 45.9 fL 38.5-51.6 RDW-CV (test code = 788-0) 13.8 % 12.1-15.4 PLT (test code = 777-3) See_Comment L [Automated messa ge] The system which generated this result transmitted reference range: 150 - 328 10*3/?L. The reference range was not used to interpret this result as normal/abnormal. MPV (test code = 28358-7) 10.6 fL 9.8-13.0 NRBC/100 WBC (test code = 6866226721) See_Comment [Automated me ssage] The system which generated this result transmitted reference range: 0.0 - 10.0 /100 WBCs. The reference range was not used to interpret this result as normal/abnormal. NRBC x10^3 (test code = 9759516480) See_Comment [Automated messa ge] The system which generated this result transmitted reference range: 10*3/?L. The reference range was not used to interpret this result as normal/abnormal. GRAN MAT (NEUT) % (test code = 770-8) 61.8 % IMM GRAN % (test code = 5569988987) 0.60 % LYMPH % (test code = 736-9) 21.2 % MONO % (test code = 5905-5) 15.2 % EOS % (test code = 713-8) 0.6 % BASO % (test code = 706-2) 0.6 % GRAN MAT x10^3(ANC) (test code = 8556712694) 1.02 10*3/uL 1.99-6.95 L IMM GRAN x10^3 (test code = 9388000412) 0.00-0.06 LYMPH x10^3 (test code = 731-0) 0.35 10*3/uL 1.09-3.23 L MONO x10^3 (test code = 742-7) 0.25 10*3/uL 0.36-1.02 L EOS x10^3 (test code = 711-2) 0.06-0.53 L BASO x10^3 (test code = 704-7) 0.01-0.09 Lab Interpretation (test code = 43143-5) Abnormal [facility] WITH [id number] 19:30:13* Test Item Value Reference Range Interpretation Comme nts WBC (test code = 6690-2) See_Comment LL [Automated messa ge] The system which generated this result transmitted reference range: 4.20 - 10.70 10*3/?L. The reference range was not used to interpret this result as normal/abnormal. RBC (test code = 789-8) See_Comment L [Automated messa ge] The system which generated this result transmitted reference range: 4.26 - 5.52 10*6/?L. The reference range was not used to interpret this result as normal/abnormal. HGB (test code = 718-7) 8.9 g/dL 12.2-16.4 L HCT (test code = 4544-3) 25.8 % 38.4-49.3 L MCV (test code = 787-2) 89.9 fL 81.7-95.6 MCH (test code = 785-6) 31.0 pg 26.1-32.7 MCHC (test code = 786-4) 34.5 g/dL 31.2-35.0 RDW-SD (test code = 27797-2) 45.3 fL 38.5-51.6 RDW-CV (test code = 788-0) 13.8 % 12.1-15.4 PLT (test code = 777-3) See_Comment L [Automated [employer]] The system which generated this result transmitted reference range: 150 - 328 10*3/?L. The reference range was not used to interpret this result as normal/abnormal. MPV (test code = 18752-7) 10.9 fL 9.8-13.0 IPF % (test code = 6319426936) 7.2 % 1.2-10.7 Platelet count measured by fluorescence method. NRBC/100 WBC (test code = 9719992761) See_Comment [Automated [employer] ssage] The system which generated this result transmitted reference range: 0.0 - 10.0 /100 WBCs. The reference range was not used to interpret this result as normal/abnormal. NRBC x10^3 (test code = 2706419726) See_Comment [Automated [employer]] The system which generated this result transmitted reference range: 10*3/?L. The reference range was not used to interpret this result as normal/abnormal. GRAN MAT (NEUT) % (test code = 770-8) 25.6 % IMM GRAN % (test code = 1573169404) 0.00 % LYMPH % (test code = 736-9) 46.8 % MONO % (test code = 5905-5) 23.4 % EOS % (test code = 713-8) 2.1 % BASO % (test code = 706-2) 2.1 % GRAN MAT x10^3(ANC) (test code = 0459738351) 0.12 10*3/uL 1.99-6.95 L IMM GRAN x10^3 (test code = 3964391824) 0.00-0.06 LYMPH x10^3 (test code = 731-0) 0.22 10*3/uL 1.09-3.23 L MONO x10^3 (test code = 742-7) 0.11 10*3/uL 0.36-1.02 L EOS x10^3 (test code = 711-2) 0.06-0.53 L BASO x10^3 (test code = 704-7) 0.01-0.09 DOHLE BODIES (test code = 7792-5) Present A Lab Interpretation (test code = 06670-5) Abnormal [facility] WITH [id number] 19:30:13* Test Item Value Reference Range Interpretation Comme nts WBC (test code = 6690-2) See_Comment LL [Automated messa ge] The system which generated this result transmitted reference range: 4.20 - 10.70 10*3/?L. The reference range was not used to interpret this result as normal/abnormal. RBC (test code = 789-8) See_Comment L [Automated messa ge] The system which generated this result transmitted reference range: 4.26 - 5.52 10*6/?L. The reference range was not used to interpret this result as normal/abnormal. HGB (test code = 718-7) 8.9 g/dL 12.2-16.4 L HCT (test code = 4544-3) 25.8 % 38.4-49.3 L MCV (test code = 787-2) 89.9 fL 81.7-95.6 MCH (test code = 785-6) 31.0 pg 26.1-32.7 MCHC (test code = 786-4) 34.5 g/dL 31.2-35.0 RDW-SD (test code = 89336-0) 45.3 fL 38.5-51.6 RDW-CV (test code = 788-0) 13.8 % 12.1-15.4 PLT (test code = 777-3) See_Comment L [Automated messa ge] The system which generated this result transmitted reference range: 150 - 328 10*3/?L. The reference range was not used to interpret this result as normal/abnormal. MPV (test code = 61719-2) 10.9 fL 9.8-13.0 IPF % (test code = 3329893238) 7.2 % 1.2-10.7 Platelet count measured by fluorescence method. NRBC/100 WBC (test code = 3542605721) See_Comment [Automated me ssage] The system which generated this result transmitted reference range: 0.0 - 10.0 /100 WBCs. The reference range was not used to interpret this result as normal/abnormal. NRBC x10^3 (test code = 7572253616) See_Comment [Automated messa ge] The system which generated this result transmitted reference range: 10*3/?L. The reference range was not used to interpret this result as normal/abnormal. GRAN MAT (NEUT) % (test code = 770-8) 25.6 % IMM GRAN % (test code = 5739648039) 0.00 % LYMPH % (test code = 736-9) 46.8 % MONO % (test code = 5905-5) 23.4 % EOS % (test code = 713-8) 2.1 % BASO % (test code = 706-2) 2.1 % GRAN MAT x10^3(ANC) (test code = 0525375861) 0.12 10*3/uL 1.99-6.95 L IMM GRAN x10^3 (test code = 0453293634) 0.00-0.06 LYMPH x10^3 (test code = 731-0) 0.22 10*3/uL 1.09-3.23 L MONO x10^3 (test code = 742-7) 0.11 10*3/uL 0.36-1.02 L EOS x10^3 (test code = 711-2) 0.06-0.53 L BASO x10^3 (test code = 704-7) 0.01-0.09 DOHLE BODIES (test code = 7792-5) Present A Lab Interpretation (test code = 61462-6) [facility] [id number] 19:27:40* Test Item Value Reference Range Interpretation Comme nts LDH (test code = 0306649328) 259 U/L 120-246 H Lab Interpretation (test cod e = 95056-0) [facility] [id number] 19:27:40* Test Item Value Reference Range Interpretation Comme nts LDH (test code = 8678417939) 259 U/L 120-246 H Lab Interpretation (test cod e = 07578-3) [facility] [id number] 18:16:27* Test Item Value Reference Range Interpretation Comme nts URIC ACID (test code = 7114301381) 7.4 mg/dL 3.6-8.0 Lab Interpretation (test cod e = 71847-9) [facility] [id number] 18:16:27* Test Item Value Reference Range Interpretation Comme [facility] URIC ACID (test code = 5878596482) 7.4 mg/dL 3.6-8.0 Lab Interpretation (test cod e = 92072-2) [facility] (25708)2022-04-20 18:16:26* Test Item Value Reference Range Interpretation Comme nts NA (test code = 4708567544) 137 mmol/L 135-145 K (test code = 7963878626) 4.1 mmol/L 3.5-5.0 CL (test code = 8441286143) 101 mmol/L 98-108 CO2 TOTAL (test code = 8015806180) 25 mmol/L 23-31 AGAP (test code = 4654782459) 2-16 BUN (test code = 2688742090) 17 mg/dL 7-23 GLUCOSE (test code = 2220563473) 98 mg/dL 70-110 CREATININE (test code = 0096674308) 1.18 mg/dL 0.60-1.25 TOTAL BILI (test code = 6576994779) 0.9 mg/dL 0.1-1.1 CALCIUM (test code = 0235800215) 11.4 mg/dL 8.6-10.6 H T PROTEIN (test code = 2998466944) 8.4 g/dL 6.3-8.2 H ALBUMIN (test code = 1166029614) 4.3 g/dL 3.5-5.0 ALK PHOS (test code = 6031268893) 113 U/L 34-122 ALTv (test code = 1742-6) 91 U/L 5-50 H AST(SGOT) (test code = 8857141023) 60 U/L 13-40 H eGFR (test code = 1998352801) mL/min/1.73m2 MONTSERRAT (test code = MONTSERRAT) Association of Glomerular Filtration Rate (GFR) and Staging of Kidney Disease* + --+ --+ ------+| GFR (mL/min/1.73 m2) ?| With Kidney Damage ?| ?Without Kidney Damage+ --------+ --------+ +| ?>90 ?| ?Stage one ?| ? Normal ?+ ---+ ---+ -------+| ?60-89 ?| ?Stage two ?| ? Decreased GFR ? + --+ --+ ------+| ?30-59 ?| ?Stage three ?| ? Stage three ? + --+ --+ ------+| ?15-29 ?| ?Stage four ? | ? Stage four ?+ ---+ ---+ -------+| ?<15 (or dialysis) ? ?| ?Stage five ? | ? Stage five ?+ ---+ ---+ -------+ *Each stage assumes the associated GFR level has been in effect for at least three months. ?Stages 1 to 5, with or without kidney disease, indicate chronic kidney disease. Notes: Determination of stages one and two (with eGFR >59mL/min/1.73 m2) requires estimation of kidney damage for at least three months as defined by structural or functional abnormalities of the kidney, manifested by either:Pathological abnormalities or Markers of kidney damage (including abnormalities in the composition of the blood or urine or abnormalities in imaging tests). Lab Interpretation (test code = 24312-7) Abnormal [facility]. METABOLIC PANEL (52043)2022-04-20 18:16:26* Test Item Value Reference Range Interpretation Comme nts NA (test code = 4503771699) 137 mmol/L 135-145 K (test code = 2174434956) 4.1 mmol/L 3.5-5.0 CL (test code = 4019149941) 101 mmol/L 98-108 CO2 TOTAL (test code = 0889433173) 25 mmol/L 23-31 AGAP (test code = 5610729994) 2-16 BUN (test code = 9187398964) 17 mg/dL 7-23 GLUCOSE (test code = 2275687993) 98 mg/dL 70-110 CREATININE (test code = 3456518062) 1.18 mg/dL 0.60-1.25 TOTAL BILI (test code = 6881358023) 0.9 mg/dL 0.1-1.1 CALCIUM (test code = 4235690322) 11.4 mg/dL 8.6-10.6 H T PROTEIN (test code = 7964036699) 8.4 g/dL 6.3-8.2 H ALBUMIN (test code = 2009208240) 4.3 g/dL 3.5-5.0 ALK PHOS (test code = 7832821394) 113 U/L 34-122 ALTv (test code = 1742-6) 91 U/L 5-50 H AST(SGOT) (test code = 0997305991) 60 U/L 13-40 H eGFR (test code = 0621499334) mL/min/1.73m2 MONTSERRAT (test code = MONTSERRAT) Association of Glomerular Filtration Rate (GFR) and Staging of Kidney Disease* + --+ --+ ------+| GFR (mL/min/1.73 m2) ?| With Kidney Damage ?| ?Without Kidney Damage+ --------+ --------+ +| ?>90 ?| ?Stage one ?| ? Normal ?+ ---+ ---+ -------+| ?60-89 ?| ?Stage two ?| ? Decreased GFR ? + --+ --+ ------+| ?30-59 ?| ?Stage three ?| ? Stage three ? + --+ --+ ------+| ?15-29 ?| ?Stage four ? | ? Stage four ?+ ---+ ---+ -------+| ?<15 (or dialysis) ? ?| ?Stage five ? | ? Stage five ?+ ---+ ---+ -------+ *Each stage assumes the associated GFR level has been in effect for at least three months. ?Stages 1 to 5, with or without kidney disease, indicate chronic kidney disease. Notes: Determination of stages one and two (with eGFR >59mL/min/1.73 m2) requires estimation of kidney damage for at least three months as defined by structural or functional abnormalities of the kidney, manifested by either:Pathological abnormalities or Markers of kidney damage (including abnormalities in the composition of the blood or urine or abnormalities in imaging tests). Lab Interpretation (test code = 51937-7) [facility] [id number] 12:13:43* Test Item Value Reference Range Interpretation Comme nts IONIZED CA (test code = 5191381277) 5.60 mg/dL 4.5-5.3 H PH SERUM (test code = 1150478133) 7.35-7.45 Lab Interpretation (test cod e = 95318-1) Abnormal [facility] WITH [id number] 12:04:04* Test Item Value Reference Range Interpretation Comme nts WBC (test code = 6690-2) See_Comment L [Automated messa ge] The system which generated this result transmitted reference range: 4.20 - 10.70 10*3/?L. The reference range was not used to interpret this result as normal/abnormal. RBC (test code = 789-8) See_Comment L [Automated messa ge] The system which generated this result transmitted reference range: 4.26 - 5.52 10*6/?L. The reference range was not used to interpret this result as normal/abnormal. HGB (test code = 718-7) 7.8 g/dL 12.2-16.4 L HCT (test code = 4544-3) 22.8 % 38.4-49.3 L MCV (test code = 787-2) 92.3 fL 81.7-95.6 MCH (test code = 785-6) 31.6 pg 26.1-32.7 MCHC (test code = 786-4) 34.2 g/dL 31.2-35 RDW-SD (test code = 83874-3) 50.0 fL 38.5-51.6 RDW-CV (test code = 788-0) 14.6 % 12.1-15.4 PLT (test code = 777-3) See_Comment L [Automated messa ge] The system which generated this result transmitted reference range: 150 - 328 10*3/?L. The reference range was not used to interpret this result as normal/abnormal. MPV (test code = 98471-6) 10.3 fL 9.8-13 IPF % (test code = 6306923358) 3.1 % 1.2-10.7 Platelet count measured by fluorescence method. NRBC/100 WBC (test code = 3877376677) See_Comment [Automated me ssage] The system which generated this result transmitted reference range: 0.0 - 10.0 /100 WBCs. The reference range was not used to interpret this result as normal/abnormal. NRBC x10^3 (test code = 9226020940) See_Comment [Automated messa ge] The system which generated this result transmitted reference range: 10*3/?L. The reference range was not used to interpret this result as normal/abnormal. GRAN MAT (NEUT) % (test code = 770-8) 78.3 % IMM GRAN % (test code = 9672405442) 9.60 % LYMPH % (test code = 736-9) 7.2 % MONO % (test code = 5905-5) 1.7 % EOS % (test code = 713-8) 2.7 % BASO % (test code = 706-2) 0.5 % GRAN MAT x10^3(ANC) (test code = 2817644461) 3.17 10*3/uL 1.99-6.95 IMM GRAN x10^3 (test code = 4826610001) 0.39 10*3/uL 0-0.06 H LYMPH x10^3 (test code = 731-0) 0.29 10*3/uL 1.09-3.23 L MONO x10^3 (test code = 742-7) 0.07 10*3/uL 0.36-1.02 L EOS x10^3 (test code = 711-2) 0.11 10*3/uL 0.06-0.53 BASO x10^3 (test code = 704-7) 0.01-0.09 Lab Interpretation (test code = 23592-5) [facility] 11:36:15* Test Item Value Reference Range Interpretation Comme nts PHOSPHORUS (test code = 9918169032) 3.4 mg/dL 2.5-5 Lab Interpretation (test cod e = 71237-8) [facility]-23 11:36:15* Test Item Value Reference Range Interpretation Comme nts MAGNESIUM (test code = 6758973268) 1.5 mg/dL 1.7-2.4 L Lab Interpretation (test cod e = 47584-4) [facility] (NA, K, CL, CO2, GLUCOSE, BUN, CREATININE, CA)2022-04-15 11:36:15* Test Item Value Reference Range Interpretation Comme nts NA (test code = 6819649761) 135 mmol/L 135-145 K (test code = 3740420811) 3.8 mmol/L 3.5-5 CL (test code = 6098820515) 103 mmol/L 98-108 CO2 TOTAL (test code = 3916781874) 30 mmol/L 23-31 AGAP (test code = 3929342199) 2-16 BUN (test code = 4844969109) 16 mg/dL 7-23 GLUCOSE (test code = 9800025388) 98 mg/dL 70-110 CREATININE (test code = 2838536778) 0.69 mg/dL 0.6-1.25 CALCIUM (test code = 4968406093) 10.1 mg/dL 8.6-10.6 eGFR (test code = 8672482449) mL/min/1.73m2 MONTSERRAT (test code = MONTSERRAT) Association of Glomerular Filtration Rate (GFR) and Staging of Kidney Disease* + + +- +| GFR (mL/min/1.73 m2) ?| With Kidney Damage ?| ?Without Kidney Damage+ ------+ ----+ ------+| ?>90 ?| ?Stage one ?| ? Normal ?+ -+ + -+| ?60-89 ?| ?Stage two ?| ? Decreased GFR ? + + +- +| ?30-59 ?| ?Stage three ?| ? Stage three ? + + +- +| ?15-29 ?| ?Stage four ? | ? Stage four ?+ -+ + -+| ?<15 (or dialysis) ? ?| ?Stage five ? | ? Stage five ?+ -+ + -+ *Each stage assumes the associated GFR level has been in effect for at least three months. ?Stages 1 to 5, with or without kidney disease, indicate chronic kidney disease. Notes: Determination of stages one and two (with eGFR >59mL/min/1.73 m2) requires estimation of kidney damage for at least three months as defined by structural or functional abnormalities of the kidney, manifested by either:Pathological abnormalities or Markers of kidney damage (including abnormalities in the composition of the blood or urine or abnormalities in imaging tests). [facility] [id number] 11:36:15* Test Item Value Reference Range Interpretation Comme [facility] URIC ACID (test code = 8889934595) 5.5 mg/dL 3.6-8 Lab Interpretation (test cod e = 99271-4) [facility] [id number] 11:36:15* Test Item Value Reference Range Interpretation Comme [facility] LDH (test code = 4273102630) 648 U/L 120-246 H Lab Interpretation (test cod e = 40867-3) Abnormal [facility] WITH [id number] 14:27:07* Test Item Value Reference Range Interpretation Comme [facility] WBC (test code = 6690-2) See_Comment LL [Automated [employer]] The system which generated this result transmitted reference range: 4.20 - 10.70 10*3/?L. The reference range was not used to interpret this result as normal/abnormal. RBC (test code = 789-8) See_Comment L [Automated [employer]] The system which generated this result transmitted reference range: 4.26 - 5.52 10*6/?L. The reference range was not used to interpret this result as normal/abnormal. HGB (test code = 718-7) 7.9 g/dL 12.2-16.4 L HCT (test code = 4544-3) 23.6 % 38.4-49.3 L MCV (test code = 787-2) 94.0 fL 81.7-95.6 MCH (test code = 785-6) 31.5 pg 26.1-32.7 MCHC (test code = 786-4) 33.5 g/dL 31.2-35 RDW-SD (test code = 26291-7) 53.1 fL 38.5-51.6 H RDW-CV (test code = 788-0) 15.4 % 12.1-15.4 PLT (test code = 777-3) See_Comment L [Automated [employer]] The system which generated this result transmitted reference range: 150 - 328 10*3/?L. The reference range was not used to interpret this result as normal/abnormal. MPV (test code = 93986-9) 10.5 fL 9.8-13 IPF % (test code = 9174442508) 3.4 % 1.2-10.7 Platelet count measured by fluorescence method. NRBC/100 WBC (test code = 5373412121) See_Comment [Automated [employer] ssage] The system which generated this result transmitted reference range: 0.0 - 10.0 /100 WBCs. The reference range was not used to interpret this result as normal/abnormal. NRBC x10^3 (test code = 5740942441) See_Comment [Automated [employer]] The system which generated this result transmitted reference range: 10*3/?L. The reference range was not used to interpret this result as normal/abnormal. GRAN MAT (NEUT) % (test code = 770-8) 72.1 % IMM GRAN % (test code = 5491901978) 0.60 % LYMPH % (test code = 736-9) 18.2 % MONO % (test code = 5905-5) 5.1 % EOS % (test code = 713-8) 4.0 % BASO % (test code = 706-2) 0.0 % GRAN MAT x10^3(ANC) (test code = 9240693461) 1.27 10*3/uL 1.99-6.95 L IMM GRAN x10^3 (test code = 6841524595) 0-0.06 LYMPH x10^3 (test code = 731-0) 0.32 10*3/uL 1.09-3.23 L MONO x10^3 (test code = 742-7) 0.09 10*3/uL 0.36-1.02 L EOS x10^3 (test code = 711-2) 0.07 10*3/uL 0.06-0.53 BASO x10^3 (test code = 704-7) 0.01-0.09 Lab Interpretation (test code = 92157-0) Abnormal [facility] METABOLIC PANEL (NA, K, CL, CO2, GLUCOSE, BUN, CREATININE, CA)2022-04-14 10:59:34* Test Item Value Reference Range Interpretation Comme nts NA (test code = 4876962107) 137 mmol/L 135-145 K (test code = 9494636244) 4.1 mmol/L 3.5-5 CL (test code = 7089868841) 107 mmol/L 98-108 CO2 TOTAL (test code = 3607534466) 27 mmol/L 23-31 AGAP (test code = 5866647657) 2-16 BUN (test code = 3741162864) 19 mg/dL 7-23 GLUCOSE (test code = 7781763266) 96 mg/dL 70-110 CREATININE (test code = 3783759134) 0.83 mg/dL 0.6-1.25 CALCIUM (test code = 1179892869) 9.4 mg/dL 8.6-10.6 eGFR (test code = 6581750448) mL/min/1.73m2 MONTSERRAT (test code = MONTSERRAT) Association of Glomerular Filtration Rate (GFR) and Staging of Kidney Disease* + + +- +| GFR (mL/min/1.73 m2) ?| With Kidney Damage ?| ?Without Kidney Damage+ ------+ ----+ ------+| ?>90 ?| ?Stage one ?| ? Normal ?+ -+ + -+| ?60-89 ?| ?Stage two ?| ? Decreased GFR ? + + +- +| ?30-59 ?| ?Stage three ?| ? Stage three ? + + +- +| ?15-29 ?| ?Stage four ? | ? Stage four ?+ -+ + -+| ?<15 (or dialysis) ? ?| ?Stage five ? | ? Stage five ?+ -+ + -+ *Each stage assumes the associated GFR level has been in effect for at least three months. ?Stages 1 to 5, with or without kidney disease, indicate chronic kidney disease. Notes: Determination of stages one and two (with eGFR >59mL/min/1.73 m2) requires estimation of kidney damage for at least three months as defined by structural or functional abnormalities of the kidney, manifested by either:Pathological abnormalities or Markers of kidney damage (including abnormalities in the composition of the blood or urine or abnormalities in imaging tests). [facility] [id number] 10:59:34* Test Item Value Reference Range Interpretation Comme [facility] URIC ACID (test code = 3001945370) 6.7 mg/dL 3.6-8 Lab Interpretation (test cod e = 82512-6) Normal [facility] [id number] 10:59:34* Test Item Value Reference Range Interpretation Comme nts LDH (test code = 9083468225) 784 U/L 120-246 H Lab Interpretation (test cod e = 88604-2) Abnormal [facility] IrvingCBC WITHOUT [id number] 10:53:21* Test Item Value Reference Range Interpretation Comme nts WBC (test code = 6690-2) See_Comment LL [Automated [employer]] The system which generated this result transmitted reference range: 4.20 - 10.70 10*3/?L. The reference range was not used to interpret this result as normal/abnormal. RBC (test code = 789-8) See_Comment L [Automated message] The system which generated this result transmitted reference range: 4.26 - 5.52 10*6/?L. The reference range was not used to interpret this result as normal/abnormal. HGB (test code = 718-7) 7.9 g/dL 12.2-16.4 L HCT (test code = 4544-3) 23.8 % 38.4-49.3 L MCH (test code = 785-6) 30.6 pg 26.1-32.7 MCV (test code = 787-2) 92.2 fL 81.7-95.6 MCHC (test code = 786-4) 33.2 g/dL 31.2-35 PLT (test code = 777-3) See_Comment L [Automated message] The system which generated this result transmitted reference range: 150 - 328 10*3/?L. The reference range was not used to interpret this result as normal/abnormal. MPV (test code = 95389-4) 10.5 fL 9.8-13 RDW-CV (test code = 788-0) 15.3 % 12.1-15.4 RDW-SD (test code = 29609-0) 51.8 fL 38.5-51.6 H NRBC x10^3 (test code = 7405066646) See_Comment [Automated [employer]] The system which generated this result transmitted reference range: 10*3/?L. The reference range was not used to interpret this result as normal/abnormal. NRBC/100 WBC (test code = 5308000732) See_Comment [Automated [employer]] The system which generated this result transmitted reference range: 0.0 - 10.0 /100 WBCs. The reference range was not used to interpret this result as normal/abnormal. IPF % (test code = 9994908614) 2.0 % 1.2-10.7 Platelet count measured by fluorescence method. Lab Interpretation (test code = 79263-8) [facility]normal [facility] [id number] 10:36:34* Test Item Value Reference Range Interpretation Comme [facility] IONIZED CA (test code = 0034915333) 5.30 mg/dL 4.5-5.3 PH SERUM (test code = 5042972668) 7.35-7.45 Lab Interpretation (test cod e = 99836-6) Normal [facility] IrvingCYTO SPINAL [id number] 22:14:20* Test Item Value Reference Range Interpretation Comme [facility] Case Report (test code = 1265980753) Non-Gynecologic Cytology ?Case: [id number] ?Authorizing Provider: ?Frandy Umana MD ? ? ? Collected: ? 04/13/2022 1230 ?Ordering Location: ? ? Transplant/Gynecology /Onco Received: ?04/13/2022 1500 ? logy (JAKY 9D) ?Specimen: ? ?CEREBRAL SPINAL FLUID ? Final Diagnosis (test code = 8924047862) f5gvePAkQIIal3zuFTLmi GFuZzEwMzNcZnRuYmpcdW MxIHtccnRmMVxlcGljMTA qYWLhGW7cnZulnXt2dSev ZRKfokN5jGNvWGfwx8tpS ZC5d0wijqnyPUUnZYzcFf 9udHRibHtcZjAgQXJpYWw 1nK67XCSbqO7soGRxCXk5 XHBhcGVydzEyMjQwXHBhc TVtaNG2FSHlAB7lnxtvXP yfGVngXQHplnJ3JFKvaMI mC1XwVJIhNQ6ripvxHMF1 MIeuEUMgIRB2BgFtDIUqj 1Kmnsv1MmCnbTAmWXghnB FpblxmczIyXHBhclxiIEE tDVHICgSLAt4SYBxNEHih QauBZQM5NWUaeqFtCRRaR K1tUgANQLUUVvLhDz0PEX 6KRBxDGyQVP8jdTSNPGNH EQ12LJN8YIZrsEMJvpIIm hWslkzOiXRvmo9ZoG2KxR jAwMFxhbnNpXGRlZmxhbm vpUXJrIYC5qhDsLPQiVHg zOXMvDAbtZx0wtKRuhYiu TgRsIXMpk5wjsuDERNlnT pGgN880ILPfXYdcj8bmb1 SaLWYyqNOmu0H0NVGQhzd xuKo7r2liOnAiCgC8jBZg JYviE8yvhqKexTMhE6Bbc GPgaMg2kLrtJ31sm7K7Gi loV4ciDMGeQODrW2AwVO3 gWCGtDza9JQV7KAS7SRRn ZLAoG8BpXR3aQOMtwPWqW Fi1y8wspUuoHSPzOPQ5e9 rcUTssggB7NW5rer6fxJt 2e7kkjfAfSWLrEFFucARL ZQDlQ9DyyUiuCd8mbXu7n LumOtmjFPL0Zun9NF8lhf 44lif5mZvwDEOdqehnMcI 9MDcgJLDfjgfeNTg9PZwc WPKigDF6JONccRFwX3GoO LRpYV1tqwi8IUM6JJinGA XpJbZ7TQVtzSRyQTYisJx hJAmzp781QSV0KhPmPS0k Q2Xjf5W0dM4mkUFtYRHno VIxBfYjHCTudr9elPVwRP nrh2DgDIC5xuI7jJHjkFH oUWZjER57Jwsdr7IyRfwf JPK6SNJokaJld5Wzz9qnH uPsydAbE3suQ7SeBPBqDR FxNYMeHgTtvbQak6Frr3K gwFFzvCk7v1mfMSPoBBPg kUgli5ufZAB2RMVqX3I4i TMou9doJDvcZFBnfLM1va C9JYUzwITaG5BerY3zKTS aNW8mbwn9g8fmGZU1GKho WLXvQcM9jjX8LLUowEVkF EIelBwjWNpxp546NYV9Km DtGYApu7HoZ5OhfHatZ34 nwFoiC80sZEIczMakbT6z cVwusV6dSbWiTcTzSHofs FxwbGFpblxmMVxmczIwXG evtnnyLFSwUPjgH5ibBdX uINZlnKcqVXgwt1SuMKWj XGNmMlxmczIwXHBhciBJI RnnjoUwdKHeo28fZNorzK MxWAXpCCthBCXbyCvpy5J mB2mwPX9wF6DjzLGbcbCv tkIjBJjwGFWuh6s0dLJrx Cagj8SmaYSmXI80raPsNL TpPVD2MSQxv9mzSM30lzu kWrSnvC90ahVjloXkEZOv o2wsE3xrgRQoo2Gsw1Iue kBqSPxjy2HlTS2iyRLsjj geyPA1IMLtyDGsleObalJ 3xUmcJXXnpI4xzK2hlLao pE2fExCxRdYpJRlbXE7wM KFdD7vacDNvNVYzUAHbY9 kmFyOneI7ceNxxDiowoiO 9EHNexb73 Final Diagnosis Comment (test code = 2045431483) f3ghxQBhUEKkdQNyYXGtP 0urzxHjTYFriEYbQ2Wggl hdYYxqEW1eJP3ouToojCU esHSyAUVsRyGyc4sfy022 kUXel2wdPLRUkrchhWy3u VsxU64bb1L1CxarW33tnO HkQPN9HQIaTUZlaWPpVKE gBIM7QTRgaQOxE0qlHDRg UH3lodwcGAfeAFinABUfg XV3CBOdnMMmN3FfPHJwSF seSNFtggy7ZmJdEq5xmSS yeTcyMFxwYXJkXHBsYWlu GVEhMmDiXcJaMAAtgV1uh Z7veQIzhzDqsrZjmvE0yN JvcGhpbHMsIGFuZCBudW1 kpm62ciBbSOTpTgidd5Sk F6MzaHJgRAUjWTEhPS5gL B7eYH7gvVkpvqOdbNQoMF xscyBpZGVudGlmaWVkLlx wYXJ9 Clinical Information (test code = 8799315946) burkitt's lymphoma, CSF sample Gross Description (test code = 3471224978) c3vihKVdMTNosDHdKAIsI 5cbxxBvJDBjfFSwS1Qmai ulPIelUV9jZS7jjIojbKF puLXlQYXjSfFho5vsb027 vLUkv6paGZRJklqbvJo7z DoqO54sn0M2SzzfM81jlG TkSXK4CFSpUBXtcXCbMAI aDBU2IEPliIQpK4myZRMl VL6lnvblKCrkTKwmQQWfg FH3TRMtcDToM6VuBYDfOC bxJQXooha0ZlYoWg1rbHR szQelXUrhBzyzrScto6Td dCBcXGlkIDUxMDAwIFxcb ptsZBa0KUWwGJganJLfIY 0hkJjeFihzlHtjk8ZyhMS cXGlkIDUxMDAyIFxcZGIg Y8YKCEOiWAY6NOghMCBeR Hd3SQllX9FPUAPyZFMoGc J3FFHiPwO8SNl2TLOASx2 sHUV0EPM3PQisTBI2PHLo OCBcXHQgMiBcXGZsIFxcZ iBBcmlhbCBcXGZzIDEwIF lyfnZ5NGIxueOalXmmcA3 cZnMyMFxwYXJcZnMyMlxw YXIgQTEuICBDRVJFQlJPU 1BJTkFMIEZMVUlEXHBhci BSZWNlaXZlZCBmcmVzaCB rrlX5QCWuD3Dok2ZuQ6ua ZTPeBdg3iQTpwnPgHWh5E MGnWDKvcCl1BKN0EjFqBM CmimBdkP9pwUIbKQvlDCP gUHJlcGFyZWQgMiBzbGlk DHZcMFJ3iD1rkOibZRIiO ZMetkD9lG6twlbpHRAFq1 3cxx76z5n7UOYtXCDkISJ hcGFuaWNvbGFvdSBzdGFp daReYQtqJKK6GUEwaRPgB UX0ZO0fyTkdPFVoN4UtR6 AgsnM9ZWPzpe5= Disclaimer (test code = 5837157110) a1oysEBzDFLtc5bzGQTld GFuZzEwMzNcZnRuYmpcdW UpAQvqkzWlPSudn4VgX8H yMjAwMFxhbnNpXGRlZmxh yyciXNYeQHU1haJfSEAnQ YpsJITuNZtiIa4ooGZqcP tqQuHlMHBny1kwklRWJYd iRxOkR204MPYaKUnod0oa a2DjZGUiwFEvv0N4YKJXy rdspXm6oAwlW30gd1E1Rv whW6caHATgTACfE1GlAL1 lPEUmHyp2MTT7SXH5AHXb ALKtA7YbXB2gHPUtvQGmG Ug4v7yjwPxbBOXjXIQ2q5 mhMFhqvoHbRS4tlf4ddOs 2m2tshmTiXCJnMYZjhRUA NCIwM9GvrVjaXu2xrHj6t CdsEqxsTOC3Vkh5SN6yhs 21xcb8yCzdHQGfrmspOtR 4WTgvASIardfjABv2ZOgd ONWcbVS8OKVsaSXtE4KzL RDiYW2qixc5RXV7UQbaLX MbTiX9WEFcjTTeECOwzGg kHQybq238GYI3XuAwEQ0s O3Gmi1L5uV9zbCCkUFXkw QQoTfZrZLUbrw4ooAHaRK hhj1MaYKJ7umZ0jSBttMV yXRPvAO12Bqihv4NjUejh a5JeQ10ulRU5HMihc9rwC N7vRgV7obAoTNwsv4rqoJ 5sOnN3SZinCE0tXR8iMKB ixX4txqmgXFWrVdGwspub MUSoyNflxvIlSi0tfLtgP CC6THujR5prrC2yVnI3TV rhG5xrpR2rAIi7XZdwxHW 1YYNznB1rPH7ungrkn8nt BPsdZIedBSUhvmH4bcJ5E QNyaZGjW6FkxF7pEZMaZE 0ejfpxf2pyIPR6WOcwFUU kTUC5NxXrUQXih7Tsvsa9 QqDom0BimTSlHBjmX43kl 369YIAlmbTlQ6qmvTFmql haoHXigbihRFsrigD2LGF usvLyu2ZpOAYjCRF6OItc WWhfgBPgXDUpuYlmq6ivZ 3RscGFyXHBsYWluXGYxXG ZzMjBcbGFuZzEwMzNcaGl jaFxmMVxkYmNoXGYxXGxv B3ykSmHgX8JsMUUfBvVeg HBzO4bxPMiktpJdVSWumr YwxMX6NMntR1w1LTLtaoP vbVx4isSpIhLcUBJxOVM4 AHjntBSkXYJpd8Scpmjqz NLuZn2glJAeHCMepE8hNG ZyZFVxQHbfNV7oyXl2SGB EiBKnkSDjDqUZTOAkWH21 bkXtBMNEcmidd6D2PEfnM NIwx0HueBRlS7fjh3TwBR You38uIV2qe0X8l2erRPN 8PH5lu8IdPWShdHPvjFCq KROtk5Dkezvwh3YcSTKxa iVnz0PjRJZkahRmhTZaZH JezsDhnk5lmwRmJDRsJBR uX5TqvdpchWpmpoJdTCXh vp1xwnRzLFH0TWPQCPLsK PJbc7NouV2ysDDRDZL2lN Lmet1rtcHFtPKfDDEamk6 7LEFeRJ1wN4igVUVkSONs ofWokYVdr4NuSDOxoCN4w VXwGI8RRmWHg66zYQTvXP MKzmTgBGXxvLmobFL5gmR 0bK9iWUuDZIFgYjz+IFRo UUKVTYOxPH8ylfRvr7Bvr yLgpNuyCYFrzGRkz5BirP Nod1ZtfGnle4MbrUMfqGZ eGD4bUNMkuyloCPGgDPND IxTDQZSldsC9p5PuHKUhA QTvDMM7kAmumlm6PBCorQ 3qNFLyO2irbjtfMBwkYQH gy1JwwZ0tuYOYaRAtk4Sl xNWirQNKeNTjWV7aqzPcU KdROKbZORS7mmSxNQDce9 PcUAbcO7ktM16doBzldLt 5lIE8QRB0hF2aHdf+IFxw YXJccGFyIEFwcHJvcHJpY MQmbDryogZaI1TipgLixX 6wkMPohvSgTP2qJI2jT6F 3pKWrVPQqetTvp0qoKVsk dmUgYmVlbiByZXZpZXdlZ DDkw4HtZKcnQDQ7MBtmdy BpbmNsdWRpbmcgSCZFLCB DfBAkjYSdXPT2FTgrkrGj kzSeOY4pmF3eaQqflY4vw JDhgXI2baynNXUoBHXkjF ocWNVhRN0ckNUsYHKaigJ UeDlcyQBbbB8tV3PpKLXf WDNhuw0nAHGtxI6gJScmi 2VydmljZXMgYXJlIHBlcm Gznc9nWFFjbAPPPT2FCWi qkZBnj6OtjuIgY6sJNIB1 NUQwNjYwMjgxKSBleGNlc VMeQNDhmy74GSGdrH0gaB akZARprZ8lbK9jwGlrfO4 bStTkXxRfDYekBP8hXCNb B6ciyYCwLPErFPSnK7vpC yFxyI9oqVucZGquEcEbMv PmUVnoZFN6wU== Embedded Images (test code = 5445924901) [facility] [id number] 16:30:25* Test Item Value Reference Range Interpretation Comme nts PROTIME PATIENT (test code = 5964-2) See_Comment H [Automated messa ge] The system which generated this result transmitted reference range: 10.1 - 12.6 Seconds. The reference range was not used to interpret this result as normal/abnormal. INR (test code = 6301-6) Normal INR <1.1; Warfarin Therapeutic range 2.0 to 3.0 or 2.5 to 3.5, depending upon the indications. Lab Interpretation (test code = 56566-7) [facility] / [id number] 16:30:25* Test Item Value Reference Range Interpretation Comme nts PROTIME PATIENT (test code = 5964-2) See_Comment H [Automated messa ge] The system which generated this result transmitted reference range: 10.1 - 12.6 Seconds. The reference range was not used to interpret this result as normal/abnormal. INR (test code = 6301-6) Normal INR <1.1; Warfarin Therapeutic range 2.0 to 3.0 or 2.5 to 3.5, depending upon the indications. Lab Interpretation (test code = 27594-4) [facility] / [id number] 16:30:25* Test Item Value Reference Range Interpretation Comme nts PROTIME PATIENT (test code = 5964-2) See_Comment H [Automated messa ge] The system which generated this result transmitted reference range: 10.1 - 12.6 Seconds. The reference range was not used to interpret this result as normal/abnormal. INR (test code = 6301-6) Normal INR <1.1; Warfarin Therapeutic range 2.0 to 3.0 or 2.5 to 3.5, depending upon the indications. Lab Interpretation (test code = 09350-0) Abnormal [facility] WITH [id number] 11:44:22* Test Item Value Reference Range Interpretation Comme nts WBC (test code = 6690-2) See_Comment L [Automated messa ge] The system which generated this result transmitted reference range: 4.20 - 10.70 10*3/?L. The reference range was not used to interpret this result as normal/abnormal. RBC (test code = 789-8) See_Comment L [Automated [employer]ine[employer] ge] The system which generated this result transmitted reference range: 4.26 - 5.52 10*6/?L. The reference range was not used to interpret this result as normal/abnormal. HGB (test code = 718-7) 7.9 g/dL 12.2-16.4 L HCT (test code = 4544-3) 23.7 % 38.4-49.3 L MCV (test code = 787-2) 92.6 fL 81.7-95.6 MCH (test code = 785-6) 30.9 pg 26.1-32.7 MCHC (test code = 786-4) 33.3 g/dL 31.2-35 RDW-SD (test code = 66528-4) 54.7 fL 38.5-51.6 H RDW-CV (test code = 788-0) 16.2 % 12.1-15.4 H PLT (test code = 777-3) See_Comment L [Automated [employer]] The system which generated this result transmitted reference range: 150 - 328 10*3/?L. The reference range was not used to interpret this result as normal/abnormal. MPV (test code = 24666-8) 10.4 fL 9.8-13 IPF % (test code = 6635439609) 2.3 % 1.2-10.7 Platelet count measured by fluorescence method. NRBC/100 WBC (test code = 2879687157) See_Comment [Automated ASP64 ssage] The system which generated this result transmitted reference range: 0.0 - 10.0 /100 WBCs. The reference range was not used to interpret this result as normal/abnormal. NRBC x10^3 (test code = 9867694190) See_Comment [Automated [employer] ge] The system which generated this result transmitted reference range: 10*3/?L. The reference range was not used to interpret this result as normal/abnormal. GRAN MAT (NEUT) % (test code = 770-8) 77.7 % IMM GRAN % (test code = 5293803328) 0.30 % LYMPH % (test code = 736-9) 12.8 % MONO % (test code = 5905-5) 8.9 % EOS % (test code = 713-8) 0.3 % BASO % (test code = 706-2) 0.0 % GRAN MAT x10^3(ANC) (test code = 6005499613) 2.43 10*3/uL 1.99-6.95 IMM GRAN x10^3 (test code = 7912370517) 0-0.06 LYMPH x10^3 (test code = 731-0) 0.40 10*3/uL 1.09-3.23 L MONO x10^3 (test code = 742-7) 0.28 10*3/uL 0.36-1.02 L EOS x10^3 (test code = 711-2) 0.06-0.53 L BASO x10^3 (test code = 704-7) 0.01-0.09 Lab Interpretation (test code = 23338-1) Abnormal [facility] WITH [id number] 11:44:22* Test Item Value Reference Range Interpretation Comme nts WBC (test code = 6690-2) See_Comment L [Automated messa ge] The system which generated this result transmitted reference range: 4.20 - 10.70 10*3/?L. The reference range was not used to interpret this result as normal/abnormal. RBC (test code = 789-8) See_Comment L [Automated messa ge] The system which generated this result transmitted reference range: 4.26 - 5.52 10*6/?L. The reference range was not used to interpret this result as normal/abnormal. HGB (test code = 718-7) 7.9 g/dL 12.2-16.4 L HCT (test code = 4544-3) 23.7 % 38.4-49.3 L MCV (test code = 787-2) 92.6 fL 81.7-95.6 MCH (test code = 785-6) 30.9 pg 26.1-32.7 MCHC (test code = 786-4) 33.3 g/dL 31.2-35 RDW-SD (test code = 24719-5) 54.7 fL 38.5-51.6 H RDW-CV (test code = 788-0) 16.2 % 12.1-15.4 H PLT (test code = 777-3) See_Comment L [Automated [employer] ge] The system which generated this result transmitted reference range: 150 - 328 10*3/?L. The reference range was not used to interpret this result as normal/abnormal. MPV (test code = 48139-1) 10.4 fL 9.8-13 IPF % (test code = 8274332732) 2.3 % 1.2-10.7 Platelet count measured by fluorescence method. NRBC/100 WBC (test code = 6568974118) See_Comment [Automated ASP64 ssage] The system which generated this result transmitted reference range: 0.0 - 10.0 /100 WBCs. The reference range was not used to interpret this result as normal/abnormal. NRBC x10^3 (test code = 4023929370) See_Comment [Automated [employer] ge] The system which generated this result transmitted reference range: 10*3/?L. The reference range was not used to interpret this result as normal/abnormal. GRAN MAT (NEUT) % (test code = 770-8) 77.7 % IMM GRAN % (test code = 1294850497) 0.30 % LYMPH % (test code = 736-9) 12.8 % MONO % (test code = 5905-5) 8.9 % EOS % (test code = 713-8) 0.3 % BASO % (test code = 706-2) 0.0 % GRAN MAT x10^3(ANC) (test code = 7452152414) 2.43 10*3/uL 1.99-6.95 IMM GRAN x10^3 (test code = 0431918368) 0-0.06 LYMPH x10^3 (test code = 731-0) 0.40 10*3/uL 1.09-3.23 L MONO x10^3 (test code = 742-7) 0.28 10*3/uL 0.36-1.02 L EOS x10^3 (test code = 711-2) 0.06-0.53 L BASO x10^3 (test code = 704-7) 0.01-0.09 Lab Interpretation (test code = 77290-4) Abnormal [facility] WITH [id number] 11:44:22* Test Item Value Reference Range Interpretation Comme nts WBC (test code = 6690-2) See_Comment L [Automated messa ge] The system which generated this result transmitted reference range: 4.20 - 10.70 10*3/?L. The reference range was not used to interpret this result as normal/abnormal. RBC (test code = 789-8) See_Comment L [Automated [employer] ge] The system which generated this result transmitted reference range: 4.26 - 5.52 10*6/?L. The reference range was not used to interpret this result as normal/abnormal. HGB (test code = 718-7) 7.9 g/dL 12.2-16.4 L HCT (test code = 4544-3) 23.7 % 38.4-49.3 L MCV (test code = 787-2) 92.6 fL 81.7-95.6 MCH (test code = 785-6) 30.9 pg 26.1-32.7 MCHC (test code = 786-4) 33.3 g/dL 31.2-35 RDW-SD (test code = 86517-1) 54.7 fL 38.5-51.6 H RDW-CV (test code = 788-0) 16.2 % 12.1-15.4 H PLT (test code = 777-3) See_Comment L [Automated [employer] ge] The system which generated this result transmitted reference range: 150 - 328 10*3/?L. The reference range was not used to interpret this result as normal/abnormal. MPV (test code = 21528-7) 10.4 fL 9.8-13 IPF % (test code = 4304357310) 2.3 % 1.2-10.7 Platelet count measured by fluorescence method. NRBC/100 WBC (test code = 3975338715) See_Comment [Automated ASP64 ssage] The system which generated this result transmitted reference range: 0.0 - 10.0 /100 WBCs. The reference range was not used to interpret this result as normal/abnormal. NRBC x10^3 (test code = 6316646185) See_Comment [Automated messa ge] The system which generated this result transmitted reference range: 10*3/?L. The reference range was not used to interpret this result as normal/abnormal. GRAN MAT (NEUT) % (test code = 770-8) 77.7 % IMM GRAN % (test code = 0752752422) 0.30 % LYMPH % (test code = 736-9) 12.8 % MONO % (test code = 5905-5) 8.9 % EOS % (test code = 713-8) 0.3 % BASO % (test code = 706-2) 0.0 % GRAN MAT x10^3(ANC) (test code = 5996197307) 2.43 10*3/uL 1.99-6.95 IMM GRAN x10^3 (test code = 7226515060) 0-0.06 LYMPH x10^3 (test code = 731-0) 0.40 10*3/uL 1.09-3.23 L MONO x10^3 (test code = 742-7) 0.28 10*3/uL 0.36-1.02 L EOS x10^3 (test code = 711-2) 0.06-0.53 L BASO x10^3 (test code = 704-7) 0.01-0.09 Lab Interpretation (test code = 51129-6) Abnormal [facility] [id number] 11:39:30* Test Item Value Reference Range Interpretation Comme nts IONIZED CA (test code = 8218403466) 5.40 mg/dL 4.5-5.3 H PH SERUM (test code = 5686438128) 7.35-7.45 QUES Lab Interpretation (test cod e = 81048-6) Abnormal [facility] [id number] 11:39:30* Test Item Value Reference Range Interpretation Comme nts IONIZED CA (test code = 8126213514) 5.40 mg/dL 4.5-5.3 H PH SERUM (test code = 5061561475) 7.35-7.45 QUES Lab Interpretation (test cod e = 70432-7) Abnormal [facility] [id number] 11:39:30* Test Item Value Reference Range Interpretation Comme nts IONIZED CA (test code = 8964662411) 5.40 mg/dL 4.5-5.3 H PH SERUM (test code = 9779597028) 7.35-7.45 QUES Lab Interpretation (test cod e = 74341-9) [facility] 11:20:21* Test Item Value Reference Range Interpretation Comme nts PHOSPHORUS (test code = 6949562302) 2.8 mg/dL 2.5-5 Lab Interpretation (test cod e = 46918-6) [facility] [id number] 11:20:21* Test Item Value Reference Range Interpretation Comme nts LDH (test code = 6452196393) 858 U/L 120-246 H Lab Interpretation (test cod e = 54553-0) [facility] [id number] 11:20:21* Test Item Value Reference Range Interpretation Comme nts URIC ACID (test code = 1182665506) 6.5 mg/dL 3.6-8 Lab Interpretation (test cod e = 56293-9) [facility] (22916[facility] (ALB,T.PRO,BILI T,BU/BC,ALT,AST,ALK PHOS)2022-04-13 11:20:21* Test Item Value Reference Range Interpretation Comme nts TOTAL BILI (test code = 0283925022) 0.9 mg/dL 0.1-1.1 BILI UNCON (test code = 6598842471) 0.7 mg/dL 0.1-1.1 BILI CONJ (test code = 9925459983) 0.0 mg/dL 0-0.3 T PROTEIN (test code = 5234868209) 6.8 g/dL 6.3-8.2 ALBUMIN (test code = 9926561930) 3.2 g/dL 3.5-5 L ALK PHOS (test code = 7128377577) 86 U/L 34-122 ALTv (test code = 1742-6) 72 U/L 5-50 H AST(SGOT) (test code = 5842212382) 70 U/L 13-40 H Lab Interpretation (test cod e = 27576-8) [facility] 11:20:21* Test Item Value Reference Range Interpretation Comme nts PHOSPHORUS (test code = 4672569199) 2.8 mg/dL 2.5-5 Lab Interpretation (test cod e = 35639-5) [facility] [id number] 11:20:21* Test Item Value Reference Range Interpretation Comme nts LDH (test code = 5855772421) 858 U/L 120-246 H Lab Interpretation (test cod e = 86963-9) [facility] [id number] 11:20:21* Test Item Value Reference Range Interpretation Comme nts URIC ACID (test code = 8473753066) 6.5 mg/dL 3.6-8 Lab Interpretation (test cod e = 79523-9) [facility]-21 11:20:21* Test Item Value Reference Range Interpretation Comme nts MAGNESIUM (test code = 8586235762) 1.7 mg/dL 1.7-2.4 Lab Interpretation (test cod e = 88390-7) [facility] (13266) (ALB,T.PRO,BILI T,BU/BC,ALT,AST,ALK PHOS)2022-04-13 11:20:21* Test Item Value Reference Range Interpretation Comme nts TOTAL BILI (test code = 8662370577) 0.9 mg/dL 0.1-1.1 BILI UNCON (test code = 5394328386) 0.7 mg/dL 0.1-1.1 BILI CONJ (test code = 6855095041) 0.0 mg/dL 0-0.3 T PROTEIN (test code = 9252141560) 6.8 g/dL 6.3-8.2 ALBUMIN (test code = 1763624458) 3.2 g/dL 3.5-5 L ALK PHOS (test code = 2989314290) 86 U/L 34-122 ALTv (test code = 1742-6) 72 U/L 5-50 H AST(SGOT) (test code = 3891180017) 70 U/L 13-40 H Lab Interpretation (test cod e = 59454-4) [facility]21 11:20:21* Test Item Value Reference Range Interpretation Comme nts MAGNESIUM (test code = 6724143509) 1.7 mg/dL 1.7-2.4 Lab Interpretation (test cod e = 81187-0) [facility]-21 11:20:21* Test Item Value Reference Range Interpretation Comme nts PHOSPHORUS (test code = 2017303507) 2.8 mg/dL 2.5-5 Lab Interpretation (test cod e = 70052-3) [facility] [id number] 11:20:21* Test Item Value Reference Range Interpretation Comme nts LDH (test code = 7582206896) 858 U/L 120-246 H Lab Interpretation (test cod e = 80555-4) [facility]normal [facility] [id number] 11:20:21* Test Item Value Reference Range Interpretation Comme nts URIC ACID (test code = 3722551641) 6.5 mg/dL 3.6-8 Lab Interpretation (test cod e = 02919-1) [facility] (52336) (ALB,T.PRO,BILI T,BU/BC,ALT,AST,ALK PHOS)2022-04-13 11:20:21* Test Item Value Reference Range Interpretation Comme nts TOTAL BILI (test code = 3666842858) 0.9 mg/dL 0.1-1.1 BILI UNCON (test code = 1693721227) 0.7 mg/dL 0.1-1.1 BILI CONJ (test code = 8318132820) 0.0 mg/dL 0-0.3 T PROTEIN (test code = 0132662785) 6.8 g/dL 6.3-8.2 ALBUMIN (test code = 8303723565) 3.2 g/dL 3.5-5 L ALK PHOS (test code = 2271702709) 86 U/L 34-122 ALTv (test code = 1742-6) 72 U/L 5-50 H AST(SGOT) (test code = 5749152086) 70 U/L 13-40 H Lab Interpretation (test cod e = 60055-1) [facility]normal [facility] 11:20:21* Test Item Value Reference Range Interpretation Comme nts MAGNESIUM (test code = 4657610867) 1.7 mg/dL 1.7-2.4 Lab Interpretation (test cod e = 43388-1) Normal [facility] METABOLIC PANEL (NA, K, CL, CO2, GLUCOSE, BUN, CREATININE, CA)2022-04-13 11:20:20* Test Item Value Reference Range Interpretation Comme nts NA (test code = 1383151067) 140 mmol/L 135-145 K (test code = 9793950888) 3.7 mmol/L 3.5-5 CL (test code = 6484985723) 109 mmol/L 98-108 H CO2 TOTAL (test code = 1418561844) 22 mmol/L 23-31 L AGAP (test code = 5748985519) 2-16 BUN (test code = 3030274663) 26 mg/dL 7-23 H GLUCOSE (test code = 3984826773) 91 mg/dL 70-110 CREATININE (test code = 2797286728) 0.87 mg/dL 0.6-1.25 CALCIUM (test code = 1059085756) 9.3 mg/dL 8.6-10.6 eGFR (test code = 6107568000) mL/min/1.73m2 MONTSERRAT (test code = MONTSERRAT) Association of Glomerular Filtration Rate (GFR) and Staging of Kidney Disease* + --+ --+ ------+| GFR (mL/min/1.73 m2) ?| With Kidney Damage ?| ?Without Kidney Damage+ --------+ --------+ +| ?>90 ?| ?Stage one ?| ? Normal ?+ ---+ ---+ -------+| ?60-89 ?| ?Stage two ?| ? Decreased GFR ? + --+ --+ ------+| ?30-59 ?| ?Stage three ?| ? Stage three ? + --+ --+ ------+| ?15-29 ?| ?Stage four ? | ? Stage four ?+ ---+ ---+ -------+| ?<15 (or dialysis) ? ?| ?Stage five ? | ? Stage five ?+ ---+ ---+ -------+ *Each stage assumes the associated GFR level has been in effect for at least three months. ?Stages 1 to 5, with or without kidney disease, indicate chronic kidney disease. Notes: Determination of stages one and two (with eGFR >59mL/min/1.73 m2) requires estimation of kidney damage for at least three months as defined by structural or functional abnormalities of the kidney, manifested by either:Pathological abnormalities or Markers of kidney damage (including abnormalities in the composition of the blood or urine or abnormalities in imaging tests). Lab Interpretation (test code = 45039-4) Abnormal [facility] METABOLIC PANEL (NA, K, CL, CO2, GLUCOSE, BUN, CREATININE, CA)2022-04-13 11:20:20* Test Item Value Reference Range Interpretation Comme nts NA (test code = 9366694812) 140 mmol/L 135-145 K (test code = 3273629932) 3.7 mmol/L 3.5-5 CL (test code = 1431285141) 109 mmol/L 98-108 H CO2 TOTAL (test code = 9198879223) 22 mmol/L 23-31 L AGAP (test code = 1708674608) 2-16 BUN (test code = 8965302301) 26 mg/dL 7-23 H GLUCOSE (test code = 5846357380) 91 mg/dL 70-110 CREATININE (test code = 7551186972) 0.87 mg/dL 0.6-1.25 CALCIUM (test code = 7900758036) 9.3 mg/dL 8.6-10.6 eGFR (test code = 5304611928) mL/min/1.73m2 MONTSERRAT (test code = MONTSERRAT) Association of Glomerular Filtration Rate (GFR) and Staging of Kidney Disease* + --+ --+ ------+| GFR (mL/min/1.73 m2) ?| With Kidney Damage ?| ?Without Kidney Damage+ --------+ --------+ +| ?>90 ?| ?Stage one ?| ? Normal ?+ ---+ ---+ -------+| ?60-89 ?| ?Stage two ?| ? Decreased GFR ? + --+ --+ ------+| ?30-59 ?| ?Stage three ?| ? Stage three ? + --+ --+ ------+| ?15-29 ?| ?Stage four ? | ? Stage four ?+ ---+ ---+ -------+| ?<15 (or dialysis) ? ?| ?Stage five ? | ? Stage five ?+ ---+ ---+ -------+ *Each stage assumes the associated GFR level has been in effect for at least three months. ?Stages 1 to 5, with or without kidney disease, indicate chronic kidney disease. Notes: Determination of stages one and two (with eGFR >59mL/min/1.73 m2) requires estimation of kidney damage for at least three months as defined by structural or functional abnormalities of the kidney, manifested by either:Pathological abnormalities or Markers of kidney damage (including abnormalities in the composition of the blood or urine or abnormalities in imaging tests). Lab Interpretation (test code = 33043-7) Abnormal [facility] METABOLIC PANEL (NA, K, CL, CO2, GLUCOSE, BUN, CREATININE, CA)2022-04-13 11:20:20* Test Item Value Reference Range Interpretation Comme nts NA (test code = 0070318135) 140 mmol/L 135-145 K (test code = 9771103180) 3.7 mmol/L 3.5-5 CL (test code = 0691418266) 109 mmol/L 98-108 H CO2 TOTAL (test code = 9578143097) 22 mmol/L 23-31 L AGAP (test code = 9807512807) 2-16 BUN (test code = 0903675524) 26 mg/dL 7-23 H GLUCOSE (test code = 7906005636) 91 mg/dL 70-110 CREATININE (test code = 3589309290) 0.87 mg/dL 0.6-1.25 CALCIUM (test code = 9701935053) 9.3 mg/dL 8.6-10.6 eGFR (test code = 8024970418) mL/min/1.73m2 MONTSERRAT (test code = MONTSERRAT) Association of Glomerular Filtration Rate (GFR) and Staging of Kidney Disease* + --+ --+ ------+| GFR (mL/min/1.73 m2) ?| With Kidney Damage ?| ?Without Kidney Damage+ --------+ --------+ +| ?>90 ?| ?Stage one ?| ? Normal ?+ ---+ ---+ -------+| ?60-89 ?| ?Stage two ?| ? Decreased GFR ? + --+ --+ ------+| ?30-59 ?| ?Stage three ?| ? Stage three ? + --+ --+ ------+| ?15-29 ?| ?Stage four ? | ? Stage four ?+ ---+ ---+ -------+| ?<15 (or dialysis) ? ?| ?Stage five ? | ? Stage five ?+ ---+ ---+ -------+ *Each stage assumes the associated GFR level has been in effect for at least three months. ?Stages 1 to 5, with or without kidney disease, indicate chronic kidney disease. Notes: Determination of stages one and two (with eGFR >59mL/min/1.73 m2) requires estimation of kidney damage for at least three months as defined by structural or functional abnormalities of the kidney, manifested by either:Pathological abnormalities or Markers of kidney damage (including abnormalities in the composition of the blood or urine or abnormalities in imaging tests). Lab Interpretation (test code = 28951-1) [facility] [id number] 12:13:37* Test Item Value Reference Range Interpretation Comme nts LDH (test code = 7825966747) 1063 U/L 120-246 H Lab Interpretation (test cod e = 87288-6) [facility] [id number] 12:13:37* Test Item Value Reference Range Interpretation Comme nts LDH (test code = 0016348233) 1063 U/L 120-246 H Lab Interpretation (test cod e = 32907-6) [facility]OL[facility] (NA, K, CL, CO2, GLUCOSE, BUN, CREATININE, CA)2022-04-12 11:48:54* Test Item Value Reference Range Interpretation Comme nts NA (test code = 1550344888) 140 mmol/L 135-145 K (test code = 3687082543) 4.5 mmol/L 3.5-5 CL (test code = 1861289243) 110 mmol/L 98-108 H CO2 TOTAL (test code = 4034854087) 21 mmol/L 23-31 L AGAP (test code = 6216073606) 2-16 BUN (test code = 6556239611) 23 mg/dL 7-23 GLUCOSE (test code = 0947890506) 120 mg/dL 70-110 H CREATININE (test code = 2947241849) 0.84 mg/dL 0.6-1.25 CALCIUM (test code = 5109735535) 10.3 mg/dL 8.6-10.6 eGFR (test code = 9396000106) mL/min/1.73m2 MONTSERRAT (test code = MONTSERRAT) Association of Glomerular Filtration Rate (GFR) and Staging of Kidney Disease* + --+ --+ ------+| GFR (mL/min/1.73 m2) ?| With Kidney Damage ?| ?Without Kidney Damage+ --------+ --------+ +| ?>90 ?| ?Stage one ?| ? Normal ?+ ---+ ---+ -------+| ?60-89 ?| ?Stage two ?| ? Decreased GFR ? + --+ --+ ------+| ?30-59 ?| ?Stage three ?| ? Stage three ? + --+ --+ ------+| ?15-29 ?| ?Stage four ? | ? Stage four ?+ ---+ ---+ -------+| ?<15 (or dialysis) ? ?| ?Stage five ? | ? Stage five ?+ ---+ ---+ -------+ *Each stage assumes the associated GFR level has been in effect for at least three months. ?Stages 1 to 5, with or without kidney disease, indicate chronic kidney disease. Notes: Determination of stages one and two (with eGFR >59mL/min/1.73 m2) requires estimation of kidney damage for at least three months as defined by structural or functional abnormalities of the kidney, manifested by either:Pathological abnormalities or Markers of kidney damage (including abnormalities in the composition of the blood or urine or abnormalities in imaging tests). Lab Interpretation (test code = 79641-2) [facility] 11:48:54* Test Item Value Reference Range Interpretation Comme nts MAGNESIUM (test code = 8565804283) 1.8 mg/dL 1.7-2.4 Lab Interpretation (test cod e = 37596-4) [facility] (21918) (ALB,T.PRO,BILI T,BU/BC,ALT,AST,ALK PHOS)2022-04-12 11:48:54* Test Item Value Reference Range Interpretation Comme nts TOTAL BILI (test code = 7269556745) 0.8 mg/dL 0.1-1.1 BILI UNCON (test code = 5305670739) 0.4 mg/dL 0.1-1.1 BILI CONJ (test code = 3456256326) 0.0 mg/dL 0-0.3 T PROTEIN (test code = 3960781955) 8.1 g/dL 6.3-8.2 ALBUMIN (test code = 8668943272) 4.0 g/dL 3.5-5 ALK PHOS (test code = 8767639538) 115 U/L 34-122 ALTv (test code = 1742-6) 91 U/L 5-50 H AST(SGOT) (test code = 4416460587) 78 U/L 13-40 H Lab Interpretation (test cod e = 75878-3) [facility] [id number] 11:48:54* Test Item Value Reference Range Interpretation Comme nts URIC ACID (test code = 1113322329) 5.5 mg/dL 3.6-8 Lab Interpretation (test cod e = 06231-8) [facility] (NA, K, CL, CO2, GLUCOSE, BUN, CREATININE, CA)2022-04-12 11:48:54* Test Item Value Reference Range Interpretation Comme [facility] NA (test code = 1327418992) 140 mmol/L 135-145 K (test code = 5101065512) 4.5 mmol/L 3.5-5 CL (test code = 3717339100) 110 mmol/L 98-108 H CO2 TOTAL (test code = 6569976196) 21 mmol/L 23-31 L AGAP (test code = 8000036174) 2-16 BUN (test code = 0149614572) 23 mg/dL 7-23 GLUCOSE (test code = 9751078192) 120 mg/dL 70-110 H CREATININE (test code = 5817019548) 0.84 mg/dL 0.6-1.25 CALCIUM (test code = 5916584817) 10.3 mg/dL 8.6-10.6 eGFR (test code = 7533314321) mL/min/1.73m2 MONTSERRAT (test code = MONTSERRAT) Association of Glomerular Filtration Rate (GFR) and Staging of Kidney Disease* + --+ --+ ------+| GFR (mL/min/1.73 m2) ?| With Kidney Damage ?| ?Without Kidney Damage+ --------+ --------+ +| ?>90 ?| ?Stage one ?| ? Normal ?+ ---+ ---+ -------+| ?60-89 ?| ?Stage two ?| ? Decreased GFR ? + --+ --+ ------+| ?30-59 ?| ?Stage three ?| ? Stage three ? + --+ --+ ------+| ?15-29 ?| ?Stage four ? | ? Stage four ?+ ---+ ---+ -------+| ?<15 (or dialysis) ? ?| ?Stage five ? | ? Stage five ?+ ---+ ---+ -------+ *Each stage assumes the associated GFR level has been in effect for at least three months. ?Stages 1 to 5, with or without kidney disease, indicate chronic kidney disease. Notes: Determination of stages one and two (with eGFR >59mL/min/1.73 m2) requires estimation of kidney damage for at least three months as defined by structural or functional abnormalities of the kidney, manifested by either:Pathological abnormalities or Markers of kidney damage (including abnormalities in the composition of the blood or urine or abnormalities in imaging tests). Lab Interpretation (test code = 64460-4) [facility] 11:48:54* Test Item Value Reference Range Interpretation Comme nts MAGNESIUM (test code = 0900021464) 1.8 mg/dL 1.7-2.4 Lab Interpretation (test cod e = 24362-3) [facility] (66123) (ALB,T.PRO,BILI T,BU/BC,ALT,AST,ALK PHOS)2022-04-12 11:48:54* Test Item Value Reference Range Interpretation Comme nts TOTAL BILI (test code = 7320817813) 0.8 mg/dL 0.1-1.1 BILI UNCON (test code = 6614390052) 0.4 mg/dL 0.1-1.1 BILI CONJ (test code = 8098022107) 0.0 mg/dL 0-0.3 T PROTEIN (test code = 1687876426) 8.1 g/dL 6.3-8.2 ALBUMIN (test code = 0474768488) 4.0 g/dL 3.5-5 ALK PHOS (test code = 7147380801) 115 U/L 34-122 ALTv (test code = 1742-6) 91 U/L 5-50 H AST(SGOT) (test code = 5701381066) 78 U/L 13-40 H Lab Interpretation (test cod e = 39489-1) [facility] [id number] 11:48:54* Test Item Value Reference Range Interpretation Comme nts URIC ACID (test code = 4928560794) 5.5 mg/dL 3.6-8 Lab Interpretation (test cod e = 37307-5) [facility] Screen - ONCE [id number] 11:35:10 * Test Item Value Reference Range Interpretation Comme nts ABO & RH (test code = 20) O POSITIVE Performed at [facility] Laboratory Services - [address] Free: [phone] No. [id number] IAT (test code = 1185) Negative Performed at [facility] Laboratory Services - [address] Free: [phone] No. [id number] [facility] [place] [employer] - ONCE [id number] 11:35:10 * Test Item Value Reference Range Interpretation Comme nts ABO & RH (test code = 20) O POSITIVE Performed at [facility] Laboratory [facility] - [address] Free: [phone] No. [id number] IAT (test code = 1185) Negative Performed at [facility] Laboratory Services - [address] Free: [phone] No. [id number] [facility] [place] - ONCE [id number] 11:35:10 * Test Item Value Reference Range Interpretation Comme nts ABO & RH (test code = 20) O POSITIVE Performed at [facility] Laboratory Services - [address] [address]mqm Free: [phone] No. [id number] IAT (test code = 1185) Negative Performed at [place] [address]Toll Free: [phone] No. [id number] [facility] Confirmation (Lab Only)2022-04-12 11:20:57* Test Item Value Reference Range Interpretation Comme nts ABO & RH (test code = 20) O Positive Performed at [facility] Laboratory [facility] - [address] [address] Free: [phone] No. [id number] [facility] Confirmation (Lab Only)2022-04-12 11:20:57* Test Item Value Reference Range Interpretation Comme nts ABO & RH (test code = 20) O Positive Performed at [facility] Laboratory [facility] - [address] [address] Free: [phone] No. [id number] [facility] Confirmation (Lab Only)2022-04-12 11:20:57* Test Item Value Reference Range Interpretation Comme nts ABO & RH (test code = 20) O Positive Performed at [facility] Laboratory [facility] - [address] [address]Qgtt Free: [phone] No. [id number] [facility] WITH [id number] 11:04:29* Test Item Value Reference Range Interpretation Comme nts WBC (test code = 6690-2) See_Comment [Automated messa ge] The system which generated this result transmitted reference range: 4.20 - 10.70 10*3/?L. The reference range was not used to interpret this result as normal/abnormal. RBC (test code = 789-8) See_Comment L [Automated messa ge] The system which generated this result transmitted reference range: 4.26 - 5.52 10*6/?L. The reference range was not used to interpret this result as normal/abnormal. HGB (test code = 718-7) 9.3 g/dL 12.2-16.4 L HCT (test code = 4544-3) 27.3 % 38.4-49.3 L MCV (test code = 787-2) 91.0 fL 81.7-95.6 MCH (test code = 785-6) 31.0 pg 26.1-32.7 MCHC (test code = 786-4) 34.1 g/dL 31.2-35 RDW-SD (test code = 51451-8) 55.5 fL 38.5-51.6 H RDW-CV (test code = 788-0) 16.6 % 12.1-15.4 H PLT (test code = 777-3) See_Comment L [Automated messa ge] The system which generated this result transmitted reference range: 150 - 328 10*3/?L. The reference range was not used to interpret this result as normal/abnormal. MPV (test code = 50984-9) 10.1 fL 9.8-13 NRBC/100 WBC (test code = 9293752193) See_Comment [Automated ASP64 ssage] The system which generated this result transmitted reference range: 0.0 - 10.0 /100 WBCs. The reference range was not used to interpret this result as normal/abnormal. NRBC x10^3 (test code = 9892811377) See_Comment [Automated messa ge] The system which generated this result transmitted reference range: 10*3/?L. The reference range was not used to interpret this result as normal/abnormal. GRAN MAT (NEUT) % (test code = 770-8) 89.2 % IMM GRAN % (test code = 8525284625) 0.70 % LYMPH % (test code = 736-9) 4.9 % MONO % (test code = 5905-5) 5.2 % EOS % (test code = 713-8) 0.0 % BASO % (test code = 706-2) 0.0 % GRAN MAT x10^3(ANC) (test code = 0737274169) 6.13 10*3/uL 1.99-6.95 IMM GRAN x10^3 (test code = 5957447364) 0.05 10*3/uL 0-0.06 LYMPH x10^3 (test code = 731-0) 0.34 10*3/uL 1.09-3.23 L MONO x10^3 (test code = 742-7) 0.36 10*3/uL 0.36-1.02 EOS x10^3 (test code = 711-2) 0.06-0.53 L BASO x10^3 (test code = 704-7) 0.01-0.09 Lab Interpretation (test code = 62542-6) Abnormal [facility] WITH [id number] 11:04:29* Test Item Value Reference Range Interpretation Comme nts WBC (test code = 6690-2) See_Comment [Automated messa ge] The system which generated this result transmitted reference range: 4.20 - 10.70 10*3/?L. The reference range was not used to interpret this result as normal/abnormal. RBC (test code = 789-8) See_Comment L [Automated messa ge] The system which generated this result transmitted reference range: 4.26 - 5.52 10*6/?L. The reference range was not used to interpret this result as normal/abnormal. HGB (test code = 718-7) 9.3 g/dL 12.2-16.4 L HCT (test code = 4544-3) 27.3 % 38.4-49.3 L MCV (test code = 787-2) 91.0 fL 81.7-95.6 MCH (test code = 785-6) 31.0 pg 26.1-32.7 MCHC (test code = 786-4) 34.1 g/dL 31.2-35 RDW-SD (test code = 64462-1) 55.5 fL 38.5-51.6 H RDW-CV (test code = 788-0) 16.6 % 12.1-15.4 H PLT (test code = 777-3) See_Comment L [Automated messa ge] The system which generated this result transmitted reference range: 150 - 328 10*3/?L. The reference range was not used to interpret this result as normal/abnormal. MPV (test code = 46616-7) 10.1 fL 9.8-13 NRBC/100 WBC (test code = 4256311255) See_Comment [Automated me ssage] The system which generated this result transmitted reference range: 0.0 - 10.0 /100 WBCs. The reference range was not used to interpret this result as normal/abnormal. NRBC x10^3 (test code = 9758250984) See_Comment [Automated messa ge] The system which generated this result transmitted reference range: 10*3/?L. The reference range was not used to interpret this result as normal/abnormal. GRAN MAT (NEUT) % (test code = 770-8) 89.2 % IMM GRAN % (test code = 2360999507) 0.70 % LYMPH % (test code = 736-9) 4.9 % MONO % (test code = 5905-5) 5.2 % EOS % (test code = 713-8) 0.0 % BASO % (test code = 706-2) 0.0 % GRAN MAT x10^3(ANC) (test code = 4826905152) 6.13 10*3/uL 1.99-6.95 IMM GRAN x10^3 (test code = 7892642961) 0.05 10*3/uL 0-0.06 LYMPH x10^3 (test code = 731-0) 0.34 10*3/uL 1.09-3.23 L MONO x10^3 (test code = 742-7) 0.36 10*3/uL 0.36-1.02 EOS x10^3 (test code = 711-2) 0.06-0.53 L BASO x10^3 (test code = 704-7) 0.01-0.09 Lab Interpretation (test code = 64889-1) [facility] [id number] 11:02:12* Test Item Value Reference Range Interpretation Comme nts APTT Patient (test code = 3173-2) See_Comment [Automated messa ge] The system which generated this result transmitted reference range: 26 - 36 Seconds. The reference range was not used to interpret this result as normal/abnormal. Lab Interpretation (test code = 70068-7) [facility] Irving[facility]throm[facility] Time / [id number] 11:02:12* Test Item Value Reference Range Interpretation Comme nts PROTIME PATIENT (test code = 5964-2) See_Comment [Automated messa ge] The system which generated this result transmitted reference range: 10.1 - 12.6 Seconds. The reference range was not used to interpret this result as normal/abnormal. INR (test code = 6301-6) Normal INR <1.1; Warfarin Therapeutic range 2.0 to 3.0 or 2.5 to 3.5, depending upon the indications. Lab Interpretation (test code = 58954-3) [facility] [id number] 11:02:12* Test Item Value Reference Range Interpretation Comme nts APTT Patient (test code = 3173-2) See_Comment [Automated messa ge] The system which generated this result transmitted reference range: 26 - 36 Seconds. The reference range was not used to interpret this result as normal/abnormal. Lab Interpretation (test code = 46041-6) [facility] Irving[facility] / [id number] 11:02:12* Test Item Value Reference Range Interpretation Comme nts PROTIME PATIENT (test code = 5964-2) See_Comment [Automated messa ge] The system which generated this result transmitted reference range: 10.1 - 12.6 Seconds. The reference range was not used to interpret this result as normal/abnormal. INR (test code = 6301-6) Normal INR <1.1; Warfarin Therapeutic range 2.0 to 3.0 or 2.5 to 3.5, depending upon the indications. Lab Interpretation (test code = 50164-6) Normal [facility] [id number] 11:02:12* Test Item Value Reference Range Interpretation Comme nts APTT Patient (test code = 3173-2) See_Comment [Automated messa ge] The system which generated this result transmitted reference range: 26 - 36 Seconds. The reference range was not used to interpret this result as normal/abnormal. Lab Interpretation (test code = 91757-7) Normal [facility] METABOLIC PANEL (NA, K, CL, CO2, GLUCOSE, BUN, CREATININE, CA)2022-04-11 11:55:30* Test Item Value Reference Range Interpretation Comme nts NA (test code = 3186584526) 139 mmol/L 135-145 K (test code = 6836983405) 4.0 mmol/L 3.5-5 CL (test code = 6574684258) 111 mmol/L 98-108 H CO2 TOTAL (test code = 5852327640) 21 mmol/L 23-31 L AGAP (test code = 0995646580) 2-16 BUN (test code = 5732344470) 22 mg/dL 7-23 GLUCOSE (test code = 8859064865) 140 mg/dL 70-110 H CREATININE (test code = 5706176546) 0.81 mg/dL 0.6-1.25 CALCIUM (test code = 7641816912) 10.3 mg/dL 8.6-10.6 eGFR (test code = 9887222740) mL/min/1.73m2 MONTSERRAT (test code = MONTSERRAT) Association of Glomerular Filtration Rate (GFR) and Staging of Kidney Disease* + --+ --+ ------+| GFR (mL/min/1.73 m2) ?| With Kidney Damage ?| ?Without Kidney Damage+ --------+ --------+ +| ?>90 ?| ?Stage one ?| ? Normal ?+ ---+ ---+ -------+| ?60-89 ?| ?Stage two ?| ? Decreased GFR ? + --+ --+ ------+| ?30-59 ?| ?Stage three ?| ? Stage three ? + --+ --+ ------+| ?15-29 ?| ?Stage four ? | ? Stage four ?+ ---+ ---+ -------+| ?<15 (or dialysis) ? ?| ?Stage five ? | ? Stage five ?+ ---+ ---+ -------+ *Each stage assumes the associated GFR level has been in effect for at least three months. ?Stages 1 to 5, with or without kidney disease, indicate chronic kidney disease. Notes: Determination of stages one and two (with eGFR >59mL/min/1.73 m2) requires estimation of kidney damage for at least three months as defined by structural or functional abnormalities of the kidney, manifested by either:Pathological abnormalities or Markers of kidney damage (including abnormalities in the composition of the blood or urine or abnormalities in imaging tests). Lab Interpretation (test code = 14626-7) [facility]2022-10-19 11:55:30* Test Item Value Reference Range Interpretation Comme nts MAGNESIUM (test code = 1567969665) 1.8 mg/dL 1.7-2.4 Lab Interpretation (test cod e = 60198-9) Normal [facility] IrvingURIC [id number] 11:55:30* Test Item Value Reference Range Interpretation Comme nts URIC ACID (test code = 9749296873) 3.1 mg/dL 3.6-8 L Lab Interpretation (test cod e = 43676-4) [facility]normal [facility] IrvingLACTATE [id number] 11:55:30* Test Item Value Reference Range Interpretation Comme nts LDH (test code = 3342649761) 887 U/L 120-246 H Lab Interpretation (test cod e = 05186-9) [facility]normal [facility] IrvingHEPATIC FUNCTION PANEL (98276) (ALB,T.PRO,BILI T,BU/BC,ALT,AST,ALK PHOS)2022-04-11 11:55:30* Test Item Value Reference Range Interpretation Comme nts TOTAL BILI (test code = 9135032199) 0.5 mg/dL 0.1-1.1 BILI UNCON (test code = 1974045763) 0.2 mg/dL 0.1-1.1 BILI CONJ (test code = 4748352556) 0.0 mg/dL 0-0.3 T PROTEIN (test code = 3635125542) 7.3 g/dL 6.3-8.2 ALBUMIN (test code = 1013750409) 3.5 g/dL 3.5-5 ALK PHOS (test code = 4242254533) 109 U/L 34-122 ALTv (test code = 1742-6) 89 U/L 5-50 H AST(SGOT) (test code = 6389270233) 77 U/L 13-40 H Lab Interpretation (test cod e = 94377-5) [facility] (NA, K, CL, CO2, GLUCOSE, BUN, CREATININE, CA)2022-04-11 11:55:30* Test Item Value Reference Range Interpretation Comme nts NA (test code = 2454073199) 139 mmol/L 135-145 K (test code = 4253668336) 4.0 mmol/L 3.5-5 CL (test code = 0213370419) 111 mmol/L 98-108 H CO2 TOTAL (test code = 4696339219) 21 mmol/L 23-31 L AGAP (test code = 2250580484) 2-16 BUN (test code = 4130743713) 22 mg/dL 7-23 GLUCOSE (test code = 1546306681) 140 mg/dL 70-110 H CREATININE (test code = 6339410710) 0.81 mg/dL 0.6-1.25 CALCIUM (test code = 3605892918) 10.3 mg/dL 8.6-10.6 eGFR (test code = 7820604522) mL/min/1.73m2 MONTSERRAT (test code = MONTSERRAT) Association of Glomerular Filtration Rate (GFR) and Staging of Kidney Disease* + --+ --+ ------+| GFR (mL/min/1.73 m2) ?| With Kidney Damage ?| ?Without Kidney Damage+ --------+ --------+ +| ?>90 ?| ?Stage one ?| ? Normal ?+ ---+ ---+ -------+| ?60-89 ?| ?Stage two ?| ? Decreased GFR ? + --+ --+ ------+| ?30-59 ?| ?Stage three ?| ? Stage three ? + --+ --+ ------+| ?15-29 ?| ?Stage four ? | ? Stage four ?+ ---+ ---+ -------+| ?<15 (or dialysis) ? ?| ?Stage five ? | ? Stage five ?+ ---+ ---+ -------+ *Each stage assumes the associated GFR level has been in effect for at least three months. ?Stages 1 to 5, with or without kidney disease, indicate chronic kidney disease. Notes: Determination of stages one and two (with eGFR >59mL/min/1.73 m2) requires estimation of kidney damage for at least three months as defined by structural or functional abnormalities of the kidney, manifested by either:Pathological abnormalities or Markers of kidney damage (including abnormalities in the composition of the blood or urine or abnormalities in imaging tests). Lab Interpretation (test code = 75234-7) [facility]2022-10-19 11:55:30* Test Item Value Reference Range Interpretation Comme nts MAGNESIUM (test code = 9344103514) 1.8 mg/dL 1.7-2.4 Lab Interpretation (test cod e = 18368-9) Normal [facility] IrvingUR[facility] [id number] 11:55:30* Test Item Value Reference Range Interpretation Comme nts URIC ACID (test code = 6200002783) 3.1 mg/dL 3.6-8 L Lab Interpretation (test cod e = 17468-7) Abnormal [facility] IrvingLACTATE [id number] 11:55:30* Test Item Value Reference Range Interpretation Comme nts LDH (test code = 4249683317) 887 U/L 120-246 H Lab Interpretation (test cod e = 53294-9) [facility]normal [facility] IrvingHEPATIC FUNCTION PANEL (42350) (ALB,T.PRO,BILI T,BU/BC,ALT,AST,ALK PHOS)2022-04-11 11:55:30* Test Item Value Reference Range Interpretation Comme nts TOTAL BILI (test code = 6547609026) 0.5 mg/dL 0.1-1.1 BILI UNCON (test code = 9198386168) 0.2 mg/dL 0.1-1.1 BILI CONJ (test code = 9310072403) 0.0 mg/dL 0-0.3 T PROTEIN (test code = 4369962337) 7.3 g/dL 6.3-8.2 ALBUMIN (test code = 2324051565) 3.5 g/dL 3.5-5 ALK PHOS (test code = 8328793180) 109 U/L 34-122 ALTv (test code = 1742-6) 89 U/L 5-50 H AST(SGOT) (test code = 7260964741) 77 U/L 13-40 H Lab Interpretation (test cod e = 42370-0) Abnormal [facility] WITH [id number] 11:05:45* Test Item Value Reference Range Interpretation Comme nts WBC (test code = 6690-2) See_Comment [Automated messa ge] The system which generated this result transmitted reference range: 4.20 - 10.70 10*3/?L. The reference range was not used to interpret this result as normal/abnormal. RBC (test code = 789-8) See_Comment L [Automated messa ge] The system which generated this result transmitted reference range: 4.26 - 5.52 10*6/?L. The reference range was not used to interpret this result as normal/abnormal. HGB (test code = 718-7) 8.4 g/dL 12.2-16.4 L HCT (test code = 4544-3) 24.7 % 38.4-49.3 L MCV (test code = 787-2) 90.1 fL 81.7-95.6 MCH (test code = 785-6) 30.7 pg 26.1-32.7 MCHC (test code = 786-4) 34.0 g/dL 31.2-35 RDW-SD (test code = 62607-2) 52.8 fL 38.5-51.6 H RDW-CV (test code = 788-0) 16.2 % 12.1-15.4 H PLT (test code = 777-3) See_Comment L [Automated messa ge] The system which generated this result transmitted reference range: 150 - 328 10*3/?L. The reference range was not used to interpret this result as normal/abnormal. MPV (test code = 76335-4) 10.8 fL 9.8-13 NRBC/100 WBC (test code = 8823972224) See_Comment [Automated me ssage] The system which generated this result transmitted reference range: 0.0 - 10.0 /100 WBCs. The reference range was not used to interpret this result as normal/abnormal. NRBC x10^3 (test code = 5055026819) See_Comment [Automated messa ge] The system which generated this result transmitted reference range: 10*3/?L. The reference range was not used to interpret this result as normal/abnormal. GRAN MAT (NEUT) % (test code = 770-8) 86.8 % IMM GRAN % (test code = 3430757780) 0.60 % LYMPH % (test code = 736-9) 6.3 % MONO % (test code = 5905-5) 6.2 % EOS % (test code = 713-8) 0.0 % BASO % (test code = 706-2) 0.1 % GRAN MAT x10^3(ANC) (test code = 0395056602) 6.02 10*3/uL 1.99-6.95 IMM GRAN x10^3 (test code = 1140083610) 0.04 10*3/uL 0-0.06 LYMPH x10^3 (test code = 731-0) 0.44 10*3/uL 1.09-3.23 L MONO x10^3 (test code = 742-7) 0.43 10*3/uL 0.36-1.02 EOS x10^3 (test code = 711-2) 0.06-0.53 L BASO x10^3 (test code = 704-7) 0.01-0.09 Lab Interpretation (test code = 73038-7) Abnormal [facility] WITH [id number] 11:05:45* Test Item Value Reference Range Interpretation Comme nts WBC (test code = 6690-2) See_Comment [Automated messa ge] The system which generated this result transmitted reference range: 4.20 - 10.70 10*3/?L. The reference range was not used to interpret this result as normal/abnormal. RBC (test code = 789-8) See_Comment L [Automated messa ge] The system which generated this result transmitted reference range: 4.26 - 5.52 10*6/?L. The reference range was not used to interpret this result as normal/abnormal. HGB (test code = 718-7) 8.4 g/dL 12.2-16.4 L HCT (test code = 4544-3) 24.7 % 38.4-49.3 L MCV (test code = 787-2) 90.1 fL 81.7-95.6 MCH (test code = 785-6) 30.7 pg 26.1-32.7 MCHC (test code = 786-4) 34.0 g/dL 31.2-35 RDW-SD (test code = 88639-4) 52.8 fL 38.5-51.6 H RDW-CV (test code = 788-0) 16.2 % 12.1-15.4 H PLT (test code = 777-3) See_Comment L [Automated DineGasma ge] The system which generated this result transmitted reference range: 150 - 328 10*3/?L. The reference range was not used to interpret this result as normal/abnormal. MPV (test code = 70411-5) 10.8 fL 9.8-13 NRBC/100 WBC (test code = 6528212885) See_Comment [Automated ASP64 ssage] The system which generated this result transmitted reference range: 0.0 - 10.0 /100 WBCs. The reference range was not used to interpret this result as normal/abnormal. NRBC x10^3 (test code = 7443315207) See_Comment [Automated DineGasma ge] The system which generated this result transmitted reference range: 10*3/?L. The reference range was not used to interpret this result as normal/abnormal. GRAN MAT (NEUT) % (test code = 770-8) 86.8 % IMM GRAN % (test code = 9237719522) 0.60 % LYMPH % (test code = 736-9) 6.3 % MONO % (test code = 5905-5) 6.2 % EOS % (test code = 713-8) 0.0 % BASO % (test code = 706-2) 0.1 % GRAN MAT x10^3(ANC) (test code = 4395477729) 6.02 10*3/uL 1.99-6.95 IMM GRAN x10^3 (test code = 4524852952) 0.04 10*3/uL 0-0.06 LYMPH x10^3 (test code = 731-0) 0.44 10*3/uL 1.09-3.23 L MONO x10^3 (test code = 742-7) 0.43 10*3/uL 0.36-1.02 EOS x10^3 (test code = 711-2) 0.06-0.53 L BASO x10^3 (test code = 704-7) 0.01-0.09 Lab Interpretation (test code = 12278-8) Abnormal [facility] CULTURE [id number] 01:01:10* Test Item Value Reference Range Interpretation Comme nts Blood Culture-Aerobic (test code = 49224-2) No organisms isolated No growth Previous preliminary verified result was Culture In Progress on 04/05/2022 at 2302 CDTPrevious preliminary verified result was No growth at 24 hours on 04/06/2022 at 2001 CDTPrevious preliminary verified result was No growth at 48 hours on 04/07/2022 at 2001 CDTPrevious preliminary verified result was No growth at 72 hours on 04/08/2022 at 2001 CDT Blood Culture-Anaerobic (test code = 89704-0) No organisms isolated No growth Previous preliminary verified result was Culture In Progress on 04/05/2022 at 2302 CDTPrevious preliminary verified result was No growth at 24 hours on 04/06/2022 at 2001 CDTPrevious preliminary verified result was No growth at 48 hours on 04/07/2022 at 2001 CDTPrevious preliminary verified result was No growth at 72 hours on 04/08/2022 at 2001 CDT Lab Interpretation (test code = 00006-1) Normal [facility] CULTURE [id number] 01:01:10* Test Item Value Reference Range Interpretation Comme nts Blood Culture-Aerobic (test code = 00625-7) No organisms isolated No growth Previous preliminary verified result was Culture In Progress on 04/05/2022 at 2302 CDTPrevious preliminary verified result was No growth at 24 hours on 04/06/2022 at 2001 CDTPrevious preliminary verified result was No growth at 48 hours on 04/07/2022 at 2001 CDTPrevious preliminary verified result was No growth at 72 hours on 04/08/2022 at 2001 CDT Blood Culture-Anaerobic (test code = 48790-6) No organisms isolated No growth Previous preliminary verified result was Culture In Progress on 04/05/2022 at 2302 CDTPrevious preliminary verified result was No growth at 24 hours on 04/06/2022 at 2001 CDTPrevious preliminary verified result was No growth at 48 hours on 04/07/2022 at 2001 CDTPrevious preliminary verified result was No growth at 72 hours on 04/08/2022 at 2001 T Lab Interpretation (test code = 58710-0) [facility] CULTURE [id number] 01:01:10* Test Item Value Reference Range Interpretation Comme nts Blood Culture-Aerobic (test code = 54850-6) No organisms isolated No growth Previous preliminary verified result was Culture In Progress on 04/05/2022 at 2302 CDTPrevious preliminary verified result was No growth at 24 hours on 04/06/2022 at 2001 CDTPrevious preliminary verified result was No growth at 48 hours on 04/07/2022 at 2001 CDTPrevious preliminary verified result was No growth at 72 hours on 04/08/2022 at 2001 T Blood Culture-Anaerobic (test code = 88241-9) No organisms isolated No growth Previous preliminary verified result was Culture In Progress on 04/05/2022 at 2302 CDTPrevious preliminary verified result was No growth at 24 hours on 04/06/2022 at 2001 CDTPrevious preliminary verified result was No growth at 48 hours on 04/07/2022 at 2001 CDTPrevious preliminary verified result was No growth at 72 hours on 04/08/2022 at 2001 T Lab Interpretation (test code = 20334-2) [facility] CULTURE [id number] 01:01:09* Test Item Value Reference Range Interpretation Comme nts Blood Culture-Aerobic (test code = 46901-0) No organisms isolated No growth Previous preliminary verified result was Culture In Progress on 04/05/2022 at 2302 CDTPrevious preliminary verified result was No growth at 24 hours on 04/06/2022 at 2001 CDTPrevious preliminary verified result was No growth at 48 hours on 04/07/2022 at 2001 CDTPrevious preliminary verified result was No growth at 72 hours on 04/08/2022 at 2001 T Blood Culture-Anaerobic (test code = 12464-3) No organisms isolated No growth Previous preliminary verified result was Culture In Progress on 04/05/2022 at 2302 CDTPrevious preliminary verified result was No growth at 24 hours on 04/06/2022 at 2001 CDTPrevious preliminary verified result was No growth at 48 hours on 04/07/2022 at 2001 CDTPrevious preliminary verified result was No growth at 72 hours on 04/08/2022 at 2001 T Lab Interpretation (test code = 75815-9) [facility] [id number] 01:01:09* Test Item Value Reference Range Interpretation Comme nts Blood Culture-Aerobic (test code = 34380-5) No organisms isolated No growth Previous preliminary verified result was Culture In Progress on 04/05/2022 at 2302 CDTPrevious preliminary verified result was No growth at 24 hours on 04/06/2022 at 2001 CDTPrevious preliminary verified result was No growth at 48 hours on 04/07/2022 at 2001 [facility] result was No growth at 72 hours on 04/08/2022 at 2001 T Blood Culture-Anaerobic (test code = 74876-6) No organisms isolated No growth Previous preliminary verified result was Culture In Progress on 04/05/2022 at 2302 CDTPrevious preliminary verified result was No growth at 24 hours on 04/06/2022 at 2001 CDTPrevious preliminary verified result was No growth at 48 hours on 04/07/2022 at 2001 CDTPrevious preliminary verified result was No growth at 72 hours on 04/08/2022 at 2001 CDT Lab Interpretation (test code = 47781-0) [facility] [id number] 13:00:00* Test Item Value Reference Range Interpretation Comme nts LDH (test code = 7186655728) 1037 U/L 120-246 H Lab Interpretation (test cod e = 58976-0) [facility]normal [facility]CT[facility] [id number] 13:00:00* Test Item Value Reference Range Interpretation Comme nts LDH (test code = 2748789632) 1037 U/L 120-246 H Lab Interpretation (test cod e = 38708-8) [facility] (NA, K, CL, CO2, GLUCOSE, BUN, CREATININE, CA)2022-04-10 12:51:07* Test Item Value Reference Range Interpretation Comme nts NA (test code = 3414107294) 138 mmol/L 135-145 K (test code = 6209894311) 3.9 mmol/L 3.5-5 CL (test code = 4335329919) 107 mmol/L 98-108 CO2 TOTAL (test code = 7056334128) 19 mmol/L 23-31 L AGAP (test code = 9880173104) 2-16 BUN (test code = 1177192831) 17 mg/dL 7-23 GLUCOSE (test code = 0255680576) 194 mg/dL 70-110 H CREATININE (test code = 8882821154) 0.90 mg/dL 0.6-1.25 CALCIUM (test code = 2818428764) 10.2 mg/dL 8.6-10.6 eGFR (test code = 5998416649) mL/min/1.73m2 MONTSERRAT (test code = MONTSERRAT) Association of Glomerular Filtration Rate (GFR) and Staging of Kidney Disease* + --+ --+ ------+| GFR (mL/min/1.73 m2) ?| With Kidney Damage ?| ?Without Kidney Damage+ --------+ --------+ +| ?>90 ?| ?Stage one ?| ? Normal ?+ ---+ ---+ -------+| ?60-89 ?| ?Stage two ?| ? Decreased GFR ? + --+ --+ ------+| ?30-59 ?| ?Stage three ?| ? Stage three ? + --+ --+ ------+| ?15-29 ?| ?Stage four ? | ? Stage four ?+ ---+ ---+ -------+| ?<15 (or dialysis) ? ?| ?Stage five ? | ? Stage five ?+ ---+ ---+ -------+ *Each stage assumes the associated GFR level has been in effect for at least three months. ?Stages 1 to 5, with or without kidney disease, indicate chronic kidney disease. Notes: Determination of stages one and two (with eGFR >59mL/min/1.73 m2) requires estimation of kidney damage for at least three months as defined by structural or functional abnormalities of the kidney, manifested by either:Pathological abnormalities or Markers of kidney damage (including abnormalities in the composition of the blood or urine or abnormalities in imaging tests). Lab Interpretation (test code = 49769-2) Abnormal [facility] METABOLIC PANEL (NA, K, CL, CO2, GLUCOSE, BUN, CREATININE, CA)2022-04-10 12:51:07* Test Item Value Reference Range Interpretation Comme nts NA (test code = 0213142009) 138 mmol/L 135-145 K (test code = 2089271731) 3.9 mmol/L 3.5-5 CL (test code = 7372569850) 107 mmol/L 98-108 CO2 TOTAL (test code = 4694423764) 19 mmol/L 23-31 L AGAP (test code = 5214557086) 2-16 BUN (test code = 7609844475) 17 mg/dL 7-23 GLUCOSE (test code = 7674832157) 194 mg/dL 70-110 H CREATININE (test code = 5084072485) 0.90 mg/dL 0.6-1.25 CALCIUM (test code = 5593058920) 10.2 mg/dL 8.6-10.6 eGFR (test code = 9388189116) mL/min/1.73m2 MONTSERRAT (test code = MONTSERRAT) Association of Glomerular Filtration Rate (GFR) and Staging of Kidney Disease* + --+ --+ ------+| GFR (mL/min/1.73 m2) ?| With Kidney Damage ?| ?Without Kidney Damage+ --------+ --------+ +| ?>90 ?| ?Stage one ?| ? Normal ?+ ---+ ---+ -------+| ?60-89 ?| ?Stage two ?| ? Decreased GFR ? + --+ --+ ------+| ?30-59 ?| ?Stage three ?| ? Stage three ? + --+ --+ ------+| ?15-29 ?| ?Stage four ? | ? Stage four ?+ ---+ ---+ -------+| ?<15 (or dialysis) ? ?| ?Stage five ? | ? Stage five ?+ ---+ ---+ -------+ *Each stage assumes the associated GFR level has been in effect for at least three months. ?Stages 1 to 5, with or without kidney disease, indicate chronic kidney disease. Notes: Determination of stages one and two (with eGFR >59mL/min/1.73 m2) requires estimation of kidney damage for at least three months as defined by structural or functional abnormalities of the kidney, manifested by either:Pathological abnormalities or Markers of kidney damage (including abnormalities in the composition of the blood or urine or abnormalities in imaging tests). Lab Interpretation (test code = 80471-7) [facility]normal [facility]2022-10-18 11:44:39* Test Item Value Reference Range Interpretation Comme nts MAGNESIUM (test code = 4242174524) 1.6 mg/dL 1.7-2.4 L Lab Interpretation (test cod e = 42318-9) [facility]normal [facility] Irving[facility] PAN[facility] (82113) (ALB,T.PRO,BILI T,BU/BC,ALT,AST,ALK PHOS)2022-04-10 11:44:39* Test Item Value Reference Range Interpretation Comme nts TOTAL BILI (test code = 1012893254) 0.7 mg/dL 0.1-1.1 BILI UNCON (test code = 2217644512) 0.3 mg/dL 0.1-1.1 BILI CONJ (test code = 0352786840) 0.0 mg/dL 0-0.3 T PROTEIN (test code = 0732978395) 7.7 g/dL 6.3-8.2 ALBUMIN (test code = 3117735761) 3.7 g/dL 3.5-5 ALK PHOS (test code = 0844166908) 139 U/L 34-122 H ALTv (test code = 1742-6) 111 U/L 5-50 H AST(SGOT) (test code = 1298889832) 125 U/L 13-40 H Lab Interpretation (test cod e = 67525-9) [facility]normal [facility] IrvingUR[facility] [id number] 11:44:39* Test Item Value Reference Range Interpretation Comme nts URIC ACID (test code = 5329619258) 2.8 mg/dL 3.6-8 L Lab Interpretation (test cod e = 30158-3) [facility]normal [facility]2022-10-18 11:44:39* Test Item Value Reference Range Interpretation Comme nts MAGNESIUM (test code = 7812392972) 1.6 mg/dL 1.7-2.4 L Lab Interpretation (test cod e = 00784-4) Abnormal [facility] (65699) (ALB,T.PRO,BILI T,BU/BC,ALT,AST,ALK PHOS)2022-04-10 11:44:39* Test Item Value Reference Range Interpretation Comme nts TOTAL BILI (test code = 2918774269) 0.7 mg/dL 0.1-1.1 BILI UNCON (test code = 9223527172) 0.3 mg/dL 0.1-1.1 BILI CONJ (test code = 9020335987) 0.0 mg/dL 0-0.3 T PROTEIN (test code = 4130809558) 7.7 g/dL 6.3-8.2 ALBUMIN (test code = 5659769906) 3.7 g/dL 3.5-5 ALK PHOS (test code = 3676671877) 139 U/L 34-122 H ALTv (test code = 1742-6) 111 U/L 5-50 H AST(SGOT) (test code = 5508191126) 125 U/L 13-40 H Lab Interpretation (test cod e = 33012-5) [facility]normal [facility] [id number] 11:44:39* Test Item Value Reference Range Interpretation Comme nts URIC ACID (test code = 8184269172) 2.8 mg/dL 3.6-8 L Lab Interpretation (test cod e = 27659-2) Abnormal [facility] WITH [id number] 11:43:58* Test Item Value Reference Range Interpretation Comme nts WBC (test code = 6690-2) See_Comment L [Automated messa ge] The system which generated this result transmitted reference range: 4.20 - 10.70 10*3/?L. The reference range was not used to interpret this result as normal/abnormal. RBC (test code = 789-8) See_Comment L [Automated messa ge] The system which generated this result transmitted reference range: 4.26 - 5.52 10*6/?L. The reference range was not used to interpret this result as normal/abnormal. HGB (test code = 718-7) 8.7 g/dL 12.2-16.4 L HCT (test code = 4544-3) 25.3 % 38.4-49.3 L MCV (test code = 787-2) 90.4 fL 81.7-95.6 MCH (test code = 785-6) 31.1 pg 26.1-32.7 MCHC (test code = 786-4) 34.4 g/dL 31.2-35 RDW-SD (test code = 34450-6) 52.8 fL 38.5-51.6 H RDW-CV (test code = 788-0) 15.9 % 12.1-15.4 H PLT (test code = 777-3) See_Comment L [Automated DineGasma ge] The system which generated this result transmitted reference range: 150 - 328 10*3/?L. The reference range was not used to interpret this result as normal/abnormal. MPV (test code = 18532-1) 10.8 fL 9.8-13 IPF % (test code = 7322164409) 4.4 % 1.2-10.7 Platelet count measured by fluorescence method. NRBC/100 WBC (test code = 9752064212) See_Comment [Automated ASP64 ssage] The system which generated this result transmitted reference range: 0.0 - 10.0 /100 WBCs. The reference range was not used to interpret this result as normal/abnormal. NRBC x10^3 (test code = 2763190113) See_Comment [Automated DineGasma ge] The system which generated this result transmitted reference range: 10*3/?L. The reference range was not used to interpret this result as normal/abnormal. GRAN MAT (NEUT) % (test code = 770-8) 81.9 % IMM GRAN % (test code = 7173083659) 0.60 % LYMPH % (test code = 736-9) 14.6 % MONO % (test code = 5905-5) 2.9 % EOS % (test code = 713-8) 0.0 % BASO % (test code = 706-2) 0.0 % GRAN MAT x10^3(ANC) (test code = 8036962255) 2.81 10*3/uL 1.99-6.95 IMM GRAN x10^3 (test code = 4145059836) 0-0.06 LYMPH x10^3 (test code = 731-0) 0.50 10*3/uL 1.09-3.23 L MONO x10^3 (test code = 742-7) 0.10 10*3/uL 0.36-1.02 L EOS x10^3 (test code = 711-2) 0.06-0.53 L BASO x10^3 (test code = 704-7) 0.01-0.09 Lab Interpretation (test code = 21360-0) Abnormal [facility] WITH [id number] 11:43:58* Test Item Value Reference Range Interpretation Comme nts WBC (test code = 6690-2) See_Comment L [Automated messa ge] The system which generated this result transmitted reference range: 4.20 - 10.70 10*3/?L. The reference range was not used to interpret this result as normal/abnormal. RBC (test code = 789-8) See_Comment L [Automated messa ge] The system which generated this result transmitted reference range: 4.26 - 5.52 10*6/?L. The reference range was not used to interpret this result as normal/abnormal. HGB (test code = 718-7) 8.7 g/dL 12.2-16.4 L HCT (test code = 4544-3) 25.3 % 38.4-49.3 L MCV (test code = 787-2) 90.4 fL 81.7-95.6 MCH (test code = 785-6) 31.1 pg 26.1-32.7 MCHC (test code = 786-4) 34.4 g/dL 31.2-35 RDW-SD (test code = 27547-5) 52.8 fL 38.5-51.6 H RDW-CV (test code = 788-0) 15.9 % 12.1-15.4 H PLT (test code = 777-3) See_Comment L [Automated messa ge] The system which generated this result transmitted reference range: 150 - 328 10*3/?L. The reference range was not used to interpret this result as normal/abnormal. MPV (test code = 44498-8) 10.8 fL 9.8-13 IPF % (test code = 5680858870) 4.4 % 1.2-10.7 Platelet count measured by fluorescence method. NRBC/100 WBC (test code = 9501470701) See_Comment [Automated me ssage] The system which generated this result transmitted reference range: 0.0 - 10.0 /100 WBCs. The reference range was not used to interpret this result as normal/abnormal. NRBC x10^3 (test code = 1962091240) See_Comment [Automated messa ge] The system which generated this result transmitted reference range: 10*3/?L. The reference range was not used to interpret this result as normal/abnormal. GRAN MAT (NEUT) % (test code = 770-8) 81.9 % IMM GRAN % (test code = 0237329542) 0.60 % LYMPH % (test code = 736-9) 14.6 % MONO % (test code = 5905-5) 2.9 % EOS % (test code = 713-8) 0.0 % BASO % (test code = 706-2) 0.0 % GRAN MAT x10^3(ANC) (test code = 0291565519) 2.81 10*3/uL 1.99-6.95 IMM GRAN x10^3 (test code = 6742625658) 0-0.06 LYMPH x10^3 (test code = 731-0) 0.50 10*3/uL 1.09-3.23 L MONO x10^3 (test code = 742-7) 0.10 10*3/uL 0.36-1.02 L EOS x10^3 (test code = 711-2) 0.06-0.53 L BASO x10^3 (test code = 704-7) 0.01-0.09 Lab Interpretation (test code = 70971-8) [facility]normal [facility]-2-MICROGLOBULIN, [id number] 06:36:39 * Test Item Value Reference Range Interpretation Comme nts B2M, SERUM (test code = 1952-1) 7 mg/L 0.8-2.4 H Performed By: [address] [id number] Director: Carmelo Muñoz MD, PhD Lab Interpretation (test code = 72575-1) [facility]normal [facility]IR[facility] (HCV) BY QUANTITATIVE NAAT 2022-04-07 14:17:11* Test Item Value Reference Range Interpretation Comme nts HCV Quantitative NAAT - log IU/mL (test code = 83492-8) Not Detected log IU/mL HCV Quantitative NAAT - IU/mL (test code = 65076-8) Not Detected IU/mL HCV Quantitative Interpretation (test code = 6285601660) Detected Not Detected A MONTSERRAT (test code = MONTSERRAT) The Aptima HCV Deondre nt Dx assay is an FDA-approved real-time audio visual engineer-mediate d amplification (TMA) test used for both detection and quantitation of hepatitis C virus (HCV) RNA in human serum and plasma from HCV-infected individuals. ?It is intended for use as an aid in the diagnosis of active HCV infection and the management of HCV-infected patients undergoing HCV antiviral drug therapy. ?It is not approved for use as a screening test for the presence of HCV RNA in blood or blood products. The quantitative range of this assay is 1.00 - 8.00 log IU/mL or 10 - 100,000,000 IU/mL. An interpretation of "Not Detected" does not rule out the presence of inhibitors in the patient specimen or HCV RNA concentration below the level of detection of the test. ?Care should be taken when interpreting any single viral load determination. Detected, not Quantifiable: HCV RNA detected, but at a level below 10 IU/mL (1.0 log IU/mL). ?HCV RNA concentration is below the lower limit of quantitation of the assay. Indeterminate: Error indicated in the generation of the result. ?Please submit a new specimen for repeat testing if clinically indicated. Lab Interpretation (test code = 48714-3) [facility]HCV[facility] BY QUANTITATIVE NAAT 2022-04-07 14:17:11* Test Item Value Reference Range Interpretation Comme nts HCV Quantitative NAAT - log IU/mL (test code = 32558-6) Not Detected log IU/mL HCV Quantitative NAAT - IU/mL (test code = 36376-4) Not Detected IU/mL HCV Quantitative Interpretation (test code = 1357609057) Detected Not Detected A MONTSERRAT (test code = MONTSERRAT) The Aptima HCV Deondre nt Dx assay is an FDA-approved real-time audio visual engineer-mediate d amplification (TMA) test used for both detection and quantitation of hepatitis C virus (HCV) RNA in human serum and plasma from HCV-infected individuals. ?It is intended for use as an aid in the diagnosis of active HCV infection and the management of HCV-infected patients undergoing HCV antiviral drug therapy. ?It is not approved for use as a screening test for the presence of HCV RNA in blood or blood products. The quantitative range of this assay is 1.00 - 8.00 log IU/mL or 10 - 100,000,000 IU/mL. An interpretation of "Not Detected" does not rule out the presence of inhibitors in the patient specimen or HCV RNA concentration below the level of detection of the test. ?Care should be taken when interpreting any single viral load determination. Detected, not Quantifiable: HCV RNA detected, but at a level below 10 IU/mL (1.0 log IU/mL). ?HCV RNA concentration is below the lower limit of quantitation of the assay. Indeterminate: Error indicated in the generation of the result. ?Please submit a new specimen for repeat testing if clinically indicated. Lab Interpretation (test code = 27654-1) [facility]HCV[facility] BY QUANTITATIVE NAAT 2022-04-07 14:17:11* Test Item Value Reference Range Interpretation Comme nts HCV Quantitative NAAT - log IU/mL (test code = 15108-4) Not Detected log IU/mL HCV Quantitative NAAT - IU/mL (test code = 66712-5) Not Detected IU/mL HCV Quantitative Interpretation (test code = 2973201981) Detected Not Detected A MONTSERRAT (test code = MONTSERRAT) The Aptima HCV Deondre nt Dx assay is an FDA-approved real-time audio visual engineer-mediate d amplification (TMA) test used for both detection and quantitation of hepatitis C virus (HCV) RNA in human serum and plasma from HCV-infected individuals. ?It is intended for use as an aid in the diagnosis of active HCV infection and the management of HCV-infected patients undergoing HCV antiviral drug therapy. ?It is not approved for use as a screening test for the presence of HCV RNA in blood or blood products. The quantitative range of this assay is 1.00 - 8.00 log IU/mL or 10 - 100,000,000 IU/mL. An interpretation of "Not Detected" does not rule out the presence of inhibitors in the patient specimen or HCV RNA concentration below the level of detection of the test. ?Care should be taken when interpreting any single viral load determination. Detected, not Quantifiable: HCV RNA detected, but at a level below 10 IU/mL (1.0 log IU/mL). ?HCV RNA concentration is below the lower limit of quantitation of the assay. Indeterminate: Error indicated in the generation of the result. ?Please submit a new specimen for repeat testing if clinically indicated. Lab Interpretation (test code = 92200-2) [facility]normal [facility]HCV) BY QUANTITATIVE NAAT 2022-04-07 14:17:11* Test Item Value Reference Range Interpretation Comme nts HCV Quantitative NAAT - log IU/mL (test code = 27627-7) Not Detected log IU/mL HCV Quantitative NAAT - IU/mL (test code = 99212-5) Not Detected IU/mL HCV Quantitative Interpretation (test code = 5715079179) Detected Not Detected A MONTSERRAT (test code = MONTSERRAT) The Aptima HCV Deondre nt Dx assay is an FDA-approved real-time audio visual engineer-mediate d amplification (TMA) test used for both detection and quantitation of hepatitis C virus (HCV) RNA in human serum and plasma from HCV-infected individuals. ?It is intended for use as an aid in the diagnosis of active HCV infection and the management of HCV-infected patients undergoing HCV antiviral drug therapy. ?It is not approved for use as a screening test for the presence of HCV RNA in blood or blood products. The quantitative range of this assay is 1.00 - 8.00 log IU/mL or 10 - 100,000,000 IU/mL. An interpretation of "Not Detected" does not rule out the presence of inhibitors in the patient specimen or HCV RNA concentration below the level of detection of the test. ?Care should be taken when interpreting any single viral load determination. Detected, not Quantifiable: HCV RNA detected, but at a level below 10 IU/mL (1.0 log IU/mL). ?HCV RNA concentration is below the lower limit of quantitation of the assay. Indeterminate: Error indicated in the generation of the result. ?Please submit a new specimen for repeat testing if clinically indicated. Lab Interpretation (test code = 48585-3) [facility]normal [facility] Irving[facility]IZ[facility] [id number] 20:17:39* Test Item Value Reference Range Interpretation Comme nts IONIZED CA (test code = 9397578620) 5.60 mg/dL 4.5-5.3 H PH SERUM (test code = 1669189128) 7.35-7.45 H Lab Interpretation (test cod e = 15537-9) [facility]normal [facility] [id number] 20:17:39* Test Item Value Reference Range Interpretation Comme nts IONIZED CA (test code = 7390744841) 5.60 mg/dL 4.5-5.3 H PH SERUM (test code = 4140092171) 7.35-7.45 H Lab Interpretation (test cod e = 97945-4) Abnormal [facility] METABOLIC PANEL (NA, K, CL, CO2, GLUCOSE, BUN, CREATININE, CA)2022-04-06 20:02:38* Test Item Value Reference Range Interpretation Comme nts NA (test code = 7267422515) 138 mmol/L 135-145 K (test code = 8902427752) 3.7 mmol/L 3.5-5 CL (test code = 5585632735) 103 mmol/L 98-108 CO2 TOTAL (test code = 5573942570) 25 mmol/L 23-31 AGAP (test code = 3793591935) 2-16 BUN (test code = 7825872908) 22 mg/dL 7-23 GLUCOSE (test code = 3348965829) 91 mg/dL 70-110 CREATININE (test code = 6071715591) 1.08 mg/dL 0.6-1.25 CALCIUM (test code = 9898431096) 10.9 mg/dL 8.6-10.6 H eGFR (test code = 2288159086) mL/min/1.73m2 MONTSERRAT (test code = MONTSERRAT) Association of Glomerular Filtration Rate (GFR) and Staging of Kidney Disease* + --+ --+ ------+| GFR (mL/min/1.73 m2) ?| With Kidney Damage ?| ?Without Kidney Damage+ --------+ --------+ +| ?>90 ?| ?Stage one ?| ? Normal ?+ ---+ ---+ -------+| ?60-89 ?| ?Stage two ?| ? Decreased GFR ? + --+ --+ ------+| ?30-59 ?| ?Stage three ?| ? Stage three ? + --+ --+ ------+| ?15-29 ?| ?Stage four ? | ? Stage four ?+ ---+ ---+ -------+| ?<15 (or dialysis) ? ?| ?Stage five ? | ? Stage five ?+ ---+ ---+ -------+ *Each stage assumes the associated GFR level has been in effect for at least three months. ?Stages 1 to 5, with or without kidney disease, indicate chronic kidney disease. Notes: Determination of stages one and two (with eGFR >59mL/min/1.73 m2) requires estimation of kidney damage for at least three months as defined by structural or functional abnormalities of the kidney, manifested by either:Pathological abnormalities or Markers of kidney damage (including abnormalities in the composition of the blood or urine or abnormalities in imaging tests). Lab Interpretation (test code = 23369-6) [facility]normal [facility] Irving[facility] [id number] 20:02:38* Test Item Value Reference Range Interpretation Comme nts URIC ACID (test code = 4203651938) 9.2 mg/dL 3.6-8 H Lab Interpretation (test cod e = 51300-7) [facility] (NA, K, CL, CO2, GLUCOSE, BUN, CREATININE, CA)2022-04-06 20:02:38* Test Item Value Reference Range Interpretation Comme nts NA (test code = 2953628320) 138 mmol/L 135-145 K (test code = 9934152168) 3.7 mmol/L 3.5-5 CL (test code = 8031714989) 103 mmol/L 98-108 CO2 TOTAL (test code = 3515101492) 25 mmol/L 23-31 AGAP (test code = 0427564419) 2-16 BUN (test code = 7630118567) 22 mg/dL 7-23 GLUCOSE (test code = 1252879508) 91 mg/dL 70-110 CREATININE (test code = 8053216559) 1.08 mg/dL 0.6-1.25 CALCIUM (test code = 3870025696) 10.9 mg/dL 8.6-10.6 H eGFR (test code = 1505761637) mL/min/1.73m2 MONTSERRAT (test code = MONTSERRAT) Association of Glomerular Filtration Rate (GFR) and Staging of Kidney Disease* + --+ --+ ------+| GFR (mL/min/1.73 m2) ?| With Kidney Damage ?| ?Without Kidney Damage+ --------+ --------+ +| ?>90 ?| ?Stage one ?| ? Normal ?+ ---+ ---+ -------+| ?60-89 ?| ?Stage two ?| ? Decreased GFR ? + --+ --+ ------+| ?30-59 ?| ?Stage three ?| ? Stage three ? + --+ --+ ------+| ?15-29 ?| ?Stage four ? | ? Stage four ?+ ---+ ---+ -------+| ?<15 (or dialysis) ? ?| ?Stage five ? | ? Stage five ?+ ---+ ---+ -------+ *Each stage assumes the associated GFR level has been in effect for at least three months. ?Stages 1 to 5, with or without kidney disease, indicate chronic kidney disease. Notes: Determination of stages one and two (with eGFR >59mL/min/1.73 m2) requires estimation of kidney damage for at least three months as defined by structural or functional abnormalities of the kidney, manifested by either:Pathological abnormalities or Markers of kidney damage (including abnormalities in the composition of the blood or urine or abnormalities in imaging tests). Lab Interpretation (test code = 70059-9) [facility] [id number] 20:02:38* Test Item Value Reference Range Interpretation Comme [facility] URIC ACID (test code = 6391121898) 9.2 mg/dL 3.6-8 H Lab Interpretation (test cod e = 91498-5) [facility]normal [facility] IrvingTransthor[facility] (TTE)2022-04-06 18:12:47* Test Item Value Reference Range Interpretation Comme nts Height (test code = 3489867548) in Weight (test code = 2270056303) lbs Systolic BP (test code = 6740112090) mmHg Diastolic BP (test code = 2969802566) mmHg Heart Rate (test code = 7054287521) bpm LV GLS Endo Peak A2C () (test code = 8055621672) -19.90 % LV GLS Endo Peak A3C () (test code = 6993771487) -21.80 % LV GLS Endo Peak A4C () (test code = 2086066865) -19.20 % LV GLS Endo Peak Avg () (test code = 9975938977) -20.30 % BSA (test code = 9785585473) 2.11 m2 AV regurgitation pressure 1/2 time (test code = 8003990734) 364.2 ms AI dec slope (test code = 9746106944) 276.80 cm/s2 AI max lyle (test code = 1940004288) 344.20 cm/s AI max PG (test code = 2893088498) 47.40 mm[Hg] LVIDD (test code = 0934844068) 5.60 cm Left Ventricular End Diastolic Volume by Teichholz Method (test code = 3086540) 156.6 mL IVS (test code = 6661314797) 0.95 cm Interventricular Septum Diastolic Thickness by 2D (test code = 6930755) 0.95 cm LVPWD (test code = 8523540321) 0.73 cm PW (test code = 8479385410) 0.73 cm 0.6-1.1 EF(Teich) (test code = 6739089617) 65.80 % LVIDS (test code = 8178491881) 3.60 cm Left Ventricular End Systolic Volume by Teichholz Method (test code = 0674364) 53.5 mL FS (test code = 7834758432) 37 % EF - 2D (test code = 94310857) 65.80 % LVOT diameter (test code = 2105876976) 2.19 cm LVOT area (test code = 8732631034) 3.80 cm2 Ao root diam (test code = 0973058266) 4.10 cm Aortic root (test code = 9552333127) 4.1 cm Ao root annulus (test code = 8070156066) 4.1 cm ACS (test code = 4662633373) 2.60 cm LA size (test code = 5504571790) 3.7 cm MV Peak E Lyle (test code = 8225372004) 88.3 cm/s MV Peak A Lyle (test code = 9913644077) 83.6 cm/s E/A ratio (test code = 3920861032) ratio E wave decelartion time (test code = 5338316775) 0.31 s MV Prop V (test code = 0464598255) 54.00 cm/s MV E/e' septal (test code = 1967884905) 8.7 cm/s LVOT stroke volume (test code = 1176850754) 135.00 cm3 LVOT peak lyle (test code = 7328525358) 176.0 cm/s LVOT mn grad (test code = 7844175099) mmHg AV LVOT peak gradient (test code = 5528363873) mmHg LVOT peak VTI (test code = 4548792665) 35.7 cm LV V1 mean (test code = 3338673792) 111.80 cm/s Left Ventricular Cardiac Output (test code = 7007535) 9.7 L/min Aortic HR (test code = 6170376703) BPM Ao peak lyle (test code = 0548386116) 197.1 cm/s AV area peak lyle (test code = 7203631725) 3.4 cm2 Ao max PG (test code = 5047587503) 15.50 mm[Hg] AV peak gradient (test code = 5477740298) mmHg Tapse (test code = 7635426440) 2.9 cm LAV(MOD-sp4) (test code = 6088235444) 93.20 mL LA Volume Index (BP) (test code = 2320464288) 49.0 mL/m2 LA volume (BP) (test code = 1489569977) 103.2 mL LAV(MOD-sp2) (test code = 5477169048) 87.00 mL IVC Diam Exp(MM) (test code = 0492707740) 2.25 cm IVC Diam Ins(MM) (test code = 5423454490) 0.90 cm TR Peak Lyle (test code = 6755055631) 243.9 cm/s Triscuspid Valve Regurgitation Peak Gradient (test code = 9931446827) mmHg Radiology Study observation (narrative) (test code = 63302-5) MONTSERRAT (test code = MONTSERRAT) ?Left?Ventricle: Normal systolic function with a visually estimated EF of 55 - 60%. Global longitudinal strain is normal with GLS -20.3%. Normal diastolic function. ?Right?Ventricle: Right ventricle is moderately dilated. Normal systolic function. ?Left?Atrium: Left atrium is severely dilated. Left atrium volume index is 49.0 mL/m2. ?RA pressure is 0-5 mmHg. ?Aorta: Mildly enlarged ascending aorta and aortic root (measuring 3.88 to 4.1 cm) Left VentricleLeft ventricle size is normal. Normal wall thickness. Normal wall motion. Normal systolic function with a visually estimated EF of 55 - 60%. Global longitudinal strain is normal with GLS -20.3%. Normal diastolic function.Right VentricleRight ventricle is moderately dilated. Normal systolic function.Left AtriumLeft atrium is severely dilated. Left atrium volume index is 49.0 mL/m2.Right AtriumRight atrium size is normal.IVC/SVCIVC diameter is less than or equal to 21 mm and decreases greater than 50% during inspiration; therefore the estimated right atrial pressure is normal (~0-5 mmHg).Mitral ValveMildly thickened leaflets. Trace transvalvular regurgitation.Tricuspi d ValveTricuspid valve structure is normal. Insufficient tricuspid regurgitation jet to estimate RVSP.Trace transvalvular regurgitation. RA pressure is 0-5 mmHg.Aortic ValveMildly calcified cusps. Trace transvalvular regurgitation. No hemodynamically significant .Pulmonic ValveNot well visualized. Trace transvalvular regurgitation.Ascendin g AortaMildly enlarged ascending aorta and aortic root (measuring 3.88 to 4.1 cm)PericardiumThe pericardium is normal. No pericardial effusion.Study DetailsStudy quality was good. A complete echocardiogram was performed using 2D, color flow Doppler, spectral Doppler and strain. [facility] 18:12:47* Test Item Value Reference Range Interpretation Comme nts Height (test code = 3133126593) in Weight (test code = 8872858532) lbs Systolic BP (test code = 1902047843) mmHg Diastolic BP (test code = 7601821525) mmHg Heart Rate (test code = 0314620796) bpm LV GLS Endo Peak A2C () (test code = 4400893390) -19.90 % LV GLS Endo Peak A3C () (test code = 1595555029) -21.80 % LV GLS Endo Peak A4C () (test code = 0314973594) -19.20 % LV GLS Endo Peak Avg () (test code = 0048871209) -20.30 % BSA (test code = 1621002089) 2.11 m2 AV regurgitation pressure 1/2 time (test code = 1892323577) 364.2 ms AI dec slope (test code = 7046607942) 276.80 cm/s2 AI max lyle (test code = 5358521983) 344.20 cm/s AI max PG (test code = 5637102865) 47.40 mm[Hg] LVIDD (test code = 8927280036) 5.60 cm Left Ventricular End Diastolic Volume by Teichholz Method (test code = 1326855) 156.6 mL IVS (test code = 2047715394) 0.95 cm Interventricular Septum Diastolic Thickness by 2D (test code = 1112597) 0.95 cm LVPWD (test code = 2174424052) 0.73 cm PW (test code = 3202403141) 0.73 cm 0.6-1.1 EF(Teich) (test code = 1074253550) 65.80 % LVIDS (test code = 9438655243) 3.60 cm Left Ventricular End Systolic Volume by Teichholz Method (test code = 3259938) 53.5 mL FS (test code = 6858834810) 37 % EF - 2D (test code = 97592379) 65.80 % LVOT diameter (test code = 3189354227) 2.19 cm LVOT area (test code = 6244383299) 3.80 cm2 Ao root diam (test code = 4403658697) 4.10 cm Aortic root (test code = 0652478244) 4.1 cm Ao root annulus (test code = 9560617653) 4.1 cm ACS (test code = 8694063638) 2.60 cm LA size (test code = 9833494662) 3.7 cm MV Peak E Lyle (test code = 0223874292) 88.3 cm/s MV Peak A Lyle (test code = 3913877920) 83.6 cm/s E/A ratio (test code = 1104758170) ratio E wave decelartion time (test code = 5986462021) 0.31 s MV Prop V (test code = 2843616145) 54.00 cm/s MV E/e' septal (test code = 8531172508) 8.7 cm/s LVOT stroke volume (test code = 4688380894) 135.00 cm3 LVOT peak lyle (test code = 2147829440) 176.0 cm/s LVOT mn grad (test code = 6646334058) mmHg AV LVOT peak gradient (test code = 2514694370) mmHg LVOT peak VTI (test code = 3841336448) 35.7 cm LV V1 mean (test code = 4304033303) 111.80 cm/s Left Ventricular Cardiac Output (test code = 5911333) 9.7 L/min Aortic HR (test code = 4062023720) BPM Ao peak lyle (test code = 0509100924) 197.1 cm/s AV area peak lyle (test code = 9870504598) 3.4 cm2 Ao max PG (test code = 6694949754) 15.50 mm[Hg] AV peak gradient (test code = 0836175327) mmHg Tapse (test code = 1370797972) 2.9 cm LAV(MOD-sp4) (test code = 5212850214) 93.20 mL LA Volume Index (BP) (test code = 4555483073) 49.0 mL/m2 LA volume (BP) (test code = 4923929230) 103.2 mL LAV(MOD-sp2) (test code = 7712183115) 87.00 mL IVC Diam Exp(MM) (test code = 7484262356) 2.25 cm IVC Diam Ins(MM) (test code = 1248252799) 0.90 cm TR Peak Lyle (test code = 5232312357) 243.9 cm/s Triscuspid Valve Regurgitation Peak Gradient (test code = 1850750034) mmHg Radiology Study observation (narrative) (test code = 14343-5) MONTSERRAT (test code = MONTSERRAT) ?Left?Ventricle: Normal systolic function with a visually estimated EF of 55 - 60%. Global longitudinal strain is normal with GLS -20.3%. Normal diastolic function. ?Right?Ventricle: Right ventricle is moderately dilated. Normal systolic function. ?Left?Atrium: Left atrium is severely dilated. Left atrium volume index is 49.0 mL/m2. ?RA pressure is 0-5 mmHg. ?Aorta: Mildly enlarged ascending aorta and aortic root (measuring 3.88 to 4.1 cm) Left VentricleLeft ventricle size is normal. Normal wall thickness. Normal wall motion. Normal systolic function with a visually estimated EF of 55 - 60%. Global longitudinal strain is normal with GLS -20.3%. Normal diastolic function.Right VentricleRight ventricle is moderately dilated. Normal systolic function.Left AtriumLeft atrium is severely dilated. Left atrium volume index is 49.0 mL/m2.Right AtriumRight atrium size is normal.IVC/SVCIVC diameter is less than or equal to 21 mm and decreases greater than 50% during inspiration; therefore the estimated right atrial pressure is normal (~0-5 mmHg).Mitral ValveMildly thickened leaflets. Trace transvalvular regurgitation.Tricuspi d ValveTricuspid valve structure is normal. Insufficient tricuspid regurgitation jet to estimate RVSP.Trace transvalvular regurgitation. RA pressure is 0-5 mmHg.Aortic ValveMildly calcified cusps. Trace transvalvular regurgitation. No hemodynamically significant .Pulmonic ValveNot well visualized. Trace transvalvular regurgitation.Ascendin g AortaMildly enlarged ascending aorta and aortic root (measuring 3.88 to 4.1 cm)PericardiumThe pericardium is normal. No pericardial effusion.Study DetailsStudy quality was good. A complete echocardiogram was performed using 2D, color flow Doppler, spectral Doppler and strain. [facility] [id number] 18:09:40* Test Item Value Reference Range Interpretation [facility] G6PD SCREEN (test code = 2965566456) Normal Normal MONTSERRAT (test code = MONTSERRAT) Normal G6PD activity. ?No evidence of G6PD deficiency. Lab Interpretation (test code = 90630-9) Normal [facility] [id number] 18:09:40* Test Item Value Reference Range Interpretation [facility] G6PD SCREEN (test code = 2839702598) Normal Normal MONTSERRAT (test code = MONTSERRAT) Normal G6PD activity. ?No evidence of G6PD deficiency. Lab Interpretation (test code = 17400-5) Normal [facility] [id number] 18:09:40* Test Item Value Reference Range Interpretation [facility] G6PD SCREEN (test code = 0327633591) Normal Normal MNOTSERRAT (test code = MONTSERRAT) Normal G6PD activity. ?No evidence of G6PD deficiency. Lab Interpretation (test code = 03680-1) Normal [facility] [id number] 18:09:40* Test Item Value Reference Range Interpretation Comme [facility] G6PD SCREEN (test code = 7080409582) Normal Normal MONTSERRAT (test code = MONTSERRAT) Normal G6PD activity. ?No evidence of G6PD deficiency. Lab Interpretation (test code = 65071-4) Normal [facility] IrvingLACT[facility] [id number] 12:12:35* Test Item Value Reference Range Interpretation Comme [facility] LDH (test code = 2423021667) 1143 U/L 120-246 H Lab Interpretation (test cod e = 61563-1) Abnormal [facility] IrvingLACTATE [id number] 12:12:35* Test Item Value Reference Range Interpretation Comme [facility] LDH (test code = 1624180451) 1143 U/L 120-246 H Lab Interpretation (test cod e = 64376-9) Abnormal [facility] Metabolic Panel (NA, K, CL, CO2, GLUCOSE, BUN, CREATININE, CA)2022-04-06 12:03:27* Test Item Value Reference Range Interpretation Comme [facility] NA (test code = 8320206736) 139 mmol/L 135-145 K (test code = 8685350322) 3.5 mmol/L 3.5-5 CL (test code = 4886062467) 103 mmol/L 98-108 CO2 TOTAL (test code = 2473255911) 25 mmol/L 23-31 AGAP (test code = 9647827459) 2-16 BUN (test code = 6640826070) 25 mg/dL 7-23 H GLUCOSE (test code = 7027224932) 100 mg/dL 70-110 CREATININE (test code = 2917373432) 1.19 mg/dL 0.6-1.25 CALCIUM (test code = 2615709334) 11.4 mg/dL 8.6-10.6 H eGFR (test code = 7999116846) mL/min/1.73m2 MONTSERRAT (test code = MONTSERRAT) Association of Glomerular Filtration Rate (GFR) and Staging of Kidney Disease* + --+ --+ ------+| GFR (mL/min/1.73 m2) ?| With Kidney Damage ?| ?Without Kidney Damage+ --------+ --------+ +| ?>90 ?| ?Stage one ?| ? Normal ?+ ---+ ---+ -------+| ?60-89 ?| ?Stage two ?| ? Decreased GFR ? + --+ --+ ------+| ?30-59 ?| ?Stage three ?| ? Stage three ? + --+ --+ ------+| ?15-29 ?| ?Stage four ? | ? Stage four ?+ ---+ ---+ -------+| ?<15 (or dialysis) ? ?| ?Stage five ? | ? Stage five ?+ ---+ ---+ -------+ *Each stage assumes the associated GFR level has been in effect for at least three months. ?Stages 1 to 5, with or without kidney disease, indicate chronic kidney disease. Notes: Determination of stages one and two (with eGFR >59mL/min/1.73 m2) requires estimation of kidney damage for at least three months as defined by structural or functional abnormalities of the kidney, manifested by either:Pathological abnormalities or Markers of kidney damage (including abnormalities in the composition of the blood or urine or abnormalities in imaging tests). Lab Interpretation (test code = 43680-0) [facility] (NA, K, CL, CO2, GLUCOSE, BUN, CREATININE, CA)2022-04-06 12:03:27* Test Item Value Reference Range Interpretation Comme nts NA (test code = 8383210307) 139 mmol/L 135-145 K (test code = 7226877208) 3.5 mmol/L 3.5-5 CL (test code = 6487829840) 103 mmol/L 98-108 CO2 TOTAL (test code = 3630139975) 25 mmol/L 23-31 AGAP (test code = 6052282923) 2-16 BUN (test code = 6378293878) 25 mg/dL 7-23 H GLUCOSE (test code = 5208733301) 100 mg/dL 70-110 CREATININE (test code = 9528972712) 1.19 mg/dL 0.6-1.25 CALCIUM (test code = 7879943323) 11.4 mg/dL 8.6-10.6 H eGFR (test code = 1213438942) mL/min/1.73m2 MONTSERRAT (test code = MONTSERRAT) Association of Glomerular Filtration Rate (GFR) and Staging of Kidney Disease* + --+ --+ ------+| GFR (mL/min/1.73 m2) ?| With Kidney Damage ?| ?Without Kidney Damage+ --------+ --------+ +| ?>90 ?| ?Stage one ?| ? Normal ?+ ---+ ---+ -------+| ?60-89 ?| ?Stage two ?| ? Decreased GFR ? + --+ --+ ------+| ?30-59 ?| ?Stage three ?| ? Stage three ? + --+ --+ ------+| ?15-29 ?| ?Stage four ? | ? Stage four ?+ ---+ ---+ -------+| ?<15 (or dialysis) ? ?| ?Stage five ? | ? Stage five ?+ ---+ ---+ -------+ *Each stage assumes the associated GFR level has been in effect for at least three months. ?Stages 1 to 5, with or without kidney disease, indicate chronic kidney disease. Notes: Determination of stages one and two (with eGFR >59mL/min/1.73 m2) requires estimation of kidney damage for at least three months as defined by structural or functional abnormalities of the kidney, manifested by either:Pathological abnormalities or Markers of kidney damage (including abnormalities in the composition of the blood or urine or abnormalities in imaging tests). Lab Interpretation (test code = 38700-8) Abnormal [facility] IrvingMagnesium [id number] 11:45:13* Test Item Value Reference Range Interpretation Comme nts MAGNESIUM (test code = 5072755759) 1.6 mg/dL 1.7-2.4 L Lab Interpretation (test cod e = 49005-9) Abnormal [facility] IrvingUR[facility] [id number] 11:45:13* Test Item Value Reference Range Interpretation Comme nts URIC ACID (test code = 8907542729) 10.0 mg/dL 3.6-8 H Lab Interpretation (test cod e = 38569-5) Abnormal [facility] Irving[facility]AT[facility] FUN[facility] PAN[facility] (58801) (ALB,T.PRO,BILI T,BU/BC,ALT,AST,ALK PHOS)2022-04-06 11:45:13* Test Item Value Reference Range Interpretation Comme nts TOTAL BILI (test code = 7079846781) 1.5 mg/dL 0.1-1.1 H BILI UNCON (test code = 3375201433) 1.2 mg/dL 0.1-1.1 H BILI CONJ (test code = 2853367135) 0.0 mg/dL 0-0.3 T PROTEIN (test code = 2203597635) 8.2 g/dL 6.3-8.2 ALBUMIN (test code = 1091524241) 3.9 g/dL 3.5-5 ALK PHOS (test code = 5152016687) 110 U/L 34-122 ALTv (test code = 1742-6) 109 U/L 5-50 H AST(SGOT) (test code = 5204022357) 136 U/L 13-40 H Lab Interpretation (test cod e = 41361-8) Abnormal [facility] Irving[facility] [id number] 11:45:13* Test Item Value Reference Range Interpretation Comme nts MAGNESIUM (test code = 8447655513) 1.6 mg/dL 1.7-2.4 L Lab Interpretation (test cod e = 22218-7) Abnormal [facility] [id number] 11:45:13* Test Item Value Reference Range Interpretation Comme nts URIC ACID (test code = 3832552917) 10.0 mg/dL 3.6-8 H Lab Interpretation (test cod e = 19554-2) Abnormal [facility] (29423) (ALB,T.PRO,BILI T,BU/BC,ALT,AST,ALK PHOS)2022-04-06 11:45:13* Test Item Value Reference Range Interpretation Comme nts TOTAL BILI (test code = 7103068617) 1.5 mg/dL 0.1-1.1 H BILI UNCON (test code = 5107791556) 1.2 mg/dL 0.1-1.1 H BILI CONJ (test code = 0937415340) 0.0 mg/dL 0-0.3 T PROTEIN (test code = 1190917121) 8.2 g/dL 6.3-8.2 ALBUMIN (test code = 4730096588) 3.9 g/dL 3.5-5 ALK PHOS (test code = 1490901987) 110 U/L 34-122 ALTv (test code = 1742-6) 109 U/L 5-50 H AST(SGOT) (test code = 5864398662) 136 U/L 13-40 H Lab Interpretation (test cod e = 80732-5) Abnormal [facility] [id number] 11:28:24* Test Item Value Reference Range Interpretation Comme nts IONIZED CA (test code = 6176016363) 6.00 mg/dL 4.5-5.3 H PH SERUM (test code = 2760163160) 7.35-7.45 H QUES Lab Interpretation (test cod e = 06223-6) Abnormal [facility] [id number] 11:28:24* Test Item Value Reference Range Interpretation Comme nts IONIZED CA (test code = 7106561502) 6.00 mg/dL 4.5-5.3 H PH SERUM (test code = 5231578659) 7.35-7.45 H QUES Lab Interpretation (test cod e = 42681-6) Abnormal [facility] with [id number] 11:22:46* Test Item Value Reference Range Interpretation Comme nts WBC (test code = 6690-2) See_Comment [Automated messa ge] The system which generated this result transmitted reference range: 4.20 - 10.70 10*3/?L. The reference range was not used to interpret this result as normal/abnormal. RBC (test code = 789-8) See_Comment L [Automated messa ge] The system which generated this result transmitted reference range: 4.26 - 5.52 10*6/?L. The reference range was not used to interpret this result as normal/abnormal. HGB (test code = 718-7) 9.2 g/dL 12.2-16.4 L HCT (test code = 4544-3) 27.8 % 38.4-49.3 L MCV (test code = 787-2) 90.3 fL 81.7-95.6 MCH (test code = 785-6) 29.9 pg 26.1-32.7 MCHC (test code = 786-4) 33.1 g/dL 31.2-35 RDW-SD (test code = 23502-7) 53.4 fL 38.5-51.6 H RDW-CV (test code = 788-0) 16.0 % 12.1-15.4 H PLT (test code = 777-3) See_Comment L [Automated messa ge] The system which generated this result transmitted reference range: 150 - 328 10*3/?L. The reference range was not used to interpret this result as normal/abnormal. MPV (test code = 10676-7) 10.8 fL 9.8-13 NRBC/100 WBC (test code = 6477475458) See_Comment [Automated ASP64 ssage] The system which generated this result transmitted reference range: 0.0 - 10.0 /100 WBCs. The reference range was not used to interpret this result as normal/abnormal. NRBC x10^3 (test code = 1948995443) See_Comment [Automated messa ge] The system which generated this result transmitted reference range: 10*3/?L. The reference range was not used to interpret this result as normal/abnormal. GRAN MAT (NEUT) % (test code = 770-8) 61.8 % IMM GRAN % (test code = 6721599339) 0.50 % LYMPH % (test code = 736-9) 20.9 % MONO % (test code = 5905-5) 13.6 % EOS % (test code = 713-8) 2.3 % BASO % (test code = 706-2) 0.9 % GRAN MAT x10^3(ANC) (test code = 6486886603) 2.63 10*3/uL 1.99-6.95 IMM GRAN x10^3 (test code = 1796980534) 0-0.06 LYMPH x10^3 (test code = 731-0) 0.89 10*3/uL 1.09-3.23 L MONO x10^3 (test code = 742-7) 0.58 10*3/uL 0.36-1.02 EOS x10^3 (test code = 711-2) 0.10 10*3/uL 0.06-0.53 BASO x10^3 (test code = 704-7) 0.04 10*3/uL 0.01-0.09 Lab Interpretation (test code = 40187-1) Abnormal [facility] with [id number] 11:22:46* Test Item Value Reference Range Interpretation Comme nts WBC (test code = 6690-2) See_Comment [Automated messa ge] The system which generated this result transmitted reference range: 4.20 - 10.70 10*3/?L. The reference range was not used to interpret this result as normal/abnormal. RBC (test code = 789-8) See_Comment L [Automated messa ge] The system which generated this result transmitted reference range: 4.26 - 5.52 10*6/?L. The reference range was not used to interpret this result as normal/abnormal. HGB (test code = 718-7) 9.2 g/dL 12.2-16.4 L HCT (test code = 4544-3) 27.8 % 38.4-49.3 L MCV (test code = 787-2) 90.3 fL 81.7-95.6 MCH (test code = 785-6) 29.9 pg 26.1-32.7 MCHC (test code = 786-4) 33.1 g/dL 31.2-35 RDW-SD (test code = 64033-2) 53.4 fL 38.5-51.6 H RDW-CV (test code = 788-0) 16.0 % 12.1-15.4 H PLT (test code = 777-3) See_Comment L [Automated messa ge] The system which generated this result transmitted reference range: 150 - 328 10*3/?L. The reference range was not used to interpret this result as normal/abnormal. MPV (test code = 08331-1) 10.8 fL 9.8-13 NRBC/100 WBC (test code = 4482831224) See_Comment [Automated me ssage] The system which generated this result transmitted reference range: 0.0 - 10.0 /100 WBCs. The reference range was not used to interpret this result as normal/abnormal. NRBC x10^3 (test code = 4232660116) See_Comment [Automated messa ge] The system which generated this result transmitted reference range: 10*3/?L. The reference range was not used to interpret this result as normal/abnormal. GRAN MAT (NEUT) % (test code = 770-8) 61.8 % IMM GRAN % (test code = 6836642320) 0.50 % LYMPH % (test code = 736-9) 20.9 % MONO % (test code = 5905-5) 13.6 % EOS % (test code = 713-8) 2.3 % BASO % (test code = 706-2) 0.9 % GRAN MAT x10^3(ANC) (test code = 1730942037) 2.63 10*3/uL 1.99-6.95 IMM GRAN x10^3 (test code = 8398506074) 0-0.06 LYMPH x10^3 (test code = 731-0) 0.89 10*3/uL 1.09-3.23 L MONO x10^3 (test code = 742-7) 0.58 10*3/uL 0.36-1.02 EOS x10^3 (test code = 711-2) 0.10 10*3/uL 0.06-0.53 BASO x10^3 (test code = 704-7) 0.04 10*3/uL 0.01-0.09 Lab Interpretation (test code = 24054-8) Abnormal [facility] METABOLIC PANEL (NA, K, CL, CO2, GLUCOSE, BUN, CREATININE, CA)2022-04-06 05:31:45* Test Item Value Reference Range Interpretation Comme nts NA (test code = 3603739706) 141 mmol/L 135-145 K (test code = 6670325202) 3.8 mmol/L 3.5-5 CL (test code = 1339496209) 105 mmol/L 98-108 CO2 TOTAL (test code = 4412409339) 28 mmol/L 23-31 AGAP (test code = 1008089521) 2-16 BUN (test code = 5772495516) 27 mg/dL 7-23 H GLUCOSE (test code = 4966536872) 105 mg/dL 70-110 CREATININE (test code = 6950552935) 1.34 mg/dL 0.6-1.25 H CALCIUM (test code = 5370315228) 12.1 mg/dL 8.6-10.6 H eGFR (test code = 7512259619) mL/min/1.73m2 MONTSERRAT (test code = MONTSERRAT) Association of Glomerular Filtration Rate (GFR) and Staging of Kidney Disease* + --+ --+ ------+| GFR (mL/min/1.73 m2) ?| With Kidney Damage ?| ?Without Kidney Damage+ --------+ --------+ +| ?>90 ?| ?Stage one ?| ? Normal ?+ ---+ ---+ -------+| ?60-89 ?| ?Stage two ?| ? Decreased GFR ? + --+ --+ ------+| ?30-59 ?| ?Stage three ?| ? Stage three ? + --+ --+ ------+| ?15-29 ?| ?Stage four ? | ? Stage four ?+ ---+ ---+ -------+| ?<15 (or dialysis) ? ?| ?Stage five ? | ? Stage five ?+ ---+ ---+ -------+ *Each stage assumes the associated GFR level has been in effect for at least three months. ?Stages 1 to 5, with or without kidney disease, indicate chronic kidney disease. Notes: Determination of stages one and two (with eGFR >59mL/min/1.73 m2) requires estimation of kidney damage for at least three months as defined by structural or functional abnormalities of the kidney, manifested by either:Pathological abnormalities or Markers of kidney damage (including abnormalities in the composition of the blood or urine or abnormalities in imaging tests). Lab Interpretation (test code = 74094-0) Abnormal [facility] METABOLIC PANEL (NA, K, CL, CO2, GLUCOSE, BUN, CREATININE, CA)2022-04-06 05:31:45* Test Item Value Reference Range Interpretation Comme nts NA (test code = 3999272938) 141 mmol/L 135-145 K (test code = 7375172233) 3.8 mmol/L 3.5-5 CL (test code = 6843334278) 105 mmol/L 98-108 CO2 TOTAL (test code = 1186953876) 28 mmol/L 23-31 AGAP (test code = 0007699490) 2-16 BUN (test code = 5750112216) 27 mg/dL 7-23 H GLUCOSE (test code = 4074976157) 105 mg/dL 70-110 CREATININE (test code = 3939694496) 1.34 mg/dL 0.6-1.25 H CALCIUM (test code = 7149863982) 12.1 mg/dL 8.6-10.6 H eGFR (test code = 0680032690) mL/min/1.73m2 MONTSERRAT (test code = MONTSERRAT) Association of Glomerular Filtration Rate (GFR) and Staging of Kidney Disease* + --+ --+ ------+| GFR (mL/min/1.73 m2) ?| With Kidney Damage ?| ?Without Kidney Damage+ --------+ --------+ +| ?>90 ?| ?Stage one ?| ? Normal ?+ ---+ ---+ -------+| ?60-89 ?| ?Stage two ?| ? Decreased GFR ? + --+ --+ ------+| ?30-59 ?| ?Stage three ?| ? Stage three ? + --+ --+ ------+| ?15-29 ?| ?Stage four ? | ? Stage four ?+ ---+ ---+ -------+| ?<15 (or dialysis) ? ?| ?Stage five ? | ? Stage five ?+ ---+ ---+ -------+ *Each stage assumes the associated GFR level has been in effect for at least three months. ?Stages 1 to 5, with or without kidney disease, indicate chronic kidney disease. Notes: Determination of stages one and two (with eGFR >59mL/min/1.73 m2) requires estimation of kidney damage for at least three months as defined by structural or functional abnormalities of the kidney, manifested by either:Pathological abnormalities or Markers of kidney damage (including abnormalities in the composition of the blood or urine or abnormalities in imaging tests). Lab Interpretation (test code = 04488-5) [facility] [id number] 02:26:49* Test Item Value Reference Range Interpretation Comme nts AFP (test code = 6537347560) 2.0 ng/mL See_Comment [Automated message] The system which generated this result transmitted reference range: <=7.5. The reference range was not used to interpret this result as normal/abnormal. MONTSERRAT (test code = MONTSERRAT) Biotin has been reported to cause a negative bias, interpret results relative to patient's use of biotin. Lab Interpretation (test code = 49286-6) Normal [facility] [id number] 02:26:49* Test Item Value Reference Range Interpretation Comme nts AFP (test code = 7683958819) 2.0 ng/mL See_Comment [Automated message] The system which generated this result transmitted reference range: <=7.5. The reference range was not used to interpret this result as normal/abnormal. MONTSERRAT (test code = MONTSERRAT) Biotin has been reported to cause a negative bias, interpret results relative to patient's use of biotin. Lab Interpretation (test code = 94040-1) [facility] [id number] 02:26:49* Test Item Value Reference Range Interpretation Comme nts AFP (test code = 3119479602) 2.0 ng/mL See_Comment [Automated message] The system which generated this result transmitted reference range: <=7.5. The reference range was not used to interpret this result as normal/abnormal. MONTSERRAT (test code = MONTSERRAT) Biotin has been reported to cause a negative bias, interpret results relative to patient's use of biotin. Lab Interpretation (test code = 39719-8) [facility] [id number] 02:26:49* Test Item Value Reference Range Interpretation Comme nts AFP (test code = 3747288098) 2.0 ng/mL See_Comment [Automated message] The system which generated this result transmitted reference range: <=7.5. The reference range was not used to interpret this result as normal/abnormal. MONTSERRAT (test code = MONTSERRAT) Biotin has been reported to cause a negative bias, interpret results relative to patient's use of biotin. Lab Interpretation (test code = 36714-4) Normal [facility] IrvingPROT[facility]OM[facility] / [id number] 23:33:51* Test Item Value Reference Range Interpretation Comme nts PROTIME PATIENT (test code = 5964-2) See_Comment H [Automated DineGasma ge] The system which generated this result transmitted reference range: 10.1 - 12.6 Seconds. The reference range was not used to interpret this result as normal/abnormal. INR (test code = 6301-6) Normal INR <1.1; Warfarin Therapeutic range 2.0 to 3.0 or 2.5 to 3.5, depending upon the indications. Lab Interpretation (test code = 26970-6) [facility]normal [facility] IrvingPROTHROM[facility] / [id number] 23:33:51* Test Item Value Reference Range Interpretation Comme [facility] PROTIME PATIENT (test code = 5964-2) See_Comment H [Automated DineGasma EyeSpot] The system which generated this result transmitted reference range: 10.1 - 12.6 Seconds. The reference range was not used to interpret this result as normal/abnormal. INR (test code = 6301-6) Normal INR <1.1; Warfarin Therapeutic range 2.0 to 3.0 or 2.5 to 3.5, depending upon the indications. Lab Interpretation (test code = 14911-9) [facility]normal [facility] IrvingPROT[facility]OM[facility] / [id number] 23:33:51* Test Item Value Reference Range Interpretation Comme [facility] PROTIME PATIENT (test code = 5964-2) See_Comment H [Automated DineGasma EyeSpot] The system which generated this result transmitted reference range: 10.1 - 12.6 Seconds. The reference range was not used to interpret this result as normal/abnormal. INR (test code = 6301-6) Normal INR <1.1; Warfarin Therapeutic range 2.0 to 3.0 or 2.5 to 3.5, depending upon the indications. Lab Interpretation (test code = 38343-3) [facility]normal [facility]HIV [facility]/2 AG-AB WITH [id number] 21:42:09* Test Item Value Reference Range Interpretation Comme [facility] HIV Semi-quantitative (test code = 79945-1) Negative Negative MONTSERRAT (test code = MONTSERRAT) Non-reactive for HIV-1 antigen and HIV-1/HIV-2 antibodies. ?No laboratory evidence of HIV infection. ?Repeat in 2-4 weeks if acute HIV infection is suspected. [facility]-AB WITH [id number] 21:42:09* Test Item Value Reference Range Interpretation Comme [facility] HIV Semi-quantitative (test code = 07024-1) Negative Negative MONTSERRAT (test code = MONTSERRAT) Non-reactive for HIV-1 antigen and HIV-1/HIV-2 antibodies. ?No laboratory evidence of HIV infection. ?Repeat in 2-4 weeks if acute HIV infection is suspected. [facility] METABOLIC PANEL (NA, K, CL, CO2, GLUCOSE, BUN, CREATININE, CA)2022-04-05 20:39:30* Test Item Value Reference Range Interpretation Comme nts NA (test code = 1367689358) 142 mmol/L 135-145 K (test code = 4246915105) 4.6 mmol/L 3.5-5 CL (test code = 2364671615) 104 mmol/L 98-108 CO2 TOTAL (test code = 9252621932) 27 mmol/L 23-31 AGAP (test code = 4644582422) 2-16 BUN (test code = 5348843176) 28 mg/dL 7-23 H GLUCOSE (test code = 7730331645) 87 mg/dL 70-110 CREATININE (test code = 4850192535) 1.58 mg/dL 0.6-1.25 H CALCIUM (test code = 2130497690) 13.2 mg/dL 8.6-10.6 HH eGFR (test code = 7024670080) mL/min/1.73m2 MONTSERRAT (test code = MONTSERRAT) Association of Glomerular Filtration Rate (GFR) and Staging of Kidney Disease* + --+ --+ ------+| GFR (mL/min/1.73 m2) ?| With Kidney Damage ?| ?Without Kidney Damage+ --------+ --------+ +| ?>90 ?| ?Stage one ?| ? Normal ?+ ---+ ---+ -------+| ?60-89 ?| ?Stage two ?| ? Decreased GFR ? + --+ --+ ------+| ?30-59 ?| ?Stage three ?| ? Stage three ? + --+ --+ ------+| ?15-29 ?| ?Stage four ? | ? Stage four ?+ ---+ ---+ -------+| ?<15 (or dialysis) ? ?| ?Stage five ? | ? Stage five ?+ ---+ ---+ -------+ *Each stage assumes the associated GFR level has been in effect for at least three months. ?Stages 1 to 5, with or without kidney disease, indicate chronic kidney disease. Notes: Determination of stages one and two (with eGFR >59mL/min/1.73 m2) requires estimation of kidney damage for at least three months as defined by structural or functional abnormalities of the kidney, manifested by either:Pathological abnormalities or Markers of kidney damage (including abnormalities in the composition of the blood or urine or abnormalities in imaging tests). Lab Interpretation (test code = 09627-5) [facility]normal [facility] IrvingGAMMA [id number] 20:35:18* Test Item Value Reference Range Interpretation Comme nts GGT (test code = 9666386960) 120 U/L 13-58 H Lab Interpretation (test cod e = 10106-9) [facility]normal [facility] IrvingHEPATIC FUNCTION PANEL (52747) (ALB,T.PRO,BILI T,BU/BC,ALT,AST,ALK PHOS)2022-04-05 20:35:18* Test Item Value Reference Range Interpretation Comme nts TOTAL BILI (test code = 1038024599) 1.2 mg/dL 0.1-1.1 H BILI UNCON (test code = 6787550466) 0.9 mg/dL 0.1-1.1 BILI CONJ (test code = 1771501476) 0.0 mg/dL 0-0.3 T PROTEIN (test code = 2552659230) 9.2 g/dL 6.3-8.2 H ALBUMIN (test code = 9115769054) 4.5 g/dL 3.5-5 ALK PHOS (test code = 4668836680) 143 U/L 34-122 H ALTv (test code = 1742-6) 125 U/L 5-50 H AST(SGOT) (test code = 5461025819) 147 U/L 13-40 H Lab Interpretation (test cod e = 28625-4) [facility]normal [facility] IrvingURIC [id number] 20:35:18* Test Item Value Reference Range Interpretation Comme nts URIC ACID (test code = 2562879098) 10.4 mg/dL 3.6-8 H Lab Interpretation (test cod e = 95552-5) [facility]normal [facility] IrvingPHOSPHORUS2022-10-13 20:35:18* Test Item Value Reference Range Interpretation Comme nts PHOSPHORUS (test code = 8007804476) 3.1 mg/dL 2.5-5 Lab Interpretation (test cod e = 28337-4) Normal [facility] IrvingMAGNESIUM2022-10-13 20:35:18* Test Item Value Reference Range Interpretation Comme nts MAGNESIUM (test code = 3210934648) 1.9 mg/dL 1.7-2.4 Lab Interpretation (test cod e = 24442-2) Normal [facility] IrvingPHOSPHORUS2022-10-13 20:35:18* Test Item Value Reference Range Interpretation Comme nts PHOSPHORUS (test code = 2844563188) 3.1 mg/dL 2.5-5 Lab Interpretation (test cod e = 92338-0) Normal [facility] IrvingGAMMA [id number] 20:35:18* Test Item Value Reference Range Interpretation Comme nts GGT (test code = 1613273012) 120 U/L 13-58 H Lab Interpretation (test cod e = 92519-5) [facility]normal [facility] IrvingGAMMA [id number] 20:35:18* Test Item Value Reference Range Interpretation Comme nts GGT (test code = 6475392274) 120 U/L 13-58 H Lab Interpretation (test cod e = 17448-8) [facility]normal [facility] IrvingCBC WITH [id number] 20:20:54* Test Item Value Reference Range Interpretation Comme nts WBC (test code = 6690-2) See_Comment [Automated messa ge] The system which generated this result transmitted reference range: 4.20 - 10.70 10*3/?L. The reference range was not used to interpret this result as normal/abnormal. RBC (test code = 789-8) See_Comment L [Automated messa ge] The system which generated this result transmitted reference range: 4.26 - 5.52 10*6/?L. The reference range was not used to interpret this result as normal/abnormal. HGB (test code = 718-7) 10.8 g/dL 12.2-16.4 L HCT (test code = 4544-3) 33.2 % 38.4-49.3 L MCV (test code = 787-2) 92.2 fL 81.7-95.6 MCH (test code = 785-6) 30.0 pg 26.1-32.7 MCHC (test code = 786-4) 32.5 g/dL 31.2-35 RDW-SD (test code = 59133-9) 54.9 fL 38.5-51.6 H RDW-CV (test code = 788-0) 16.3 % 12.1-15.4 H PLT (test code = 777-3) See_Comment L [Automated messa ge] The system which generated this result transmitted reference range: 150 - 328 10*3/?L. The reference range was not used to interpret this result as normal/abnormal. MPV (test code = 55279-4) 11.1 fL 9.8-13 NRBC/100 WBC (test code = 5576460822) See_Comment [Automated me ssage] The system which generated this result transmitted reference range: 0.0 - 10.0 /100 WBCs. The reference range was not used to interpret this result as normal/abnormal. NRBC x10^3 (test code = 1061827283) See_Comment [Automated messa ge] The system which generated this result transmitted reference range: 10*3/?L. The reference range was not used to interpret this result as normal/abnormal. GRAN MAT (NEUT) % (test code = 770-8) 62.2 % IMM GRAN % (test code = 8905679023) 0.20 % LYMPH % (test code = 736-9) 21.0 % MONO % (test code = 5905-5) 12.2 % EOS % (test code = 713-8) 3.7 % BASO % (test code = 706-2) 0.7 % GRAN MAT x10^3(ANC) (test code = 7576537205) 3.40 10*3/uL 1.99-6.95 IMM GRAN x10^3 (test code = 2639771698) 0-0.06 LYMPH x10^3 (test code = 731-0) 1.15 10*3/uL 1.09-3.23 MONO x10^3 (test code = 742-7) 0.67 10*3/uL 0.36-1.02 EOS x10^3 (test code = 711-2) 0.20 10*3/uL 0.06-0.53 BASO x10^3 (test code = 704-7) 0.04 10*3/uL 0.01-0.09 Lab Interpretation (test code = 22640-9) Abnormal [facility]. [id number] 20:07:19* Test Item Value Reference Range Interpretation Comme nts Miscellaneous Test (test code = 3088745789) See scanned report Performing Lab (test code = 4283679693) Med fusion [facility]. [id number] 20:07:19* Test Item Value Reference Range Interpretation Comme nts Miscellaneous Test (test code = 4617120403) See scanned report Performing Lab (test code = 4600781740) [facility]I-NUCLEAR ANTIB[facility]-PATHOLOGIST [id number] 16:30:12ANA - Pathologist InterpretationANA HEp-2 IIFA Pathologist Interpretation Report Patient Name: Piyush Mena Sr. ? ? Antinuclear Antibody (NUHA) Test (Anti-Cell Antibodies Test) Indirect I mmunofluorescence Assay on HEp-2 Cells Screening titer: 1:80 (adults, > 18 years old), 1:40 (pediatrics, <= 18 years old) ? Result: The antinuclear antibody (NUHA) screen was positive at the screening dilution of 1:80, but with a low titer of <1:80 observed on subsequent testing. Generally,a titer greater than or equal to 1:160 is considered clinically significant. Remarks: This patient had a positive antinuclear antibody (NUHA) screening test at the initial 1:80 screening dilution but with a low titer of <1:80 observed on subsequent testing. Of note, a titer greater than or equal to 1:40 may occur in up to 20-30% of individuals without a systemic autoimmune rheumatic disease andis thus not considered to be clinically significant. In contrast, a titer greater than or equal to 1:160 is generally considered to be clinically significant, as only up to 5% of individuals in the general population will have a positive NUHA at this titer. ? ? Therefore, this low titer NUHA result does not necessarily indicate that the patient has a systemic autoimmune rheumatic disease. Furthermore, false positive NUHA results are associated with increasing age and female gender. Correlation of this NUHA result with the patient's history and other clinical findings is recommended to ascertain the likelihood of autoimmune disease. NUHA is not useful for the diagnosis of rheumatoid arthritis, multiple sclerosis, idiopathic thrombocytopenic purpura, thyroid disease, discoid lupus, or fibromyalgia. (https://pubmed.ncbi.nlm.nih.gov/41063051/) ? If the patient's clinical condition changes/progresses, repeating the NUHA screen at a future time may be informative due to the evolving nature of systemic rheumatic diseases. ? ? A diagnosis cannot be based exclusively on NUHA detection and/or pattern and thus should be made via the integration of patient history, physical exam findings, and other diagnostic tests as clinically indicated. Dasha Chu MD ?03/06/2022 ?11:30 AM 03/06/2022 11:30 AM [facility] IrvingANTI-NUCLEAR ANTIBODY-PATHOLOGIST [id number] 16:30:12ANA - Pathologist InterpretationANA HEp-2 IIFA Pathologist Interpretation Report Patient Name: Piyush Mena . ? ? Antinuclear Antibody (NUHA) Test (Anti-Cell Antibodies Test) Indirect Immunofluorescence Assay on HEp-2 Cells Screening titer: 1:80 (adults, > 18 years old), 1:40 (pediatrics, <= 18 years old) ? Result: The antinuclear antibody (NUHA) screen was positive at the scre ening dilution of 1:80, but with a low titer of <1:80 observed on subsequent testing. Generally,a titer greater than or equal to 1:160 is considered clinically significant. Remarks: This patient had a positive antinuclear antibody (NUHA) screening test at the initial 1:80 screening dilution but with a low titer of <1:80 observed on subsequent testing. Of note, a titer greater than or equal to 1:40 may occur in up to 20-30% of individuals without a systemic autoimmune rheumatic disease andis thus not considered to be clinically significant. In contrast, a titer greater than or equal to 1:160 is generally considered to be clinically significant, as only up to 5% of individuals in the general population will have a positive NUHA at this titer. ? ? Therefore, this low titer NUHA result does not necessarily indicate that the patient has a systemic autoimmune rheumatic disease. Furthermore, false positive NUHA results are associated with increasing age and female gender. Correlation of this NUHA result with the patient's history and other clinical findings is recommended to ascertain the likelihood of autoimmune disease. NUHA is not useful for the diagnosis of rheumatoid arthritis, multiple sclerosis, idiopathic thrombocytopenic purpura, thyroid disease, discoid lupus, or fibromyalgia. (https://pubmed.ncbi.nlm.nih.gov/16001638/) ? If the patient's clinical condition changes/progresses, repeating the NUHA screen at a future time may be informative due to the evolving nature of systemic rheumatic diseases. ? ? A diagnosis cannot be based exclusively on NUHA detection and/or pattern and thus should be made via the integration of patient history, physical exam findings, and other diagnostic tests as clinically indicated. Dasha Chu MD ?03/06/2022 ?11:30 AM 03/06/2022 11:30 AM [facility] LABORAT[facility] SERVICESUnCitizens Medical CenterANTI-NUCLEAR ANTIBODY [id number] 16:29:35* Test Item Value Reference Range Interpretation Comme nts NUHA Titer by IFA (test code = 3782784724) <=1:80 NUHA Pattern (test code = 4542075835) NUHA screen was positive at the 1:80 dilution but with low titer results observed during subsequent testing. MONTSERRAT (test code = MONTSERRAT) Anti-nuclear antib odies are seen in a variety of autoimmune diseases and may also be seen in low titers in otherwise normal individuals without evidence of autoimmune disease. In general, a titer greater than or equal to 1:160 is considered significant. For further information, contact the appropriate Specialist. For additional NUHA tests, refer to the Laboratory Test Directory. The specimen will be held for 7 days. [facility]I-NUCLE[facility] ANTIBODY [id number] 16:29:35 * Test Item Value Reference Range Interpretation Comme nts NUHA Titer by IFA (test code = 3831465736) <=1:80 NUHA Pattern (test code = 2437049581) NUHA screen was positive at the 1:80 dilution but with low titer results observed during subsequent testing. MONTSERRAT (test code = MONTSERRAT) Anti-nuclear antib odies are seen in a variety of autoimmune diseases and may also be seen in low titers in otherwise normal individuals without evidence of autoimmune disease. In general, a titer greater than or equal to 1:160 is considered significant. For further information, contact the appropriate Specialist. For additional NUHA tests, refer to the Laboratory Test Directory. The specimen will be held for 7 days. [facility] IrvingANTI-NEUTROPHIL [id number] 23:17:52* Test Item Value Reference Range Interpretation Comme nts ANTI-RICK Ab (test code = 28776-0) Negative Negative INTERPRETIVE INF ORMATION: Neutrophil Associated Antibodies Neutrophil-associated antibodies may cause neutropenia in various autoimmune disorders including Felty syndrome, SLE and drug-induced neutropenia. ?Febrile transfusion reactions and isoimmune neutropenia may also be caused by antibodies to neutrophil-specific antigens or HLA antigens. A positive result is not definitive for specific anti-neutrophil antibodies. Anti-HLA antibodies and immune complexes may also cause a positive result. The results of this test should be correlated to clinical history and other data. This test was developed and its performance characteristics determined by [facility]. It has not been cleared or approved by the [place] Food and Drug Administration. This test was performed in a CLIA certified laboratory and is intended for clinical purposes.Performed By: [facility] [place] [address] [id number] Director: Carmelo Muñoz MD, PhD [facility] IrvingANTI-NEUTROPHIL [id number] 23:17:52* Test Item Value Reference Range Interpretation Comme nts ANTI-RICK Ab (test code = 64840-1) Negative Negative INTERPRETIVE INF ORMATION: Neutrophil Associated Antibodies Neutrophil-associated antibodies may cause neutropenia in various autoimmune disorders including Felty syndrome, SLE and drug-induced neutropenia. ?Febrile transfusion reactions and isoimmune neutropenia may also be caused by antibodies to neutrophil-specific antigens or HLA antigens. A positive result is not definitive for specific anti-neutrophil antibodies. Anti-HLA antibodies and immune complexes may also cause a positive result. The results of this test should be correlated to clinical history and other data. This test was developed and its performance characteristics determined by [facility]. It has not been cleared or approved by the [place] Food and Drug Administration. This test was performed in a CLIA certified laboratory and is intended for clinical purposes.Performed By: [facility] [address] [place] [address] [id number] Director: Carmelo Muñoz MD, PhD [facility] [id number] 20:12:38* Test Item Value Reference Range Interpretation Comme nts ANTI-DSDNA (test code = 8782193267) See_Comment [Automated message] The system which generated this result transmitted reference range: 0.0 - 4.0 IU/mL. The reference range was not used to interpret this result as normal/abnormal. MONTSERRAT (test code = MONTSERRAT) Negative ? ?< or = 4 IU/mLPositive ? ? ?> or = 10 IU/mLIndetermin ate ?5-9 IU/mL Lab Interpretation (test code = 49405-5) Normal [facility] STRANDED [id number] 20:12:38* Test Item Value Reference Range Interpretation Comme nts ANTI-DSDNA (test code = 7806763743) See_Comment [Automated message] The system which generated this result transmitted reference range: 0.0 - 4.0 IU/mL. The reference range was not used to interpret this result as normal/abnormal. MONTSERRAT (test code = MONTSERRAT) Negative ? ?< or = 4 IU/mLPositive ? ? ?> or = 10 IU/mLIndetermin ate ?5-9 IU/mL Lab Interpretation (test code = 27817-4) Normal [facility]-NUCLE[facility] ANTIBODY [id number] 19:16:33* Test Item Value Reference Range Interpretation Comme nts NUHA (test code = 7536861097) Positive Negative A MONTSERRAT (test code = MONTSERRAT) Negative: ?No Anti-Nuclear Antibodies detected by IFA. Positive: ?NUHA IFA screen performed with a 1:80 dilution in adults and a 1:40 dilution in pediatrics. ?A titer is performed and reported separately when the NUHA is "Positive" or when "Cytoplasmic staining is observed." Lab Interpretation (test code = 12876-3) Abnormal [facility] [id number] 19:16:33* Test Item Value Reference Range Interpretation Comme nts NUHA (test code = 6267626677) Positive Negative A MONTSERRAT (test code = MONTSERRAT) Negative: ?No Anti-Nuclear Antibodies detected by IFA. Positive: ?NUHA IFA screen performed with a 1:80 dilution in adults and a 1:40 dilution in pediatrics. ?A titer is performed and reported separately when the NUHA is "Positive" or when "Cytoplasmic staining is observed." Lab Interpretation (test code = 55930-2) Abnormal [facility] [id number] 18:12:45* Test Item Value Reference Range Interpretation Comme nts Myeloperoxidase (MPO) Antibodies, IgG Interpretation (test code = 22780-7) Negative Negative Proteinase 3 (PR3) Antibodies, IgG Interpretation (test code = 35197-0) Negative Negative Myeloperoxidase (MPO) Antibodies, IgG (test code = 7973392865) See_Comment [Automated message] The system which generated this result transmitted reference range: <=3.5. The reference range was not used to interpret this result as normal/abnormal. Proteinase 3 (PR3) Antibodies, IgG (test code = 8298283253) See_Comment [Automated message] The system which generated this result transmitted reference range: <=2.0. The reference range was not used to interpret this result as normal/abnormal. MONTSERRAT (test code = MONTSERRAT) Test ?Unit ? Negative ? ? ? Equivocal ? Positive Brynn MPOs ? ? ? U/ml ? <3.5 ? 3.5-5.0 ? >5 Brynn PR3s ? ? ? U/ml ? <2.0 ? 2.0-3.0 ? >3.0 In case of equivocal results, we recommend to retest the patient after 8 - 12 weeks. Lab Interpretation (test code = 85814-7) Normal [facility] [id number] 18:12:45* Test Item Value Reference Range Interpretation Comme nts Myeloperoxidase (MPO) Antibodies, IgG Interpretation (test code = 09639-6) Negative Negative Proteinase 3 (PR3) Antibodies, IgG Interpretation (test code = 22996-2) Negative Negative Myeloperoxidase (MPO) Antibodies, IgG (test code = 9035582356) See_Comment [Automated message] The system which generated this result transmitted reference range: <=3.5. The reference range was not used to interpret this result as normal/abnormal. Proteinase 3 (PR3) Antibodies, IgG (test code = 8858142815) See_Comment [Automated message] The system which generated this result transmitted reference range: <=2.0. The reference range was not used to interpret this result as normal/abnormal. MONTSERRAT (test code = MONTSERRAT) Test ?Unit ? Negative ? ? ? Equivocal ? Positive Brynn MPOs ? ? ? U/ml ? <3.5 ? 3.5-5.0 ? >5 Brynn PR3s ? ? ? U/ml ? <2.0 ? 2.0-3.0 ? >3.0 In case of equivocal results, we recommend to retest the patient after 8 - 12 weeks. Lab Interpretation (test code = 04615-0) [facility] [id number] 22:02:22* Test Item Value Reference Range Interpretation Comme nts APTT Patient (test code = 3173-2) See_Comment [Automated message] The system which generated this result transmitted reference range: 23 - 38 Seconds. The reference range was not used to interpret this result as normal/abnormal. MONTSERRAT (test code = MONTSERRAT) [facility] mean normal value for aPTT is 30 seconds. Lab Interpretation (test code = 03646-2) [facility]A1C)2022-02-27 14:33:04* Test Item Value Reference Range Interpretation Comme [facility] HGB A1C (test code = 4548-4) 4.9 % 4-5.7 MONTSERRAT (test code = MONTSERRAT) Reference RangesNormal: <5.7%Prediabetes: 5.7 - 6.4%Diabetes: > 6.5% Lab Interpretation (test code = 67593-4) [facility]A1C)2022-02-27 14:33:04* Test Item Value Reference Range Interpretation Comme [facility] HGB A1C (test code = 4548-4) 4.9 % 4-5.7 MONTSERRAT (test code = MONTSERRAT) Reference RangesNormal: <5.7%Prediabetes: 5.7 - 6.4%Diabetes: > 6.5% Lab Interpretation (test code = 83738-5) [facility] [id number] 06:59:06* Test Item Value Reference Range Interpretation Comme nts GLUCOSE (test code = 2216) 99 MG/DL 70-99 BUN (test code = 2207) 36 MG/DL 6-20 H CREATININE (test code = 2213) 1.84 MG/DL 0.80-1.40 H eGFR (2020 CKD-EPI) (test code = 66441) 43 ML/MIN/1.73 >60 L CALC BUN/CREAT (test code = 2234) 20 RATIO 6-28 SODIUM (test code = 223) 141 MEQ/L 133-146 POTASSIUM (test code = 222) 4.0 MEQ/L 3.5-5.4 CHLORIDE (test code = 2214) 103 MEQ/L 95-107 CARBON DIOXIDE (test code = 2205) 25 MEQ/L 19-31 CALCIUM (test code = 2208) 14.7 MG/DL 8.5-10.5 HH RESULTS RECHECKE D AND VERIFIED PROTEIN, TOTAL (test code = 2228) 8.4 G/DL 6.1-8.3 H ALBUMIN (test code = 1) 4.2 G/DL 3.5-5.2 CALC GLOBULIN (test code = 2240) 4.2 G/DL 1.9-3.7 H CALC A/G RATIO (test code = 2234) 1.0 RATIO 1.0-2.6 BILIRUBIN, TOTAL (test code = 2206) 0.8 MG/DL See_Comment [Automated me ssage] The system which generated this result transmitted reference range: <=1.2. The reference range was not used to interpret this result as normal/abnormal. ALKALINE PHOSPHATASE (test code = 4) 136 U/L 40-121 H AST (test code = 2218) 131 U/L 9-50 H ALT (test code = 2219) 134 U/L 5-50 H LIPID [id number] 06:59:06* Test Item Value Reference Range Interpretation Comme nts CHOLESTEROL (test code = 2210) 114 MG/DL <200 TRIGLYCERIDES (test code = 2232) 104 MG/DL <150 HDL CHOLESTEROL (test code = 2220) 29 MG/DL >39 L CALC LDL CHOL (test code = 2237) 66 MG/DL <100 NOTE: CALCULATED LDL IS BASED ON DOUGIE-BEEBE METHOD WHICHINCLUDES ADJUSTABLE TRIGLYCERIDE:VLDL CHOLESTEROL RATIO.THIS FACTOR VARIES BY MEASURED TRIGLYCERIDE AND NON-HDLCHOLESTEROL CONCENTRATIONS WITH INCREASED CALCULATED LDL SEENIN HIGHER TRIGLYCERIDE OR LOWER NON-HDL SPECIMENS. FOR MOREINFORMATION, SEE CLIENT ANNOUNCEMENT AT [email or web address] RISK RATIO LDL/HDL (test code = 2237) 2.28 RATIO <3.55 UNLESS OTHERW ISE INDICATED, ALL TESTING PERFORMED [facility] [employer] [address] [place] [address] ELECTROMEDICAL SERVICE ENGINEER: ANANYA ROBERSON M.D. CLIA NUMBER [id number] [facility] [place] [place]. [id number] COMPREHENSIVE METABOLIC [id number] 11:24:54* Test Item Value Reference Range Interpretation Comme nts GLUCOSE (test code = 2216) TEST NOT PERFORMED MG/DL 70-99 ELEVATED CALCIUM AND OTHER ANALYTES IDENTIFIED IN UNDERFILLED SERUM SEPARATOR TUBE. RECOMMEND URGENT RECOLLECTION TO DETERMINE ACCURATE RESULTS. BUN (test code = 2207) TEST NOT PERFORMED MG/DL 6-20 CREATININE (test code = 2213) TEST NOT PERFORMED MG/DL 0.80-1.40 eGFR (2020 CKD-EPI) (test code = 74866) TEST NOT PERFORMED ML/MIN/1.73 >60 CALC BUN/CREAT (test code = 5) TEST NOT PERFORMED RATIO 6-28 SODIUM (test code = 2230) TEST NOT PERFORMED MEQ/L 133-146 POTASSIUM (test code = 8) TEST NOT PERFORMED MEQ/L 3.5-5.4 CHLORIDE (test code = 2215) TEST NOT PERFORMED MEQ/L 95-107 CARBON DIOXIDE (test code = 2206) TEST NOT PERFORMED MEQ/L 19-31 CALCIUM (test code = 9) TEST NOT PERFORMED MG/DL 8.5-10.5 PROTEIN, TOTAL (test code = 2228) TEST NOT PERFORMED G/DL 6.1-8.3 ALBUMIN (test code = 2200) TEST NOT PERFORMED G/DL 3.5-5.2 CALC GLOBULIN (test code = 0) TEST NOT PERFORMED G/DL 1.9-3.7 CALC A/G RATIO (test code = 2234) TEST NOT PERFORMED RATIO 1.0-2.6 BILIRUBIN, TOTAL (test code = 2207) TEST NOT PERFORMED MG/DL See_Comment [Automated message] The system which generated this result transmitted reference range: <=1.2. The reference range was not used to interpret this result as normal/abnormal. ALKALINE PHOSPHATASE (test code = 2204) TEST NOT PERFORMED U/L 40-121 AST (test code = 2218) TEST NOT PERFORMED U/L 9-50 ALT (test code = 2219) TEST NOT PERFORMED U/L 5-50 LIPID [id number] 11:24:54* Test Item Value Reference Range Interpretation Comme nts CHOLESTEROL (test code = 2210) TEST NOT PERFORMED MG/DL <200 ELEVATED CALCIUM AND OTHER ANALYTES IDENTIFIED IN UNDERFILLED SERUM SEPARATOR TUBE. RECOMMEND URGENT RECOLLECTION TO DETERMINE ACCURATE RESULTS. TRIGLYCERIDES (test code = 2232) TEST NOT PERFORMED MG/DL <150 HDL CHOLESTEROL (test code = 2220) TEST NOT PERFORMED MG/DL >39 CALC LDL CHOL (test code = 2237) TEST NOT PERFORMED MG/DL <100 NOTE: CALCULATED LDL IS BASED ON DOUGIE-BEEBE METHOD WHICHINCLUDES ADJUSTABLE TRIGLYCERIDE:VLDL CHOLESTEROL RATIO.THIS FACTOR VARIES BY MEASURED TRIGLYCERIDE AND NON-HDLCHOLESTEROL CONCENTRATIONS WITH INCREASED CALCULATED LDL SEENIN HIGHER TRIGLYCERIDE OR LOWER NON-HDL SPECIMENS. FOR MOREINFORMATION, SEE CLIENT ANNOUNCEMENT AT [email or web address] RISK RATIO LDL/HDL (test code = 2238) TEST NOT PERFORMED RATIO <3.55 UNLESS OTHERWISE INDICATED, ALL TESTING PERFORMED [facility] [address] [place] [address] ELECTROMEDICAL SERVICE ENGINEER: ANANYA ROBERSON M.D. CLIA NUMBER [id number] [facility] [place]. [id number] Notes Date/Time Note Provider Source 2023-03-01 10:00:00 [id number] vEFmHuf8KNlNHyZSZ7i9ZX uuepCyabwbz06XtzvEMurx0470-85-97E82:00:00F ormatting of this note is different from the original.Images from the original note were not included.Venipuncture collection performed by clean technique on the right anticubitus. Total of 1 attempts were made. Slight pressure and a bandage/dressing were applied to the site(s). The patient experienced no complications. The following specimens were processed according to instructions and [facility] per lab order on 03/01/2023: LT BLUE SST 2 RED LAV 1 PPT DK GREEN (LiHep) DK GREEN (SodH) WINTERS DK BLUE (K2) DK BLUE (S) ACD Blood Culture NIPT/NTD 27180-2Fbvwo IpcaWD5958-31-56B33:00:27Nurse NoteTXT1.2.840.563542.1.13.104.2.7.2.90242 9|[id number] for patient peve62313-3Umhzh [address] We[id number] EEFCTWMDFQFYRWXN0832-48-24S68:00:271.2.840 .951245.1.72.3.15|1.2.840.242860.1.13.104. 2.7.2.727879_[id number] [facility] 2023-01-24 10:00:00 n5shOc1xyHLA3GJepb7n 7tWePOpSiqi6C6PI/LAvxB iDd8bceENPTIcYdqvrs2dK8462-31-67F36:00:00F ormatting of this note is different from the original.Images from the original note were not included.Venipuncture collection performed by clean technique on the left anticubitus. Total of 1 attempts were made. Slight pressure and a bandage/dressing were applied to the site(s). The patient experienced no complications. The following specimens were processed according to instructions and [facility] per lab order on 01/24/2023:Pt states only Dr Umana bloodwork today LT BLUE SST 1 RED LAV 1 PPT DK GREEN (LiHep) DK GREEN (SodH) WINTERS DK BLUE (K2) DK BLUE (S) ACD Blood Culture NIPT/NTD 25912-5Zgkka BjsuXC2027-72-94T96:14:08Nurse NoteTXT1.2.840.194300.1.13.104.2.7.2.18831 9|[id number] for patient ogbw77760-5Atbsg Note[address] [id number] TKRGWDUKTTFIOHDY3719-07-65F10:14:081.2.840 .025742.1.72.3.15|1.2.840.244319.1.13.104. 2.7.2.727879_[id number] [facility] 2023-01-23 15:40:00 MP0avYWKkenpc2dmKsW5 sEQNqqXraYZj2NIConzStd zDGy/5W09E3pVU7m+5Yh8a2039-62-81O31:40:00 Addended by: FRANDY UMANA MD on: 01/23/2023 05:45 PM Modules accepted: Orders [id number] PraepgfzHQ9168-26-05I94:45:43Addendum DocumentTXT1.2.840.759232.1.13.104.2.7.2.7 92022|[id number] for patient cync37059-0AtzmQZXVGZKOXL99 [address] [id number] JUDELKHEVXIMJQOF3916-62-03V07:45:431.2.840 .609254.1.72.3.15|1.2.840.431665.1.13.104. 2.7.2.727879_[id number] [facility]
[2023-10-21] MEDS ORDERED: NA CHLORIDE 0.9% 100 ML ONE (13:01)
[2023-10-21] MEDS ORDERED: NA CHLORIDE 0.9% 1,000 ML ONE (13:01)
[2023-10-21] MEDS ORDERED: PIPERACIL/TAZO 3.375 GM VIAL IV ONE (13:01)
[2023-10-21] MEDS ORDERED: FAMOTIDINE 20 MG/2 ML VIAL IV ONE (13:01)
[2023-10-21] MEDS ORDERED: VITAMIN K (ADULT) 10 MG/ML ONE (13:01)
[2023-10-21 13:16] LABS: Absolute Eosinophils 0.1 K/uL (0-0.5); Absolute Lymphocytes (CBC) 0.6 K/uL (0.7-4.9); Absolute Monocytes 0.4 K/uL (0.1-1.3); Absolute Neutrophil 3.8 K/uL (1.8-8.0); Basophils % 0.8 % (0-1.3); Eosinophils % 1.3 % (0-4.4); Hematocrit 39.3 % (39.6-49.0); Hemoglobin 13.1 g/dL (13.6-17.9); Lymphocytes % 12.1 % (15.3-44.8); MCH 34.9 pg (27.0-35.0); MCHC 33.4 g/dL (32.0-36.0); MCV 104.5 fL (80-100); MPV 8.7 fL (7.6-11.3); Monocytes % 8.5 % (3.3-12.3); Neutrophils % 77.3 % (41.7-73.7); Platelets 61 thou/uL (152-406); RBC Red Blood Cell Count 3.76 M/uL (4.33-5.43)
--- NOTE | 2023-10-21 13:16 | RAD REPORT ---
EXAM DESCRIPTION: [place] Single View10/21/2023 1:05 pm CLINICAL HISTORY: ABDOMINAL DISTENTION. History of lymphoma COMPARISON: One hundred twenty TECHNIQUE: Portable AP view of the chest. FINDINGS: Right chest wall port in place with catheter tip projecting over the superior cavoatrial j unction. The lungs are clear. No pneumothorax or effusion. The cardiomediastinal contours are unrema rkable. Right seventh rib deformity, likely related to remote fracture. IMPRESSION: No acute cardiopulmonary process.
[2023-10-21 13:20] LABS: PT Prothrombin Time 16.1 SECONDS (9.5-12.5); Protime INR 1.48
[2023-10-21 13:23] LABS: Specific Gravity 1.016 (1.005-1.030); Urine Bilirubin NEGATIVE (Negative); Urine Blood Negative (Negative); Urine Clarity Clear (Clear); Urine Color Yellow (Yellow); Urine Glucose NEGATIVE (Negative); Urine Ketones NEGATIVE (Negative); Urine Microscopic Reflex YN NO UMIC; Urine Nitrite NEGATIVE (Negative); Urine Protein NEGATIVE (Negative); Urine Urobilinogen 1+ (Normal)
[2023-10-21 13:34] LABS: Albumin 2.9 g/dL (3.4-5.0); Albumin/Globulin Ratio 0.7 (1.1-1.8); Anion Gap 7.5 mEq/L (5.0-15.0); Bilirubin Direct 2.6 mg/dL (0-0.2); Bilirubin Indirect, Calculated 3.1 mg/dL (0.2-0.8); Bilirubin Total 5.7 mg/dL (0.2-1.0); Magnesium 1.7 mg/dL (1.6-2.4); Potassium 3.5 mEq/L (3.5-5.1); Protein, Total 6.9 g/dL (6.4-8.2); Troponin High Sensitivity 11.4 pg/mL (<58.9)
[2023-10-21] MEDS ORDERED: MAGNESIUM SULFATE 1 gm IVPB 1 GM/100 ML BAG IV ONE (13:48)
--- NOTE | 2023-10-21 13:53 | RAD REPORT ---
EXAM DESCRIPTION: CT - Chest Abd Pelvis Wo Con - 10/21/2023 12:56 pm CLINICAL HISTORY: Abdominal distention;Cough COMPARISON: Chest Single View dated 10/21/2023 TECHNIQUE: Thin axial CT images of the chest, abdomen, and pelvis, performed without IV contrast. Mu ltiplanar reformats were generated and reviewed. All CT scans are performed using dose optimization technique as appropriate and may include automated exposure control or mA/KV adjustment according to patient size. FINDINGS: The lungs are clear apart from focal areas of scarring at the right apex, favored to be ch ronic.No pleural or pericardial effusion.No intrathoracic adenopathy. The liver shows nodular contour suggesting cirrhosis. Recanalization of the umbilical vein, with mode rate varicosities along the anterior abdominal wall and left flank. Spleen is enlarged measuring 19.2 cm in long axis, with numerous wedge-shaped areas of mineralization suggesting sequelae of small inf arcts. Pancreas, adrenal glands and kidneys are within normal limits. 3 mm gallstone versus calcifie d polyp along the superior wall. Moderate volume free ascites. No evidence of bowel obstruction, free air, or loculated collections. N ormal appendix. No pathologic lymphadenopathy in the abdomen or pelvis. Urinary bladder is decompre ssed limiting evaluation. No worrisome osseous finding. Region of mixed sclerotic and lytic appearance in the right iliac bone, may represent postsurgical sequelae or focal fibrous dysplasia. IMPRESSION: Stigmata of cirrhosis with nodular contour of the liver, portosystemic varicosities, mod erate free ascites, and splenomegaly suggesting portal hypertension. No acute process in the chest. Other incidental findings as above.
[2023-10-21 13:57] LABS: SARS-CoV-2 Antigen CONTROL BLUE LINE VIS/BG OK; SARS-CoV-2 Antigen Rapid Res Negative (Negative)
--- NOTE | 2023-10-21 14:01 | EDPHYS ---
Physician Documentation [facility] Name: Bakari Mena Age: 58 yrs Sex: Male : 1965 Arrival Date: 10/21/2023 Time: : Bed Treatment Private MD: LUCAS Physician Fidel Samuel HPI: 10/20 13:51 This 58 yrs old Male presents to ER via Ambulatory with complaints of val Abdominal Swelling. 13:51 The patient presents with abdominal pain abdominal distention. Onset: The val symptoms/episode began/occurred 3 day(s) ago. The symptoms do not radiate. Associated signs and symptoms: Pertinent positives: anorexia, shortness of breath. The symptoms are described as crampy, steady. Modifying factors: The symptoms are alleviated by nothing, the symptoms are aggravated by movement. Severity of pain: At its worst the pain was mild in the emergency department the pain is unchanged. The patient has experienced similar episodes in the past, multiple times. Historical: - Allergies: 12:34 No Known Allergies; ld1 - PMHx: 12:34 Cirrhosis of liver; ld1 12:35 Stage 4 lymphoma; ld1 - Immunization history:: Adult Immunizations up to date. - Infectious Disease History:: Denies. - Social history:: Smoking status: Patient denies any tobacco usage or history of. Patient uses alcohol. - Family history:: not pertinent. ROS: 13:51 Constitutional: Negative for fever, chills, and weight loss, Eyes: Negative for injury, val pain, redness, and discharge, ENT: Negative for injury, pain, and discharge, Neck: Negative for injury, pain, and swelling, Cardiovascular: Negative for chest pain, palpitations, and edema, Respiratory: Negative for shortness of breath, cough, wheezing, and pleuritic chest pain, Back: Negative for injury and pain, : Negative for injury, bleeding, discharge, and swelling, Skin: Negative for injury, rash, and discoloration, Neuro: Negative for headache, weakness, numbness, tingling, and seizure, Psych: Negative for depression, anxiety, suicide ideation, homicidal ideation, and hallucinations, Allergy/Immunology: Negative for hives, rash, and allergies, Endocrine: Negative for neck swelling, polydipsia, polyuria, polyphagia, and marked weight changes, Hematologic/Lymphatic: Negative for swollen nodes, abnormal bleeding, and unusual bruising, 13:51 Abdomen/GI: Positive for abdominal pain, abdominal distension, 13:51 MS/extremity: Positive for pain, swelling, tenderness, of the right leg and left leg, 13:51 Neuro: Negative for altered mental status, Exam: 13:51 Constitutional: This is a well developed, well nourished patient who is awake, alert, val and in no acute distress. Head/Face: Normocephalic, atraumatic. Eyes: Pupils equal round and reactive to light, extra-ocular motions intact. Lids and lashes normal. Conjunctiva and sclera are non-icteric and not injected. Cornea within normal limits. Periorbital areas with no swelling, redness, or edema. ENT: Nares patent. No nasal discharge, no septal abnormalities noted. Tympanic membranes are normal and external auditory canals are clear. Oropharynx with no redness, swelling, or masses, exudates, or evidence of obstruction, uvula midline. Mucous membranes moist. Neck: Trachea midline, no thyromegaly or masses palpated, and no cervical lymphadenopathy. Supple, full range of motion without nuchal rigidity, or vertebral point tenderness. No Meningismus. Cardiovascular: Regular rate and rhythm with a normal S1 and S2. No gallops, murmurs, or rubs. Normal PMI, no JVD. No pulse deficits. Respiratory: Lungs have equal breath sounds bilaterally, clear to auscultation and percussion. No rales, rhonchi or wheezes noted. No increased work of breathing, no retractions or nasal flaring. Back: No spinal tenderness. No costovertebral tenderness. Full range of motion. Male : Normal genitalia with no discharge or lesions. Skin: Warm, dry with normal turgor. Normal color with no rashes, no lesions, and no evidence of cellulitis. Neuro: Awake and alert, GCS 15, oriented to person, place, time, and situation. Cranial nerves II-XII grossly intact. Motor strength 5/5 in all extremities. Sensory grossly intact. Cerebellar exam normal. Normal gait. Psych: Awake, alert, with orientation to person, place and time. Behavior, mood, and affect are within normal limits. 13:51 Chest/axilla: Inspection: normal, Palpation: is normal, Axilla: are normal, Lymph nodes: lymphadenopathy is not appreciated, 13:51 Cardiovascular: Rate: tachycardic, actual rate is 100 bpm, Rhythm: regular, Pulses: Pulses are 4+ in bilateral radial, brachial, femoral, popliteal, posterior tibial and and dorsalis pedis arteries.. Heart sounds: normal, Edema: 4+ edema to level of left midcalf and right midcalf, JVD: is noted bilaterally, to 3 cm, 13:51 ECG was reviewed by the Attending Physician. 13:51 Musculoskeletal/extremity: Extremities: grossly normal except: pain, swelling, ROM: intact in all extremities, Pulses: are normal with no appreciated deficits, Sensation intact. Compartment Syndrome exam of affected extremity: is normal. Weight bearing: able to fully bear weight, DVT Exam: no pain, negative Homans' sign noted on exam, no appreciated bluish discoloration, no erythema, no increased warmth, swelling, tenderness, 13:51 Neuro: Orientation: is normal, appropriate for stated age, no acute changes, Mentation: is normal, appropriate for stated age, no acute changes, Memory: is normal, appropriate for stated age, no acute changes, Cranial nerves: grossly normal, is grossly normal based on the patient's age, no acute changes, Cerebellar function: is grossly normal, is grossly normal based on the patient's age, no acute changes, Motor: is normal, is grossly normal based on the patient's age, no acute changes, moves all fours, strength is 5/5 in all extremities, Sensation: is normal, Gait: not tested. Babinski testing is normal, seizure activity, is not displayed by the patient, 14:01 ECG was reviewed by the Attending Physician. val Vital Signs: 12:36 BP 181 / 90; Pulse 104; Resp 21; Temp 99(O); Pulse Ox 100% on R/A; Height 5 ft. 8 in. ; ld1 Pain 0/10; 12:49 Weight 117.93 kg; as6 13:24 BP 137 / 90; Pulse 98; Resp 17 S; Pulse Ox 98% on R/A; as6 14:11 BP 133 / 80; Pulse 98; Resp 17 S; Pulse Ox 98% on R/A; as6 15:37 BP 139 / 87; Pulse 95; Resp 13 S; Temp 97.9(TE); Pulse Ox 100% on R/A; as6 16:42 BP 146 / 80; Pulse 101; Resp 20; Pulse Ox 100% ; as6 12:36 Pain Scale: Adult ld1 Franco Coma Score: 13:51 Eye Response: spontaneous(4). Motor Response: obeys commands(6). Verbal Response: val oriented(5). Total: 15. MDM: 12:39 Patient medically screened. val 13:57 Differential diagnosis: bowel obstruction, diverticulitis, Hepatitis, Mesenteric val ischemia or infarction, non-specific abd pain, pancreatitis, Peptic Ulcer Disease, Perf. Duodenal Ulcer, Prostatitis, Ureterolithiasis, urinary tract infection. Data reviewed: vital signs, nurses notes, lab test result(s), EKG, radiologic studies, CT scan, plain films. Consideration of Admission/Observation Escalation of care including admission/observation considered. I considered the following discharge prescriptions or medication management in the emergency department Medications were administered in the Emergency Department. See MAR. Independent interpretation of the following test(s) in the Emergency Department EKG: See my EKG interpretation above. Test considered but Not performed: Ultrasound no abd usg. Care significantly affected by the following chronic conditions: Hypertension, Obesity, Cancer, Liver Disease. 10/20 12:42 Order name: Basic Metabolic Panel; Complete Time: 13:46 10/20 12:42 Order name: CBC with Diff; Complete Time: 14:47 10/20 12:42 Order name: LFT's; Complete Time: 13:46 10/20 12:42 Order name: Magnesium; Complete Time: 13:46 10/20 12:42 Order name: NT PRO-BNP; Complete Time: 13:46 10/20 12:42 Order name: PT-INR; Complete Time: 13:29 10/20 12:42 Order name: Troponin HS; Complete Time: 13:46 10/20 12:42 Order name: Lipase; Complete Time: 13:46 10/20 12:42 Order name: Urinalysis w/ reflexes; Complete Time: 13:29 10/20 12:42 Order name: Blood Culture Adult (2) val 10/20 12:42 Order name: Lactate w/ 2H reflex if indic.; Complete Time: 13:46 10/20 12:42 Order name: Flu; Complete Time: 14:47 10/20 12:42 Order name: SARS RAPID; Complete Time: 14:47 /29 12:42 Order name: AMMONIA; Complete Time: 13:46 [facility] 10/20 12:58 Order name: Type And Screen 10/20 13:20 Order name: CBC Smear Scan; Complete Time: 14:47 EDMS 10/20 12:42 Order name: XRAY Chest (1 view); Complete Time: 13:29 val 10/20 12:42 Order name: CT Chest Abdomen Pelvis W/O Contrast; Complete Time: 14:47 [facility] 10/20 12:42 Order name: EKG; Complete Time: 12:43 [facility] 10/20 12:42 Order name: Cardiac monitoring; Complete Time: 13:20 [facility] 10/20 12:42 Order name: EKG - Nurse/Tech; Complete Time: 12:48 [facility] 10/20 12:42 Order name: IV Saline Lock; Complete Time: 12:56 [facility] 10/20 12:42 Order name: Labs collected and sent; Complete Time: 12:56 [facility] 10/20 12:42 Order name: O2 Per Protocol; Complete Time: 13:20 [facility] 10/20 12:42 Order name: O2 Sat Monitoring; Complete Time: 13:20 [facility] 10/20 12:51 Order name: IV Saline Lock - Large Bore; Complete Time: 12:55 [facility] EC:01 Rate is 100 beats/min. Rhythm is regular. QRS [place] is Normal. MA interval is normal. [facility] QRS interval is normal. QT interval is prolonged at 487 msec. No Q waves. T waves are Normal. No ST changes noted. Clinical impression: NSR w/ Non-specific ST/T Changes and No evidence of ischemia. Interpreted by me. Reviewed by me. Administered Medications: 12:58 CANCELLED (Other Intervention Used): ns 0.9% (30 ml/kg) 30 ml/kg IV at bolus once; as6 Sepsis Protocol 13:20 Drug: Phytonadione Sub-Q 10 mg Sub-Q once Route: Sub-Q; Site: right upper arm; as6 14:51 Follow up: Response: No adverse reaction as6 13:20 Drug: NS 0.9% IV 1000 ml IV at 100 ml/hr continuous Route: IV; Rate: 100 ml/hr; Site: as6 right antecubital; 16:41 Follow up: Response: No adverse reaction; IV Status: Infusion continued upon transfer; as6 IV Intake: 500ml 13:21 Drug: Piperacillin-Tazobactam IVPB 3.375 grams IVPB once over 60 mins; (mix in NS 100 as6 mL) Route: IVPB; Infused Over: 60 mins; Site: right antecubital; 14:50 Follow up: Response: No adverse reaction; IV Status: Completed infusion; IV Intake: as6 100ml 13:21 Drug: Famotidine IVP 20 mg IVP once; dilute with 10 mL 0.9% NaCl; give over 2 minutes as6 Route: IVP; Site: right antecubital; 14:50 Follow up: Response: No adverse reaction as6 13:52 Drug: Magnesium Sulfate IVPB 1 grams IVPB once over 1 hrs Route: IVPB; Infused Over: 1 as6 hrs; Site: right antecubital; 14:51 Follow up: Response: No adverse reaction; IV Status: Completed infusion; IV Intake: as6 100ml 16:40 Drug: Ondansetron IVP 4 mg IVP once; over 2 minutes Route: IVP; Site: right antecubital;as6 16:41 Follow up: Response: No adverse reaction as6 16:41 Drug: morphine IVP or IV 4 mg IVP once over 4 mins Route: IVP; Infused Over: 4 mins; as6 Site: right antecubital; 16:41 Follow up: Response: No adverse reaction as6 Disposition Summary: 10/21/23 14:00 Transfer Ordered Notes: Transfer Location: [facility] val Reason: Higher level of care val Condition: Fair val Problem: new val Symptoms: have improved val Accepting Physician: to [facility] , liver team(10/21/23 16:42) as6 Diagnosis - Alcoholic cirrhosis of liver with ascites val - Dyspnea val - Abnormal coagulation profile val Forms: - Medication Reconciliation Form val - SBAR form val Signatures: Dispatcher [employer] EDFidel Burgos MD MD cha Sims, Lauren, RN RN ld1 William Franklin RN RN as6 Jes Trejo PA-C PAMelinda sb4 Corrections: (The following items were deleted from the chart) 12:43 12:43 BASIC METABOLIC PANEL+C.LAB.BRZ ordered. EDMS EDMS 12:43 12:43 CBC+H.LAB.BRZ ordered. EDMS EDMS 12:43 12:43 HEPATIC FUNCTION+C.LAB.BRZ ordered. EDMS EDMS 12:43 12:43 MAGNESIUM+C.LAB.BRZ ordered. EDMS EDMS 12:43 12:43 PROBNP+C.LAB.BRZ ordered. EDMS EDMS 12:43 12:43 PROTIME (+INR)+COAG.LAB.BRZ ordered. EDMS EDMS 12:43 12:43 Troponin High Sensitivity+C.LAB.BRZ ordered. EDMS EDMS 12:43 12:43 LIPASE+C.LAB.BRZ ordered. EDMS EDMS 12:43 12:43 Urinalysis+U.LAB.BRZ ordered. EDMS EDMS 12:43 12:43 BLOOD CULTURE*+BA.LAB.BRZ ordered. EDMS EDMS 12:43 12:43 LACTATE+C.LAB.BRZ ordered. EDMS EDMS 12:43 12:43 Influenza Screen (A \T\ B)+BA.LAB.BRZ ordered. EDMS EDMS 12:43 12:43 SARS-COV-2 Antigen Rapid+I.LAB.BRZ ordered. EDMS EDMS 12:43 12:43 AMMONIA+C.LAB.BRZ ordered. EDMS EDMS 12:58 12:42 NS 0.9% IV (30 ml/kg) 30 ml/kg IV at bolus once; Sepsis Protocol ordered. [facility] as6 14:02 13:51 Rate is 100 beats/min. Rhythm is regular. QRS [place] is Normal. MA interval is val normal. QRS interval is normal. QT interval is normal. No Q waves. T waves are Normal. No ST changes noted. Clinical impression: NSR w/ Non-specific ST/T Changes, Sinus tachycardia, and No evidence of ischemia. Interpreted by me. Reviewed by me. [facility] 16:42 14:00 to [facility] , liver team [facility] as6
--- NOTE | 2023-10-21 14:01 | ER ---
Nurse's Notes [facility] Name: Bakari Mena Age: 58 yrs Sex: Male : 1965 Arrival Date: 10/21/2023 Time: 12:27 Bed Treatment Private MD: Diagnosis: Alcoholic cirrhosis of liver with ascites;Dyspnea;Abnormal coagulation profile Presentation: 10/20 12:36 Chief complaint: Patient states: Abdominal swelling X 5 days. N/V/D and fever. ld1 Coronavirus screen: At this time, the client does not indicate any symptoms associated with coronavirus-19. Ebola Screen: No symptoms or risks identified at this time. Initial Sepsis Screen: Does the patient meet any 2 criteria? No. Patient's initial sepsis screen is negative. Does the patient have a suspected source of infection? No. Patient's initial sepsis screen is negative. Risk Assessment: Do you want to hurt yourself or someone else? Patient reports no desire to harm self or others. Onset of symptoms was October 21, 2023. 12:36 Method Of Arrival: Ambulatory ld1 12:36 Acuity: NORMA 2 ld1 Triage Assessment: 12:35 General: Appears in no apparent distress. comfortable, Behavior is calm, cooperative, ld1 appropriate for age. Pain: Denies pain. EENT: No signs and/or symptoms were reported regarding the EENT system. Neuro: Level of Consciousness is awake, alert, obeys commands, Oriented to person, place, time, situation. Cardiovascular: Capillary refill < 3 seconds Patient's skin is warm and dry. Respiratory: Airway is patent Respiratory effort is even, unlabored. GI: Abdomen is round non-distended. : No signs and/or symptoms were reported regarding the genitourinary system. Derm: No signs and/or symptoms reported regarding the dermatologic system. Musculoskeletal: No signs and/or symptoms reported regarding the musculoskeletal system. Historical: - Allergies: 12:34 No Known Allergies; ld1 - PMHx: 12:34 Cirrhosis of liver; ld1 12:35 Stage 4 lymphoma; ld1 - Immunization history:: Adult Immunizations up to date. - Infectious Disease History:: Denies. - Social history:: Smoking status: Patient denies any tobacco usage or history of. Patient uses alcohol. - Family history:: not pertinent. Screenin:22 [facility] ED Fall Risk Assessment (Adult) History of falling in the last 3 months, as6 including since admission No falls in past 3 months (0 pts) Confusion or Disorientation No (0 pts) Intoxicated or Sedated No (0 pts) Impaired Gait No (0 pts) Mobility Assist Device Used No (0 pt) Altered Elimination No (0 pt) Score/Fall Risk Level 0 - 2 = Low Risk Oriented to surroundings, Maintained a safe environment, Educated pt \T\ family on fall prevention, incl call for assistance when getting out of bed, Assessed \T\ reinforced patient's understanding of fall precautions. Abuse screen: Denies threats or abuse. Denies injuries from another. Nutritional screening: No deficits noted. Tuberculosis screening: No symptoms or risk factors identified. Assessment: 13:00 General: Appears in no apparent distress. uncomfortable, obese, Behavior is calm, as6 cooperative. Pain: Complains of pain in abdomen. Neuro: Level of Consciousness is awake, alert, obeys commands, Oriented to person, place, time, situation. Cardiovascular: Capillary refill < 3 seconds Patient's skin is warm and dry. Edema is 1+ to left ankle, left foot, left toes, right ankle, right foot and right toes. Respiratory: Reports shortness of breath Respiratory effort is even, unlabored, Respiratory pattern is regular, symmetrical. GI: Abdomen is round distended, noted to have ascites, Reports intolerance of fluids, intolerance of food, nausea. : No deficits noted. No signs and/or symptoms were reported regarding the genitourinary system. EENT: No deficits noted. No signs and/or symptoms were reported regarding the EENT system. Derm: Bruising that is on scattered various colors . Musculoskeletal: Circulation, motion, and sensation intact. 14:14 Reassessment: Patient appears in no apparent distress at this time. as6 Vital Signs: 12:36 BP 181 / 90; Pulse 104; Resp 21; Temp 99(O); Pulse Ox 100% on R/A; Height 5 ft. 8 in. ; ld1 Pain 0/10; 12:49 Weight 117.93 kg; as6 13:24 BP 137 / 90; Pulse 98; Resp 17 S; Pulse Ox 98% on R/A; as6 14:11 BP 133 / 80; Pulse 98; Resp 17 S; Pulse Ox 98% on R/A; as6 15:37 BP 139 / 87; Pulse 95; Resp 13 S; Temp 97.9(TE); Pulse Ox 100% on R/A; as6 16:42 BP 146 / 80; Pulse 101; Resp 20; Pulse Ox 100% ; as6 12:36 Pain Scale: Adult ld1 Shidler Coma Score: 13:51 Eye Response: spontaneous(4). Motor Response: obeys commands(6). Verbal Response: val oriented(5). Total: 15. ED Course: 12:30 Patient arrived in ED. rg4 12:32 Jes Trejo PA-C is PHCP. sb4 12:32 Fidel Samuel MD is Attending Physician. sb4 12:35 Arm band placed on right wrist. ld1 12:37 Triage completed. ld1 12:38 Fidel Samuel MD is Attending Physician. val 12:40 William Franklin, BRITTANY is Primary Nurse. as6 12:57 CT Chest Abdomen Pelvis W/O Contrast In Process Unspecified. EDMS 13:04 XRAY Chest (1 view) In Process Unspecified. EDMS 13:21 Initial lab(s) drawn, by ED staff, sent to lab. Inserted saline lock: 20 gauge in right as6 antecubital area, using aseptic technique. Blood collected. 13:21 First set of blood cultures drawn by ED staff, Urine collected: clean catch specimen, as6 clear, EKG done, by ED staff, reviewed by Fidel Samuel MD. 13:22 Bed in low position. Call light in reach. Side rails up X2. Client placed on continuous as6 cardiac and pulse oximetry monitoring. NIBP monitoring applied. property assessment monitor on. 14:03 initiated transfer to [facility]. bd 14:06 Warm blanket given. PO fluids given. as6 15:38 No provider procedures requiring assistance completed. Patient transferred, IV remains as6 in place. 16:42 Provided Education on: need for transfer . as6 Administered Medications: 12:58 CANCELLED (Other Intervention Used): ns 0.9% (30 ml/kg) 30 ml/kg IV at bolus once; as6 Sepsis Protocol 13:20 Drug: Phytonadione Sub-Q 10 mg Sub-Q once Route: Sub-Q; Site: right upper arm; as6 14:51 Follow up: Response: No adverse reaction as6 13:20 Drug: NS 0.9% IV 1000 ml IV at 100 ml/hr continuous Route: IV; Rate: 100 ml/hr; Site: as6 right antecubital; 16:41 Follow up: Response: No adverse reaction; IV Status: Infusion continued upon transfer; as6 IV Intake: 500ml 13:21 Drug: Piperacillin-Tazobactam IVPB 3.375 grams IVPB once over 60 mins; (mix in NS 100 as6 mL) Route: IVPB; Infused Over: 60 mins; Site: right antecubital; 14:50 Follow up: Response: No adverse reaction; IV Status: Completed infusion; IV Intake: as6 100ml 13:21 Drug: Famotidine IVP 20 mg IVP once; dilute with 10 mL 0.9% NaCl; give over 2 minutes as6 Route: IVP; Site: right antecubital; 14:50 Follow up: Response: No adverse reaction as6 13:52 Drug: Magnesium Sulfate IVPB 1 grams IVPB once over 1 hrs Route: IVPB; Infused Over: 1 as6 hrs; Site: right antecubital; 14:51 Follow up: Response: No adverse reaction; IV Status: Completed infusion; IV Intake: as6 100ml 16:40 Drug: Ondansetron IVP 4 mg IVP once; over 2 minutes Route: IVP; Site: right antecubital;as6 16:41 Follow up: Response: No adverse reaction as6 16:41 Drug: morphine IVP or IV 4 mg IVP once over 4 mins Route: IVP; Infused Over: 4 mins; as6 Site: right antecubital; 16:41 Follow up: Response: No adverse reaction as6 Medication: 13:22 VIS not applicable for this client. as6 Intake: 14:50 IV: 100ml; Total: 100ml. as6 14:51 IV: 100ml; Total: 200ml. as6 16:41 IV: 500ml; Total: 700ml. as6 Outcome: 14:00 ER care complete, transfer ordered by MD. neal 16:42 Transferred by [facility] to [facility], Transfer form completed. as6 X-rays sent w/ patient. 16:42 Condition: stable 16:42 Instructed on the need for transfer, 16:42 Patient left the ED. as6 Signatures: Dispatcher [employer] EDGrecia Wilcox Corey, MD MD cha Garcia, Rubi rg4 Gina Vazquez RN RN ld1 William Franklin RN RN as6 Jes Trejo, VASILE BURNETTE sb4 Corrections: (The following items were deleted from the chart) 12:38 12:36 BP 181 / 90; Pulse 104bpm; Resp 18bpm; Pulse Ox 100% RA; Temp 99F Oral; Height 5 ld1 ft. 8 in.; Pain 0/10, Adult; ld1
[2023-10-21 14:18] LABS: Platelet Estimate DECR; White Blood Cell Scan OK (OK)
[2023-10-21 14:19] LABS: Anisocytosis 1+; Blood Morphology Comment NOTED (NOT SEEN); Poikilocytosis 1+
[2023-10-21] MEDS ORDERED: ONDANSETRON 4 MG/2 ML VIAL ONE (16:36)
[2023-10-21] MEDS ORDERED: MORPHINE 4 MG/ML SYR ONE (16:36)
[2023-10-21 17:44] VITALS: BP 146/80; TEMP 97.9; O2SAT 100
--- NOTE | 2023-10-22 14:45 | EKG ---
Test Date: 2023-10-21 Test Time: 12:45:33 Benefits Analyst: MEASUREMENT RESULTS: Intervals: Rate: 100 DC: 146 QRSD: 82 QT: 378 QTc: 487 [place]: P: 50 DC: 146 QRS: 16 T: 33 INTERPRETIVE STATEMENTS: Normal sinus rhythm Prolonged QT Abnormal ECG No previous ECG available for comparison Electronically Signed On 10-22-23 14:43:47 CDT by Dangelo Milner
== END 2023-10-21 16:42 | disposition short-term general hospital (02) ==
LOC: ER 12:27
DX: K70.31 Alcoholic cirrhosis of liver with ascites (principal); R06.00 Dyspnea, unspecified; R79.1 Abnormal coagulation profile
CPT/HCPCS: 36415; 71045; 71250; 74176; 80048; 80076; 81003; 82140; 83605; 83690; 83735; 83880; 84484; 85025; 85610; 86850; 86900; 86901; 87040; 87804; 87811; 93005; 96361; 96365; 96372; 96375; 99285; J2405; J2543; J3430; J3475; J7030

== ENCOUNTER 2025-01-30 12:11 | Emergency (ER) | payer OTHER, SELFPAY ==
[2025-01-30 14:48] LABS: Absolute Lymphocytes (CBC) 0.7 K/uL (0.7-4.9); Hematocrit 38.5 % (39.6-49.0); Hemoglobin 12.8 g/dL (13.6-17.9); MCH 29.7 pg (27.0-35.0); MCHC 33.3 g/dL (32.0-36.0); MCV 89.0 fL (80-100); MPV 8.1 fL (7.6-11.3); Nucleated RBC Absolute Count 0.0 (0-0); Nucleated Red Blood Cells % 0.1 % (0-0); RBC Red Blood Cell Count 4.32 M/uL (4.33-5.43); White Blood Count 3.40 thou/uL (4.3-10.9)
[2025-01-30 14:55] LABS: PT Prothrombin Time 13.5 SECONDS (10-13.0); Protime INR 1.2
[2025-01-30 15:09] LABS: ALT/SGPT 46.0 U/L (16-61); AST/SGOT 70.0 U/L (15-37); Albumin 3.6 g/dL (3.4-5.0); Albumin/Globulin Ratio 0.8 (1.1-1.8); Alkaline Phosphatase 130.0 U/L (45-117); Anion Gap 7.2 mEq/L (5.0-15.0); BUN Blood Urea Nitrogen 12.0 mg/dL (7-18); Globulin 4.8 g/dL (2.3-3.5); Glucose Level 116.0 mg/dL (74-106); Lipase 20.0 U/L (13-75); Potassium 4.2 mEq/L (3.5-5.1)
--- NOTE | 2025-01-30 16:13 | RAD REPORT ---
EXAMINATION: CT Abdomen Pelvis W Contrast CLINICAL INDICATION: Male, 60 years old. ABD PAIN TECHNIQUE: CT abdomen and pelvis was performed, after the administration of IV contrast, as per depar tment protocol. Axial, sagittal and coronal reconstructions were obtained. One or more of the following dose reduction techniques were used: Automated exposure control, adjustment of the mA and k V according to patient size, and iterative reconstruction. Unless otherwise specified, incidental findings do not require dedicated imaging follow-up. COMPARISON: 10/21/2023 FINDINGS: LOWER CHEST: Trace right layering pleural effusion. LIVER: Nodular contour with heterogeneity and numerous small hypoattenuating lesions not exceeding 1 cm. No other suspicious focal lesion. Sequelae of portal hypertension with portosystemic shunting at the splenic hilum and along the umbilicus and anterior abdominal wall. BILIARY SYSTEM: Moderate gallbladder distention, with 4 mm calcific and the dependent wall focus, may represent a calcified polyp or adherent calculus. SPLEEN: Splenomegaly with stable calcific foci superiorly and inferiorly, overall measuring 18.7 cm. No focal lesion. PANCREAS: No mass, ductal dilation, or ira-pancreatic fluid. ADRENALS: Normal; no mass. KIDNEYS: Normal size and contour. No hydronephrosis. URINARY BLADDER: Unremarkable. GASTROINTESTINAL TRACT: No evidence of free air, significant intra-abdominal free fluid, bowel obstru ction or abscess. APPENDIX: Normal appendix. LYMPH NODES: No lymphadenopathy. MUSCULOSKELETAL: Right iliac mixed lytic and sclerotic lesion is stable ADDITIONAL FINDINGS: None. IMPRESSION: Moderate gallbladder distention with mild pericholecystic fluid, nonspecific. Please correlate clinic ally for acute cholecystitis. Stigmata of cirrhosis with portal hypertension and splenomegaly. Trace right layering pleural effusion. Other stable findings as above.
[2025-01-30 16:35] LABS: Blood Morphology Comment NOTED (NOT SEEN); Ovalocytes SLIGHT; White Blood Cell Scan OK (OK)
--- NOTE | 2025-01-30 17:55 | ER ---
Nurse's Notes [facility] Name: Bakari Mena Age: 60 yrs Sex: Male : 1965 Arrival Date: 01/30/2025 Time: 12:11 Bed 2 Private MD: Diagnosis: Other cirrhosis of liver;Elevated bilirubin;Abdominal fullness Presentation: 01/30 13:00 Chief complaint: Patient states: Worsening abdominal bloating for 1 month. No fever or ll1 N/V/D. Coronavirus screen: Client denies travel out of the [place] in the last 14 days. At this time, the client does not indicate any symptoms associated with coronavirus-19. Ebola Screen: Patient denies travel to an Ebola-affected area in the 21 days before illness onset. Initial Sepsis Screen: Does the patient meet any 2 criteria? No. Patient's initial sepsis screen is negative. Does the patient have a suspected source of infection? No. Patient's initial sepsis screen is negative. Risk Assessment: Do you want to hurt yourself or someone else? Patient reports no desire to harm self or others. Onset of symptoms was December 30, 2024. 13:00 Method Of Arrival: Ambulatory ll1 13:00 Acuity: NORMA 3 ll1 Triage Assessment: 13:00 General: Appears uncomfortable, Behavior is calm, cooperative, appropriate for age. ll1 Pain: Complains of pain in abdomen. GI: Reports lower abdominal pain, upper abdominal pain, bloating. Historical: - Allergies: 12:48 No Known Allergies; ll1 - PMHx: 12:48 cirrhosis of liver; stage 4 lymphoma; ll1 14:30 Hepatitis C; aa5 - PSHx: 12:59 hernia repair; ll1 - Immunization history:: Adult Immunizations up to date. - Infectious Disease History:: Denies. - Social history:: Smoking status: Patient denies any tobacco usage or history of. Screenin:30 [facility] ED Fall Risk Assessment (Adult) History of falling in the last 3 months, aa5 including since admission No falls in past 3 months (0 pts) Confusion or Disorientation No (0 pts) Intoxicated or Sedated No (0 pts) Impaired Gait No (0 pts) Mobility Assist Device Used No (0 pt) Altered Elimination No (0 pt) Score/Fall Risk Level 0 - 2 = Low Risk Oriented to surroundings, Maintained a safe environment, Educated pt \T\ family on fall prevention, incl call for assistance when getting out of bed, Assessed \T\ reinforced patient's understanding of fall precautions. Abuse screen: Denies threats or abuse. Nutritional screening: No deficits noted. Tuberculosis screening: No symptoms or risk factors identified. Assessment: 12:49 Reassessment: not in lobby when called to triage. ll1 14:18 Reassessment: Patient and/or family updated on plan of care and expected duration. Pain jl7 level reassessed. 14:30 General: Appears comfortable, Behavior is calm, cooperative. Pain: Denies pain. Neuro: aa5 Level of Consciousness is awake, alert, obeys commands, Oriented to person, place, time, situation. Cardiovascular: Heart tones S1 S2 present Edema 1+ pitting edema noted to bilateral lower extremities. Rhythm is regular. Respiratory: Airway is patent Respiratory effort is even, unlabored, Respiratory pattern is regular, symmetrical. GI: Abdomen is round abdominal swelling noted, pt reports x 1 month ago. Bowel sounds present X 4 quads. Abdomen is tender to palpation X 4 quads. Patient currently denies diarrhea, nausea, vomiting. : No signs and/or symptoms were reported regarding the genitourinary system. EENT: No signs and/or symptoms were reported regarding the EENT system. Derm: Skin is pink, warm \T\ dry. Musculoskeletal: Range of motion: intact in all extremities. 15:37 Reassessment: Patient is alert, oriented x 3, equal unlabored respirations, skin aa5 warm/dry/pink. 17:00 Reassessment: US at bedside . aa5 18:00 Reassessment: Patient is alert, oriented x 3, equal unlabored respirations, skin aa5 warm/dry/pink. 19:10 Reassessment: Patient appears in no apparent distress at this time. No changes from cp4 previously documented assessment. Patient and/or family updated on plan of care and expected duration. Pain level reassessed. Patient is alert, oriented x 3, equal unlabored respirations, skin warm/dry/pink. Vital Signs: 13:00 BP 132 / 82; Pulse 65; Resp 18; Temp 97.9; Pulse Ox 98% ; Weight 111.58 kg; Height 5 ll1 ft. 7 in. ; Pain 2/10; 15:37 BP 132 / 73; Pulse 71; Resp 20 S; Pulse Ox 99% on R/A; aa5 16:34 BP 120 / 69; Pulse 70; Resp 18 S; Pulse Ox 98% on R/A; aa5 18:00 BP 124 / 78; Pulse 65; Resp 19 S; Pulse Ox 100% on R/A; aa5 19:12 BP 109 / 70; Pulse 60; Resp 18; Pulse Ox 99% ; cp4 20:28 BP 128 / 57; Pulse 63; Resp 18; Pulse Ox 100% ; cp4 13:00 Body Mass Index 38.53 (111.58 kg, 170.18 cm) ll1 13:00 Pain Scale: Adult ll1 ED Course: 12:19 Patient arrived in ED. cj3 12:48 Arm band placed on. ll1 12:49 Sayra Ibanez is Attending Physician. ci 12:49 Sayra Ibanez is Attending Physician. ci 13:02 Triage completed. ll1 14:18 Patient placed in an exam room, on a stretcher. jl7 14:24 Naz Candelaria, RN is Primary Nurse. aa5 14:24 Primary Nurse role handed off by Naz Candelaria, BRITTANY bp 14:24 Renard Waggoner, BRITTANY is Primary Nurse. bp 14:30 Patient has correct armband on for positive identification. Bed in low position. Call aa5 light in reach. Side rails up X 1. Pulse ox on. NIBP on. 14:30 Initial lab(s) drawn, by me, sent to lab. Inserted saline lock: 20 gauge in right aa5 antecubital area, using aseptic technique. Blood collected. Flushed with 10 mL NS. 15:18 No provider procedures requiring assistance completed. aa5 15:24 CT Abd/Pelvis - IV Contrast Only In Process Unspecified. EDMS 17:12 US Abdomen Limited In Process Unspecified. EDMS 18:24 called [facility] for transfer talked to Colleen. sp 19:04 Report given to Carrol, RN and BRITTANY Lockhart. aa5 19:12 called for doc to doc update, they are switching shifts. kmf 19:23 Attending Physician role handed off by Sayra Ibanez ms3 19:23 Eric Vazquez DO is Attending Physician. ms3 20:47 Provided Education on: Follow up with primary care.. tb4 20:47 IV discontinued, intact, bleeding controlled, No redness/swelling at site. Pressure tb4 dressing applied. Administered Medications: 19:57 Drug: Rocephin IV 2 grams IV at per protocol once; Given slow IV push per pharmarcy cp4 instructions Route: IV; Rate: per protocol; Site: right antecubital; 19:58 Follow up: IV Status: Completed infusion cp4 Medication: 15:16 VIS not applicable for this client. aa5 Outcome: 17:55 ER care complete, transfer ordered by MD. ci 19:37 Discharge ordered by MD. ms3 20:48 Patient left the ED. vc1 20:48 Discharged to home ambulatory, tb4 20:48 Condition: stable 20:48 Discharge instructions given to patient, Instructed on discharge instructions, follow up and referral plans. Demonstrated understanding of instructions, follow-up care, Signatures: Dispatcher [employer] EDMS Reanna Rome Audri, RN RN aa5 Devin Thompson RN RN jl7 Renard Waggoner RN RN Perla Ross RN RN ll1 Eric Vazquez DO DO ms3 Sommer Langford RN RN vc1 Carrol Downs cp4 Sayra Ibanez Kelsey Maroul [facility] Cheli Love 3 Chantelle Trejo, RN RN tb4
--- NOTE | 2025-01-30 17:55 | EDPHYS ---
Physician Documentation [facility] Name: Bakari Mena Age: 60 yrs Sex: Male : 1965 Arrival Date: 01/30/2025 Time: 12:11 Bed 2 Private MD: ED Physician Eric Vazquez HPI: 01/30 16:50 This 60 yrs old Male presents to ER via Ambulatory with complaints of Abdominal ci Swelling. 16:50 Patient is a 60-year-old male with PMH of liver cirrhosis, hepatitis C, lymphoma who ci presents to the ED with chief complaint increasing abdominal bloating that began a month ago. Endorses liver cirrhosis with prior paracentesis several years ago. Denies any nausea/vomiting, no diarrhea, constipation, fever.. Historical: - Allergies: 12:48 No Known Allergies; ll1 - PMHx: 12:48 cirrhosis of liver; stage 4 lymphoma; ll1 14:30 Hepatitis C; aa5 - PSHx: 12:59 hernia repair; ll1 - Immunization history:: Adult Immunizations up to date. - Infectious Disease History:: Denies. - Social history:: Smoking status: Patient denies any tobacco usage or history of. ROS: 16:50 Constitutional: Negative for fever, chills, and weight loss, Cardiovascular: Negative ci for chest pain, palpitations, and edema, Respiratory: Negative for shortness of breath, cough, wheezing, and pleuritic chest pain, 16:50 Abdomen/GI: Positive for abdominal pain, abdominal distension, Negative for nausea, vomiting, and diarrhea, constipation, black/tarry stool, rectal pain, Exam: 16:50 Constitutional: This is a well developed, well nourished patient who is awake, alert, ci and in no acute distress. Head/Face: Normocephalic, atraumatic. Cardiovascular: Regular rate and rhythm with a normal S1 and S2. No gallops, murmurs, or rubs. Normal PMI, no JVD. No pulse deficits. Respiratory: Lungs have equal breath sounds bilaterally, clear to auscultation and percussion. No rales, rhonchi or wheezes noted. No increased work of breathing, no retractions or nasal flaring. Abdomen/GI: Soft, non-tender, with normal bowel sounds. Abdomen protuberant and Slightly distended. No guarding or rebound. No evidence of tenderness throughout. Neuro: Awake and alert, GCS 15, oriented to person, place, time, and situation. Cranial nerves II-XII grossly intact. Motor strength 5/5 in all extremities. Sensory grossly intact. Cerebellar exam normal. Normal gait. Vital Signs: 13:00 BP 132 / 82; Pulse 65; Resp 18; Temp 97.9; Pulse Ox 98% ; Weight 111.58 kg; Height 5 ll1 ft. 7 in. ; Pain 2/10; 15:37 BP 132 / 73; Pulse 71; Resp 20 S; Pulse Ox 99% on R/A; aa5 16:34 BP 120 / 69; Pulse 70; Resp 18 S; Pulse Ox 98% on R/A; aa5 18:00 BP 124 / 78; Pulse 65; Resp 19 S; Pulse Ox 100% on R/A; aa5 19:12 BP 109 / 70; Pulse 60; Resp 18; Pulse Ox 99% ; cp4 20:28 BP 128 / 57; Pulse 63; Resp 18; Pulse Ox 100% ; cp4 13:00 Body Mass Index 38.53 (111.58 kg, 170.18 cm) ll1 13:00 Pain Scale: Adult ll1 MDM: 12:49 Medical Screening Exam initiated ci 17:52 Differential Diagnosis Liver cirrhosis, ascites, colitis, SBO, perforated viscus, ci cholecystitis. Low suspicion for SBP. Data reviewed: vital signs, nurses notes. ED course: CT abdomen/pelvis shows a distended gallbladder with mild pericholecystic fluid, questionable cholecystitis. Discussed with general surgeon Dr. Corcoran who stated that patient's gallbladder will likely be distended given his history of liver cirrhosis. Recommendations to transfer to a facility with GI capabilities given elevated T bilirubin.. 19:00 Transition of care: Care assumed from [facility]. ms3 19:39 Consideration of Admission/Observation Transfer considered. Spoke with Dr Carmen- ms3 Bilirubin 2.2 9 months ago. Management of patient was discussed with the following: Hospitalist: Dr Carmen at [facility]. Independent interpretation of the following test(s) in the Emergency Department CT Scan: My interpretation is CT images reviewed by me do not reveal ascities. 19:42 Care significantly affected by the following chronic conditions: Cancer, Liver Disease. ms3 Counseling: I had a detailed discussion with the patient and/or guardian regarding the historical points, exam findings, and any diagnostic results supporting the discharge/admit diagnosis, lab results, radiology results, the need for outpatient follow up, to return to the emergency department if symptoms worsen or persist or if there are any questions or concerns that arise at home. ED course: . ED course: . 19:45 ED course: Discussed case with Dr. Carmen at [facility]. Patient ms3 with bilirubin of 2.29 months ago. Ultrasound does not reveal acute cholecystitis. Gallbladder distention likely secondary to liver cirrhosis. Patient has follow-up with [facility] oncology and hepatology. Patient to follow-up with his specialist in 2 to 3 days. Discussed transfer versus discharge and outpatient follow-up with patient. Patient prefers outpatient follow-up. He states he came to the emergency department because he was concerned he was full of fluid. On reevaluation patient is alert and oriented x 4, in no apparent distress, nontoxic-appearing, speaking full sentences. Patient's abdomen is nontender, Grimes sign negative, no right upper quadrant tenderness. Patient denies nausea, vomiting, fevers, chills. Return precautions to include fevers, chills, vomiting, worsening abdominal pain, or any other concerns discussed with patient. All questions were answered.. 01/30 13:09 Order name: CBC with Diff; Complete Time: 16:44 ci 0809 13:09 Order name: CMP; Complete Time: 16:44 ci 08 13:09 Order name: Lipase; Complete Time: 16:44 ci 01/30 13:09 Order name: PT-INR; Complete Time: 16:44 ci 01/30 14:55 Order name: CBC Smear Scan; Complete Time: 16:44 EDMS 01/30 13:09 Order name: CT Abd/Pelvis - IV Contrast Only; Complete Time: 16:44 ci 01/30 16:47 Order name: US Abdomen Limited; Complete Time: 18:08 ci 08 18:08 Interpretation: Abnormal. ci 08 13:09 Order name: IV Saline Lock; Complete Time: 14:34 ci 01/30 13:09 Order name: Labs collected and sent; Complete Time: 14:34 ci Administered Medications: 19:57 Drug: Rocephin IV 2 grams IV at per protocol once; Given slow IV push per pharmarcy cp4 instructions Route: IV; Rate: per protocol; Site: right antecubital; 19:58 Follow up: IV Status: Completed infusion cp4 Disposition Summary: 01/30/25 19:37 Discharge Ordered Notes: Location: Home ms3 Condition: Stable(01/30/25 19:37) ms3 Diagnosis - Other cirrhosis of liver ms3 - Elevated bilirubin ms3 - Abdominal fullness ms3 Followup: ms3 - With: Private Physician - When: 2 - 3 days - Reason: Recheck today's complaints Discharge Instructions: - Discharge Summary Sheet ms3 - Cirrhosis ms3 Forms: - Medication Reconciliation Form ms3 - Antibiotic Education ms3 - Prescription Opioid Use ms3 - Patient Portal Instructions ms3 - Leadership Thank You Letter ms3 Signatures: Dispatcher [employer] EDMS Naz Candelaria, RN RN aa5 Perla Underwood RN RN ll1 Eric Vazquez, DO ms3 Carrol Downs cp4 Sayra Ibanez ci Enrico Blackburn, CAFE ATTENDANT-C CAFE ATTENDANT-Cdr5 Chantelle Trejo RN RN tb4 Corrections: (The following items were deleted from the chart) 16:47 16:47 Abdomen Limited+US.RAD.BRZ ordered. EDMS EDMS 19:36 17:55 OSH ci ms3 19:36 17:55 [facility] ci ms3 19:36 17:55 Higher level of care ci ms3 19:36 17:55 Stable ci ms3 19:36 17:55 an ongoing problem ci ms3 19:36 17:55 are unchanged ci ms3 19:36 17:55 Unspecified cirrhosis of liver ci ms3 19:36 17:55 Other disorders of bilirubin metabolism - Elevated bilirubin ci ms3 19:36 17:55 Disease of gallbladder, unspecified - Distended gallbladder ci ms3 19:47 19:45 ED course: Discussed case with Dr. Carmen at [facility]. ms3 Patient with bilirubin of 2.29 months ago. Ultrasound does not reveal acute cholecystitis. Gallbladder distention likely secondary to liver cirrhosis. Patient has follow-up with [facility] oncology and hepatology. Patient to follow-up with his specialist in 2 to 3 days. Discussed transfer versus discharge and outpatient follow-up with patient. Patient prefers outpatient follow-up. He states he came to the emergency department because he was concerned he was full of fluid. On reevaluation patient is alert and oriented x 4, in no apparent distress, nontoxic-appearing, speaking full sentences. Patient's abdomen is nontender, Grimes sign negative, no right upper quadrant tenderness. Patient denies nausea, vomiting, fevers, chills.. ms3
--- NOTE | 2025-01-30 18:05 | RAD REPORT ---
EXAMINATION: US Abdomen Exam Limited CLINICAL HISTORY: [facility] MAIN N gall bladder distension on CT, R/O Cholecystitis Bed Name: 2 COMPARISON: Abdomen CT of the same day. TECHNIQUE: Limited upper abdominal grayscale and color flow sonographic images. FINDINGS: Gallbladder: Diffuse gallbladder distention. Wall thickening to 5 mm. No gallstones. Mild layering sl udge. Reportedly negative sonographic Grimes sign. Bile ducts: No intrahepatic or extrahepatic biliary dilatation. Common bile duct measures 4 mm. Liver: Visualized portions of the liver demonstrate diffuse nodular contour and parenchymal coarsenin g. Fluid: No ascites. IMPRESSION: Diffuse gallbladder distention. Wall thickening, which could relate to ongoing cirrhosis. No other fi ndings on ultrasound to suggest acute cholecystitis.
[2025-01-30] MEDS ORDERED: CEFTRIAXONE 1000 MG/VIAL ONE (19:37)
[2025-01-30] MEDS ORDERED: CEFTRIAXONE 2000 MG/VIAL ONE (19:40)
[2025-01-30 20:55] VITALS: TEMP 97.9
[2025-01-30 21:01] VITALS: BP 128/57; O2SAT 100
== END 2025-01-30 20:48 | disposition home or self-care (01) ==
LOC: ER 12:11
DX: K74.69 Other cirrhosis of liver (principal); E80.7 Disorder of bilirubin metabolism, unspecified
CPT/HCPCS: 85025; 36415; 85610; 83690; 80053; 74177; 76705; 96374; 99284; Q9967; J0696